=== PATIENT | male | born 1950 | race Caucasian/White ===

== ENCOUNTER 2023-07-06 09:17 | Outpatient (OUT) | payer MEDICARE, OTHER, SELFPAY ==
[2023-07-07 05:07] LABS: PSA, Free 0.93 ng/mL
== END 2023-07-06 09:18 | disposition home or self-care (01) ==
PROVIDERS: PCP Internal Medicine; Visit Provider Urology
DX: R97.20 Elevated prostate specific antigen [PSA] (principal); N40.1 Benign prostatic hyperplasia with lower urinary tract symptoms
CPT/HCPCS: 36415; 84153; 84154

== ENCOUNTER 2023-07-15 09:29 | Outpatient (OUT) | payer MEDICARE, OTHER, SELFPAY ==
[2023-07-15 10:08] LABS: Basophils Absolute Auto 0.1 10^3/uL (0.0-0.1); Eosinophils Absolute Auto 0.2 10^3/uL (0.0-0.7); Eosinophils Percent Auto 4.4 % (0.9-7.0); Hematocrit 37.6 % (42.0-54.0); Hemoglobin 13.1 g/dL (14.0-18.0); Immature Granulocytes Abs Auto 0.01 10^3/uL (0.00-0.03); Immature Granulocytes Pct Auto 0.2 % (0.0-0.5); Lymphocytes Absolute Auto 1.6 10^3/uL (1.2-3.8); Lymphocytes Percent Auto 31.3 % (20.5-60.0); Mean Corpuscular HGB Conc 34.8 g/dL (29.9-35.2); Mean Corpuscular Hemoglobin 32.1 pg (25.9-34.0); Mean Corpuscular Volume 92.2 fL (80.0-94.0); Mean Platelet Volume 9.8 fL (9.5-13.5); Monocytes Absolute Auto 0.5 10^3/uL (0.3-0.8); Monocytes Percent Auto 9.6 % (1.7-12.0); Neutrophils Absolute Auto 2.7 10^3/uL (1.4-6.5); Neutrophils Percent Auto 53.5 % (43.0-75.0); Platelet Count 188 10^3/uL (150-450); Red Blood Count 4.08 10^6/uL (4.70-6.10); Red Cell Distribution Width 12.1 % (11.0-15.0)
[2023-07-15 11:17] LABS: Creatinine Urine Random 27.89 mg/dL (20.00-300.00); Microalbum Creatinine Ratio Ur 46.6 mg/g (0.0-29.9); Microalbumin Urine Random <1.3 mg/dL (<=30.0)
[2023-07-15 11:21] LABS: Alanine Aminotransferase 22 U/L (16-63); Albumin Level 3.8 g/dL (3.4-5.0); Alkaline Phosphatase 74 U/L (46-116); Anion Gap 9.1; Aspartate Amino Transferase 17 U/L (15-37); BUN Creatinine Ratio 21.2; Bilirubin Total 0.9 mg/dL (0.2-1.0); Calcium 8.9 mg/dL (8.5-10.1); Carbon Dioxide 31.3 mmol/L (21.0-32.0); Chloride 103 mmol/L (98-107); Chol HDL Ratio 3.1; Cholesterol 138 mg/dL (<=200); Estimated GFR (African America >60 (>=60); Estimated GFR (Non-African Ame >60 (>=60); Globulin 3.7 g/dL; Glucose 129 mg/dL (74-106); HDL Cholesterol 44 mg/dL (40-60); LDL Cholesterol Calculated 86.4 mg/dL; Potassium 3.4 mmol/L (3.5-5.1); Sodium 140 mmol/L (136-145); Total Protein 7.5 g/dL (6.4-8.2); Triglycerides 38 mg/dL (<=150); VLDL CHOLESTEROL 7.6 mg/dL
[2023-07-15 14:23] LABS: Estimated Average Glucose 140 mg/dL; Glycohemoglobin A1C 6.5 % (4.5-6.2)
== END 2023-07-15 09:30 | disposition home or self-care (01) ==
LOC: LAB 09:33
PROVIDERS: PCP Internal Medicine; Visit Provider Internal Medicine
DX: E11.21 Type 2 diabetes mellitus with diabetic nephropathy (principal); N18.32 Chronic kidney disease, stage 3b; I12.9 Hypertensive chronic kidney disease with stage 1 through stage 4 chronic kidney disease, or unspecified chronic kidney disease
CPT/HCPCS: 36415; 80053; 80061; 82043; 82570; 83036; 85025

== ENCOUNTER 2023-11-04 09:42 | Outpatient (OUT) | payer MEDICARE, OTHER, SELFPAY ==
--- NOTE | 2023-11-04 10:21 | CA_ITS ---
Patient Name Site Name ALINE OROSCO [facility] Account No Medical Record Number Age Sex Date Time [id number] [facility]:[id number] M 11/04/2023 10:00 At the Request Of CASSANDRA BRYAN ECHOCARDIOGRAM REPORT PROCEDURE: CA ECHO DOPPLER COMPLETE INDICATIONS: Atrial fibrillation, hypertension, diabetes COMPARISON: None. DESCRIPTION: COMPLETE ECHOCARDIOGRAM Real-time transthoracic echocardiography with 2D, M-mode, spectral and color flow Doppler performed. QUALITY: Technical quality was good. 76 , 245#, BSA 2.42 m2 LEFT VENTRICLE: Normal chamber size. Mild concentric left ventricular hypertrophy. Normal systolic function. LV EF: Normal left ventricular ejection fraction, (55%). DIASTOLIC: Diastolic function is indeterminate. ATRIAL SEPTUM: LEFT ATRIUM: Moderate dilatation. RIGHT ATRIUM: Moderate dilatation. RIGHT VENTRICLE: Normal chamber size. Normal right ventricular systolic function. TRICUSPID VALVE: Normal mobility and thickness. No stenosis with trivial regurgitation. Doppler studies reveal moderately elevated right sided pressures. RVSP 45 mmHg MITRAL VALVE: Mildly thickened with normal mobility. No evidence of mitral valve stenosis. Mild mitral annular calcification. Trivial mitral regurgitation. AORTIC VALVE: Normal trileaflet appearance. Mildly calcified aortic valve. Normal leaflet mobility. No evidence of aortic valve stenosis. No aortic regurgitation. AORTIC ROOT: Normal diameter and appearance. PULMONIC VALVE: Normal thickness and mobility. No stenosis. Trivial regurgitation. PERICARDIUM: No evidence of pericardial effusion. IVC: Not well visualized. PLEURA: CONCLUSION: 1. Normal left ventricular systolic function. LVEF is 55%. 2. Normal right ventricular size and systolic function. 3. No significant valvular dysfunction. 4. Moderate biatrial dilatation. 5. Moderately elevated right-sided pressures. RVSP is 45 mmHg. Adult Echocardiography Procedure Report Left Ventricle LVEDD (3.7 - 5.6 cm): 4.94 cm LVESD (2.2 - 4.0 cm): 3.22 cm LVIVS thickness (0.6 - 1.2 cm): 1.38 cm LVPW thickness (0.5 - 1.0 cm): 1.16 cm e': 0.11 m/s E - e': 6.57 LVOT Max Gradient: 1.82 mm[Hg] LVOT Area (cm2): 0.67 m/s Peak Velocity (LVOT): 0.67 m/s Mean Velocity (LVOT): 0.47 m/s LVOT Diameter 2.43 cm Left Atrium LA Volume Index (2D A2C): 47.00 ml/m2 Left Atrium Systolic Dimension: 5.47 cm Mitral Valve MV E to A Ratio: 2.05 Mitral Valve A-Wave Peak Velocity: 0.35 m/s Mitral Valve E-Wave Peak Velocity: 0.71 m/s Right Ventricle Aorta AO Root Diam: 3.73 cm Ascending Ao Diam: 3.31 cm Aortic Valve AoV Area (Peak Rick): 2.68 cm2, 2.68 cm2 AoV Area (VTI): 4.09 cm2, 4.09 cm2 Peak Velocity(Antegrade Flow): 1.17 m/s Peak Gradient(Antegrade Flow): 5.47 mm[Hg] Mean Velocity(Antegrade Flow): 0.70 m/s Mean Gradient(Antegrade Flow): 2.36 mm[Hg] Velocity Time Integral: 22.35 cm Tricuspid Valve Peak Velocity (Regurgitant Flow): 3.06 m/s Pulmonic Valve Peak Velocity: 0.89 m/s Peak Gradient: 3.27 mm[Hg], 3.09 mm[Hg] Right Atrium Right Atrium Systolic Pressure: 62.82 ml, 62.82 ml Dictated by: Carlitos Soria M.D. on 11/04/2023 at 19:51 Approved by: Carlitos Soria M.D. on 11/04/2023 at 19:55
== END 2023-11-04 09:43 | disposition home or self-care (01) ==
LOC: CARD 09:42
PROVIDERS: PCP Internal Medicine; Visit Provider Nurse Practitioner
DX: I48.0 Paroxysmal atrial fibrillation (principal)
CPT/HCPCS: 93306

== ENCOUNTER 2024-01-04 08:59 | Outpatient (OUT) | payer MEDICARE, OTHER, SELFPAY ==
--- OUTSIDE RECORDS SUMMARY | 2024-01-04 09:20 | XMS_ITS | CCD ---
Author Name Unknown Address [address] [place] [address] Organization [facility] Care Team Providers Care Compensation Business Partner Name Role Phone PATTI THOMAS Referring Unavailable TEN ECKERT Admitting Unavailable TEN ECKERT Attending Unavailable PATTI THOMAS Primary Care Unavailable TEN ECKERT Admitting Unavailable TEN ECKERT Attending Unavailable RENETTA, PATTI Primary Care Unavailable PATTI THOMAS Referring Unavailable TEN ECKERT Admitting Unavailable TEN ECKERT Attending Unavailable PATTI THOMAS Primary Care Unavailable PATTI THOMAS Referring Unavailable PATTI THOMAS Primary Care Physician Cirilo Rehman Unavailable POST BELTRAN PATTI Primary Care Unavailable SIRI, DR DANNY Simon Admitting Unavailable SIRI, DR DANNY Simon Attending Unavailable SIRI, DR DANNY Simon Consulting Unavailable SANDIP, DR RONALDO Lancaster Consulting Unavailable MISC, DR FREED Attending Unavailable MISC, DR FREED Consulting Unavailable MISC, DR FREED Admitting Unavailable POST BELTRAN, PATTI Primary Care Unavailable MISC, DR FREED Attending Unavailable MISC, DR FREED Consulting Unavailable POST EMERJanelle, PATTI Primary Care Unavailable MISC, DR FREED Admitting Unavailable POST EMERJanelle, DR PATTI Abdul Consulting Van GONG, DR PATTI Abdul Admitting Unavai labkourtney GONG, PATTI Primary Care Unavailable POST BELTRAN, DR PATTI Abdul Attending Van GONG, DR PATTI Abdul Consulting CASSANDRA Weems Attending Unavailable TEN ECKERT Attending Unavailable CASSANDRA BRYAN Attending Unavailable Danny HORNER Referring Unavailable Danny HORNER Attending Unavailable Danny HORNER Attending Unavailable COOK, Danny P Attending Unavailable COOK, Danny P Attending Unavailable COOK, Danny P Admitting Unavailable COOK, Danny P Referring Unavailable COOK, Danny P Attending Unavailable COOK, Danny P Referring Unavailable COOK, Danny P Attending Unavailable COOK, Danny P Attending Unavailable COOK, Danny P Attending Unavailable COOK, Danny P Attending Unavailable PATTI THOMAS Attending Unavailab le Allergies Allergy Classification Reported Allergen(s) Allergy Type Date of Onset Reaction(s) Facility (8 sources) Adhesive Tape; Translations: [Tape] Propensity to adverse reactions (disorder) 0 rash, Unknown [facility] Repository (8 sources) Penicillins; Translations: [penicillins] Drug allergy (disorder) 9 Cutaneous eruption (morphologic abnormality), Moderate (severity modifier) (qualifier value) [facility] (8 sources) hydroCHLOROthia zide; Translations: [hydrochlorothi azide] Drug Allergy 1 unknown, ABNORMAL LABS [facility] Other (1 source) Penicillin G Drug Allergy Unknown [facility] Other (1 source) Adhesive agent Drug allergy (disorder) [facility] Repository (1 source) Penicillin Drug Allergy [facility] Rep[facility] (1 source) ADHESIVE TAPE-SILICONES; Translations: [ADHESIVE TAPE-SILICONES] Propensity to adverse reactions to drug (disorder) 2 [facility] Repository Medications Current Medications Medication Drug Class(es) Dates Sig (Normalized) Sig (Original) acetaminophen 325 mg / HYDROcodone bitartrate 7.5 mg oral tablet (2 sources) Opioid Agonist Start: 09-29-2023 Gary 325 mg-7.5 mg oral tablet See Instructions, 1 tab(s), Refill(s) 0, take 1 hr prior to procedure, [facility], 195, cm, 09/08/23 13:52:00 EDT, Height/Length Dosing, 110, kg, 09/08/23 13:52:00 EDT, Weight Dosing Start Date: 09/29/23 Status: Ordered acetaminophen 325 mg / traMADol hydrochloride 37.5 mg oral tablet (2 sources) Opioid Agonist Start: 09-29-2023 Ultracet 325 mg-37.5 mg Tab See Instructions, 20 tab(s), Refill(s) 0, take 1-2 tabs every 6 hrs as needed for pain - following procedure, [facility] 1155, 195, cm, 09/08/23 13:52:00 EDT, Height/Length Dosing, 110, kg, 09/08/23 13:52:00 EDT, Weight Dosing Start Date: 09/29/23 Status: Ordered amLODIPine 10 mg oral tablet (6 sources) Dihydropyridine Calcium Channel Teddy Start: 05-20-2019 take 1 tablet by mouth once daily amLODIPine 10 mg Tab 10 mg = 1 tab(s), Oral, Daily, Refills(s) 0, High blood pressure Start Date: 05/20/19 Status: Ordered apixaban 5 mg oral tablet (6 sources) Factor Xa Inhibitor Start: 02-05-2022 take 1 tablet by mouth twice daily Eliquis 5 mg oral tablet 5 mg = 1 tab(s), Oral, BID Start Date: 02/05/22 Status: Ordered take 1 tablet by mouth every twe lve hours Eliquis 5 MG 1 TABLET Orally TWICE A DAY Active aspirin 81 mg oral tablet (1 source) Platelet Aggregation Inhibitor, Nonsteroidal Anti-inflammatory Drug Start: 01-18-2020 take 1 mg by mouth once daily aspirin 81 mg oral tablet mg tab(s), Oral, Daily, Refills(s) 0 Start Date: 01/18/20 Status: Ordered ciprofloxacin 500 mg oral tablet (3 sources) Quinolone Antimicrobial Start: 09-29-2023 ciprofloxacin 500 mg Tab See Instructions, start 3 days prior to procedure - take 1 tab twice daily for 7 days, # 14 tab(s), Refills(s) 0, Pharmacy: [facility] 1155, 195, cm, 09/08/23 13:52:00 EDT, Height/Length Dosing, 110, kg, 09/08/23 13:52:00 EDT, Weight Dosing Start Date: 09/29/23 Status: Ordered Start: 06-29-2020 take 1 tablet by wojciech th every twelve hours Cipro 500 mg Tab 500 mg = 1 tab(s), Oral, q12hr Start Date: 06/29/20 Status: Ordered diazePAM 10 mg oral tablet (2 sources) Benzodiazepine Start: 09-29-2023 Valium 10 mg T ab See Instructions, take 1 hr prior to procedure, # 1 tab(s), Refills(s) 0, Pharmacy: [facility] 1155, 195, cm, 09/08/23 13:52:00 EDT, Height/Length Dosing, 110, kg, 09/08/23 13:52:00 EDT, Weight Dosing Start Date: 09/29/23 Status: Ordered flecainide acetate 100 mg oral tablet (2 sources) Antiarrhythmic Start: 02-05-2022 flecainide 100 mg Tab 100 mg = 1 tab(s), Oral Start Date: 02/05/22 Status: Ordered take 1 tablet by wojciech th every twelve hours Flecainide Acetate 100 MG 1 TABLET Orall y twice a day Active fosinopril sodium 40 mg oral tablet (6 sources) Angiotensin Converting Enzyme Inhibitor Start: 07-14-2019 take 1 tablet by mouth once daily fosinopril 40 mg Tab 40 mg = 1 tab(s), Oral, Daily, High blood pressure Start Date: 07/14/19 Status: Ordered metFORMIN hydrochloride 500 mg oral tablet (6 sources) Biguanide Start: 05-20-2019 take 500 mg by mouth twice daily metformin 500 mg, Oral, BID, Refills(s) 0, Blood glucose Start Date: 05/20/19 Status: Ordered 24 hr metoprolol succinate 50 mg extended release oral tablet (6 sources) beta-Adrenergic Teddy Start: 01-18-2020 take 1 mg by mouth once daily metoprolol 50 mg ER Tab mg tab(s), Oral, Daily, Refills(s) 0 Start Date: 01/18/20 Status: Ordered metroNIDAZOLE 500 mg oral tablet (5 sources) Nitroimidazole Antimicrobial Start: 06-29-2020 take 1 tablet by mouth three times daily MetroNIDAZOLE 500 mg Tab 500 mg = 1 tab(s), Oral, TID Start Date: 06/29/20 Status: Ordered omeprazole 20 mg delayed release oral capsule (5 sources) Proton Pump Inhibitor Start: 07-14-2023 take 1 mg by mouth once daily omeprazole 20 mg Cap-DR mg cap(s), Oral, Daily Start Date: 07/14/23 Status: Ordered take 1 capsule by mouth once gianni ly Omeprazole 20 MG 1 capsule 30 minutes before morning meal Orally Once a day Active Klor-Con (11 sources) Start: 02-05-2022 Klor-Con Oral Start Date: 02/05/22 Status: Ordered Start: 06-22-2019 take 1 tablet by wojciech th three times daily potassium chloride 20 mEq ER Tab 20 mEq = 1 tab(s), Oral, TID, Other (see comment) Start Date: 06/22/19 Status: Ordered simvastatin 40 mg oral tablet (6 sources) HMG-CoA Reductase Inhibitor Start: 05-20-2019 take 1 tablet by mouth once daily at bedtime simvastatin 40 mg Tab 40 mg = 1 tab(s), Oral, Once a day (at bedtime), Refills(s) 0, High cholesterol Start Date: 05/20/19 Status: Ordered traMADol hydrochloride 50 mg oral tablet (3 sources) Opioid Agonist Start: 09-30-2023 take 1 tablet by mouth every six hours Ultram 50 mg Tab 50 mg = 1 tab(s), Oral, q6hr, # 20 tab(s), Refills(s) 0, Pharmacy: [facility], 195, cm, 09/08/23 13:52:00 EDT, Height/Length Dosing, 110, kg, 09/08/23 13:52:00 EDT, Weight Dosing Start Date: 09/30/23 Status: Ordered Triamcinolone (5 sources) Corticosteroid Start: 07-14-2023 triamcinolone Once Start Date: 07/14/23 Status: Ordered Triamcinolone Ac etonide 0.1 % 1 application Externally Twice a day Active Completed/Discontinued Medications Medication Drug Class(es) Dates Sig (Normalized) Sig (Original) oxybutynin chloride 5 mg oral tablet (2 sources) Cholinergic Muscarinic Antagonist Start: 09-29-2023 take 1 tablet by mouth twice daily oxybutynin 5 mg Tab 5 mg = 1 tab(s), Oral, BID, PRN for urinary discomfort - 1 tab BID after procedure, # 10 tab(s), Refills(s) 0, Pharmacy: [facility], 195, cm, 09/08/23 13:52:00 EDT, Height/Length Dosing, 110, kg, 09/08/23 13:52:00 EDT, Weight Dosing Start Date: 09/29/23 Status: Ordered Problems Active Problems Problem Classification Problem Date Documented Date Episodic/Chronic Calculus of urinary tract (16 sources) History of calculus of kidney; Translations: [Personal history of urinary calculi] Onset: 1 Resolved: 1 Episodic Cardiac dysrhythmias (2 sources) Paroxysmal atrial fibrillation; Translations: [Paroxysmal atrial fibrillation] Onset: 3 Chronic Chronic kidney disease (3 sources) Chronic kidney disease stage 2; Translations: [Chronic kidney disease, stage 2 (mild)] Onset: 1 Resolved: 1 Chronic Chronic kidney disease (5 sources) Chronic kidney disease; Translations: [CHRONIC KIDNEY DISEASE STAGE 3B] Onset: 2 Complication of device; implant or graft (5 sources) Retained ureteric stent 07-22-2019 Episodic Diabetes mellitus with complications (3 sources) Disorder of kidney due to diabetes mellitus; Translations: [Type 2 diabetes mellitus with diabetic chronic kidney disease] Onset: 1 Resolved: 1 Chronic Diabetes mellitus without complication (5 sources) Diabetes mellitus 05-20-2019 Chronic Disorders of lipid metabolism (6 sources) Hypercholesterolemia; Translations: [Mixed hyperlipidemia] Onset: 2 06-30-2019 Chronic Essential hypertension (7 sources) Hypertensive disorder; Translations: [Essential (primary) hypertension] Onset: 2 05-20-2019 Chronic Genitourinary symptoms and ill-defined conditions (20 sources) Blood in urine; Translations: [Increased frequency of urination] Onset: 1 Resolved: 1 06-30-2019 Episodic Hyperplasia of prostate (8 sources) Benign prostatic hypertrophy with outflow obstruction; Translations: [Benign prostatic hyperplasia with lower urinary tract symptoms] Onset: 2 Chronic Hypertension with complications and secondary hypertension (6 sources) Chronic kidney disease due to hypertension; Translations: [Hypertensive chronic kidney disease with stage 1 through stage 4 chronic kidney disease, or unspecified chronic kidney disease] Onset: 1 Resolved: 1 Chronic Other aftercare (2 sources) Long-term current use of anticoagulant; Translations: [alf (current) use of anticoagulants] Onset: 3 Episodic Other diseases of bladder and urethra (5 sources) Hypertrophy of bladder 06-29-2020 Chronic Other diseases of kidney and ureters (1 source) Secondary hyperparathyroidism; Translations: [Secondary hyperparathyroidism of renal origin] Chronic Other diseases of kidney and ureters (2 sources) Urinary tract obstruction; Translations: [Other obstructive and reflux uropathy] Onset: 2 Episodic Other non-epithelial cancer of skin (5 sources) Malignant neoplasm of skin 05-20-2019 Episodic Other nutritional; endocrine; and metabolic disorders (1 source) Overweight in adulthood with body mass index of 25 or more but less than 30; Translations: [Body mass index (BMI) 28.0-28.9, adult] Onset: 2 Episodic Other nutritional; endocrine; and metabolic disorders (5 sources) Body mass index 25-29 - overweight 02-05-2022 Episodic Other screening for suspected conditions (not mental disorders or infectious disease) (12 sources) Raised prostate specific antigen; Translations: [Elevated prostate specific antigen [PSA]] Onset: 2 Episodic Unclassified (5 sources) Drug therapy finding 06-29-2020 Unclassified (2 sources) Other persistent atrial fibrillation; Translations: [Other persistent atrial fibrillation] Onset: 2 Past or Other Problems Problem Classification Problem Date Documented Da te Episodic/Chronic Acute and unspecified renal failure (1 source) Acute kidney failure, unspecified Onset: 09-11-2021 Resolved: 09-11-2021 Episodic Deficiency and other anemia (1 source) Anemia, unspecified Onset: 09-11-2021 Resolved: 09-11-2021 Episodic Other aftercare (4 sources) alf (current) use of anticoagulants; 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] Onset: 05-27-2022 Episodic Results Test Name Value Interpretation Reference Range Facil ity Screenson 10-29-2023 Screens [id number]# 1.00TIFF Normal [facility] Ambulatory Visit Summaryon 1 12-29-2022 Ambulatory Visit Summary ALINE TOMLIN :1950 Visit Date:10/28/2023 Ambulatory Visit Instructions Your Diagnosis BPH with obstruction/lower urinary tract symptoms Urinary retention Elevated PSA History of kidney stones Anticoagulated Tests Performed Urnls Dip Stick Auto w/o Microscopy POC [id number] Your Care Team Attending Physician - SIRI COLORADO, Danny Simon Primary Care Physician - PATTI THOMAS DO This Is Your Medications List Contact prescribing physician if questions or concerns amlodipine (amLODIPine 10 mg Tab) apixaban (Eliquis 5 mg oral tablet) fosinopril (fosinopril 40 mg Tab) metformin metoprolol (metoprolol 50 mg ER Tab) metronidazole (MetroNIDAZOLE 500 mg Tab) omeprazole (omeprazole 20 mg Cap-DR) potassium chloride (Klor-Con) potassium chloride (potassium chloride 20 mEq ER Tab) simvastatin (simvastatin 40 mg Tab) tramadol (Ultram 50 mg Tab) triamcinolone [Image Removed: STOP]Stop taking these medications acetaminophen-hydroco done (Gary 325 mg-7.5 mg oral tablet) acetaminophen-tramado l (Ultracet 325 mg-37.5 mg Tab) ciprofloxacin (ciprofloxacin 500 mg Tab) diazepam (Valium 10 mg Tab) oxybutynin (oxybutynin 5 mg Tab) Procedures Performed Cystoscopic removal of ureteric stent (07/25/2019), Cysto w/ homium laser (07/14/2019), ESWL of kidney (06/03/2019), Ureteral stent-placement set (05/18/2019), Cystoscopy, excision of skin cancers, Tonsillectomy. Discharge Vitals Heart Rate (Peripheral) 62 Respiratory Rate 16 Blood Pressure 137/76 Height 195 cm Height 77 in Weight 110 kg Weight 242 lb BMI 28.93 What to do next Scheduled Follow-Up Appointments Thursday 9:15 AM EDT With: SIRI COLORADO, Danny Simon Where: [facility] Patient Educationon 10-28-20 Patient Education Urology Benign Prostatic Hyperplasia Benign prostatic hyperplasia (BPH) is an enlarged prostate gland that is caused by the normal aging process. The prostate may get bigger as a man gets older. The condition is not caused by cancer. The prostate is a walnut-sized gland that is involved in the production of semen. It is located in front of the rectum and below the bladder. The bladder stores urine. The urethra carries stored urine out of the body. An enlarged prostate can press on the urethra. This can make it harder to pass urine. The buildup of urine in the bladder can cause infection. Back pressure and infection may progress to bladder damage and kidney (renal) failure. What are the causes? This condition is part of the normal aging process. However, not all men develop problems from this condition. If the prostate enlarges away from the urethra, urine flow will not be blocked. If it enlarges toward the urethra and compresses it, there will be problems passing urine. What increases the risk? This condition is more likely to develop in men older than 50 years. What are the signs or symptoms? Symptoms of this condition include: ? Getting up often during the night to urinate. ? Needing to urinate frequently during the day. ? Difficulty starting urine flow. ? Decrease in size and strength of your urine stream. ? Leaking (dribbling) after urinating. ? Inability to pass urine. This needs immediate treatment. ? Inability to completely empty your bladder. ? Pain when you pass urine. This is more common if there is also an infection. ? Urinary tract infection (UTI). How is this diagnosed? This condition is diagnosed based on your medical history, a physical exam, and your symptoms. Tests will also be done, such as: ? A post-void bladder scan. This measures any amount of urine that may remain in your bladder after you finish urinating. ? A digital rectal exam. In a rectal exam, your health care provider checks your prostate by putting a lubricated, gloved finger into your rectum to feel the back of your prostate gland. This exam detects the size of your gland and any abnormal lumps or growths. ? An exam of your urine (urinalysis). ? A prostate specific antigen (PSA) screening. This is a blood test used to screen for prostate cancer. ? An ultrasound. This test uses sound waves to electronically produce a picture of your prostate gland. Your health care provider may refer you to a specialist in kidney and prostate diseases (urologist). How is this treated? Once symptoms begin, your health care provider will monitor your condition (active surveillance or watchful waiting). Treatment for this condition will depend on the severity of your condition. Treatment may include: ? Observation and yearly exams. This may be the only treatment needed if your condition and symptoms are mild. ? Medicines to relieve your symptoms, including: ? Medicines to shrink the prostate. ? Medicines to relax the muscle of the prostate. ? Surgery in severe cases. Surgery may include: ? Prostatectomy. In this procedure, the prostate tissue is removed completely through an open incision or with a laparoscope or robotics. ? Transurethral resection of the prostate (TURP). In this procedure, a tool is inserted through the opening at the tip of the penis (urethra). It is used to cut away tissue of the inner core of the prostate. The pieces are removed through the same opening of the penis. This removes the blockage. ? Transurethral incision (TUIP). In this procedure, small cuts are made in the prostate. This lessens the prostate's pressure on the urethra. ? Transurethral microwave thermotherapy (TUMT). This procedure uses microwaves to create heat. The heat destroys and removes a small amount of prostate tissue. ? Transurethral needle ablation (TUNA). This procedure uses radio frequencies to destroy and remove a small amount of prostate tissue. ? Interstitial laser coagulation (ILC). This procedure uses a laser to destroy and remove a small amount of prostate tissue. ? Transurethral electrovaporization (TUVP). This procedure uses electrodes to destroy and remove a small amount of prostate tissue. ? Prostatic urethral lift. This procedure inserts an implant to push the lobes of the prostate away from the urethra. Follow these instructions at home: ? Take [id number] and prescription medicines only as told by your health care provider. ? Monitor your symptoms for any changes. Contact your health care provider with any changes. ? Avoid drinking large amounts of liquid before going to bed or out in public. ? Avoid or reduce how much caffeine or alcohol you drink. ? Give yourself time when you urinate. ? Keep all follow-up visits. This is important. Contact a health care provider if: ? You have unexplained back pain. ? Your symptoms do not get better with treatment. ? You develop side effects from the medicine (more content not included)... Normal [facility] Urology Office/Clinic Noteon 10-28-2023 Urology Office/Clinic Note Chief Complaint F/U to [facility] Staff 72 year old male here for 2 week follow up to [facility] done 10/12/23, cath removed IO 10/14 Previous Dx: Elevated psa, Urinary retention, bph with luts, hx of kidney stones Dysuria: no Incomplete bladder emptying: no, PVR 164mL. Hematuria: UA shows large, Pt. states the start of his stream is pink Frequency: Pt. states depends on how much he drinks Urgency: no Nocturia: 1x Stream: good stream Post void dripping: no Wearing pads/ Depends: no Urge incontinence: no Stress incontinence: no Incontinence without Sensory Awareness: no Abdominal pain: no Flank pain: no History of Present Illness Tests reviewed: reviewed UA I have reviewed the previous health record information and history for this patient from Dr. Horner. I have reviewed and verified the staff HPI to be accurate for this encounter. There have been no associated fever, chills, flank pain, or blood in the urine. Denies any urinary infections since last encounter. Review of Systems PHQ Score Initial Depression Screen Score: 0 SCORE ROS - Provider Constitutional: denies weight loss, denies hot flashes. Eyes: denies eye problems. Gastrointestinal: denies nausea, denies vomiting. Cardiovascular: denies chest pain or angina. Integumentary: no dryness Musculoskeletal: denies musculoskeletal symptoms. ENMT: denies otolaryngeal symptoms. Respiratory: no shortness of breath. Heme/Lymph: denies easy bleeding tendency, denies easy bruising tendency. Psychiatric: no confusion, no anxiety. Genitourinary: See HPI. Physical Exam Vitals & Measurements HR: 62(Peripheral) RR: 16 BP: 137/76 HT: 77 in HT: 195 cm WT: 110 kg WT: 242 lb BMI: 28.93 General Appearance: alert, no distress, well nourished, well developed male. Genitourinary: normal scrotum, normal testes, normal urethra, normal epididymis, normal vas deferens/spermatic cord. Flank Pain: none. Bladder: nonpalpable. Assessment/Plan Pt here for follow up to recent REZUM procedure. Pt here w/ today Portions of this record may have been created with voice recognition artificial intelligence software, specifically [employer], [employer] and or [employer]. Substitutions may have occurred due to the inherent limitations of voice recognition and artificial intelligence software. 1. BPH with obstruction/lower urinary tract symptoms (N40.1: Benign prostatic hyperplasia with lower urinary tract symptoms) S/p Cysto 08/04/23 - prostate was obstructing, measures about 4cm long with lateral lobe hypertrophy and a moderately high riding bladder neck, universal protrusion of the prostate into the bladder lumen and the prostate in that location was quite vascular, the rest of the bladder demonstrates grade 3 trabeculation S/p REZUM 10/12/23. Cantrell removed 10/14/23. IPSS 3 (9) UA today shows large blood. Intermittent pink tinged urine at the beginning of stream. Happy w/ procedure so far. -F/up in January w/ PVR 2. Urinary retention (R33.9: Retention of urine, unspecified) PVR (cc): 07/14/23 - 310 10/28/23 - 164 See #1 3. Elevated PSA (R97.20: Elevated prostate specific antigen [PSA]) PSA: 12/13/18 - 3.89 06/07/20 - 4.64 01/07/21 - 3.90 & 15% 01/30/22 - 4.88 02/02/23 - 5.30 & 15% 07/06/23 - 5.00 & 19% -PSA due in January 4. History of kidney stones (Z87.442: Personal history of urinary calculi) KUB 02/02/23 - Neg for stones. Asymptomatic. 5. Anticoagulated (Z79.01: director long term care (current) use of anticoagulants) Eliquis. Pt restarted Eliquis on 10/19/23. Overall he is doing fairly well. Already has decreased his IPSS score to about half of what it was previously. He still has some moderate urinary retention but this is improved as documented above. He already has a follow-up in January 2024 with a repeat free and total PSA. He is already happy with the results and hopefully he will improve even more as the bladder outlet opens with resolution of the steam effect on the prostate. Follow-up With When Contact Information SIRI COLORADO, Danny Simon, URL [address] [place] [address] [place] [phone] Additional Instructions: January w/ PSA & PVR Patient Education Benign Prostatic Hyperplasia I, Stacy Medeiros, personally scribed for Dr. Horner on 10/28/2023 08:22:15. . Documentation recorded by the scribe, Stacy Medeiros, accurately reflects the services(s) I performed and decisions made by me. Authenticated by Dr. Horner on 10/28/2023 08:24:36. Problem List/Past Medical History Ongoing Anticoagulated Bladder wall thickening BMI 28.0-28.9,adult BPH with obstruction/lower urinary tract symptoms Elevated PSA Frequent urination History of kidney stones Kidney stone Microscopic hematuria Nocturia Retained ureteral stent Urinary retention Urinary urgency Historical Cancer of skin DM - Diabetes mellitus Hyp (more content not included)... Normal [facility] Comment on above: Result Comment: Elec tronically Signed By: Danny HORNER MD\.br\Date and Time Signed: 10/28/23 08:25 EST\.br\Electronically Co-Signed By: Stacy Medeiros\.br\Date and Time Co-Signed: 10/28/23 08:22 EST Office Visiton 10-26-2023 Follow-up visit [id number] Aline Tomlin 1950 M Date Provider Department Center 10/26/2023 Shamika6-CASSANDRA [facility] Family History Problem Relation Age of Onset Other Father Family Status - Relation Status Age at Father Level of Service:96773 ID OFFICE/OUTPATIENT ESTABLISHED MOD MDM 30 MIN Normal [facility] Ambulatory Visit Summaryon 1 12-15-2022 Ambulatory Visit Summary ALINE TOMLIN :1950 Visit Date:10/14/2023 Ambulatory Visit Instructions Your Care Team Attending Physician - Danny HORNER MD Primary Care Physician - PATTI THOMAS DO Referring Physician - Danny HORNER MD This Is Your Medications List acetaminophen-hydroco done (Gary 325 mg-7.5 mg oral tablet) acetaminophen-tramado l (Ultracet 325 mg-37.5 mg Tab) amlodipine (amLODIPine 10 mg Tab) apixaban (Eliquis 5 mg oral tablet) ciprofloxacin (ciprofloxacin 500 mg Tab) diazepam (Valium 10 mg Tab) fosinopril (fosinopril 40 mg Tab) metformin metoprolol (metoprolol 50 mg ER Tab) metronidazole (MetroNIDAZOLE 500 mg Tab) omeprazole (omeprazole 20 mg Cap-DR) oxybutynin (oxybutynin 5 mg Tab) potassium chloride (Klor-Con) potassium chloride (potassium chloride 20 mEq ER Tab) simvastatin (simvastatin 40 mg Tab) tramadol (Ultram 50 mg Tab) triamcinolone Procedures Performed Cystoscopic removal of ureteric stent (07/25/2019), Cysto w/ homium laser (07/14/2019), ESWL of kidney (06/03/2019), Ureteral stent-placement set (05/18/2019), Cystoscopy, excision of skin cancers, Tonsillectomy. What to do next Scheduled Follow-Up Appointments Thursday 8:00 AM EST With: SIRI COLORADO, Danny Simon Where: [facility] Normal [address] [place] [address]- \.br\ Medications\.br\ What How Much When Instructions\.br\ Unchanged acetaminophen-hydroc odone (Gary 325 mg-7.5 mg oral tablet) See instructions take 1 hr prior to procedure \.br\ Unchanged acetaminophen-tramad ol (Ultracet 325 mg-37.5 mg Tab) See instructions take 1-2 tabs every 6 hrs as needed for pain - following procedure \.br\ Unchanged amlodipine (amLODIPine 10 mg Tab) 1 Tablets By Mouth Every day\.br\ Unchanged apixaban (Eliquis 5 mg oral tablet) 1 Tablets By Mouth 2 times a day\.br\ Unchanged ciprofloxacin (ciprofloxacin 500 mg Tab) See instructions start 3 days prior to procedure - take 1 tab twice daily for 7 days \.br\ Unchanged diazepam (Valium 10 mg Tab) See instructions take 1 hr prior to procedure \.br\ Unchanged fosinopril (fosinopril 40 mg Tab) 1 Tablets By Mouth Every day\.br\ Unchanged metformin 500 Milligram By Mouth 2 times a day\.br\ Unchanged metoprolol (metoprolol 50 mg ER Tab) By Mouth Every day\.br\ Unchanged metronidazole (MetroNIDAZOLE 500 mg Tab) 1 Tablets By Mouth 3 times a day\.br\ Unchanged omeprazole (omeprazole 20 mg Cap-DR) By Mouth Every day\.br\ Unchanged oxybutynin (oxybutynin 5 mg Tab) 1 Tablets By Mouth 2 times a day PRN for urinary discomfort - 1 tab BID after procedure \.br\ Unchanged potassium chloride (Klor-Con) By Mouth\.br\ Unchanged potassium chloride (potassium chloride 20 mEq ER Tab) 1 Tablets By Mouth 3 times a day\.br\ Unchanged simvastatin (simvastatin 40 mg Tab) 1 Tablets By Mouth Once a day (at bedtime)\.br\ Unchanged tramadol (Ultram 50 mg Tab) 1 Tablets By Mouth Every 6 hours\.br\ Unchanged triamcinolone Once\.br\ Allergies\.br\ Tape (rash)\.br\ hydroCHLOROthiazide (unknown)\.br\ penicillins (Rash, Moderate)\.br\ Problems\.br\ Ongoing - Any problem that you are currently receiving treatment for.\.br\ Anticoagulated\.br\ Bladder wall thickening\.br\ BMI 28.0-28.9,adult\.br\ BPH with obstruction/lower urinary tract symptoms\.br\ Elevated PSA\.br\ Frequent urination\.br\ History of kidney stones\.br\ Kidney stone\.br\ Microscopic hematuria\.br\ Nocturia\.br\ Retained ureteral stent\.br\ Urinary retention\.br\ Urinary urgency\.br\ Historical - Any problem that you are no longer receiving treatment for.\.br\ Cancer of skin\.br\ DM - Diabetes mellitus\.br\ Hypertension\.br\ Patient Survey\.br\ You may receive a survey via text or e-mail asking about your office visit. Please share your experience with us by completing your survey. We appreciate your feedback and thank you for choosing us for your care.\.br\ \.br\ [facility] Consent for Procedure/Surger yon 10-12-2023 Consent for Procedure/Surgery [id number] .00TIFF Normal [facility] Consent for Treatmenton Consent for Treatment [id number] .00TIFF [facility] Inpatient Patient Summaryon 10-12-2023 Inpatient Patient Summary [place] [id number] Clinical Summary Person Information Name: ALINE TOMLIN Age: 72 Years : 1950 Sex: Male PCP: PATTI THOMAS DO Franko Marital Status: Race: White Ethnicity: Non- or Language: Maltese Visit Id: Visit Reason: BPH WITH LUTS Speciality: Acuity: Enc Type: Outpatient Med Service: Surgery Arrival: 10/12/2023 13:08:10 Discharge: Dispo Type: Address: [address] [place] [address] [id number] Provider Notes: Diagnosis: Other obstructive and reflux uropathy Problems Active Urinary retention BMI 28.0-28.9,adult Elevated PSA History of kidney stones Urinary urgency Anticoagulated Bladder wall thickening BPH with obstruction/lower urinary tract symptoms Microscopic hematuria Kidney stone Retained ureteral stent Nocturia Frequent urination Smoking Status: Functional Status: Sensory Deficits: History of Falls: Mobility Assistance Prior to Admission: ADLs: Current Level of Assistance for Self-Care/Mobility: Cognitive Status: Allergies penicillins () () Tape (rash) hydroCHLOROthiazide (unknown) Laboratory or Other Results This Visit (last charted value for your 10/12/2023 visit) No Laboratory or Other Results This Visit Measurements: Height: 195 cm Weight: Blood Pressure: Not Valued / Not Valued BMI: Procedures No Procedures Documented Immunizations No Immunizations Documented This Visit Final Med List: acetaminophen-hydroco done (Gary 325 mg-7.5 mg oral tablet) take 1 hr prior to procedure. Refills: 0. acetaminophen-tramado l (Ultracet 325 mg-37.5 mg Tab) take 1-2 tabs every 6 hrs as needed for pain - following procedure. Refills: 0. amlodipine (amLODIPine 10 mg Tab) 1 Tablets By Mouth every day. apixaban (Eliquis 5 mg oral tablet) 1 Tablets By Mouth 2 times a day. ciprofloxacin (ciprofloxacin 500 mg Tab) start 3 days prior to procedure - take 1 tab twice daily for 7 days. Refills: 0. diazepam (Valium 10 mg Tab) take 1 hr prior to procedure. Refills: 0. fosinopril (fosinopril 40 mg Tab) 1 Tablets By Mouth every day. metformin 500 Milligram By Mouth 2 times a day. metoprolol (metoprolol 50 mg ER Tab) By Mouth every day. metronidazole (MetroNIDAZOLE 500 mg Tab) 1 Tablets By Mouth 3 times a day. omeprazole (omeprazole 20 mg Cap-DR) By Mouth every day. oxybutynin (oxybutynin 5 mg Tab) 1 Tablets By Mouth 2 times a day. PRN for urinary discomfort - 1 tab BID after procedure. Refills: 0. potassium chloride (Klor-Con) By Mouth. potassium chloride (potassium chloride 20 mEq ER Tab) 1 Tablets By Mouth 3 times a day. simvastatin (simvastatin 40 mg Tab) 1 Tablets By Mouth once a day (at bedtime). tramadol (Ultram 50 mg Tab) 1 Tablets By Mouth every 6 hours. Refills: 0. triamcinolone Once. Care Team Members: Attending Physician: Danny HORNER MD Consulting Physician: Referring Physician: Danny HORNER MD Follow up: With: Address: When: Danny Smith [facility], [address], [place] [address] Business (1) Within 1 week Comments: Call for followup appointment next week. Push fluids to keep the urine clear. The plan will be for you to stay off of your Eliquis until seen in the office but if you are having no bleeding even by Thursday of this week, please give the office a call. We may restart your Eliquis sooner. Type Location Start Finish State [place]RO Office [place] [facility] [place] 01/12/2024 9:45 AM 01/12/2024 10:00 AM Confirmed Patient Education Information: EU - Rezum Discharge Instructions (Custom) [facility] IntraOperative Documentson 1 12-13-2022 IntraOperative Documents [id number] .00TIFF [facility] Main OR Intraoperative Recor don 10-12-2023 Main OR Intraoperative Record IntraOp Document Type FTURO Summary Primary Physician: Danny HORNER MD Finalized Date/Time: 10/12/23 14:57:45 Pt. Name: ALINE TOMLIN/Sex: 1950 Male Med Rec #: [id number] Physician: Danny HORNER MD Financial #: [id number] Pt. Type: O Room/Bed: / Admit/Disch: 10/12/23 13:08:10 - Institution: Case Times FTURO Entry 1 Patient Times In Room 10/12/23 14:45:00 Out Room 10/12/23 15:05:00 Procedure Times Start 10/12/23 14:50:00 Stop 10/12/23 15:00:00 Anesthesia Times Last Modified By: Marta DENNY, EARLENE, Racquel 10/12/23 14:56:25 Case Attendance FTURO Entry 1 Entry 2 Entry 3 Case Attendee SIRI COLORADO, Danny Lozano RN, CNOR, Winston VENTURA, Allyson Clement Role Performed Surgeon - Primary Camp Coordinator - Primary Scrub - Primary Time In 10/12/23 14:45:00 10/12/23 14:45:00 10/12/23 14:45:00 Time Out 10/12/23 15:05:00 10/12/23 15:05:00 10/12/23 15:05:00 Procedure CYSTOSCOPY LOCAL CYSTOSCOPY LOCAL CYSTOSCOPY LOCAL REZUM(.) REZUM(.) REZUM(.) Comments Last Modified By: Marta DENNY, THAIOR, Marta DENNY, THAIOR, Marta DENNY, THAIOR, Racquel 10/12/23 Racquel 10/12/23 Racquel 10/12/23 14:56:26 14:56:26 14:56:26 Surgical Procedures FTURO Entry 1 Procedure Description Procedure CYSTOSCOPY LOCAL REZUM Modifiers . Surgeon Description CYSTOSCOPY LOCAL REZUM Primary Procedure Yes Primary Surgeon SIRI COLORADO, Danny Simon Start 10/12/23 14:50:00 Stop 10/12/23 15:00:00 Anesthesia Type Local Surgical Service Urology Wound Class 2 - Clean-Contaminated Last Modified By: Marta DENNY, THAIOR, Racquel 10/12/23 14:56:27 General Comments: treatments x 6 General Case Data FTURO Pre-Care Text: Classifies surgical wound, implements aseptic technique, initiates traffic control Entry 1 Case Information OR URO 1 FT Case Level None Wound Class 2 - Clean-Contaminated Specialty Urology Preop Diagnosis BPH WITH LUTS Postop Same As Preop Yes Postop Diagnosis BPH WITH LUTS Outcomes Met? Yes Last Modified By: Marta DENNY, EARLENE, Racquel 10/12/23 13:53:02 Post-Care Text: The patient is free from signs and symptoms of infection EU IntraOp - FTURO Pre-Care Text: Implements protective measures prior to operative or invasive procedure, confirms identity before the operative or invasive procedure, verifies operative procedure, surgical site, and laterality Entry 1 EU Perioperative Protocols Procedure(s) CYSTOSCOPY LOCAL Patient Identity Birthday, ID Raheem PHOENIX(.) Verified (select at Check, Patient least 2): Participation Consents / H and P HandP, Surgery/Procedure Operative Site N/A Verified Consent Marking Verified Surgical Site Yes Laterality Verified n/a Verified Procedure Verified Yes Correct Patient Yes Position Verified Availability Equipment, Implant, Time Out Danny HORNER MD, Verified (If Medication Participants Marta DENNY, THAIOR, Applicable) Winston Clement DINKEY BRAKEMAN, Allyson Gustafson Time Out Complete 10/12/23 14:48:00 Allergies Reviewed? Yes Allergies Reviewed Self/Patient With Body Position Low Lithotomy Prep Area penis Prep Agents Betadine Solution Skin. Condition Unable to Visualize Additional None Specimens Collected Vitals - EU Blood Pressure Pulse Respirations SPO2 EBL 0 IandO - EU Total Intake 0 mL Total Output 0 mL Outcomes Met? Yes Last Modified By: EARLENE Lozano RN, Ruthann 10/12/23 14:50:28 Post-Care Text: The patient is free from signs and symptoms of injury caused by extraneous objects Sign Out FTURO Entry 1 Before Patient Leaves OR Nurse verbally Yes Nurse verbally n/a confirms with the confirms with the team the name of team that the procedure(s) instrument, sponge, recorded and needle counts are correct (or N/A) Nurse verbally n/a Nurse verbally n/a confirms with the confirms with the team how the team whether there specimen is labeled are any equipment (including patient problems to be name), if applicable addressed Sign Out Complete 10/12/23 15:04:00 Last Modified By: EARLENE Lozano RN, Ruthann 10/12/23 14:56:38 Case Comments Finalized By: EARLENE Lozano RN, Ruthann Document Signatures Signed By: EARLENE Lozano RN, Ruthann 10/12/23 14:56 EARLENE Lozano RN, Ruthann 10/12/23 14:57 Normal [facility] Main OR Preoperative Recordo n 10-12-2023 Main OR Preoperative Record Holding Area Document Type FTURO Summary Primary Physician: Danny HORNER MD Finalized Date/Time: 10/12/23 14:53:30 Pt. Name: ALINE TOMLIN /Sex: 1950 Male Med Rec #: [id number] Physician: Danny HORNER MD Financial #: [id number] Pt. Type: O Room/Bed: / Admit/Disch: 10/12/23 13:08:10 - Institution: Case Times Holding FTURO Pre-Care Text: Verifies consent for planned procedure, identifies individual values and wishes concerning care, includes family members in perioperative teaching Secures patient's records' belongings, and valuables, maintains patient's dignity and privacy, and maintains patient confidentiality Entry 1 In Holding 10/12/23 13:47:00 Outcomes Met? Yes Last Modified By: Patti Jurado LPN 10/12/23 13:47:58 Post-Care Text: The patient participates in decisions affecting his or her perioperative plan of care The patient's right to privacy is maintained Surgery Checklist FTURO Entry 1 Patient Birthday, ID Band Procedure History and Physical, Identification: Check, Patient Verification: Surgical Consent, With Participation Patient NPO after Midnight: n/a Date/Time: 10/12/23 13:48:00 Personal Items: Glasses Personal Items bilat hearing aids, Comment: glasses Limitations: hard of hearing, up ad Complaints of Pain: No klarissa Skin Integrity Intact, State Center, Warm, & Dry Vitals - EU Blood Pressure 166/88 Pulse 64 bpm Respirations 20 br/min SPO2 96 % RN Reviewed Yes Last Modified By: EARLENE Lozano RN, Ruthann 10/12/23 14:53:28 General Comments: Temp 36.6 Finalized By: EARLENE Lozano RN, Ruthann Document Signatures Signed By: Patti Jurado LPN 10/12/23 13:49 EARLENE Lozano RN, Ruthann 10/12/23 14:53 Normal [facility] Operative Reporton 3 Operative Report Patient: ALINE TOMLIN Age: 72 years Sex: Male : 1950 Associated Diagnoses: None Author: Danny HORNER MD Procedure Operative Information Details: Date/ Time: 10/12/2023 14:57:00. Pre-Op Dx: BPH w/ LUTS - N40.1, Urinary Retention - R33.8. Post-Op Dx: Same. Anesthesia Type: Local. Procedure: REZUM ablation of the prostate. Complications: None. Risks/Benefits/Inform ed Consent: Surgical risks, benefits, details of the procedure have been explained to the patient, Full informed consent has been obtained. Indications: The patient has BPH with LUTS and presents for the REZUM trans-urethral water vapor ablation of the prostate, He understands the risks, benefits, details of this procedure including but not limited to bleeding, infection, continued difficulties urinating, blood in the semen, pain during urination, increased urinary frequency, Despite these risks, among others, he wishes to proceed. Intraoperative Information Prepped: The patient is brought back to the operative suite, The patient is placed in the supine position, 10 cc of 2% viscous Xylocaine jelly prior to the catheterization, The bladder is catheterized with a 16 Fr straight catheter, 60 cc of 1% xylocaine solution is instilled followed by 10 cc of 2% viscous Xylocaine jelly, After waiting approximately 20 minutes, he is positioned in the modified dorso-lithotomy position and prepped in the usual fashion, The 30-degree cystoscope lens is placed, The anterior urethra, membranous urethra, and prostatic urethra is visualized. Procedure: The bladder demonstrates no tumor or stones, 6 targeted treatments were delivered to the prostate, staying at least 1 cm from the bladder neck, Each location is treated for 9 seconds, per protocol, 5 treatments were given into the lateral lobes by 1 cm, 1 treatments administered to the median lobe, The bladder is again inspected and is free of injury and is clear of blood clots, A Cantrell catheter is placed, the balloon inflated, and leg bag attached. Specimens Removed: None. Devices Implanted: None. Postoperative Information Discharge: The patient tolerates the procedure well and is discharged home in satisfactory condition, Discharge instructions are provided, Leg bag for Cantrell. Follow up next week for Cantrell removal. Stay off Eliquis until your office visit unless you have no bleeding by Thursday. Call the office if this is the case. . Normal [facility] Comment on above: Result Comment: Elec tronically Signed By: Danny HORNER MD\.br\Date and Time Signed: 10/12/23 14:58 EST Outpatient Surgery Discharge Instructionon 10-12-2023 Outpatient Surgery Discharge Instruction [address] [address] Patient Discharge Instructions PERSON INFORMATION Name: ALINE TOMLIN Date of : 1950 Current Date: 10/12/2023 15:00:07 PHYSICIANS Admitting Physician: Danny HORNER MD Comment: Discharge Diagnosis: Other obstructive and reflux uropathy ALIEN TOMLIN has been given the following list of follow-up instructions, prescriptions, and patient education materials: IF UNABLE TO CONTACT YOUR PHYSICIAN AND YOU FEEL IT IS AN EMERGENCY, GO TO THE NEAREST EMERGENCY ROOM OR CALL 911 Follow up: With: Address: When: Danny HORNER [address] [place], [place] [address], [address], [address] [address] Business (1) Within 1 week Comments: Call for followup appointment next week. Push fluids to keep the urine clear. The plan will be for you to stay off of your Eliquis until seen in the office but if you are having no bleeding even by Thursday of this week, please give the office a call. We may restart your Eliquis sooner. Type Location Start [facility] URO [place] [facility] [place] [facility] 01/12/2024 9:45 AM 01/12/2024 10:00 AM Confirmed Comment: PATIENT EDUCATION INFORMATION Instructions: Rezum Post-Procedure Instructions General Recommendations 1. Drink some extra fluids (water preferred) for the first few days following the procedure. Avoid alcohol and caffeine until your irritative symptoms have resolved. 2. Take the medication as prescribed by your doctor. Usually this will include an antibiotic, pain medication or antispasmodic if needed. 3. Avoid lifting heavy objects (>10 lbs) or excessive straining as this may cause bleeding in the first week after surgery. 4. Catheter instructions: ? You will go home with a Cantrell catheter attached to a catheter bag. ? Follow your doctor?s instructions. 5. You may resume your normal diet. Common Treatment Related Symptoms The following are common treatment related signs and symptoms that you may experience after the procedure. They may also occur following removal of the catheter. After the procedure, your general urinary symptoms may temporarily worsen and then gradually improve. 1. Blood in the Urine. It is common to see some blood in the urine for 1 to 2 weeks. Limit any physical activities and drink some extra water to flush the bladder but you do not need to drink excessively or be alarmed. If you think the bleeding is excessive or you are having trouble urinating, call the number below. 2. Painful Urination. It is common to have some pain or burning with urination for 1 to 2 weeks. It should gradually improve. If it persists or starts to worsen, call the number below. 3. Slow Urinary Stream. After the procedure, swelling of the prostate occurs which may or may not make the urinary stream weaker. This should gradually improve. If you are having a lot of difficulty trying to urinate or cannot urinate, call your doctor. 4. Urinary Urgency, Frequency or Leakage. You may experience frequency and/or a strong urge to urinate while the prostate heals. Sometimes, you may find the urge is so strong that it is difficult to hold your urine and leakage can occur. 6. Blood in the Semen. This may occur up to several weeks following the procedure. The semen may have red or a ?cody? color. This condition will almost always resolve without any treatment. You should not be alarmed. Frequently Asked Questions Your Treating Doctor may override these recommendations. You should follow his/her instructions. 1. When can I resume normal physical activities? You may resume your daily activities immediately. You should limit vigorous workouts such as bike riding, running, treadmills, and heavy weight lifting for the first week. If you experience any bleeding, limit your activities and increase your water intake. 2. When can I resume sexual activity? In general, once you do not see any blood in the urine you may resume sexual activity. You may experience blood in the semen as described in the ?Common Treatment Related Symptoms? section. 3. When can I resume my medications including blood thinners? In general, you should continue with any of your regular medications but check with your doctor. Wait until your next office visit to decide when to restart any blood thinners. 4. When can I go back to work? In general, you can return to work the following day. If you are taking pain medication (narcotics) or have a physical job (lifting, construction work, etc.), check with your doctor. 5. When can I have an alcoholic beverage? You should avoid any alcohol until your irritative symptoms have resolved, typically 1-2 weeks. Alcohol is a bladder irritant and can worsen your symptoms. You should also follow the instructions regarding alcohol intake on the labels of your prescription medication. Contact your Doctor Immediately If you experience: 1. Fever (oral (more content not included)... Normal [facility] Formson 09-30-2023 Forms [id number]. 00TIFF Normal [facility] Formson 09-29-2023 Forms [id number]. 00TIFF [facility] Consenton 09-09-2023 Consent [id number] .00TIFF [facility] Screenson 09-09-2023 Screens [id number] 1.00TIFF [facility] Urology Office/Clinic Noteon 09-09-2023 Urology Office/Clinic Note Chief Complaint Pt is here to discuss UroLift/REZUM HPI Staff Aline is a 72 y.o. male here for 1 month follow up to discuss REZUM or UroLift. Previous Dx: bladder wall thickening, BPH w/ obstruction/lower urinary tract symptoms, elevated PSA, frequent urination, history of kidney stones, microscopic hematuria, nocturia, retained ureteral stent, urinary retention, urinary urgency. S/P cystoscopy done on 08/04/23, cysto/stent removal done on 07/25/19, cysto/holmium laser done on 07/14/19. Dysuria: denies Incomplete bladder emptying: denies Hematuria: denies Frequency: yes depending on fluid intake Urgency: mild Nocturia: 1x a night Stream: steady stream Leaking: denies Post void dripping: denies Wearing pads/ Depends: denies Urge incontinence: denies Stress incontinence: denies Incontinence without Sensory Awareness: denies Abdominal pain: denies Flank pain: denies Sexual complaints: _ History of Present Illness Tests reviewed: reviewed UA I have reviewed the previous health record information and history for this patient from . I have reviewed and verified the staff HPI to be accurate for this encounter. There have been no associated fever, chills, flank pain, or blood in the urine. Denies any urinary infections since last encounter. Review of Systems PHQ Score Initial Depression Screen Score: 0 ROS - Provider Constitutional: denies weight loss, denies hot flashes. Eyes: denies eye problems. Gastrointestinal: denies nausea, denies vomiting. Cardiovascular: denies chest pain or angina. Integumentary: no dryness Musculoskeletal: denies musculoskeletal symptoms. ENMT: denies otolaryngeal symptoms. Respiratory: no shortness of breath. Heme/Lymph: denies easy bleeding tendency, denies easy bruising tendency. Psychiatric: no confusion, no anxiety. Genitourinary: See HPI. Physical Exam Vitals & Measurements HR: 77(Peripheral) BP: 136/85 HT: 77 in HT: 195 cm WT: 110 kg WT: 242 lb BMI: 28.93 General Appearance: alert, no distress, well nourished, well developed male. Assessment/Plan 1. Elevated PSA (R97.20: Elevated prostate specific antigen [PSA]) PSA: 12/13/18 - 3.89 06/07/20 - 4.64 01/07/21 - 3.90 & 15% 01/30/22 - 4.88 02/02/23 - 5.30 & 15% 07/06/23 - 5.00 & 19% Advised pt that the outlet procedures would not increase the risks of prostate cancer. Advised pt that the procedure would possibly make the PSA go down, just from removing tissue from the prostate, but this does not lower the chances of prostate cancer. 2. Urinary retention (R33.9: Retention of urine, unspecified) PVR on 07/14/23 was 310 cc. S/p Cysto 08/04/23 - prostate was obstructing, measures about 4cm long with lateral lobe hypertrophy and a moderately high riding bladder neck, universal protrusion of the prostate into the bladder lumen and the prostate in that location was quite vascular, the rest of the bladder demonstrates grade 3 trabeculation Discussed the risks and benefits of Rezum and Urolift. Literature given today. Counseled pt on the risks of bleeding per procedure. Advised pt that he will need to hold the Eliquis for about 1 week total for the outlet procedure. inquired if the whole prostate could be removed. Counseled pt and on the reasoning behind not having a radical prostatectomy. Counseled pt on the risk of having to have a second procedure. Pt states that he would like to get the Rezum done. -Will schedule Rezum. The procedural risks, benefits, details, and treatment alternatives have been discussed with the patient. These include bleeding, infection, continued problems urinating, increased frequency with urgency during the healing process, painful urination, need for indwelling catheter after the procedure, and the need for additional procedures in the future, among others. The risk of penile erection problems and urinary leakage is less after this procedure than some others, but could still occur. Full informed consent has been obtained. Will order Local anesthesia. -Will send Cipro, Valium, Ultracet and Oxybutynin to pharm on file. Discussed the medication side effects, and the patient will monitor closely for these, as well as for symptom improvement. If severe side effects occur, the medication should be stopped and the office notified. Pt will need a cpr ambulance driver. 3. BPH with obstruction/lower urinary tract symptoms (N40.1: Benign prostatic hyperplasia with lower urinary tract symptoms) UA today shows trace-intact blood. IPSS 9(8). -See #2 4. History of kidney stones (Z87.442: Personal history of urinary calculi) KUB 02/02/23 - Neg for stones 5. Anticoagulated (Z79.01: alf (current) use of anticoagulants) Eliquis. Knows that being off this medication for about 1 week leads to about a 0.1% chance of having a CVA given the atrial fibrillation. This also comes into play when the discussing the various procedural intervention. Would like to avoid a prostate resection given the long h (more content not included)... Normal [facility] Comment on above: Result Comment: Elec tronically Signed By: Danny HORNER MD\.br\Date and Time Signed: 09/09/23 17:36 EDT\.br\Electronically Co-Signed By: Selene Mcgraw\.br\Date and Time Co-Signed: 09/08/23 14:54 EDT Ambulatory Visit Summaryon 1 Ambulatory Visit Summary ALINE TOMLIN :1950 Visit Date:09/08/2023 Ambulatory Visit Instructions Your Diagnosis Elevated PSA Urinary retention BPH with obstruction/lower urinary tract symptoms History of kidney stones Anticoagulated Tests Performed Urnls Dip Stick Auto w/o Microscopy POC 09993 Your Care Team Attending Physician - Danny HORNER MD Primary Care Physician - PATTI THOMAS DO This Is Your Medications List Contact prescribing physician if questions or concerns amlodipine (amLODIPine 10 mg Tab) apixaban (Eliquis 5 mg oral tablet) fosinopril (fosinopril 40 mg Tab) metformin metoprolol (metoprolol 50 mg ER Tab) metronidazole (MetroNIDAZOLE 500 mg Tab) omeprazole (omeprazole 20 mg Cap-DR) potassium chloride (Klor-Con) potassium chloride (potassium chloride 20 mEq ER Tab) simvastatin (simvastatin 40 mg Tab) triamcinolone Procedures Performed Cystoscopic removal of ureteric stent (07/25/2019), Cysto w/ homium laser (07/14/2019), ESWL of kidney (06/03/2019), Ureteral stent-placement set (05/18/2019), Cystoscopy, excision of skin cancers, Tonsillectomy. Discharge Vitals Heart Rate (Peripheral) 77 Blood Pressure 136/85 Height 195 cm Height 77 in Weight 110 kg Weight 242 lb BMI 28.93 What to do next Scheduled Follow-Up Appointments Thursday. 2023 9:45 AM EST With: Danny HORNER MD Where: [facility] Patient Educationon 09-08-20 23 Patient Education Urology Benign Prostatic Hyperplasia Benign prostatic hyperplasia (BPH) is an enlarged prostate gland that is caused by the normal aging process. The prostate may get bigger as a man gets older. The condition is not caused by cancer. The prostate is a walnut-sized gland that is involved in the production of semen. It is located in front of the rectum and below the bladder. The bladder stores urine. The urethra carries stored urine out of the body. An enlarged prostate can press on the urethra. This can make it harder to pass urine. The buildup of urine in the bladder can cause infection. Back pressure and infection may progress to bladder damage and kidney (renal) failure. What are the causes? This condition is part of the normal aging process. However, not all men develop problems from this condition. If the prostate enlarges away from the urethra, urine flow will not be blocked. If it enlarges toward the urethra and compresses it, there will be problems passing urine. What increases the risk? This condition is more likely to develop in men older than 50 years. What are the signs or symptoms? Symptoms of this condition include: ? Getting up often during the night to urinate. ? Needing to urinate frequently during the day. ? Difficulty starting urine flow. ? Decrease in size and strength of your urine stream. ? Leaking (dribbling) after urinating. ? Inability to pass urine. This needs immediate treatment. ? Inability to completely empty your bladder. ? Pain when you pass urine. This is more common if there is also an infection. ? Urinary tract infection (UTI). How is this diagnosed? This condition is diagnosed based on your medical history, a physical exam, and your symptoms. Tests will also be done, such as: ? A post-void bladder scan. This measures any amount of urine that may remain in your bladder after you finish urinating. ? A digital rectal exam. In a rectal exam, your health care provider checks your prostate by putting a lubricated, gloved finger into your rectum to feel the back of your prostate gland. This exam detects the size of your gland and any abnormal lumps or growths. ? An exam of your urine (urinalysis). ? A prostate specific antigen (PSA) screening. This is a blood test used to screen for prostate cancer. ? An ultrasound. This test uses sound waves to electronically produce a picture of your prostate gland. Your health care provider may refer you to a specialist in kidney and prostate diseases (urologist). How is this treated? Once symptoms begin, your health care provider will monitor your condition (active surveillance or watchful waiting). Treatment for this condition will depend on the severity of your condition. Treatment may include: ? Observation and yearly exams. This may be the only treatment needed if your condition and symptoms are mild. ? Medicines to relieve your symptoms, including: ? Medicines to shrink the prostate. ? Medicines to relax the muscle of the prostate. ? Surgery in severe cases. Surgery may include: ? Prostatectomy. In this procedure, the prostate tissue is removed completely through an open incision or with a laparoscope or robotics. ? Transurethral resection of the prostate (TURP). In this procedure, a tool is inserted through the opening at the tip of the penis (urethra). It is used to cut away tissue of the inner core of the prostate. The pieces are removed through the same opening of the penis. This removes the blockage. ? Transurethral incision (TUIP). In this procedure, small cuts are made in the prostate. This lessens the prostate's pressure on the urethra. ? Transurethral microwave thermotherapy (TUMT). This procedure uses microwaves to create heat. The heat destroys and removes a small amount of prostate tissue. ? Transurethral needle ablation (TUNA). This procedure uses radio frequencies to destroy and remove a small amount of prostate tissue. ? Interstitial laser coagulation (ILC). This procedure uses a laser to destroy and remove a small amount of prostate tissue. ? Transurethral electrovaporization (TUVP). This procedure uses electrodes to destroy and remove a small amount of prostate tissue. ? Prostatic urethral lift. This procedure inserts an implant to push the lobes of the prostate away from the urethra. Follow these instructions at home: ? Take ftnd-kth-olqdtld and prescription medicines only as told by your health care provider. ? Monitor your symptoms for any changes. Contact your health care provider with any changes. ? Avoid drinking large amounts of liquid before going to bed or out in public. ? Avoid or reduce how much caffeine or alcohol you drink. ? Give yourself time when you urinate. ? Keep all follow-up visits. This is important. Contact a health care provider if: ? You have unexplained back pain. ? Your symptoms do not get better with treatment. ? You develop side effects from the medicine (more content not included)... Normal [facility] Operative Reporton 3 Operative Report [id number] 0CD:127 Normal [facility] Screenson 07-15-2023 Screens [id number] #1.00CD:127 [facility] Ambulatory Visit Summaryon 0 07-14-2023 Ambulatory Visit Summary ALINE TOMLIN :1950 Visit Date:07/14/2023 Ambulatory Visit Instructions Your Diagnosis Elevated PSA Urinary retention BPH with obstruction/lower urinary tract symptoms History of kidney stones Tests Performed Urnls Dip Stick Auto w/o Microscopy POC 75634 Your Care Team Attending Physician - Danny HORNER MD Primary Care Physician - PATTI THOMAS DO This Is Your Medications List Contact prescribing physician if questions or concerns amlodipine (amLODIPine 10 mg Tab) apixaban (Eliquis 5 mg oral tablet) fosinopril (fosinopril 40 mg Tab) metformin metoprolol (metoprolol 50 mg ER Tab) metronidazole (MetroNIDAZOLE 500 mg Tab) omeprazole (omeprazole 20 mg Cap-DR) potassium chloride (Klor-Con) potassium chloride (potassium chloride 20 mEq ER Tab) simvastatin (simvastatin 40 mg Tab) triamcinolone Procedures Performed Cystoscopic removal of ureteric stent (07/25/2019), Cysto w/ homium laser (07/14/2019), ESWL of kidney (06/03/2019), Ureteral stent-placement set (05/18/2019), Cystoscopy, excision of skin cancers, Tonsillectomy. Discharge Vitals Temperature (Temporal Artery) 36.2 ?C Heart Rate (Peripheral) 60 Blood Pressure 159/77 Height 195 cm Height 77 in Weight 110.2 kg Weight 242.44 lb BMI 28.98 What to do next You Need to Schedule the Following Appointments Follow Up with Danny HORNER MD, URL When: Where: [address] [place] [address] [place] [id number]- Medications What How Much When Instructions Unchanged amlodipine (amLODIPine 10 mg Tab) 1 Tablets By Mouth Every day Contact prescribing physician if questions or concerns Unchanged apixaban (Eliquis 5 mg oral tablet) 1 Tablets By Mouth Contact prescribing physician if questions or concerns Unchanged fosinopril (fosinopril 40 mg Tab) 1 Tablets By Mouth Every day Contact prescribing physician if questions or concerns Unchanged metformin 500 Milligram By Mouth 2 times a day Contact prescribing physician if questions or concerns Unchanged metoprolol (metoprolol 50 mg ER Tab) By Mouth Every day Contact prescribing physician if questions or concerns Unchanged metronidazole (MetroNIDAZOLE 500 mg Tab) 1 Tablets By Mouth 3 times a day Contact prescribing physician if questions or concerns Unchanged omeprazole (omeprazole 20 mg Cap-DR) By Mouth Every day Contact prescribing physician if questions or concerns Unchanged potassium chloride (Klor-Con) By Mouth Contact prescribing physician if questions or concerns Unchanged potassium chloride (potassium chloride 20 mEq ER Tab) 1 Tablets By Mouth 3 times a day Contact prescribing physician if questions or concerns Unchanged simvastatin (simvastatin 40 mg Tab) 1 Tablets By Mouth Once a day (at bedtime) Contact prescribing physician if questions or concerns Unchanged triamcinolone Once Contact prescribing physician if questions or concerns Test Results Urnls Dip Stick Auto w/o Microscopy POC 32029 (07/14/2023) Bilirubin Urine Dipstick - Negative Blood Urine Dipstick - Negative Glucose Urine Dipstick - Negative Ketones Urine Dipstick - Negative Leukocytes Urine Dipstick - Negative Nitrite Urine Dipstick - Negative Protein Urine Dipstick - Negative Specific Edna Urine Dipstick - 1.015 Urine Appearance Urine Dipstick - Clear Urine Color Urine Dipstick - Yellow Urobilinogen Urine Dipstick - Normal 0.2-1 EU/dl pH Urine Dipstick - 7 Allergies Tape (rash) hydroCHLOROthiazide (unknown) penicillins (Rash, Moderate) Problems Ongoing - Any problem that you are currently receiving treatment for. Anticoagulated Bladder wall thickening BMI 28.0-28.9,adult BPH with obstruction/lower urinary tract symptoms Elevated PSA Frequent urination History of kidney stones Kidney stone Microscopic hematuria Nocturia Retained ureteral stent Urinary retention Urinary urgency Historical - Any problem that you are no longer receiving treatment for. Cancer of skin DM - Diabetes mellitus Hypertension Education Materials Cystoscopy Cystoscopy is a procedure that is used to help diagnose and sometimes treat conditions that affect the lower urinary tract. The lower urinary tract includes the bladder and the urethra. The urethra is the tube that drains urine from the bladder. Cystoscopy is done using a thin, tube-shaped instrument with a light and camera at the end (cystoscope). The cystoscope may be hard or flexible, depending on the goal of the procedure. The cystoscope is inserted through the urethra, into the bladder. Cystoscopy may be recommended if you have: ? Urinary tract infections that keep coming back. ? Blood in the urine (hematuria). ? An inability to control when you urinate (urinary incontinence) or an overactive bladder. ? Unusual cells found in a urine sample. ? A blockage in the urethra, such as a urinary stone. ? Painful urinati (more content not included)... Normal [facility] Urology Office/Clinic Noteon 07-14-2023 Urology Office/Clinic Note Chief Complaint 4 month follow up w/ PSA HPI Staff 4 month follow up w/PSA. Previous DX: BPH w/LUTS, elevated PSA, HX of kidney stones. S/P ESWL done 06/03/19. Current PSA 5.0 and 18.6% done 07/06/23, previously 5.3 and 15.1% on 02/02/23. IPSS SCORE 8. PVR today 310ml. Dysuria: denies pain and burning Incomplete bladder emptying: sometimes Hematuria: denies visible blood Frequency: 10x a day Urgency: denies Nocturia: once a night Stream: denies hesitancy, strong stream Leaking: denies Post void dripping: denies Wearing pads/ Depends: denies Urge incontinence: once in a while Stress incontinence: denies Incontinence without Sensory Awareness: denies Abdominal pain: denies Flank pain: once in a while Rt sided pain History of Present Illness Tests reviewed: reviewed UA, PSA, PVR I have reviewed the previous health record information and history for this patient from Dr. Horner. I have reviewed and verified the staff HPI to be accurate for this encounter. There have been no associated fever, chills, flank pain, or blood in the urine. Denies any urinary infections since last encounter. Review of Systems PHQ Score Initial Depression Screen Score: 0 ROS - Provider Constitutional: denies weight loss, denies hot flashes. Eyes: denies eye problems. Gastrointestinal: denies nausea, denies vomiting. Cardiovascular: denies chest pain or angina. Integumentary: no dryness Musculoskeletal: denies musculoskeletal symptoms. ENMT: denies otolaryngeal symptoms. Respiratory: no shortness of breath. Heme/Lymph: denies easy bleeding tendency, denies easy bruising tendency. Psychiatric: no confusion, no anxiety. Genitourinary: See HPI. Physical Exam Vitals & Measurements T: 36.2 ?C(Temporal Artery) HR: 60(Peripheral) BP: 159/77 HT: 77 in HT: 195 cm WT: 110.2 kg WT: 242.44 lb BMI: 28.98 General Appearance: alert, no distress, well nourished, well developed male. Assessment/Plan Pt here with his today. 1. Elevated PSA (R97.20: Elevated prostate specific antigen [PSA]) PSA: 12/13/18 - 3.89 06/07/20 - 4.64 01/07/21 - 3.90 & 15% 01/30/22 - 4.88 02/02/23 - 5.30 & 15% 07/06/23 - 5.00 & 19% PSA remains stable. Good percent free. Will cont to monitor. Bx not currently indicated. Follow up 6 mos with PSA FT or sooner if needed. Pt understands and agrees with plan. 2. Urinary retention (R33.9: Retention of urine, unspecified) PVR today 310 cc. I would expect pt's IPSS score to be worse with this degree of retention. States he sometimes has to push and will get a little more out. Educated pt on risks of urinary retention including worsening to total loss of bladder fxn. Possible etiologies of urinary retention including BERRY discussed. Will schedule cysto. The risks and benefits for cystoscopy have been discussed. The risks include bleeding, infection, and irritation of the bladder and urinary channel, among others. The patient, after being informed of procedural details and after questions have been answered, wishes to proceed. Full informed consent has been obtained. Will order Local anesthesia. Prophylactic abx sent to [facility]. 3. BPH with obstruction/lower urinary tract symptoms (N40.1: Benign prostatic hyperplasia with lower urinary tract symptoms) UA today negative for blood and infection. IPSS 8 (5). 4. History of kidney stones (Z87.442: Personal history of urinary calculi) KUB 02/02/23 - Neg for stones. The patient has the PSA levels as noted above. He is actually decreased a bit since last visit down to 5.0 with an intermediate free percent. We then had a long discussion about the fact that he has documented urinary retention despite only scoring an 8 on his IPSS score sheet. Due to the retention, it is my recommendation to perform cystoscopic evaluation to to evaluate both the bladder outlet and the bladder itself. We discussed that he can have ongoing urinary bladder damage in the face of significant obstruction despite a lack of significant symptoms. He agrees with the plan. Follow-up With When Contact Information SIRI COLORADODanny, URL [address] [address]- Additional Instructions: schedule cysto Patient Education Cystoscopy I, Benita Brown, personally scribed for Dr. Horner on 07/14/2023 12:07:01. . Documentation recorded by the scribe, Benita Brown, accurately reflects the services(s) I performed and decisions made by me. Authenticated by Dr. Horner on 07/14/2023 12:13:25. Portions of this record may have been created with voice recognition artificial intelligence software, specifically [employer] and or [employer]. Substitutions may have occurred due to the inherent limitations of voice recognition and artificial intelligence software. Problem List/Past Medical History Ongoing Anticoagulated Bladder wall thicken (more content not included)... Normal [facility] Comment on above: Result Comment: Elec tronically Signed By: Danny HORNER MD\.br\Date and Time Signed: 07/14/23 12:15 EDT\.br\Electronically Co-Signed By: Benita Brown\.br\Date and Time Co-Signed: 07/14/23 12:07 EDT Lab Reportson 07-07-2023 Lab Reports [id number] 00CD:127 Normal [facility] 36on 05-14-2023 36 Spoke w/ pt's about being due for DOAC labs and she states that [facility] and [facility] are also monitoring him with regular blood draws and no longer need to follow with [facility]. Will resolve episode. Normal [facility] Telephoneon 05-14-2023 Telephone [id number] Aline Tomlin 1950 M Date Provider Department Center 05/14/2023 MADELAINE BOYER [facility] [place] [facility] Family History Problem Relation Age of Onset Other Father Family Status - Relation Status Age at Father Reason for Visit and Comments: Anticoagulation [8] Normal [facility] Office Visiton 04-28-2023 Follow-up visit [id number] Aline Tomlin 1950 M Date Provider Department Center 04/28/2023 Monica-TEN ECKERT THO [place] Family History Problem Relation Age of Onset Other Father Family Status - Relation Status Age at Father Level of Service:[id number] ID OFFICE/OUTPATIENT ESTABLISHED MOD MDM 30-39 MIN Reason for Visit and Comments: Follow-up [[id number]] - 6 month follow up Normal [facility] Screenson 02-26-2023 Screens [id number]:127 Normal [facility] Ambulatory Visit Summaryon 0 02-25-2023 Ambulatory Visit Summary ALINE TOMLIN :1950 Visit Date:02/25/2023 Ambulatory Visit Instructions Your Diagnosis BPH with obstruction/lower urinary tract symptoms Elevated PSA History of kidney stones Tests Performed Urnls Dip Stick Auto w/o Microscopy POC 65541 Your Care Team Attending Physician - Danny HORNER MD Primary Care Physician - PATTI THOMAS DO This Is Your Medications List Contact prescribing physician if questions or concerns amlodipine (amLODIPine 10 mg Tab) apixaban (Eliquis 5 mg oral tablet) aspirin (aspirin 81 mg oral tablet) ciprofloxacin (Cipro 500 mg Tab) flecainide (flecainide 100 mg Tab) fosinopril (fosinopril 40 mg Tab) metformin metoprolol (metoprolol 50 mg ER Tab) metronidazole (MetroNIDAZOLE 500 mg Tab) potassium chloride (Klor-Con) potassium chloride (potassium chloride 20 mEq ER Tab) simvastatin (simvastatin 40 mg Tab) Procedures Performed Cystoscopic removal of ureteric stent (07/25/2019), Cysto w/ homium laser (07/14/2019), ESWL of kidney (06/03/2019), Ureteral stent-placement set (05/18/2019), Cystoscopy, excision of skin cancers, Tonsillectomy. Discharge Vitals Height 195 cm Height 77 in Weight 110.2 kg Weight 242.44 lb BMI 28.98 What to do next Scheduled Follow-Up Appointments Thursday 10:15 AM EDT With: Danny HORNER MD Where: [facility] Adan Riley [facility] Patient Educationon 02-26-20 Patient Education Oncology Prostate Cancer Screening Prostate cancer screening is testing that is done to check for the presence of prostate cancer in men. The prostate gland is a walnut-sized gland that is located below the bladder and in front of the rectum in males. The function of the prostate is to add fluid to semen during ejaculation. Prostate cancer is one of the most common types of cancer in men. Who should have prostate cancer screening? Screening recommendations vary based on age and other risk factors, as well as between the professional organizations who make the recommendations. In general, screening is recommended if: ? You are age 50 to 70 and have an average risk for prostate cancer. You should talk with your health care provider about your need for screening and how often screening should be done. Because most prostate cancers are slow growing and will not cause , screening in this age group is generally reserved for men who have a 10- to 15-year life expectancy. ? You are younger than age 50, and you have these risk factors: ? Having a father, brother, or uncle who has been diagnosed with prostate cancer. The risk is higher if your family member's cancer occurred at an early age or if you have multiple family members with prostate cancer at an early age. ? Being a male who is Black or is of [place] or sub-Saharan descent. In general, screening is not recommended if: ? You are younger than age 40. ? You are between the ages of 40 and 49 and you have no risk factors. ? You are 70 years of age or older. At this age, the risks that screening can cause are greater than the benefits that it may provide. If you are at high risk for prostate cancer, your health care provider may recommend that you have screenings more often or that you start screening at a younger age. How is screening for prostate cancer done? The recommended prostate cancer screening test is a blood test called the prostate-specific antigen (PSA) test. PSA is a protein that is made in the prostate. As you age, your prostate naturally produces more PSA. Abnormally high PSA levels may be caused by: ? Prostate cancer. ? An enlarged prostate that is not caused by cancer (benign prostatic hyperplasia, or BPH). This condition is very common in older men. ? A prostate gland infection (prostatitis) or urinary tract infection. ? Certain medicines such as male hormones (like testosterone) or other medicines that raise testosterone levels. A rectal exam may be done as part of prostate cancer screening to help provide information about the size of your prostate gland. When a rectal exam is performed, it should be done after the PSA level is drawn to avoid any effect on the results. Depending on the PSA results, you may need more tests, such as: ? A physical exam to check the size of your prostate gland, if not done as part of screening. ? Blood and imaging tests. ? A procedure to remove tissue samples from your prostate gland for testing (biopsy). This is the only way to know for certain if you have prostate cancer. What are the benefits of prostate cancer screening? ? Screening can help to identify cancer at an early stage, before symptoms start and when the cancer can be treated more easily. ? There is a small chance that screening may lower your risk of dying from prostate cancer. The chance is small because prostate cancer is a slow-growing cancer, and most men with prostate cancer from a different cause. What are the risks of prostate cancer screening? The main risk of prostate cancer screening is diagnosing and treating prostate cancer that would never have caused any symptoms or problems. This is called overdiagnosisand overtreatment. PSA screening cannot tell you if your PSA is high due to cancer or a different cause. A prostate biopsy is the only procedure to diagnose prostate cancer. Even the results of a biopsy may not tell you if your cancer needs to be treated. Slow-growing prostate cancer may not need any treatment other than monitoring, so diagnosing and treating it may cause unnecessary stress or other side effects. Questions to ask your health care provider ? When should I start prostate cancer screening? ? What is my risk for prostate cancer? ? How often do I need screening? ? What type of screening tests do I need? ? How do I get my test results? ? What do my results mean? ? Do I need treatment? Where to find more information ? The [employer]: www.cancer.org ? [employer]: www.auanet.org Contact a health care provider if: ? You have difficulty urinating. ? You have pain when you urinate or ejaculate. ? You have blood in your urine or semen. ? You have pain in your back or in the area of your prostate. Summary ? Prostate cancer is a common type of cancer in men. The prostate gland is located below the bladder and in front of the rectum. This gland adds flu (more content not included)... Normal [facility] Urology Office/Clinic Noteon 02-25-2023 Urology Office/Clinic Note Chief Complaint 1 year with PSA and KUB HPI Staff 72 year old male here for 1 year follow up with psa and kub Previous Dx: Bph with luts, elevated psa, Hx of kidney stones PSA 5.3 and 15.1% done 02/02/23, previous PSA 4.88 done 01/29/22 KUB done 02/02/23 Dysuria:no Incomplete bladder emptying: no Hematuria:no Frequency:no Urgency:mild Nocturia:1-2x's Stream:good stream Leaking: Post void dripping:no Wearing pads/ Depends:no Urge incontinence:occasion ally Stress incontinence:no Incontinence without Sensory Awareness:no Abdominal pain:no Flank pain:no History of Present Illness Tests reviewed: Reviewed UA, KUB, and PSA. I have reviewed the previous health record information and history for this patient from Dr. Horner. I have reviewed and verified the staff HPI to be accurate for this encounter. There have been no associated fever, chills, flank pain, or blood in the urine. Denies any urinary infections since last encounter. Review of Systems PHQ Score Initial Depression Screen Score: 0 ROS - Provider Constitutional: denies weight loss, denies hot flashes. Eyes: denies eye problems. Gastrointestinal: denies nausea, denies vomiting. Cardiovascular: denies chest pain or angina. Integumentary: no dryness Musculoskeletal: denies musculoskeletal symptoms. ENMT: denies otolaryngeal symptoms. Respiratory: no shortness of breath. Heme/Lymph: denies easy bleeding tendency, denies easy bruising tendency. Psychiatric: no confusion, no anxiety. Genitourinary: See HPI. Physical Exam Vitals & Measurements HT: 77 in HT: 195 cm WT: 110.2 kg WT: 242.44 lb BMI: 28.98 General Appearance: alert, no distress, well nourished, well developed male. Genitourinary: normal scrotum, normal testes, normal urethra, normal epididymis, normal vas deferens/spermatic cord. Flank Pain: none. Bladder: nonpalpable. Prostate: normal prostate, estimated weight 40 gms, no hard nodule observed. Assessment/Plan 1. BPH with obstruction/lower urinary tract symptoms (N40.1: Benign prostatic hyperplasia with lower urinary tract symptoms) Patient is not currently on any prostate medications. IPSS 5 - mild symptoms. No bothersome urinary complaints. UA today neg. 2. Elevated PSA (R97.20: Elevated prostate specific antigen [PSA]) PSA 12/13/18 - 3.89 06/07/20 - 4.64 01/07/21 - 3.9 & 15.1% 01/30/22 - 4.88 02/02/23 - 5.3 & 15.1% Discussed moving forward with prostate MRI due to increase vs. continued surveillance due to fluctuation over the years. AYLEEN - 40 gms, no hard nodules palpated. I advised continued surveillance with repeat PSA F/T in 4 months. MRI would be the next step if next PSA value has increased. All questions/concerns were discussed. Pt. to call the office if heencounters any issues prior. Pt. acknowledges understanding. 3. History of kidney stones (Z87.442: Personal history of urinary calculi) KUB 02/02/23 negative for any obvious stones. Denies pain or passage of stones since last encounter. Patient does have a fluctuating PSA but is now up to a level of 5.3. The free percent is in the middle range. He knows that prostate cancer presents is a possibility. We did offer both MRI versus close follow-up and he is chosen the latter. He knows if the PSA continues to increase imaging will be the next step as outlined above. Both the patient and his are in agreement with that plan. Follow-up With When Contact Information [place], Danny Simon, URL [address] [facility] [address] [place] [id number] Additional Instructions: 4 months w/ PSA F/T Patient Education Prostate Cancer Screening I, Stacy Medeiros, personally scribed for Dr. Horner on 02/25/2023 14:24:41. . Documentation recorded by the scribe, Stacy Medeiros, accurately reflects the services(s) I performed and decisions made by me. Authenticated by Dr. Horner on 02/25/2023 16:43:31. Problem List/Past Medical History Ongoing Anticoagulated Bladder wall thickening BMI 28.0-28.9,adult BPH with obstruction/lower urinary tract symptoms Elevated PSA Frequent urination History of kidney stones Kidney stone Microscopic hematuria Nocturia Retained ureteral stent Urinary urgency Historical Cancer of skin DM - Diabetes mellitus Hypertension Procedure/Surgical History Cystoscopic removal of ureteric stent (07/25/2019), Cysto w/ homium laser (07/14/2019), ESWL of kidney (06/03/2019), Ureteral stent-placement set (05/18/2019), Cystoscopy, excision of skin cancers, Tonsillectomy. Medications amLODIPine 10 mg Tab, 10 mg= 1 tab(s), Oral, Daily aspirin 81 mg oral tablet, Oral, Daily Cipro 500 mg Tab, 500 mg= 1 tab(s), Oral, q12hr, Not taking Eliquis 5 mg oral tablet, 5 mg= 1 tab(s), Oral flecainide 100 mg Tab, 100 mg= 1 tab(s), Oral fosinopril 40 mg Tab, 40 mg= 1 tab(s), Oral, Daily Klor-Con, Oral metformin, 500 mg, Oral, BID m (more content not included)... Normal [facility] Comment on above: Result Comment: Elec tronically Signed By: Danny HORNER MD\.br\Date and Time Signed: 02/25/23 16:45 EDT\.br\Electronically Co-Signed By: Stacy Medeiros.br\Date and Time Co-Signed: 02/25/23 14:25 EDT Lab Reportson 02-16-2023 Lab Reports [id number] .[id number]:127 Normal [facility] RAD - MISCon 02-16-2023 RAD - MISC [id number] .[id number]:127 Normal [facility] PSA, FREE AND TOTAL RATIOon 02-03-2023 % Free PSA 15.1 % Normal [facility] Comment on above: Result Comment: The table below lists the probability of prostate cancer for men with non-suspicious AYLEEN results and total PSA between 4 and 10 ng/mL, by patient age (Praful et al, CRYSTAL 1998, 279:1542). % Free PSA 50-64 yr 65-75 yr 0.00-10.00% 56% 55% 10.01-15.00% 24% 35% 15.01-20.00% 17% 23% 20.01-25.00% 10% 20% >25.00% 5% 9% Please note: Praful et al did not make specific recommendations regarding the use of percent free PSA for any other population of men. Performed By: #### P SAFREE #### [facility] [address] [address] [address] Manuel Callejas Prostate specific Ag [Mass/Vol] 5.3 ng/mL Critically high 0.0-4.0 [facility] Comment on above: Result Comment: Robert BRIONES methodology. . According to the [employer], Serum PSA should decrease and remain at undetectable levels after radical prostatectomy. The AUA defines biochemical recurrence as an initial PSA value 0.2 ng/mL or greater followed by a subsequent confirmatory PSA value 0.2 ng/mL or greater. Values obtained with different assay methods or kits cannot be used interchangeably. Results cannot be interpreted as absolute evidence of the presence or absence of malignant disease. Performed By: #### P SAFREE #### [facility] [address] [place], [place] [address] Dr. Manuel Callejas PSA, Free 0.80 ng/mL Normal N/A [facility] Comment on above: Result Comment: Robert salas ECLDONTA methodology. Performed By: #### P SAFREE #### [facility] [address] [place], [place] [address] Dr. Manuel Callejas XR KUB 1 VIEWon 02-02-2023 XR KUB 1 VIEW EXAMINATION: XR KUB 1 VIEW HISTORY: Kidney stone COMPARISON: No relevant comparison available. FINDINGS: KIDNEY/URETER - RIGHT: No visible renal or ureteral calcifications. KIDNEY/URETER - LEFT: No visible renal or ureteral calcifications. PELVIS: No visible ureteral stones. Stable left pelvic calcification consistent with a phlebolith. BOWEL: No abnormal dilation or deviation. BONES: No acute abnormality. OTHER: Negative. No abnormal gaseous collections. IMPRESSION: 1. No visible urinary tract calculi. Electronically authenticated by: RONALDO OROPEZA Date: 2023-02-02 10:53 Normal [facility] Telephoneon 11-17-2022 Telephone [id number] Aline Tomlin 1950 M Date Provider Department Center 11/17/2022 ElizabethWESLEY FARRELL [facility] Family History Problem Relation Age of Onset Other Father Family Status - Relation Status Age at Father Reason for Visit and Comments: Anticoagulation [8] - Annual review Normal [facility] Office Visiton 11-05-2022 Follow-up visit [id number] Aline Tomlin 1950 M Date Provider Department Center 11/05/2022 CASSANDRA NORWOOD [facility] Family History Problem Relation Age of Onset Other Father Family Status - Relation Status Age at Father Level of Service:01775 ID OFFICE/OUTPATIENT ESTABLISHED LOW MDM 20-29 MIN Reason for Visit and Comments: Atrial Fibrillation [80] Hypertension [839091] Hyperlipidemia [182] Normal [facility] MICROALBUMIN/ CREATININE RAT IOon 07-09-2022 Albumin, Urine 12.2 ug/mL Normal Not Estab. [facility] Comment on above: Performed By: #### M ALBCRL #### [facility] [address] [address] [address] Manuel Callejas Albumin/ Creatinine Ratio 23 mg/g creat Normal 0-29 [facility] Comment on above: Result Comment: Norm al: 0 - 29 Moderately increased: 30 - 300 Severely increased: >300 Performed By: #### M ALBCRL #### [facility] [address] [address] [address] Manuel Callejas Creatinine, Urine 52.2 mg/dL Normal Not Estab. [facility] Comment on above: Performed By: #### M ALBCRL #### [facility] [address] [address] [address] Manuel Callejas CBC AUTO DIFFon 07-08-2022 BASO # 0.1 103/ul Normal 0.0-0.1 [facility] Comment on above: Performed By: #### C BC #### [facility] [address] [address] [address] Manuel Callejas Basophils/100 WBC (Bld) 0.9 % Normal 0.2-2.0 [facility] Comment on above: Performed By: #### C BC #### [facility] [address] [address] [address] Manuel Callejas EO # 0.1 103/ul Normal 0.0-0.7 [facility] Comment on above: Performed By: #### C BC #### [facility] [address] [address] [address] Manuel Callejas Eosinophils/100 WBC (Bld) 2.1 % Normal 0.9-7.0 [facility] Comment on above: Performed By: #### C BC #### [facility] [address] [place] [address] Dr. Manuel Callejas Erythrocyte distribution width (RBC) [Ratio] 12.1 % Normal 11.0-15.0 [facility] Comment on above: Performed By: #### C BC #### [facility] [address] [place] [address] Dr. Manuel Callejas Hematocrit (Bld) [Volume fraction] 38.1 % Critically low 42.0-54.0 [facility] Comment on above: Performed By: #### C BC #### [facility] [address] [place] [address] Dr. Manuel Callejas Hemoglobin (Bld) [Mass/Vol] 13.1 g/dL Critically low 14.0-18.0 [facility] Comment on above: Performed By: #### C BC #### [facility] [address] [place] [address] Dr. Manuel Callejas IG # 0.01 10e3/ul Normal 0.00-0.03 [facility] Comment on above: Performed By: #### C BC #### [facility] [address] [address] [address] Manuel Callejas IG % 0.2 % Normal 0.0-0.5 [facility] Comment on above: Performed By: #### C BC #### [facility] [address] [place] [address] Dr. Manuel Callejas LYMPH # 1.9 103/ul Normal 1.2-3.8 [facility] Comment on above: Performed By: #### C BC #### [facility] [address] [place] [address] Dr. Manuel Callejas Lymphocytes/100 WBC (Bld) 32.3 % Normal 20.5-60.0 [facility] Comment on above: Performed By: #### C BC #### [facility] [address] [place] [address] Dr. Manuel Callejas MANUAL DIFF REQ NO Normal [facility] Comment on above: Performed By: #### C BC #### [facility] [address] [place] [address] Dr. Manuel Callejas MCH (RBC) [Entitic mass] 31.5 pg Normal 25.9-34.0 [facility] Comment on above: Performed By: #### C BC #### [facility] [address] [place] [address] Dr. Manuel Callejas MCHC (RBC) [Mass/Vol] 34.4 g/dL Normal 29.9-35.2 [facility] Comment on above: Performed By: #### C BC #### [facility] [address] [place] [address] Dr. Manuel Callejas MCV (RBC) [Entitic vol] 91.6 fL Normal 80.0-94.0 [facility] Comment on above: Performed By: #### C BC #### [facility] [address] [place] [address] Dr. Manuel Callejas MONO # 0.6 103/ul Normal 0.3-0.8 [facility] Comment on above: Performed By: #### C BC #### [facility] [address] [place] [address] Dr. Manuel Callejas Monocytes/100 WBC (Bld) 9.8 % Normal 1.7-12.0 [facility] Comment on above: Performed By: #### C BC #### [facility] [address] [place] [address] Dr. Manuel Callejas NEUT # 3.1 103/ul Normal 1.4-6.5 [facility] Comment on above: Performed By: #### C BC #### [facility] [address] [place] [address] Dr. Manuel Callejas Neutrophils/100 WBC (Bld) 54.7 % Normal 43.0-75.0 [facility] Comment on above: Performed By: #### C BC #### [facility] [address] [place] [address] Dr. Manuel Callejas Platelet mean volume (Bld) [Entitic vol] 9.6 fL Normal 9.5-13.5 [facility] Comment on above: Performed By: #### C BC #### [facility] [address] [place] [address] Dr. Manuel Callejas PLT 189 103/ul Normal 150-450 [facility] Comment on above: Performed By: #### C BC #### [facility] [address] [place] [address] Dr. Manuel Callejas RBC 4.16 106/ul Critically low 4.70-6.10 [facility] Comment on above: Performed By: #### C BC #### [facility] [address] [place] [address] Dr. Manuel Callejas WBC 5.7 103/ul Normal 4.0-11.0 [facility] Comment on above: Performed By: #### C BC #### [facility] [address] [place] [address] Dr. Manuel Callejas GLYCOHEMOGLOBIN A1Con 2021 ADA RECOMMENDATION SEE BELOW Normal [facility] Comment on above: Result Comment: ADA RECOMMENDED LIMIT 4.0 - 6.0 ADA THERAPEUTIC TARGET < 7.0 ACTION SUGGESTED > 7.0 Performed By: #### A 1C #### [facility] [address] [place] [address] Dr. Manuel Callejas Glucose [Mass/Vol] 137 mg/dL Normal [facility] Comment on above: Performed By: #### A 1C #### [facility] [address] [place] [address] Dr. Manuel Callejas HbA1c (Bld) [Mass fraction] 6.4 % Critically high 4.5-6.2 [facility] Comment on above: Performed By: #### A 1C #### [facility] [address] [address] [address] Manuel Callejas LIPID PROFILEon 07-08-2022 CHOL-HDL RATIO NORM SEE BELOW Normal [facility] Comment on above: Result Comment: 3.3 - 4.4 LOW RISK 4.4 - 7.1 AVERAGE RISK 7.1 - 11.0 MODERATE RISK >11.0 HIGH RISK Performed By: #### C MP, LIPID #### [facility] [address] [address] [address] Manuel Callejas Cholesterol [Mass/Vol] 155 mg/dL Normal <=200 [facility] Comment on above: Performed By: #### C MP, LIPID #### [facility] [address] [address] [address] Manuel Callejas Cholesterol in HDL [Mass/Vol] 44 mg/dL Normal 40-60 [facility] Comment on above: Performed By: #### C MP, LIPID #### [facility] [address] [address] [address] Manuel Callejas Cholesterol in LDL [Mass/Vol] 98.2 mg/dL Normal [facility] Comment on above: Performed By: #### C MP, LIPID #### [facility] [address] [address] [address] Manuel Callejas Cholesterol.total /Cholesterol in HDL [Mass ratio] 3.5 {ratio} Normal [facility] Comment on above: Performed By: #### C MP, LIPID #### [facility] [address] [address] [address] Manuel Callejas HDL NORMAL > or = 60 mg/dl - LO W CARDIOVASCULAR RISK <40 mg/dl - HIGH CARDIOVASCULAR RISK Normal [facility] Comment on above: Performed By: #### C MP, LIPID #### [facility] [address] [address] [address] Manuel Callejas LDL CALC NORMAL SEE BELOW Normal [facility] Comment on above: Result Comment: <100 mg/dl OPTIMAL 100 - 129 mg/dl NEAR OR ABOVE OPTIMAL 130 - 159 mg/dl BORDERLINE HIGH 160 - 189 mg/dl HIGH >190 mg/dl VERY HIGH Performed By: #### C MP, LIPID #### [facility] [address] [place] [address] Dr. Manuel Callejas Triglyceride [Mass/Vol] 64 mg/dL Normal <=150 [facility] Comment on above: Performed By: #### C MP, LIPID #### [facility] [address] [place] [address] Dr. Manuel Callejas VLDL CALC 12.8 mg/dL Normal [facility] Comment on above: Performed By: #### C MP, LIPID #### [facility] [address] [place] [address] Dr. Manuel Callejas PROF 14(COMP METB)on 022 Albumin [Mass/Vol] 3.8 g/dL Normal 3.4-5.0 [facility] Comment on above: Performed By: #### C MP, LIPID #### [facility] [address] [place] [address] Dr. Manuel Callejas Albumin/Globulin [Mass ratio] 1.1 {ratio} Normal [facility] Comment on above: Performed By: #### C MP, LIPID #### [facility] [address] [place] [address] Dr. Manuel Callejas ALP [Catalytic activity/Vol] 86 U/L Normal 46-116 [facility] Comment on above: Performed By: #### C MP, LIPID #### [facility] [address] [place] [address] Dr. Manuel Callejas ALT [Catalytic activity/Vol] 26 U/L Normal 16-63 [facility] Comment on above: Performed By: #### C MP, LIPID #### [facility] [address] [place] [address] Dr. Manuel Callejas Anion gap [Moles/Vol] 13.8 mmol/L Normal [facility] Comment on above: Performed By: #### C MP, LIPID #### [facility] [address] [place] [address] Dr. Manuel Callejas AST [Catalytic activity/Vol] 18 U/L Normal 15-37 [facility] Comment on above: Performed By: #### C MP, LIPID #### [facility] [address] [place] [address] Dr. Manuel Callejas Bilirubin [Mass/Vol] 0.6 mg/dL Normal 0.2-1.0 [facility] Comment on above: Performed By: #### C MP, LIPID #### [facility] [address] [place] [address] Dr. Manuel Callejas Calcium [Mass/Vol] 8.8 mg/dL Normal 8.5-10.1 [facility] Comment on above: Performed By: #### C MP, LIPID #### [facility] [address] [place] [address] Dr. Manuel Callejas Chloride [Moles/Vol] 103 mmol/L Normal 98-107 [facility] Comment on above: Performed By: #### C MP, LIPID #### [facility] [address] [place] [address] Dr. Manuel Callejas CO2 [Moles/Vol] 28.9 mmol/L Normal 21.0-32.0 [facility] Comment on above: Performed By: #### C MP, LIPID #### [facility] [address] [place] [address] Dr. Manuel Callejas Creatinine [Mass/Vol] 1.20 mg/dL Normal 0.70-1.30 [facility] Comment on above: Performed By: #### C MP, LIPID #### [facility] [address] [place] [address] Dr. Manuel Callejas EGFR-AF VENEZUELAN >60 Normal >=60 [facility] Comment on above: Performed By: #### C MP, LIPID #### [facility] [address] [place] [address] Dr. Manuel Callejas EGFR-NON AF VENEZUELAN =60 Normal >=60 [facility] Comment on above: Performed By: #### C MP, LIPID #### [facility] [address] [place] [address] Dr. Manuel Callejas Globulin (S) [Mass/Vol] 3.6 g/dL Normal [facility] Comment on above: Performed By: #### C MP, LIPID #### [facility] [address] [place] [address] Dr. Manuel Callejas Glucose [Mass/Vol] 146 mg/dL Critically high 74-106 [facility] Comment on above: Performed By: #### C MP, LIPID #### [facility] [address] [place] [address] Dr. Manuel Callejas Potassium [Moles/Vol] 3.7 mmol/L Normal 3.5-5.1 [facility] Comment on above: Performed By: #### C MP, LIPID #### [facility] [address] [place] [address] Dr. Manuel Callejas Protein [Mass/Vol] 7.4 g/dL Normal 6.4-8.2 [facility] Comment on above: Performed By: #### C MP, LIPID #### [facility] [address] [place] [address] Dr. Manuel Callejas Sodium [Moles/Vol] 142 mmol/L Normal 136-145 [facility] Comment on above: Performed By: #### C MP, LIPID #### [facility] [address] [place] [address] Dr. Manuel Callejas Urea nitrogen [Mass/Vol] 31.0 mg/dL Critically high 7.0-18.0 [facility] Comment on above: Performed By: #### C MP, LIPID #### [facility] [address] [place] [address] Dr. Manuel Callejas Urea nitrogen/Creatini ne [Mass ratio] 25.8 mg/mg Normal [facility] Comment on above: Performed By: #### C MP, LIPID #### [facility] [address] [place] [address] Dr. Manuel Callejas CBC AUTO DIFFon 05-27-2022 BASO # 0.0 103/ul Normal 0.0-0.1 [facility] Comment on above: Performed By: #### V ITAD #### [facility] [address] [place] [address] Dr. Manuel Callejas Basophils/100 WBC (Bld) 0.5 % Normal 0.2-2.0 [facility] Comment on above: Performed By: #### V ITAD #### [facility] [address] [place] [address] Dr. Manuel Callejas EO # 0.2 103/ul Normal 0.0-0.7 [facility] Comment on above: Performed By: #### V ITAD #### [facility] [address] [place] [address] Dr. Manuel Callejas Eosinophils/100 WBC (Bld) 2.2 % Normal 0.9-7.0 [facility] Comment on above: Performed By: #### V ITAD #### [facility] [address] [place] [address] Dr. Manuel Callejas Erythrocyte distribution width (RBC) [Ratio] 12.0 % Normal 11.0-15.0 [facility] Comment on above: Performed By: #### V ITAD #### [facility] [address] [place] [address] Dr. Manuel Callejas Hematocrit (Bld) [Volume fraction] 38.5 % Critically low 42.0-54.0 [facility] Comment on above: Performed By: #### V ITAD #### [facility] [address] [place] [address] Dr. Manuel Callejas Hemoglobin (Bld) [Mass/Vol] 13.1 g/dL Critically low 14.0-18.0 [facility] Comment on above: Performed By: #### V ITAD #### [facility] [address] [place] [address] Dr. Manuel Callejas IG # 0.05 10e3/ul Critically high 0.00-0.03 [facility] Comment on above: Performed By: #### V ITAD #### [facility] [address] [place] [address] Dr. Manuel Callejas IG % 0.6 % Critically high 0.0-0.5 [facility] Comment on above: Performed By: #### V ITAD #### [facility] [address] [place] [address] Dr. Manuel Callejas LYMPH # 2.2 103/ul Normal 1.2-3.8 [facility] Comment on above: Performed By: #### V ITAD #### [facility] [address] [place] [address] Dr. Manuel Callejas Lymphocytes/100 WBC (Bld) 27.1 % Normal 20.5-60.0 [facility] Comment on above: Performed By: #### V ITAD #### [facility] [address] [place] [address] Dr. Manuel Callejas MANUAL DIFF REQ NO Normal [facility] Comment on above: Performed By: #### V ITAD #### [facility] [address] [place] [address] Dr. Manuel Callejas MCH (RBC) [Entitic mass] 31.4 pg Normal 25.9-34.0 [facility] Comment on above: Performed By: #### V ITAD #### [facility] [address] [place] [address] Dr. Manuel Callejas MCHC (RBC) [Mass/Vol] 34.0 g/dL Normal 29.9-35.2 [facility] Comment on above: Performed By: #### V ITAD #### [facility] [address] [place] [address] Dr. Manuel Callejas MCV (RBC) [Entitic vol] 92.3 fL Normal 80.0-94.0 [facility] Comment on above: Performed By: #### V ITAD #### [facility] [address] [place] [address] Dr. Manuel Callejas MONO # 0.7 103/ul Normal 0.3-0.8 [facility] Comment on above: Performed By: #### V ITAD #### [facility] [address] [place] [address] Dr. Manuel Callejas Monocytes/100 WBC (Bld) 9.1 % Normal 1.7-12.0 [facility] Comment on above: Performed By: #### V ITAD #### [facility] [address] [address] [address] Manuel Callejas NEUT # 5.0 103/ul Normal 1.4-6.5 [facility] Comment on above: Performed By: #### V ITAD #### [facility] [address] [place] [address] Dr. Manuel Callejas Neutrophils/100 WBC (Bld) 60.5 % Normal 43.0-75.0 [facility] Comment on above: Performed By: #### V ITAD #### [facility] [address] [place] [address] Dr. Manuel Callejas Platelet mean volume (Bld) [Entitic vol] 9.1 fL Critically low 9.5-13.5 [facility] Comment on above: Performed By: #### V ITAD #### [facility] [address] [place] [address] Dr. Manuel Callejas PLT 202 103/ul Normal 150-450 [facility] Comment on above: Performed By: #### V ITAD #### [facility] [address] [place] [address] Dr. Manuel Callejas RBC 4.17 106/ul Critically low 4.70-6.10 [facility] Comment on above: Performed By: #### V ITAD #### [facility] [address] [place] [address] Dr. Manuel Callejas WBC 8.2 103/ul Normal 4.0-11.0 [facility] Comment on above: Performed By: #### V ITAD #### [facility] [address] [place] [address] Dr. Manuel Callejas PROF CHEM 8 (BAS METB)on Anion gap [Moles/Vol] 13.2 mmol/L Normal [facility] Comment on above: Performed By: #### B MP #### [facility] [address] [place] [address] Dr. Manuel Callejas Calcium [Mass/Vol] 8.9 mg/dL Normal 8.5-10.1 [facility] Comment on above: Performed By: #### B MP #### [facility] [address] [address] [address] Manuel Callejas Chloride [Moles/Vol] 106 mmol/L Normal 98-107 [facility] Comment on above: Performed By: #### B MP #### [facility] [address] [address] [address] Manuel Callejas CO2 [Moles/Vol] 25.9 mmol/L Normal 21.0-32.0 [facility] Comment on above: Performed By: #### B MP #### [facility] [address] [address] [address] Manuel Callejas Creatinine [Mass/Vol] 1.38 mg/dL Critically high 0.70-1.30 [facility] Comment on above: Performed By: #### B MP #### [facility] [address] [place] [address] Dr. Manuel Callejas EGFR-AF VENEZUELAN >60 Normal >=60 [facility] Comment on above: Performed By: #### B MP #### [facility] [address] [address] [address] Manuel Callejas EGFR-NON AF VENEZUELAN 51 mL/min/1.73m2 Critically low >=60 [facility] Comment on above: Performed By: #### B MP #### [facility] [address] [place] [address] Dr. Manuel Callejas Glucose [Mass/Vol] 126 mg/dL Critically high 74-106 [facility] Comment on above: Performed By: #### B MP #### [facility] [address] [address] [address] Manuel Callejas Potassium [Moles/Vol] 4.1 mmol/L Normal 3.5-5.1 [facility] Comment on above: Performed By: #### B MP #### [facility] [address] [place] [address] Dr. Manuel Callejas Sodium [Moles/Vol] 141 mmol/L Normal 136-145 [facility] Comment on above: Performed By: #### B MP #### [facility] [address] [address] [address] Manuel Callejas Urea nitrogen [Mass/Vol] 31.0 mg/dL Critically high 7.0-18.0 [facility] Comment on above: Performed By: #### B MP #### [facility] [address] [place] [address] Dr. Manuel Callejas Urea nitrogen/Creatini ne [Mass ratio] 22.5 mg/mg Normal [facility] Comment on above: Performed By: #### B MP #### [facility] [address] [place] [address] Dr. Manuel Callejas CALCIUM IONIZEDon 02-26-2022 Calcium, Ionized, Serum 4.9 mg/dL Normal 4.5-5.6 [facility] Comment on above: Performed By: #### V ITAD #### [facility] [address] [place] [address] Dr. Manuel Callejas PTH INTACTon 02-26-2022 PTH, Intact 29 pg/mL Normal 15-65 [facility] Comment on above: Performed By: #### P THINT #### [facility] [address] [place] [address] Dr. Manuel Callejas PROF CHEM 8 (BAS METB)on Anion gap [Moles/Vol] 8.9 mmol/L Normal [facility] Comment on above: Performed By: #### V ITAD #### [facility] [address] [place] [address] Dr. Manuel Callejas Calcium [Mass/Vol] 8.6 mg/dL Normal 8.5-10.1 [facility] Comment on above: Performed By: #### V ITAD #### [facility] [address] [place] [address] Dr. Manuel Callejas Chloride [Moles/Vol] 105 mmol/L Normal 98-107 [facility] Comment on above: Performed By: #### V ITAD #### [facility] [address] [place] [address] Dr. Manuel Callejas CO2 [Moles/Vol] 32.5 mmol/L Critically high 22.0-30.0 [facility] Comment on above: Performed By: #### V ITAD #### [facility] [address] [address] [address] Manuel Callejas Creatinine [Mass/Vol] 1.08 mg/dL Normal 0.66-1.25 [facility] Comment on above: Performed By: #### V ITAD #### [facility] [address] [address] [address] Manuel Callejas EGFR-AF VENEZUELAN >60 Normal >=60 [facility] Comment on above: Performed By: #### V ITAD #### [facility] [address] [place] [address] Dr. Manuel Callejas EGFR-NON AF VENEZUELAN >60 Normal >=60 [facility] Comment on above: Performed By: #### V ITAD #### [facility] [address] [place] [address] Dr. Manuel Callejas Glucose [Mass/Vol] 137 mg/dL Critically high 74-106 [facility] Comment on above: Performed By: #### V ITAD #### [facility] [address] [address] [address] Manuel Callejas Potassium [Moles/Vol] 3.4 mmol/L Normal 3.4-5.0 [facility] Comment on above: Performed By: #### V ITAD #### [facility] [address] [place] [address] Dr. Manuel Callejas Sodium [Moles/Vol] 143 mmol/L Normal 137-145 [facility] Comment on above: Performed By: #### V ITAD #### [facility] [address] [address] [address] Manuel Callejas Urea nitrogen [Mass/Vol] 23.0 mg/dL Critically high 7.0-18.0 [facility] Comment on above: Performed By: #### V ITAD #### [facility] [address] [place] [address] Dr. Manuel Callejas Urea nitrogen/Creatini ne [Mass ratio] 21.3 mg/mg Normal [facility] Comment on above: Performed By: #### V ITAD #### [facility] [address] [place] [address] Dr. Manuel Callejas URINE T PROTEIN CREAT RATIOo n 02-25-2022 Protein (U) [Mass/Vol] 16.9 mg/dL Critically high <=12.0 [facility] Comment on above: Performed By: #### U RTPCR #### [facility] [address] [address] [address] Manuel Callejas UR PROT CREAT RAT 0.31 Normal [facility] Comment on above: Performed By: #### U RTPCR #### [facility] [address] [address] [address] Manuel Callejas URINE CREAT 53.91 mg/dL Normal 20.00-300.00 [facility] Comment on above: Performed By: #### U RTPCR #### [facility] [address] [address] [address] Manuel Callejas VITAMIN D 25 OHon 02-25-2022 VIT D 25-OH 20.9 ng/mL Normal [facility] Comment on above: Performed By: #### V ITAD #### [facility] [address] [address] [address] Manuel Callejas VIT D RANGES SEE BELOW Normal [facility] Comment on above: Result Comment: <20 ng/mL Vit D deficient 20 - <30 ng/mL Vit D insufficient 30 - 100 ng/mL Vit D sufficient >100 ng/mL Potential Toxicity Performed By: #### V ITAD #### [facility] [address] [address] [address] Manuel Callejas Cardiovascular Lab Reporton 01-09-2021 Cardiovascular Lab Report [facility] Patient Name: [facility] MR #: [id number] Physician: Ten Eckert MD Department of Service Date: 01/09/2021 Medicine Birthdate: 1950 Division of Room #: CC Cardiology Adult Cardiovascular Services [address] [place] [address] Cardiovascular Laboratory Report DIRECT CARDIOVERSION PROCEDURE NOTE Date: 01/09/2021. Type of procedure: DC Cardioversion. Performed by: Ten Eckert MD. Fellow: Fran Dillard M.D. Informed consent: Signed by patient. Indication: Afib. Preparation and technique: Informed consent was obtained from the patient after explaining the indications, risks, and benefits as well as alternatives. The patient understood and agreed and signed the consent form. The patient was brought to the gold leaf laborer and direct current cardioversion was performed under conscious sedation. The patient received a total of 4.5 mg of midazolam and 25 mcg of fentanyl during the procedure. The patient confirmed that he had taken 4 weeks of full anticoagulation without missing any doses. A synchronized biphasic cardioversion was performed at 300 joules of energy. The patient was successfully cardioverted to sinus rhythm and postprocedure ECG was done to confirm. No complications throughout the procedure. Plan: Continue anticoagulation. Ten Eckert MD Cardiac Electrophysiology Electronically Signed by: Ten Eckert MD 01/26/2021 10:13 A Ten Eckert MD I was present for the entire procedure. Date Dict: 01/09/2021/12:20 P/Fran Dillard MD Date Trans: 01/09/2021 01:21 P/lilao [id number] cc: Patti hTomas M.D. [address] [facility] [address] Normal [facility] POC GLUCOSE LABon 11-30-2020 Glucose [Mass/Vol] 131 mg/dL High 70-100 [facility] Comment on above: Performed By: #### [id number] #### [facility] [address] [place], [place] [id number] [place] [address] *MRSA/MSSA DNA NASALon 11-29 *MRSA/MSSA DNA NASAL Clinical Report: (D) Specimen: NASAL SWAB Collected: 11/29/2020 06:30 Status: Final Last Updated: 11/29/2020 11:37 MSSA DNA (Final) Negative MRSA DNA (Final) Negative Normal [facility] Comment on above: Performed By: #### [id number] #### [facility] [address] [facility] [facility] [place], [place] [address] Cardiovascular Lab Reporton 11-29-2020 Cardiovascular Lab Report [facility] Patient Name: Christo Tomlin MR #: [id number] Department of Physician: Ten Eckert MD Medicine Service Date: 11/29/2020 Division of Birthdate: 1950 Cardiology Room #: 3AB [id number] Adult Cardiovascular Services [facility] [address] [place], [place] [address] Cardiovascular Laboratory Report ATRIAL FIBRILLATION ABLATION PROCEDURE NOTE DATE OF PROCEDURE: 11/29/2020 PERFORMING PHYSICIAN: Dr. Ten cEkert CONSENT: Patient NAME OF THE PROCEDURE: Pulmonary Vein Isolation and Comprehensive EP study. INDICATIONS FOR PROCEDURE: 1. Persistent atrial fibrillation non responsive to pharmacologic therapy. PROCEDURES PERFORMED: 1. Sonosite guided venous access as noted below and images stored in PACS. 2. Comprehensive EP study and catheter ablation for persistent atrial fibrillation through the pulmonary vein isolation technique. This includes right atrial recording and pacing, His bundle recording and right ventricular recording and pacing. 3. Intracardiac EP 3D mapping. 4. Intracardiac echocardiogram 5. Left atrial and coronary sinus recording and pacing to assess ablation results. 6. Left heart pressure measurements and LV pacing and recording. 7. Induction of arrhythmia and testing of ablation results using intravenous adenosine infusion. 8. Fluroscopy. FLUOROSCOPY: 2min 25s/ 17mGray PROCEDURE NOTE: Risks, benefits and alternatives of the procedure were discussed with the patient and family who agreed to proceed. Please refer to my consult note for details of the discussion and of indications. The patient was brought to the EP lab and a procedural pause was performed identifying the patient, the procedure. He was noted to be in atrial fibrillation at that time. LIZBETH was performed to rule out LA thrombus and clot following which cardioversion was performed with 200 joules and converted to sinus rhythm. He was noted to have somewhat diseased left atrial myocardium with markedly enlarged right atrium and severely enlarged left atrium. The cause for the RA dilatation was unknown as he was not noted to have a significant TR. The esophagus was noted to be in the midline. Both the groins were then prepared and draped. Ultrasound was used to determine the course and patency of the femoral veins on both sides and they were noted to be patent and the image stored in Merge. After infiltration with 1% lidocaine, 4 venous sheaths were placed in the right and left femoral vein access as noted below. RFV: 8Fx3 [employer] ThermoCool SF Bi-Directional over SL1/ Vizigo, SL1:Pentaray, ICE catheter. LFV: 8F x1 CS Catheter (EZ Steer) Heparin bolus was given followed by continuous intravenous drip to target ACT around 350. An intracardiac ultrasound catheter was inserted into the right atrium to examine the right atrial anatomy, atrial septum, pulmonary vein anatomy and to monitor for pericardial effusion and guide transseptal access. At baseline, there was no pericardial effusion and no KAREN clot. LA was noted to be mildly enlarged. Esophagus was mapped using the TerviuUND 3D mapping software with esophastar catheter and noted to be towards the midline. Double transseptal access technique was used to cross to the left side. Following the first transeptal access, which was achieved via puncture of the thinner aspect of the septum using Jann needle, Pentaray catheter was placed in the left atrium. Mean LA pressures were noted as below. LV pacing revealed no VA conduction. A second transseptal access was then achieved. With repeat access, SL1 sheath was exchanged over a wire to 8.5F Vizigo sheath. Pulmonary vein and left atrial anatomic mapping was performed using a 3-D CARTO computer-based mapping system. Identification of the pulmonary vein ostia was assisted by the left atrial signals on the ablation catheter, the ICE catheter and the Pentaray catheter placed in the individual pulmonary veins. There was a separate ostium on the left and separate on the right side. There was signals noted in all the veins. A temperature probe was placed in the esophagus to monitor and avoid rise of temperature by more than a degree celsius. Wide area circumferential ablation technique (WACA) was then performed. Power settings were 30watts in the anterior aspect of WACA and 25-30W while ablating on the posterior wall as well as the roof, where vagal response was observed. Following left WACA, entrance block was observed. Right sided PVI was then performed using a WACA approach with care to pace the anterior aspect of WACA and sanjana to ensure there was no phrenic capture. Upon completion of the right sided WACA, entrance block was seen and perivenous pacing confirmed isolation. In the end, all pulmonary veins were isolated. Adenosine was given in 12mg doses leading to hypotension and AV blo (more content not included)... Normal [facility] POC GLUCOSE LABon 11-29-2020 Glucose [Mass/Vol] 136 mg/dL High 70-100 [facility] Comment on above: Performed By: #### [id number] #### [facility] [address] [place] [address], [facility] Glucose [Mass/Vol] 133 mg/dL High 70-100 [facility] Comment on above: Performed By: #### [id number] #### [facility] [address] [place] [address], [facility] PROTHROMBIN TIMEon INR Coag (PPP) [Relative time] 1.04 {INR} Normal 0.91-1.16 [facility] Comment on above: Result Comment: ACCC P RECOMMENDED INR FOR WARFARIN THERAPY ---- ------- CONDITION INR PROPHYLAXIS OF VENOUS THROMBOSIS 2-3 (HIGH-RISK SURGERY) TREATMENT OF VENOUS THROMBOSIS 2-3 TREATMENT OF PULMONARY EMBOLISM 2-3 PREVENTION OF SYSTEMIC EMBOLISM: 2-3 ACUTE MYOCARDIAL INFARCTION TISSUE HEART VALVES VALVULAR HEART DISEASE ATRIAL FIBRILLATION RECURRENT SYSTEMIC EMBOLISM MECHANICAL HEART VALVE 2.5-3.5 FROM: ORAL ANTICOAGULANTS. MECHANISM OF ACTION, CLINICAL EFFECTIVENESS, AND OPTIMAL THERAPEUTIC RANGE. CHEST 1995;108:231S-246S. Performed By: #### [id number] #### [facility] [address] [place] [address], [facility] PT Coag (PPP) [Time] 13.6 s Normal 12.3-14.8 [facility] Comment on above: Result Comment: ALL RESULTS MUST BE INTERPRETED WITH RESPECT TO BLOOD DRAWING ARTIFACT OR DILUTION ERROR OF ANTICOAGULANT AT THE TIME OF SAMPLING. Performed By: #### [id number] #### [facility] [address] [place] [address], [facility] HOSPITAL TYPE AND CROSSMATCHon 2020 ABO INTERPRETATION B Normal [facility] Comment on above: Performed By: #### 6 [id number] #### [facility] [address] [place] [address], [facility] RH INTERPRETATION Positive Normal [facility] Comment on above: Performed By: #### 6 [id number] #### [facility] [address] [place] [address], [facility] *SARS-CoV-2 COVID-19on 11-27 SARS-CoV-2 (COVID-19) RNA HARPREET+probe Ql (Unsp spec) Not detected Normal Not Detected [facility] Comment on above: Order Comment: The A ptima SARS-CoV-2 assay is a nucleic acid amplification test intended for the qualitative detection of RNA from SARS-CoV-2 isolated and purified from nasopharyngeal (SALES ORDER CLERK),oropharyngeal (OP), nasal swab, sputum, and bronchoalveolar lavage (BAL) specimens from patients with signs and symptoms of infection who are suspected of COVID-19. Results are for the identification of SARS-CoV-2 RNA. The SARS-CoV-2 RNA is generally detectable during the acute phase of infection. The Aptima SARS-CoV-2 Assay on the [employer] Event Network and Kill Buck Fusion system is intended for use by laboratory personnel specifically instructed and trained in the operation of the Kill Buck and Kill Buck Fusion system. The Aptima SARS-CoV-2 assay is only for use under the Food and Drug Administration Emergency Use Authorization. Testing is limited to laboratories certified under the Clinical Laboratory Improvement Amendments of 1988 (CLIA), 42 U.S.C. ???263a, to perform high complexity tests. Not Detected: Not detected does not preclude SARS-CoV-2 infection and should not be used as the sole basis for patient management decisions. Not detected results must be combined with clinical observations, patient history, and epidemiological information. Performed By: #### 3 1792 #### [facility] [address] [place] [address], [facility] CREATININE BLOODon Creatinine [Mass/Vol] 1.06 mg/dL Normal 0.70-1.30 [facility] Comment on above: Performed By: #### 2 5656 #### [facility] [address] [place] [address], [facility] GFR/1.73 sq M.predicted among blacks MDRD (S/P/Bld) [Vol rate/Area] mL/min/{1.73_m2} Normal >60 [facility] Comment on above: Performed By: #### 2 5656 #### [facility] [address] [place] [address], [facility] GFR/1.73 sq M.predicted among non-blacks MDRD (S/P/Bld) [Vol rate/Area] mL/min/{1.73_m2} Normal >60 [facility] Comment on above: Performed By: #### 2 5656 #### [place] [address], [facility] CTA CHESTon 11-27-2020 CTA CHEST [facility] Department of Radiology [address] [place] [id number] Patient Name: ALINE TOMLIN : 1950 Sex: M Age: Race: White Pt. Location: [facility] Patient Status: D Ordered Date: 10/26/2020 11:15:00 AM Completed Date: 11/27/2020 12:09 PM Requesting Provider: TEN ECKERT Attending Provider: TEN ECKERT Report Copy To: PATTI THOMAS Signs & Symptoms: I48.0 Paroxysmal atrial fibrillation I10 History: [place] OK with Amanda - patient will come early for labs. NPC Req. Per Medicare A/B for CPT 44007 Med Nec-Passed 11/13/20 *SLA Comments: CT pulmonary veins for afib ablation Exam: CTA CHEST Addendum Begins 3-D maximum intensity projection images were generated and reviewed under concurrent physician supervision. Electronically signed: Carlo Barillas. Addendum Ends CTA CHEST 11/27/2020 12:11 PM CLINICAL INDICATIONS: I48.0 Paroxysmal atrial fibrillation I10 TECHNOLOGIST COMMENTS: pre ablation htn QUESTIONS PER RADIOLOGIST: CT pulmonary veins for afib ablation PROTOCOL: Axial CT angiography images were obtained with IV contrast. CONTRAST: Contrast: OMNIPAQUE 350 (LOCM), 100 milliliter, Intravenous TECHNIQUE: Multidetector CT axial slices of the chest were obtained with IV contrast. Multiplanar reformats were performed and viewed on a separate workstation and reviewed to further define anatomy and possible pathology. All CT scans at this facility use dose modulation, iterative reconstruction, and/or weight based dosing when appropriate to reduce radiation dose to as low as reasonably achievable. COMPARISON: None. FINDINGS: Lower neck: Thyroid gland within normal limits, no supraclavicle adenopathy. Vessels: Pulmonary arteries appeared grossly unremarkable. Mild atherosclerotic changes in the aorta. Moderate coronary artery calcification.. Mediastinum and Rachel: Within normal limits. Heart: Normal size. No pericardial effusion. Airways: Within normal limits Lungs: Bilateral mild dependent atelectasis. No focal consolidation. Pleura: Within normal limits. Chest Wall: Within normal limits. Upper Abdomen: Within normal limits. Bones: Bony spurring in the thoracic spine suggesting moderate spondylosis. There is normal size and morphology of the left atrium. There is maximum transverse dimensions of the left region of 8.7 x 5.6 cm. There is normal anatomy and morphology of the pulmonary veins with 2 veins seen draining on each side. The left inferior pulmonary vein ostium measures 17 mm and the first branch is at 2.5 cm. The right inferior pulmonary vein ostium measures 1.7 cm and the first branch is approximately 2.7 cm from the ostium. The right upper pulmonary vein ostium is 15 mm in diameter and the first branch is 3.2 cm from the ostium. The left superior pulmonary vein ostium is 18 mm in diameter and the first branch is 2.8 cm from the ostium. There is no filling defects in the left atrial appendage. IMPRESSION: Normal size and morphology of the left atrium and bilateral pulmonary veins with measurements described above. Bilateral mild dependent atelectasis and moderate coronary artery calcification. Mild thoracic spondylosis. Electronically signed: Parvin Valencia. Transcribed by: [id number], User Resident: Electronically Signed by: CARLO BARILLAS @ 12/09/2020 07:48 AM Normal [facility] Comment on above: Order Comment: CT pu lmonary veins for afib ablation CNOVon 09-01-2019 CNOV Office Visit (UROLMN ) ALINE TOMLIN ([id number]) 1950 M Date Time Provider Department 09/01/19 2:30 PM JEFF GUTIERREZ During your visit today, we recorded the following information about you: Pulse Blood pressure Weight Height 67/minute 157/79 113.7 kg 1.93 m Jeff Gutierrez MD 09/01/2019 3:43 PM Signed Followed for nephrolithiasis. No symptoms whatsoever. Dr. Horner did a laser of left ureteral stone 07/14/19 (failed ESWL 06/03/19). Voids with good stream. NF 2-3 (drinking at night), DF q3-4h. No hematuria, dysuria, fever, nausea, incontinence. Has some right flank pain. Bowels: No diarrhea, constipation, blood, vomiting. U/A neg today. No recent imaging. Patient is here to discuss possible right stone removal. I measure it at 5 mm in right mid-lower pole on CT from 04/27. Long discussion with patient and spouse regarding ESWL, URS/laser/stent, pros and cons, success and failure rates, etc. No obstruction and it is elective unless something has changed and I recommend another CT if patient contemplating intervention. Alternatively, patient can have the right stone followed conservatively by Dr. Horner. All questions answered. States BP's are OK at home but has HBP today. Imp: The primary encounter diagnosis was Renal calculi. Diagnoses of Essential hypertension and Flank pain were also pertinent to this visit. Plan: Patient to let me know if wants right stone intervention. F/U with Dr. Horner. Jeff Gutierrez MD, FACS Director, Surgical Stone Disease, [facility] communications director, [facility] Pager [phone] 09/01/2019 Referring Provider: DANNY HORNER [[id number]] Allergies As of Date: 09/01/2019 Noted Allergy Reaction ADHESIVE TAPE (ROSINS) 06/03/2019 2 - Rash 9 - Itching 14 - Other: See Comments PENICILLINS 06/03/2019 14 - Other: See Comments Date Reviewed: 09/01/2019 Reviewed by: Janene Barroso - Fully Assessed Primary Visit Diagnosis:Renal calculi [N20.0] Other Visit Diagnoses:Essential hypertension [I10] Flank pain [R10.9] Prescriptions as of 09/01/2019 Sig: METFORMIN 500 MG TABLET Take 500 mg by mouth twice da* SIMVASTATIN 40 MG TABLET Take 40 mg by mouth once damaris* POTASSIUM CHLORIDE ER 20 MEQ * Take by mouth. METOPROLOL SUCCINATE ER 100 M* Take 100 mg by mouth once gianni* HYDROCHLOROTHIAZIDE 12.5 MG T* TAKE 1 TABLET BY MOUTH EVERY * AMLODIPINE 10 MG TABLET Take 10 mg by mouth once damaris* FOSINOPRIL 40 MG TABLET Take 40 mg by mouth once damaris* OXYBUTYNIN CHLORIDE 5 MG TABL* Take 5 mg by mouth twice damaris* HYDROCODONE 5 MG-ACETAMINOPHE* TAKE 1 TO 2 TABLETS BY MOUTH * Problem List As Of Date 09/01/2019 Noted Resolved Calculus of ureter [N20.1] INVALID FOR* Essential hypertension [I10] INVALID FOR* Hyperlipidemia [E78.5] INVALID FOR* Diabetes mellitus (HCC) [E11.9] INVALID FOR* Family history of nephrolithiasis [Z84.1] INVALID FOR* Renal calculi [N20.0] INVALID FOR* Flank pain [R10.9] INVALID FOR* Disposition: Return if symptoms worsen or fail to improve. Follow-up and Disposition History Recorded Encounter Status:Closed by JEFF GUTIERREZ MD on 09/01/19 [facility] KENNYTOUTREACHolonnie 09-01-2019 [facility] ([facility] ALINE TOMLIN ([id number]) 1950 M Date Time Provider Department 09/01/19 JEFF GUTIERREZ During your visit today, we recorded the following information about you: Allergies As of Date: 09/01/2019 Noted Allergy Reaction ADHESIVE TAPE (ROSINS) 06/03/2019 2 - Rash 9 - Itching 14 - Other: See Comments PENICILLINS 06/03/2019 14 - Other: See Comments Date Reviewed: 09/01/2019 Reviewed by: Janene Barroso - Fully Assessed Visit Diagnosis:Screening for genitourinary condition [Z13.89] Prescriptions as of 09/01/2019 Sig: METFORMIN 500 MG TABLET Take 500 mg by mouth twice da* SIMVASTATIN 40 MG TABLET Take 40 mg by mouth once damaris* POTASSIUM CHLORIDE ER 20 MEQ * Take by mouth. METOPROLOL SUCCINATE ER 100 M* Take 100 mg by mouth once gianni* HYDROCHLOROTHIAZIDE 12.5 MG T* TAKE 1 TABLET BY MOUTH EVERY * AMLODIPINE 10 MG TABLET Take 10 mg by mouth once damaris* OXYBUTYNIN CHLORIDE 5 MG TABL* Take 5 mg by mouth twice damarsi* HYDROCODONE 5 MG-ACETAMINOPHE* TAKE 1 TO 2 TABLETS BY MOUTH * FOSINOPRIL 40 MG TABLET Take 40 mg by mouth once damaris* Problem List As Of Date 09/01/2019 Noted Resolved Calculus of ureter [N20.1] INVALID FOR* Essential hypertension [I10] INVALID FOR* Hyperlipidemia [E78.5] INVALID FOR* Diabetes mellitus (HCC) [E11.9] INVALID FOR* Family history of nephrolithiasis [Z84.1] INVALID FOR* Renal calculi [N20.0] INVALID FOR* Flank pain [R10.9] INVALID FOR* Encounter Status:Closed by PAUL, PRODUSER on 09/16/19 [facility] Patient Outreach (NEPHMN) ALINE TOMLIN ([id number]) 1950 M Date Time Provider Department 09/01/19 JEFF GUTIERREZ During your visit today, we recorded the following information about you: Allergies As of Date: 09/01/2019 Noted Allergy Reaction ADHESIVE TAPE (ROSINS) 06/03/2019 2 - Rash 9 - Itching 14 - Other: See Comments PENICILLINS 06/03/2019 14 - Other: See Comments Date Reviewed: 09/01/2019 Reviewed by: Janene Barroso - Fully Assessed Visit Diagnosis:Renal calculi [N20.0] Order(s):KENNETH CHEMSTRIP ONLY [SQUA] Order #: [id number]. #:[id number] Prescriptions as of 09/01/2019 Sig: METFORMIN 500 MG TABLET Take 500 mg by mouth twice da* SIMVASTATIN 40 MG TABLET Take 40 mg by mouth once damaris* POTASSIUM CHLORIDE ER 20 MEQ * Take by mouth. METOPROLOL SUCCINATE ER 100 M* Take 100 mg by mouth once gianni* HYDROCHLOROTHIAZIDE 12.5 MG T* TAKE 1 TABLET BY MOUTH EVERY * AMLODIPINE 10 MG TABLET Take 10 mg by mouth once damaris* OXYBUTYNIN CHLORIDE 5 MG TABL* Take 5 mg by mouth twice damaris* HYDROCODONE 5 MG-ACETAMINOPHE* TAKE 1 TO 2 TABLETS BY MOUTH * FOSINOPRIL 40 MG TABLET Take 40 mg by mouth once damaris* Problem List As Of Date 09/01/2019 Noted Resolved Calculus of ureter [N20.1] INVALID FOR* Essential hypertension [I10] INVALID FOR* Hyperlipidemia [E78.5] INVALID FOR* Diabetes mellitus (HCC) [E11.9] INVALID FOR* Family history of nephrolithiasis [Z84.1] INVALID FOR* Renal calculi [N20.0] INVALID FOR* Flank pain [R10.9] INVALID FOR* Encounter Status:Closed by EPIC, PRODUSER on 09/16/19 Normal [facility] PROGRESSon 09-01-2019 PROGRESS HNO ID: [id number] Author: Jeff Gutierrez Service: ? Author Type: Physician Type: Progress Notes Filed: 09/01/2019 3:43 PM Note Text: Followed for nephrolithiasis. No symptoms whatsoever. Dr. Horner did a laser of left ureteral stone 07/14/19 (failed ESWL 06/03/19). Voids with good stream. NF 2-3 (drinking at night), DF q3-4h. No hematuria, dysuria, fever, nausea, incontinence. Has some right flank pain. Bowels: No diarrhea, constipation, blood, vomiting. U/A neg today. No recent imaging. Patient is here to discuss possible right stone removal. I measure it at 5 mm in right mid-lower pole on CT from 04/27. Long discussion with patient and spouse regarding ESWL, URS/laser/stent, pros and cons, success and failure rates, etc. No obstruction and it is elective unless something has changed and I recommend another CT if patient contemplating intervention. Alternatively, patient can have the right stone followed conservatively by Dr. Horner. All questions answered. States BP's are OK at home but has HBP today. Imp: The primary encounter diagnosis was Renal calculi. Diagnoses of Essential hypertension and Flank pain were also pertinent to this visit. Plan: Patient to let me know if wants right stone intervention. F/U with Dr. Horner. Jeff Gutierrez MD, FACS Director, Surgical Stone Disease, [facility] communications director, [facility] [employer] Pager [phone] 09/01/2019 Normal [facility] Urinalysison 09-01-2019 Bilirubin, Urine Negative Normal Negative [facility] Comment on above: Performed By: #### U A ####[facility]CLau[place] [phone] Clarity (U) Clear Normal Clear [facility] Comment on above: Performed By: #### U A ####[facility] [place] [phone] Color (U) Yellow Normal Yellow [facility] Comment on above: Performed By: #### U A ####[place] [address] [place] [phone] Comments SEE COMMENT Normal [facility] Comment on above: Result Comment: Micr oscopic not warranted Performed By: #### U A ####[facility] AveCleveland[address]opher [place] [phone] Glucose Ql (U) Negative Normal Negative [facility] Comment on above: Performed By: #### U A ####[facility]ClevelGilbert [place] [phone] Hemoglobin/Blood, Ur Negative Normal Negative [facility] Comment on above: Performed By: #### U A ####[facility] [place] [phone] Ketones Ql (U) Negative Normal Negative [facility] Comment on above: Performed By: #### U A ####[facility]ClevelGilbert [place]ille [phone] Leukest Negative Normal Negative [facility] Comment on above: Performed By: #### U A ####[facility] [place] [phone] Nitrite Ql (U) Negative Normal Negative [facility] Comment on above: Performed By: #### U A ####[facility]level[address] [phone] pH (Bld) 5.5 Normal 4.5-8.0 [facility] Comment on above: Performed By: #### U A ####[place] [address] [place], [place] [phone] Protein (U) [Mass/Vol] Negative Normal Negative [facility] Comment on above: Performed By: #### U A ####[address] [phone] Specific Ed[place], Ur 1.021 Normal 1.005-1.030 [facility] Comment on above: Performed By: #### U A ####[address] [phone] Urine Royer Comment SEE COMMENT Normal [facility] Comment on above: Result Comment: N/A Performed By: #### U A ####[address] [phone] Urobilinogen Qn (U) Normal Normal Normal [facility] Comment on above: Performed By: #### U A ####[address] [phone] CNOVon 06-14-2019 CNOV Office Visit (UROLMN ) ALINE TOMLIN ([id number]) 1950 M Date Time Provider Department 06/14/19 10:00 AM JEFF GUTIERREZ During your visit today, we recorded the following information about you: Pulse Blood pressure Weight Height 65/minute 143/82 112.9 kg 1.956 m Jeff Gutierrez MD 06/14/2019 11:36 AM Signed Basic HPI: 68 year old male Presents today for follow up appt. pt had a lithotripsy with Dr. Horner on 06/03/2019, stent placed on 04/30/2019, and was referred for stone management. No past medical history on file. No past surgical history on file. No family history on file. Social History Socioeconomic History Marital status: Spouse name: Not on file Number of children: Not on file Years of education: Not on file Highest education level: Not on file Occupational History Not on file Social Needs Financial resource strain: Not on file Food insecurity: Worry: Not on file Inability: Not on file Transportation needs: Medical: Not on file Non-medical: Not on file Tobacco Use Smoking status: Not on file Substance and Sexual Activity Alcohol use: Not on file Drug use: Not on file Sexual activity: Not on file Lifestyle Physical activity: Days per week: Not on file Minutes per session: Not on file Stress: Not on file Relationships Social connections: Talks on phone: Not on file Gets together: Not on file Attends temple service: Not on file Active member of club or organization: Not on file Attends meetings of clubs or organizations: Not on file Relationship status: Not on file Intimate partner violence: Fear of current or ex partner: Not on file Emotionally abused: Not on file Physically abused: Not on file Forced sexual activity: Not on file Other Topics Concerns: Not on file Social History Narrative Not on file GUROS: UA: Component Latest Ref Rng AND Units 06/14/2019 Color Yellow Yellow Clarity Clear Clear Glucose, Urine Negative mg/dL Negative Bilirubin, Urine Negative Negative Ketones, Urine Negative Negative Specific Ed[place], Ur 1.005 - 1.030 1.007 Hemoglobin/Blood,Ur Negative 3+ (A) pH, Urine 4.5 - 8.0 5.5 Protein, Urine Negative mg/dL Trace (A) Urobilinogen Normal Normal Nitrites Negative Negative Leukest Negative 1+ (A) Comments SEE COMMENT WBC, Urine 0 - 5 /HPF 0-5 RBC, Urine 0 - 3 /HPF >25 (A) Cast 0 /LPF SEE COMMENT (A) Urine Royer Comment SEE COMMENT KUB: brought disc Renal Sono: none Kidney Stone Analysis: none 24 hour urine test: none Force of Stream: strong NOCTURIA: No, 2 times /night Day Time Frequency: 1-2hr, depending on PO intake, on diuretic Hesitancy: No Intermittency: No Incomplete Emptying: No Post void Dribbling: No Urinary Retention Hx:No Double Voiding: No Urgency: No Dysuria: No Incontinence history: No Gross hematuria history: No UTI Hx: No Stone Event Hx: yes diagnosed 04/30/2019 has a 10mm stone 04/30 double J stent placed at [facility] Review, other organ system: GI: Blood: No Constipation: No Diarrhea: No Nausea/Vomiting: No OTHER: denies pain Claudette Cerda TIRE MOLD ENGRAVER UROLOGY NOTE: We had the pleasure of seeing Aline Tomlin in our Multidisciplinary Stone Clinic today. He wants second opinion on treatment (left ESWL by Dr. Horner). He is a pleasant 68 year old male who first had a stone episode in 2019. He has not had a prior 24-hour urine metabolic evaluation. He has had 0 shockwave lithotripsies, 0 ureteroscopies and 0 percutaneous nephrolithotomies He has the following family history of stones: Side of Family Relationship Number of Stones Paternal Father Maternal Brother Significant comorbidities include: Medical Diabetes,Hypertension The patient is currently asymptomatic. . The characteristics and location of the pain are not suggestive of a musculoskeletal origin. Patient here for second opinion regarding choices for his 8 x 10 mm left upper ureteral stone if the ESWL failed (no post-op x-rays done yet but patient has appt. with Dr. Horner soon, for f/u). He was counseled on the most recent imaging studies. CT Scan Imaging Date: 04/29/19 Stone Side Location Length (mm) Width (mm) HU STSD 1 Left upper ureter 10 9 2 3 4 5 Renal US or KUB Imaging Date: 05/18/19, KUB Stone Side Location Length (mm) Width (mm) 1 Left upper ureter 10 8 2 3 4 5 He was counseled on the options of: 1. Observation - risks including stone growth, stone movement, pain, impact on renal function. Chance of spontaneous stone passage of the largest stone: 0% 2. Shockwave lithotripsy - risks of bleeding (1 in 1000 severe bleed), residual fragments, need for a secondary procedure. Success based on size, location, hounsfield units and hlol-[id number]-[id number] distance: 80-85% 3. Ureteroscopy - risks of UTI, ureteral injury (1 in 1000 severe injury requiring major surgery), morbidity from ureteral stent Success: 98% 4. PCNL - risks of lung injury (1%), transfusion (5%), embolization (1%), injury to other organs, need for secondary procedure. Success: 98% Imp: The primary encounter diagnosis was Calculus of ureter. Diagnoses of Essential hypertension, Hyperlipidemia, unspecified hyperlipidemia type, and Type 2 diabetes mellitus with other specified complication, without long-term current use of insulin (HCC) were also pertinent to this visit. Also + FH stones. Plan: Based on this discussion, he wishes to undergo f/u with Dr. Horner and if stone not resolved, he may choose to come back to [facility]. I spent >30 minutes in this visit (including reviewing x-rays and records plus patient discussion), with more than 50% of the total [id number]-[id number] time of the visit devoted to patient counseling/coordinati on of care. Jeff Gutierrez MD Director, Surgical Stone Disease [facility] Pager [phone] 06/14/2019 Jeff Gutierrez MD 06/14/2019 11:39 AM Signed Addended by: JEFF GUTIERREZ MD on: 06/14/2019 11:39 AM Modules accepted: Orders Referring Provider: SELF [[id number]] Allergies As of Date: 06/14/2019 Noted Allergy Reaction ADHESIVE TAPE (ROSINS) 06/03/2019 2 - Rash 9 - Itching 14 - Other: See Comments PENICILLINS 06/03/2019 14 - Other: See Comments Date Reviewed: 06/14/2019 Reviewed by: Janene Braroso - Fully Assessed Primary Visit Diagnosis:Calculus of ureter [N20.1] Other Visit Diagnoses:Essential hypertension [I10] Hyperlipidemia, unspecified hyperlipidemia type [E78.5] Type 2 diabetes mellitus with other specified complication, without long-term current use of insulin (HCC) [E11.69] Family history of nephrolithiasis [Z84.1] Abnormal urinalysis [R82.90] Order(s):URINE CULTURE [SQURCUL] Order #: [id number] Prescriptions as of 06/14/2019 Sig: METFORMIN 500 MG TABLET Take 500 mg by mouth twice da* SIMVASTATIN 40 MG TABLET Take 40 mg by mouth once damaris* POTASSIUM CHLORIDE ER 20 MEQ * Take by mouth. METOPROLOL SUCCINATE ER 100 M* Take 100 mg by mouth once gianni* HYDROCHLOROTHIAZIDE 12.5 MG T* TAKE 1 TABLET BY MOUTH EVERY * AMLODIPINE 10 MG TABLET Take 10 mg by mouth once damaris* OXYBUTYNIN CHLORIDE 5 MG TABL* Take 5 mg by mouth twice damaris* HYDROCODONE 5 MG-ACETAMINOPHE* TAKE 1 TO 2 TABLETS BY MOUTH * FOSINOPRIL 40 MG TABLET Take 40 mg by mouth once damaris* Problem List As Of Date 06/14/2019 Noted Resolved Calculus of ureter [N20.1] INVALID FOR* Essential hypertension [I10] INVALID FOR* Hyperlipidemia [E78.5] INVALID FOR* Diabetes mellitus (HCC) [E11.9] INVALID FOR* Family history of nephrolithiasis [Z84.1] INVALID FOR* Disposition: Return if symptoms worsen or fail to improve. Follow-up and Disposition History Recorded Encounter Status:Closed by JEFF GUTIERREZ MD on 06/14/19 Normal [facility] Urinalysison 06-14-2019 Bilirubin, Urine Negative Normal [facility] Comment on above: Performed By: #### U A #### [facility] [address] [place], [place] [address] Cast SEE COMMENT Critically abnormal 0 [facility] Comment on above: Result Comment: 1-3 Hyaline Cast Performed By: #### U A #### [facility] [address] [place], [place] [address] Clarity (U) Clear Normal Clear [facility] Comment on above: Performed By: #### U A #### [facility] [address] [place], [place] [address] Color (U) Yellow Normal Yellow [facility] Comment on above: Performed By: #### U A #### [facility] [address] [place], [place] [address] Comments SEE COMMENT Normal [facility] Comment on above: Result Comment: Micr oscopic Examination Performed Performed By: #### U A #### [facility] [address] [place], [place] [address] Glucose Ql (U) Negative Normal Negative [facility] Comment on above: Performed By: #### U A #### [facility] [address] [place] [address] Hemoglobin/Blood, Ur 3+ Critically abnormal Negative [facility] Comment on above: Performed By: #### U A #### [facility] [address] [place] [address] Ketones Ql (U) Negative Normal Negative [facility] Comment on above: Performed By: #### U A #### [facility] [address] [place], [place] [address] Leukest 1+ Critically abnormal Negative [facility] Comment on above: Performed By: #### U A #### [facility] [address] [place], [place] [address] Nitrite Ql (U) Negative Normal Negative [facility] Comment on above: Performed By: #### U A #### [facility] [address] [place] [phone] pH (Bld) 5.5 Normal 4.5-8.0 [facility] Comment on above: Performed By: #### U A #### [facility] [address] [place], [place] [address] Protein (U) [Mass/Vol] Trace Critically abnormal Negative [facility] Comment on above: Performed By: #### U A #### [facility] [address] [place] [phone] RBC (U) [#/Vol] /uL Critically abnormal 0-3 [facility] Comment on above: Performed By: #### U A #### [place] [phone] Specific Edna, Ur 1.007 Normal 1.005-1.030 [facility] Comment on above: Performed By: #### U A #### [place] [phone] Urine Royer Comment SEE COMMENT Normal [facility] Comment on above: Result Comment: N/A Performed By: #### U A #### [place] [phone] Urobilinogen Qn (U) Normal Normal Normal [facility] Comment on above: Performed By: #### U A #### [place] [phone] WBC (Bld) [#/Vol] 0-5 Normal 0-5 [facility] Comment on above: Performed By: #### U A #### [place] [phone] Urine Cultureon 06-14-2019 Bacteria identified Cx Nom (U) Sp. Request/Comment: - Specimen received in preservative Culture Result - No growth (<1,000 CFU/ml) Normal [facility] Comment on above: Performed By: #### U RCUL #### [place] [address] CNPTOUTREACHon 06-13-2019 CNPTOUTREACH Patient Outreach (UROLMN) ALINE TOMLIN ([id number]) 1950 M Date Time Provider Department 06/13/19 JEFF GUTIERREZ During your visit today, we recorded the following information about you: Allergies As of Date: 06/13/2019 (Not on File) Date Reviewed: Never Reviewed Visit Diagnosis:Renal calculi [N20.0] Order(s):UA CHEMSTRIP ONLY [SQUA] Order #: [id number]. #:[id number] Problem List As Of Date: 06/13/2019 (None) Encounter Status:Closed by [employer] on 06/28/19 [facility] PROGRESSon 06-13-2019 PROGRESS HNO ID: [id number] Author: Jeff Gutierrez Service: ? Author Type: Physician Type: Progress Notes Filed: 06/14/2019 11:36 AM Note Text: Basic HPI: 68 year old male Presents today for follow up appt. pt had a lithotripsy with Dr. Horner on 06/03/2019, stent placed on 04/30/2019, and was referred for stone management. No past medical history on file. No past surgical history on file. No family history on file. Social History Socioeconomic History Marital status: Spouse name: Not on file Number of children: Not on file Years of education: Not on file Highest education level: Not on file Occupational History Not on file Social Needs Financial resource strain: Not on file Food insecurity: Worry: Not on file Inability: Not on file Transportation needs: Medical: Not on file Non-medical: Not on file Tobacco Use Smoking status: Not on file Substance and Sexual Activity Alcohol use: Not on file Drug use: Not on file Sexual activity: Not on file Lifestyle Physical activity: Days per week: Not on file Minutes per session: Not on file Stress: Not on file Relationships Social connections: Talks on phone: Not on file Gets together: Not on file Attends temple service: Not on file Active member of club or organization: Not on file Attends meetings of clubs or organizations: Not on file Relationship status: Not on file Intimate partner violence: Fear of current or ex partner: Not on file Emotionally abused: Not on file Physically abused: Not on file Forced sexual activity: Not on file Other Topics Concerns: Not on file Social History Narrative Not on file GUROS: UA: Component Latest Ref Rng AND Units 06/14/2019 Color Yellow Yellow Clarity Clear Clear Glucose, Urine Negative mg/dL Negative Bilirubin, Urine Negative Negative Ketones, Urine Negative Negative Specific Edna, Ur 1.005 - 1.030 1.007 Hemoglobin/Blood,Ur Negative 3+ (A) pH, Urine 4.5 - 8.0 5.5 Protein, Urine Negative mg/dL Trace (A) Urobilinogen Normal Normal Nitrites Negative Negative Leukest Negative 1+ (A) Comments SEE COMMENT WBC, Urine 0 - 5 /HPF 0-5 RBC, Urine 0 - 3 /HPF >25 (A) Cast 0 /LPF SEE COMMENT (A) Urine Royer Comment SEE COMMENT KUB: brought disc Renal Sono: none Kidney Stone Analysis: none 24 hour urine test: none Force of Stream: strong NOCTURIA: No, 2 times /night Day Time Frequency: 1-2hr, depending on PO intake, on diuretic Hesitancy: No Intermittency: No Incomplete Emptying: No Post void Dribbling: No Urinary Retention Hx:No Double Voiding: No Urgency: No Dysuria: No Incontinence history: No Gross hematuria history: No UTI Hx: No Stone Event Hx: yes diagnosed 04/30/2019 has a 10mm stone 04/30 double J stent placed at [facility] Review, other organ system: GI: Blood: No Constipation: No Diarrhea: No Nausea/Vomiting: No OTHER: denies pain Claudette Cerda RN STAFF UROLOGY NOTE: We had the pleasure of seeing Aline Tomlin in our Multidisciplinary Stone Clinic today. He wants second opinion on treatment (left ESWL by Dr. Horner). He is a pleasant 68 year old male who first had a stone episode in 2019. He has not had a prior 24-hour urine metabolic evaluation. He has had 0 shockwave lithotripsies, 0 ureteroscopies and 0 percutaneous nephrolithotomies He has the following family history of stones: Side of Family Relationship Number of Stones Paternal Father Maternal Brother Significant comorbidities include: Medical Diabetes,Hypertension The patient is currently asymptomatic. . The characteristics and location of the pain are not suggestive of a musculoskeletal origin. Patient here for second opinion regarding choices for his 8 x 10 mm left upper ureteral stone if the ESWL failed (no post-op x-rays done yet but patient has appt. with Dr. Horner soon, for f/u). He was counseled on the most recent imaging studies. CT Scan Imaging Date: 04/29/19 Stone Side Location Length (mm) Width (mm) HU STSD 1 Left upper ureter 10 9 2 3 4 5 Renal US or KUB Imaging Date: 05/18/19, KUB Stone Side Location Length (mm) Width (mm) 1 Left upper ureter 10 8 2 3 4 5 He was counseled on the options of: 1. Observation - risks including stone growth, stone movement, pain, impact on renal function. Chance of spontaneous stone passage of the largest stone: 0% 2. Shockwave lithotripsy - risks of bleeding (1 in 1000 severe bleed), residual fragments, need for a secondary procedure. Success based on size, location, hounsfield units and pgfp-yb-firka distance: 80-85% 3. Ureteroscopy - risks of UTI, ureteral injury (1 in 1000 severe injury requiring major surgery), morbidity from ureteral stent Success: 98% 4. PCNL - risks of lung injury (1%), transfusion (5%), embolization (1%), injury to other organs, need for secondary procedure. Success: 98% Imp: The primary encounter diagnosis was Calculus of ureter. Diagnoses of Essential hypertension, Hyperlipidemia, unspecified hyperlipidemia type, and Type 2 diabetes mellitus with other specified complication, without long-term current use of insulin (HCC) were also pertinent to this visit. Also + FH stones. Plan: Based on this discussion, he wishes to undergo f/u with Dr. Horner and if stone not resolved, he may choose to come back to [facility]. I spent >30 minutes in this visit (including reviewing x-rays and records plus patient discussion), with more than 50% of the total vtpa-qv-joed time of the visit devoted to patient counseling/coordinati on of care. Jeff Gutierrez MD Director, Surgical Stone Disease [facility], [facility] Pager [phone] 06/14/2019 Normal [facility] ID-XR KUB 1 VIEW IMPORTon ID-XR KUB 1 VIEW IMPORT Images were obtained outside of [facility] [id number] N Normal [facility] ID-XR KUB 1 VIEW IMPORT Images were obtained outside of [facility] [id number] N Normal [facility] RF-XR RETROGRADE PYELOGRAM I MPORTon 04-30-2019 RF-XR RETROGRADE PYELOGRAM IMPORT Images were obtained outside of [facility] [id number] N Normal [facility] RF-XR RETROGRADE PYELOGRAM IMPORT Images were obtained outside of [facility] [id number] N Normal [facility] CT-CT ABD/PELVIS W CON IMPOR Ton 04-29-2019 CT-CT ABD/PELVIS W CON IMPORT Images were obtained outside of [facility] [id number] N Normal [facility] ID-CT ABD/PELVIS W CON IMPOR Ton 04-29-2019 ID-CT ABD/PELVIS W CON IMPORT Images were obtained outside of [facility] [id number] N Normal [facility] Vital Signs Date Time Vital Sign Value Performing Clinician Facility 10-28-2023 07:54-0500 Blood Pressure Location Danny HORNER [facility] 10-28-2023 07:54-0500 Diastolic blood pressure 76 mm[Hg] Danny HORNER [facility] 10-28-2023 07:54-0500 Heart rate 62 /min Danny HORNER [facility] 10-28-2023 07:54-0500 Respiratory rate 16 /min Danny HORNER [facility] 10-28-2023 07:54-0500 Systolic blood pressure 137 mm[Hg] Danny TopPatch [facility] 09-08-2023 13:48-0400 Diastolic blood pressure 85 mm[Hg] Danny TopPatch [facility] 09-08-2023 13:48-0400 Heart rate 77 /min Danny TopPatch [facility] 09-08-2023 13:48-0400 Systolic blood pressure 136 mm[Hg] Danny TopPatch [facility] 09-11-2021 16:00-0400 Body height 193.04 cm Cirilo Ori Other [facility] Other 09-11-2021 16:00-0400 Body mass index (BMI) [Ratio] 28.6 kg/m2 Cirilo Ori Other [facility] Other 09-11-2021 16:00-0400 Body temperature 96.2 [degF] Cirilo Ori Other [facility] Other 09-11-2021 16:00-0400 Body weight 106.6 kg Cirilo Ori Other [facility] Other 09-11-2021 16:00-0400 Diastolic blood pressure 75 mm[Hg] Cirilo Ori Other [facility] Other 09-11-2021 16:00-0400 Respiratory rate 18 /min Cirilo Ori Other [facility] Other 09-11-2021 16:00-0400 SaO2% (BldA) [Mass fraction] 98 % Cirilo Ori Other [facility] Other 09-11-2021 16:00-0400 Systolic blood pressure 135 mm[Hg] Cirilo Ori Other [facility] Other Encounters Encounter Date Encounter Type Care Provider Facility Start: 03-02-2024 ambulatory Danny HORNER Facility :[facility] Start: 01-12-2024 ambulatory Danny HORNER Facility :[facility] Start: 12-01-2023 End: 12-02-2023 ambulatory PATTI THOMAS Not Available Start: 10-28-2023 End: 10-29-2023 ambulatory Danny HORNER Facility: [place] Start: 10-28-2023 End: 10-28-2023 Patient encounter procedure Danny HORNER [facility] Start: 10-26-2023 End: 10-26-2023 ambulatory [facility] Start: 10-14-2023 End: 10-15-2023 ambulatory Danny HORNER Facility:[facility] [place] Start: 10-14-2023 End: 10-14-2023 Patient encounter procedure Danny HORNER [facility] Start: 10-12-2023 End: 10-13-2023 ambulatory Danny HORNER [facility] Start: 10-12-2023 End: 10-12-2023 Patient encounter procedure Danny HORNER [facility] Start: 09-08-2023 End: 09-09-2023 ambulatory Danny HORNER Facility:[facility] Start: 09-08-2023 End: 09-08-2023 Patient encounter procedure Danny HORNER [facility] Start: 08-04-2023 End: 08-05-2023 ambulatory Danny HORNER Facility:[facility]:[id number] Start: 07-14-2023 End: 07-15-2023 ambulatory Danny HORNER Facility:[facility] Start: 04-28-2023 End: [facility]: 02-25-2023 End: 02-26-2023 ambulatory Danny HORNER Facility:[facility] [place] Start: 02-02-2023 End: 02-03-2023 ambulatory PATTI GONG Facility:[facility] Start: 11-05-2022 End: 11-05-2022 ambulatory CASSANDRA [facility] Start: 07-08-2022 End: 07-09-[address] PATTI GONG Facility:[facility] Start: 05-27-2022 End: 05-28-[address] DOCTOR METZGER Facility:[facility] Start: 02-25-2022 End: 02-26-[address] DOCTOR METZGER Facility:[facility] Start: 02-05-2022 End: 02-05-2022 Patient encounter procedure Danny Simon SIRI [facility] Start: 09-11-2021 End: 09-11-2021 ambulatory Cirilo Ori Other [place] [facility] Other Start: 09-11-2021 Office outpatient vi sit 15 minutes Cirilo Ori [facility] Start: 01-09-2021 End: 01-10-2021 ambulatory TEN ECKERT Facility:[facility] Start: 11-29-2020 End: 11-30-2020 ambulatory PATTI THOMAS Facility:[facility] Start: 11-27-2020 End: 11-28-2020 ambulatory TEN ECKERT Facility:[facility] Procedures Date Procedure Procedure Detail Performing Clinician Start: 11-29-2020 Antibody screen PATTI THOMAS Comment on above: Performed By: #### 6 [id number] #### [facility] Sangeetha SMALL. [address] Start: 11-29-2020 ELECTROPHYS MAP 3D ADD-ON PATTI THOMAS Start: 11-29-2020 ELECTROPHYSIOLOGY EVALUATION PATTI THOMAS Start: 11-29-2020 INTRACARDIAC ECG (ICE) PATTI THOMAS Start: 11-29-2020 STIMULATION PACING HEART PATTI THOMAS Start: 11-29-2020 TX ATRIAL FIB PULM VEIN ISOL PATTI THOMAS Start: 07-25-2019 Cystoscopic removal of ureteric stent Danny TopPatch Start: 07-14-2019 Cysto w/ homium laser G mirella TopPatch Start: 06-03-2019 Extracorporeal shock wave lithotripsy of calculus of kidney Danny TopPatch Start: 05-18-2019 Ureteral stent-place ment set (physical object) Danny TopPatch Cystoscopy Danny TopPatch excision of skin cancers 1 G mirella TopPatch Comment on above: basal and squamos ce ll Tonsillectomy Danny TopPatch Immunizations Immunization Date Immunization Notes Care Provider J[facility] 07-23-2023 influenza virus vaccine, unspecified formulation Danny TopPatch [facility] 07-25-2022 influenza virus vaccine, unspecified formulation Danny TopPatch [facility] 01-29-2021 SARS-CoV-2 (COVID-19 ) mRNA BNT-162b2 vax Danny TopPatch [facility] 01-07-2021 SARS-CoV-2 (COVID-19 ) mRNA BNT-162b2 vax Danny HORNER [facility] 08-03-2020 influenza virus vaccine, unspecified formulation Danny HORNER [facility] 08-29-2019 influenza virus vaccine, unspecified formulation Danny HORNER [facility] 08-26-2018 influenza virus vaccine, unspecified formulation Danny HORNER [facility] Payers Date Payer Category Payer Medicare [id number] 1959 Unknown [id number] 1950 Unknown [id number] 2.16.8 [id number] 1950 Unknown [id number] 2.16.8 40.1.135772.3.579.2.647 1950 Unknown [id number] 2.16.8 40.1.653268.3.579.2.647 1950 Unknown [id number] 2.16.84 0.1.563259.3.579.2.593 1950 Unknown [id number] 2.16.84 0.1.000913.3.579.2.593 1950 Unknown [id number] 2.16.84 0.1.535342.3.579.2.593 1950 Unknown [id number] 2.16.84 0.1.163900.3.579.2.593 1950 Unknown [id number] 2.16.8 40.1.794014.3.579.2.727 1950 Unknown [id number] 2.16.8 40.1.136746.3.579.2.727 1950 Unknown [id number] 2.16.8 40.1.622688.3.579.2.727 1950 Unknown [id number] 2.16.8 40.1.086425.3.579.2.727 1950 Unknown [id number] 2.16.8 40.1.387684.3.579.2.727 1950 Unknown [id number] 2.16.8 40.1.522015.3.579.2.727 1950 Unknown [id number] 2.16.8 40.1.573740.3.579.2.727 1950 Unknown [id number] 2.16.8 40.1.095540.3.579.2.727 1950 Unknown [id number] 2.16.8 40.1.760624.3.579.2.727 1950 Unknown [id number] 2.16.84 0.1.092882.3.579.2.1259 Unknown [id number] Social History Date Type Detail Facility Start: 02-05-2022 End: 10-28-2023 Tobacco smoking status Never smoked tobacco (finding) [facility] Other Tobacco smoking status Never [facility] Sex Assigned At Male [facility] Other Functional Status Date Assessment Result Facility 10-28-2023 Functional Status N/A [facility] 10-02-2023 Functional Status N/A [facility] 09-08-2023 Functional Status N/A [facility] Clinical Notes 09-11-2021 to 10-28-2023 Note Date & Type Note Facility 10-28-2023 Hospital Discharge instructions Patient Education 10/28/2023 08:20:45 Benign Prostatic Hyperplasia Benign Prostatic Hyperplasia Benign prostatic hyperplasia (BPH) is an enlarged prostate gland that is caused by the normal aging process. The prostate may get bigger as a man gets older. The condition is not caused by cancer. The prostate is a walnut-sized gland that is involved in the production of semen. It is located in front of the rectum and below the bladder. The bladder stores urine. The urethra carries stored urine out of the body. An enlarged prostate can press on the urethra. This can make it harder to pass urine. The buildup of urine in the bladder can cause infection. Back pressure and infection may progress to bladder damage and kidney (renal) failure. What are the causes? This condition is part of the normal aging process. However, not all men develop problems from this condition. If the prostate enlarges away from the urethra, urine flow will not be blocked. If it enlarges toward the urethra and compresses it, there will be problems passing urine. What increases the risk? This condition is more likely to develop in men older than 50 years. What are the signs or symptoms? Symptoms of this condition include: Getting up often during the night to urinate. Needing to urinate frequently during the day. Difficulty starting urine flow. Decrease in size and strength of your urine stream. Leaking (dribbling) after urinating. Inability to pass urine. This needs immediate treatment. Inability to completely empty your bladder. Pain when you pass urine. This is more common if there is also an infection. Urinary tract infection (UTI). How is this diagnosed? This condition is diagnosed based on your medical history, a physical exam, and your symptoms. Tests will also be done, such as: A post-void bladder scan. This measures any amount of urine that may remain in your bladder after you finish urinating. A digital rectal exam. In a rectal exam, your health care provider checks your prostate by putting a lubricated, gloved finger into your rectum to feel the back of your prostate gland. This exam detects the size of your gland and any abnormal lumps or growths. An exam of your urine (urinalysis). A prostate specific antigen (PSA) screening. This is a blood test used to screen for prostate cancer. An ultrasound. This test uses sound waves to electronically produce a picture of your prostate gland. Your health care provider may refer you to a specialist in kidney and prostate diseases (urologist). How is this treated? Once symptoms begin, your health care provider will monitor your condition (active surveillance or watchful waiting). Treatment for this condition will depend on the severity of your condition. Treatment may include: Observation and yearly exams. This may be the only treatment needed if your condition and symptoms are mild. Medicines to relieve your symptoms, including: ?Medicines to shrink the prostate. ?Medicines to relax the muscle of the prostate. Surgery in severe cases. Surgery may include: ?Prostatectomy. In this procedure, the prostate tissue is removed completely through an open incision or with a laparoscope or robotics. ?Transurethral resection of the prostate (TURP). In this procedure, a tool is inserted through the opening at the tip of the penis (urethra). It is used to cut away tissue of the inner core of the prostate. The pieces are removed through the same opening of the penis. This removes the blockage. ?Transurethral incision (TUIP). In this procedure, small cuts are made in the prostate. This lessens the prostate's pressure on the urethra. ?Transurethral microwave thermotherapy (TUMT). This procedure uses microwaves to create heat. The heat destroys and removes a small amount of prostate tissue. ?Transurethral needle ablation (TUNA). This procedure uses radio frequencies to destroy and remove a small amount of prostate tissue. ?Interstitial laser coagulation (ILC). This procedure uses a laser to destroy and remove a small amount of prostate tissue. ?Transurethral electrovaporization (TUVP). This procedure uses electrodes to destroy and remove a small amount of prostate tissue. ?Prostatic urethral lift. This procedure inserts an implant to push the lobes of the prostate away from the urethra. Follow these instructions at home: Take dijt-kpi-tfwpyyg and prescription medicines only as told by your health care provider. Monitor your symptoms for any changes. Contact your health care provider with any changes. Avoid drinking large amounts of liquid before going to bed or out in public. Avoid or reduce how much caffeine or alcohol you drink. Give yourself time when you urinate. Keep all follow-up visits. This is important. Contact a health care provider if: You have unexplained back pain. Your symptoms do not get better with treatment. You develop side effects from the medicine you are taking. Your urine becomes very dark or has a bad smell. Your lower abdomen becomes distended and you have trouble passing urine. Get help right away if: You have a fever or chills. You suddenly cannot urinate. You feel light-headed or very dizzy, or you faint. There are large amounts of blood or clots in your urine. Your urinary problems become hard to manage. You develop moderate to severe low back or flank pain. The flank is the side of your body between the ribs and the hip. These symptoms may be an emergency. Get help right away. Call 911. Do not wait to see if the symptoms will go away. Do not drive yourself to the hospital. Summary Benign prostatic hyperplasia (BPH) is an enlarged prostate that is caused by the normal aging process. It is not caused by cancer. An enlarged prostate can press on the urethra. This can make it hard to pass urine. This condition is more likely to develop in men older than 50 years. Get help right away if you suddenly cannot urinate. This information is not intended to replace advice given to you by your health care provider. Make sure you discuss any questions you have with your health care provider. Document Revised: 05/14/2022 Document Reviewed: 05/14/2022 [employer] Patient Education 2022 [employer]. Follow Up Care 10/14/2023 11:06:19 With:SIRI [place], Danny Simon, URL Address: [facility] [address] [place] [address]- When: Unknown [facility] 10-26-2023 Note [place] [facility]iology Consul t Note Reason for visit: s/p PVI 10/26/23: he is here for 6-month follow-up He stopped his flecainide 04/2023 has been feeling well with no complaints of chest pain, shortness of breath, RAUSCH, palpitations, lightness 04/28/23 dr eckert HPI: Aline Tomlin is a 73 y.o. year old with past medical history of a-fib s/p ablation 11/27/2020, DCCV 01/2021, hypertension, dm2, and obstructive sleep apnea. He states he has been doing well since last visit with no palpitations. EKG 04/28/2023 SR showed normal qtc on flecainide ----- Previous HPI per Joel SALES ORDER CLERK 04/22/2022: 71 yo male PMH of HTN, DM2, HLD presents to clinic for routine f/u for persistent a fib s/p ablation, HTN, HPl, DM and KUSH Overall pt states he feels well, denied any acitvity limiting symptoms. Denied chest pain, shortness of breath, orthopnea, palpitations, lightheadedness, dizziness, or syncope. B/P log at home reviewed and overall his b/p is fairly well controlled witha couple outlyers 140-150/70's Previously he underwent PVI on 11/27/20 with findings as follows. He had Afib post ablation / blanking period (considered for 1-3months post abln), he was taken for DCCV on 01/09/21 and this converted him to SR. EKG 03/19/2021 SR 01/01/21 Afib with controlled VR. EP study: 11/27/20 LA baseline 14/6 (11)mmHg LA 600ms pacing 18/7 (11) mmHg LA 400ms pacing 2:1 block AH 86ms HV 63ms VERP 600/300ms AV Wenkebach 590ms AH jump NA AVNERP 800/390ms AERP 800/260ms POST PROCEDURE DIAGNOSIS 1. Persistent atrial fibrillation s/p PVI (WACA). 2. Atrial flutter s/p CTI ablation. 3. EP study revealing no retrograde VA conduction at 600ms pacing. 4. No inducible arrhythmia with Adenosine. 5. Normal LA filling pressures which increased with tachycardia suggestive of mild diastolic dysfunction. EKG 10/19/2020 shows atrial fibrillation 09/10/2020 shows evidence of atrial fibrillation Echocardiogram performed on 07/23/2020 revealed normal ejection fraction with a moderately dilated LA and moderately dilated RA there is mild mitral regurgitation. LIZBETH that was done before cardioversion with patient in A. fib showed EF of 35% on 07/25/2020 Lexiscan stress test 08/06/20 Normal myocardial perfusion study, Normal global left ventricular function with EF 56%, No transient ischemia dilatation and No ischemic ECG changes seen Event monitor 07/26/20 Rhythm: Atrial Fibrillation, Normal Sinus Rhythm, Sinus Bradycardia , Supraventricular Tachycardia, Premature atrial complexes, Ventricular Tachycardia, Premature ventricular complexes, Pauses, Idioventricular Rhythm Start of Examination: 07/26/2020 Recording Duration: 30 days Findings: During patient triggered events, the strips showed sinus rhythm with heart rates from 58 bpm to 114 bpm. Atrial fibrillation accounted for 69% of the total recordingsone pause of 2.8 sec on 08-21-2020 at 23:32 with underlying rhythm of atrial fibrillation.occasional premature ventricular contractions with <0.1% burden. Conclusions: Atrial Fibrillation (69%) Sinus Rhythm (26%) No ymptomatic arrhythmias Atrial Fibrillation with abbarency, sometimes with rapid ventricular esponse up to 170bpm lasting <1minute One 2.8 second pause during sleeping hours LIZBETH 07/25/20 Left Ventricle: The left ventricle is normal size. Global left ventricular systolic function is moderately reduced. The EF is 35 % visually. Leftventricular wall thickness is normal. No regional wall motion abnormality. No left ventricular hypertrophy. Right Ventricle: The right ventricle is normal in size. Left Atrium: The left atrium is normal in size. Overall Conclusions: Biphasic cardioversion was performed at 360 J, the patient was converted to sinus rhythm Of note passing the LIZBETH probe was doen after GA/intubation d/t difficulty w moderate sedation earlier this week. WithGA/intubation there still was difficulty & gentle pressure applied no bleeding however ENT vs GI eval is recommended Limited ECHO 07/26/20 Left Ventricle: The left ventricle is normal size. Global left ventricular systolic function is normal. The EF is 55 % visually. Left ventricular wall thickness is increased. No left ventricular hypertrophy. Right Ventricle: The right ventricle appears enlarged. Normal right ventricular systolic function. Left Atrium: The left atrium appears enlarged. Overall Conclusions: Due to suboptimal imaging Definity contrast was administered for opacification and better delineation of endocardial borders. PMH: Past Medical History: Diagnosis Date Atrial fibrillation (CMS/HCC) Diabetes mellitus (CMS/HCC) Hyperlipidemia Hypertension Sleep apnea Patient Active Problem List Diagnosis Other abnormal cytological findings on specimens from anus Benign prostatic hyperplasia with urinary obstruction Calculus of ureter C (more content not included)... [facility] 10-26-2023 Note Patient here for 6 m o follow up persistent afib s/p PVI, hypertension, and hyperlipidemia. Had routine labs in Jul 2023. Had a cystoscopy with Dr. Horner on 10/12/2023 and has noticed some hematuria since then. Says it's usually in the morning and then resolves. He has follow up with Dr. Horner in 2 days. Denies chest pain, SOB, palpitations, and lightheadedness/syncope. LE edema resolves by morning. Review of Systems HENT: Positive for hearing loss. Cardiovascular: Positive for leg swelling (resolves by morning). Genitourinary: Positive for hematuria (s/p cystoscopy 10/12/2023). All other systems reviewed and are negative. [facility] 10-12-2023 Note [id number] [facility] 10-12-2023 Note Rezum Post-Procedure Instructions General Recommendations 1. Drink some extra fluids (water preferred) for the first few days following the procedure. Avoid alcohol and caffeine until your irritative symptoms have resolved. 2. Take the medication as prescribed by your doctor. Usually this will include an antibiotic, pain medication or antispasmodic if needed. 3. Avoid lifting heavy objects (>10 lbs) or excessive straining as this may cause bleeding in the first week after surgery. 4. Catheter instructions: ? You will go home with a Cantrell catheter attached to a catheter bag. ? Follow your doctor?s instructions. 5. You may resume your normal diet. Common Treatment Related Symptoms The following are common treatment related signs and symptoms that you may experience after the procedure. They may also occur following removal of the catheter. After the procedure, your general urinary symptoms may temporarily worsen and then gradually improve. 1. Blood in the Urine. It is common to see some blood in the urine for 1 to 2 weeks. Limit any physical activities and drink some extra water to flush the bladder but you do not need to drink excessively or be alarmed. If you think the bleeding is excessive or you are having trouble urinating, call the number below. 2. Painful Urination. It is common to have some pain or burning with urination for 1 to 2 weeks. It should gradually improve. If it persists or starts to worsen, call the number below. 3. Slow Urinary Stream. After the procedure, swelling of the prostate occurs which may or may not make the urinary stream weaker. This should gradually improve. If you are having a lot of difficulty trying to urinate or cannot urinate, call your doctor. 4. Urinary Urgency, Frequency or Leakage. You may experience frequency and/or a strong urge to urinate while the prostate heals. Sometimes, you may find the urge is so strong that it is difficult to hold your urine and leakage can occur. 6. Blood in the Semen. This may occur up to several weeks following the procedure. The semen may have red or a ?cody? color. This condition will almost always resolve without any treatment. You should not be alarmed. Frequently Asked Questions Your Treating Doctor may override these recommendations. You should follow his/her instructions. 1. When can I resume normal physical activities? You may resume your daily activities immediately. You should limit vigorous workouts such as bike riding, running, treadmills, and heavy weight lifting for the first week. If you experience any bleeding, limit your activities and increase your water intake. 2. When can I resume sexual activity? In general, once you do not see any blood in the urine you may resume sexual activity. You may experience blood in the semen as described in the ?Common Treatment Related Symptoms? section. 3. When can I resume my medications including blood thinners? In general, you should continue with any of your regular medications but check with your doctor. Wait until your next office visit to decide when to restart any blood thinners. 4. When can I go back to work? In general, you can return to work the following day. If you are taking pain medication (narcotics) or have a physical job (lifting, construction work, etc.), check with your doctor. 5. When can I have an alcoholic beverage? You should avoid any alcohol until your irritative symptoms have resolved, typically 1-2 weeks. Alcohol is a bladder irritant and can worsen your symptoms. You should also follow the instructions regarding alcohol intake on the labels of your prescription medication. Contact your Doctor Immediately If you experience: 1. Fever (oral temperature ? 101?F), chills ? may be signs of an infection. 2. Inability to urinate. 3. Foul smelling or cloudy urine. 4. While there may be some pain related to the procedure, it is usually not severe. If you are experiencing severe pain or any condition you think may be serious, call your doctor. 5. If unable to contact your physician and you feel it is an emergency, go to the nearest emergency room or call 911. Cantrell Catheter Care, Male A Cantrell catheter is a soft, flexible tube that is placed into the bladder to drain urine. The catheter has a balloon to hold it inside the bladder. A Cantrell catheter may be inserted if: ? You leak urine or are not able to control when you urinate (urinary incontinence). ? You are not able to urinate when you need to (urinary retention). ? You had prostate surgery or surgery on the genitals. ? You have certain medical conditions, such as multiple sclerosis, dementia, or a spinal cord injury. To Prevent Infection: 1. Wash your hands with soap and water before and after handling your catheter. 2. Using mild soap and warm water on a clean washcloth; twice a day. ? Clean the area on your body closest to the catheter insertion site using a circular motion, moving away from t (more content not included)... [facility] 10-12-2023 Hospital Discharge instructions Patient Education 10/12/2023 14:48:48 - [facility] Discharge Instructions (Custom) [facility] Post-Procedure Instructions General Recommendations 1. Drink some extra fluids (water preferred) for the first few days following the procedure. Avoid alcohol and caffeine until your irritative symptoms have resolved. 2. Take the medication as prescribed by your doctor. Usually this will include an antibiotic, pain medication or antispasmodic if needed. 3. Avoid lifting heavy objects (>10 lbs) or excessive straining as this may cause bleeding in the first week after surgery. 4. Catheter instructions: You will go home with a Cantrell catheter attached to a catheter bag. Follow your doctor s instructions. 5. You may resume your normal diet. Common Treatment Related Symptoms The following are common treatment related signs and symptoms that you may experience after the procedure. They may also occur following removal of the catheter. After the procedure, your general urinary symptoms may temporarily worsen and then gradually improve. 1. Blood in the Urine. It is common to see some blood in the urine for 1 to 2 weeks. Limit any physical activities and drink some extra water to flush the bladder but you do not need to drink excessively or be alarmed. If you think the bleeding is excessive or you are having trouble urinating, call the number below. 2. Painful Urination. It is common to have some pain or burning with urination for 1 to 2 weeks. It should gradually improve. If it persists or starts to worsen, call the number below. 3. Slow Urinary Stream. After the procedure, swelling of the prostate occurs which may or may not make the urinary stream weaker. This should gradually improve. If you are having a lot of difficulty trying to urinate or cannot urinate, call your doctor. 4. Urinary Urgency, Frequency or Leakage. You may experience frequency and/or a strong urge to urinate while the prostate heals. Sometimes, you may find the urge is so strong that it is difficult to hold your urine and leakage can occur. 6. Blood in the Semen. This may occur up to several weeks following the procedure. The semen may have red or a cody color. This condition will almost always resolve without any treatment. You should not be alarmed. Frequently Asked Questions Your Treating Doctor may override these recommendations. You should follow his/her instructions. 1. When can I resume normal physical activities? You may resume your daily activities immediately. You should limit vigorous workouts such as bike riding, running, treadmills, and heavy weight lifting for the first week. If you experience any bleeding, limit your activities and increase your water intake. 2. When can I resume sexual activity? In general, once you do not see any blood in the urine you may resume sexual activity. You may experience blood in the semen as described in the Common Treatment Related Symptoms section. 3. When can I resume my medications including blood thinners? In general, you should continue with any of your regular medications but check with your doctor. Wait until your next office visit to decide when to restart any blood thinners. 4. When can I go back to work? In general, you can return to work the following day. If you are taking pain medication (narcotics) or have a physical job (lifting, construction work, etc.), check with your doctor. 5. When can I have an alcoholic beverage? You should avoid any alcohol until your irritative symptoms have resolved, typically 1-2 weeks. Alcohol is a bladder irritant and can worsen your symptoms. You should also follow the instructions regarding alcohol intake on the labels of your prescription medication. Contact your Doctor Immediately If you experience: 1. Fever (oral temperature = 101 F), chills may be signs of an infection. 2. Inability to urinate. 3. Foul smelling or cloudy urine. 4. While there may be some pain related to the procedure, it is usually not severe. If you are experiencing severe pain or any condition you think may be serious, call your doctor. 5. If unable to contact your physician and you feel it is an emergency, go to the nearest emergency room or call 911. Cantrell Catheter Care, Male A Cantrell catheter is a soft, flexible tube that is placed into the bladder to drain urine. The catheter has a balloon to hold it inside the bladder. A Cantrell catheter may be inserted if: You leak urine or are not able to control when you urinate (urinary incontinence). You are not able to urinate when you need to (urinary retention). You had prostate surgery or surgery on the genitals. You have certain medical conditions, such as multiple sclerosis, dementia, or a spinal cord injury. To Prevent Infection: 1. Wash your hands with soap and water before and after handling your catheter. 2. Using mild soap and warm water on a clean washcloth; twice a day. Clean the area on your body closest to the catheter insertion site using a circular motion, moving away from the catheter. Never wipe toward the catheter because this could sweep bacteria up into the urethra and cause infection. Remove all traces of soap. Pat the area dry with a clean towel and reposition the foreskin. No tub baths. No lotions, powders, or sprays unless directed by your physician. 3. Keep the tube secure. Do not let the tube pull or catch when you are moving around. Attach the catheter to your leg so there is no tension on the catheter. Use adhesive tape or a leg strap. If you are using adhesive tape, remove any sticky residue left behind by the previous tape you used. 4. Replace wet leg straps with dry ones. 5. Wear cotton underwear to absorb moisture and keep label drier. 6. Keep the drainage bag below the level of the bladder, but keep it off the floor. 7. Check throughout the day to be sure the catheter is working and urine is draining freely. Make sure the tubing does not become kinked or looped. 8. Do not pull on the catheter or try to remove it. Pulling could damage internal tissues. TAKING CARE OF THE DRAINAGE BAGS Emptying the Drainage Bag You must empty your drainage bag when it is ? full. 1. Wash your hands with soap and water before and after handling your catheter. 2. Keep the drainage bag below your hips, below the level of your bladder. This stops urine from going back into the tubing and into your bladder. 3. Hold the dirty bag over the toilet or a clean container. 4. Open the pour spout at the bottom of the bag and empty the urine into the toilet or container. Do not let the pour spout touch the toilet, container, or any other surface. Doing so can place bacteria on the bag, which can cause an infection. 5. Clean the pour spout with a gauze pad or cotton ball that has rubbing alcohol on it. 6. Close the pour spout. 7. Attach the bag to your leg with adhesive tape or a leg strap. Changing the Drainage Bag 1. Wash your hands with soap and water before and after handling your catheter. 2. Pinch off the rubber catheter so that urine does not spill out. 3. Disconnect the catheter tube from the drainage tube at the connection valve. Do not let the tubes touch any surface. 4. Clean the end of the catheter tube with an alcohol wipe. Use a different alcohol wipe to clean the end of the drainage tube. 5. Connect the catheter tube to the drainage tube of the clean drainage bag. 6. Attach the new bag to the leg with adhesive tape or a leg strap. Avoid attaching the new bag too tightly. 7. Place a cap on the drainage bag not in use and store in a clean towel. SEEK MEDICAL CARE IF: Your urine is cloudy or smells. Your catheter starts to leak. Your catheter falls out or is pulled out. You have pain, swelling, redness, or pus where the catheter enters the body. You have pain in the abdomen, legs, lower back, or bladder. You have a fever of 100.4 F (38 C) or higher You see pink, red, dark, coffee colored, or pus-like urine. You have nausea, vomiting, or chills. You are not feeling better in 2 to 3 days or you are feeling worse. You are not draining urine into the bag or your bladder feels full. MAKE SURE YOU: Understand the reason you have the catheter. Understand and follow these instructions to care for the catheter. Will watch your condition. Drink 6-8 glasses of water or liquids per day to keep your urine clear. Avoid Caffeinated drinks. They can irritate the bladder and cause bladder spasms. Keep your follow up appointments and call with any concerns. Follow Up Care 09/08/2023 14:49:27 With:Danny HORNER Address: [address] [place], [place] [id number]- [facility] (1) When:1 week Comments:Call for followup appointment next week. Push fluids to keep the urine clear. The plan will be for you to stay off of your Eliquis until seen in the office but if you are having no bleeding even by Thursday of this week, please give the office a call. We may restart your Eliquis sooner. [facility] 09-08-2023 Hospital Discharge instructions Patient Education 09/08/2023 14:53:41 Benign Prostatic Hyperplasia Benign Prostatic Hyperplasia Benign prostatic hyperplasia (BPH) is an enlarged prostate gland that is caused by the normal aging process. The prostate may get bigger as a man gets older. The condition is not caused by cancer. The prostate is a walnut-sized gland that is involved in the production of semen. It is located in front of the rectum and below the bladder. The bladder stores urine. The urethra carries stored urine out of the body. An enlarged prostate can press on the urethra. This can make it harder to pass urine. The buildup of urine in the bladder can cause infection. Back pressure and infection may progress to bladder damage and kidney (renal) failure. What are the causes? This condition is part of the normal aging process. However, not all men develop problems from this condition. If the prostate enlarges away from the urethra, urine flow will not be blocked. If it enlarges toward the urethra and compresses it, there will be problems passing urine. What increases the risk? This condition is more likely to develop in men older than 50 years. What are the signs or symptoms? Symptoms of this condition include: Getting up often during the night to urinate. Needing to urinate frequently during the day. Difficulty starting urine flow. Decrease in size and strength of your urine stream. Leaking (dribbling) after urinating. Inability to pass urine. This needs immediate treatment. Inability to completely empty your bladder. Pain when you pass urine. This is more common if there is also an infection. Urinary tract infection (UTI). How is this diagnosed? This condition is diagnosed based on your medical history, a physical exam, and your symptoms. Tests will also be done, such as: A post-void bladder scan. This measures any amount of urine that may remain in your bladder after you finish urinating. A digital rectal exam. In a rectal exam, your health care provider checks your prostate by putting a lubricated, gloved finger into your rectum to feel the back of your prostate gland. This exam detects the size of your gland and any abnormal lumps or growths. An exam of your urine (urinalysis). A prostate specific antigen (PSA) screening. This is a blood test used to screen for prostate cancer. An ultrasound. This test uses sound waves to electronically produce a picture of your prostate gland. Your health care provider may refer you to a specialist in kidney and prostate diseases (urologist). How is this treated? Once symptoms begin, your health care provider will monitor your condition (active surveillance or watchful waiting). Treatment for this condition will depend on the severity of your condition. Treatment may include: Observation and yearly exams. This may be the only treatment needed if your condition and symptoms are mild. Medicines to relieve your symptoms, including: ?Medicines to shrink the prostate. ?Medicines to relax the muscle of the prostate. Surgery in severe cases. Surgery may include: ?Prostatectomy. In this procedure, the prostate tissue is removed completely through an open incision or with a laparoscope or robotics. ?Transurethral resection of the prostate (TURP). In this procedure, a tool is inserted through the opening at the tip of the penis (urethra). It is used to cut away tissue of the inner core of the prostate. The pieces are removed through the same opening of the penis. This removes the blockage. ?Transurethral incision (TUIP). In this procedure, small cuts are made in the prostate. This lessens the prostate's pressure on the urethra. ?Transurethral microwave thermotherapy (TUMT). This procedure uses microwaves to create heat. The heat destroys and removes a small amount of prostate tissue. ?Transurethral needle ablation (TUNA). This procedure uses radio frequencies to destroy and remove a small amount of prostate tissue. ?Interstitial laser coagulation (ILC). This procedure uses a laser to destroy and remove a small amount of prostate tissue. ?Transurethral electrovaporization (TUVP). This procedure uses electrodes to destroy and remove a small amount of prostate tissue. ?Prostatic urethral lift. This procedure inserts an implant to push the lobes of the prostate away from the urethra. Follow these instructions at home: Take slxv-apk-hrangoz and prescription medicines only as told by your health care provider. Monitor your symptoms for any changes. Contact your health care provider with any changes. Avoid drinking large amounts of liquid before going to bed or out in public. Avoid or reduce how much caffeine or alcohol you drink. Give yourself time when you urinate. Keep all follow-up visits. This is important. Contact a health care provider if: You have unexplained back pain. Your symptoms do not get better with treatment. You develop side effects from the medicine you are taking. Your urine becomes very dark or has a bad smell. Your lower abdomen becomes distended and you have trouble passing urine. Get help right away if: You have a fever or chills. You suddenly cannot urinate. You feel light-headed or very dizzy, or you faint. There are large amounts of blood or clots in your urine. Your urinary problems become hard to manage. You develop moderate to severe low back or flank pain. The flank is the side of your body between the ribs and the hip. These symptoms may be an emergency. Get help right away. Call 911. Do not wait to see if the symptoms will go away. Do not drive yourself to the hospital. Summary Benign prostatic hyperplasia (BPH) is an enlarged prostate that is caused by the normal aging process. It is not caused by cancer. An enlarged prostate can press on the urethra. This can make it hard to pass urine. This condition is more likely to develop in men older than 50 years. Get help right away if you suddenly cannot urinate. This information is not intended to replace advice given to you by your health care provider. Make sure you discuss any questions you have with your health care provider. Document Revised: 05/14/2022 Document Reviewed: 05/14/2022 [employer] Patient Education 2022 [employer]. Follow Up Care 08/12/2023 12:59:54 With:SIRI COLORADO, Danny Simon, URL Address: [address] [place] [id number] When: Unknown Comments:Sched [facility]an 07-14-2023 Note Urology Cystoscopy Cystoscopy is a procedure that is used to help diagnose and sometimes treat conditions that affect the lower urinary tract. The lower urinary tract includes the bladder and the urethra. The urethra is the tube that drains urine from the bladder. Cystoscopy is done using a thin, tube-shaped instrument with a light and camera at the end (cystoscope). The cystoscope may be hard or flexible, depending on the goal of the procedure. The cystoscope is inserted through the urethra, into the bladder. Cystoscopy may be recommended if you have: ? Urinary tract infections that keep coming back. ? Blood in the urine (hematuria). ? An inability to control when you urinate (urinary incontinence) or an overactive bladder. ? Unusual cells found in a urine sample. ? A blockage in the urethra, such as a urinary stone. ? Painful urination. ? An abnormality in the bladder found during an intravenous pyelogram (IVP) or CT scan. Cystoscopy may also be done to remove a sample of tissue to be examined under a microscope (biopsy). Tell a health care provider about: ? Any allergies you have. ? All medicines you are taking, including vitamins, herbs, eye drops, creams, and oamu-oex-ivvcxlx medicines. ? Any problems you or family members have had with anesthetic medicines. ? Any blood disorders you have. ? Any surgeries you have had. ? Any medical conditions you have. ? Whether you are or may be . What are the risks? Generally, this is a safe procedure. However, problems may occur, including: ? Infection. ? Bleeding. ? Allergic reactions to medicines. ? Damage to other structures or organs. What happens before the procedure? Medicines Ask your health care provider about: ? Changing or stopping your regular medicines. This is especially important if you are taking diabetes medicines or blood thinners. ? Taking medicines such as aspirin and ibuprofen. These medicines can thin your blood. Do not take these medicines unless your health care provider tells you to take them. ? Taking pmjg-sgj-mhefwof medicines, vitamins, herbs, and supplements. Tests You may have an exam or testing, such as: ? X-rays of the bladder, urethra, or kidneys. ? CT scan of the abdomen or pelvis. ? Urine tests to check for signs of infection. General instructions ? Follow instructions from your health care provider about eating or drinking restrictions. ? Ask your health care provider what steps will be taken to help prevent infection. These steps may include: ? Washing skin with a germ-killing soap. ? Taking antibiotic medicine. ? Plan to have a responsible adult take you home from the hospital or clinic. What happens during the procedure? ? You will be given one or more of the following: ? A medicine to help you relax (sedative). ? A medicine to numb the area (local anesthetic). ? The area around the opening of your urethra will be cleaned. ? The cystoscope will be passed through your urethra into your bladder. ? Germ-free (sterile) fluid will flow through the cystoscope to fill your bladder. The fluid will stretch your bladder so that your health care provider can clearly examine your bladder odell. ? Your doctor will look at the urethra and bladder. Your doctor may take a biopsy or remove stones. ? The cystoscope will be removed, and your bladder will be emptied. The procedure may vary among health care providers and hospitals. What can I expect after the procedure? After the procedure, it is common to have: ? Some soreness or pain in your abdomen and urethra. ? Urinary symptoms. These include: ? Mild pain or burning when you urinate. Pain should stop within a few minutes after you urinate. This may last for up to 1 week. ? A small amount of blood in your urine for several days. ? Feeling like you need to urinate but producing only a small amount of urine. Follow these instructions at home: Medicines ? Take iebi-fbw-zslxswh and prescription medicines only as told by your health care provider. ? If you were prescribed an antibiotic medicine, take it as told by your health care provider. Do not stop taking the antibiotic even if you start to feel better. General instructions ? Return to your normal activities as told by your health care provider. Ask your health care provider what activities are safe for you. ? If you were given a sedative during the procedure, it can affect you for several hours. Do not drive or operate machinery until your health care provider says that it is safe. ? Watch for any blood in your urine. If the amount of blood in your urine increases, call your health care provider. ? Follow instructions from your health care provider about eating or drinking restrictions. ? If a tissue sample was removed for testing (biopsy) during your procedure, it is up to you to get your test results. Ask your health care provider, or the department th (more content not included)... [facility] 04-28-2023 Note [place] [facility] Consul t Note Reason for visit: s/p PVI HPI: Aline Tomlin is a 72 y.o. year old with past medical history of a-fib s/p ablation 11/27/2020, DCCV 01/2021, hypertension, dm2, and obstructive sleep apnea. He states he has been doing well since last visit with no palpitations. EKG 04/28/2023 SR showed normal qtc on flecainide ----- Previous HPI per Joel [facility] 04/22/2022: 71 yo male PMH of HTN, DM2, HLD presents to clinic for routine f/u for persistent a fib s/p ablation, HTN, HPl, DM and KUSH Overall pt states he feels well, denied any acitvity limiting symptoms. Denied chest pain, shortness of breath, orthopnea, palpitations, lightheadedness, dizziness, or syncope. B/P log at home reviewed and overall his b/p is fairly well controlled witha couple outlyers 140-150/70's Previously he underwent PVI on 11/27/20 with findings as follows. He had Afib post ablation / blanking period (considered for 1-3months post abln), he was taken for DCCV on 01/09/21 and this converted him to SR. EKG 03/19/2021 SR 01/01/21 Afib with controlled VR. EP study: 11/27/20 LA baseline 14/6 (11)mmHg LA 600ms pacing 18/7 (11) mmHg LA 400ms pacing 2:1 block AH 86ms HV 63ms VERP 600/300ms AV Wenkebach 590ms AH jump NA AVNERP 800/390ms AERP 800/260ms POST PROCEDURE DIAGNOSIS 1. Persistent atrial fibrillation s/p PVI (WACA). 2. Atrial flutter s/p CTI ablation. 3. EP study revealing no retrograde VA conduction at 600ms pacing. 4. No inducible arrhythmia with Adenosine. 5. Normal LA filling pressures which increased with tachycardia suggestive of mild diastolic dysfunction. EKG 10/19/2020 shows atrial fibrillation 09/10/2020 shows evidence of atrial fibrillation Echocardiogram performed on 07/23/2020 revealed normal ejection fraction with a moderately dilated LA and moderately dilated RA there is mild mitral regurgitation. LIZBETH that was done before cardioversion with patient in A. fib showed EF of 35% on 07/25/2020 Lexiscan stress test 08/06/20 Normal myocardial perfusion study, Normal global left ventricular function with EF 56%, No transient ischemia dilatation and No ischemic ECG changes seen Event monitor 07/26/20 Rhythm: Atrial Fibrillation, Normal Sinus Rhythm, Sinus Bradycardia , Supraventricular Tachycardia, Premature atrial complexes, Ventricular Tachycardia, Premature ventricular complexes, Pauses, Idioventricular Rhythm Start of Examination: 07/26/2020 Recording Duration: 30 days Findings: During patient triggered events, the strips showed sinus rhythm with heart rates from 58 bpm to 114 bpm. Atrial fibrillation accounted for 69% of the total recordingsone pause of 2.8 sec on 08-21-2020 at 23:32 with underlying rhythm of atrial fibrillation.occasional premature ventricular contractions with <0.1% burden. Conclusions: Atrial Fibrillation (69%) Sinus Rhythm (26%) No ymptomatic arrhythmias Atrial Fibrillation with abbarency, sometimes with rapid ventricular esponse up to 170bpm lasting <1minute One 2.8 second pause during sleeping hours LIZBETH 07/25/20 Left Ventricle: The left ventricle is normal size. Global left ventricular systolic function is moderately reduced. The EF is 35 % visually. Leftventricular wall thickness is normal. No regional wall motion abnormality. No left ventricular hypertrophy. Right Ventricle: The right ventricle is normal in size. Left Atrium: The left atrium is normal in size. Overall Conclusions: Biphasic cardioversion was performed at 360 J, the patient was converted to sinus rhythm Of note passing the LIZBETH probe was doen after GA/intubation d/t difficulty w moderate sedation earlier this week. WithGA/intubation there still was difficulty & gentle pressure applied no bleeding however ENT vs GI eval is recommended Limited ECHO 07/26/20 Left Ventricle: The left ventricle is normal size. Global left ventricular systolic function is normal. The EF is 55 % visually. Left ventricular wall thickness is increased. No left ventricular hypertrophy. Right Ventricle: The right ventricle appears enlarged. Normal right ventricular systolic function. Left Atrium: The left atrium appears enlarged. Overall Conclusions: Due to suboptimal imaging Definity contrast was administered for opacification and better delineation of endocardial borders. PMH: Past Medical History: Diagnosis Date Atrial fibrillation (CMS/HCC) Diabetes mellitus (CMS/HCC) Hyperlipidemia Hypertension Sleep apnea Patient Active Problem List Diagnosis Other abnormal cytological findings on specimens from anus Benign prostatic hyperplasia with urinary obstruction Calculus of ureter Cortical age-related cataract of both eyes Diabetes mellitus (CMS/HCC) Diverticulitis of colon Enlarged prostate Essential hypertension Family history of nephrolithiasis Flank pain Gastroesophageal (more content not included)... [facility] 11-05-2022 Note Lipid abnormalities are stable, continue crestor -LDL 98 on 08/08. -continue zocor, may consider redraw of lipids on follow to assess further interventions [facility] 11-05-2022 Note -Sr today -continue flecainide, eliquis, metoprolol -will discuss plan of flecainide on follow up with Dr. Eckert -[id number]: 3 [facility] 11-05-2022 Note Hypertension is stab le per home readings but he will send us home readings to verify -continue fosinopril, norvasc, metoprolol [facility] 11-05-2022 Note Patient here for 6 m o follow up persistent afib, hypertension, and hyperlipidemia. Had labs in May and Jun 2022. He is scheduled for colonoscopy tomorrow. Denies chest pain, SOB, palpitations, and bleeding on Eliquis. Still compliant with cpap therapy. Says he checks his BP daily at home and it averages around 130/70. Review of Systems HENT: Positive for hearing loss. All other systems reviewed and are negative. [facility] 11-05-2022 Note [place] [facility] Consul t Note Reason for visit: HPI: Aline Tomlin is a 72 y.o. year old with past medical history of a-fib s/p ablation 11/27/2020, DCCV 01/2021, hypertension, dm2, and obstructive sleep apnea. He states he has been doing well since last visit with no palpitations. His BP at home he states is generally lower around 130-140. He will send us his home readings to verify as the last two visits he has been hypertensive but per last visit note he had his home readings reviewed which were in normal range. EKG showed normal qtc on flecainide (468) which he has been tolerating. He is holding his eliquis today per his GI doctor for a colonoscopy, the office did not request clearance or request for holding medication. Review of Systems Constitutional: Negative for malaise/fatigue. Eyes: Negative for blurred vision. Cardiovascular: Negative for chest pain, dyspnea on exertion, leg swelling, near-syncope, orthopnea and palpitations. Respiratory: Negative for shortness of breath and sleep disturbances due to breathing. Neurological: Negative for dizziness, headaches and light-headedness. All other systems reviewed and are negative. ----- Previous HPI per Joel [facility]ANKENSH[facility] 04/22/2022: 71 yo male presents to clinic for routine f/u for persistent a fib s/p ablation, HTN, HPl, DM and KUSH Overall pt states he feels well, denied any acitvity limiting symptoms. Denied chest pain, shortness of breath, orthopnea, palpitations, lightheadedness, dizziness, or syncope. B/P log at home reviewed and overall his b/p is fairly well controlled witha couple outlyers 140-150/70's Previous HPI per Dr Eckert cc: Afib Patient is doing well and is maintaining sinus rhythm he has continued to exercise and lost weight and is at about 230lbs now. He is currently on flecainide and is tolerating it well. No new issues to report. Previously he underwent PVI on 11/27/20 with findings as follows. He had Afib post ablation / blanking period (considered for 1-3months post abln), he was taken for DCCV on 01/09/21 and this converted him to SR. EKG 03/19/2021 SR 01/01/21 Afib with controlled VR. EP study: 11/27/20 LA baseline 14/6 (11)mmHg LA 600ms pacing 18/7 (11) mmHg LA 400ms pacing 2:1 block AH 86ms HV 63ms VERP 600/300ms AV Wenkebach 590ms AH jump NA AVNERP 800/390ms AERP 800/260ms POST PROCEDURE DIAGNOSIS 1. Persistent atrial fibrillation s/p PVI (WACA). 2. Atrial flutter s/p CTI ablation. 3. EP study revealing no retrograde VA conduction at 600ms pacing. 4. No inducible arrhythmia with Adenosine. 5. Normal LA filling pressures which increased with tachycardia suggestive of mild diastolic dysfunction. HPI 69-year-old male with PMH of HTN, DM2, HLD who came to the hospital after passing out while in the [place]. At the time of admission, the patient's heart rate was 60. The patient had a run of atrial flutter at the time of admission, which later on converted to atrial fibrillation with rapid ventricular rate. The patient's heart rate did not drop less than 40 during hospitalization. Heparin was started due to CHADS-VASc score of 2. The patient underwent successful elective cardioversion after undergoing transesophageal echocardiogram to rule out left atrial appendage or left atrial thrombus. The patient's HCTZ was discontinued due to significant hypokalemia with potassium 2.8 and 2.9 along with hypomagnesemia and metoprolol was resumed. The patient has been tolerating 25 mg b.i.d. metoprolol without bradycardia for last 24 hours. The patient has been normal sinus rhythm post elective cardioversion and IV heparin has been changed to Eliquis. The patient remains chest pain free without any shortness of breath or dizziness or lightheadedness during hospitalization. Denies CP, SOB, RAUSCH, palpitations, dizziness/LH, orthopnea, PND, LE edema. He recently underwent sleep study which found severe KUSH EKG 10/19/2020 shows atrial fibrillation 09/10/2020 shows evidence of atrial fibrillation Echocardiogram performed on 07/23/2020 revealed normal ejection fraction with a moderately dilated LA and moderately dilated RA there is mild mitral regurgitation. LIZBETH that was done before cardioversion with patient in A. fib showed EF of 35% on 07/25/2020 Lexiscan stress test 08/06/20 Normal myocardial perfusion study, Normal global left ventricular function with EF 56%, No transient ischemia dilatation and No ischemic ECG changes seen Event monitor 07/26/20 Rhythm: Atrial Fibrillation, Normal Sinus Rhythm, Sinus Bradycardia , Supraventricular Tachycardia, Premature atrial complexes, Ventricular Tachycardia, Premature ventricular complexes, Pauses, Idioventricular Rhythm Start of Examination: 07/26/2020 Recording Duration: 30 days Findings: During patient triggered events, the (more content not included)... [facility] 02-05-2022 Hospital Discharge instructions Patient Education 02/05/2022 13:20:08 Benign Prostatic Hyperplasia Benign Prostatic Hyperplasia Benign prostatic hyperplasia (BPH) is an enlarged prostate gland that is caused by the normal aging process and not by cancer. The prostate is a walnut-sized gland that is involved in the production of semen. It is located in front of the rectum and below the bladder. The bladder stores urine and the urethra is the tube that carries the urine out of the body. The prostate may get bigger as a man gets older. An enlarged prostate can press on the urethra. This can make it harder to pass urine. The build-up of urine in the bladder can cause infection. Back pressure and infection may progress to bladder damage and kidney (renal) failure. What are the causes? This condition is part of a normal aging process. However, not all men develop problems from this condition. If the prostate enlarges away from the urethra, urine flow will not be blocked. If it enlarges toward the urethra and compresses it, there will be problems passing urine. What increases the risk? This condition is more likely to develop in men over the age of 50 years. What are the signs or symptoms? Symptoms of this condition include: Getting up often during the night to urinate. Needing to urinate frequently during the day. Difficulty starting urine flow. Decrease in size and strength of your urine stream. Leaking (dribbling) after urinating. Inability to pass urine. This needs immediate treatment. Inability to completely empty your bladder. Pain when you pass urine. This is more common if there is also an infection. Urinary tract infection (UTI). How is this diagnosed? This condition is diagnosed based on your medical history, a physical exam, and your symptoms. Tests will also be done, such as: A post-void bladder scan. This measures any amount of urine that may remain in your bladder after you finish urinating. A digital rectal exam. In a rectal exam, your health care provider checks your prostate by putting a lubricated, gloved finger into your rectum to feel the back of your prostate gland. This exam detects the size of your gland and any abnormal lumps or growths. An exam of your urine (urinalysis). A prostate specific antigen (PSA) screening. This is a blood test used to screen for prostate cancer. An ultrasound. This test uses sound waves to electronically produce a picture of your prostate gland. Your health care provider may refer you to a specialist in kidney and prostate diseases (urologist). How is this treated? Once symptoms begin, your health care provider will monitor your condition (active surveillance or watchful waiting). Treatment for this condition will depend on the severity of your condition. Treatment may include: Observation and yearly exams. This may be the only treatment needed if your condition and symptoms are mild. Medicines to relieve your symptoms, including: ?Medicines to shrink the prostate. ?Medicines to relax the muscle of the prostate. Surgery in severe cases. Surgery may include: ?Prostatectomy. In this procedure, the prostate tissue is removed completely through an open incision or with a laparoscope or robotics. ?Transurethral resection of the prostate (TURP). In this procedure, a tool is inserted through the opening at the tip of the penis (urethra). It is used to cut away tissue of the inner core of the prostate. The pieces are removed through the same opening of the penis. This removes the blockage. ?Transurethral incision (TUIP). In this procedure, small cuts are made in the prostate. This lessens the prostate's pressure on the urethra. ?Transurethral microwave thermotherapy (TUMT). This procedure uses microwaves to create heat. The heat destroys and removes a small amount of prostate tissue. ?Transurethral needle ablation (TUNA). This procedure uses radio frequencies to destroy and remove a small amount of prostate tissue. ?Interstitial laser coagulation (ILC). This procedure uses a laser to destroy and remove a small amount of prostate tissue. ?Transurethral electrovaporization (TUVP). This procedure uses electrodes to destroy and remove a small amount of prostate tissue. ?Prostatic urethral lift. This procedure inserts an implant to push the lobes of the prostate away from the urethra. Follow these instructions at home: Take dpga-lxt-xqfsnmg and prescription medicines only as told by your health care provider. Monitor your symptoms for any changes. Contact your health care provider with any changes. Avoid drinking large amounts of liquid before going to bed or out in public. Avoid or reduce how much caffeine or alcohol you drink. Give yourself time when you urinate. Keep all follow-up visits as told by your health care provider. This is important. Contact a health care provider if: You have unexplained back pain. Your symptoms do not get better with treatment. You develop side effects from the medicine you are taking. Your urine becomes very dark or has a bad smell. Your lower abdomen becomes distended and you have trouble passing your urine. Get help right away if: You have a fever or chills. You suddenly cannot urinate. You feel lightheaded, or very dizzy, or you faint. There are large amounts of blood or clots in the urine. Your urinary problems become hard to manage. You develop moderate to severe low back or flank pain. The flank is the side of your body between the ribs and the hip. These symptoms may represent a serious problem that is an emergency. Do not wait to see if the symptoms will go away. Get medical help right away. Call your local emergency services (911 in the [place] Do not drive yourself to the hospital. Summary Benign prostatic hyperplasia (BPH) is an enlarged prostate that is caused by the normal aging process and not by cancer. An enlarged prostate can press on the urethra. This can make it hard to pass urine. This condition is part of a normal aging process and is more likely to develop in men over the age of 50 years. Get help right away if you suddenly cannot urinate. This information is not intended to replace advice given to you by your health care provider. Make sure you discuss any questions you have with your health care provider. Document Released: 10/26/2006 Document Revised: 09/20/2019 Document Reviewed: 11/30/2017 [employer] Patient Education 2020 [employer]. 02/05/2022 13:20:05 Calorie Counting for Weight Loss Calorie Counting for Weight Loss Calories are units of energy. Your body needs a certain amount of calories from food to keep you going throughout the day. When you eat more calories than your body needs, your body stores the extra calories as fat. When you eat fewer calories than your body needs, your body benavides fat to get the energy it needs. Calorie counting means keeping track of how many calories you eat and drink each day. Calorie counting can be helpful if you need to lose weight. If you make sure to eat fewer calories than your body needs, you should lose weight. Ask your health care provider what a healthy weight is for you. For calorie counting to work, you will need to eat the right number of calories in a day in order to lose a healthy amount of weight per week. A dietitian can help you determine how many calories you need in a day and will give you suggestions on how to reach your calorie goal. A healthy amount of weight to lose per week is usually 1 2 lb (0.5 0.9 kg). This usually means that your daily calorie intake should be reduced by 500 750 calories. Eating 1,200 1,500 calories per day can help most women lose weight. Eating 1,500 1,800 calories per day can help most men lose weight. What is my plan? My goal is to have calories per day. If I have this many calories per day, I should lose around pounds per week. What do I need to know about calorie counting? In order to meet your daily calorie goal, you will need to: Find out how many calories are in each food you would like to eat. Try to do this before you eat. Decide how much of the food you plan to eat. Write down what you ate and how many calories it had. Doing this is called keeping a food log. To successfully lose weight, it is important to balance calorie counting with a healthy lifestyle that includes regular activity. Aim for 150 minutes of moderate exercise (such as walking) or 75 minutes of vigorous exercise (such as running) each week. Where do I find calorie information? The number of calories in a food can be found on a Nutrition Facts label. If a food does not have a Nutrition Facts label, try to look up the calories online or ask your dietitian for help. Remember that calories are listed per serving. If you choose to have more than one serving of a food, you will have to multiply the calories per serving by the amount of servings you plan to eat. For example, the label on a package of bread might say that a serving size is 1 slice and that there are 90 calories in a serving. If you eat 1 slice, you will have eaten 90 calories. If you eat 2 slices, you will have eaten 180 calories. How do I keep a food log? Immediately after each meal, record the following information in your food log: What you ate. Don't forget to include toppings, sauces, and other extras on the food. How much you ate. This can be measured in cups, ounces, or number of items. How many calories each food and drink had. The total number of calories in the meal. Keep your food log near you, such as in a small notebook in your pocket, or use a mobile ramon or website. Some programs will calculate calories for you and show you how many calories you have left for the day to meet your goal. What are some calorie counting tips? Use your calories on foods and drinks that will fill you up and not leave you hungry: ?Some examples of foods that fill you up are nuts and nut butters, vegetables, lean proteins, and high-fiber foods like whole grains. High-fiber foods are foods with more than 5 g fiber per serving. ?Drinks such as sodas, specialty coffee drinks, alcohol, and juices have a lot of calories, yet do not fill you up. Eat nutritious foods and avoid empty calories. Empty calories are calories you get from foods or beverages that do not have many vitamins or protein, such as candy, sweets, and soda. It is better to have a nutritious high-calorie food (such as an avocado) than a food with few nutrients (such as a bag of chips). Know how many calories are in the foods you eat most often. This will help you calculate calorie counts faster. Pay attention to calories in drinks. Low-calorie drinks include water and unsweetened drinks. Pay attention to nutrition labels for low fat or fat free foods. These foods sometimes have the same amount of calories or more calories than the full fat versions. They also often have added sugar, starch, or salt, to make up for flavor that was removed with the fat. Find a way of tracking calories that works for you. Get creative. Try different apps or programs if writing down calories does not work for you. What are some portion control tips? Know how many calories are in a serving. This will help you know how many servings of a certain food you can have. Use a measuring cup to measure serving sizes. You could also try weighing out portions on a kitchen scale. With time, you will be able to estimate serving sizes for some foods. Take some time to put servings of different foods on your favorite plates, bowls, and cups so you know what a serving looks like. Try not to eat straight from a bag or box. Doing this can lead to overeating. Put the amount you would like to eat in a cup or on a plate to make sure you are eating the right portion. Use smaller plates, glasses, and bowls to prevent overeating. Try not to multitask (for example, watch TV or use your computer) while eating. If it is time to eat, sit down at a table and enjoy your food. This will help you to know when you are full. It will also help you to be aware of what you are eating and how much you are eating. What are tips for following this plan? Reading food labels Check the calorie count compared to the serving size. The serving size may be smaller than what you are used to eating. Check the source of the calories. Make sure the food you are eating is high in vitamins and protein and low in saturated and trans fats. Shopping Read nutrition labels while you shop. This will help you make healthy decisions before you decide to purchase your food. Make a grocery list and stick to it. Cooking Try to cook your favorite foods in a healthier way. For example, try baking instead of frying. Use low-fat dairy products. Meal planning Use more fruits and vegetables. Half of your plate should be fruits and vegetables. Include lean proteins like poultry and fish. How do I count calories when eating out? Ask for smaller portion sizes. Consider sharing an entree and sides instead of getting your own entree. If you get your own entree, eat only half. Ask for a box at the beginning of your meal and put the rest of your entree in it so you are not tempted to eat it. If calories are listed on the menu, choose the lower calorie options. Choose dishes that include vegetables, fruits, whole grains, low-fat dairy products, and lean protein. Choose items that are boiled, broiled, grilled, or steamed. Stay away from items that are buttered, battered, fried, or served with cream sauce. Items labeled crispy are usually fried, unless stated otherwise. Choose water, low-fat milk, unsweetened iced tea, or other drinks without added sugar. If you want an alcoholic beverage, choose a lower calorie option such as a glass of wine or light beer. Ask for dressings, sauces, and syrups on the side. These are usually high in calories, so you should limit the amount you eat. If you want a salad, choose a garden salad and ask for grilled meats. Avoid extra toppings like avila, cheese, or fried items. Ask for the dressing on the side, or ask for olive oil and vinegar or lemon to use as dressing. Estimate how many servings of a food you are given. For example, a serving of cooked rice is cup or about the size of half a baseball. Knowing serving sizes will help you be aware of how much food you are eating at restaurants. The list below tells you how big or small some common portion sizes are based on everyday objects: ?1 oz 4 stacked dice. ?3 oz 1 deck of cards. ?1 tsp 1 . ?1 Tbsp a ping-pong ball. ?2 Tbsp 1 ping-pong ball. ? cup baseball. ?1 cup 1 baseball. Summary Calorie counting means keeping track of how many calories you eat and drink each day. If you eat fewer calories than your body needs, you should lose weight. A healthy amount of weight to lose per week is usually 1 2 lb (0.5 0.9 kg). This usually means reducing your daily calorie intake by 500 750 calories. The number of calories in a food can be found on a Nutrition Facts label. If a food does not have a Nutrition Facts label, try to look up the calories online or ask your dietitian for help. Use your calories on foods and drinks that will fill you up, and not on foods and drinks that will leave you hungry. Use smaller plates, glasses, and bowls to prevent overeating. This information is not intended to replace advice given to you by your health care provider. Make sure you discuss any questions you have with your health care provider. Document Released: 10/26/2006 Document Revised: 07/15/2019 Document Reviewed: 09/25/2017 [employer] Patient Education 2020 [employer]. 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 He appears to be euvolemic. I have advised him to monitor blood pressure at home and call office if stays above 140/90 mmHg. Sep, SHAMA (acute kidney injury) (ICD-10 - N17.9) He likely had a SHAMA either due to the obstructive uropathy or ATN . His renal function is back to normal. I have advised him adequately hydrate himself. Sep, Diabetes mellitus with chronic kidney disease (ICD-10 - E11.22) His blood sugars are within acceptable range. Currently takes Metformin.I would recommend to stop the Metformin if the GFR drops below 30 mm/min. I have advised him continue to follow with PCP for DM management. Continue fosinopril for renal protection. Sep, Proteinuria (ICD-10 - R80.9) He has transient proteinuria likely due to the diabetic kidney disease. He has unremarkanble w/u paraproteinemia or hepatitis MPGN or lupus. He is not vaccinated for hepatitis B. I have advised him to consider hepatitis B vaccine. Sep, Nephrolithiasis (ICD-10 - N20.0) He has a history of kidney stones. He follows with Dr. Horner. Continue to follow with Dr. Horner.I have advised him to adequately hydrate himself. Sep, Anemia (ICD-10 - D64.9) He has anemia but denies any rectal bleeding or melena. I would recommend to follow with the PCP for anemia work-up. Sep, CKD (chronic kidney disease) stage 2, GFR 60-89 ml/min (ICD-10 - N18.2) He has a mild CKD likely due to longstanding DM and HTN. I discussed with him the importance of good DM HTN control to surround the progression of CKD. [facility] Other Evaluation + Plan note Future Appointments Appointment Date:02/11/2023 11:15:00 AM Scheduled Provider:Danny HORNER MD Location:[facility] Appointment Type:URO Office Visit Diagnostic Tests Pending * PSA Free & Total 02/05/22 [facility] Evaluation + Plan note Future Appointments Appointment Date:10/12/2023 02:00:00 PM Scheduled Provider: Location:[facility] Appointment Type:Urology FT Appointment Date:01/12/2024 09:45:00 AM Scheduled Provider:Danny HORNER MD Location:[facility] Appointment Type:URO Office Visit [facility] Evaluation + Plan note Future Appointments Appointment Date:10/14/2023 10:30:00 AM Scheduled Provider: Location:[facility] Appointment Type:URO Nurse Visit Appointment Date:01/12/2024 09:45:00 AM Scheduled Provider:Danny HORNER MD [facility] Appointment Date:10/28/2023 08:00:00 AM Scheduled Provider:D[facility] MD [facility] App[facility] Type:URO Office Visit Appointment Date:01/12/2024 09:45:00 AM Scheduled Provider:Danny HORNER MD [facility] App[facility] Type:URO Office Visit [facility] Evaluation + Plan note Future Appointments Appointment Date:03/02/2024 09:15:00 AM Scheduled Provider:Danny HORNER MD Location:[facility] Appointment Type:URO Office Visit [facility] History general Narrative - Reported* Type Description Date Medical History HYPERTENSION Medical History HYPERLIPIDEMIA Medical History OBSTRUCTIVE SLEEP APNEA Medical History 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 Medical History DIABETES MELLITUS WITH NEPHROPAT HY Medical History THIRD DEGREE HEART BLOCK Medical History PERSISTENT ATRIAL FIBRILLATION Medical History GASTROESOPHAGEAL REF LUX DISEASE WITH ESOPHAGITIS WITHOUT HEMORRHAGE Medical History PROTEINURIA Medical History CATARACTS Surgical History TONSILLECTOMY Surgical History BASAL CELL CARCINOMA RIGHT SIDE OF NOSE 11/2008 Surgical History 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 Surgical History KIDNEY STONE WITH URETHRAL STEN T PLACEMENT 04/2019 Surgical History ELECTROSHOCK WAVE LITHOTRIPSY L EFT KIDNEY 06/03/2019 Surgical History LASER STONE EXTRACTI ON AND STENT PLACEMENT LEFT KIDNEY 07/14/2019 Surgical History CYSTOSCOPY WITH DR HORNER 07/02/20 Surgical History CARDIOVERSION 07/24/2020 Surgical History CARDIOVERSION UNDER GENERAL 07/10 Surgical History SKIN LESION REMOVED 09/27/2020 Surgical History AFIB ABLATION WITH EPS 1 Surgical History CARDIO VERSION 01/09/2021 Hospitalization History URETHRAL STENT PLACEMENT 05/08/2019 Hospitalization History A-FIB 0 Hospitalization History A-FIB WITH EPS 1 [facility] Other Hospital course Narrative No data available for this section [facility] Hospital Discharge instructions No data available for this section [facility] Progress note No data available for this section [facility] Summary Purpose Family History No Family History Records FoundNo Family History Records FoundNo Family History Records Found No data available for this section No data available for this section No data available for this section No Family History Records Found No data available for this section No Family History Records FoundNo Family History Records Found Advance Directives No Advanced Directives Records FoundNo Advanced Directives Records FoundNo Advanced Directives Records FoundNo Advanced Directives Records FoundNo Advanced Directives Records FoundNo Advanced Directives Records Found Additional Source Comments (unrecognized sect ion and content) No Status Records FoundNo Status Records FoundNo Status Records FoundNo Status Records FoundNo Status Records FoundNo Status Records Found INFORMATION SOURCE (unrecogn ized section and content) DATE CREATED AUTHOR 09/16/2019 [facility] DATE CREATED AUTHOR AUTHOR'S ORGANIZ ATION 11/17/2021 [facility] DATE CREATED AUTHOR AUTHOR'S ORGANIZ ATION 02/05/2023 [facility] DATE CREATED AUTHOR AUTHOR'S ORGANIZ ATION 10/27/[address] [facility] DATE CREATED AUTHOR AUTHOR'S ORGANIZ ATION 10/30/2023 [facility] DATE CREATED AUTHOR AUTHOR'S ORGANIZ ATION 12/06/2023 [facility] EPIC REASON FOR VISIT (unrecogniz ed section and content) SHAMA Patient Care team informatio n (unrecognized section and content) Personnel Name: PATTI THOMAS DO Address: Address: [address] [place] [address] Personnel Name: PATTI THOMAS DO Address: Address: [address] [place] [address] Personnel Name: PATTI THOMAS DO Address: Address: [address] [place] [address] Personnel Name: PATTI THOMAS DO Address: Address: [address] [place] [address] FOR RECORDS PERTAINING TO PATIENTS WHO ARE OR HAVE BEEN ENROLLED IN A CHEMICAL DEPENDENCY/SUBSTANCEABUSE PROGRAM, SOME INFORMATION MAY BE OMITTED. This clinical summary was aggregated from multiple sources. Caution should be exercised in using it in the provision of clinical care. This summary normalizes information from multiple sources, and as a consequence, information in this document may materially change the coding, format and clinical context of patient data. In addition, data may be omitted in some cases. CLINICAL DECISIONS SHOULD BE BASED ON THE PRIMARY CLINICAL RECORDS. [employer] provides no warranty or guarantee of the accuracy or completeness of information in this document.
[2024-01-05 04:07] LABS: PSA, Free 0.64 ng/mL; Prostate Specific Ag 3.6 ng/mL (0.0-4.0)
== END 2024-01-04 09:00 | disposition home or self-care (01) ==
LOC: LAB 09:01
PROVIDERS: PCP Internal Medicine; Visit Provider Urology
DX: N40.1 Benign prostatic hyperplasia with lower urinary tract symptoms (principal); R97.20 Elevated prostate specific antigen [PSA]
CPT/HCPCS: 36415; 84153; 84154

== ENCOUNTER 2025-03-18 00:58 | Emergency (ER) | payer MEDICARE, OTHER, SELFPAY ==
[2025-03-18] VITALS (39 sets, daily range): BP systolic 130–182; BP diastolic 69–105; PULSE 79–108; TEMP 37.3; O2SAT 88–95; BMI 29.8
--- OUTSIDE RECORDS SUMMARY | 2025-03-18 01:07 | XMS_ITS | CCD ---
Author Organization [facility] Care Team Providers Care Gas Jockey Name Role Phone PATTI THOMAS Referring Unavailable TEN ECKERT Admitting Unavailable TEN ECKERT Attending Unavailable DUNNGYPSY, PATTI Primary Care Unavailable TEN ECKERT Admitting Unavailable TEN ECKERT Attending Unavailable DUNN-EMERJanelle, PATTI Primary Care Unavailable DUNNGYPSY PATTI Referring Unavailable TEN ECKERT Admitting Unavailable TEN ECKERT Attending Unavailable DUNN-BELTRAN, PATTI Primary Care Unavailable DUNNARIADNA GIBSONRA Referring Unavailable PATTI THOMAS Primary Care Physician Cirilo Rehman Unavailable DUNN EMERY, PATTI Primary Care Unavailable SIRI, DR DANNY Simon Admitting Unavailable SIRI, DR DANNY Simon Attending Unavailable SIRI, DR DANNY Simon Consulting Unavailable SANDIP, DR RONALDO Lancaster Consulting Unavailable MISC, DR FREED Attending Unavailable MISC, DR FREED Consulting Unavailable MISC, DR FREED Admitting Unavailable DUNN EMERY, PATTI Primary Care Unavailable MISC, DR FREED Attending Unavailable MISC, DR FREED Consulting Unavailable DUNN EMERJanelle, PATTI Primary Care Unavailable MISC, DR FREED Admitting Unavailable DUNN EMERJanelle, DR PATTI Gomez Consulting Van labkourtney OCHOADUNN BELTRAN, DR PATTI Gomez Admitting Unavai lable DUNN EMERJanelle, PATTI Primary Care Unavailable DUNN BELTRAN, DR PATTI Gomez Attending Unanaei lable SINCERE GONG, DR PATTI Gomez Consulting Van yoole Dunn-Patti Gong DO Unavailable Alysa [place], Tri Gustafson Unavailable Checo [place], Zhang Tellez Unavailable Danny Horner MD Unavailable Ten Eckert MD Unavailable Dunn-WilliamsonPatti conn DO Primary Care Provider TNE ECKERT Attending Unavailable TEN ECKERT Attending Unavailable DUNN-EMERJanelle, PATTI Gomez Attending Unavailab le DUNN-EMERY, PATTI D Attending Unavailab le DUNN-EMERY, PATTI D Attending Unavailab le DUNN-EMERY, PATTI D Attending Unavailab le DUNN-EMERY, PATTI D Admitting Unavailab le DUNN-EMERY, PATTI D Attending Unavailab le DUNN-EMERY, PATTI D Admitting Unavailab le COOK, Danny P Attending Unavailable SIRI, Danny P Admitting Unavailable COOK, Danny P Attending Unavailable COOK, Danny P Attending Unavailable COOK, Danny P Admitting Unavailable COOK, Danny P Attending Unavailable Allergies Allergy Classification Reported Allergen(s) Allergy Type Date of Onset Reaction(s) Facility (12 sources) Adhesive Tape; Translations: [Tape] Propensity to adverse reactions (disorder) 020 rash, Unknown [facility] Repository (10 sources) Penicillins; Translations: [penicillins] Drug allergy (disorder) 019 Cutaneous eruption (morphologic abnormality), Moderate (severity modifier) (qualifier value) [facility] (12 sources) hydroCHLOROthiazide; Translations: [hydrochlorothiazide] Drug Allergy 021 unknown, ABNORMAL LABS [facility] tuul Other (6 sources) Penicillin G Drug Allergy 023 Unknown [facility] Other (1 source) Adhesive agent Drug allergy (disorder) [facility] Repository (1 source) Penicillin Drug Allergy [facility] Repository (5 sources) hydroCHLOROthiazide Drug Allergy 023 [facility] Work Phone: (1 source) ADHESIVE TAPE-SILICONES; Translations: [ADHESIVE TAPE-SILICONES] Propensity to adverse reactions to drug (disorder) 022 [facility] Repository (2 sources) Penicillin; Translations: [penicillins] Drug Allergy Cutaneous eruption (morphologic abnormality), Moderate (severity modifier) (qualifier value) [facility] Medications Current Medications Medication Drug Class(es) Dates Sig (Normalized) Sig (Original) acetaminophen 325 mg / HYDROcodone bitartrate 7.5 mg oral tablet (2 sources) Opioid Agonist Start: 09-29-2023 [place] 325 mg-7.5 mg oral tablet See Instructions, [...] as needed for pain - following procedure, [facility], 195, cm, 09/08/23 13:52:00 EDT, Height/Length Dosing, 110, kg, 09/08/23 13:52:00 EDT, Weight Dosing Start Date: 09/29/23 Status: Ordered amLODIPine 10 mg oral tablet (14 sources) Dihydropyridine Calcium Channel Teddy Start: 05-20-2019 take 1 tablet by mouth once daily amLODIPine 10 mg Tab 10 mg = 1 tab(s), Oral, Daily, Refills(s) 0, High blood pressure Start Date: 05/20/19 Status: Ordered Repeat number: 1 apixaban 5 mg oral tablet (14 sources) Factor Xa Inhibitor Start: 02-05-2022 take 1 tablet by mouth twice daily Eliquis 5 mg oral tablet 5 mg = 1 tab(s), Oral, BID Start Date: 02/05/22 Status: Ordered Repeat number: 1 aspirin 81 mg oral tablet (1 source) [...] days, # 14 tab(s), Refills(s) 0, Pharmacy: [facility] 1155, 195, cm, 09/08/23 13:52:00 EDT, Height/Length Dosing, 110, kg, 09/08/23 13:52:00 EDT, Weight Dosing Start Date: 09/29/23 Status: Ordered Start: 06-29-2020 take 1 tablet by wojciech th every twelve hours Cipro 500 mg Tab 500 mg = 1 tab(s), Oral, q12hr Start Date: 06/29/20 Status: Ordered cloNIDine hydrochloride 0.2 mg oral tablet (5 sources) Central alpha-2 Adrenergic Agonist take 1 tablet by mouth in the morning cloNIDine (Catapres) 0.2 MG tablet Take 0.2 mg by mouth in the morning and 0.2 mg before bedtime. Active take 1 tablet by mouth in the mo rning cloNIDine (Catapres) 0.1 MG tablet Take 0.1 mg by mouth in the morning and 0.1 mg before bedtime. Active diazePAM 10 mg oral tablet (2 sources) Benzodiazepine Start: 09-29-2023 Valium 10 mg Tab See Instructions, take 1 hr prior to procedure, # 1 tab(s), Refills(s) 0, Pharmacy: [facility]5, 195, cm, 09/08/23 13:52:00 EDT, Height/Length Dosing, 110, kg, 09/08/23 13:52:00 EDT, Weight Dosing Start Date: 09/29/23 Status: Ordered empagliflozin 25 mg oral tablet (5 sources) Sodium-Glucose Cotransporter 2 Inhibitor take 0.5 tablet by mouth once daily empagliflozin (Jardiance) 25 MG Take 0.5 tablets by mouth Daily [facility] Active flecainide acetate 100 mg oral tablet (2 sources) Antiarrhythmic Start: 02-05-2022 flecainide 100 mg Tab 100 mg = 1 tab(s), Oral Start Date: 02/05/22 Status: Ordered take 1 tablet by wojciech th every twelve hours Flecainide Acetate 100 MG 1 TABLET Orall y twice a day Active fosinopril sodium 40 mg oral tablet (14 sources) Angiotensin Converting Enzyme Inhibitor Start: 07-14-2019 take 1 tablet by mouth once daily fosinopril 40 mg Tab 40 mg = 1 tab(s), Oral, Daily, High blood pressure Start Date: 07/14/19 Status: Ordered Repeat number: 1 metFORMIN hydrochloride 500 mg oral tablet (16 sources) Biguanide Start: 08-09-2024 take 1 tablet by mouth once daily metFORMIN (Glucophage) 500 MG tablet Indications: Diabetic glomerulopathy (CMS/HCC) Take 1 tablet (500 mg) by mouth Daily Dose decreased per NAE Valdivia 08/09/2024 Active Start: 05-20-2019 End: 08-09-2024 take 500 mg by mouth twice daily metformin 500 mg, Oral, BID, Refills(s) 0, Blood glucose Start Date: 05/20/19 Status: Ordered Repeat number: 1 24 hr metoprolol succinate 50 mg extended release oral tablet (14 sources) beta-Adrenergic Teddy Start: 01-18-2020 take 1 mg by mouth once daily metoprolol 50 mg ER Tab mg tab(s), Oral, Daily, Refills(s) 0 Start Date: 01/18/20 Status: Ordered Repeat number: 1 metroNIDAZOLE 500 mg oral tablet (8 sources) Nitroimidazole Antimicrobial Start: 06-29-2020 take 1 tablet by mouth three times daily MetroNIDAZOLE 500 mg Tab 500 mg = 1 tab(s), Oral, TID Start Date: 06/29/20 Status: Ordered Repeat number: 1 omeprazole 20 mg delayed release oral capsule (15 sources) Proton Pump Inhibitor Start: 07-14-2023 End: 12-16-2024 take 1 capsule by mouth once daily in the morning omeprazole (PriLOSEC) [address] capsule Indications: Gastroesophageal reflux disease with esophagitis without hemorrhage Take 1 capsule (20 mg) by mouth Daily in the Morning Do not crush or chew. 90 capsule 3 12/16/2024 Active take 1 capsule by mouth once gianni ly Omeprazole 20 MG 1 capsule 30 minutes before morning meal Orally Once a day Active microencapsulated potassium chloride 20 meq extended release oral tablet (20 sources) Start: 01-09-2025 take 1 tablet by mouth in the morning, then take 1 tablet by mouth in the evening, then take 1 tablet by mouth at bedtime potassium chloride CR (Klor-Con M20) 20 MEQ ER tablet Indications: Stage 3b chronic kidney disease (HCC) ([facility]/HCC) Take 1 tablet (20 mEq) by mouth in the morning and 1 tablet (20 mEq) in the evening and 1 tablet (20 mEq) before bedtime. 270 tablet 3 01/09/2025 Active Start: 01-18-2024 take 1 tablet by wojciech th three times daily potassium chloride CR (Klor-Con M20) 20 MEQ ER tablet Indications: Stage 3b chronic kidney disease (HCC) (CMS/HCC) TAKE ONE TABLET BY MOUTH THREE TIMES A DAY 270 tablet 3 01/18/2024 Active Start: 02-05-2022 Klor-Con Oral Start Date: 02/05/22 Status: Ordered Repeat number: 1 Start: 02-05-2022 Klor-Con Oral Start Date: 02/05/22 Status: Ordered Start: 06-22-2019 take 1 tablet by wojciech th three times daily potassium chloride 20 mEq ER Tab 20 mEq = 1 tab(s), Oral, TID, Other (see comment) Start Date: 06/22/19 Status: Ordered Repeat number: 1 simvastatin 40 mg oral tablet (14 sources) HMG-CoA Reductase Inhibitor Start: 05-20-2019 take 1 tablet by mouth once daily at bedtime simvastatin 40 mg Tab 40 mg = 1 tab(s), Oral, Once a day (at bedtime), Refills(s) 0, High cholesterol Start Date: 05/20/19 Status: Ordered Repeat number: 1 traMADol hydrochloride 50 mg oral tablet (6 sources) Opioid Agonist Start: 09-30-2023 take 1 tablet by mouth every six hours Ultram 50 mg Tab 50 mg = 1 tab(s), Oral, q6hr, # 20 tab(s), Refills(s) 0, Pharmacy: [facility], 195, cm, 09/08/23 13:52:00 EDT, Height/Length Dosing, 110, kg, 09/08/23 13:52:00 EDT, Weight Dosing Start Date: 09/30/23 Status: Ordered Quantity: 20.0 Unit: tab(s) Repeat number: 1 triamcinolone acetonide 1 mg/ml topical cream (13 sources) Corticosteroid Start: 04-05-2024 triamcinolone (Kenalog) 0.1 % cream Indications: Dermatitis Apply topically 2 (two) times a day To affected areas 454 g 3 04/05/2024 Active Start: 07-14-2023 triamcinolone Once Start Date: 07/14/23 Status: Ordered Repeat number: 1 Start: 07-14-2023 triamcinolone Once Start Date: 07/14/23 [...] procedure, # 10 tab(s), Refills(s) 0, Pharmacy: [facility], 195, cm, 09/08/23 13:52:00 EDT, Height/Length Dosing, 110, kg, 09/08/23 13:52:00 EDT, Weight Dosing Start Date: 09/29/23 Status: Ordered Problems Active Problems Problem Classification Problem Date Documented Date Episodic/Chronic Administrative/socia l admission (2 sources) Patient encounter status; Translations: [Other specified counseling] 08-09-2024 Episodic Calculus of urinary tract (20 sources) History of calculus of kidney; Translations: [Personal history of urinary calculi] Onset: 1 Resolved: 1 Episodic Cardiac dysrhythmias (9 sources) Persistent atrial fibrillation; Translations: [Other persistent atrial fibrillation] Onset: 3 08-09-2024 Chronic Cataract (5 sources) Bilateral cortical age-related cataract eyes; Translations: [Cortical age-related cataract, bilateral] Onset: 3 12-01-2023 Chronic Chronic kidney disease (12 sources) Chronic kidney disease stage 2; Translations: [Chronic kidney disease, stage 2 (mild)] Onset: 1 Resolved: 1 Chronic Chronic kidney disease (5 sources) Chronic kidney disease; Translations: [CHRONIC KIDNEY DISEASE STAGE 3B] Onset: 2 Coagulation and hemorrhagic disorders (2 sources) Thrombophilia; Translations: [Other thrombophilia] 08-09-2024 Chronic Complication of device; implant or graft (8 sources) Retained ureteric stent 07-22-2019 Episodic Diabetes mellitus with complications (5 sources) Disorder of kidney due to diabetes mellitus; Translations: [Type 2 diabetes mellitus with diabetic chronic kidney disease] Onset: 1 Resolved: 1 Chronic Diabetes mellitus without complication (17 sources) Diabetes mellitus; Translations: [Type 2 diabetes mellitus with diabetic nephropathy] Onset: 3 05-20-2019 Chronic Disorders of lipid metabolism (18 sources) Hypercholesterolemia; Translations: [Mixed hyperlipidemia] Onset: 2 06-30-2019 Chronic Diverticulosis and diverticulitis (10 sources) Diverticular disease; Translations: [Diverticulosis of intestine, part unspecified, without perforation or abscess without bleeding] Onset: 3 Resolved: 3 07-20-2023 Chronic Esophageal disorders (7 sources) Gastro-esophageal reflux disease with esophagitis; Translations: [Gastroesophageal reflux disease with esophagitis without hemorrhage] Onset: 3 12-01-2023 Chronic Essential hypertension (17 sources) Hypertensive disorder; Translations: [Benign essential hypertension] Onset: 3 05-20-2019 Chronic Genitourinary symptoms and ill-defined conditions (20 sources) Blood in urine; Translations: [Increased frequency of urination] Onset: 1 Resolved: 1 06-30-2019 Episodic Hyperplasia of prostate (17 sources) Benign prostatic hypertrophy with outflow obstruction; Translations: [Benign prostatic hyperplasia with lower urinary tract symptoms] Onset: 2 Chronic Hypertension with complications and secondary hypertension (8 sources) Chronic kidney disease due to hypertension; Translations: [Hypertensive chronic kidney disease with stage 1 through stage 4 chronic kidney disease, or unspecified chronic kidney disease] Onset: 1 Resolved: 1 Chronic Immunizations and screening for infectious disease (2 sources) Needs influenza immunization; Translations: [Encounter for immunization] 08-09-2024 Episodic Other aftercare (3 sources) Long-term current use of anticoagulant; Translations: [longterm (current) use of anticoagulants] Onset: 3 Episodic Other diseases of bladder and urethra (8 sources) Hypertrophy of bladder 06-29-2020 Chronic Other diseases of kidney and ureters (1 source) Secondary hyperparathyroidism; Translations: [Secondary hyperparathyroidism of renal origin] Chronic Other diseases of kidney and ureters (2 sources) Urinary tract obstruction; Translations: [Other obstructive and reflux uropathy] Onset: 2 Episodic Other ear and sense organ disorders (7 sources) Sensorineural hearing loss, bilateral; Translations: [Sensorineural hearing loss, bilateral] Onset: 3 07-20-2023 Chronic Other non-epithelial cancer of skin (8 sources) Malignant neoplasm of skin 05-20-2019 Episodic Other nutritional; endocrine; and metabolic disorders (1 source) Overweight in adulthood with body mass index of 25 or more but less than 30; Translations: [Body mass index (BMI) 28.0-28.9, adult] Onset: 2 Episodic Other nutritional; endocrine; and metabolic disorders (8 sources) Body mass index 25-29 - overweight 02-05-2022 Episodic Other screening for suspected conditions (not mental disorders or infectious disease) (16 sources) Raised prostate specific antigen; Translations: [Elevated prostate specific antigen [PSA]] Onset: 2 Episodic Residual codes; unclassified (9 sources) Obstructive sleep apnea syndrome; Translations: [Obstructive sleep apnea (adult) (pediatric)] 08-09-2024 Chronic Residual codes; unclassified (9 sources) Dependence on continuous positive airway pressure ventilation; Translations: [Dependence on other enabling machines and devices] Onset: 4 08-09-2024 Chronic Unclassified (8 sources) Drug therapy finding 06-29-2020 Unclassified (2 sources) Other persistent atrial fibrillation; Translations: [Other persistent atrial fibrillation] Onset: 2 Past or Other Problems Problem Classification Problem Date Documented Da te Episodic/Chronic Acute and unspecified renal failure (1 source) Acute kidney failure, unspecified Onset: 09-11-2021 Resolved: 09-11-2021 Episodic Allergic reactions (5 sources) Inflammatory dermatosis; Translations: [Dermatitis, unspecified] Onset: 04-05-2024 04-05-2024 Episodic Deficiency and other anemia (1 source) Anemia, unspecified Onset: 09-11-2021 Resolved: 09-11-2021 Episodic Other aftercare (4 sources) longterm (current) use of anticoagulants; Translations: [BACK GRINDER CURRNT USE ANTICOAGULANTS] Onset: 05-27-2022 Episodic Other gastrointestinal disorders (5 sources) Stool DNA-based colorectal cancer screening positive; Translations: [Other fecal abnormalities] Onset: 07-20-2023 Resolved: 09-06-2023 09-06-2023 Episodic Other non-traumatic joint disorders (5 sources) Bilateral stiffness of knee joints; Translations: [Stiffness of right knee, not elsewhere classified] Onset: 08-09-2024 08-09-2024 Episodic Results Test Name Value Interpretation Reference Range Facility Ambulatory Visit Summaryon 0 03-08-2025 Ambulatory Visit Summary Ambulatory Visit Summary ALINE TOMLIN :1950 Visit Date:03/08/2025 Ambulatory Visit Instructions Your Diagnosis BPH with obstruction/lower urinary tract symptoms Urinary retention Elevated PSA History of kidney stones Anticoagulated Your Care Team Attending Physician - Danny [...] Height 195 cm Height 77 in Weight 109.0 kg Weight 240.304 lb BMI 28.67 What to do next You Need to Schedule the Following Appointments Follow Up with SIRI [place], Danny Simon, KEERTHI When: [facility] [address] [place] [phone]- Medications What How Much When Instructions Unchanged amlodipine (amLODIPine 10 mg Tab) 1 Tablets By Mouth Every day Contact prescribing physician if questions or concerns Unchanged apixaban (Eliquis 5 mg oral tablet) 1 Tablets By Mouth 2 times a day Contact prescribing physician if questions or concerns Unchanged fosinopril (fosinopril 40 mg Tab) 1 Tablets By Mouth Every day Contact prescribing physician if questions or concerns Unchanged metformin 500 Milligram By Mouth Every day Contact prescribing physician [...] Contact prescribing physician if questions or concerns Allergies Tape (rash) hydroCHLOROthiazide (unknown) penicillins (Rash, [...] of skin DM - Diabetes mellitus Hypertension Patient Survey You may receive a survey via text or e-mail asking about your office visit. Please share your experience with us by completing your survey. We appreciate your feedback and thank you for choosing us for your care. Education Materials Prostate Cancer Screening Prostate cancer screening is [...] recommendations. In general, screening is recommended if: ??? You are age 50 to 70 and [...] have a 10- to 15-year life expectancy. ??? You are younger than age 50, and you have these risk factors: ? Having a father, brother, or uncle who has been diagnosed with prostate cancer. The risk is higher if your family member's cancer occurred at an early age or if you have multiple family memb (more content not included)... Normal [facility] Urology Office/Clinic Noteon 03-08-2025 Urology Office/Clinic Note Urology Office/Clinic Note Chief Complaint 1 year with PSA HPI Staff 74 year old male here for 1 year with PSA Previous DX: BPH w/LUTS, urinary retention, elevated PSA, H/O kidney stones and anticoagulated S/p REZUM 10/12/23. PSA 01/30/22 - 4.88 02/02/23 - 5.30 & 15% 07/06/23 - 5.00 & 19% 01/03/24 - 3.5 & 17.8% [since REZUM] 02/22/25 - 3.6 & 22.2% IPSS 3 Pt. denies having incontinence Pt. denies having pain with urination Pt. denies having gross hematuria Pt. denies having abd pain Pt. denies having flank pain History of Present Illness Tests reviewed: reviewed UA and PSA. I have reviewed the previous health record information and history for this patient from Dr. Horner I have reviewed and verified the staff [...] HPI. Physical Exam Vitals & Measurements HT: 195 cm HT: 77 in WT: 109.0 kg WT: 240.304 lb BMI: 28.67 General Appearance: alert, no distress, well nourished, well developed male. Assessment/Plan 74 yo male here for BPH and elevated PSA f/up. Portions of this record may have been created with voice recognition artificial intelligence software, specifically [employer], [employer] and or [employer]. Substitutions may have occurred due to the [...] rest of the bladder demonstrates grade 3 trabeculation. S/p REZUM 10/12/23. UA today negative for blood or infection. IPSS 3 (3) Not taking any BPH meds. No bothersome urinary complaints. -Cont symptomatic monitoring 2. Urinary retention (R33.9: Retention of urine, unspecified) PVR 07/14/23 - 310 mL 10/28/23 - 164 mL 03/02/24 - 0 mL See #1 3. Elevated PSA (R97.20: Elevated prostate specific antigen [PSA]) PSA 12/13/18 - 3.89 06/07/20 - 4.64 01/07/21 - 3.90 & 15% 01/30/22 - 4.88 02/02/23 - 5.30 & 15% 07/06/23 - 5.00 & 19% 01/03/24 - 3.5 & 17.8% (s/p REZUM) 02/22/25 - 3.6 & 22.2% PSA remains stable. Will cont to monitor over time. -PSAFT in 1 year 4. History of kidney stones (Z87.442: Personal history of urinary calculi) KUB 02/02/23 neg for stones. No recent imaging. Denies pain or passage of stones since prior OV. Will order KUB prior to next visit. -Fluids -KUB in 1 year 5. 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 Elevated risk for periop complications in the future. Overall the patient understands that his PSA level remains low and stable status post Rezum procedure. He understands that prostatic tissue was fulgurated resulting in cell which can actually decrease the PSA over time. His urinary flow pattern is good. It has been a while since his last abdominal x-ray. KUB ordered prior to next visit. Reviewed urinalysis. Ordered PSA. Order KUB Follow-up With When Contact Information Danny HORNER MD, URL [address] [id number]- Additional Instructions: 1 year w/ PSAFT & KUB Patient Education Prostate Cancer Screening I, Stacy Medeiros, personally scribed for Dr. Horner on 03/08/2025 09:39:14. . Documentation recorded by the scribe, Stacy Medeiros, accurately reflects the services(s) I performed and decisions made by me. Authenticated by Dr. Horner on 03/08/2025 09:43:18. Problem List/Past Medical History Ongoing Anticoagulated Bladder wall thickening BMI 28.0-28.9,adult BPH with obstruction/lower urinary tract symptoms Elevated PSA Frequent urination History of kidney stones Kidney stone Microscopic hematuria Nocturia Retained ureteral stent Urinary retention Urinary urgency Historical Cancer of skin DM - Diabetes mellitus Hypertension Procedure/Surgical History Cystoscopic removal of ureteric stent (07/25/2019), (more content not included)... Normal [facility] Comment on above: Result Comment: Elec tronically Signed By: Danny HORNER MD\.br\Date and Time Signed: 03/08/25 09:46 EDT\.br\Electronically Co-Signed By: Stacy Medeiros\.br\Date and Time Co-Signed: 03/08/25 09:39 EDT CHEMISTRYOrdered By: SYSTEM SYSTEM on 02-22-2025 Albumin DL <= 20 mg/L (U) [Mass/Vol] 0.8 mg/dL Normal 0.0 - 1.9 mg/dL Remisol Chem Albumin/Creatinine DL <= 20 mg/L (U) [Mass ratio] 21.0 mg/gm Cr Normal 0.0 - 30.0 mg/gm Cr Remisol Chem Comment on above: Interpretive Data: 3 0-300 mg/g Cr indicates an increased risk for diabetic nephropathy. >300 mg/g Cr is consistent with clinical nephropathy. U Creatinine 38.1 mg/dL Invalid Interpretation Code Remisol Chem Free PSA [Mass/Vol] 0.8 ng/mL Invalid Interpretation Code Remisol Chem Comment on above: Interpretive Data: T he concentration of free PSA and total PSA determined with assays from different manufacturers can vary due to differences in assay methods and specificity. Values obtained with different security and privacy consultant's assays cannot be used interchangeably. The methodology used to obtain this result was chemiluminescence using [employer] Access Hybritech PSA reagent and Access [employer] free PSA reagent. Free PSA/Total PSA [Mass fraction] 22.2 % Low >=25.0% Remisol Chem Prostate specific Ag [Mass/Vol] 3.6 ng/mL High 0.1 - 3.5 ng/mL Remisol Chem Comment on above: Interpretive Data: T he concentration of PSA determined by different manufacturers can vary due to differences in assay methods and reagent specificity. Values obtained from different assay methods cannot be used interchangeably. The methodology used for this result was chemiluminescence using [employer] Access Hybritech PSA reagent. [facility] [place]/CR RATIOon ALBUMIN/CREATININE:M RTO:PT:URINE:QN:DETE CTION LIMIT <= 20 MG/L [facility] Comment on above: 30-300 mg/g Cr indic ates an increased risk for diabetic nephropathy. >300 mg/g Cr is consistent with clinical nephropathy. Creatinine (U) [Mass/Vol] 38.1 mg/dL [facility] ALBUMIN:MCNC:PT:URIN E:QN:DETECTION LIMIT <= 20 MG/L 0.8 mg/dL 0.0 - 1.9 mg/dL [facility] Original Ordering Provider: [facility] MA/Cr Ratioon 02-22-2025 Albumin DL <= 20 mg/L (U) [Mass/Vol] 0.8 mg/dL Normal 0.0-1.9 [facility] Comment on above: Performed By: #### 1 [id number] #### [facility] [address] [place] [address] Albumin/Creatinine DL <= 20 mg/L (U) [Mass ratio] 21.0 mg/gm Cr Normal .0-30.0 [facility] Comment on above: Result Comment: 30-3 00 mg/g Cr indicates an increased risk for diabetic nephropathy. >300 mg/g Cr is consistent with clinical nephropathy. Performed By: #### 1 [id number] #### [facility] [address] [place] [address] U Creatinine 38.1 mg/dL Invalid Interpretation Code [facility] Comment on above: Performed By: #### 1 [id number] #### [facility] [address] [place] [address] Laboratory - Hematology and Cell countson 12-16-2024 HbA1c (Bld) [Mass fraction] 7.3 % [facility] No Panel Informationon 12-16 [facility] Cobalamin (Vitamin B12) [Mas s/Vol]on 12-14-2024 [facility] Laboratory - Chemistry and C hemistry - challengeon 12-14-2024 Cobalamin (Vitamin B12) [Mass/Vol] 545 pg/mL [facility] TSH Qn 1.007 m[IU]/L [facility] Prostate specific Ag [Mass/Vol] 4.35 ng/mL [facility] Lipid 1996 panelon Cholesterol [Mass/Vol] 135 mg/dL [facility] HDL-C 35 [facility] LDL-C 91 [facility] Triglyceride [Mass/Vol] 57 mg/dL [facility] No Panel Informationon 12-14 [facility] Prostate specific Ag [Mass/V ol]on 12-14-2024 [facility] Office Visiton 11-22-2024 Follow-up visit [id number] Aline Tomlin 1950 M Date Provider Department Center 11/22/2024 TEN WARD [facility] Family History Problem Relation Age of Onset Other Father Family Status - Relation Status Age at Father Level of Service:[address] [place] OFFICE/OUTPATIENT ESTABLISHED LOW MDM 20 MIN Normal [facility] HbA1c (Bld) [Mass fraction]o n 08-05-2024 [facility] Laboratory - Hematology and Cell countson 08-05-2024 HbA1c (Bld) [Mass fraction] 6.7 % [facility] Microalbumin/Creatinine rati o panel (U)on 08-05-2024 Albumin DL <= 20 mg/L (U) [Mass/Vol] 6.9 mg/dL [facility] Albumin/Creatinine DL <= 1.0 mg/L (U) [Ratio] 52.1 [facility] Creatinine (U) [Mass/Vol] 132.4 mg/dL [facility] Office Visiton 05-24-2024 Follow-up visit [id number] Aline Tomlin 1950 M Date Provider Department Center 05/24/2024 TEN WARD [facility] Family History Problem Relation Age of Onset Other Father Family Status - Relation Status Age at Father Level of Service:[address] [place] OFFICE/OUTPATIENT ESTABLISHED LOW MDM 20 MIN Normal [facility] PSA, FREE AND TOTAL RATIOon 02-03-2023 % Free PSA 15.1 % Normal [facility] Comment on above: Result Comment: The table [...] men. Performed By: #### P SAFREE #### [facility] [address] [place] [address] Dr. Manuel aCllejas Prostate specific Ag [Mass/Vol] 5.3 ng/mL Critically high 0.0-4.0 [facility] Comment on above: Result Comment: Robert BRIONES methodology. . According to the [place] [employer], Serum PSA should decrease and [...] disease. Performed By: #### P SAFREE #### [facility] [address] [address] [address] Manuel Callejas PSA, Free 0.80 ng/mL Normal N/A [facility] Comment on above: Result Comment: Robert CARTERIA methodology. Performed By: #### P SAFREE #### [facility] [address] [place] [address] Dr. Manuel Callejas XR KUB 1 VIEWon [...] by: RONALDO OROPEZA Date: 2023-02-02 10:53 Normal [facility] MICROALBUMIN/ CREATININE RAT IOon 07-09-2022 Albumin, Urine 12.2 ug/mL Normal Not Estab. [facility] Comment on above: Performed By: #### M ALBCRL #### [facility] [address] [address] [address] Manuel Callejas Albumin/ Creatinine Ratio 23 mg/g creat Normal 0-29 [facility] Comment on above: Result Comment: Norm al: 0 - 29 Moderately increased: 30 - 300 Severely increased: >300 Performed By: #### M ALBCRL #### [facility] [address] [address] [address] Manuel Callejas Creatinine, Urine 52.2 mg/dL Normal Not Estab. [facility] Comment on above: Performed By: #### M ALBCRL #### [facility] [address] [place] [address] Dr. Manuel Callejas CBC AUTO DIFFon 07-08-2022 BASO # 0.1 103/ul Normal 0.0-0.1 [facility] Comment on above: Performed By: #### C BC #### [facility] [address] [place] [address] Dr. Manuel Callejas Basophils/100 WBC (Bld) 0.9 % Normal 0.2-2.0 [facility] Comment on above: Performed By: #### C BC #### [facility] [address] [place] [address] Dr. Manuel Callejas EO # 0.1 103/ul Normal 0.0-0.7 [facility] Comment on above: Performed By: #### C BC #### [facility] [address] [place] [address] Dr. Manuel Callejas Eosinophils/100 WBC (Bld) 2.1 % Normal 0.9-7.0 [facility] Comment on above: Performed By: #### C BC #### [facility] [address] [place] [address] Dr. Manuel Callejas Erythrocyte distribution width (RBC) [Ratio] 12.1 % Normal 11.0-15.0 [facility] Comment on above: Performed By: #### C BC #### [facility] [address] [place] [address] Dr. Manuel Callejas Hematocrit (Bld) [Volume fraction] 38.1 % Critically low 42.0-54.0 [facility] Comment on above: Performed By: #### C BC #### [facility] [address] [place] [address] Dr. Manuel Callejas Hemoglobin (Bld) [Mass/Vol] 13.1 g/dL Critically low 14.0-18.0 [facility] Comment on above: Performed By: #### C BC #### [facility] [address] [place] [address] Dr. Manuel Callejas IG # 0.01 10e3/ul Normal 0.00-0.03 [facility] Comment on above: Performed By: #### C BC #### [facility] [address] [place] [address] Dr. Manuel Callejas IG % 0.2 % Normal 0.0-0.5 [facility] Comment on above: Performed By: #### C BC #### [facility] [address] [place] [address] Dr. Manuel Callejas LYMPH # 1.9 103/ul Normal 1.2-3.8 [facility] Comment on above: Performed By: #### C BC #### [facility] [address] [place] [address] Dr. Manuel Callejas Lymphocytes/100 WBC (Bld) 32.3 % Normal 20.5-60.0 [facility] Comment on above: Performed By: #### C BC #### [facility] [address] [place] [address] Dr. Manuel Callejas MANUAL DIFF REQ NO Normal [facility] Comment on above: Performed By: #### C BC #### [facility] [address] [place] [address] Dr. Manuel Callejas MCH (RBC) [Entitic mass] 31.5 pg Normal 25.9-34.0 [facility] Comment on above: Performed By: #### C BC #### [facility] [address] [place] [address] Dr. Manuel Callejas MCHC (RBC) [Mass/Vol] 34.4 g/dL Normal 29.9-35.2 [facility] Comment on above: Performed By: #### C BC #### [facility] [address] [place] [address] Dr. Manuel Callejas MCV (RBC) [Entitic vol] 91.6 fL Normal 80.0-94.0 [facility] Comment on above: Performed By: #### C BC #### [facility] [address] [place] [address] Dr. Manuel Callejas MONO # 0.6 103/ul Normal 0.3-0.8 [facility] Comment on above: Performed By: #### C BC #### [facility] [address] [address] [address] Manuel Callejas Monocytes/100 WBC (Bld) 9.8 % Normal 1.7-12.0 [facility] Comment on above: Performed By: #### C BC #### [facility] [address] [address] [address] Manuel Callejas NEUT # 3.1 103/ul Normal 1.4-6.5 [facility] Comment on above: Performed By: #### C BC #### [facility] [address] [address] [address] Manuel Callejas Neutrophils/100 WBC (Bld) 54.7 % Normal 43.0-75.0 [facility] Comment on above: Performed By: #### C BC #### [facility] [address] [address] [address] Manuel Callejas Platelet mean volume (Bld) [Entitic vol] 9.6 fL Normal 9.5-13.5 [facility] Comment on above: Performed By: #### C BC #### [facility] [address] [address] [address] Manuel Callejas PLT 189 103/ul Normal 150-450 [facility] Comment on above: Performed By: #### C BC #### [facility] [address] [address] [address] Manuel Callejas RBC 4.16 106/ul Critically low 4.70-6.10 [facility] Comment on above: Performed By: #### C BC #### [facility] [address] [address] [address] Manuel Callejas WBC 5.7 103/ul Normal 4.0-11.0 [facility] Comment on above: Performed By: #### C BC #### [facility] [address] [address] [address] Manuel Callejas GLYCOHEMOGLOBIN A1Con 2021 ADA RECOMMENDATION SEE BELOW Normal [facility] Comment on above: Result Comment: ADA RECOMMENDED LIMIT 4.0 - 6.0 ADA THERAPEUTIC TARGET < 7.0 ACTION SUGGESTED > 7.0 Performed By: #### A 1C #### [facility] [address] [address] [address] Manuel Callejas Glucose [Mass/Vol] 137 mg/dL Normal [facility] Comment on above: Performed By: #### A 1C #### [facility] [address] [address] [address] Manuel Callejas HbA1c (Bld) [Mass fraction] 6.4 % Critically high 4.5-6.2 [facility] Comment on above: Performed By: #### A 1C #### [facility] [address] [place] [address] Dr. Manuel Callejas LIPID PROFILEon 07-08-2022 CHOL-HDL RATIO NORM SEE BELOW Normal [facility] Comment on above: Result Comment: 3.3 - 4.4 LOW RISK 4.4 - 7.1 AVERAGE RISK 7.1 - 11.0 MODERATE RISK >11.0 HIGH RISK Performed By: #### C MP, LIPID #### [facility] [address] [place] [address] Dr. Manuel Callejas Cholesterol [Mass/Vol] 155 mg/dL Normal <=200 [facility] Comment on above: Performed By: #### C MP, LIPID #### [facility] [address] [place] [address] Dr. Manuel Callejas Cholesterol in HDL [Mass/Vol] 44 mg/dL Normal 40-60 [facility] Comment on above: Performed By: #### C MP, LIPID #### [facility] [address] [place] [address] Dr. Manuel Callejas Cholesterol in LDL [Mass/Vol] 98.2 mg/dL Normal [facility] Comment on above: Performed By: #### C MP, LIPID #### [facility] [address] [place] [address] Dr. Manuel Calleajs Cholesterol.total/Ch olesterol in HDL [Mass ratio] 3.5 {ratio} Normal [facility] Comment on above: Performed By: #### C MP, LIPID #### [facility] [address] [address] [address] Manuel Callejas HDL NORMAL > or = 60 mg/dl - LO W CARDIOVASCULAR RISK <40 mg/dl - HIGH CARDIOVASCULAR RISK Normal [facility] Comment on above: Performed By: #### C MP, LIPID #### [facility] [address] [address] [address] Manuel Callejas LDL CALC NORMAL SEE BELOW Normal [facility] Comment on above: Result Comment: <100 mg/dl OPTIMAL 100 - 129 mg/dl NEAR OR ABOVE OPTIMAL 130 - 159 mg/dl BORDERLINE HIGH 160 - 189 mg/dl HIGH >190 mg/dl VERY HIGH Performed By: #### C MP, LIPID #### [facility] [address] [place] [address] Dr. Manuel Callejas Triglyceride [Mass/Vol] 64 mg/dL Normal <=150 [facility] Comment on above: Performed By: #### C MP, LIPID #### [facility] [address] [place] [address] Dr. Manuel Callejas VLDL CALC 12.8 mg/dL Normal [facility] Comment on above: Performed By: #### C MP, LIPID #### [facility] [address] [place] [address] Dr. Manuel Callejas PROF 14(COMP METB)on 022 Albumin [Mass/Vol] 3.8 g/dL Normal 3.4-5.0 [facility] Comment on above: Performed By: #### C MP, LIPID #### [facility] [address] [place] [address] Dr. Manuel Callejas Albumin/Globulin [Mass ratio] 1.1 {ratio} Normal [facility] Comment on above: Performed By: #### C MP, LIPID #### [facility] [address] [place] [address] Dr. Manuel Callejas ALP [Catalytic activity/Vol] 86 U/L Normal 46-116 [facility] Comment on above: Performed By: #### C MP, LIPID #### [facility] [address] [place] [address] Dr. Manuel Callejas ALT [Catalytic activity/Vol] 26 U/L Normal 16-63 [facility] Comment on above: Performed By: #### C MP, LIPID #### [facility] [address] [address] [address] Manuel Callejas Anion gap [Moles/Vol] 13.8 mmol/L Normal [facility] Comment on above: Performed By: #### C MP, LIPID #### [facility] [address] [address] [address] Manuel Callejas AST [Catalytic activity/Vol] 18 U/L Normal 15-37 [facility] Comment on above: Performed By: #### C MP, LIPID #### [facility] [address] [address] [address] Manuel Callejas Bilirubin [Mass/Vol] 0.6 mg/dL Normal 0.2-1.0 [facility] Comment on above: Performed By: #### C MP, LIPID #### [facility] [address] [place] [address] Dr. Manuel Callejas Calcium [Mass/Vol] 8.8 mg/dL Normal 8.5-10.1 [facility] Comment on above: Performed By: #### C MP, LIPID #### [facility] [address] [place] [address] Dr. Manuel Callejas Chloride [Moles/Vol] 103 mmol/L Normal 98-107 [facility] Comment on above: Performed By: #### C MP, LIPID #### [facility] [address] [address] [address] Manuel Callejas CO2 [Moles/Vol] 28.9 mmol/L Normal 21.0-32.0 [facility] Comment on above: Performed By: #### C MP, LIPID #### [facility] [address] [place] [address] Dr. Manuel Callejas Creatinine [Mass/Vol] 1.20 mg/dL Normal 0.70-1.30 [facility] Comment on above: Performed By: #### C MP, LIPID #### [facility] [address] [place] [address] Dr. Manuel Callejas EGFR-AF SAO TOMEAN >60 Normal >=60 [facility] Comment on above: Performed By: #### C MP, LIPID #### [facility] [address] [address] [address] Manuel Callejas EGFR-NON AF SAO TOMEAN =60 Normal >=60 [facility] Comment on above: Performed By: #### C MP, LIPID #### [facility] [address] [address] [address] Manuel Callejas Globulin (S) [Mass/Vol] 3.6 g/dL Normal [facility] Comment on above: Performed By: #### C MP, LIPID #### [facility] [address] [address] [address] Manuel Callejas Glucose [Mass/Vol] 146 mg/dL Critically high 74-106 [facility] Comment on above: Performed By: #### C MP, LIPID #### [facility] [address] [address] [address] Manuel Callejas Potassium [Moles/Vol] 3.7 mmol/L Normal 3.5-5.1 [facility] Comment on above: Performed By: #### C MP, LIPID #### [facility] [address] [address] [address] Manuel Callejas Protein [Mass/Vol] 7.4 g/dL Normal 6.4-8.2 [facility] Comment on above: Performed By: #### C MP, LIPID #### [facility] [address] [address] [address] Manuel Callejas Sodium [Moles/Vol] 142 mmol/L Normal 136-145 [facility] Comment on above: Performed By: #### C MP, LIPID #### [facility] [address] [address] [address] Manuel Callejas Urea nitrogen [Mass/Vol] 31.0 mg/dL Critically high 7.0-18.0 [facility] Comment on above: Performed By: #### C MP, LIPID #### [facility] [address] [address] [address] Manuel Callejas Urea nitrogen/Creatinine [Mass ratio] 25.8 mg/mg Normal [facility] Comment on above: Performed By: #### C MP, LIPID #### [facility] [address] [place] [address] Dr. Manuel Callejas CBC AUTO DIFFon 05-27-2022 BASO # 0.0 103/ul Normal 0.0-0.1 [facility] Comment on above: Performed By: #### V ITAD #### [facility] [address] [place] [address] Dr. Manuel Callejas Basophils/100 WBC (Bld) 0.5 % Normal 0.2-2.0 [facility] Comment on above: Performed By: #### V ITAD #### [facility] [address] [place] [address] Dr. Manuel Callejas EO # 0.2 103/ul Normal 0.0-0.7 [facility] Comment on above: Performed By: #### V ITAD #### [facility] [address] [place] [address] Dr. Manuel Callejas Eosinophils/100 WBC (Bld) 2.2 % Normal 0.9-7.0 [facility] Comment on above: Performed By: #### V ITAD #### [facility] [address] [place] [address] Dr. Manuel Callejas Erythrocyte distribution width (RBC) [Ratio] 12.0 % Normal 11.0-15.0 [facility] Comment on above: Performed By: #### V ITAD #### [facility] [address] [place] [address] Dr. Manuel Callejas Hematocrit (Bld) [Volume fraction] 38.5 % Critically low 42.0-54.0 [facility] Comment on above: Performed By: #### V ITAD #### [facility] [address] [place] [address] Dr. Manuel Callejas Hemoglobin (Bld) [Mass/Vol] 13.1 g/dL Critically low 14.0-18.0 [facility] Comment on above: Performed By: #### V ITAD #### [facility] [address] [place] [address] Dr. Manuel Callejas IG # 0.05 10e3/ul Critically high 0.00-0.03 [facility] Comment on above: Performed By: #### V ITAD #### [facility] [address] [place] [address] Dr. Manuel Callejas IG % 0.6 % Critically high 0.0-0.5 [facility] Comment on above: Performed By: #### V ITAD #### [facility] [address] [place] [address] Dr. Manuel Callejas LYMPH # 2.2 103/ul Normal 1.2-3.8 [facility] Comment on above: Performed By: #### V ITAD #### [facility] [address] [place] [address] Dr. Manuel Callejas Lymphocytes/100 WBC (Bld) 27.1 % Normal 20.5-60.0 [facility] Comment on above: Performed By: #### V ITAD #### [facility] [address] [place] [address] Dr. Manuel Callejas MANUAL DIFF REQ NO Normal [facility] Comment on above: Performed By: #### V ITAD #### [facility] [address] [place] [address] Dr. Manuel Callejas MCH (RBC) [Entitic mass] 31.4 pg Normal 25.9-34.0 [facility] Comment on above: Performed By: #### V ITAD #### [facility] [address] [place] [address] Dr. Manuel Callejas MCHC (RBC) [Mass/Vol] 34.0 g/dL Normal 29.9-35.2 [facility] Comment on above: Performed By: #### V ITAD #### [facility] [address] [place] [address] Dr. Manuel Callejas MCV (RBC) [Entitic vol] 92.3 fL Normal 80.0-94.0 [facility] Comment on above: Performed By: #### V ITAD #### [facility] [address] [place] [address] Dr. Manuel Callejas MONO # 0.7 103/ul Normal 0.3-0.8 [facility] Comment on above: Performed By: #### V ITAD #### [facility] [address] [place] [address] Dr. Manuel Callejas Monocytes/100 WBC (Bld) 9.1 % Normal 1.7-12.0 [facility] Comment on above: Performed By: #### V ITAD #### [facility] [address] [place] [address] Dr. Manuel Callejas NEUT # 5.0 103/ul Normal 1.4-6.5 [facility] Comment on above: Performed By: #### V ITAD #### [facility] [address] [place] [address] Dr. Manuel Callejas Neutrophils/100 WBC (Bld) 60.5 % Normal 43.0-75.0 [facility] Comment on above: Performed By: #### V ITAD #### [facility] [address] [place] [address] Dr. Manuel Callejas Platelet mean volume (Bld) [Entitic vol] 9.1 fL Critically low 9.5-13.5 [facility] Comment on above: Performed By: #### V ITAD #### [facility] [address] [place] [address] Dr. Manuel Callejas PLT 202 103/ul Normal 150-450 [facility] Comment on above: Performed By: #### V ITAD #### [facility] [address] [place] [address] Dr. Manuel Callejas RBC 4.17 106/ul Critically low 4.70-6.10 [facility] Comment on above: Performed By: #### V ITAD #### [facility] [address] [place] [address] Dr. Manuel Callejas WBC 8.2 103/ul Normal 4.0-11.0 [facility] Comment on above: Performed By: #### V ITAD #### [facility] [address] [place] [address] Dr. Manuel Callejas PROF CHEM 8 (BAS METB)on Anion gap [Moles/Vol] 13.2 mmol/L Normal [facility] [facility] Comment on above: Performed By: #### B MP #### [facility] [address] [address] [address] Manuel Callejas Calcium [Mass/Vol] 8.9 mg/dL Normal 8.5-10.1 [facility] Comment on above: Performed By: #### B MP #### [facility] [address] [address] [address] Manuel Callejas Chloride [Moles/Vol] 106 mmol/L Normal 98-107 [facility] Comment on above: Performed By: #### B MP #### [facility] [address] [address] [address] Manuel Callejas CO2 [Moles/Vol] 25.9 mmol/L Normal 21.0-32.0 [facility] Comment on above: Performed By: #### B MP #### [facility] [address] [address] [address] Manuel Callejas Creatinine [Mass/Vol] 1.38 mg/dL Critically high 0.70-1.30 [facility] Comment on above: Performed By: #### B MP #### [facility] [address] [place] [address] Dr. Manuel Callejas EGFR-AF SAO TOMEAN >60 Normal >=60 [facility] Comment on above: Performed By: #### B MP #### [facility] [address] [address] [address] Manuel Callejas EGFR-NON AF SAO TOMEAN 51 mL/min/1.73m2 Critically low >=60 [facility] Comment on above: Performed By: #### B MP #### [facility] [address] [address] [address] Manuel Callejas Glucose [Mass/Vol] 126 mg/dL Critically high 74-106 [facility] Comment on above: Performed By: #### B MP #### [facility] [address] [address] [address] Manuel Callejas Potassium [Moles/Vol] 4.1 mmol/L Normal 3.5-5.1 [facility] Comment on above: Performed By: #### B MP #### [facility] [address] [place] [address] Dr. Manuel Callejas Sodium [Moles/Vol] 141 mmol/L Normal 136-145 [facility] Comment on above: Performed By: #### B MP #### [facility] [address] [place] [address] Dr. Manuel Callejas Urea nitrogen [Mass/Vol] 31.0 mg/dL Critically high 7.0-18.0 [facility] Comment on above: Performed By: #### B MP #### [facility] [address] [place] [address] Dr. Manuel Callejas Urea nitrogen/Creatinine [Mass ratio] 22.5 mg/mg Normal [facility] Comment on above: Performed By: #### B MP #### [facility] [address] [place] [address] Dr. Manuel Callejas CALCIUM IONIZEDon 02-26-2022 Calcium, Ionized, Serum 4.9 mg/dL Normal 4.5-5.6 [facility] Comment on above: Performed By: #### V ITAD #### [facility] [address] [place] [address] Dr. Manuel Callejas PTH INTACTon 02-26-2022 PTH, Intact 29 pg/mL Normal 15-65 [facility] Comment on above: Performed By: #### P THINT #### [facility] [address] [place] [address] Dr. Manuel Callejas PROF CHEM 8 (BAS METB)on Anion gap [Moles/Vol] 8.9 mmol/L Normal [facility] Comment on above: Performed By: #### V ITAD #### [facility] [address] [place] [address] Dr. Manuel Callejas Calcium [Mass/Vol] 8.6 mg/dL Normal 8.5-10.1 [facility] Comment on above: Performed By: #### V ITAD #### [facility] [address] [place] [address] Dr. Manuel Callejas Chloride [Moles/Vol] 105 mmol/L Normal 98-107 [facility] Comment on above: Performed By: #### V ITAD #### [facility] [address] [place] [address] Dr. Manuel Callejas CO2 [Moles/Vol] 32.5 mmol/L Critically high 22.0-30.0 [facility] Comment on above: Performed By: #### V ITAD #### [facility] [address] [place] [address] Dr. Manuel Callejas Creatinine [Mass/Vol] 1.08 mg/dL Normal 0.66-1.25 [facility] Comment on above: Performed By: #### V ITAD #### [facility] [address] [place] [address] Dr. Manuel Callejas EGFR-AF SAO TOMEAN >60 Normal >=60 [facility] Comment on above: Performed By: #### V ITAD #### [facility] [address] [place] [address] Dr. Manuel Callejas EGFR-NON AF SAO TOMEAN >60 Normal >=60 [facility] Comment on above: Performed By: #### V ITAD #### [facility] [address] [place] [address] Dr. Manuel Callejas Glucose [Mass/Vol] 137 mg/dL Critically high 74-106 [facility] Comment on above: Performed By: #### V ITAD #### [facility] [address] [place] [address] Dr. Manuel Callejas Potassium [Moles/Vol] 3.4 mmol/L Normal 3.4-5.0 [facility] Comment on above: Performed By: #### V ITAD #### [facility] [address] [place] [address] Dr. Manuel Callejas Sodium [Moles/Vol] 143 mmol/L Normal 137-145 [facility] Comment on above: Performed By: #### V ITAD #### [facility] [address] [place] [address] Dr. Manuel Callejas Urea nitrogen [Mass/Vol] 23.0 mg/dL Critically high 7.0-18.0 [facility] Comment on above: Performed By: #### V ITAD #### [facility] [address] [place] [address] Dr. Manuel Callejas Urea nitrogen/Creatinine [Mass ratio] 21.3 mg/mg Normal [facility] Comment on above: Performed By: #### V ITAD #### [facility] [address] [place] [address] Dr. Manuel Callejas URINE T PROTEIN CREAT RATIOo n 02-25-2022 Protein (U) [Mass/Vol] 16.9 mg/dL Critically high <=12.0 [facility] Comment on above: Performed By: #### U RTPCR #### [facility] [address] [place] [address] Dr. Manuel Callejas UR PROT CREAT RAT 0.31 Normal [facility] Comment on above: Performed By: #### U RTPCR #### [facility] [address] [place] [address] Dr. Manuel Callejas URINE CREAT 53.91 mg/dL Normal 20.00-300.00 [facility] Comment on above: Performed By: #### U RTPCR #### [facility] [address] [place] [address] Dr. Manuel Callejas VITAMIN D 25 OHon 02-25-2022 VIT D 25-OH 20.9 ng/mL Normal [facility] Comment on above: Performed By: #### V ITAD #### [facility] [address] [place] [address] Dr. Manuel Callejas VIT D RANGES SEE BELOW Normal [facility] Comment on above: Result Comment: <20 ng/mL Vit D deficient 20 - <30 ng/mL Vit D insufficient 30 - 100 ng/mL Vit D sufficient >100 ng/mL Potential Toxicity Performed By: #### V ITAD #### [facility] [address] [place] [address] Dr. Manuel Callejas Cardiovascular Lab Reporton 01-09-2021 Cardiovascular Lab Report [facility] Patient Name: [facility] MR #: [id number] Physician: Ten Eckert MD Department of Service Date: 01/09/2021 Medicine Birthdate: 1950 Division of Room #: CC Cardiology Adult Cardiovascular Services [facility] [address] [facility]. [place] [id number] Cardiovascular Laboratory Report DIRECT CARDIOVERSION PROCEDURE NOTE [...] form. The patient was brought to the computer lab aide and direct current cardioversion was performed under [...] Dillard MD Date Trans: 01/09/2021 01:21 P/lilao [id number] cc: Patti Thomas M.D. [address] [facility] [place] [address] Normal [facility] POC GLUCOSE LABon 11-30-2020 Glucose [Mass/Vol] 131 mg/dL High 70-100 [facility] Comment on above: Performed By: #### 8 5499 #### [facility] *MRSA/MSSA DNA NASALon 11-29 *MRSA/MSSA DNA NASAL Clinical Report: (D ) Specimen: NASAL SWAB Collected: 11/29/2020 06:30 Status: Final Last Updated: 11/29/2020 11:37 MSSA DNA (Final) Negative MRSA DNA (Final) Negative Normal [facility] Comment on above: Performed By: #### 3 1595 #### [address] Cardiovascular Lab Reporton 11-29-2020 Cardiovascular Lab Report [facility] Patient Name: [facility] Aline MR #: [id number] Department of Physician: Ten Eckert MD Medicine Service Date: 11/29/2020 Division of Birthdate: 1950 Cardiology Room #: 3AB [id number] Adult Cardiovascular Services [place] [address] Cardiovascular Laboratory Report ATRIAL FIBRILLATION ABLATION PROCEDURE NOTE DATE OF PROCEDURE: 11/29/2020 PERFORMING PHYSICIAN: Dr. Ten Eckert CONSENT: Patient NAME OF THE PROCEDURE: Pulmonary [...] mildly enlarged. Esophagus was mapped using the [employer] Solar[employer]D 3D mapping software with esophastar catheter and [...] blo (more content not included)... Normal [facility] POC GLUCOSE LABon 11-29-2020 Glucose [Mass/Vol] 136 mg/dL High 70-100 [facility] Comment on above: Performed By: #### 8 5499 #### [facility] [address] [facility]. [address] Glucose [Mass/Vol] 133 mg/dL High 70-100 [facility] Comment on above: Performed By: #### 8 5499 #### [facility] [address] [facility]. [address] PROTHROMBIN TIMEon 1 INR Coag (PPP) [Relative time] 1.04 {INR} Normal 0.91-1.16 [facility] Comment on above: Result Comment: ACCC P RECOMMENDED INR FOR WARFARIN THERAPY ------- ------- CONDITION INR PROPHYLAXIS OF VENOUS THROMBOSIS 2-3 (HIGH-RISK SURGERY) TREATMENT OF VENOUS THROMBOSIS 2-3 TREATMENT OF PULMONARY EMBOLISM 2-3 PREVENTION OF SYSTEMIC EMBOLISM: 2-3 ACUTE MYOCARDIAL INFARCTION TISSUE HEART VALVES VALVULAR HEART DISEASE ATRIAL FIBRILLATION RECURRENT SYSTEMIC EMBOLISM MECHANICAL HEART VALVE 2.5-3.5 FROM: ORAL ANTICOAGULANTS. MECHANISM OF ACTION, CLINICAL EFFECTIVENESS, AND OPTIMAL THERAPEUTIC RANGE. CHEST 1995;108:231S-246S. Performed By: #### 5 6101 #### [facility] [address] PT Coag (PPP) [Time] 13.6 s Normal 12.3-14.8 [facility] Comment on above: Result Comment: ALL RESULTS MUST BE INTERPRETED WITH RESPECT TO BLOOD DRAWING ARTIFACT OR DILUTION ERROR OF ANTICOAGULANT AT THE TIME OF SAMPLING. Performed By: #### 5 6101 #### [facility] [address] [facility]. [address] TYPE AND CROSSMATCHon 2020 ABO INTERPRETATION B Normal [facility] Comment on above: Performed By: #### 6 2594 #### [facility] [address] [facility]. [address] RH INTERPRETATION Positive Normal [facility] Comment on above: Performed By: #### 6 2594 #### [facility] [address] [facility]. [address] *SARS-CoV-2 COVID-19on 11-27 SARS-CoV-2 (COVID-19) RNA HARPREET+probe Ql (Unsp spec) Not detected Normal Not Detected [facility] Comment on above: Order Comment: The A ptima SARS-CoV-2 assay is a nucleic acid amplification test intended for the qualitative detection of RNA from SARS-CoV-2 isolated and purified from nasopharyngeal ([employer]),oropharyngeal (OP), nasal swab, sputum, and bronchoalveolar lavage (BAL) specimens from patients with signs and symptoms of infection who are suspected of COVID-19. Results are for the identification of SARS-CoV-2 RNA. The SARS-CoV-2 RNA is generally detectable during the acute phase of infection. The Aptima SARS-CoV-2 Assay on the Advizzer and [place] Activation Life system is intended for use by laboratory personnel specifically instructed and trained in the operation of the [place] and [place] Fusion system. The Aptima SARS-CoV-2 assay is [...] information. Performed By: #### 3 1792 #### [place] [address], [facility] CREATININE BLOODon Creatinine [Mass/Vol] 1.06 mg/dL Normal 0.70-1.30 [facility] Comment on above: Performed By: #### 2 5656 #### [place] [address], [facility] GFR/1.73 sq M.predicted among blacks MDRD (S/P/Bld) [Vol rate/Area] mL/min/{1.73_m2} Normal >60 [facility] Comment on above: Performed By: #### 2 5656 #### [place] [address], [facility] GFR/1.73 sq M.predicted among non-blacks MDRD (S/P/Bld) [Vol rate/Area] mL/min/{1.73_m2} Normal >60 [facility] Comment on above: Performed By: #### 2 5656 #### [address] [address], [facility] CTA CHESTon 11-27-2020 CTA CHEST [facility] Department of Radiology [address] [place] [address] [id number] Patient Name: ALINE TOMLIN : 1950 Sex: M Age: Race: White Pt. Location: [facility] Patient Status: D Ordered Date: 10/26/2020 11:15:00 AM Completed Date: 11/27/2020 12:09 PM Requesting Provider: TEN ECKERT Attending Provider: TEN ECKERT Report Copy To: PATTI THOMAS Signs & Symptoms: I48.0 Paroxysmal atrial fibrillation I10 History: Magy OK with Amanda - patient will come early for labs. NPC Req. Per Medicare A/B for CPT 45164 Med Nec-Passed 11/13/20 *SLA Comments: CT pulmonary [...] spondylosis. Electronically signed: Parvin Valencia. Transcribed by: [email or web address], User Resident: Electronically Signed by: CARLO BARILLAS @ 12/09/2020 07:48 AM Normal [facility] Comment on above: Order Comment: CT pu lmonary veins for afib ablation CNOVon 09-01-2019 CNOV Office Visit (CONNOR ) ALINE TOMLIN ([id number]) 1950 M Date Time Provider Department 09/01/19 2:30 PM JEFF WRIGHT During your visit today, we recorded the following information about you: Pulse Blood pressure Weight Height 67/minute 157/79 113.7 kg 1.93 m Jeff Wright MD 09/01/2019 3:43 PM Signed Followed for [...] stone intervention. F/U with Dr. Horner. Jeff Wright MD, FACS Director, Surgical Stone Disease, [facility] [place] chemistry physics teacher, [facility] Medicine Pager [phone] 09/01/2019 Referring Provider: DANNY HORNER [[id number]] Allergies As of Date: 09/01/2019 Noted Allergy [...] Disposition History Recorded Encounter Status:Closed by JEFF WRIGHT MD on 09/01/19 [facility] KENNYTOGREGORIAEACHolonnie 09-01-2019 [facility] Patient Outreach (UROLMN) ALINE TOMLIN ([id number]) 1950 M Date Time Provider Department 09/01/19 JEFF WRIGHT During your visit today, we recorded the [...] pain [R10.9] INVALID FOR* Encounter Status:Closed by [employer], PRODUSER [facility]16[facility] ALINE TOMLIN ([id number]) 1950 M Date Time Provider Department 09/01/19 JEFF WRIGHT During your visit today, we recorded the following information about you: Allergies As of Date: 09/01/2019 Noted Allergy Reaction ADHESIVE TAPE (ROSINS) 06/03/2019 2 - Rash 9 - Itching 14 - Other: See Comments PENICILLINS 06/03/2019 14 - Other: See Comments Date Reviewed: 09/01/2019 Reviewed by: Janene Barroso - Fully Assessed Visit Diagnosis:Renal calculi [N20.0] Order(s):UA CHEMSTRIP ONLY [SQUA] Order #: [id number]. #:[id number] Prescriptions as of 09/01/2019 Sig: METFORMIN 500 [...] pain [R10.9] INVALID FOR* Encounter Status:Closed by [employer], PRODUSER on 09/16/19 Normal [facility] PROGRESSon 09-01-2019 PROGRESS HNO ID: [id number] Author: Jeff Wright Service: ? Author Type: Physician Type: Progress [...] stone intervention. F/U with Dr. Horner. Jeff Wright MD, FACS Director, Surgical Stone Disease, [facility] [place] chemistry physics teacher, [facility] of Medicine Pager [phone] 09/01/2019 Normal [facility] Urinalysison 09-01-2019 Bilirubin, Urine Negative Normal Negative [facility] Comment on above: Performed By: #### U A ####[place] [phone] Clarity (U) Clear Normal Clear [facility] Comment on above: Performed By: #### U A ####[place] [phone] Color (U) Yellow Normal Yellow [facility] Comment on above: Performed By: #### U A ####[place] [phone] Comments SEE COMMENT Normal [facility] Comment on above: Result Comment: Micr oscopic not warranted Performed By: #### U A ####[facility] [place], [place] [phone] Glucose Ql (U) Negative Normal Negative [facility] Comment on above: Performed By: #### U A ####[place] [address] [address] [phone] Hemoglobin/Blood,Ur Negative Normal Negative [facility] Comment on above: Performed By: #### U A ####[facility] [phone] Ketones Ql (U) Negative Normal Negative [facility] Comment on above: Performed By: #### U A ####[address] [address] [address] [place] [phone] Leukest Negative Normal Negative [facility] Comment on above: Performed By: #### U A ####[address] [address] [address] [phone] Nitrite Ql (U) Negative Normal Negative [facility] Comment on above: Performed By: #### U A ####[place] [phone] pH (Bld) 5.5 Normal 4.5-8.0 [facility] Comment on above: Performed By: #### U A ####[place] [phone] Protein (U) [Mass/Vol] Negative Normal Negative [facility] Comment on above: Performed By: #### U A ####[place] [phone] Specific [place], Ur 1.021 Normal 1.005-1.030 [facility] Comment on above: Performed By: #### U A ####[place] [phone] Urine Royer Comment SEE COMMENT Normal [facility] Comment on above: Result Comment: N/A Performed By: #### U A ####[place] [phone] Urobilinogen Qn (U) Normal Normal Normal [facility] Comment on above: Performed By: #### U A ####[address] [address] [address] [phone] CNOVon 06-14-2019 CNOV Office Visit (UROLMN ) ALINE TOMLIN ([id number]) 1950 M Date Time Provider Department 06/14/19 10:00 AM JEFF WRIGHT During your visit today, we recorded the following information about you: Pulse Blood pressure Weight Height 65/minute 143/82 112.9 kg 1.956 m Jeff Wright MD 06/14/2019 11:36 AM Signed Basic HPI: [...] file Gets together: Not on file Attends druze service: Not on file Active member of [...] Negative Negative Ketones, Urine Negative Negative Specific [place], Ur 1.005 - 1.030 1.007 Hemoglobin/Blood,Ur Negative [...] stone 04/30 double J stent placed at [facility] Review, other organ system: GI: Blood: No [...] based on size, location, hounsfield units and vikd-iy-kbabh distance: 80-85% 3. Ureteroscopy - risks of [...] with more than 50% of the total [id number] time of the visit devoted to patient counseling/coordinati on of care. Jeff Wright MD Director, Surgical Stone Disease [facility] [place], [facility] Pager [phone] 06/14/2019 Jeff Wright MD 06/14/2019 11:39 AM Signed Addended by: JEFF WRIGHT MD on: 06/14/2019 11:39 AM Modules accepted: Orders Referring Provider: SELF [200] Allergies As of Date: 06/14/2019 Noted Allergy Reaction ADHESIVE TAPE (ROSINS) 06/03/2019 2 - Rash 9 - Itching 14 - Other: See Comments PENICILLINS 06/03/2019 14 - Other: See Comments Date Reviewed: 06/14/2019 Reviewed by: Janene Barroso - Fully Assessed Primary Visit Diagnosis:Calculus of ureter [N20.1] Other Visit Diagnoses:Essential hypertension [I10] Hyperlipidemia, unspecified hyperlipidemia type [E78.5] Type 2 diabetes mellitus with other specified complication, without long-term current use of insulin (HCC) [E11.69] Family history of nephrolithiasis [Z84.1] Abnormal urinalysis [R82.90] Order(s):URINE CULTURE [SQURCUL] Order #: [id number] Prescriptions as of 06/14/2019 Sig: METFORMIN 500 [...] Disposition History Recorded Encounter Status:Closed by JEFF WRIGHT MD on 06/14/19 Normal [facility] Urinalysison 06-14-2019 Bilirubin, Urine Negative Normal Negative Barbra [facility] Comment on above: Performed By: #### U A #### [facility] [address] [place] [address] Cast SEE COMMENT Critically abnormal 0 [facility] Comment on above: Result Comment: 1-3 Hyaline Cast Performed By: #### U A #### [facility] [address] [place], [place] [address] Clarity (U) Clear Normal Clear [facility] Comment on above: Performed By: #### U A #### [facility] [address] [place], [place] [address] Color (U) Yellow Normal Yellow [facility] Comment on above: Performed By: #### U A #### [place] [phone] [place] [address] Comments SEE COMMENT Normal [facility] Comment on above: Result Comment: Micr oscopic Examination Performed Performed By: #### U A #### [facility] [facility] [place] [address] Glucose Ql (U) Negative Normal Negative [facility] Comment on above: Performed By: #### U A #### [facility] [address] [place] [address] Hemoglobin/Blood,Ur 3+ Critically abnormal Negative [facility] Comment on above: Performed By: #### U A #### [facility] [address] [place] [phone] Ketones Ql (U) Negative Normal Negative [facility] Comment on above: Performed By: #### U A #### [facility] [address] [place] [phone] Leukest 1+ Critically abnormal Negative [facility] Comment on above: Performed By: #### U A #### [facility] [address] [place] [address] Nitrite Ql (U) Negative Normal Negative [facility] Comment on above: Performed By: #### U A #### [facility] [address] [place] [phone] pH (Bld) 5.5 Normal 4.5-8.0 [facility] Comment on above: Performed By: #### U A #### [place] [phone] [phone] Protein (U) [Mass/Vol] Trace Critically abnormal Negative [facility] Comment on above: Performed By: #### U A #### [place] [phone] RBC (U) [#/Vol] /uL Critically abnormal 0-3 [facility] Comment on above: Performed By: #### U A #### [place] [phone] Specific [place], Ur 1.007 Normal 1.005-1.030 [facility] Comment on above: Performed By: #### U A #### [place] [phone] Urine Royer Comment SEE COMMENT Normal [facility] Comment on above: Result Comment: N/A Performed By: #### U A #### [place] [phone] Urobilinogen Qn (U) Normal Normal Normal [facility] Comment on above: Performed By: #### U A #### [place] [phone] WBC (Bld) [#/Vol] 0-5 Normal 0-5 [facility] Comment on above: Performed By: #### U A #### [place] [phone] Urine Cultureon 06-14-2019 Bacteria identified Cx Nom (U) Sp. Request/Comment: - Specimen received in preservative Culture Result - No growth (<1,000 CFU/ml) Normal [facility] Comment on above: Performed By: #### U RCUL #### [place] [phone] CNPTOUTREACHon 06-13-2019 [facility] Patient Outreach (UROERICAN) ALINE TOMLIN ([id number]) 1950 M Date Time Provider Department 06/13/19 JEFF WRIGHT During your visit today, we recorded the following information about you: Allergies As of Date: 06/13/2019 (Not on File) Date Reviewed: Never Reviewed Visit Diagnosis:Renal calculi [N20.0] Order(s):UA CHEMSTRIP ONLY [SQUA] Order #: [id number]. #:[id number] Problem List As Of Date: 06/13/2019 (None) Encounter Status:Closed by [place] on 06/28/19 [facility] PROGRESSon 06-13-2019 PROGRESS HNO ID: [id number] Author: Jeff Wright Service: ? Author Type: Physician Type: Progress [...] file Gets together: Not on file Attends druze service: Not on file Active member of [...] Negative Negative Ketones, Urine Negative Negative Specific [place], Ur 1.005 - 1.030 1.007 Hemoglobin/Blood,Ur Negative [...] stone 04/30 double J stent placed at [facility] Review, other organ system: GI: Blood: No Constipation: No Diarrhea: No Nausea/Vomiting: No OTHER: denies pain Claudette Cerda LOAN INSPECTOR UROLOGY NOTE: We had the pleasure of [...] based on size, location, hounsfield units and wycs-ne-hpazk distance: 80-85% 3. Ureteroscopy - risks of [...] with more than 50% of the total ehxy-he-eigt time of the visit devoted to patient counseling/coordinati on of care. Jeff Wright MD Director, Surgical Stone Disease [facility] [place], [facility] Pager [phone] 06/14/2019 [facility] AK-XR KUB 1 VIEW IMPORTon AK-XR KUB 1 VIEW IMPORT Images were obtained outside of [facility] [id number] N [facility] AK-XR KUB 1 VIEW IMPORT Images were obtained outside of [facility] [id number] N [facility] RF-XR RETROGRADE PYELOGRAM I MPORTon 04-30-2019 RF-XR RETROGRADE PYELOGRAM IMPORT Images were obtained outside of [facility] [id number] N [facility] RF-XR RETROGRADE PYELOGRAM IMPORT Images were obtained outside of [facility] [id number] N [facility] CT-CT ABD/PELVIS W CON IMPOR Ton 04-29-2019 CT-CT ABD/PELVIS W CON IMPORT Images were obtained outside of [facility] [id number] N Normal [facility] AK-CT ABD/PELVIS W CON IMPOR Ton 04-29-2019 AK-CT ABD/PELVIS W CON IMPORT Images were obtained outside of [facility] [id number] N Normal [facility] Vital Signs Date Time Vital Sign Value Performing Clinician Facility 12-16-2024 13:05-0500 Body mass index (BMI) [Ratio] 29.05 kg/m2 Patti Thomas DO Work Phone: [facility] 12-16-2024 13:05-0500 Body weight 111.13 kg Patti Dunn-Williamson DO Work Phone: [facility] 12-16-2024 13:05-0500 Diastolic blood pressure 78 mm[Hg] Patti Dunn-Williamson DO Work Phone: [facility] 12-16-2024 13:05-0500 Heart rate 72 /min Patti Dunn-Williamson DO Work Phone: [facility] 12-16-2024 13:05-0500 SaO2% (BldA) [Mass fraction] 97 % Patti Dunn-Williamson DO Work Phone: [facility] 12-16-2024 13:05-0500 Systolic blood pressure 138 mm[Hg] Patti Dunn-Williamson DO Work Phone: [facility] 08-09-2024 13:43-0400 Body mass index (BMI) [Ratio] 29.1 kg/m2 Patti Dunn-Williamson DO Work Phone: [facility] 08-09-2024 13:43-0400 Body weight 111.31 kg Patti Dunn-Williamson DO Work Phone: [facility] 08-09-2024 13:43-0400 Diastolic blood pressure 76 mm[Hg] Patti Dunn-Williamson DO Work Phone: [facility] 08-09-2024 13:43-0400 Heart rate 67 /min Patti Dunn-Williamson DO Work Phone: [facility] 08-09-2024 13:43-0400 SaO2% (BldA) [Mass fraction] 99 % Patti Dunn-Williamson DO Work Phone: [facility] 08-09-2024 13:43-0400 Systolic blood pressure 138 mm[Hg] Patti Dunn-Williamson DO Work Phone: [facility] 03-02-2024 09:18-0400 Body temperature 97.7 [degF] Danny HORNER [facility] 03-02-2024 09:18-0400 Diastolic blood pressure 82 mm[Hg] Danny COOK [facility] 03-02-2024 09:18-0400 Heart rate 71 /min Danny COOK [facility] 03-02-2024 09:18-0400 Respiratory rate 19 /min Danny COOK [facility] 03-02-2024 09:18-0400 Systolic blood pressure 137 mm[Hg] Danny COOK [facility] 10-28-2023 07:54-0500 Blood Pressure Location Danny COOK [facility] 10-28-2023 07:54-0500 Diastolic blood pressure 76 mm[Hg] Danny COOK [facility] 10-28-2023 07:54-0500 Heart rate 62 /min Danny COOK [facility] 10-28-2023 07:54-0500 Respiratory rate 16 /min Danny COOK [facility] 10-28-2023 07:54-0500 Systolic blood pressure 137 mm[Hg] Danny COOK [facility] 09-08-2023 13:48-0400 Diastolic blood pressure 85 mm[Hg] Danyn COOK [facility] 09-08-2023 13:48-0400 Heart rate 77 /min Danny COOK [facility] 09-08-2023 13:48-0400 Systolic blood pressure 136 mm[Hg] Danny HORNER [facility] 09-11-2021 16:00-0400 Body height 193.04 cm Cirilo Ori Other [facility] Other 09-11-2021 16:00-0400 Body mass index (BMI) [Ratio] 28.6 kg/m2 Cirilo Ori Other [facility] Other 09-11-2021 16:00-0400 Body temperature 96.2 [degF] Cirilo Ori Other [facility] Other 09-11-2021 16:00-0400 Body weight 106.6 kg Cirilo Ori Other [facility] Other 09-11-2021 16:00-0400 Diastolic blood pressure 75 mm[Hg] Cirilo Ori Other [facility] Other 09-11-2021 16:00-0400 Respiratory rate 18 /min Cirilo Ori Other [facility] Other 09-11-2021 16:00-0400 SaO2% (BldA) [Mass fraction] 98 % Icrilo Ori Other [facility] Other 09-11-2021 16:00-0400 Systolic blood pressure 135 mm[Hg] Cirilo Ori Other [facility] Other Encounters Encounter Date Encounter Type Care Provider Facility Start: 03-07-2026 ambulatory Danny HORNER Facility :[facility] Start: 03-08-2025 End: 03-08-2025 ambulatory Danny HORNER Facility:[facility] Start: 02-22-2025 End: 02-22-2025 Clinisync Result Encounter Patti Franko Dunn-Williamson DO Work Phone: [facility] Unsolicited Start: 02-22-2025 End: 02-22-2025 Clinisync Result Encounter Patti GaticaWilliamson DO Work Phone: [facility] Unsolicited Start: 02-22-2025 End: 02-22-2025 ambulatory PATTI THOMAS Facility[facility] Start: 02-22-2025 End: 02-22-2025 Patient encounter procedure Danny HORNER [facility] Start: 12-16-2024 End: 12-16-2024 Office outpatient visit 25 minutes Patti Dunn-Williamson DO Work Phone: [facility] Comment on above: Mixed hyperlipidemia (CMS/HCC) (Primary Dx); Gastroesophageal reflux disease with esophagitis without hemorrhage; Diabetes mellitus with nephropathy (CMS/HCC); Persistent atrial fibrillation (HCC) (CMS/HCC); Stage 3b chronic kidney disease (HCC) (CMS/HCC); Benign essential hypertension (CMS/HCC); KUSH on CPAP; CPAP (continuous positive airway pressure) dependence; Sensorineural hearing loss, bilateral Start: 12-16-2024 End: 12-16-2024 ambulatory PATTI THOMAS Not Available Start: 11-22-2024 End: 11-22-2024 ambulatory [facility] Start: 08-09-2024 End: 08-09-2024 Office outpatient visit 25 minutes Patti Manuely DO Work Phone: [employer] [facility] Comment on above: Medicare annual well ness visit, subsequent (Primary Dx); Diabetic glomerulopathy (CMS/HCC); Mixed hyperlipidemia (CMS/HCC); Diabetes mellitus with nephropathy (CMS/HCC); Persistent atrial fibrillation (HCC) (CMS/HCC); Stage 3b chronic kidney disease (HCC) (CMS/HCC); Benign essential hypertension (CMS/HCC); KUSH on CPAP; Need for immunization against influenza; CPAP (continuous positive airway pressure) dependence; Other thrombophilia (CMS/HCC); ACP (advance care planning) Start: 08-09-2024 End: 08-09-2024 Patient encounter procedure Patti Thomas DO Work Phone: [facility] Start: 08-09-2024 End: 08-09-2024 ambulatory PATTI THOMAS Not Available Start: 05-24-2024 End: 05-24-2024 ambulatory [facility] Start: 04-05-2024 End: 04-05-2024 ambulatory PATTI THOMAS Not Available Start: 03-02-2024 End: 03-02-2024 Patient encounter procedure Danny HORNER [facility] Start: 10-28-2023 End: 10-28-2023 Patient encounter procedure Danny HORNER [facility] Start: 10-14-2023 End: 10-14-2023 Patient encounter procedure Danyn HORNER [facility] Start: 10-12-2023 End: 10-12-2023 Patient encounter procedure Danny HORNER [facility] Start: 09-08-2023 End: 09-08-2023 Patient encounter procedure Danny HORNER [facility] [place] Start: 02-02-2023 End: 02-03-2023 ambulatory PATTI GONG Facility:[facility] Start: 07-08-2022 End: 07-09-[address] PATTI GONG Facility:[facility] Start: 05-27-2022 End: 05-28-[address] DOCTOR METZGER Facility:[facility] Start: 02-25-2022 End: 02-26-[address] DOCTOR METZGER Facility:[facility] Start: 02-05-2022 End: 02-05-2022 Patient encounter procedure Danny Aurora HORNER [facility] Start: 09-11-2021 End: 09-11-2021 ambulatory Cirilo Ori Other [facility] Other Start: 09-11-2021 Office outpatient vi sit 15 minutes Cirilo Ori [facility] Start: 01-09-2021 End: 01-10-2021 ambulatory TEN ECKERT Facility:[facility] Start: 11-29-2020 End: 11-30-2020 ambulatory PATTI THOMAS Facility:[facility] Start: 11-27-2020 End: 11-28-2020 ambulatory TEN ECKERT Facility:[facility] Procedures Date Procedure Procedure Detail Performing Clinician Start: 02-22-2025 [facility]/CR RATIO Patti OchoaaverSeverinoWilliamson DO Work Phone: Start: 12-16-2024 Hemoglobin glycosylated a1c Patti GaticaWilliamson DO Work Phone: Start: 08-29-2024 Cyanocobalamin vitamin b-12 Patti Ochoaaver-Williamson DO Work Phone: Start: 08-29-2024 Lipid panel Patti Acosta DO Work Phone: Start: 06-15-2024 Hemoglobin glycosylated a1c Patti OchoaaverSeverinoWilliamson DO Work Phone: Start: 02-15-2024 Urine albumin quantitative Patti GaticaWilliamson DO Work Phone: Start: 11-06-2022 Colonoscopy Patti Aguero DO Work Phone: Start: 11-29-2020 Antibody screen PATTI THOMAS Comment on above: Performed By: #### [id number] #### [facility] [address], [facility] Start: 11-29-2020 ELECTROPHYS MAP 3D ADD-ON PATTI THOMAS Start: 11-29-2020 ELECTROPHYSIOLOGY EVALUATION PATTI THOMAS Start: 11-29-2020 INTRACARDIAC ECG (ICE) PATTI THOMAS Start: 11-29-2020 STIMULATION PACING HEART PATTI THOMAS Start: 11-29-2020 TX ATRIAL FIB PULM VEIN ISOL PATTI THOMAS Start: 07-25-2019 Cystoscopic removal of ureteric stent Danny Vers[employer] Start: 07-14-2019 Cysto w/ homium laser [employer] Start: 06-03-2019 Extracorporeal shock wave lithotripsy of calculus of kidney [employer] Start: 05-18-2019 Ureteral stent-place ment set (physical object) [facility] [facility] Cystoscopy [facility] excision of skin cancers 1 [employer] Comment on above: basal and squamos ce ll Tonsillectomy V[employer] Plan of Treatment Date Care Activity Detail Author Start: 11-06-2032 Screening for malign ant neoplasm of colon [facility] Start: 09-05-2026 Glaucoma screening Diabetes: R etinopathy Screening [facility] Start: 08-09-2025 Medicare Annual Wellness (AWV) Medicare Annual Wellness (AWV) [facility] Start: 08-09-2025 Pneumococcal Vaccine : 65+ Years (1 of 2 - PCV) Pneumococcal Vaccine: 65+ Years (1 of 2 - PCV) [facility] Comment on above: Postponed from 10/24 (Patient Refused) Postponed from 10/24 (Patient Refused) Start: 08-04-2025 Screening for malign ant neoplasm of colon FIT-[facility] Start: 04-14-2025 End: 04-14-2025 Patient encounter procedure 04/14/2025 10:45 AM EDT Office Visit [facility] [address] [place] [phone] Patti Thomas, DO [address] [place] [address] [facility] Start: 03-15-2025 Hemoglobin A1c measurement Diabetes: Hemoglobin A1C [facility] Start: 02-14-2025 Urine screening for protein Diabetes: Urine Protein Screening [facility] Start: 01-02-2025 End: 12-16-2025 Microalbumin/Creatinine panel in random Urine Microalbumin / creatinine urine ratio Lab Routine Diabetes mellitus with nephropathy ([facility]) Expected: 01/02/2025, Expires: 12/16/2025 [facility] Work Phone: Comment on above: Expected: 01/02/2025 , Expires: 12/16/2025 Start: 12-16-2024 End: 12-16-2024 Patient encounter procedure 12/16/2024 1:00 PM EST Office Visit [facility] [address] [place] [phone] Patti Thomas, DO [address] [place] [address] [facility] Start: 09-15-2024 Hemoglobin A1c measurement Diabetes: Hemoglobin A1C [facility] Start: 1950 Screening for malign ant neoplasm of colon [facility] Immunizations Immunization Date Immunization Notes Care Provider Fa cility 08-09-2024 Seasonal trivalent influenza vaccine, adjuvanted, preservative free Patti Thomas DO Work Phone: [facility] 07-23-2023 influenza virus vaccine, unspecified formulation Danny HORNER [facility] 07-23-2023 Influenza, Seasonal, Quadrivalent, Adjuvanted Patti Dunn-Williamson DO Work Phone: [facility] 07-25-2022 influenza virus vaccine, unspecified formulation [facility] 07-25-2022 influenza, high dose seasonal, preservative-free Patti Dunn-Williamson DO Work Phone: [facility] 01-29-2021 SARS-CoV-2 (COVID-19 ) mRNA BNT-162b2 vax [facility] 01-07-2021 SARS-CoV-2 (COVID-19 ) mRNA BNT-162m5 vax [facility] 08-03-2020 influenza virus vaccine, unspecified formulation [facility] 08-03-2020 Seasonal trivalent influenza vaccine, adjuvanted, preservative free Patti Dunn-Williamson DO Work Phone: [facility] 08-29-2019 influenza virus vaccine, unspecified formulation Vigilix [facility] 08-29-2019 Seasonal trivalent influenza vaccine, adjuvanted, preservative free Patti Dunn-Williamson DO Work Phone: [facility] 08-26-2018 influenza virus vaccine, unspecified formulation Vig[facility]ix [facility] 08-26-2018 Seasonal trivalent influenza vaccine, adjuvanted, preservative free Patti Dunn-Williamson DO Work Phone: [facility] 10-06-2017 tetanus toxoid, redu laura diphtheria toxoid, and acellular pertussis vaccine, adsorbed Patti Dunn-Williamson DO Work Phone: [facility] 08-31-2017 influenza, high dose seasonal, preservative-free Patti Dunn-Williamson DO Work Phone: [facility] 09-01-2016 influenza, injectabl e, quadrivalent, preservative free Patti Dunn-Williamson DO Work Phone: [facility] 08-30-2015 seasonal influenza, intradermal, preservative free Patti Dunn-Williamson DO Work Phone: [facility] 10-27-2014 influenza, seasonal, injectable, preservative free Patti Dunn-Williamson DO Work Phone: [facility] Payers Date Payer Category Payer Unknown [id number] 2022 Private Health Insurance [facility] [employer] [id number] 5 2015 Medicare [id number] 5 1959 Medicare [id number] 1959 Unknown [id number] 1950 Unknown [id number] [id number] .2.647 1950 Unknown [id number] 2.840.1.427148.3.579 .2.647 1950 Unknown [id number] 2.16.840.1.964133.3.579 .2.647 1950 Unknown [id number] 2.16.840.1.436282.3.579 .2.593 1950 Unknown [id number] 2.16.840.1.451257.3.579 .2.593 1950 Unknown [id number] 2.16.840.1.425939.3.579 .2.593 1950 Unknown [id number] 2.16.840.1.830941.3.579 .2.593 1950 Unknown [id number] 2.16.840.1.845401.3.579 .2.1259 1950 Unknown [id number] 2.16.840.1.512482.3.579 .2.1259 1950 Unknown [id number] 2.16.840.1.452247.3.579 .2.1259 1950 Unknown [id number] 2.16.840.1.459672.3.579 .2.727 1950 Unknown [id number] 2.16.840.1.222545.3.579 .2.727 1950 Unknown [id number] 2.16.840.1.743582.3.579 .2.727 1950 Unknown [id number] 2.16.840.1.056680.3.579 .2.727 Unknown [id number] Social History Date Type Detail Facility Start: 02-05-2022 End: 03-02-2024 Tobacco smoking status Never smoked tobacco (finding) [facility] Other Tobacco smoking status Never [facility] Start: 08-02-2024 End: 09-12-2024 Sex Assigned At Male [facility] Other Start: 07-22-2023 Tobacco use and exposure Smokeless tobacco non-user [facility] Start: 09-12-2024 End: 12-16-2024 Alcoholic beverage intake Ex-drinker (finding) [facility] Start: 08-02-2024 End: 09-12-2024 [address] of [address] [facility] Start: 1950 Sex assigned at Not on file N [facility] Sexual Orientation [facility] Start: 05-09-2019 Sex Male (finding) [facility] Functional Status Date Assessment Result Facility 03-02-2024 Functional Status N/A [facility] 10-28-2023 Functional Status N/A [facility] 10-02-2023 Functional Status N/A [facility] 09-08-2023 Functional Status N/A [facility] [place] Clinical Notes 09-11-2021 to 03-08-2025 Patti Thomas, DO - 12/16/2024 1:47 PM ESTSandra Franko Thomas, DO - 12/16/2024 1:45 PM ESTSandra Franko Thomas, DO - 12/16/2024 1:44 PM ESTSandra Franko Thomas, DO - 12/16/2024 1:44 PM EST Note Date & Type Note Facility 03-08-2025 Note Patient Education Oncology Prostate Cancer Screening Prostate [...] recommendations. In general, screening is recommended if: ??? You are age 50 to 70 and [...] have a 10- to 15-year life expectancy. ??? You are younger than age 50, and [...] In general, screening is not recommended if: ??? You are younger than age 40. ??? You are between the ages of 40 and 49 and you have no risk factors. ??? You are 70 years of age or [...] high PSA levels may be caused by: ??? Prostate cancer. ??? An enlarged prostate that is not caused by cancer (benign prostatic hyperplasia, or BPH). This condition is very common in older men. ??? A prostate gland infection (prostatitis) or urinary tract infection. ??? Certain medicines such as male hormones (like [...] you may need more tests, such as: ??? A physical exam to check the size of your prostate gland, if not done as part of screening. ??? Blood and imaging tests. ??? A procedure to remove tissue samples from your prostate gland for testing (biopsy). This is the only way to know for certain if you have prostate cancer. What are the benefits of prostate cancer screening? Screening can help to identify cancer at an early stage, before symptoms start and when the cancer can be treated more easily. ??? There is a small chance that screening [...] Questions to ask your health care provider ??? When should I start prostate cancer screening? What is my risk for prostate cancer? How often do I need screening? What type of screening tests do I need? How do I get my test results? What do my results mean? Do I need treatment? Where to find more information ??? The [place] [employer]: www.cancer.org ??? [place] [employer]: www.auanet.org Contact a health care provider if: ??? You have difficulty urinating. ??? You have pain when you urinate or ejaculate. ??? You have blood in your urine or semen. ??? You have pain in your back or in the area of your prostate. Summary ??? Prostate cancer is a common type of cancer in men. The prostate gland (more content not included)... [facility] 12-16-2024 History of Present illness Narrative Associated Problem(s): Gastroesophageal reflux disease with esophagitis without hemorrhage -Pt advised to avoid food triggers and follow conservative management measures (including avoiding tight fitting pants, weight management, and elevating HOB as indicated) to keep GERD symptoms under control. -Take medications as recommended and monitor for alarm symptoms . Associated Problem(s): KUSH on CPAP He is compliant with tx Associated Problem(s): Benign essential hypertension (CMS/HCC) His BP is doing fine on current rx. Based on review of patient's medications and current medical status; continuation of medications most appropriate. Compliance with medications and/or management recommendations encouraged. Monitor Associated Problem(s): Stage 3b chronic kidney disease (HCC) (CMS/HCC) -We will continue to monitor your renal function for any significant decline in eGFR (which is a measure of how well your kidneys are working). We will continue to work to optimally control any underlying conditions that are associated with worsening effects on kidney function and I will adjust medications as needed due to any changes in your kidney function. Associated Problem(s): Persistent atrial fibrillation (HCC) (CMS/HCC) He saw his Jack Machine Operator recently. -At this time, rate is adequately controlled on current medications. Anticoagulation is being tolerated without any evidence of significant adverse effect. Will continue current regimen and monitor. Associated Problem(s): Diabetes mellitus with nephropathy (CMS/HCC) -He admits that he has been celebrating quite a bit the last couple months (including his and Arielle's 50th wedding anniversary). He reports he started making more appropriate food choices in the last week, so he expects his A1c to be better at his next appt. Will not make any medication changes at this time. -Chart reviewed to make sure patient is up to date on screenings for DM related comorbidities (ie annual dilated eye exam, annual ABDULLAHI and other labs and reminded to do daily foot exams). Specific goals for A1c and BP were reviewed and ways to achieve this goals discussed. ---he needs ABDULLAHI. Order provided and he can do with upcoming labs for Urologist Associated Problem(s): Mixed hyperlipidemia (CMS/HCC) -The importance of dietary modification, regular cardiovascular activity and compliance with any prescribed medication for longterm management/control of lipids has been discussed. Since high cholesterol (especially LDL) is associated with an elevated risk of cardiovascular disease, which includes coronary artery disease, stroke and peripheral vascular disease, and has also been linked to diabetes and high blood pressure risks, by appropriately treating LDL, these risks can be reduced. Images from the original note were not included. Subjective Patient ID: Aline Tomlin (: 1950) is a 74 y.o. male who presents for Routine 4 Mo Follow Up. HPI : Aline is being seen today for a routine four month follow up. Pt.'s lab results from 08/2024 are documented in EHR for reference. ([facility]) Care gaps indicate recommendation for an HbA1c and staff will obtain this in office today. Diabetes Management -DM was diagnosed several years ago -Associated complications: CKD 3, Hx of Diabetic Retinopathy -Current Medications: Metformin, Fosinopril, Simvastatin. Jardiance added ~04/2024 and metformin decreased to daily. -Currently reports doing FSBG checks once a day and readings rangin-140s -Previous A1c completed: in 06/2024 = 6.7% -Most recent A1c: in 12/2024 = 7.3% (up from previous- he admits to too many sweets the last few months) -Last ABDULLAHI: 07/2023-- order provided 12/16/2024 -Last lipids: 08/2024 -Last DM eye exam completed: 09/05/24 -Findings on eye exam: No evidence of DR -He sees Podiatry (Kalpesh) at the [facility]- last appt 12/12/2024 Current Outpatient Medications Medication Instructions amLODIPine (NORVASC) 10 mg, Oral, Daily cloNIDine (CATAPRES) 0.2 mg, 2 times daily Eliquis 5 mg, 2 times daily empagliflozin (Jardiance) 25 MG 0.5 tablets, Daily fosinopril (Monopril) 40 MG tablet TAKE ONE TABLET BY MOUTH DAILY FOR 90 DAYS metFORMIN (GLUCOPHAGE) 500 mg, Oral, Daily, Dose decreased per [facility] metoprolol succinate XL (Toprol-XL) 50 MG 24 hr tablet TAKE ONE TABLET BY MOUTH DAILY FOR 90 DAYS omeprazole (PRILOSEC) 20 mg, Oral, Daily in the morning, Do not crush or chew. potassium chloride CR (Klor-Con M20) 20 MEQ ER tablet 20 mEq, Oral, 3 times daily simvastatin (Zocor) 40 MG tablet TAKE ONE TABLET BY MOUTH DAILY FOR 90 DAYS triamcinolone (Kenalog) 0.1 % cream Topical, 2 times daily, To affected areas Allergies Allergen Reactions Hydrochlorothiazide Other Reaction(s): low K+ and Mg++ Penicillin G Unknown Patient Active Problem List Diagnosis Benign essential hypertension (CMS/HCC) Cortical age-related cataract of both eyes KUSH on CPAP Diabetes mellitus with nephropathy (CMS/HCC) Diverticulosis Hyperplasia of prostate with lower urinary tract symptoms (LUTS) Gastroesophageal reflux disease with esophagitis without hemorrhage Mixed hyperlipidemia (CMS/HCC) Persistent atrial fibrillation (HCC) (CMS/HCC) Sensorineural hearing loss, bilateral Stage 3b chronic kidney disease (HCC) (CMS/HCC) CPAP (continuous positive airway pressure) dependence Dermatitis Knee joint stiffness, bilateral Social History Tobacco Use Smoking status: Never Smokeless tobacco: Never Substance Use Topics Alcohol use: Not Currently Drug use: Never Review of Systems Constitutional: Negative for appetite change, chills, fatigue and fever. HENT: Negative for ear pain, hearing loss, nosebleeds, trouble swallowing and voice change. Gastrointestinal: Negative for abdominal pain, blood in stool, constipation, diarrhea, nausea and vomiting. Genitourinary: Positive for difficulty urinating and hematuria. Negative for dysuria. Hx BPH and hematuria. He follows with Urologist (Dr Horner). He had Rezum procedure ~09/2023 Musculoskeletal: Negative for arthralgias, back pain and gait problem. 08/2024- noting knees are getting more stiff. Especially after sitting in chair or car. Some locking, no falls. Walking and stretching seems to help. No significant pain at this time. Neurological: Negative for dizziness, tremors, seizures, speech difficulty, weakness, light-headedness, numbness and headaches. Psychiatric/Behavioral: Negative for confusion, hallucinations and sleep disturbance. Endocrine: Negative for polydipsia, polyphagia and polyuria. Objective Vital signs: BP 138/78 Pulse 72 Wt 245 lb SpO2 97% BMI 29.05 kg/m Recent Results (from the past 12 weeks) POCT glycated hemoglobin, total docked device Collection Time: 12/16/24 1:15 PM Result Value Ref Range Hemoglobin A1C 7.3 Physical Exam Constitutional: General: He is not in acute distress. Appearance: Normal appearance. HENT: Head: Normocephalic. Ears: Comments: He has bilateral hearing aids Eyes: General: No scleral icterus. Extraocular Movements: Extraocular movements intact. Conjunctiva/sclera: Conjunctivae normal. Neck: Vascular: No carotid bruit. Cardiovascular: Rate and Rhythm: Normal rate and regular rhythm. Heart sounds: No murmur heard. Pulmonary: Effort: Pulmonary effort is normal. No respiratory distress. Breath sounds: Normal breath sounds. No wheezing or rhonchi. Musculoskeletal: General: Swelling present. Normal range of motion. Cervical back: Normal range of motion. Comments: 1+ bilateral ankle edema Skin: General: Skin is warm and dry. Coloration: Skin is not jaundiced. Findings: No rash. Neurological: General: No focal deficit present. Mental Status: He is alert and oriented to person, place, and time. Motor: No weakness. Gait: Gait normal. Psychiatric: Mood and Affect: Mood normal. Thought Content: Thought content normal. Judgment: Judgment normal. Assessment/Plan Problem List Items Addressed This Visit Diabetes mellitus with nephropathy ([facility]/HCC) Overview Prescribed Metformin 03/2024- will add jardiance [facility]) Current Assessment & Plan -He admits that he has been celebrating quite a bit the last couple months (including his and Arielle's 50th anniversary). He reports he started making more appropriate food choices in the last week, so he expects his A1c to be better at his next appt. Will not make any medication changes at this time. -Chart reviewed to make sure patient is up to date on screenings for DM related comorbidities (ie annual dilated eye exam, annual ABDULLAHI and other labs and reminded to do daily foot exams). Specific goals for A1c and BP were reviewed and ways to achieve this goals discussed. ---he needs ABDULLAHI. Order provided and he can do with upcoming labs for Urologist Relevant Orders POCT glycated hemoglobin, total docked device (Completed) Microalbumin / creatinine urine ratio Mixed hyperlipidemia ([facility]) - Primary Overview Prescribed simvastatin 40 mg daily 07/2023- TC-138; TG-38, HDL-44, LDL- 86 --- 08/2024: could be an interaction between the amlodipine and simvastatin, but he has been on both these at current doses and there has not been any issue. Will continue to monitor for now. 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 Since high cholesterol (especially LDL) is associated with an elevated risk of cardiovascular disease, which includes coronary artery disease, stroke and peripheral vascular disease, and has also been linked to diabetes and high blood pressure risks, by appropriately treating LDL, these risks can be reduced. Persistent atrial fibrillation (HCC) (CMS/HCC) Overview Prescribed Eliquis and metoprolol Current Assessment & Plan He saw his Jack Machine Operator recently. -At this time, rate is adequately controlled on current medications. Anticoagulation is being tolerated without any evidence of significant adverse effect. Will continue current regimen and monitor. Stage 3b chronic kidney disease (HCC) ([facility]/HCC) Overview Adding Jardiance 03/2024 Current Assessment & Plan -We will continue to monitor your renal function for any significant decline in eGFR (which is a measure of how well your kidneys are working). We will continue to work to optimally control any underlying conditions that are associated with worsening effects on kidney function and I will adjust medications as needed due to any changes in your kidney function. Benign essential hypertension ([facility]) Overview Prescribed amlodipine, fosinopril and metoprolol Current Assessment & Plan His BP is doing fine on current rx. Based on review of patient's medications and current medical status; continuation of medications most appropriate. Compliance with medications and/or management recommendations encouraged. Monitor KUSH on CPAP Overview -Since untreated sleep apnea is linked to high blood pressure, diabetes, liver problems and possibly even dementia it is important to be compliant with recommended treatment. Adults with untreated moderate to severe sleep apnea are more than twice as likely to as those who do not have it. Lifestyle changes like losing weight, avoiding alcohol before bedtime and quitting smoking can be helpful for retirement management. But the most effective treatment is continuous positive airway pressure. So it is important to be compliant with prescribed treatment Current Assessment & Plan He is compliant with tx Gastroesophageal reflux disease with esophagitis without hemorrhage Overview Prescribed omeprazole Current Assessment & Plan -Pt advised to avoid food triggers and follow conservative management measures (including avoiding tight fitting pants, weight management, and elevating HOB as indicated) to keep GERD symptoms under control. -Take medications as recommended and monitor for alarm symptoms . Relevant Medications omeprazole (PriLOSEC) [address] capsule CPAP (continuous positive airway pressure) dependence Overview He reports he is using nightly and continues to have good response Sensorineural hearing loss, bilateral Overview She has hearing aids Health Maintenance Topic Date Due Pneumococcal Vaccine: 65+ Years (1 of 2 - PCV) 08/09/2025 (Originally 1956) Diabetes: Urine Protein Screening 02/14/2025 Diabetes: Hemoglobin A1C 03/15/2025 Medicare Annual Wellness (AWV) 08/09/2025 Diabetes: Retinopathy Screening 09/05/2026 Colorectal Cancer Screening 11/06/2032 Influenza Vaccine Completed Immunization History Administered Date(s) Administered Influenza, High Dose Seasonal, Preservative Free 08/31/2017, 07/25/2022 Influenza, Seasonal, Quadrivalent, Adjuvanted 07/23/2023 Influenza, injectable, quadrivalent, preservative free 09/01/2016 Influenza, seasonal, injectable, preservative free 10/27/2014 Influenza, seasonal, intradermal, preservative free 08/30/2015 Influenza, trivalent, adjuvanted 08/26/2018, 08/29/2019, 08/03/2020, 08/09/2024 Pfizer Purple Cap SARS-CoV-2 Vaccination 01/07/2021, 01/29/2021 Tdap 10/06/2017 I spent a total of 28 minutes on the date of the service which included: time spent preparing to see the patient by reviewing last office note and chronic conditions, talking to the patient/documenting in the chart, examining the patient, placing orders in the chart and documenting in the chart after the visit. Protocols reviewed and updated. A collaborative plan of care has been created for pt regarding specific health concerns. Any barriers to care have been identified and addressed. Any part of this document that has been added/copied from other documents has been reviewed for accuracy and updated as appropriate at the time of the patient encounter. -Follow up in about 4 months (around 04/15/2025) for routine monitoring and management of chronic conditions. Patti Thomas D.O. Board Certified Laborer Cutting Tool documented in this encounter [facility] 11-22-2024 Note [place] Cardiology Consul t Note Reason for visit: s/p PVI 11/22/24 Patient here for 6 mo follow up persistent afib, hypertension, and hyperlipidemia. He's still able to walk 4 miles during the weekdays without problems. Denies chest pain, SOB, palpitations, lightheadedness/syncope, and bleeding on Eliquis. No recent labs or imaging. BP readings are high in 150-160s. On Clonidine 0.1mg bid, Toprol XL 50 every day, Fosinopril 40 every day, Norvasc 10mg every day. Pulse check: SR. 05/24/24 Patient here for 6 mo follow up persistent afib, hypertension, and hyperlipidemia. Had echo in Oct 2023 after last apt Which revealed normal EF with moderate LA and RA dilatation. [facility] Jardiance last month. He denies chest pain, SOB, palpitations, lightheadedness/syncope, and bleeding on Eliquis. LE edema continues to resolve by morning time. his blood pressure readings was noted to be elevated. he brought in his reading that he is taken over the past month or so and notes that his BP readings are high which he can do correlates after being started on Jardiance. pulse check today shows sinus rhythm ECHO 11/04/23 10/26/23: he is here for 6-month follow-up He stopped his flecainide 04/2023 has been feeling well with no complaints of chest pain, shortness of breath, RAUSCH, palpitations, lightness 04/28/23 dr eckert HPI: Aline Tomlin is a 74 y.o. year old with past medical history [...] patient was converted to sinus rhythm Of no (more content not included)... [facility] 08-09-2024 History of Present illness Narrative Associated Problem(s): Benign essential hypertension (CMS/HCC) His BP is doing fine on current rx. Based on review of patient's medications and current medical status; continuation of medications most appropriate. Compliance with medications and/or management recommendations encouraged. Monitor Associated Problem(s): Stage 3b chronic kidney disease (HCC) (CMS/HCC) -We will continue to monitor your renal function for any significant decline in eGFR (which is a measure of how well your kidneys are working). We will continue to work to optimally control any underlying conditions that are associated with worsening effects on kidney function and I will adjust medications as needed due to any changes in your kidney function. Associated Problem(s): Persistent atrial fibrillation (HCC) (CMS/HCC) Rate is adequately controlled on current medications. Anticoagulation is being tolerated without any evidence of significant adverse effect. Will continue current regimen and monitor. Associated Problem(s): Diabetes mellitus with nephropathy (CMS/HCC) A1c has decreased a little (from 7.0% to 6.7%). He is tolerating the jardiance well and metformin has been [facility] by [facility]. Will continue to monitor glucose control. Chart reviewed to make sure patient is up to date on screenings for DM related comorbidities (ie annual dilated eye exam, annual ABDULLAHI and other labs and reminded to do daily foot exams). Specific goals for A1c and BP were reviewed and ways to achieve this goals discussed. Images from the original note were not included. Subjective : Chief Complaint: Aline Tomlin (: 1950) is an 73 y.o. male here for an annual Medicare Wellness visit and Routine 4 Mo Follow Up HPI : Aline is being seen today for an annual MW with the [employer] and a routine four month follow up. Llab results from 07/2023 are documented in EHR for reference. Care gaps indicate recommendations for a seasonal flu vaccine and a prevnar 20 vaccine. These recommendations will be reviewed with him today..... Pt reports that he would like the flu vaccine, but is going to decline getting the prevnar 20 today. -Administered fluad IM per protocol. He tolerated procedure without c/o voiced. Diabetes Management -DM was diagnosed several years ago -Associated complications: CKD 3, Hx of Diabetic Retinopathy -Current Medications: Metformin, Fosinopril, Simvastatin. Jardiance added ~04/2024 and metformin decreased to daily. -Currently reports doing FSBG checks once a day and readings rangin-140s -Previous A1c completed: in 03/2024 = 7.0% -Most recent A1c: in 06/2024 = 6.7% (remains stable) -Last ABDULLAHI: 07/2023 -Last lipids: 07/2023 -Last DM eye exam completed: 09/04/23 ( Pt reports he has an appt for his eye exam on 09/05/24) -Findings on eye exam: No evidence of DR -He sees Podiatry at the [facility]- last appt 03/15/2024 Current Outpatient Medications Medication Instructions amLODIPine (NORVASC) 10 mg, Oral, Daily cloNIDine (CATAPRES) 0.1 mg, Oral, 2 times daily Eliquis 5 mg, Oral, 2 times daily empagliflozin (Jardiance) 25 MG 0.5 tablets, Oral, Daily, Rx'd by [facility] fosinopril (Monopril) 40 MG tablet TAKE ONE TABLET BY MOUTH DAILY FOR 90 DAYS metFORMIN (GLUCOPHAGE) 500 mg, Oral, Daily, Dose decreased per [facility] metoprolol succinate XL (Toprol-XL) 50 MG 24 hr tablet TAKE ONE TABLET BY MOUTH DAILY FOR 90 DAYS omeprazole (PriLOSEC) [address] capsule TAKE ONE CAPSULE BY MOUTH ONCE DAILY 30 MINUTES BEFORE MEAL potassium chloride CR (Klor-Con M20) 20 MEQ ER tablet 20 mEq, Oral, 3 times daily simvastatin (Zocor) 40 MG tablet TAKE ONE TABLET BY MOUTH DAILY FOR 90 DAYS triamcinolone (Kenalog) 0.1 % cream Topical, 2 times daily, To affected areas Allergies Allergen Reactions Hydrochlorothiazide Other Reaction(s): low K+ and Mg++ Penicillin G Unknown Past Medical History: Diagnosis Date Bilateral hearing loss Cataracts, bilateral Chronic kidney disease, stage 3 (HCC) (CMS/HCC) Diabetes mellitus with nephropathy (CMS/HCC) Essential hypertension, benign ([facility]) GERD (gastroesophageal reflux disease) History of atrial fibrillation 2019 Hx cardioversions. He is currently on Eliquis History of third degree heart block Hx of diabetic retinopathy follows up routinely at [facility] Mixed hyperlipidemia ([facility]) KUSH on CPAP Proteinuria Urinary retention due to benign prostatic hyperplasia 2022 seeing Urology Patient's PSH, SOCHx and Family Hx have been reviewed and updated if needed. Review of Systems Constitutional: Negative for appetite change, chills, fatigue and fever. HENT: Negative for ear pain, hearing loss, nosebleeds, trouble swallowing and voice change. Gastrointestinal: Negative for abdominal pain, blood in stool, constipation, diarrhea, nausea and vomiting. Genitourinary: Positive for difficulty urinating and hematuria. Negative for dysuria. Hx BPH and hematuria. He follows with Urologist (Dr Horner). He had Rezum procedure ~09/2023 Musculoskeletal: Negative for arthralgias, back pain and gait problem. 08/2024- noting knees are getting more stiff. Especially after sitting in chair or car. Some locking, no falls. Walking and stretching seems to help. No significant pain at this time. Neurological: Negative for dizziness, tremors, seizures, speech difficulty, weakness, light-headedness, numbness and headaches. Psychiatric/Behavioral: Negative for confusion, hallucinations and sleep disturbance. Endocrine: Negative for polydipsia, polyphagia and polyuria. List of current healthcare providers: Patient Care Team: Patti Thomas DO as PCP - General (Internal Medicine) Patti Thomas DO as PCP - ACO Reach Tri Watt MD as Referring Physician (Dermatology) Zhang Kessler MD as Referring Physician (Ophthalmology) Danny Horner MD as Referring Physician (Urology) Ten Eckert MD as Referring Physician (Cardiac Electrophysiology) Medicare Annual Visit Over the past 2 weeks, how often have you been bothered by any of the following problems? Little interest or pleasure in doing things: (P) Not at all Feeling down, depressed, or hopeless: (P) Not at all Patient Health Questionnaire-2 Score: (P) 0 Lockhart Fall Risk History of Falling, Immediate or Within 3 Months: (P) No Secondary Diagnosis: (P) No Ambulatory Aid: (P) Walks without aid/bedrest/nurse assist Intravenous Therapy/Heparin Lock: (P) No Gait/Transferring: (P) Normal/bedrest/immobile Mental Status: (P) Oriented to own ability Lockhart Fall Risk Score: (P) 0 Health Risk Assessment Form Do you need help eating, bathing, using the toilet, dressing, or getting around your home?: (P) No Can you prepare your own meals?: (P) Yes Can you do your own housework without help?: (P) Yes Can you shop for groceries or clothes without help?: (P) Yes Do you exercise for about 20 minutes 3 or more days a week?: (P) Yes How confident are you that you can control and manage most of your health problems?: (P) Very confident Can you mange your money, credit cards and accounts, pay bills and taxes?: (P) Yes Vision Screening: Yes, patient sees regular automatic teller machine servicer/slurry blender Hearing Screening: Yes, uses hearing aids Cognitive Screening Self Assessment: No overt cognitive deficiency is apparent by direct observation Three Word Registration: Captalexa, Gopal, Picture Clock Drawing: Normal Clock - 2 Three Word Recall: All 3 words correct - 3 Total Score (0-5 Points): 5 Pain Assessment Pain Score: (P) 1 Objective : Vital signs: BP 138/76 Pulse 67 Wt 245 lb 6.4 oz SpO2 99% BMI 29.10 kg/m Recent Results (from the past 2016 hour(s)) Hemoglobin A1c Collection Time: 06/15/24 12:00 AM Result Value Ref Range HEMOGLOBIN A1C 6.7 Physical Exam Constitutional: General: He is not in acute distress. Appearance: Normal appearance. HENT: Head: Normocephalic. Ears: Comments: He has bilateral hearing aids Eyes: General: No scleral icterus. Extraocular Movements: Extraocular movements intact. Conjunctiva/sclera: Conjunctivae normal. Neck: Vascular: No carotid bruit. Cardiovascular: Rate and Rhythm: Normal rate and regular rhythm. Heart sounds: No murmur heard. Pulmonary: Effort: Pulmonary effort is normal. No respiratory distress. Breath sounds: Normal breath sounds. No wheezing or rhonchi. Musculoskeletal: General: No swelling. Normal range of motion. Cervical back: Normal range of motion. Skin: General: Skin is warm and dry. Coloration: Skin is not jaundiced. Findings: No rash. Neurological: General: No focal deficit present. Mental Status: He is alert and oriented to person, place, and time. Motor: No weakness. Gait: Gait normal. Psychiatric: Mood and Affect: Mood normal. Thought Content: Thought content normal. Judgment: Judgment normal. Assessment/Plan : Problem List Items Addressed This Visit Benign essential hypertension ([facility]/HCC) Overview Prescribed amlodipine, fosinopril and metoprolol Current Assessment & Plan His BP is doing fine on current rx. Based on review of patient's medications and current medical status; continuation of medications most appropriate. Compliance with medications and/or management recommendations encouraged. Monitor KUSH on CPAP Overview -Since untreated sleep apnea is linked to high blood pressure, diabetes, liver problems and possibly even dementia it is important to be compliant with recommended treatment. Adults with untreated moderate to severe sleep apnea are more than twice as likely to as those who do not have it. Lifestyle changes like losing weight, avoiding alcohol before bedtime and quitting smoking can be helpful for retirement management. But the most effective treatment is continuous positive airway pressure. So it is important to be compliant with prescribed treatment Diabetes mellitus with nephropathy ([facility]) Overview Prescribed Metformin 03/2024- will add jardiance ([facility]) Current Assessment & Plan A1c has decreased a little (from 7.0% to 6.7%). He is tolerating the jardiance well and metformin has been decreased [facility]ail[facility] by [facility]. Will continue to monitor glucose control. Chart reviewed to make sure patient is up to date on screenings for DM related comorbidities (ie annual dilated eye exam, annual ABDULLAHI and other labs and reminded to do daily foot exams). Specific goals for A1c and BP were reviewed and ways to achieve this goals discussed. Mixed hyperlipidemia ([facility]) Overview Prescribed simvastatin 40 mg daily 07/2023- TC-138; TG-38, HDL-44, LDL- 86 --- 08/2024: could be an interaction between the amlodipine and simvastatin, but he has been on both these at current doses and there has not been any issue. Will continue to monitor for now. He reports he will be having labs soon at [facility], so if LDL happens to be <50, would consider decrease in dose or simvastatin, but if LDL not at goal will change to a different statin rather than increase dose Persistent atrial fibrillation (HCC) ([facility]) Overview Prescribed Eliquis and metoprolol Current Assessment & Plan Rate is adequately controlled on current medications. Anticoagulation is being tolerated without any evidence of significant adverse effect. Will continue current regimen and monitor. Stage 3b chronic kidney disease (HCC) ([facility]) Overview Adding Jardiance 03/2024 Current Assessment & Plan -We will continue to monitor your renal function for any significant decline in eGFR (which is a measure of how well your kidneys are working). We will continue to work to optimally control any underlying conditions that are associated with worsening effects on kidney function and I will adjust medications as needed due to any changes in your kidney function. CPAP (continuous positive airway pressure) dependence Overview He reports he is using nightly and continues to have good response Other Visit Diagnoses Medicare annual wellness visit, subsequent - Primary Patient here for annual Medicare Wellness visit with Katrina Gardner NP. Demographics were updated. Self-assessment was completed. Past medical, family, and social history were updated. The medication list, including supplements being taken, was updated. A list of other current medical providers was established/updated. Time was spent discussing health maintenance issues, ordering proper testing, and a schedule was provided regarding recommended screening. We discussed safety issues and fall risk. Depression screening was completed and addressed. Fall screening was completed and addressed. Cognitive function was assessed by direct observation and assessment of ability to perform ADL's and IADL's was done. The current BMI was provided and will continue to be monitored at routine office visits as well. Major risk factors for chronic disease including family history were discussed and a list was provided with the care plan. Diabetic glomerulopathy ([facility]) Relevant Medications metFORMIN (Glucophage) 500 MG tablet Need for immunization against influenza Relevant Orders Flu vaccine, trivalent, adjuvanted, preservative free (Completed) Other thrombophilia ([facility]) ACP (advance care planning) Discussed LW/POA with patient. Patient does have this in place. The following health maintenance schedule was reviewed with the patient and provided in printed form in the after visit summary: Health Maintenance Topic Date Due Pneumococcal Vaccine: 65+ Years (1 of 2 - PCV) 08/09/2025 (Originally 1956) Diabetes: Retinopathy Screening 09/01/2024 Diabetes: Hemoglobin A1C 09/15/2024 Diabetes: Urine Protein Screening 02/14/2025 Colorectal Cancer Screening 11/06/2032 Influenza Vaccine Completed Immunization History Administered Date(s) Administered Influenza, High Dose Seasonal, Preservative Free 08/31/2017, 07/25/2022 Influenza, Seasonal, Quadrivalent, Adjuvanted 07/23/2023 Influenza, injectable, quadrivalent, preservative free 09/01/2016 Influenza, seasonal, injectable, preservative free 10/27/2014 Influenza, seasonal, intradermal, preservative free 08/30/2015 Influenza, trivalent, adjuvanted 08/26/2018, 08/29/2019, 08/03/2020, 08/09/2024 Pfizer Purple Cap SARS-CoV-2 Vaccination 01/07/2021, 01/29/2021 Tdap 10/06/2017 Orders Placed This Encounter Procedures Flu vaccine, trivalent, adjuvanted, preservative free Hemoglobin A1c This order was created through External Result Entry Order Specific Question: Print requisition? Answer: No Microalbumin / creatinine urine ratio This order was created through External Result Entry Order Specific Question: Print requisition? Answer: No -This patient was seen and examined by one of our Advanced Care Practitioner ([employer]) for the Medicare Wellness portion of this visit. History was confirmed/verified and barth elements of the physical exam were also completed by myself. The assessment and plan has been reviewed and amended as needed. I am in agreement with the information as documented above. -Patient's chronic conditions have been reviewed in preparation for this appointment. Protocols reviewed and updated. A collaborative plan of care has been created for pt regarding specific health concerns. Any barriers to care have been identified and addressed. Any part of this document that has been added/copied from other documents has been reviewed for accuracy and updated as appropriate at the time of the patient encounter. -Follow up in about 4 months (around 12/10/2024) for routine follow up visit. Priscilla Gardner NP Board Certified [employer] documented in this encounter [facility] 08-09-2024 Instructions Patti Thomas DO - 08/09/2024 1:30 PM EDT There could be an interaction between the amlodipine and simvastatin, but he has been on both these at current doses and there has not been any issue. Will continue to monitor for now. He reports he will be having labs soon at [facility], so if LDL happens to be <50, would consider decrease in dose or simvastatin, but if LDL not at goal will change to a different statin rather than increase dose documented in this encounter [facility] 05-24-2024 Note [place] Cardiology Consul t Note Reason for visit: s/p PVI 05/24/24 Patient here for 6 mo follow up persistent afib, hypertension, and hyperlipidemia. Had echo in Oct 2023 after last apt Which revealed normal EF with moderate LA and RA dilatation. The [facility] started him on low dose Jardiance last month. He denies chest pain, SOB, palpitations, lightheadedness/syncope, and bleeding on Eliquis. LE edema continues to resolve by morning time. his blood pressure readings was noted to be elevated. he brought in his reading that he is taken over the past month or so and notes that his BP readings are high which he can do correlates after being started on Jardiance. pulse check today shows sinus rhythm ECHO 11/04/23 10/26/23: he is here for 6-month follow-up [...] visually. Left ventricular wall thickness is increased. N (more content not included)... [facility] 03-02-2024 Hospital Discharge instructions Patient Education 03/02/2024 09:57:55 Benign Prostatic Hyperplasia Benign Prostatic Hyperplasia Benign [...] urethra. Follow these instructions at home: Take xbmm-tyw-ffaahtg and prescription medicines only as told by [...] provider. Document Revised: 05/14/2022 Document Reviewed: 05/14/2022 [employer] Patient Education 2022 [employer]. Follow Up Care 10/28/2023 08:26:21 With:SIRI COLORADO, Danny Simon, URL Address: [facility] [employer] [address] [place] [phone]- When: Unknown [facility] 10-28-2023 Hospital Discharge instructions Patient Education 10/28/2023 [...] urethra. Follow these instructions at home: Take jevg-iyb-oqzmaqa and prescription medicines only as told by [...] provider. Document Revised: 05/14/2022 Document Reviewed: 05/14/2022 [employer] Patient Education 2022 [employer]. Follow Up Care 10/14/2023 11:06:19 With:SIRI COLORADO, Danny Simon, URL Address: [address] [place], [place] [id number]- When: Unknown [facility] 10-12-2023 Hospital Discharge instructions Patient Education 10/12/2023 14:48:48 EU - Rezum Discharge Instructions (Custom) Re[facility] Post-Procedure Instructions General Recommendations 1. Drink [...] cotton underwear to absorb moisture and keep raw stock drier tender. 6. Keep the drainage bag below the [...] Care 09/08/2023 14:49:27 With:Danny HORNER Address: [address] [phone] Business (1) When:1 week Comments:Call for followup appointment next week. Push fluids to keep the urine clear. The plan will be for you to stay off of your Eliquis until seen in the office but if you are having no bleeding even by Thursday of this week, please give the office a call. We may restart your Eliquis sooner. [facility] 09-08-2023 Hospital Discharge instructions Patient Education 09/08/2023 [...] urethra. Follow these instructions at home: Take imgw-wov-cgjmbdc and prescription medicines only as told by [...] provider. Document Revised: 05/14/2022 Document Reviewed: 05/14/2022 [employer] Patient Education 2022 [employer]. Follow Up Care 08/12/2023 12:59:54 With:SIRI COLORADO, Danny Simon, URL Address: [address] [place], [place] [id number]- When: Unknown Comments:Taqueria Carrion [facility] 02-05-2022 Hospital Discharge instructions Patient [...] urethra. Follow these instructions at home: Take nmsd-mgc-uvxxipp and prescription medicines only as told by [...] 10/26/2006 Document Revised: 09/20/2019 Document Reviewed: 11/30/2017 [employer] Patient Education 2020 [employer]. 02/05/2022 13:20:05 Calorie Counting for Weight Loss [...] 10/26/2006 Document Revised: 07/15/2019 Document Reviewed: 09/25/2017 [employer] Patient Education [employer] Follow Up Care 01/23/2021 13:38:37 With:SIRI COLORADO, Danny Simon, URL Address: When:Within 1 Year(s) Comments:w/PSA & KUB [facility] 09-11-2021 Evaluation note Encounter Date Diagnosis Assessment [...] control to surround the progression of CKD. v2tel Other Evaluation + Plan note Future Appointments Appointment Date:02/11/2023 11:15:00 AM Scheduled Provider:Danny HORNER MD Location:[facility] Appointment Type:URO Office Visit Diagnostic Tests Pending * PSA Free & Total 02/05/22 [facility] Evaluation + Plan note Future Appointments Appointment Date:10/12/2023 02:00:00 PM Scheduled Provider: Location:[facility] Appointment Type:Urology FT Appointment Date:01/12/2024 09:45:00 AM Scheduled Provider:Danny HORNER MD Location:[facility] Appointment Type:URO Office Visit [facility] Evaluation + Plan note Future Appointments Appointment Date:10/14/2023 10:30:00 AM Scheduled Provider: Location:[facility] Appointment Type:URO Nurse Visit Appointment Date:01/12/2024 09:45:00 AM Scheduled Provider:Danny HORNER MD Location:[facility]ments Appointment Date:10/28/2023 08:00:00 AM Scheduled Provider:Danny HORNER MD Location:[facility] Appointment Type:URO Office Visit Appointment Date:01/12/2024 09:45:00 AM Scheduled Provider:Danny HORNER MD [facility] Appointment Type:URO Office Visit [facility] Evaluation + Plan note Future Appointments Appointment Date:03/02/2024 09:15:00 AM Scheduled Provider:Danny HORNER MD Location:[facility] Appointment Type:URO Office Visit [facility] Evaluation + Plan note Future Appointments Appointment Date:03/08/2025 09:30:00 AM Scheduled Provider:Danny HORNER MD Location:[facility] Appointment Type:URO Office Visit Diagnostic Tests Pending * PSA Free & Total 07/10/24 [facility] evaluation + Plan note Future Appointments Appointment Date:03/08/2025 09:30:00 AM Scheduled Provider:Danny HORNER MD Location:[facility] Appointment Type:URO Office Visit [facility] evaluation note* Diagnosis Medicare annual wellness visit, subsequent- Primary ACP (advance care planning) Other specified counseling Need for immunization against influenza Need for prophylactic vaccination and inoculation against influenza Benign essential hypertension (CMS/HCC) Essential hypertension, benign Mixed hyperlipidemia (CMS/HCC) Mixed hyperlipidemia Stage 3b chronic kidney disease (HCC) (CMS/HCC) Persistent atrial fibrillation (HCC) (CMS/HCC) Atrial fibrillation Diabetes mellitus with nephropathy ([facility]/HCC) KUSH on CPAP Hyperplasia of prostate with lower urinary tract symptoms (LUTS) Unspecified hyperplasia of prostate with urinary obstruction and other lower urinary tract symptoms (LUTS) Diabetes mellitus with nephropathy (CMS/HCC)- Primary Benign essential hypertension (CMS/HCC) Essential hypertension, benign Stage 3b chronic kidney disease (HCC) (CMS/HCC) Persistent atrial fibrillation (HCC) (CMS/HCC) Atrial fibrillation Mixed hyperlipidemia (CMS/HCC) Mixed hyperlipidemia KUSH on CPAP CPAP (continuous positive airway pressure) dependence Dependence on other enabling machine Gastroesophageal reflux disease with esophagitis without hemorrhage Cortical age-related cataract of both eyes Mixed hyperlipidemia (CMS/HCC)- Primary Mixed hyperlipidemia Gastroesophageal reflux disease with esophagitis without hemorrhage Diabetes mellitus with nephropathy (CMS/HCC) Dermatitis Contact dermatitis and other eczema, due to unspecified cause Persistent atrial fibrillation (HCC) (CMS/HCC) Atrial fibrillation Stage 3b chronic kidney disease (HCC) (CMS/HCC) Benign essential hypertension (CMS/HCC) Essential hypertension, benign CPAP (continuous positive airway pressure) dependence Dependence on other enabling machine KUSH on CPAP Secondary hyperparathyroidism of renal origin (CMS/HCC) Secondary hyperparathyroidism (of renal origin) Atherosclerosis of aorta (CMS/HCC) Atherosclerosis of aorta Medicare annual wellness visit, subsequent- Primary Diabetic glomerulopathy (CMS/HCC) Type II or unspecified type diabetes mellitus with renal manifestations, not stated as uncontrolled Mixed hyperlipidemia (CMS/HCC) Mixed hyperlipidemia Diabetes mellitus with nephropathy (CMS/HCC) Persistent atrial fibrillation (HCC) (CMS/HCC) Atrial fibrillation Stage 3b chronic kidney disease (HCC) (CMS/HCC) Benign essential hypertension (CMS/HCC) Essential hypertension, benign KUSH on CPAP Need for immunization against influenza Need for prophylactic vaccination and inoculation against influenza CPAP (continuous positive airway pressure) dependence Dependence on other enabling machine Other thrombophilia (CMS/HCC) ACP (advance care planning) Other specified counseling [facility] Diagnosis Medicare annual wellness visit, subsequent- Primary ACP (advance care planning) Other specified counseling Need for immunization against influenza Need for prophylactic vaccination and inoculation against influenza Benign essential hypertension (CMS/HCC) Essential hypertension, benign Mixed hyperlipidemia (CMS/HCC) Mixed hyperlipidemia Stage 3b chronic kidney disease (HCC) (CMS/HCC) Persistent atrial fibrillation (HCC) (CMS/HCC) Atrial fibrillation Diabetes mellitus with nephropathy (CMS/HCC) KUSH on CPAP Hyperplasia of prostate with lower urinary tract symptoms (LUTS) Unspecified hyperplasia of prostate with urinary obstruction and other lower urinary tract symptoms (LUTS) Diabetes mellitus with nephropathy (CMS/HCC)- Primary Benign essential hypertension (CMS/HCC) Essential hypertension, benign Stage 3b chronic kidney disease (HCC) (CMS/HCC) Persistent atrial fibrillation (HCC) (CMS/HCC) Atrial fibrillation Mixed hyperlipidemia (CMS/HCC) Mixed hyperlipidemia KUSH on CPAP CPAP (continuous positive airway pressure) dependence Dependence on other enabling machine Gastroesophageal reflux disease with esophagitis without hemorrhage Cortical age-related cataract of both eyes Mixed hyperlipidemia (CMS/HCC)- Primary Mixed hyperlipidemia Gastroesophageal reflux disease with esophagitis without hemorrhage Diabetes mellitus with nephropathy (CMS/HCC) Dermatitis Contact dermatitis and other eczema, due to unspecified cause Persistent atrial fibrillation (HCC) (CMS/HCC) Atrial fibrillation Stage 3b chronic kidney disease (HCC) (CMS/HCC) Benign essential hypertension (CMS/HCC) Essential hypertension, benign CPAP (continuous positive airway pressure) dependence Dependence on other enabling machine KUSH on CPAP Secondary hyperparathyroidism of renal origin (CMS/HCC) Secondary hyperparathyroidism (of renal origin) Atherosclerosis of aorta (CMS/HCC) Atherosclerosis of aorta Medicare annual wellness visit, subsequent- Primary Diabetic glomerulopathy (CMS/HCC) Type II or unspecified type diabetes mellitus with renal manifestations, not stated as uncontrolled Mixed hyperlipidemia (CMS/HCC) Mixed hyperlipidemia Diabetes mellitus with nephropathy (CMS/HCC) Persistent atrial fibrillation (HCC) (CMS/HCC) Atrial fibrillation Stage 3b chronic kidney disease (HCC) (CMS/HCC) Benign essential hypertension (CMS/HCC) Essential hypertension, benign KUSH on CPAP Need for immunization against influenza Need for prophylactic vaccination and inoculation against influenza CPAP (continuous positive airway pressure) dependence Dependence on other enabling machine Other thrombophilia (CMS/HCC) ACP (advance care planning) Other specified counseling Mixed hyperlipidemia (CMS/HCC)- Primary Mixed hyperlipidemia Gastroesophageal reflux disease with esophagitis without hemorrhage Diabetes mellitus with nephropathy (CMS/HCC) Persistent atrial fibrillation (HCC) (CMS/HCC) Atrial fibrillation Stage 3b chronic kidney disease (HCC) ([facility]/HCC) Benign essential hypertension ([facility]/HCC) Essential hypertension, benign KUSH on CPAP CPAP (continuous positive airway pressure) dependence Dependence on other enabling machine Sensorineural hearing loss, bilateral documented [facility] this encounter [facility] N[facility] - Reported* Type Description Date [...] Surgical History CYSTOSCOPY WITH DR HORNER 07/02/20 20 Surgical History CARDIOVERSION 07/24/2020 Surgical History CARDIOVERSION UNDER GENERAL 07/10 Surgical History SKIN LESION REMOVED 09/27/2020 Surgical History AFIB ABLATION WITH EPS 1 Surgical History CARDIO VERSION 01/09/2021 Hospitalization History URETHRAL STENT PLACEMENT 05/08/2019 Hospitalization History A-FIB 0 Hospitalization History A-FIB WITH EPS 1 v2tel Other Hospital course Narrative No data available for this section [facility] Hospital Discharge instructions No data available for this section [facility] Progress note No data available for this section [facility] Summary Purpose Family History No Family [...] section and content) DATE CREATED AUTHOR 09/16/2019 [facility] DATE CREATED AUTHOR AUTHOR'S ORGANIZ ATION 11/17/2021 [facility] DATE CREATED AUTHOR AUTHOR'S ORGANIZ ATION 02/05/2023 [facility] DATE CREATED AUTHOR AUTHOR'S ORGANIZ ATION 11/25/2024 [facility] DATE CREATED AUTHOR AUTHOR'S ORGANIZ ATION 12/21/2024 [facility] EPIC DATE CREATED AUTHOR AUTHOR'S ORGANIZ ATION 03/06/2025 [facility] DATE CREATED AUTHOR AUTHOR'S ORGANIZ ATION 03/09/20[facility] REASON FOR VISIT (unrecogniz ed section and content) Reason Comments Medicare Annual Wellness Visit Subsequen t Routine 6 Mo Follow Up Reason Comments Routine 4 Mo Follow Up Patient Care team informatio n (unrecognized section and content) 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 Specialty Start Date End Date Patti Thomas DO [address] [place] [address] PCP - ACO Reach 04/02/23 Patti Thomas DO [address] [place] [address] PCP - General Internal Medicine 07/23/23 Tri Watt MD [address] [address] Referring Physician Dermatology 07/22/23 Zhang Kessler MD [address] [place] [address] Referring Physician Ophthalmology 07/22/23 Danny Horner MD [address] [facility] [place] [address] Referring Physician Urology 07/22/23 Ten Eckert MD [address] [facility] [address] [place] [address] Referring Physician Cardiac Electrophysiology 07/22/23 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 Specialty Start Date End Date Patti Thomas DO [address] [place] [address] PCP - ACO Reach 04/02/23 Patti Thomas DO [address] [place] [address] PCP - General Internal Medicine 07/23/23 Tri Watt MD [address] [address] Referring Physician Dermatology 07/22/23 Zhang Kessler MD [address] [place] [address] Referring Physician Ophthalmology 07/22/23 Danny Horner MD [address] [place] [address] Referring Physician Urology 07/22/23 Ten Eckert MD [address] [facility] [address] [place] [phone] Referring Physician Cardiac Electrophysiology 07/22/23 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 [address] [place] [address] Referring Physician Dermatology 07/22/23 Zhang Kessler MD [address] [place] [address] Referring Physician Ophthalmology 07/22/23 Danny Horner MD [address] [facility] [place] [address] Referring Physician Urology 07/22/23 Ten Eckert MD [address] [facility] [address] [place] [address] Referring Physician Cardiac Electrophysiology 07/22/23 FOR RECORDS PERTAINING TO PATIENTS WHO ARE [...] BE BASED ON THE PRIMARY CLINICAL RECORDS. [employer] provides no warranty or guarantee of the accuracy or completeness of information in this document.
--- NOTE | 2025-03-18 02:04 | ED.GENADUL1 ---
HPI HPI - General Adult General Chief complaint: Weakness Stated complaint: hot/cold sweats Time Seen by Provider: 03/18/25 01:46 Source: patient Source information: Mode of arrival: walk-in Limitations: no limitations History of Present Illness HPI narrative: got up to the bathroom several times tonight and describes gen. body shaking afterward. No dysuria or dyspnea. No chest pain Related Data Home Medications ?Medication ?Instructions ?Recorded ?Confirmed amlodipine 10 mg tablet mg 03/18/25 clonidine HCl 0.2 mg tablet mg 03/18/25 fosinopril 40 mg tablet mg 03/18/25 metformin 500 mg tablet mg 03/18/25 metoprolol succinate 50 mg mg PO 03/18/25 tablet,extended release 24 hr omeprazole 20 mg capsule,delayed mg 03/18/25 release potassium chloride 20 mEq meq PO 03/18/25 tablet,extended release(part/cryst) simvastatin 40 mg tablet mg 03/18/25 triamcinolone acetonide 0.1 % applic topical 03/18/25 topical cream Allergies Allergy/AdvReac Type Severity Reaction Status Date / Time Penicillins Allergy Unknown Unknown Verified 03/18/25 01:23 hydrochlorothiazide Allergy shake Verified 03/18/25 01:23 adhesive tape AdvReac Rash Verified 03/18/25 01:23 Review of Systems ROS Status of ROS 10 or more systems reviewed and unremarkable except as noted in history and below [facility] Medical History (Updated 03/18/25 @ 06:34 by Norbert Wild MD) A-fib ?I48.91 - Unspecified atrial fibrillation (ICD-10) Kidney stones ?N20.0 - Calculus of kidney (ICD-10) Skin cancer ?C44.90 - Unspecified malignant neoplasm of skin, unspecified (ICD-10) GERD (gastroesophageal reflux disease) ?K21.9 - Gastro-esophageal reflux disease without esophagitis (ICD-10) Diabetes ?E11.9 - Type 2 diabetes mellitus without complications (ICD-10) Hypertension ?I10 - Essential (primary) hypertension (ICD-10) Surgical History (Updated 03/18/25 @ 01:25 by Patrizia Molina) History of cardiac ablation for atrial fibrillation ?Z98.890 - Other specified postprocedural states (ICD-10) ?I48.91 - Unspecified atrial fibrillation (ICD-10) Hx of tonsillectomy ?Z90.89 - Acquired absence of other organs (ICD-10) Social History Little interest or pleasure in doing things: not at all Feeling down, depressed, or hopeless: not at all Exam Constitutional Vital Signs, click to edit/add: Last Vital Signs Temp 99.1 F 03/18/25 01:14 Pulse 92 H 03/18/25 07:20 Resp 13 03/18/25 07:20 BP 135/69 03/18/25 07:30 Pulse Ox 92 L 03/18/25 07:20 O2 Del Method Room Air 03/18/25 01:14 Common normals: no apparent distress, average body habitus, oriented x3, no limitations, healthy appearing, alert and well nourished HENMS Common normals: normocephalic and head/scalp atraumatic Eye Common normals: PERRL and EOMs intact bilaterally Respiratory Common normals: normal respiratory effort, no retractions, no use of accessory muscles and clear to auscultation bilaterally Cardio Rate: tachycardic Rhythm: abnormal rhythm GI Common normals: Normal to inspection, nondistended, normoactive bowel sounds present and soft to palpation Extremity Common normals: normal to inspection Neuro Common normals: oriented x3, CN's II-XII intact bilaterally and moves all extremities Psych Appearance: grossly normal Course Vital Signs Vital signs: Vital Signs Temperature 99.1 F 03/18/25 01:14 Pulse Rate 96 H 03/18/25 01:14 Respiratory Rate 20 03/18/25 01:14 Blood Pressure 182/105 H 03/18/25 01:14 Pulse Oximetry 95 03/18/25 01:14 Oxygen Delivery Method Room Air 03/18/25 01:14 Temperature 99.1 F 03/18/25 01:14 Pulse Rate 92 H 03/18/25 07:20 Respiratory Rate 13 03/18/25 07:20 Blood Pressure 135/69 03/18/25 07:30 Pulse Oximetry 92 L 03/18/25 07:20 Oxygen Delivery Method Room Air 03/18/25 01:14 Medical Decision Making [facility] Narrative Medical decision making narrative: patient presents with complaint of shaking chills. Presents with low grade fever. No dyspnea. Known diabetic and history of A. fib. UA neg for infection. RBS 169. cxray with infiltrate LLL. Patient medicated with Rocephin and zithromax and discharged home Lab Data Labs: Lab Results 03/18/25 03/18/25 Range/Units 01:30 02:31 WBC 13.7 H (4.0-11.0) 10^3/uL RBC 5.09 (4.70-6.10) 10^6/uL Hgb 16.1 (14.0-18.0) g/dL Hct 47.4 (42.0-54.0) % MCV 93.1 (80.0-94.0) fL MCH 31.6 (25.9-34.0) pg MCHC 34.0 (29.9-35.2) g/dL RDW 12.6 (11.0-15.0) % Plt Count 184 (150-450) 10^3/uL MPV 10.7 (9.5-13.5) fL Neut % (Auto) 81.1 H (43.0-75.0) % Lymph % (Auto) 11.8 L (20.5-60.0) % Spencer % (Auto) 6.4 (1.7-12.0) % Eos % (Auto) 0.3 L (0.9-7.0) % Baso % (Auto) 0.2 (0.2-2.0) % Neut # (Auto) 11.1 H (1.4-6.5) 10^3/uL Lymph # (Auto) 1.6 (1.2-3.8) 10^3/uL Spencer # (Auto) 0.9 H (0.3-0.8) 10^3/uL Eos # (Auto) 0.0 (0.0-0.7) 10^3/uL Baso # (Auto) 0.0 (0.0-0.1) 10^3/uL Abs Immat Gran (auto) 0.03 (0.00-0.03) 10^3/uL Imm/Tot Granulo (auto) 0.2 (0.0-0.5) % Sodium 141 (136-145) mmol/L Potassium 3.4 L (3.5-5.1) mmol/L Chloride 104 (98-107) mmol/L Carbon Dioxide 31.5 (21.0-32.0) mmol/L Anion Gap 8.9 BUN 26.0 H (7.0-18.0) mg/dL Creatinine 1.31 H (0.70-1.30) mg/dL Est GFR ( Amer) >60 (>=60 mL/min/1.73m^2) Est GFR (Non-Af Amer) 53 L (>=60 mL/min/1.73m^2) BUN/Creatinine Ratio 19.8 Glucose 169 H (74-106) mg/dL Calcium 9.4 (8.5-10.1) mg/dL Urine Color Lt. yellow (YELLOW) Urine Clarity Clear (CLEAR) Urine pH 6.0 (5.0-9.0) Ur Specific [place] 1.010 (1.005-1.025) Urine Protein Trace (NEG/TRACE) mg/dL Urine Glucose (UA) >=1000 A (NEGATIVE) mg/dL Urine Ketones Negative (NEGATIVE) mg/dL Urine Occult Blood Small A (NEGATIVE) Urine Nitrite Negative (NEGATIVE) Urine Bilirubin Negative (NEGATIVE) Urine Urobilinogen 0.2 (0.2-1.0) EU/dL Ur Leukocyte Esterase Negative (NEGATIVE) Urine RBC 0-2 (0-2) #/HPF Urine WBC 0-2 A (NONE SEEN) #/HPF Ur Squamous Epith Cells Rare (NONE/RARE) #/LPF Urine Crystals None seen (None Seen) #/HPF Urine Bacteria None seen (NONE SEEN) #/HPF Urine Casts None seen (NONE SEEN) #/LPF Urine Mucus None seen (NONE SEEN) Ur Culture Indicated? No Discharge Plan Discharge Chief Complaint: Weakness Clinical Impression: LLL pneumonia Patient Disposition: Home, Self-Care Prescriptions / Home Meds: No Action metformin 500 mg tablet metoprolol succinate 50 mg tablet extended release 24 hr PO triamcinolone acetonide 0.1 % cream TOPICAL simvastatin 40 mg tablet clonidine HCl 0.2 mg tablet potassium chloride 20 mEq tablet,ER particles/crystals PO amlodipine 10 mg tablet fosinopril 40 mg tablet omeprazole 20 mg capsule,delayed release(DR/EC) Print Language: Albanian Instructions: Pneumonia (ED) Additional Instructions: follow up with your doctor Thursday for recheck. Drink plenty of fluids. Return if any worsening Referrals: PAT DASILVA [Primary Care Provider, Internal Medicine] - 1 week Discharge Date/Time: 03/18/25 08:38
[2025-03-18 05:41] LABS: Anion Gap 8.9
[2025-03-18 05:41] LABS: Bilirubin Urine NEGATIVE (NEGATIVE); Blood Urine SMALL (NEGATIVE); Clarity Urine CLEAR (CLEAR); Color Urine LT. YELLOW (YELLOW); Glucose Urine UA >=1000 mg/dL (NEGATIVE); Ketones Urine NEGATIVE (NEGATIVE); Leukocyte Esterase Urine NEGATIVE (NEGATIVE); Nitrite Urine NEGATIVE (NEGATIVE); Protein Urine TRACE mg/dL (NEG/TRACE); Urobilinogen Urine 0.2 EU/dL (0.2-1.0)
[2025-03-18 05:42] LABS: BUN Creatinine Ratio 19.8; Calcium 9.4 mg/dL (8.5-10.1); Carbon Dioxide 31.5 mmol/L (21.0-32.0); Chloride 104 mmol/L (98-107); Estimated GFR (African America >60 (>=60 mL/min/1.73m^2); Estimated GFR (Non-African Ame 53 (>=60 mL/min/1.73m^2); Glucose 169 mg/dL (74-106); Potassium 3.4 mmol/L (3.5-5.1); Sodium 141 mmol/L (136-145)
[2025-03-18 05:47] LABS: Basophils Percent Auto 0.2 % (0.2-2.0); Eosinophils Percent Auto 0.3 % (0.9-7.0); Hematocrit 47.4 % (42.0-54.0); Hemoglobin 16.1 g/dL (14.0-18.0); Immature Granulocytes Abs Auto 0.03 10^3/uL (0.00-0.03); Immature Granulocytes Pct Auto 0.2 % (0.0-0.5); Lymphocytes Absolute Auto 1.6 10^3/uL (1.2-3.8); Lymphocytes Percent Auto 11.8 % (20.5-60.0); Mean Corpuscular Hemoglobin 31.6 pg (25.9-34.0); Mean Corpuscular Volume 93.1 fL (80.0-94.0); Mean Platelet Volume 10.7 fL (9.5-13.5); Monocytes Absolute Auto 0.9 10^3/uL (0.3-0.8); Monocytes Percent Auto 6.4 % (1.7-12.0); Neutrophils Absolute Auto 11.1 10^3/uL (1.4-6.5); Neutrophils Percent Auto 81.1 % (43.0-75.0); Platelet Count 184 10^3/uL (150-450); Red Blood Count 5.09 10^6/uL (4.70-6.10); Red Cell Distribution Width 12.6 % (11.0-15.0); White Blood Count 13.7 10^3/uL (4.0-11.0)
--- NOTE | 2025-03-18 05:55 | ECG_ITS ---
[facility] Test Date: 2025-03-18 Pat Name: ALINE OROSCO Department: Room: - Gender: Male [employer]: : 1950 Requested By: [id number] Order Number: [id number] Reading MD: MELVIN MAXWELL M.D. Measurements Intervals [place] Rate: 91 P: -[id number] AR: -51860 QRS: 71 QRSD: 78 T: -11 QT: 352 QTc: 401 Interpretive Statements 1210 Atrial fibrillation 7500 Abnormal QRS-T angle 9140 abnormal rhythm ECG Compared to ECG 07/23/2020 06:00:31 No significant changes Electronically Signed On 03-19-2025 12:34:59 EDT by MELVIN MAXWELL M.D.
[2025-03-18 06:07] LABS: Bacteria Urine NONE SEEN #/HPF (NONE SEEN); Cast Seen? NONE SEEN #/LPF (NONE SEEN); Crystals Seen? None Seen #/HPF (None Seen); Mucus Urine NONE SEEN (NONE SEEN); RBC Urine 0-2 #/HPF (0-2); Squamous Epithelial Cell Urine RARE #/LPF (NONE/RARE); Urine Culture Indicated NO; WBC Urine 0-2 #/HPF (NONE SEEN)
[2025-03-18] MEDS: CEFTRIAXONE 1,000 MG in 0.9 % SODIUM CHLORIDE 50 ML 100 MG IV (06:53)
[2025-03-18] MEDS: AZITHROMYCIN 500 MG in 0.9 % SODIUM CHLORIDE 250 ML 250 MG IV (07:33)
--- NOTE | 2025-03-18 10:29 | PC.NURSE ---
Patients called asking if it is okay for patient to use his CPAP with his pneumonia. is concerned about the extra moisture from the CPAP making the pneumonia worse. RN spoke to Dr. Burger about the wifes concern and per dr. hatfield pt should have no worsening pneumonia with using his CPAP.
== END 2025-03-18 08:38 | disposition home or self-care (01) ==
PROVIDERS: Emergency Provider Internal Medicine; PCP Internal Medicine
DX: J18.9 Pneumonia, unspecified organism (principal); R50.9 Fever, unspecified; E11.9 Type 2 diabetes mellitus without complications; I48.91 Unspecified atrial fibrillation; Z79.84 Long term (current) use of oral hypoglycemic drugs
CPT/HCPCS: 36415; 71046; 80048; 81001; 85025; 93005; 96365; 96367; 99285; J0456; J0696

== ENCOUNTER 2025-04-07 09:13 | Outpatient (OUT) | payer MEDICARE, OTHER, SELFPAY ==
[2025-04-07 09:52] LABS: Magnesium 2.1 mg/dL (1.8-2.4); Potassium 3.6 mmol/L (3.5-5.1)
== END 2025-04-07 09:14 | disposition home or self-care (01) ==
LOC: LAB 09:17
PROVIDERS: PCP Internal Medicine; Visit Provider Internal Medicine Cardiovascular Disease
DX: I48.19 Other persistent atrial fibrillation (principal)
CPT/HCPCS: 36415; 83735; 84132

== ENCOUNTER 2025-04-18 13:32 | Emergency (ER) | payer MEDICARE, OTHER, SELFPAY ==
[2025-04-18 13:36] VITALS: BP 176/90; PULSE 51; TEMP 36.4; O2SAT 95; BMI 29.2
[2025-04-18] MEDS: MAGNESIUM CITRATE 296 ML SOLUTION PO (14:09)
--- NOTE | 2025-04-18 16:00 | ED.ABDPAIN1 ---
HPI - Abdominal Pain General Chief Complaint: Abdominal Pain Stated Complaint: CONSTIPATION Time Seen by Provider: 04/18/25 13:38 Source: patient Mode of arrival: walk-in History of Present Illness HPI narrative: patient comes to the ER with 4 days history of constipation, he denies any abdominal pain he denies any nausea vomiting or any other concerns, mentioned that he drink enough water and eat enough fibers in his diet he also denies any history of constipation before Patient apparently tried some senna earlier at the beginning of the 4 days and apparently had a small bowel movement, then the patient had MiraLAX 1 time and it did not give him enough effect, he still feels that he needed to go to the bathroom more Related Data Home Medications ?Medication ?Instructions ?Recorded ?Confirmed amlodipine 10 mg tablet mg 03/18/25 clonidine HCl 0.2 mg tablet mg 03/18/25 fosinopril 40 mg tablet mg 03/18/25 metformin 500 mg tablet mg 03/18/25 metoprolol succinate 50 mg mg PO 03/18/25 tablet,extended release 24 hr omeprazole 20 mg capsule,delayed mg 03/18/25 release potassium chloride 20 mEq meq PO 03/18/25 tablet,extended release(part/cryst) simvastatin 40 mg tablet mg 03/18/25 triamcinolone acetonide 0.1 % applic topical 03/18/25 topical cream Previous Rx's ?Medication ?Instructions ?Recorded bisacodyl 5 mg tablet,delayed 5 mg PO DAILY PRN constipation #10 04/18/25 release (Dulcolax (bisacodyl)) tabs Allergies Allergy/AdvReac Type Severity Reaction Status Date / Time Penicillins Allergy Unknown Unknown Verified 03/18/25 01:23 hydrochlorothiazide Allergy shake Verified 03/18/25 01:23 adhesive tape AdvReac Rash Verified 03/18/25 01:23 Review of Systems ROS Status of ROS 10 or more systems reviewed and unremarkable except as noted in history and below [facility] Medical History (Updated 04/18/25 @ 14:03 by Christel Valle MD) A-fib ?I48.91 - Unspecified atrial fibrillation (ICD-10) Kidney stones ?N20.0 - Calculus of kidney (ICD-10) Skin cancer ?C44.90 - Unspecified malignant neoplasm of skin, unspecified (ICD-10) GERD (gastroesophageal reflux disease) ?K21.9 - Gastro-esophageal reflux disease without esophagitis (ICD-10) Diabetes ?E11.9 - Type 2 diabetes mellitus without complications (ICD-10) Hypertension ?I10 - Essential (primary) hypertension (ICD-10) Surgical History (Updated 03/18/25 @ 01:25 by Patrizia Molina) History of cardiac ablation for atrial fibrillation ?Z98.890 - Other specified postprocedural states (ICD-10) ?I48.91 - Unspecified atrial fibrillation (ICD-10) Hx of tonsillectomy ?Z90.89 - Acquired absence of other organs (ICD-10) Social History Little interest or pleasure in doing things: not at all Feeling down, depressed, or hopeless: not at all Exam Narrative Exam Narrative: Nurses notes and vital signs reviewed and patient is not hypoxic. General: Well-appearing and in no apparent distress. Skin: Warm, dry, no pallor noted. No rash. Head: Normocephalic, atraumatic. Neck: Supple, non-tender. Eye: Pupils are equal, round and EOMI. No scleral icterus. Cardiovascular: Regular Rate and Rhythm without murmur, gallop or rub. Respiratory: No accessory muscle use or respiratory distress. Lungs are clear to auscultation, no wheezing, rales or rhonchi Chest Wall: no tenderness Back: No midline thoracic or lumbar vertebral tenderness. No CVA tenderness Musculoskeletal: normal ROM, no calf or popliteal tenderness, no lower extremity edema/swelling GI: Abdomen is soft, non-distended. Normal bowel sounds. No masses appreciated. No tenderness to palpation. No rebound, guarding, or rigidity noted. Neurological: A&O x4. No cranial nerve dysfunction observed. No truncal ataxia. Moves all extremities. Sensation intact. Psychiatric: Cooperative and interactive. Normal mood and affect. Constitutional Vital Signs, click to edit/add: Last Vital Signs Temp 97.5 F L 04/18/25 13:36 Pulse 51 L 04/18/25 13:36 Resp 16 04/18/25 13:36 BP 176/90 H 04/18/25 13:36 Pulse Ox 95 04/18/25 13:36 O2 Del Method Room Air 04/18/25 13:36 Course Vital Signs Vital signs: Vital Signs Temperature 97.5 F L 04/18/25 13:36 Pulse Rate 51 L 04/18/25 13:36 Respiratory Rate 16 04/18/25 13:36 Blood Pressure 176/90 H 04/18/25 13:36 Pulse Oximetry 95 04/18/25 13:36 Oxygen Delivery Method Room Air 04/18/25 13:36 Temperature 97.5 F L 04/18/25 13:36 Pulse Rate 51 L 04/18/25 13:36 Respiratory Rate 16 04/18/25 13:36 Blood Pressure 176/90 H 04/18/25 13:36 Pulse Oximetry 95 04/18/25 13:36 Oxygen Delivery Method Room Air 04/18/25 13:36 MDM - Abdominal Pain MDM Narrative Medical decision making narrative: The patient had a colonoscopy done in 2022 that had no acute finding and it His abdomen is benign and soft with no tenderness He does not have any nausea vomiting or any other concerning Right now the patient was provided with magnesium citrate at the 1 dose to help him with constipation after that he will start by 48 hours Dulcolax daily as needed for constipation I did explain to the patient the importance of hydration and fiber intake and ambulation Also the patient educated about alarming symptoms that would bring him back to the ER As per my assessment the patient is not taking enough laxative to help controlling his constipation and he is eager to have a bowel movement The patient is to follow up with primary care physician in next 2-3 days or to return to the emergency department should any of the signs or symptoms worsen or new symptoms develop. The patient agrees with the following Diagnosis and Treatment plan and the patient will be discharged home. Discharge Plan Discharge Chief Complaint: Abdominal Pain Clinical Impression: Constipation Patient Disposition: Home, Self-Care Time of Disposition Decision: 14:03 Condition: Good Mode of Transportation: Private Vehicle Prescriptions / Home Meds: New bisacodyl [Dulcolax (bisacodyl)] 5 mg tablet,delayed release (DR/EC) 5 mg PO DAILY PRN (Reason: constipation) Qty: 10 0RF No Action metformin 500 mg tablet metoprolol succinate 50 mg tablet extended release 24 hr PO triamcinolone acetonide 0.1 % cream TOPICAL simvastatin 40 mg tablet clonidine HCl 0.2 mg tablet potassium chloride 20 mEq tablet,ER particles/crystals PO amlodipine 10 mg tablet fosinopril 40 mg tablet omeprazole 20 mg capsule,delayed release(DR/EC) Print Language: Kittitian Instructions: Constipation (DC) Referrals: PAT DASILVA [Primary Care Provider, Internal Medicine] - 1 week Discharge Date/Time: 04/18/25 14:13
== END 2025-04-18 14:13 | disposition home or self-care (01) ==
PROVIDERS: Emergency Provider Emergency Medicine; PCP Internal Medicine
DX: K59.00 Constipation, unspecified (principal)
CPT/HCPCS: 99283

== ENCOUNTER 2025-04-24 08:34 | Outpatient (OUT) | payer MEDICARE, OTHER, SELFPAY ==
--- OUTSIDE RECORDS SUMMARY | 2025-04-10 06:41 | XMS_ITS | Encounter Summary ---
Author Organization [facility] Address [address] [place] [address] Care Team Providers Care Risk Control Field Representative Name Role Phone Patti Thomas MD Primary Care Provider [phone] Reason for Referral * (Routine) - Pending Review Specialty Diagnoses / Procedures Referred By Contac t Referred To Contact Procedures ECG 12 lead Ten Eckert MD [address] [place] [address] Phone: tel: fax: Referral ID Status Reason Start Date Expiration Date V isits Requested Visits Authorized [id number] Pending Review 04/10/2025 04/10/2026 1 1 * (Routine) - Pending Review Specialty Diagnoses / Procedures Referred By Contac t Referred To Contact Procedures ECG 12 lead Ten Eckert MD [address] [place] [address] Phone: tel: fax: Referral ID Status Reason Start Date Expiration Date V isits Requested Visits Authorized [id number] Pending Review 04/10/2025 04/10/2026 1 1 Reason for Visit * Auth/Cert (Routine) Specialty Diagnoses / Procedures Referred By Contac t Referred To Contact Diagnoses PAF (paroxysmal atrial fibrillation) (CMS/HCC) PAF (paroxysmal atrial fibrillation) (CMS/HCC) [I48.0] Procedures RI CARDIOVERSION ELECTIVE ARRHYTHMIA EXTERNAL RI CARDIOVERSION ELECTIVE ARRHYTHMIA INTERNAL SPX Cardioversion Ten Eckert MD [address] [place] [address] Phone: tel: fax: [facility] [address] [place] [address] Phone: tel: fax: Referral ID Status Reason Start Date Expiration Date Visits Re quested Visits Authorized [id number] 1 1 Encounter Details Date Type Department Care Team (Late st Contact Info) Description 04/10/2025 6:41 AM EDT - 04/10/2025 10:19 AM EDT Hospital Encounter [facility] [address] [place] [address] Ten Eckert MD [address] [place] [address] PAF (paroxysmal atrial fibrillation) ([facility]) Discharge Disposition: Home or Self Care () Social History Tobacco Use Types Packs/Day Years Used Date Smoking Tobacco: Never Smokeless Tobacco: Never Alcohol Use Standard Drinks/Week Comments Not Currently 0 (1 standard drink = 0.6 oz pur e alcohol) [place] Safety & Environment Answer Date Rec orded Fear of Current or Ex-Partner Not on file Emotionally Abused Not on file 12/31/2023 Physically Abused Not on file 12/31/2023 Sexually Abused Not on file 12/31/2023 Physically or Sexually Abused Not on file Sex and Gender Information Value Date Recorded Sex Assigned at Not on file Legal Sex Male 12:30 AM EDT Gender Identity Not on file Sexual Orientation Not on file documented as of this encounter Last Filed Vital Signs Vital Sign Reading Time Taken Comments Blood Pressure 123/71 04/10/2025 10:02 AM EDT Pulse 44 04/10/2025 10:02 AM EDT Temperature - - Respiratory Rate 14 04/10/2025 10:02 AM EDT Oxygen Saturation 97% 04/10/2025 10:02 AM EDT Inhaled Oxygen Concentration - - Weight - - Height - - Body Mass Index - - documented in this encounter Discharge Instructions * Attachments The following attachments cannot be sent through Care Everywhere. * Electrical Cardioversion Care After (Swedish) * Moderate Conscious Sedation Adult Care After (Swedish) documented in this encounter Medications at Time of Discharge amiodarone (Pacerone) 200 mg tabletIndications: PAF (paroxysmal atrial fibrillation) (CMS/HCC) Take 2 tablets (400 mg) by mouth two times daily for 14 days, THEN 1 tablet (200 mg) once daily as directed. 146 tablet 03/21/2025 5 amLODIPine (Norvasc) 10 mg tablet amlodipine 10 mg tablet TAKE ONE TABLET BY MOUTH DAILY apixaban (Eliquis) 5 mg tablet Eliquis 5 mg tablet TAKE ONE TABLET BY MOUTH TWICE A DAY 02/05/2022 cloNIDine (Catapres) 0.1 mg tabletIndications: Essential hypertension Take 1 tablet (0.1 mg) by mouth in the morning and at bedtime. 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 180 tablet 3 11/22/2024 6 empagliflozin (Jardiance) 25 mg Take 12.5 mg by mouth in the morning. 04/11/2024 fosinopril (Monopril) 40 mg tablet fosinopril 40 mg tablet TAKE ONE TABLET BY MOUTH DAILY FOR 90 DAYS 03/19/2019 lisinopril 40 mg tablet Take 40 mg by mouth in the morning. metFORMIN (Glucophage) 500 mg tablet Take 500 mg by mouth with breakfast. 05/06/2019 metoprolol succinate XL (Toprol-XL) 50 mg 24 hr tablet metoprolol succinate ER 50 mg tablet,extended release 24 hr TAKE ONE TABLET BY MOUTH DAILY FOR 90 DAYS 01/18/2020 omeprazole (PriLOSEC) [address] capsule omeprazole 20 mg capsule,delayed release TAKE ONE CAPSULE BY MOUTH ONCE DAILY 30 MINUTES BEFORE MEAL potassium chloride CR (Klor-Con M20) 20 mEq ER tablet potassium chloride ER 20 mEq tablet,extended release(part/cry st) TAKE ONE TABLET BY MOUTH THREE TIMES A DAY 06/03/2019 simvastatin (Zocor) 40 mg tablet simvastatin 40 mg tablet TAKE ONE TABLET BY MOUTH DAILY FOR 90 DAYS 03/16/2019 documented as of this encounter H&P Notes * Ten Eckert MD - 04/10/2025 9:26 AM EDT Images from the original note were not included. [place] Cardiology Consult Note Reason for visit: s/p PVI 03/21/25 Patient is here today for a follow up from [facility] ER. Patient states he was in the ER for pneumonia int he LLL, while in the ER patient was told he was back in A- Fib. Patient has no cardiac complaints. Patient has a follow up with PCP 03/23/2025. EKG 03/21/25 atrial fibrillation 11/22/24 Patient here for 6 mo follow [...] He denies chest pain, SOB, palpitations, lightheadedness/syncope, a nd bleeding on Eliquis. LE edema continues to [...] RAUSCH, palpitations, lightness 04/28/23 dr eckert HPI: Maikel Tomlin is a 74 y.o. year old with past medical history of a-fib s/p ablation 11/27/2020, DCCV 01/2021, hypertension, dm2, and obstructive sleep apnea. He states he has been doing well since last visit with no palpitations. EKG 04/28/2023 SR showed normal qtc on flecainide Previous HPI per Joel [employer] 04/22/2022: 71 yo male PMH of HTN, [...] Global left ventricular systolic function is moderately reduced.The EF is 35 % visually. Leftventricular wall [...] was difficulty & gentle pressure applied no bleedinghowever ENT vs GI eval is recommended Limited [...] suboptimal imaging Definity contrast was administered for opacificationand better delineation of endocardial borders. PMH: Past Medical History: Diagnosis Date Abnormal ECG Arrhythmia Atrial fibrillation (CMS/HCC) Diabetes mellitus (CMS/HCC) Hyperlipidemia Hypertension Sleep apnea Patient Active Problem List Diagnosis Other abnormal cytological findings on specimens from anus Benign prostatic hyperplasia with urinary obstruction Calculus of ureter Cortical age-related cataract of both eyes Diabetes mellitus (CMS/HCC) Diverticulitis of colon Enlarged prostate Essential hypertension Family history of nephrolithiasis Flank pain Gastroesophageal reflux disease with esophagitis without hemorrhage High prostate specific antigen (PSA) History of endocrine disorder History of renal calculi Hyperlipidemia Hypertrophy of bladder Increased frequency of urination Microscopic hematuria Nocturia Obstructive sleep apnea syndrome Overweight with body mass index (BMI) 25.0-29.9 Persistent atrial fibrillation (CMS/HCC) Diabetic renal disease (CMS/HCC) Sensorineural hearing loss, bilateral Stage 3b chronic kidney disease (CMS/HCC) Third degree heart block (CMS/HCC) Urinary urgency Retained ureteral stent Renal calculi Hematuria Anticoagulated Acquired hammer toe of left foot Callus Diabetic peripheral neuropathy associated with type 2 diabetes mellitus (CMS/HCC) Diverticulosis Encounter for therapeutic drug level monitoring Hyperplasia of prostate with lower urinary tract symptoms (LUTS) Hypokalemia 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 Tinea unguium CPAP (continuous positive airway pressure) dependence Dermatitis Encounter for fitting and adjustment of hearing aid Other hammer toe(s) (acquired), left foot Knee joint stiffness, bilateral Type 2 diabetes mellitus without complications (CMS/HCC) PAF (paroxysmal atrial fibrillation) (CMS/HCC) PSH: Past Surgical History: Procedure Laterality Date ABLATION OF DYSRHYTHMIC FOCUS CARDIOVERSION CTA CHEST W IV CONTRAST 12/09/2020 CT CHEST ANGIOGRAM W AND/OR WO IV CONTRAST WILLIS CONVERSION KIDNEY STONE SURGERY SH: Social Determinants of Health Tobacco Use: Low Risk (03/23/2025) Received from [facility] Patient History Smoking Tobacco Use: Never Smokeless Tobacco Use: Never Passive Exposure: Not on file Alcohol Use: Not on file Financial Resource Strain: Not on file Food Insecurity: Not on file Transportation Needs: Not on file Physical Activity: Not on file Stress: Not on file Social Connections: Not on file Intimate Partner Violence: Unknown (12/31/2023) [place] Safety & Environment Fear of Current or Ex-Partner: Not on file Emotionally Abused: Not on file Physically Abused: Not on file Sexually Abused: Not on file Physically or Sexually Abused: Not on file Depression: Not at risk (08/02/2024) Received from [facility] PHQ-2 Patient Health Questionnaire-2 Score: 0 Housing Stability: Not on file Utilities: Not on file Health Literacy: Not on file Allergies: Allergies Allergen Reactions Adhesive Tape-Silicones Hydrochlorothiazide Unknown Penicillins Other, Rash and Unknown Weight: 105kg Meds: No current facility-administered medications on file prior to encounter. Current Outpatient Medications on File Prior to Encounter Medication Sig Dispense Refill amiodarone (Pacerone) 200 mg tablet Take 2 tablets (400 mg) by mouth two times daily for 14 days, THEN 1 tablet (200 mg) once daily as directed. 146 tablet 0 amLODIPine (Norvasc) 10 mg tablet amlodipine 10 mg tablet TAKE ONE TABLET BY MOUTH DAILY apixaban (Eliquis) 5 mg tablet Eliquis 5 mg tablet TAKE ONE TABLET BY MOUTH TWICE A DAY cloNIDine (Catapres) 0.1 mg tablet Take 1 tablet (0.1 mg) by mouth in the morning and at bedtime. 180 tablet 3 cloNIDine (Catapres) 0.2 mg tablet Take 1 tablet (0.2 mg) by mouth two times daily. 180 tablet 3 empagliflozin (Jardiance) 25 mg Take 12.5 mg by mouth in the morning. fosinopril (Monopril) 40 mg tablet fosinopril 40 mg tablet TAKE ONE TABLET BY MOUTH DAILY FOR 90 DAYS metFORMIN (Glucophage) 500 mg tablet Take 500 mg by mouth with breakfast. metoprolol succinate XL (Toprol-XL) 50 mg 24 hr tablet metoprolol succinate ER 50 mg tablet,extended release 24 hr TAKE ONE TABLET BY MOUTH DAILY FOR 90 DAYS omeprazole (PriLOSEC) [address] capsule omeprazole 20 mg capsule,delayed release TAKE ONE CAPSULE BY MOUTH ONCE DAILY 30 MINUTES BEFORE MEAL potassium chloride CR (Klor-Con M20) 20 mEq ER tablet potassium chloride ER 20 mEq tablet,extended release(part/cryst) TAKE ONE TABLET BY MOUTH THREE TIMES A DAY simvastatin (Zocor) 40 mg tablet simvastatin 40 mg tablet TAKE ONE TABLET BY MOUTH DAILY FOR 90 DAYS lisinopril 40 mg tablet Take 40 mg by mouth in the morning. Review of Systems HENT: Positive for hearing loss. All other systems reviewed and are negative. Physical Exam: Constitutional General Appearance: well-nourished, well-developed, appears stated age Level of Distress: comfortable Psychiatric Mental Status: alert, normal affect Orientation: oriented to time, place, and person Insight: good judgement Eyes Lids and Conjunctivae: non-injected, no xanthelasma ENMT Ears: no lesions on external ear Nose: no lesions on external nose Oropharynx: no cyanosis, no pallor Neck Neck: supple, trachea midline Carotid Arteries: bilateral normal upstroke, no bruits Jugular Veins: normal jugular venous pressure Thyroid: not enlarged Lungs Respiratory Effort: unlabored Chest Exam: normal curvature, no thoracic deformity Auscultation: clear, no wheezing, no rales, no rhonchi Cardiovascular Rate And Rhythm: regular Heart Sounds: normal S1, normal s2, no gallop Systolic Murmur: not heard Diastolic Murmur: not heard Extremities: no cyanosis, no edema, no peripheral signs of emboli Peripheral Pulses Radial Pulse: normal Abdomen Inspection and Palpation: soft, non distended, no bruit, non tender Musculoskeletal Inspection: no joint swelling Neurologic Gait: normal gait Skin Inspection and Palpation: warm and dry Nails: no clubbing Labs: Labs reviewed from 07/08/2022 Lab Results Component Value Date TSH 1.52 07/24/2020 EKG: Echo: 11/04/23 LIZBETH 11/29/2020 Stress test: 08/06/2020 Coronary angiogram: @CATH@ Diagnostic Imaging: EP study: 11/27/20 Afib ablation LA baseline 14/6 (11)mmHg LA 600ms pacing [...] with tachycardia suggestive of mild diastolic dysfunction. Assessment and Plan: Persistent atrial fibrillation s/p PVI 11/2020 Patient had a recurrence of atrial fibrillation when he came down with pneumonia. Unfortunately he is not aware when he is in A-fib and when he is not. Will proceed with loop monitor for AF surveillance and to plan for ablation if he is in A-fib. Will plan on starting him on amiodarone and possible cardioversion if he does not convert on his own -[id number]: 3. Ct DOAC. continue focus on risk factor modification Essential hypertension blood pressure readings are elevated and I have suggested that he keep a blood pressure log of readings at 8 AM 2 PM and 8 PM -continue fosinopril 40 mg once daily, norvasc 10 mg once daily, Toprol-XL 50 mg once daily. will increase Clonidine to 0.2 mg twice daily and see how he does. Hyperlipidemia Lipid abnormalities are stable, continue crestor I discussed about cardioversion and the associated Immediate and web editor Risks as below and pt has agreed to proceed. Failure to convert: The electrical shock may not be strong enough to restore a regular heartbeat. Stroke: If a blood clot is present in the heart, the shock could dislodge it and cause a stroke. Low blood pressure: The shock may cause a temporary drop in blood pressure. Benavides: Skin benavides may occur where the electrodes are placed. Long-Term Risks: Recurrence of arrhythmia: The abnormal heartbeat may return after cardioversion. Heart damage: In rare cases, the electrical shock can damage the heart. Increased risk of blood clots: If the procedure is performed to treat atrial fibrillation, the riskof blood clots may increase in the intermediate. Ten Eckert MD Cardiac Electrophysiology [facility] documented in this encounter Procedure Notes * Ten Eckert MD - 04/10/2025 10:19 AM EDT DIRECT CARDIOVERSION PROCEDURE NOTE Date: 04/10/2025. Type of procedure: DC Cardioversion. Performed by: Ten Eckert MD Informed consent: Signed by patient. Preparation and technique: Patient was brought into the procedure room. After an informed consent was obtained following a discussion with the patient where I explained the risk and benefit of the procedure that is not limitedto skin benavides, fluid in the lungs, heart attack, stroke, or even , though that is very rare. Patches were placed in anteroposterior direction and once patient was made comfortable with Versed and Fentanyl. Following sedation, the patient underwent synchronized cardioversion using 360J which converted to sinus rhythm. Post procedure, the patient was stable. No complications noted. Plan: Continue anticoagulation and consider ablation. Ten Eckert MD Cardiac Electrophysiology documented in this encounter Nursing Notes * Heidy Tim RN - 04/10/2025 10:15 AM EDT RN educated pt on discharge instructions. RN encouraged pt to voice any questions or concerns. Pt verbalizes no questions or concerns at this time. Pt was wheeled off unit with all belongings, including hearing aides and glasses. documented in this encounter Miscellaneous Notes * Pre-Sedation Documentation - Ten Eckert MD - 04/10/2025 9:26 AM EDT Patient: Rhys Tomlin Procedure Information Date/Time: 04/10/25829 Procedure: Cardioversion - PC APPROVED Location: [facility] RISK CONTROL FIELD REPRESENTATIVE HOLDING ROOM / [facility] (Cath) Providers: Ten Eckert MD Clinical information reviewed: Allergies Meds Physical Exam Airway Mallampati: II TM distance: >3 FB Neck ROM: full Cardiovascular Dental Pulmonary Abdominal Anesthesia Plan ASA 3 CSE Anesthetic plan and risks discussed with patient. Use of blood products discussed with patient who. Additional Equipment Requests documented in this encounter Plan of Treatment Upcoming Encounters Date Type Department Care Team (Late st Contact Info) Description 05/15/2025 9:40 AM EDT Follow-Up [facility] Heart [facility] [address] [place] [address] Kenn Koenig CNP [address] [place] [address] documented as of this encounter Procedures Procedure Name Priority Date/Time Associated Diagnosis Comments ECG 12-LEAD Routine 04/10/2025 9:49 AM EDT CARDIOVERSION Routine 04/10/2025 9:34 AM EDT PAF (paroxysmal atrial fibrillation) (CMS/HCC) ECG 12-LEAD Routine 04/10/2025 8:31 AM EDT documented in this encounter Results * ECG 12 lead (04/10/2025 9:49 AM EDT) Ventricular Rate 44 BPM GE MUSE Atrial Rate 44 BPM GE MUSE RI Interval 220 ms GE MUSE QRS DURATION 94 ms GE MUSE QT Interval 484 ms GE MUSE QTC CALCULATION(BAZE TT) 413 ms GE MUSE P [place] 22 degrees GE MUSE R-[place] 3 degrees GE MUSE T Wave [place] 5 degrees GE MUSE 04/10/2025 9:44 AM EDT 04/10/2025 10:52 AM EDT Impressions GE MUSE - 04/10/2025 10:52 AM EDT Marked sinus bradycardia with 1st degree A-V block Nonspecific T wave abnormality Abnormal ECG When compared with ECG of 10-APR-2025 07:21, Sinus rhythm has replaced Atrial fibrillation Confirmed by Dora SHERWOOD SAMER J. ([id number]) on 04/10/2025 10:52:37 AM Narrative Procedure Note Emi Sherwood MD - 04/10/2025 IMPRESSION: Marked sinus bradycardia with 1st degree A-V block Nonspecific T wave abnormality Abnormal ECG When compared with ECG of 10-APR-2025 07:21, Sinus rhythm has replaced Atrial fibrillation Confirmed by Dora SHERWOOD SAMER J. ([id number]) on 04/10/2025 10:52:37 AM us Ten Eckert MD ECG ORDERABLES Final Result GE MUSE * CARDIOVERSION (04/10/2025 9:34 AM EDT) Anatomical Region Laterality Modality Other Narrative 04/13/2025 11:33 AM EDT DIRECT CARDIOVERSION PROCEDURE NOTE Date: 04/10/2025. Type of procedure: DC Cardioversion. Performed by: Ten Eckert MD Informed consent: Signed by patient. Preparation and technique: Patient was brought into the procedure room. After an informed consent was obtained following a discussion with the patient where I explained the risk and benefit of the procedure that is not limited to skin benavides, fluid in the lungs, heart attack, stroke, or even , though that is very rare. Patches were placed in anteroposterior direction and once patient was made comfortable with Versed and Fentanyl. Following sedation, the patient underwent synchronized cardioversion using 360J which converted to sinus rhythm. Post procedure, the patient was stable. No complications noted. Plan: Continue anticoagulation and consider ablation. Ten Eckert MD Cardiac Electrophysiology us Ten Eckert MD CV ELECTROPHYSIOLOGY PROCEDURES Final Result * ECG 12 lead (04/10/2025 8:31 AM EDT) Ventricular Rate 54 BPM GE MUSE QRS DURATION 88 ms GE MUSE QT Interval 492 ms GE MUSE QTC CALCULATION(BAZE TT) 466 ms GE MUSE R-[place] -1 degrees GE MUSE T Wave [place] -3 degrees GE MUSE 04/10/2025 7:21 AM EDT 04/10/2025 8:55 AM EDT Impressions GE MUSE - 04/10/2025 8:55 AM EDT Atrial fibrillation with slow ventricular response Abnormal ECG When compared with ECG of 19-MAR-2021 16:36, Previous ECG has undetermined rhythm, needs review Questionable change in QRS axis Confirmed by Dora SHERWOOD SAMER J. ([id number]) on 04/10/2025 8:55:30 AM Narrative Procedure Note Emi Sherwood MD - 04/10/2025 IMPRESSION: Atrial fibrillation with slow ventricular response Abnormal ECG When compared with ECG of 19-MAR-2021 16:36, Previous ECG has undetermined rhythm, needs review Questionable change in QRS axis Confirmed by Dora SHERWOOD SAMER J. ([id number]) on 04/10/2025 8:55:30 AM us Ten Eckert MD ECG ORDERABLES Final Result GE MUSE documented in this encounter Visit Diagnoses Diagnosis PAF (paroxysmal atrial fibrillation) (CMS/HCC)- Primary Atrial fibrillation PAF (paroxysmal atrial fibrillation) (CMS/HCC) Atrial fibrillation documented in this encounter Admitting Diagnoses Diagnosis PAF (paroxysmal atrial fibrillation) (CMS/HCC) Atrial fibrillation documented in this encounter Active and Recently Administered Medications Times are shown in EDT. PRN Medication Order 04/08/2025 04/09/2025 04/10/2025 fentaNYL (Sublimaze) injection (CANCELED) As needed, Starting on Thu04/10/25 at 0930, Intraprocedure 0930 (Given - Provid er: Heidy Tim RN) midazolam (Versed) injection (CANCELED) As needed, Starting on Thu04/10/25 at 0931, Intraprocedure 0931 (Given - Provid er: Heidy Tim RN) documented in this encounter Care Teams Risk Control Field Representative Relationship Specialty Start Date End Date Patti Thomas MD [id number] PCP - General 11/05/22 documented as of this encounter
--- OUTSIDE RECORDS SUMMARY | 2025-04-10 08:30 | XMS_ITS | Encounter Summary ---
Author Organization [facility] Address [address] [place] [address] Care Team Providers Care Setter Machine Name Role Phone Patti Thomas MD Primary Care Provider [phone] Reason for Visit * Auth/Cert (Routine) Specialty Diagnoses / Procedures Referred By Contac t Referred To Contact Diagnoses PAF (paroxysmal atrial fibrillation) (CMS/HCC) PAF (paroxysmal atrial fibrillation) (CMS/HCC) [I48.0] Procedures PA CARDIOVERSION ELECTIVE ARRHYTHMIA EXTERNAL PA CARDIOVERSION ELECTIVE ARRHYTHMIA INTERNAL SPX Cardioversion Ten Eckert MD [address] [place] [address] Phone: tel: fax: [facility] Heart [facility]ascular [facility] [address] [place] [address] Phone: tel: fax: Referral ID Status Reason Start Date Expiration Date Visits Re quested Visits Authorized [id number] 1 1 Encounter Details Date Type Department Care Team (Late st Contact Info) Description 04/10/2025 8:30 AM EDT - 04/10/2025 9:30 AM EDT Surgery [facility] Heart [facility] [address] [place] [address] Ten Eckert MD [address] [place] [address] Cardioversion Social History Tobacco Use Types Packs/Day Years Used Date Smoking Tobacco: Never Smokeless Tobacco: Never Alcohol Use Standard Drinks/Week Comments Not Currently 0 (1 standard drink = 0.6 oz pur e alcohol) [place] Safety & Environment Answer Date Rec orded [...] Sign Reading Time Taken Comments Blood Pressure 129/73 04/10/2025 7:59 AM EDT Pulse 45 04/10/2025 7:59 AM EDT Temperature - - Respiratory Rate 16 04/10/2025 7:59 AM EDT Oxygen Saturation 94% 04/10/2025 7:59 AM EDT Inhaled Oxygen Concentration - - Weight - - Height - - Body Mass Index - - documented in this encounter Discharge Instructions * Attachments The following attachments cannot be sent through Care Everywhere. * Electrical Cardioversion Care After (Ecuadorean) * Moderate Conscious Sedation Adult Care After (Ecuadorean) documented in this encounter Medications at Time of Discharge amiodarone (Pacerone) 200 mg tabletIndications: PAF (paroxysmal atrial fibrillation) ([facility]) Take 2 tablets (400 mg) by mouth [...] two times daily. 180 tablet 3 11/22/2024 empagliflozin (Jardiance) 25 mg Take 12.5 mg [...] from the original note were not included. [place] Cardiology Consult Note Reason for visit: s/p PVI 03/21/25 Patient is here today for a follow up from [facility] ER. Patient states he was in the [...] qtc on flecainide Previous HPI per Joel BLANKENSHIP 04/22/2022: 71 [...] with lower urinary tract symptoms (LUTS) Hypokalemia snf (current) use of anticoagulants Tinea unguium CPAP [...] Tobacco Use: Low Risk (03/23/2025) Received from [facility] Patient History Smoking Tobacco Use: Never Smokeless Tobacco Use: Never Passive Exposure: Not on file Alcohol Use: Not on file Financial Resource Strain: Not on file Food Insecurity: Not on file Transportation Needs: Not on file Physical Activity: Not on file Stress: Not on file Social Connections: Not on file Intimate Partner Violence: Unknown (12/31/2023) [place] Safety & Environment Fear of Current or Ex-Partner: Not on file Emotionally Abused: Not on file Physically Abused: Not on file Sexually Abused: Not on file Physically or Sexually Abused: Not on file Depression: Not at risk (08/02/2024) Received from [facility] PHQ-2 Patient Health Questionnaire-2 Score: 0 Housing [...] he does not convert on his own -[id number]: 3. Ct DOAC. 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 Ten Eckert MD Cardiac Electrophysiology [facility] documented in this encounter Procedure Notes * [...] EDT Patient: Rhys Tomlin Procedure Information Date/Time: 04/10/2530 Procedure: Cardioversion - PC APPROVED Location: [facility] STUDENT SERVICES COUNSELOR HOLDING ROOM / [facility] (Cath) Providers: Ten Eckert [...] Info) Description 05/15/2025 9:40 AM EDT Follow-Up [facility] [address] [place] [address] Kenn Koenig, MANIFEST/ORDER ORGANIZER [employer] [address] [place] [address] documented as of this encounter Procedures Procedure Name Priority Date/Time Associated Diagnosis Comments ECG 12-LEAD Routine 04/10/2025 9:49 AM EDT CARDIOVERSION Routine 04/10/2025 9:34 AM EDT PAF (paroxysmal atrial fibrillation) (CMS/HCC) ECG 12-LEAD Routine 04/10/2025 8:31 AM EDT documented in this encounter Results * ECG 12 lead (04/10/2025 9:49 AM EDT) Ventricular Rate 44 BPM GE MUSE Atrial Rate 44 BPM GE MUSE PA Interval 220 ms GE MUSE QRS DURATION 94 ms GE MUSE QT Interval 484 ms GE MUSE QTC CALCULATION(BAZE TT) 413 ms GE MUSE P [place] 22 degrees GE MUSE R-[place] 3 degrees GE MUSE T Wave [place] 5 degrees GE MUSE 04/10/2025 9:44 AM EDT 04/10/2025 10:52 AM EDT Impressions GE MUSE - 04/10/2025 10:52 AM EDT Marked sinus bradycardia with 1st degree A-V block Nonspecific T wave abnormality Abnormal ECG When compared with ECG of 10-APR-2025 07:21, Sinus rhythm has replaced Atrial fibrillation Confirmed by Dora SHERWOOD, SAMEAnisha J. ([id number]) on 04/10/2025 10:52:37 AM Narrative Procedure Note Emi Sherwood MD - 04/10/2025 IMPRESSION: Marked sinus bradycardia with 1st degree A-V block Nonspecific T wave abnormality Abnormal ECG When compared with ECG of 10-APR-2025 07:21, Sinus rhythm has replaced Atrial fibrillation Confirmed by Dora SHERWOOD SAMER J. ([id number]) on 04/10/2025 10:52:37 AM Ten Eckert MD ECG ORDERABLES Final Result [...] consider ablation. Ten Eckert MD Cardiac Electrophysiology Ten Eckert MD CV ELECTROPHYSIOLOGY PROCEDURES Final Result * ECG 12 lead (04/10/2025 8:31 AM EDT) Ventricular Rate 54 BPM GE MUSE QRS DURATION 88 ms GE MUSE QT Interval 492 ms GE MUSE QTC CALCULATION(BAZE TT) 466 ms GE MUSE R-[place] -1 degrees GE MUSE T Wave [place] -3 degrees GE MUSE 04/10/2025 7:21 AM [...] SAMER J. (57) on 04/10/2025 8:55:30 AM Ten Eckert MD ECG ORDERABLES Final Result GE MUSE documented in this encounter Visit Diagnoses Diagnosis PAF (paroxysmal atrial fibrillation) (CMS/HCC)- Primary Atrial fibrillation PAF (paroxysmal atrial fibrillation) (CMS/HCC) Atrial fibrillation documented in this encounter Admitting Diagnoses Diagnosis PAF (paroxysmal atrial fibrillation) (CMS/HCC) Atrial fibrillation documented in this encounter Administered Medications Inactive Administered Medications - up to 3 most recent administrations Medication Order MAR Action Action Date Dose Rate Site fentaNYL (Sublimaze) injection As needed, Starting on Thu04/10/25 at 0930, Intraprocedure Given 04/10/2025 9:30 AM EDT 25 mcg Right Hand midazolam (Versed) injection As needed, Starting on Thu04/10/25 at 0931, Intraprocedure Given 04/10/2025 9:31 AM EDT 0.5 mg documented in this encounter Active and Recently [...] RN) documented in this encounter Care Teams Setter Machine Relationship Specialty Start Date End Date Patti Thomas MD [address] [facility] [address] PCP - General 11/05/22 documented as of this encounter
--- OUTSIDE RECORDS SUMMARY | 2025-04-24 08:39 | XMS_ITS | Encounter Summary ---
Author Organization [facility] Address [address] [place] [address] Care Team Providers Care Flying Squad Worker Name Role Phone Patti Thomas MD Primary Care Provider [phone] [phone] Encounter Details Date Type Department Care Team (Late st Contact Info) Description 04/12/[address] [address] Ricarda Albrecht MA Social History Tobacco Use Types Packs/Day Years [...] on file documented as of this encounter Plan of Treatment Upcoming Encounters Date Type Department Care Team (Late st Contact Info) Description 05/15/2025 9:40 AM EDT Follow-Up [address] [address] Kenn Koenig, SR RISK MANAGEMENT CONSULTANT [address] [place], [place] [id number] documented as of this encounter Visit Diagnoses Not on filedocumented in this encounter Care Teams Flying Squad Worker Relationship Specialty Start Date End Date Patti Thomas MD [address] PCP - General 11/05/22 documented as of this encounter
--- OUTSIDE RECORDS SUMMARY | 2025-04-24 08:40 | XMS_ITS | Encounter Summary ---
Author Organization [facility] Address [address] [address] Care Team Providers Care Lead Ruby On Rails Developer Name Role Phone Patti Thomas MD Primary Care Provider [phone] Encounter Details Date Type Department Care Team (Late st Contact Info) Description 04/07/2025 Orders Only [place] [address] [place] [address] Provider, MD Makenzie [address] [place], [place] [id number] Social History Tobacco Use Types Packs/Day Years [...] Info) Description 05/15/2025 9:40 AM EDT Follow-Up [facility] [address] [place] [address] Kenn Koenig, ROUTE SALES PERSON [address] [place] [address] documented as of this encounter Procedures Procedure Name Priority Date/Time Associated Diagnosis Comments POTASSIUM Routine 04/07/2025 11:14 AM EDT MAGNESIUM Routine 04/07/2025 11:14 AM EDT documented in this encounter Results * Potassium (04/07/2025 11:14 AM EDT) Blood Venous blood specimen / Unknown Historical Provider LAB BLOOD ORDERABLES Reema l Result * Magnesium (04/07/2025 11:14 AM EDT) Blood Venous blood specimen / Unknown [facility] Provider LAB BLOOD ORDERABLES Reema l Result documented in this encounter Visit Diagnoses Not on filedocumented in this encounter Care Teams Lead Ruby On Rails Developer Relationship Specialty Start Date End Date Patti Thomas MD [address] PCP - General 11/05/22 documented as of this encounter
--- OUTSIDE RECORDS SUMMARY | 2025-04-24 08:40 | XMS_ITS | Clinical Summary ---
Author Organization [facility] Address [facility] [place] [address] Care Team Providers Care Acetylene Torch Burner Name Role Phone Frank Griffith MD Unavailable [phone] Allergies Active Allergy Reactions Criticality Noted Date Comments Adhesive Tape (Rosins) Rash,Itching,Othe r: See Comments 06/03/2019 Penicillins Other: See Comments 06/03/2019 Medications metFORMIN (GLUCOPHAGE) 500 mg tablet Take 500 mg by mouth twice daily. 4 05/06/2019 Active simvastatin (ZOCOR) 40 mg tablet Take 40 mg by mouth once daily. 3 03/16/2019 Active potassium chloride ER (K-DUR, KLOR-CON) 20 mEq tablet Take by mouth. 06/03/2019 Active metoprolol succinate ER (TOPROL XL) 100 mg Tb24 Take 100 mg by mouth once daily. 3 03/16/2019 Active hydroCHLOROthia zide (HYDRODIURIL, ESIDRIX) 12.5 mg tablet TAKE 1 TABLET BY MOUTH EVERY DAY IN THE MORNING 3 03/19/2019 Active amLODIPine (NORVASC) 10 mg tablet Take 10 mg by mouth once daily. 3 05/06/2019 Active oxybutynin (DITROPAN) 5 mg tablet Take 5 mg by mouth twice daily. 2 04/30/2019 Active HYDROcodone-sam taminophen (NORCO) 5-325 mg per tablet TAKE 1 TO 2 TABLETS BY MOUTH 6 TIMES PER DAY NEEDED 0 04/30/2019 Active fosinopril sodium (MONOPRIL) 40 mg tablet Take 40 mg by mouth once daily. 3 03/19/2019 Active Active Problems Problem Noted Date Diagnosed Date Renal calculi 09/01/2019 Flank pain 09/01/2019 Calculus of ureter 06/14/2019 Essential hypertension 06/14/2019 Hyperlipidemia 06/14/2019 Diabetes mellitus 06/14/2019 Family history of nephrolithiasis 06/14/2019 Social History Tobacco Use Types Packs/Day Years Used Date Smoking Tobacco: Never Smokeless Tobacco: Never Area Deprivation Index Answer Date Faisal rded National Score (1-100), lower number is lower ri sk Not on file 10/16/2020 State Score (1-10), lower number is lower risk N ot on file 10/16/2020 Data from: https://www.neighborhoodatlas.[facility]/. Last address used for calculation Not on file 10/16/2020 Sex and Gender Information Value Date Recorded Sex Assigned at Male 06/10/2019 6:55 PM EDT Legal Sex Male 9:21 AM EDT Gender Identity Male 06/10/2019 6:55 PM EDT Sexual Orientation Straight 06/10/2019 6: 55 PM EDT Last Filed Vital Signs Vital Sign Reading Time Taken Comments Blood Pressure 157/79 09/01/2019 2:31 PM EDT Pulse 67 09/01/2019 2:31 PM EDT Temperature - - Respiratory Rate - - Oxygen Saturation - - Inhaled Oxygen Concentration - - Weight 113.7 kg (250 lb 9.6 oz) 09/01/2019 2:31 PM EDT Height 193 cm (6' 4 ) 09/01/2019 2:31 PM EDT Body Mass Index 30.5 09/01/2019 2:31 PM EDT Plan of Treatment Health Maintenance Due Date Last Done Comments Anxiety Screening 1968 Depression Screening 1968 Hepatitis C Screening 1968 DTaP,Tdap,Td Vaccine (1 - Tdap) [address] Colonography 1995 Cologuard (FIT-DNA) 1995 Colonoscopy 1995 Colorectal Cancer Screening 1995 Diabetes Screening 1995 Fecal Occult Blood 1995 Sigmoidoscopy 1995 Pneumococcal Vaccine: 50+ (1 of 1 - PCV) 2000 Shingrix Vaccine (1 of 2) 2000 Covid-19 Vaccine (1 - 2023- season) 2024 Advance Directive Discussion 11/09/2024 Influenza Vaccine (Season Ended) 2025 08/24/20 19, 08/26/2018 RSV Vaccine (1 - 1-dose 75+ series) 2025 Insurance [place]IC[place] [id number] [employer] SUPPLEMENT Care Teams Acetylene Torch Burner Relationship Specialty Start Date End Date Frank Griffith MD [address] [place] [address] Referring Urology 07/26/19
--- OUTSIDE RECORDS SUMMARY | 2025-04-24 08:40 | XMS_ITS | Encounter Summary ---
Author Organization [facility] Address [address] [place] [address] Care Team Providers Care Instructional Specialist Name Role Phone Patti Thomas MD Primary Care Provider [phone] Encounter Details Date Type Department Care Team (Latest Contact Info) Description 04/10/2025 Travel Social History Tobacco Use Types Packs/Day Years [...] Info) Description 05/15/2025 9:40 AM EDT Follow-Up [facility] [address] [place] [address] Kenn Koenig, CHILDREN'S SERVICE WORKER [address] [place] [address] documented as of this encounter Visit Diagnoses Not on filedocumented in this encounter Care Teams Instructional Specialist Relationship Specialty Start Date End Date Patti Thomas MD [address] PCP - General 11/05/22 documented as of this encounter
--- OUTSIDE RECORDS SUMMARY | 2025-04-24 08:40 | XMS_ITS | Referral Summary ---
Author Organization [facility] Address [address] [place] [address] Care Team Providers Care Commercial Tire Service Technician Name Role Phone Patti Thomas MD Primary Care Provider [phone] Encounters Date Type Department Care Team Description 04/12/[address] [phone] Ricarda Albrecht MA 04/12/2025 Orders Only [address] [address] Makenzie Bruner MD 04/10/2025 Travel 04/10/2025 8:30 AM EDT - 04/10/2025 9:30 AM EDT Surgery [facility] [address] [place] [address] Ten Eckert MD Cardioversion 04/10/2025 6:41 AM EDT - 04/10/2025 10:19 AM EDT Hospital Encounter [facility] [place] [facility] [address] [place] [address] Ten Eckert MD PAF (paroxysmal atrial fibrillation) ([facility]/HCC) Discharge Disposition: Home or Self Care () 04/07/2025 Orders Only [address] [address] Makenzie Bruner MD 03/31/2025 Travel 03/31/2025 Orders Only [facility] [address] [place] [address] Arielle Zuniga RN Persistent atrial fibrillation (CMS/HCC) (Primary Dx) 03/21/2025 Orders Only [facility] [address] [place] [address] Mariel Stratton MA PAF (paroxysmal atrial fibrillation) (CMS/HCC) 03/21/2025 Orders Only [facility] [address] [place] [facility] [address] Ricarda Albrecht MA Palpitations; Longstanding persistent atrial fibrillation (CMS/HCC) 03/21/2025 10:30 AM EDT Office Visit [facility] [address] [place] [facility] [address] Ten Eckert MD PAF (paroxysmal atrial fibrillation) (CMS/HCC) from Last 3 Months Allergies Active Allergy Reactions Criticality Noted Date Comments Adhesive Tape-Silicones 11/05/2022 Hydrochlorothiazide Unknown 07/19/2021 Penicillins Other,Rash,Unknown Low 06/03/2019 Medications amLODIPine (Norvasc) 10 mg tablet amlodipine 10 mg tablet TAKE ONE TABLET BY MOUTH DAILY Active apixaban (Eliquis) 5 mg tablet Eliquis 5 mg tablet TAKE ONE TABLET BY MOUTH TWICE A DAY 2 Active fosinopril (Monopril) 40 mg tablet fosinopril 40 mg tablet TAKE ONE TABLET BY MOUTH DAILY FOR 90 DAYS 9 Active metFORMIN (Glucophage) 500 mg tablet Take 500 mg by mouth with breakfast. 9 Active metoprolol succinate XL (Toprol-XL) 50 mg 24 hr tablet metoprolol succinate ER 50 mg tablet,extended release 24 hr TAKE ONE TABLET BY MOUTH DAILY FOR 90 DAYS 0 Active omeprazole (PriLOSEC) [address] capsule omeprazole 20 mg capsule,delayed release TAKE ONE CAPSULE BY MOUTH ONCE DAILY 30 MINUTES BEFORE MEAL Active potassium chloride CR (Klor-Con M20) 20 mEq ER tablet potassium chloride ER 20 mEq tablet,extended release(part/cr yst) TAKE ONE TABLET BY MOUTH THREE TIMES A DAY 9 Active simvastatin (Zocor) 40 mg tablet simvastatin 40 mg tablet TAKE ONE TABLET BY MOUTH DAILY FOR 90 DAYS 9 Active empagliflozin (Jardiance) 25 mg Take 12.5 mg by mouth in the morning. 4 Active cloNIDine (Catapres) 0.1 mg tabletIndication s:Essential hypertension Take 1 tablet (0.1 mg) by mouth in the morning and at bedtime. 180 tablet 3 4 05/24/20 25 Active cloNIDine (Catapres) 0.2 mg tabletIndication s:Benign hypertensive heart disease without congestive heart failure Take 1 tablet (0.2 mg) by mouth two times daily. 180 tablet 3 5 11/22/19 26 Active lisinopril 40 mg tablet Take 40 mg by mouth in the morning. Active amiodarone (Pacerone) 200 mg tabletIndication s:PAF (paroxysmal atrial fibrillation) (CMS/HCC) Take 2 tablets (400 mg) by mouth two times daily for 14 days, THEN 1 tablet (200 mg) once daily as directed. 146 tablet 5 07/02/20 25 Active Active Problems Problem Noted Date Diagnosed Date PAF (paroxysmal atrial fibrillation) 03/21/2025 Type 2 diabetes mellitus without complications 0 11/22/2024 Knee joint stiffness, bilateral 08/09/2024 Overview (11/22/2024): At this time, not really interfering with function Advised can use topical Voltaren gel and do stretches (handouts provided) Encounter for fitting and adjustment of hearing aid 05/24/2024 Other hammer toe(s) (acquired), left foot 2023 Dermatitis 04/05/2024 CPAP (continuous positive airway pressure) depfransico johnson 12/01/2023 Overview (05/24/2024): He reports he is using nightly and continues to have good response Acquired hammer toe of left foot 10/26/2023 10/26/2023 Callus 10/26/2023 10/26/2023 Diabetic peripheral neuropat hy associated with type 2 diabetes mellitus 10/26/2023 10/26/2023 Encounter for therapeutic drug level monitoring 10/26/2023 10/26/2023 Hypokalemia 10/26/2023 10/26/2023 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 202210/26/2023 Tinea unguium 10/26/2023 10/26/2023 Diverticulosis 07/20/2023 10/26/2023 Hyperplasia of prostate with lower urinary tract symptoms (LUTS) 07/20/2023 10/26/2023 Overview (10/26/2023): Last Assessment & Plan: He is scheduled for a cystoscopy at the end of the month Retained ureteral stent 04/28/2023 Hematuria 04/28/2023 Anticoagulated 04/28/2023 Other abnormal cytological findings on specimens from anus 11/05/2022 Benign prostatic hyperplasia with urinary obstru ction 11/05/2022 High prostate specific antigen (PSA) 11/05/2022 History of renal calculi 11/05/2022 Hypertrophy of bladder 11/05/2022 Increased frequency of urination 11/05/2022 Microscopic hematuria 11/05/2022 Nocturia 11/05/2022 Overweight with body mass index (BMI) 25.0-29.9 11/05/2022 Urinary urgency 11/05/2022 Stage 3b chronic kidney disease 07/19/2021 Gastroesophageal reflux dise ase with esophagitis without hemorrhage 04/10/2021 Obstructive sleep apnea syndrome 12/06/2020 Persistent atrial fibrillation 09/10/2020 Assessment & Plan (11/05/2022 4:00 PM EST): -Sr today -continue flecainide, eliquis, metoprolol -will discuss plan of flecainide on follow up with Dr. Eckert -[id number]: 3 Third degree heart block 08/03/2020 Diverticulitis of colon 07/03/2020 Enlarged prostate 07/03/2020 Cortical age-related cataract of both eyes 09/06 Flank pain 09/01/2019 Renal calculi 09/01/2019 Calculus of ureter 06/14/2019 Diabetes mellitus 06/14/2019 Family history of nephrolithiasis 06/14/2019 Sensorineural hearing loss, bilateral 01/12/2017 History of endocrine disorder 11/27/2016 Diabetic renal disease 11/27/2016 Essential hypertension 11/06/2015 Assessment & Plan (11/05/2022 3:57 PM EST): Hypertension is stable per home readings but he will send us home readings to verify -continue fosinopril, norvasc, metoprolol Hyperlipidemia 11/06/2015 Assessment & Plan (11/05/2022 3:59 PM EST): Lipid abnormalities are stable, continue crestor -LDL 98 on 08/08. -continue zocor, may consider redraw of lipids on follow to assess further interventions Social History Tobacco Use Types Packs/Day Years Used Date Smoking Tobacco: Never Smokeless Tobacco: Never Tobacco Cessation:Counseling Given: Not Answered Alcohol Use Standard Drinks/Week Comments Not Currently [...] on file Sexual Orientation Not on file Last Filed Vital Signs Vital Sign Reading Time Taken Comments Blood Pressure 123/71 04/10/2025 10:02 AM EDT Pulse 44 04/10/2025 10:02 AM EDT Temperature - - Respiratory Rate 14 04/10/2025 10:02 AM EDT Oxygen Saturation 97% 04/10/2025 10:02 AM EDT Inhaled Oxygen Concentration - - Weight 105 kg (232 lb) 03/21/2025 11:19 AM EDT Height 193 cm (6' 4 ) 03/21/2025 11:19 AM EDT Body Mass Index 28.24 03/21/2025 11:19 AM EDT Plan of Treatment Upcoming Encounters Date Type Department Care Team (Late st Contact Info) Description 05/15/2025 9:40 AM EDT Follow-Up [facility] [address] [place] [address] Kenn Koenig, SHOE COBBLER [address] [place] [address] Procedures Procedure Name Priority Date/Time Associated Diagnosis Comments ECG 12-LEAD Routine 04/10/2025 9:49 AM EDT CARDIOVERSION Routine 04/10/2025 9:34 AM EDT PAF (paroxysmal atrial fibrillation) (CMS/HCC) ECG 12-LEAD Routine 04/10/2025 8:31 AM EDT POTASSIUM Routine 04/07/2025 11:14 AM EDT MAGNESIUM Routine 04/07/2025 11:14 AM EDT ECG 12-LEAD Routine 04/07/2025 8:56 AM EDT ECG 12 LEAD UNIT PERFORMED Routine 03/21/2025 11:54 AM EDT PAF (paroxysmal atrial fibrillation) (CMS/HCC) from Last 3 Months Results * ECG 12 lead (04/10/2025 9:49 AM EDT) Only the most recent of3 resultswithin the time period is included. Ventricular Rate 44 BPM GE MUSE Atrial Rate 44 BPM GE MUSE ME Interval 220 ms GE MUSE QRS DURATION 94 ms GE MUSE QT Interval 484 ms GE MUSE QTC CALCULATION(BAZE TT) 413 ms GE MUSE P [place] 22 degrees GE MUSE R-[place] 3 degrees GE MUSE T Wave [place] 5 degrees GE MUSE 04/10/2025 9:44 AM EDT 04/10/2025 10:52 AM EDT Impressions GE MUSE - 04/10/2025 10:52 AM EDT Marked sinus bradycardia with 1st degree A-V block Nonspecific T wave abnormality Abnormal ECG When compared with ECG of 10-APR-2025 07:21, Sinus rhythm has replaced Atrial fibrillation Confirmed by Dora MENCHACA, SAMEAnisha Herndon (57) on 04/10/2025 10:52:37 AM Narrative Procedure Note Emi Menchaca MD - 04/10/2025 IMPRESSION: Marked sinus bradycardia with 1st degree A-V block Nonspecific T wave abnormality Abnormal ECG When compared with ECG of 10-APR-2025 07:21, Sinus rhythm has replaced Atrial fibrillation Confirmed by Dora MENCHACA, EMI Herndon (57) on 04/10/2025 10:52:37 AM Ten Eckert [...] noted. Plan: Continue anticoagulation and consider ablation. Tne Eckert MD Cardiac Electrophysiology eTn Eckert MD CV ELECTROPHYSIOLOGY PROCEDURES Final Result * Potassium (04/07/2025 11:14 AM EDT) Blood Venous blood specimen / Unknown Makenzie Bruner MD LAB BLOOD ORDERABLES Reema l Result * Magnesium (04/07/2025 11:14 AM EDT) Blood Venous blood specimen / Unknown Historical Provider LAB BLOOD ORDERABLES Reema jin Result * ECG 12 lead unit performed (03/21/2025 11:54 AM EDT) Ten Eckert MD ECG ORDERABLES Final Result from Last 3 Months Insurance MEDICARE Member Subscriber Plan / Payer ( fective 2015-Present) Name:Maikel Tomlin Member ID:[id number] Relation to Subscriber:Self Name:Maikel Tomlin Subscriber ID:[id number] Payer ID:[id number] Group ID:Not on file Type:Medicare Address: [facility] [place] [id number] GENERIC OTHER Care Teams Commercial Tire Service Technician Relationship Specialty Start Date End Date Patti Thomas MD [address] PCP - General 11/05/22
--- OUTSIDE RECORDS SUMMARY | 2025-04-24 08:40 | XMS_ITS | Encounter Summary ---
Author Organization [facility] Address [address] [place] [address] Care Team Providers Care Radiologic Technologist Mammogram Name Role Phone Patti Thomas MD Primary Care Provider [phone] Encounter Details Date Type Department Care Team (Late st Contact Info) Description 04/12/2025 Orders Only [place] [address] [place] [address] Provider, MD Makenzie [address] [place], [place] [phone] Social History Tobacco Use Types Packs/Day Years [...] Info) Description 05/15/2025 9:40 AM EDT Follow-Up [facility] [address] [place] [address] Kenn Koenig, GRAB JACK WORKER [address] [place] [address] documented as of this encounter Procedures Procedure Name Priority Date/Time Associated Diagnosis Comments ECG 12-LEAD Routine 04/07/2025 8:56 AM EDT documented in this encounter Results * ECG 12 lead (04/07/2025 8:56 AM EDT) us Historical Provider ECG ORDERABLES Final Res ult documented in this encounter Visit Diagnoses Not on filedocumented in this encounter Care Teams Radiologic Technologist Mammogram Relationship Specialty Start Date End Date Patti Thomas MD [address] PCP - General 11/05/22 documented as of this encounter
--- NOTE | 2025-04-24 09:08 | XR_ITS ---
[facility] [place] [id number] Patient Name: ALINE OROSCO MRN: [id number] date: 1950 Sex: M Assigned Patient Location: [facility] Current Patient Location: [facility] Accession/Order Number: [id number] Exam Date: 04/24/2025 09:22 Report Date: 04/24/2025 09:24 At the request of: PAT GONG Procedure: XR chest 2V PA AND LATERAL CHEST: CLINICAL HISTORY: Follow up left lower lobe pneumonia J18. COMPARISON: 03/18/2025 Left basilar parenchymal change on the prior has resolved. There is no new consolidation, effusion or pneumothorax. The cardiac, hilar and mediastinal silhouettes are within normal limits. There is no vascular congestion. The visualized bony thorax is intact. End plate spurring is present the spine. XR/XR chest 2V IMPRESSION: NO ACUTE CARDIOPULMONARY ABNORMALITY. Impression dictated by: Shilpi Quispe M.D. 04/24/2025 9:24 AM Dictation Location: [place] [address] Electronically authenticated by: [id number] Y Date: 04/24/2025 09:24
== END 2025-04-24 08:35 | disposition home or self-care (01) ==
PROVIDERS: PCP Internal Medicine; Visit Provider Internal Medicine
DX: J18.9 Pneumonia, unspecified organism (principal)
CPT/HCPCS: 71046

== ENCOUNTER 2025-05-22 08:47 | Outpatient (OUT) | payer MEDICARE, OTHER, SELFPAY ==
--- OUTSIDE RECORDS SUMMARY | 2024-06-15 07:00 | XMS_ITS | Encounter Summary ---
Author Name [facility] [facility] [place] Address [address] [place] [id number] Care Team Providers Care Police Officer Booking Name Role Phone PITA PATEL Primary Care Provider Unavailabl e Insurance Providers: All historical and current Section Date Range: From patient's date of to the date document was created. This section includes the names of all active insurance providers for the patient. Insurance Provider Type of Coverage Plan Name Start of Policy Coverage End of Policy Coverage Group Number Member ID Insurance Provider's Telephone Number Policy Cardoso's Name Patient's Relationship to Policy Cardoso MEDICARE (WNR) MEDICARE (M) PART B Oct 09, 2015 PART B [id number] Anisha OROSCO PATIENT MEDICARE (WNR) MEDICARE (M) PART A Oct 09, 2015 PART A [id number] Anisha OROSCO PATIENT MEDICARE (WNR) MEDICARE (M) PART A Oct 09, 2015 PART A [id number] Anisha OROSCO PATIENT MEDICARE (WNR) MEDICARE (M) PART B Oct 09, 2015 PART B [id number] Anisha OROSCO PATIENT Selected Encounter This section includes the information on record at [place] for the Encounter. Date/Time Encounter Type Encounter Description Reason Provider Source Jun 15, 2024 11:00 AM [facility] 6 OR MORE PODIATRY ICD-10-CM E11.42 Type 2 diabetes mellitus with diabetic polyneuropathy SHERYL VALE Rosalinda Encounter Template Text not used by [facility] Assessments - Encounter Diagnoses This section includes the primary and secondary diagnoses documented for the Encounter. Date/Time Primary/Secondary Diagnosis Diagnosis Name Provider Source Jun 15, 2024 12:06 PM PRIMARY Type 2 diabetes mellitus with diabetic polyneuropathy [facility] Jun 15, 2024 12:06 PM SECONDARY Corns and callosities KAVINSHERYL [facility] Jun 15, 2024 12:06 PM SECONDARY Onycholysis KAVINSHERYL Rosalinda [facility] Jun 15, 2024 12:06 PM SECONDARY Tinea unguium KAVIN,SHERYL Rosalinda [facility] Jun 15, 2024 12:06 PM SECONDARY Type 2 diabetes mellitus without complications [facility] Plan of Treatment: Future Appointments (+ 6 months) and Future Tests (+/- 45 days) The Plan of Treatment section includes future care activities for the [facility] [place] [facility] This section includes future appointments and future orders which are active, pending or scheduled. Future Appointments This section includes appointments that were scheduled to occur 6 months from the date of the Encounter, up to a maximum of 20 appointments. The data comes from all [place] treatment facilities. Appointment Date/Time Appointment Type Appointme nt Facility Name Jun 17, 2024 09:00 AM AMBULATORY - NONE [facility] Aug 29, 2024 01:00 PM AMBULATORY - NONE [facility] Aug 30, 2024 09:00 AM AMBULATORY - NONE [facility] Sep 05, 2024 09:00 AM AMBULATORY - NONE [facility] Sep 12, 2024 01:30 PM AMBULATORY - SURGERY [facility] Dec 12, 2024 01:30 PM AMBULATORY SURGERY [facility] Lab Results: +/- 30 days of the encounter This section includes the Chemistry and Hematology Lab Results on record with [place] for the patient. Radiology Reports and Pathology Reports are provided separately, in subsequent sections. Lab Results This section contains the Chemistry/Hematology Results that were resulted 30 days before or 30 daysafter the date of the Encounter. Date/Time Source Result Type Result - Unit Interpretation Reference Range Specimen Type Comment Jun 15, 2024 10:37 AM [facility] VITAMIN B12 PLASMA Specimen Type: PLASMA No comment entered. Ordering Provider: PITA RG Report Released Date/Time: Apr 12, 2024 12:18 PM Reporting Lab: [address] [address] Performing Lab: [address] [address] VITAMIN B12 545 pg/mL [phone] Jun 15, 2024 10:37 AM [facility] HEMOGLOBIN A1C BLOOD Specimen Type: B LOOD Comment: Values obtained from A1C measurements can vary. For typical A1C assays, a reported value of 7.0 could actually be between 6.72 and 7.28 if measured by a reference method. A reported value of 9.0 could actually be between 8.73 and 9.27. Ref: http://[email or web address]/[email or web address] Ordering Provider: PITA RG Report Released Date/Time: Apr 11, 2024 11:24 AM Reporting Lab: [address] [address] Performing Lab: [address] [address] HEMOGLOBIN A1C 6.7 H 3.6-5.7 Jun 15, 2024 10:37 AM [facility] BASIC METABOLIC PANEL PLASMA Specimen Type: PLASMA No comment entered. Ordering Provider: PITA RG Report Released Date/Time: Apr 11, 2024 11:24 AM Reporting Lab: [address] [address] Performing Lab: [address] [address] BUN 25 mg/dL H 9-23 CALCIUM 9.0 mg/dL 8.5-10.1 CREATININE 1.1 mg/dL 0.7-1.3 CO2 23 mmol/L 22-29 GLUCOSE 139 mg/dL H 74-100 SODIUM 140 mmol/L 136-145 CHLORIDE 109 mmol/L H 98-107 POTASSIUM 4.0 mmol/L 3.5-5.1 ANION GAP 12.0 10-20 EGFR (CALCULATED) 71.0 mL/min Social History: Smoking Status (Most current) and Tobacco Use (All prior to encounter date) This section includes the most current, and the historical, smoking and tobacco- related health factors from the [place] facility where the Encounter took place. Current Smoking Status This section includes the most current smoking, or tobacco-related health factor, from the [place] facility where the Encounter took place. Date/Time Current Smoking Status Comment Khang ity Aug 31, 2023 09:30 AM VA-TOBACCO NEVER USED [facility] Tobacco Use History This section includes a history of the smoking, or tobacco-related health factors, that were collected on or before the date of the Encounter. The data comes from the [place] facility where the Encounter took place. Date/Time Smoking Status/Tobacco Use Comment F acility Aug 27, 2022 08:00 AM VA-TOBACCO NEVER USED [facility] Aug 26, 2021 08:00 AM VA-TOBACCO NEVER USED [facility] Aug 23, 2018 10:16 AM VA-TOBACCO NEVER USED [facility] Aug 09, 2018 09:15 AM VA-TOBACCO NEVER USED [facility] Sep 01, 2016 01:40 PM LIFETIME NON-USER OF TOBACCO [facility] Encounter Notes: All associated encounter notes This section contains the clinical notes associated to the Encounter. Date/Time Encounter Note(s) Provider Source Jun 15, 2024 07:21 AM PODIATRY NURSING O UTPATIENT NOTE: LOCAL TITLE: PODIATRY [facility] NURSING NOTE (T) STANDARD TITLE: PODIATRY NURSING OUTPATIENT NOTE DATE OF NOTE: JUN 15, 2024@07:21 ENTRY DATE: JUN 15, 2024@07:21:34 AUTHOR: SHERYL VALE COSIGNER: URGENCY: STATUS: COMPLETED PODIATRY [facility] NURSING NOTE (T) Has ADDENDA SUBJECTIVE: 73 year old vet ambulated into the clinic unassisted. CHIEF COMPLAINT: Vet here for foot and toenail care. Vet is a diabetic, last A1c 6.9 on 02/15/24. Vet states his blood sugar this am was around 140. Vet denies any pain in his feet or ankles. Review Allergies Allergies reviewed and updated per protocol. ALLERGIES/ADVERSE REACTIONS Type: DRUG Date/Time Reactant Severity Reaction 08/26/2021 08:06 HCTZ HYDROCHLOROTH COLD SWEATS 09/01/2016 13:38 PENICILLIN UNKNOWN Type: OTHER Date/Time Reactant Severity Reaction 08/26/2021 08:05 ADHESIVE TAPE ERYTHEMA MEDICATION LIST REVIEW REPORT Patient states no change in documented OTC/Herbals at this visit. OBJECTIVE: VASCULAR: - DP/PT palpable b/l - CFT < 3 secs b/l - Skin temp from heels to toes warm to warm b/l DERMATOLOGIC: - Nails 2-5 b/l elongated,thickened and yellow. Nails 3,4 right foot and hallux on left foot dystrophic. Hallux nails b/l thickened, elongated and discolored. - Web spaces clean and dry b/l - Skin intact, no open lesions or cracking noted. two hyperkeratotic tissue noted medial side of right and left hallux. No edema, varicosities or hair noted. NEUROLOGIC: - Protective sensation intact 10/10 checked with [facility]. MUSCULOSKELETAL: - Muscle strength 5/5 in all four quadrants - ROM within normal range. - Partially reducible 2nd digit contracture b/l - Hallux abducted with prominent medial eminence noted right 1st ray - Reducible contracture lesser digits PAVE FOOT EXAM A foot risk level was completed. The following risk level was identified for this patient: +POD RISK SCORE+ --LEVEL 2 - (MODERATE RISK) Sensory loss and may have one additional finding below Diminished circulation Foot deformity -POD RISK SCORE- Patient currently being followed by Podiatry or other foot care provider. LEVEL 2 FOOT EDUCATION: 1. Advised patient that therapeutic footwear and orthosis are required to accommodate foot deformities, to compensate for soft tissue atrophy, and to evenly distribute plantar foot pressures. 2. Advised patient not to walk barefoot. Instructed the patient to pay close attention to the style and fit of shoes. 3. Explained the importance of daily foot checks. Explained that loss of sensation leads to callouses. Callouses break down, which result in ulcers that may lead to gangrene and amputation. 4. Stressed the importance of daily foot hygiene. Warm (not hot) bathing of the feet, complete drying and thorough inspection for changes in the condition of the skin constitute daily foot care. Demonstrated how to do a thorough foot check. 5. Emphasized the use of clean, non-restrictive socks/stockings and well fitting shoes. 6. Stressed the importance of immediate follow-up of any foot injuries or ulcers. Explained that he/she should be non-weight bearing whenever there are lesions on the foot, to prevent cellular damage. Level of Understanding: Good Patient/Caregiver having difficulty examining feet No Patient/caregiver has difficulty cleansing feet No Patient walks barefoot Never Instructed on the importance of not walking barefoot OBSERVATIONS: After reviewing the H&P and clinical findings, the Dr. Gonzalez made the diagnosis of: Diabetes Mellitus with neuropathy, onychomycosis, anticoagulation therapy, onychoylsis (3), hyperkeratotic (2) PLAN: Dr. Gonzalez examined the patient, was consulted, and directed care of this patient. Treatment today consisted of: - 10 Nails debrided and dremeled without incident. - Nails 3,4 on right foot and hallux on left foot debrided to point of attachement without incident. - Dremeled two hyperkeratotic tissues, medial side of right hallux and medial side of left hallux without incident. - Reviewed diabetic foot education with vet - RTC in 3 months with podiatry nursing clinic /paulo/ SHERYL VALE LICENSED PRACTICAL NURSE Signed: 06/15/2024 12:06 Receipt Acknowledged By: 06/15/2024 12:10 /wilton GONZALEZ [employer] FORMULATOR 06/15/2024 ADDENDUM STATUS: COMPLETED Agree with above assessment and treatment /wilton GONZALEZ [employer] MAK[employer] FORMULATOR Signed: 06/15/2024 12:10 [facility]
--- OUTSIDE RECORDS SUMMARY | 2024-08-30 11:22 | XMS_ITS | Encounter Summary ---
Author Name [facility] [place] Organization [facility] [place] [place] Address [address] [place] [id number] Care Team Providers Care Director Of Reimbursement Name Role Phone PITA PATEL Primary Care [...] Policy [facility] MEDICARE (WNR) MEDICARE (M) PART A Oct 09, 2015 PART A [id number] Anisha OROSCO PATIENT MEDICARE (WNR) MEDICARE (M) PART B Oct 09, 2015 PART B [id number] Anisha OROSCO PATIENT MEDICARE (WNR) MEDICARE (M) PART A Oct 09, 2015 PART A [id number] Anisha OROSCO PATIENT MEDICARE (WNR) MEDICARE (M) PART B Oct 09, 2015 PART B [id number] Anisha OROSCO PATIENT Selected Encounter This section includes the information on record at CT for the Encounter. Date/Time Encounter Type Encounter Description Reason Provider Source Aug 30, 2024 03:22 PM QNHP OL DIG ASSMT&MGMT 5-10 CLINICAL PHARMACY ICD-10-CM Z51.81 Encounter for therapeutic drug level monitoring MARIBEL GRADY [facility] Encounter Template Text not used by CT Assessments - Encounter Diagnoses This section includes the primary and secondary diagnoses documented for the Encounter. 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 This section includes future appointments and future orders which are active, pending or scheduled. Future Appointments This section includes appointments that were scheduled to occur 6 months from the date of the Encounter, up to a maximum of 20 appointments. The data comes from all CT treatment facilities. Appointment Date/Time Appointment Type Appointme nt Facility Name Sep 05, 2024 09:00 AM AMBULATORY - NONE [facility] Sep 12, 2024 01:30 PM AMBULATORY SURGERY [facility] Dec 12, 2024 01:30 PM [facility] SURGERY [facility] Feb 27, 2025 09:00 AM [facility] Lab Results: +/- 30 days of the encounter This section includes the Chemistry and Hematology Lab Results on record with CT for the patient. Radiology Reports and Pathology Reports are provided separately, in subsequent sections. Lab Results This section contains the Chemistry/Hematology Results that were resulted 30 days before or 30 daysafter the date of the Encounter. Date/Time Source Result Type Result - Unit Interpretation Reference Range Specimen Type Comment Aug 29, 2024 01:07 PM [facility] CREATININE (W EGFR) PLASMA Specimen Type: PLASMA Comment: DLDLREF RANGE: NEAR OR ABOVE OPTIMAL: 100-129 mg/dL BORDERLINE DLDLHIGH: 130-159 mg/dL HIGH: 160-189 mg/dL VERY HIGH: >=190 TRIG REF RANGE: BORDERLINE HIGH: 150-199 mg/dL HIGH: 200-499 mg/dL TRIG VERY HIGH: >=500 mg/dL CREA eGFR was calculated using the CKD-EPI 2020 equation. CHOL REF RANGE: BORDERLINE HIGH: 200-239 mg/dL HIGH: >=240 mg/dL Ordering Provider: ENA PALACIOS Report Released Date/Time: Feb 16, 2024 02:04 PM Reporting Lab: [address] [id number] Performing Lab: [place] [id number] CREATININE 1.2 mg/dL 0.72-1.25 EGFR (CALCULATED) 64.0 mL/min Aug 29, 2024 01:07 PM [facility] HEPATIC FUNCTION PANEL PLASMA Specimen Type: PLASMA Comment: DLDLREF RANGE: NEAR OR ABOVE OPTIMAL: 100-129 mg/dL BORDERLINE DLDLHIGH: 130-159 mg/dL HIGH: 160-189 mg/dL VERY HIGH: >=190 TRIG REF RANGE: BORDERLINE HIGH: 150-199 mg/dL HIGH: 200-499 mg/dL TRIG VERY HIGH: >=500 mg/dL CREA eGFR was calculated using the CKD-EPI 2020 equation. CHOL REF RANGE: BORDERLINE HIGH: 200-239 mg/dL HIGH: >=240 mg/dL Ordering Provider: ENA PALACIOS Report Released Date/Time: Feb 16, 2024 02:04 PM Reporting Lab: [address] [phone] Performing Lab: [place] [id number] ALBUMIN 4.0 g/dL 3.2-4.6 ALKALINE PHOSPHATASE 80 U/L 40-150 ALT/SGPT 26 U/L <55 AST/SGOT 26 U/L 5-34 BILIRUBIN,DIRECT 0.4 mg/dL <0.5 PROTEIN, TOTAL 6.3 g/dL L 6.4-8.3 BILIRUBIN, TOTAL 1.1 mg/dL 0.2-1.2 Aug 29, 2024 01:07 PM [facility] CBC BLOOD Specimen Type: BLOOD No comment entered. Ordering Provider: ENA PALACIOS Report Released Date/Time: Feb 16, 2024 02:04 PM Reporting Lab: [address] [address] Performing Lab: [place] [phone] WBC COUNT 6.7 10*3/uL 3.6-11.0 RBC COUNT 4.45 10*6/uL L 4.47-5.83 HGB 14.0 g/dL 13.6-17.4 HCT 41.9 40.0-51.0 MCV 94.0 fL 80.0-96.0 MCH 31.4 pg H 27.0-31.0 MCHC 33.4 g/dL 31.5-36.5 PLT 185 10*3/uL 150-400 LYMPHS % 25.3 21.0-51.0 MONOCYTES % 11.1 H 4.0-8.0 NUCLEATED RBC/100WBC 0.2 /100{WBCs} RDW 12.7 11.2-15.8 NEUTROPHIL % 61.7 54.0-78.0 EOSINOPHIL % 1.3 0.0-3.0 BASOPHIL % 0.6 0.0-3.0 ABSOLUTE LYMPHOCYTE COUNT 1.7 10*3/uL 0. 8-5.0 ABSOLUTE NEUTROPHIL COUNT 4.1 10*3/uL 1. 9-8.6 ABSOLUTE BASOPHIL COUNT 0.0 10*3/uL 0.0- 0.3 ABSOLUTE MONOCYTE COUNT 0.7 10*3/uL 0.1- 0.9 ABSOLUTE EOSINOPHIL COUNT 0.1 10*3/uL 0. 0-0.3 MPV 9.4 fL 7.4-11.4 Aug 29, 2024 01:07 PM [facility] LIPID PROFILE PLASMA Specimen Type: Aurora LYON Comment: DLDLREF RANGE: NEAR OR ABOVE OPTIMAL: 100-129 mg/dL BORDERLINE DLDLHIGH: 130-159 mg/dL HIGH: 160-189 mg/dL VERY HIGH: >=190 TRIG REF RANGE: BORDERLINE HIGH: 150-199 mg/dL HIGH: 200-499 mg/dL TRIG VERY HIGH: >=500 mg/dL CREA eGFR was calculated using the CKD-EPI 2020 equation. CHOL REF RANGE: BORDERLINE HIGH: 200-239 mg/dL HIGH: >=240 mg/dL Ordering Provider: PITA PATEL Report Released Date/Time: Aug 29, 2024 01:07 PM Reporting Lab: [address] [phone] Performing Lab: [address] [phone] CHOLESTEROL 135 mg/dL <199 LDL CHOLESTEROL 91 mg/dL <99 HDL CHOLESTEROL 35 mg/dL L >60 TRIGLYCERIDE 57 mg/dL <149 Aug 29, 2024 01:07 PM [facility] PROSTATE SPECIFIC ANTIGEN SERUM Speci men Type: SERUM No comment entered. Ordering Provider: PITA PATEL Report Released Date/Time: Aug 29, 2024 01:07 PM Reporting Lab: [address] [phone] Performing Lab: [place] [phone] PROSTATE SPECIFIC ANTIGEN 4.35 ng/mL H <4. 00 Aug 29, 2024 01:07 PM [facility] TSH PLASMA Specimen Type: PLASMA Comment: DLDLREF RANGE: NEAR OR ABOVE OPTIMAL: 100-129 mg/dL BORDERLINE DLDLHIGH: 130-159 mg/dL HIGH: 160-189 mg/dL VERY HIGH: >=190 TRIG REF RANGE: BORDERLINE HIGH: 150-199 mg/dL HIGH: 200-499 mg/dL TRIG VERY HIGH: >=500 mg/dL CREA eGFR was calculated using the CKD-EPI 2020 equation. CHOL REF RANGE: BORDERLINE HIGH: 200-239 mg/dL HIGH: >=240 mg/dL Ordering Provider: PITA PATEL Report Released Date/Time: Aug 29, 2024 01:07 PM Reporting Lab: [address] [phone] Performing Lab: [place] [phone] TSH 1.007 u[IU]/mL 0.360-4.500 Encounter Notes: All associated encounter notes This section contains the clinical notes associated to the Encounter. Date/Time Encounter Note(s) Provider Source Aug 30, 2024 03:35 PM PHARMACY LETTERS: LOCAL TITLE: ANTICOAGULATION PATIENT LETTER STANDARD TITLE: PHARMACY LETTERS DATE OF NOTE: AUG 30, 2024@15:35 ENTRY DATE: AUG 30, 2024@15:35:17 AUTHOR: CARLO FARAH COSIGNER: URGENCY: STATUS: COMPLETED [facility] [address] [place] [address] Aug ALINE OROSCO [address] [place], [place] [address] Dear ALINE OROSCO, Your labs for your anticoagulation medication were consistent or similar to results in the past. Please continue your medication as directed by the [facility] Anticoagulation Clinic. This dosage should be: Apixaban 5 mg - One tablet TWICE A DAY If you are having any dizziness, headaches, vision problems, chest pain or bleeding of any kind, or have had any recent changes or new medications or are having any upcoming procedures, questions or concerns, please contact the anticoagulation clinic at [facility] at [phone], ext. [phone]. Remember to keep up with the refills of this medication as this medicine is very sensitive and you should not miss a dose. If you have blood drawn at one of [facility] Out[facility] Clinics ([facility]'s), please call that facility to schedule an appointment for bloodwork. If you need to reschedule, please call the Anticoagulation Clinic. Your next appointment to have labs drawn will be on Feb. This appointment is a REMINDER to complete your bloodwork for our clinic at your local [place]. If you have blood drawn at one of [facility] Outpatient Clinics ([facility]'s), please call that facility to schedule a LAB appointment time. If you need to reschedule, please call the Anticoagulation Clinic. The Anticoagulation clinic will continue to monitor your bloodwork. In order to minimize the number of lab draws for you, the lab work from your primary care provider or other providers will be reviewed for safely continuing your anticoagulation medication. Please get your bloodwork drawn as scheduled by your other providers, if any additional blood work is needed, the anticoagulation clinic will contact you. The anticoagulation clinic will renew the medication when it expires or becomes due for a renewal. Thank you, Anticoagulation Clinic CARLO FARAH [facility] Aug 30, 2024 03:22 PM PHARMACY E & M OF ANTICOAGULATION NOTE: LOCAL TITLE: ANTICOAGULATION NOTE (T) STANDARD TITLE: PHARMACY E & M OF ANTICOAGULATION NOTE DATE OF NOTE: AUG 30, 2024@15:22 ENTRY DATE: AUG 30, 2024@15:22:31 AUTHOR: CARLO FARAH EXP COSIGNER: MARIBEL GRADY URGENCY: STATUS: COMPLETED Today's date: Aug PRIMARY CLINIC: [facility] DRAWN AT : [place] REASON FOR VISIT: SKILLED NURSING ANTICOAGULATION FOR ATRIAL FIBRILLATION - CHRONIC (427.31) PERTINENT DATA: Pt is on Apixaban for NVAF START/END: 08/28/2022 - DURATION OF TREATMENT: Lifelong Estimated CLcr (Actual Body Weight): Est. CRCL 89.4 mL/min10/21/24 Age: 73 Measurement DT WEIGHT LB(KG)[BMI] 08/31/2023 09:19 254(115.21)[32*] 08/27/2022 07:50 253(114.76)[32*] 08/26/2021 08:10 238(107.95)[30*] 08/24/2019 09:41 252.3(114.44)[32*] 08/24/2019 09:38 252.3(114.44)[32*] 08/23/2018 10:04 262.9(119.25)[33*] WBC 6.7 (08/29/24 13:07) BLOOD RBC 4.45 (08/29/24 13:07) BLOOD HGB 14.0 (08/29/24 13:07) BLOOD HCT 41.9 (08/29/24 13:07) BLOOD MCV 94.0 (08/29/24 13:07) BLOOD MCH 31.4 (08/29/24 13:07) BLOOD MCHC 33.4 (08/29/24 13:07) BLOOD RDW 12.7 (08/29/24 13:07) BLOOD PLT 185 (08/29/24 13:07) BLOOD LYMPHS% 25.3 (08/29/24 13:07) BLOOD MONOS 11.1 (08/29/24 13:07) BLOOD NRBC 0.2 (08/29/24 13:07) BLOOD MPV 9.4 (08/29/24 13:07) BLOOD NEUT. % 61.7 (08/29/24 13:07) BLOOD EOSINOPHIL 1.3 (08/29/24 13:07) BLOOD BA% 0.6 (08/29/24 13:07) BLOOD LY # 1.7 (08/29/24 13:07) BLOOD NEUTRO# 4.1 (08/29/24 13:07) BLOOD BASO # 0.0 (08/29/24 13:07) BLOOD MONO # 0.7 (08/29/24 13:07) BLOOD EOSINO# 0.1 (08/29/24 13:07) BLOOD ALBUMIN: 4.0 (08/29/24 13:07) PLASMA ALKPHOS: 80 (08/29/24 13:07) PLASMA ALT/SGPT: 26 (08/29/24 13:07) PLASMA AST/SGOT: 26 (08/29/24 13:07) PLASMA BILI DIR: 0.4 (08/29/24 13:07) PLASMA BILI T: 1.1 (08/29/24 13:07) PLASMA T PROTEIN:6.3 (08/29/24 13:07) PLASMA Collection DT Specimen Test Name Result Units Ref Range 08/29/2024 13:07 PLASMA CREATININE 1.2 mg/dL 0.72 - 1.25 Comment: DLDLREF RANGE: NEAR OR ABOVE OPTIMAL: 100-129 mg/dL BORDERLINE Comment: DLDLHIGH: 130-159 mg/dL HIGH: 160-189 mg/dL VERY HIGH: >=190 Comment: TRIG REF RANGE: BORDERLINE HIGH: 150-199 mg/dL HIGH: 200-499 mg/dL Comment: TRIG VERY HIGH: >=500 mg/dL Comment: CREA eGFR was calculated using the CKD-EPI 2020 equation. Comment: CHOL REF RANGE: BORDERLINE HIGH: 200-239 mg/dL HIGH: >=240 mg/dL Active Outpatient Medications (including Supplies): Active Outpatient Medications Status 1) APIXABAN 5MG TAB TAKE ONE TABLET BY MOUTH TWICE A DAY ACTIVE DIRECTED BY [facility] ([phone]) 2) EMPAGLIFLOZIN 25MG TAB TAKE ONE-HALF TABLET BY MOUTH ACTIVE EVERY DAY FOR TYPE 2 DIABETES MELLITUS Active Non-VA Medications Status 1) Non-VA AMLODIPINE BESYLATE 10MG TAB 10MG MOUTH EVERY ACTIVE DAY 2) Non-VA FOSINOPRIL NA 40MG TAB 40MG MOUTH EVERY DAY ACTIVE 3) Non-VA METFORMIN HCL 500MG TAB 500MG MOUTH WITH ACTIVE DINNER 4) Non-VA METOPROLOL SUCCINATE 50MG SA TAB 50MG MOUTH ACTIVE EVERY DAY 5) Non-VA OMEPRAZOLE 20MG EC CAP 20MG MOUTH EVERY ACTIVE MORNING, ON AN EMPTY STOMACH 6) Non-VA POTASSIUM CL 20MEQ SA TAB (DISPERSIBLE) 20MEQ ACTIVE MOUTH THREE TIMES A DAY 7) Non-VA SIMVASTATIN 40MG TAB 40MG MOUTH AT BEDTIME ACTIVE 9 Total Medications Bleeding: No Thromboembolic Symptoms: No Falls/Accidents: No Comments: Hgb/Hct similar to previous results and renal/hepatic function supports current anticoagulation dose of apixaban 5mg twice daily. Plan to continue current direct oral anticoagulant therapy. Patient last filled medication on 07/12 for a 90 day supply and lab orders placed for RTC date. Refill sent. ---- CBC ---- BLOOD Aug 29 Feb 14 Aug 13 Feb 25 Reference 2023 2023 2022 2022 13:07 07:52 07:54 08:46 Units Ranges HGB 14.0 13.3 L 13.2 L 13.7 g/dL 13.6 - 17.4 HCT 41.9 38.9 L 39.0 L 41.0 % 40 - 51 ---- CHEM PROFILE ---- PLASMA Aug 29 Jun 15 Mar 03 Feb 14 Reference 2023 2023 2023 2023 13:07 10:37 09:10 07:52 Units Ranges CREAT 1.2 1.1 1.4 H 1.8 H mg/dL .7 - 1.3 AST/SGOT 26 U/L 0 - 33.9 ALT/SGPT 26 U/L 10 - 45 ALK PHOS 80 U/L 46 - 116 Feb Next blood test (CBC/SCr) Monitoring will be continued by the anticoagulation using primary care or other provider's labs, anticoagulation clinic will order any additional labs as deemed necessary. Orders placed. MEDICATION RECONCILIATION Patient/Caregiver unable to participate in medication reconciliation at this time Chart was reviewed. Letter sent to patient. DECISIONS ON DOSAGE AND FOLLOW-UP MADE BY: Dr. Maribel Grady Time spent on encounter = 10 minutes /paulo/ MARIBEL GRADY [facility] DIRECTOR Signed: 08/30/2024 19:57 for CARLO FARAH FIBER DRIER OPERATOR /[place] GRADY CLINICAL HOSPICE DIRECTOR Cosigned: 08/30/2024 19:57 MARIBEL GRADY [facility]
--- OUTSIDE RECORDS SUMMARY | 2024-09-05 05:00 | XMS_ITS | Encounter Summary ---
Author Name [facility] ([place]) Organization [facility] ([place]) Address [address] [place] [address] Care Team Providers Care Geospatial Technologist Name Role Phone PITA PATEL Primary Care [...] PART B Oct 09, 2015 PART B [id number] [phone] Anisha OROSCO PATIENT MEDICARE (WNR) MEDICARE (M) PART A Oct 09, 2015 PART A [id number] Anisha OROSCO PATIENT MEDICARE (WNR) MEDICARE (M) PART A Oct 09, 2015 PART A [id number] Anisha OROSCO PATIENT MEDICARE (WNR) MEDICARE (M) PART B Oct 09, 2015 PART B [id number] Anisha OROSCO PATIENT Selected Encounter This section includes the information on record at [place] for the Encounter. Date/Time Encounter Type Encounter Description Reason Provider Source Sep 05, 2024 09:00 AM OFFICE O/P EST MOD 30 MIN PRIMARY CARE/MEDICINE ICD-10-CM I48.91 Unspecified atrial fibrillation SONIA PATEL IHE Encounter Template Text not used by [place] Assessments - Encounter Diagnoses This section includes the primary and secondary diagnoses documented for the Encounter. Date/Time Primary/Secondary Diagnosis Diagnosis Name Provider Source Sep 05, 2024 01:06 PM PRIMARY Unspecified atrial fibrillation PITA PATEL [facility] Sep 05, 2024 01:06 PM SECONDARY Essential (primary) hypertension [facility] Sep 05, 2024 01:06 PM SECONDARY Hyperlipidemia, unspecified [facility] PAT[facility] Sep 05, 2024 01:06 PM SECONDARY Hypokalemia PITA PATEL [facility] Sep 05, 2024 01:06 PM SECONDARY Sleep apnea, unspecified PITA PATEL [facility] Sep 05, 2024 01:06 PM SECONDARY Type 2 diabetes mellitus without complications PITA PATEL [facility] Plan of Treatment: Future Appointments (+ 6 months) and Future Tests (+/- 45 days) The Plan of Treatment section includes future care activities for the patient from all [facility] This section includes future appointments and future orders which are active, pending or scheduled. Future Appointments This section includes appointments that were scheduled to occur 6 months from the date of the Encounter, up to a maximum of 20 appointments. The data comes from all [place] treatment facilities. Appointment Date/Time Appointment Type Appointme nt Facility Name Sep 12, 2024 01:30 PM [facility]ATORY - [facility] Dec 12, 2024 01:30 PM [facility]ORY - [facility] Feb 27, 2025 09:00 AM AMBULATORY - [facility] Lab Results: +/- 30 days of the encounter This section includes the Chemistry and Hematology Lab Results on record with [place] for the patient. Radiology Reports and Pathology Reports are provided separately, in subsequent sections. Lab Results This section contains the Chemistry/Hematology Results that were resulted 30 days before or 30 daysafter the date of the Encounter. Date/Time Source Result Type Result - Unit Interpretation Reference Range Specimen Type Comment Aug 29, 2024 01:07 PM [facility] CREATININE (W EGFR) PLASMA Specimen Type: PLASMA [...] Feb 16, 2024 02:04 PM Reporting Lab: [address] [address] Performing Lab: [place] [id number] CREATININE 1.2 mg/dL 0.72-1.25 EGFR (CALCULATED) 64.0 mL/min Aug 29, 2024 01:07 PM [facility] HEPATIC FUNCTION PANEL PLASMA Specimen Type: PLASMA [...] Feb 16, 2024 02:04 PM Reporting Lab: [address] [address] Performing Lab: [address] [address] ALBUMIN 4.0 g/dL 3.2-4.6 ALKALINE PHOSPHATASE 80 U/L 40-150 ALT/SGPT 26 U/L <55 AST/SGOT 26 U/L 5-34 BILIRUBIN,DIRECT 0.4 mg/dL <0.5 PROTEIN, TOTAL 6.3 g/dL L 6.4-8.3 BILIRUBIN, TOTAL 1.1 mg/dL 0.2-1.2 Aug 29, 2024 01:07 PM [facility] CBC BLOOD Specimen Type: BLOOD No comment entered. Ordering Provider: ENA PALACIOS Report Released Date/Time: Feb 16, 2024 02:04 PM Reporting Lab: [facility] [id number] [facility] [address] Performing Lab: [facility] [id number] [place] [id number] WBC COUNT 6.7 10*3/uL 3.6-11.0 RBC COUNT [...] fL 7.4-11.4 Aug 29, 2024 01:07 PM [facility] LIPID PROFILE PLASMA Specimen Type: P LASMA Comment: DLDLREF RANGE: NEAR OR ABOVE OPTIMAL: [...] Aug 29, 2024 01:07 PM Reporting Lab: [address] [address] Performing Lab: [address] [address] CHOLESTEROL 135 mg/dL <199 LDL CHOLESTEROL 91 mg/dL <99 HDL CHOLESTEROL 35 mg/dL L >60 TRIGLYCERIDE 57 mg/dL <149 Aug 29, 2024 01:07 PM [facility] TSH PLASMA Specimen Type: PLASMA Comment: DLDLREF [...] Aug 29, 2024 01:07 PM Reporting Lab: [address] [address] Performing Lab: [address] [address] TSH 1.007 u[IU]/mL 0.360-4.500 Aug 29, 2024 01:07 PM [facility] PROSTATE SPECIFIC ANTIGEN SERUM Speci men Type: SERUM No comment entered. Ordering Provider: PITA PATEL Report Released Date/Time: Aug 29, 2024 01:07 PM Reporting Lab: [address] [address] Performing Lab: [address] [address] PROSTATE SPECIFIC ANTIGEN 4.35 ng/mL H <4. 00 Social History: Smoking Status (Most current) and Tobacco Use (All prior to encounter date) This section includes the most current, and the historical, smoking and tobacco- related health factors from the [place] facility where the Encounter took place. Current Smoking Status This section includes the most current smoking, or tobacco-related health factor, from the [place] facility where the Encounter took place. Date/Time Current Smoking Status Comment Khang mejias Sep 05, 2024 09:00 AM NE-TOBACCO NEVER USED [facility] Tobacco Use History This section includes a history of the smoking, or tobacco-related health factors, that were collected on or before the date of the Encounter. The data comes from the [place] facility where the Encounter took place. Date/Time Smoking Status/Tobacco Use Comment F acility Aug 31, 2023 09:30 AM [facility]-TOBACCO NEVER USED [facility] Aug 27, 2022 08:00 AM VA-TOBACCO NEVER [...] the Encounter. Date/Time Encounter Note(s) Provider Source Sep 05, 2024 09:07 AM INTERNAL MEDICINE OUTPATIENT NOTE: LOCAL TITLE: PRIMARY CARE OUTPATIENT NOTE (T) STANDARD TITLE: INTERNAL MEDICINE OUTPATIENT NOTE DATE OF NOTE: SEP 05, 2024@09:07 ENTRY DATE: SEP 05, 2024@09:07:57 AUTHOR: PITA PATEL EXP COSIGNER: URGENCY: STATUS: COMPLETED In-person Note 73yo [place] Reason for Visit: Here for follow up visit. States he is feeling good. He follows with outside providers. 12 Active Problems PROBLEM LAST MOD PROVIDER Exposure to potentially hazardous substance 03/02/2024 NATHAN OLSON AF - Atrial fibrillation 08/26/2021 PITA PATEL Kidney stone 08/26/2021 PITA PATEL Acquired hammer toe of left foot 09/08/2019 MILLI GONZALEZ Sensorineural hearing loss, bilateral 03/09/2017 VAISHALI GUERIN Diabetic peripheral neuropathy associated with 09/12/2016 MILLI GONZALEZ type 2 diabetes mellitus Onychomycosis of toenails 09/12/2016 MILLI GONZALEZ Callosity 09/12/2016 MILLI GONZALEZ Benign essential hypertension 09/01/2016 MARTY GONG Diabetes mellitus 09/01/2016 MARTY GONG Hyperlipidemia 09/01/2016 MARTY GONG Hypokalemia 09/01/2016 MARTY GONG REVIEW OF SYSTEMS: (denies the following unless indicated otherwise): mood concerns headache fatigue/weight loss dysphagia/hoarseness chest pain dyspnea abdominal pain difficult or bloody elimination PATIENT ALLERGIES DETAILED ALLERGIES/ADVERSE REACTIONS Type: DRUG Date/Time Reactant Severity Reaction 08/26/2021 08:06 HCTZ HYDROCHLOROTH COLD SWEATS 09/01/2016 13:38 PENICILLIN UNKNOWN Type: OTHER Date/Time Reactant Severity Reaction 08/26/2021 08:05 ADHESIVE TAPE ERYTHEMA AMRS - MEDS (REC SUCCINCT) Active and Recently Inpatient, Outpatient and Clinic Medications (including Supplies): Active Outpatient Medications Status ========= 1) APIXABAN 5MG TAB TAKE ONE TABLET BY MOUTH TWICE A DAY ACTIVE (S) DIRECTED BY THE [facility] ([phone] [id number]) 2) EMPAGLIFLOZIN 25MG TAB TAKE ONE-HALF TABLET BY MOUTH ACTIVE EVERY DAY FOR TYPE 2 DIABETES MELLITUS Inactive Outpatient Medications Status ========= 1) TABLET CUTTER USE THIS SUPPLY ITEM DIRECTED FOR SPLITTING TABLETS Active Non-VA Medications Status ========= 1) Non-VA AMLODIPINE BESYLATE 10MG TAB 10MG [...] 40MG TAB 40MG MOUTH AT BEDTIME ACTIVE 10 Total Medications Report Released Date/Time: Aug 29, 2024@18:33 Provider: PITA PATEL Specimen: SERUM. [facility] [id number] Specimen Collection Date: Aug 29, 2024@13:07 Test name Result units Ref. range Site Code PROSTATE SPECIFIC ANTIGEN 4.35 H ng/mL Ref: <=4.00 [541] Report Released Date/Time: Aug 29, 2024@17:41 Provider: ENA PALACIOS Specimen: BLOOD. [facility] [id number] Specimen Collection Date: Aug 29, 2024@13:07 Test name Result units Ref. range Site Code WBC COUNT 6.7 K/cmm 3.6 - 11.0 [541] RBC COUNT 4.45 L M/cmm 4.47 - 5.83 [541] HGB 14.0 g/dL 13.6 - 17.4 [541] HCT 41.9 % 40.0 - 51.0 [541] MCV 94.0 fL 80.0 - 96.0 [541] MCH 31.4 H pg 27.0 - 31.0 [541] MCHC 33.4 g/dL 31.5 - 36.5 [541] RDW 12.7 % 11.2 - 15.8 [541] PLT 185 K/cmm 150 - 400 [541] MPV 9.4 fL 7.4 - 11.4 [541] NEUTROPHIL % 61.7 % 54.0 - 78.0 [541] LYMPHS % 25.3 % 21.0 - 51.0 [541] MONOCYTES % 11.1 H % 4.0 - 8.0 [541] EOSINOPHIL % 1.3 % 0.0 - 3.0 [541] BASOPHIL % 0.6 % 0.0 - 3.0 [541] ABSOLUTE NEUTROPHIL COUNT 4.1 K/cmm 1.9 - 8.6 [541] ABSOLUTE LYMPHOCYTE COUNT 1.7 K/cmm 0.8 - 5.0 [541] ABSOLUTE MONOCYTE COUNT 0.7 K/cmm 0.1 - 0.9 [541] ABSOLUTE EOSINOPHIL COUNT 0.1 K/cmm 0.0 - 0.3 [541] ABSOLUTE BASOPHIL COUNT 0.0 K/cmm 0.0 - 0.3 [541] NUCLEATED RBC/100WBC 0.2 /100 WBC None Established - None Established [541] Report Released Date/Time: Aug 29, 2024@18:50 Provider: ENA PALACIOS Specimen: PLASMA. [facility] [id number] Specimen Collection Date: Aug 29, 2024@13:07 Test name Result units Ref. range Site Code CREATININE 1.2 mg/dL 0.72 - 1.25 [541] Eval: REFERENCE RANGES CHANGED FOR CREAT ON 08.07.24 EGFR (CALCULATED) 64.0 mL/min [541] Eval: eGFR results >60 are imprecise. Many variables affect the calculated Eval: result. Interpretation of eGFR results >60 must be monitored Eval: over time. AST/SGOT 26 U/L 5 - 34 [541] Eval: REFERENCE RANGE CHANGED FOR AST ON 06.03.24 ALT/SGPT 26 U/L Ref: <=55 [541] Eval: REFERENCE RANGE CHANGED FOR ALT ON 06.03.24 ALKALINE PHOSPHATASE 80 U/L 40 - 150 [541] BILIRUBIN, TOTAL 1.1 mg/dL 0.2 - 1.2 [541] Eval: REFERENCE RANGE CHANGED FOR TBIL ON 7.10.24 BILIRUBIN,DIRECT 0.4 mg/dL Ref: <=0.5 [541] PROTEIN, TOTAL 6.3 L g/dL 6.4 - 8.3 [541] ALBUMIN 4.0 g/dL 3.2 - 4.6 [541] CHOLESTEROL 135 mg/dL Ref: <=199 [541] LDL CHOLESTEROL 91 mg/dL Ref: <=99 [541] HDL CHOLESTEROL 35 L mg/dL Ref: >=60 [541] TRIGLYCERIDE 57 mg/dL Ref: <=149 [541] TSH 1.007 uIU/mL 0.360 - 4.500 [541] Comment: DLDLREF RANGE: NEAR OR ABOVE OPTIMAL: 100-129 mg/dL BORDERLINE DLDLHIGH: 130-159 mg/dL HIGH: 160-189 mg/dL VERY HIGH: >=190 TRIG REF RANGE: BORDERLINE HIGH: 150-199 mg/dL HIGH: 200-499 mg/dL TRIG VERY HIGH: >=500 mg/dL CREA eGFR was calculated using the CKD-EPI 2020 equation. CHOL REF RANGE: BORDERLINE HIGH: 200-239 mg/dL HIGH: >=240 mg/dL PHYSICAL EXAM: Vital Signs: T: 97.4 F [36.3 C] (09/05/2024 08:54) P: 66 (09/05/2024 08:54) R: 16 (09/05/2024 08:54) BP: 136/88 (09/05/2024 08:54) Pain: 0 (09/05/2024 08:54) Height: 75 in [190.5 cm] (08/24/2019 09:38) Weight: 248 lb [112.49 kg] (09/05/2024 08:54) Pulse Ox: 98% (09/05/2024 08:54) General: appears well Head, Ears, Eyes, Nose, and Throat: Neck: Chest/Lungs: CTA Cardiovascular: RRR Gastrointestinal: Extremities: no edema ASSESSMENT/PLAN: reviewed labs with DM- sugars at goal with A1C 6.7%- taking once a day metformin and empagloflozin HTN- HTN- BP at goal, continue meds Atrial fib- stable, taking apixiban daily HLD- LDL at 91, not quite at goal, taking simvistatin from outside provider at a dose he can tolerate Potassium has been stable with three times a day KCL per civilian provider using CPAP nightly with good results HEALTH MAINTENANCE/CLINICAL REMINDERS: last colonoscopy done through civilian PCP Clinical Reminders Activity Avg Risk Colorectal Cancer Screen: AVERAGE RISK colorectal cancer screening is due based on information available to this clinical reminder Prior/outside colonoscopy results: polyps removed Date: November 06, 2022 Colonoscopy reminder set 3 years from SEP 05, 2024. Comments (optional): October 2027 Clinical Reminders Activity Assess Statin Use - Lipids (CVD/DM): The patient is currently on a moderate or high dose statin. MEDICATION RECONCILIATION Medication Reconciliation report reviewed and discussed with patient/caregiver. VA prescription medications, non-VA prescription medications, OTC and herbal medications reviewed: Patient/caregiver verifies that the list is complete and accurate and voices understanding. Patient/caregiver in possession of printed medication list. FOLLOW-UP: 1 year I am the Staff Provider. TOTAL TIME SPENT: Spent 30 minutes in care of this patient today including review of records, exam, and placing orders. /paulo/ PITA PATEL NURSE PRACTITIONER Signed: 09/05/2024 13:07 PITA PATEL [facility] Sep 05, 2024 08:49 AM PRIMARY CARE NURSI NOTE: LOCAL TITLE: OUTPATIENT NURSING INTAKE NOTE (T) STANDARD TITLE: PRIMARY CARE NURSING NOTE DATE OF NOTE: SEP 05, 2024@08:49 ENTRY DATE: SEP 05, 2024@08:49:17 AUTHOR: LUCY NORRIS COSIGNER: URGENCY: STATUS: COMPLETED Hemoglobin A1C Results: Collection DT Specimen Test Name Result Units Ref Range 06/15/2024 10:37 BLOOD HEMOGLOBIN A1C 6.7 H % 3.6 - 5.7 Comment: Values obtained from A1C measurements can vary. For typical A1C Comment: assays, a reported value of 7.0 could actually be between 6.72 and Comment: 7.28 if measured by a reference method. A reported value of 9.0 Comment: could actually be between 8.73 and 9.27. Ref: Comment: http://www.ngsp.org/CAPdata.asp 02/15/2024 07:53 BLOOD HEMOGLOBIN A1C 6.9 H % 3.6 - 5.7 Comment: Values obtained from A1C measurements can vary. For typical A1C Comment: assays, a reported value of 7.0 could actually be between 6.72 and Comment: 7.28 if measured by a reference method. A reported value of 9.0 Comment: could actually be between 8.73 and 9.27. Ref: Comment: http://www.ngsp.org/CAPdata.asp 08/31/2023 09:56 BLOOD HEMOGLOBIN A1C 6.5 H % 3.6 - 5.7 Comment: Values obtained from A1C measurements can vary. For typical A1C Comment: assays, a reported value of 7.0 could actually be between 6.72 and Comment: 7.28 if measured by a reference method. A reported value of 9.0 Comment: could actually be between 8.73 and 9.27. Ref: Comment: http://www.ngsp.org/CAPdata.asp Review Allergies Allergies reviewed and updated per protocol. ALLERGIES/ADVERSE REACTIONS Type: DRUG Date/Time Reactant Severity Reaction 08/26/2021 08:06 HCTZ HYDROCHLOROTH COLD SWEATS 09/01/2016 13:38 PENICILLIN UNKNOWN Type: OTHER Date/Time Reactant Severity Reaction 08/26/2021 08:05 ADHESIVE TAPE ERYTHEMA MEDICATION LIST REVIEW REPORT Patient states no change in documented OTC/Herbals at this visit. 1. Has the patient been feeling sad or distressed? No 2. Has the patient been having personal or family problems? No 3. Has the patient been experiencing worry and/or stress? No 4. Has the patient been having problems with drugs and/or alcohol? No 5. Crisis Line pocket card was provided to patient. No/patient declined [facility] not documented this visit. Clinical Reminders Activity Suicide Screen: C-SSRS Screening [place] Suicide Severity Rating Scale (C-SSRS) screener 1. Over the past month, have you wished you were or wished you could go to sleep and not wake up? No 2. Over the past month, have you had any actual thoughts of killing yourself? No 3. Over the past month, have you been thinking about how you might do this? Response not required due to responses to other questions. 4. Over the past month, have you had these thoughts and had some intention of acting on them? Response not required due to responses to other questions. 5. Over the past month, have you started to work out or worked out the details of how to kill yourself? Response not required due to responses to other questions. 6. If yes, at any time in the past month did you intend to carry out this plan? Response not required due to responses to other questions. 7. In your lifetime, have you ever done anything, started to do anything, or prepared to do anything to end your life (for example, collected pills, obtained a gun, gave away valuables, went to the roof but didn't jump)? No 8. If YES, was this within the past 3 months? Response not required due to responses to other questions. Homelessness/Food Insecurity Screen: In the past 2 months, have you been living in stable housing that you own, rent, or stay in as part of a household? Yes - Living in stable housing. Are you worried or concerned that in the next 2 months you may NOT have stable housing that you own, rent, or stay in as part of a household? No - Not worried about housing near future The reports the following: Within the past 12 months, you worried whether your food would run out before you got money to buy more. Never true Within the past 12 months, the food you bought just didn't last and you didn't have money to get more. Never true Learning Assessment: LEARNING NEEDS ASSESSMENT: I. Learning Preference: Visual Hearing Hands-on Written (in [place] language) II. Barriers to Learning: Visual Limitations : wears glasses Hearing Limitations : SOLOMON, wears hearing aids III. Social Influences Related to Educational Needs: No social barriers to learning IV. Readiness to Learn: Patient Appears ready to learn. Patient Education Documentation: LEARNING NEEDS ASSESSMENT: Learning Preference: Visual Hearing Hands-on Written (in [place] language) Barriers to Learning: Visual Limitations : wears glasses Hearing Limitations : SOLOMON, wears hearing aids Social Influences Related to Educational Needs: No social barriers to learning Pneumococcal Conjugate Vaccine (PCV15/PCV20): Refuses PCV vaccine Immunization: PNEUMOCOCCAL CONJUGATE, UNSPECIFIED FORMULATION Refusal Reason: PATIENT DECISION Patient refuses all immunization(s) in the PneumoPCV group Date Documented: 09/05/24 08:52 Tobacco Use Screening: The patient has never used tobacco. Herpes Zoster (Shingles) Vaccine: The patient declines to receive the recommended dose of zoster (shingles) vaccine. Immunization: ZOSTER RECOMBINANT Refusal Reason: PATIENT DECISION Patient refuses all immunization(s) in the ZOSTER group Date Documented: 09/05/24 08:52 Depression Screening: Perform PHQ-2 A PHQ-2 screen was performed. The score was 0 which is a negative screen for depression. Over the past two weeks, how often have you been bothered by the following problems? 1. Little interest or pleasure in doing things Not at all 2. Feeling down, depressed, or hopeless Not at all COVID-19 Immunization: Refused Pfizer Monovalent COVID-19 vaccine Immunization: COVID-19 (PFIZER), MRNA, LNP-S, PF, ELENA-SUCROSE, 30 MCG/0.3 ML (AGES 12+ YEARS) Refusal Reason: PATIENT DECISION Patient refuses all immunization(s) in the COVID-19 group Date Documented: 09/05/24 08:53 Alcohol Use Screen (AUDIT-C): Alcohol Screen: SCREEN FOR ALCOHOL (AUDIT-C) An alcohol screening test (AUDIT-C) was negative (score=0). 1. How often did you have a drink containing alcohol in the past year? Consider a drink to be a 12 ounce can or bottle of regular beer, 8 ounces of malt liquor, a 5 ounce glass of table wine, or a 1.5 ounce shot of liquor (like scotch, gin, or vodka). Never 2. How many drinks containing alcohol did you have on a typical day when you were drinking in the past year? Response not required due to responses to other questions. 3. How often did you have six or more drinks on one occasion in the past year? Response not required due to responses to other questions. Advance Directive Education Screen: Patient received information regarding Advance Directives: No - Patient declined information at this time. /paulo/ LUCY NORRIS LICENSED PRACTICAL NURSE Signed: 09/05/2024 09:04 LUCY NORRIS OC
--- OUTSIDE RECORDS SUMMARY | 2024-09-12 09:30 | XMS_ITS | Encounter Summary ---
Author Name [facility] Organization [facility] [place] Address [address] [place] [id number] Care Team Providers Care Maintenance Representative Name Role Phone PITA PATEL Primary Care [...] PART B Oct 09, 2015 PART B [id number] [phone] Anisha OROSCO PATIENT MEDICARE (WNR) MEDICARE (M) PART A Oct 09, 2015 PART A [id number] Anisha OROSCO PATIENT MEDICARE (WNR) MEDICARE (M) PART A Oct 09, 2015 PART A [id number] [phone] Anisha OROSCO PATIENT MEDICARE (WNR) MEDICARE (M) PART B Oct 09, 2015 PART B [id number] Anisha OROSCO PATIENT Selected Encounter This section includes the information on record at [place] for the Encounter. Date/Time Encounter Type Encounter Description Reason Provider Source Sep 12, 2024 01:30 PM [facility] 6 OR MORE PODIATRY ICD-10-CM E11.42 Type 2 diabetes mellitus with diabetic polyneuropathy SHERYL VALE Rosalinda Encounter Template Text not used by [place] Assessments - Encounter Diagnoses This section includes the primary and secondary diagnoses documented for the Encounter. Date/Time Primary/Secondary Diagnosis Diagnosis Name Provider Source Sep 12, 2024 02:13 PM PRIMARY Type 2 diabetes mellitus with diabetic polyneuropathy SHERYL VALE CB Sep 12, 2024 02:13 PM SECONDARY Nail dystrophy KAVINSHERYLDONTA POON CB Sep 12, 2024 02:13 PM SECONDARY Tinea unguium SHERYL VALE CB Sep 12, 2024 02:13 PM SECONDARY Type 2 diabetes mellitus without complications SHERYL VALE [facility] Plan of Treatment: Future Appointments (+ 6 months) and Future Tests (+/- 45 days) The Plan of Treatment section includes future care activities for the patient from all [place] treatmentfacilities. This section includes future appointments and future orders which are active, pending or scheduled. Future Appointments This section includes appointments that were scheduled to occur 6 months from the date of the Encounter, up to a maximum of 20 appointments. The data comes from all [place] treatment facilities. Appointment Date/Time Appointment Type Appointme nt Facility Name Dec 12, 2024 01:30 PM AMBULATORY - SURGERY [facility] Feb 27, 2025 09:00 AM AMBULATORY - NONE [facility] Lab Results: +/- 30 days of the encounter This section includes the Chemistry and Hematology Lab Results on record with [place] for the patient. Radiology Reports and Pathology Reports are provided separately, in subsequent sections. Lab Results This section contains the Chemistry/Hematology Results that were resulted 30 days before or 30 daysafter the date of the Encounter. Date/Time Source Result Type Result - Unit Interpretation Reference Range Specimen Type Comment Aug 29, 2024 01:07 PM [facility] CREATININE (W EGFR) PLASMA Specimen [...] Feb 16, 2024 02:04 PM Reporting Lab: [address] [id number] Performing Lab: [place] [id number] CREATININE 1.2 mg/dL 0.72-1.25 EGFR (CALCULATED) 64.0 mL/min Aug 29, 2024 01:07 PM [facility] HEPATIC FUNCTION PANEL PLASMA Specimen [...] Feb 16, 2024 02:04 PM Reporting Lab: [address] [phone] Performing Lab: [place] [id number] ALBUMIN 4.0 g/dL 3.2-4.6 ALKALINE PHOSPHATASE 80 U/L 40-150 ALT/SGPT 26 U/L <55 AST/SGOT 26 U/L 5-34 BILIRUBIN,DIRECT 0.4 mg/dL <0.5 PROTEIN, TOTAL 6.3 g/dL L 6.4-8.3 BILIRUBIN, TOTAL 1.1 mg/dL 0.2-1.2 Aug 29, 2024 01:07 PM [facility] CBC BLOOD Specimen Type: BLOOD No comment entered. Ordering Provider: ENA PALACIOS Report Released Date/Time: Feb 16, 2024 02:04 PM Reporting Lab: [address] [address] Performing Lab: [place] [id number] WBC COUNT 6.7 10*3/uL 3.6-11.0 RBC COUNT [...] fL 7.4-11.4 Aug 29, 2024 01:07 PM [facility] LIPID PROFILE PLASMA Specimen Type: [...] Aug 29, 2024 01:07 PM Reporting Lab: [address] [phone] Performing Lab: [address] [address] CHOLESTEROL 135 mg/dL <199 LDL CHOLESTEROL 91 mg/dL <99 HDL CHOLESTEROL 35 mg/dL L >60 TRIGLYCERIDE 57 mg/dL <149 Aug 29, 2024 01:07 PM [facility] TSH PLASMA Specimen Type: PLASMA [...] Aug 29, 2024 01:07 PM Reporting Lab: [place] [id number] Performing Lab: [place] [id number] TSH 1.007 u[IU]/mL 0.360-4.500 Aug 29, 2024 01:07 PM [facility] PROSTATE SPECIFIC ANTIGEN SERUM Speci men Type: SERUM No comment entered. Ordering Provider: PITA PATEL Report Released Date/Time: Aug 29, 2024 01:07 PM Reporting Lab: [address] [phone] Performing Lab: [place] [id number] PROSTATE SPECIFIC ANTIGEN 4.35 ng/mL H <4. 00 Social History: Smoking Status (Most current) and Tobacco Use (All prior to encounter date) This section includes the most current, and the historical, smoking and tobacco- related health factors from the [place] facility where the Encounter took place. Current Smoking Status This section includes the most current smoking, or tobacco-related health factor, from the [place] facility where the Encounter took place. Date/Time Current Smoking Status Comment [facility] Sep 05, 2024 09:00 AM [place]-TOBACCO NEVER USED [facility] Tobacco Use History This section includes a history of the smoking, or tobacco-related health factors, that were collected on or before the date of the Encounter. The data comes from the [place] facility where the Encounter took place. Date/Time Smoking Status/Tobacco Use Comment F acility Aug 31, 2023 09:30 AM [place]-TOBACCO NEVER USED [facility] Aug 27, 2022 [...] Encounter. Date/Time Encounter Note(s) Provider Source Sep 12, 2024 07:20 AM PODIATRY NURSING O UTPATIENT NOTE: LOCAL TITLE: PODIATRY [facility] NURSING NOTE (T) STANDARD TITLE: PODIATRY NURSING OUTPATIENT NOTE DATE OF NOTE: SEP 12, 2024@07:20 ENTRY DATE: SEP 12, 2024@07:20:16 AUTHOR: SHERYL VALE COSIGNER: URGENCY: STATUS: COMPLETED PODIATRY [facility] NURSING NOTE (T) Has ADDENDA SUBJECTIVE: 73 year old vet ambulated into clinic unassisted. CHIEF COMPLAINT: Vet here for foot and toenail care. Vet is a diabetic, last A1c 6.7 on 06/15/24. Vet denies any pain in his feet or ankles today. Review Allergies Allergies reviewed and updated per [...] warm b/l DERMATOLOGIC: - Nails 2-5 b/l elongated, thickened and discolored. Hallux nails b/l distrophic, slightly elongated, thickened and discolored. - Web spaces clean and dry b/l - Skin intact, no open lesions or cracking noted. No edema, varicosities or hair. NEUROLOGIC: - Protective sensation deminished 7/10 right foot 6/10 left foot checked with SWMF. Lite sensation to b/l heels and right toe. MUSCULOSKELETAL: - Muscle strength 5/5 in all four quadrants. - ROM within normal range. - Partially [...] Diabetes Mellitus with neuropathy, onychomycosis, anticoagulation therapy, onycholysis, PLAN: Dr. Gonzalez examined the patient, was consulted, and directed care of this patient. Treatment today consisted of: - 10 Nails debrided and dremeled without incident. - Reviewed diabetic foot education with vet - RTC in 3 months with blueprint machine operator. /paulo/ SHERYL VALE LICENSED PRACTICAL NURSE Signed: 09/12/2024 14:13 Receipt Acknowledged By: 09/13/2024 07:43 /paulo/ CARLITOS GONZALEZ PSYCHIATRIC RN 09/13/2024 ADDENDUM STATUS: COMPLETED Agree with the above assessment and treatment plan. Treatment plan/Debridement to reduce painful ambulation and risk of infection. /paulo/ CARLITOS GONZALEZ PSYCHIATRIC RN Signed: 09/13/2024 07:43 SHERYL VALE [facility]
--- OUTSIDE RECORDS SUMMARY | 2024-12-12 09:30 | XMS_ITS | Encounter Summary ---
Author Name [facility] Organization [facility] ([place]) Address [address] [place] [address] Care Team Providers Care Sourcing Manager Name Role Phone PITA PATEL Primary Care [...] PART A Oct 09, 2015 PART A [id number] Anisha OROSCO PATIENT MEDICARE (WNR) MEDICARE (M) PART B Oct 09, 2015 PART B [id number] Anisha OROSCO PATIENT MEDICARE (WNR) MEDICARE (M) PART A Oct 09, 2015 PART A [id number] Anisha OROSCO PATIENT MEDICARE (WNR) MEDICARE (M) PART B Oct 09, 2015 PART B [id number] Ainsha OROSCO PATIENT Selected Encounter This section includes the information on record at [place] for the Encounter. Date/Time Encounter Type Encounter Description Reason Provider Source Dec 12, 2024 01:30 PM OFFICE O/P EST MOD 30 MIN PODIATRY ICD-10-CM E11.42 Type 2 diabetes mellitus with diabetic polyneuropathy MUSTAPHA GONZALEZ E Encounter Template Text not used by [place] Assessments - Encounter Diagnoses This section includes the primary and secondary diagnoses documented for the Encounter. Date/Time Primary/Secondary Diagnosis Diagnosis Name Provider Source Dec 12, 2024 02:03 PM PRIMARY Type 2 diabetes mellitus with diabetic polyneuropathy DAMIAN GONZALEZ [facility] Dec 12, 2024 02:03 PM SECONDARY Tinea pedis DAMIAN GONZALEZ [facility] Dec 12, 2024 02:03 PM SECONDARY Tinea unguium DAMIAN GONZALEZ [facility] Plan of Treatment: Future Appointments (+ 6 months) and Future Tests (+/- 45 days) The Plan of Treatment section includes future care activities for the patient from all [place] treatmentfacilities. This section includes future appointments and future orders which are active, pending or scheduled. Future Appointments This section includes appointments that were scheduled to occur 6 months from the date of the Encounter, up to a maximum of 20 appointments. The data comes from all [place] treatment facilities. Appointment Date/Time Appointment Type Appointme nt Facility Name Feb 27, 2025 09:00 AM AMBULATORY - NONE FITO Abdul [facility] March 14, 2025 11:30 AM AMBULATORY - SURGERY MONICA GARCIA [facility] Social History: Smoking Status (Most current) and Tobacco Use (All prior to encounter date) This section includes the most current, and the historical, smoking and tobacco- related health factors from the [place] facility where the Encounter took place. Current Smoking Status This section includes the most current smoking, or tobacco-related health factor, from the [place] facility where the Encounter took place. Date/Time Current Smoking Status Comment Facil ity Sep 05, 2024 09:00 AM [place]TO[place] NEVER USED [facility] Tobacco Use History This section includes a history of the smoking, or tobacco-related health factors, that were collected on or before the date of the Encounter. The data comes from the [place] facility where the Encounter took place. Date/Time [...] the Encounter. Date/Time Encounter Note(s) Provider Source Dec 12, 2024 01:34 PM PODIATRY NOTE: LOCAL TITLE: PODIATRY CLINIC NOTE (T) STANDARD TITLE: PODIATRY NOTE DATE OF NOTE: DEC 12, 2024@13:34 ENTRY DATE: DEC 12, 2024@13:34:23 AUTHOR: CARLITOS GONZALEZ COSIGNER: URGENCY: STATUS: COMPLETED [facility] SOAP Note SUBJECTIVE: The patient is a 74 year old MALE. Chief Complaint: dm foot care Past Medical History: Pt presents today for dm foot care. Pt states that he has occasional days with neuropathy pain in the feet, overall not too much. Recent A1C was 6.7. PATIENT ALLERGIES DETAILED ALLERGIES/ADVERSE REACTIONS Type: DRUG [...] TWICE A DAY ACTIVE DIRECTED BY THE [facility] ([phone] [id number]) 2) EMPAGLIFLOZIN 25MG TAB TAKE ONE-HALF TABLET BY MOUTH ACTIVE EVERY DAY FOR TYPE 2 DIABETES MELLITUS Active Non-VA Medications Status ========= 1) Non-VA [...] MOUTH AT BEDTIME ACTIVE 9 Total Medications MEDICATION RECONCILIATION MEDICATION RECONCILIATION REPORT reviewed and discussed with patient. VA prescription medications: Patient verifies that they are in receipt of a complete and accurate list of medications. Prescription medications from another source: Patient reports changes to the non-VA prescriptions and the patient verifies that they are in receipt of a complete and accurate list of medications. Please see the Medications Tab. Over the counter medications, vitamins, herbals, and nutritional supplements: Patient verifies that they are in receipt of a complete and accurate list of medications. ALLERGIES: ALLERGIES/ADVERSE REACTIONS Type: DRUG Date/Time Reactant Severity Reaction 08/26/2021 08:06 HCTZ HYDROCHLOROTH COLD SWEATS 09/01/2016 13:38 PENICILLIN UNKNOWN Type: OTHER Date/Time Reactant Severity Reaction 08/26/2021 08:05 ADHESIVE TAPE ERYTHEMA Food allergies: None known FOOT RISK LEVEL: DATE TIME HEALTH FACTOR ---- ---- 12/15/2023 15:30 DAY LIMB CARE LEVEL 2 03/15/2024 13:00 DAY LIMB CARE LEVEL 2 06/15/2024 11:00 DAY LIMB CARE LEVEL 2 09/12/2024 13:30 DAY LIMB CARE LEVEL 2 ACTIVE PROBLEM Sleep apnea 09/05/2024 Chronic kidney disease stage 3A 09/05/2024 Exposure to Potentially Hazardous 03/02/2024 Substance ([facility] [id number]) AF- Atrial Fibrillation ([facility] [id number]) 08/26/2021 Kidney stone 08/26/2021 Acquired hammer toe of left foot 09/08/2019 Sensorineural hearing loss, bilateral 03/09/2017 Diabetic peripheral neuropathy 09/12/2016 associated with type 2 diabetes mellitus Onychomycosis of toenails 09/12/2016 Callus 09/12/2016 Benign essential hypertension 09/01/2016 Diabetes mellitus 09/01/2016 Hyperlipidemia 09/01/2016 Hypokalemia 09/01/2016 OBJECTIVE: Vasc: DP/PT palpable, 2/4 b/l. CFT < 3 seconds to the digits. Skin temperature warm to warm from proximal to distal b/l. Mild nonpitting edema noted b/l lower legs. + hair growth to the digits Neuro: Protective sensation intact at 10/10 sites left, 9/10 right as tested with SWMF. Light touch sensation intact to the hallux b/l. Derm: Nails 1-5 b/l thickened, elongated and discolored; copious subungual debris. Webspaces 1-4 right, 1-2,4 left clean, dry, and intact. Webspace 3 left with maceration, mild erosion and malodor. Skin erythematous and scaling in mocassin distribution. Minimal hyperkeratosis noted to medial hallux IPJ left Musc: 5/5 muscle strength for all 4 quadrants. Partially reducible 2nd digit contracture b/l, left greater than right. Hallux abducted with prominent medial eminence noted right 1st ray, reduced 1st MPJ ROM, no pain to palpation. Reducible contracture lesser digits. PAVE FOOT EXAM A foot risk level [...] on the importance of not walking barefoot ASSESSMENT: After reviewing the H&P and clinical findings, this provider made the diagnosis of: Diabetes with neuropathy Onychomycosis Hyperkeratotic lesions Hammer toe Bunion deformity Anticoagulation therapy Tinea pedis PLAN: Treatment today consisted of: -Patient examination and evaluation. -Debridement of nails 1-5 b/l without incident -Debridement of hyperkeratotic lesion x 1 with rotary drill. -Rx lamisil 250mg x 14 days for tinea pedis -Patient to return to clinic in 3 months to f/u tinea pedis RESPONSE TO CARE/RATIONALE FOR CARE: Pt stable, will continue to see for hygienic care to prevent complications /es/ CARLITOS GONZALEZ [employer] Signed: 12/12/2024 14:04 CARLITOS GONZALEZ [facility]
--- OUTSIDE RECORDS SUMMARY | 2025-04-19 09:36 | XMS_ITS | Continuity of Care Document ---
Author Name [facility] Organization [facility] Care Team Providers Care Brass Bobbin Winder Name Role Phone [facility] Unavailable Unavailable Problems Combined list of problems from Department of [facility] and [facility] facilities. It does not include entries that were removed or entered in error. Problem Status Onset Date Problem Type Date of Resolution Comments Source Acquired hammer toe of left foot Active Condition [facility] AF- Atrial Fibrillation (SCT [id number]) Active Condition [facility] Benign essential hypertension Active Condition [facility] Callus Active Condition [facility] Chronic kidney disease stage 3A Active Condition [facility] Diabetes mellitus Active Condition [facility] Diabetic peripheral neuropathy associated with type 2 diabetes mellitus Active Condition [facility] Exposure to Potentially Hazardous Substance ([facility] [id number]) Active Condition [facility] Hyperlipidemia Active Condition [facility] Hypokalemia Active Condition [facility] Kidney stone Active Condition [facility] Onychomycosis of toenails Active Condition [facility] Sensorineural hearing loss, bilateral Active Condition [facility] Sleep apnea Active Condition [facility] Diagnosis: ICD-10-CM E11.42 Type 2 diabetes mellitus with diabetic polyneuropathy Active Diagnosis [facility] Diagnosis: ICD-10-CM E11.9 Type 2 diabetes mellitus without complications Active Diagnosis [facility] Diagnosis: ICD-10-CM I48.91 Unspecified atrial fibrillation Active Diagnosis [facility] Diagnosis: ICD-10-CM Z51.81 Encounter for therapeutic drug level monitoring Active Diagnosis [facility] Diagnosis: ICD-10-CM Z46.1 Encounter for fitting and adjustment of hearing aid Active Diagnosis [facility] [place] [facility] Diagnosis: ICD-10-CM H90.3 Sensorineural hearing loss, bilateral Active Diagnosis [facility] [place] [facility] Medications Combined list of outpatient medications from Department of [facility] and [facility] facilities.Medications provided include 1) outpatient medications from the last 15 months, and 2) patient-reported medications. Medication Details Route Status Patient Instructions Prescription Expires Prescription Number Last Dispense Date Ordering Provider Order Date Order Qty Source AMLODIPINE BESYLATE 10MG TAB TAKE ONE TABLET BY MOUTH EVERY DAY ORAL ACTIVE Bashir GONZALEZ 2017 [facility] APIXABAN 5MG TAB TAKE ONE TABLET BY MOUTH TWICE A DAY DIRECTED BY [facility] EXT.[id number] 7) ORAL ACTIVE 07/05/2025 [id number] Franko CORADO [address] [facility] APIXABAN 5MG TAB TAKE ONE TABLET BY MOUTH TWICE A DAY DIRECTED BY THE [facility] EXT.[id number] 7) ORAL DISCONT INUED 08/14/2024 [id number] YUSUF AZAR [address] [facility] CLONIDINE HCL 0.2MG TAB TAKE ONE TABLET BY MOUTH TWICE A DAY ORAL ACTIVE Bashir GONZALEZ 2024 [facility] EMPAGLIFLOZ IN 25MG TAB TAKE ONE-HALF TABLET BY MOUTH EVERY DAY FOR TYPE 2 DIABETES MELLITUS ORAL ACTIVE 02/28/2026 [id number] IFRAH,REBEC CA LAVELL 2024 45 [facility] EMPAGLIFLOZ IN 25MG TAB TAKE ONE-HALF TABLET BY MOUTH EVERY DAY FOR TYPE 2 DIABETES MELLITUS ORAL DISCONT INUED 09/06/2025 [id number] IWONA PATEL 2023 45 [facility] EMPAGLIFLOZ IN 25MG TAB TAKE ONE-HALF TABLET BY MOUTH EVERY DAY FOR TYPE 2 DIABETES MELLITUS ORAL DISCONT INUED 06/18/2025 [id number] IFRAH,REBEC CA LAVELL 2023 45 [facility] EMPAGLIFLOZ IN 25MG TAB TAKE ONE-HALF TABLET BY MOUTH EVERY DAY FOR TYPE 2 DIABETES MELLITUS ORAL DISCONT INUED (EDIT) 04/12/2025 [id number] IFRAH,REBEC CA LAVELL 2023 30 [facility] FOSINOPRIL NA 40MG TAB TAKE ONE TABLET BY MOUTH EVERY DAY ORAL ACTIVE Bashir GONZALEZ [address] [facility] METFORMIN HCL 500MG TAB TAKE ONE TABLET BY MOUTH WITH DINNER ORAL ACTIVE IFRAH,REBEC CA LAVELL 2023 [facility] METOPROLOL SUCCINATE 50MG TAB,SA TAKE ONE TABLET BY MOUTH EVERY DAY ORAL ACTIVE IFRAH,REBEC CA LAVELL 2023 [facility] OMEPRAZOLE 20MG CAP,EC TAKE 1 CAPSULE BY MOUTH EVERY MORNING, ON AN EMPTY STOMACH ORAL ACTIVE AMANDA,RE YAMILETH A [address] [facility] POTASSIUM CHLORIDE 20MEQ TAB,SA (DISPERSIBL E) TAKE ONE TABLET BY MOUTH THREE TIMES A DAY ORAL ACTIVE AMANDA,RE YAMILETH A 2023 [facility] SIMVASTATIN 40MG TAB TAKE ONE TABLET BY MOUTH AT BEDTIME ORAL ACTIVE IFRAH,REBEC CA LAVELL 2024 [facility] TERBINAFINE HCL 250MG TAB TAKE ONE TABLET BY MOUTH EVERY DAY FOR ATHLETE' S FOOT ORAL 01/11/2025 [id number] Bashir GONZALEZ 2024 14 [facility] Allergies, Adverse Reactions, Alerts Combined list of allergies from [facility] of Defense and [facility] facilities. It does not include entries that were removed or entered in error. Substance Category Reaction Severity Reaction type Status Date Reported Comments Source ADHESIVE TAPE Propensity to adverse reaction (finding) Erythema active 1 [facility] HCTZ HYDROCHLOROTH IAZIDE Propensity to adverse reactions to drug (finding) Cold sweat active 1 [facility] PENICILLIN Propensity to adverse reactions to drug (finding) active 6 [facility] Immunizations Combined list of available immunizations from the Department of Defense and Veterans Affairs facilities. Immunization Series Date Given Administered By Site Reaction Lot Number CVX Code Drug Shed Hand Status Comments Source INFLUENZA, ADJUVANTED, TRIVALENT, PF 6 2023 168 complet ed HISTORICA L INFORMATI ON - FROM OTHER REGISTRY, [facility] INFLUENZA VACCINE, QUADRIVALENT, ADJUVANTED 5 2022 205 complet ed [facility]ISTORICA L INFORMATI ON - FROM OTHER REGISTRY, [facility] INFLUENZA, UNSPECIFIED FORMULATION [address] [facility] INFLUENZA, HIGH DOSE SEASONAL 4 2021 135 complet ed [facility]ISTORICA L INFORMATI ON - FROM OTHER REGISTRY, [facility] INFLUENZA VACCINE, QUADRIVALENT, ADJUVANTED 2020 205 complet ed [facility] COVID-19 (PFIZER), MRNA, LNP-S, PF, 30 MCG/0.3 ML DOSE [address] [facility] COVID-19 (PFIZER), MRNA, LNP-S, PF, 30 MCG/0.3 ML DOSE 1 [address] [facility] INFLUENZA, TRIVALENT, ADJUVANTED 3 2019 168 complet ed HISTORICA L INFORMATI ON - FROM OTHER REGISTRY, [facility] INFLUENZA, TRIVALENT, ADJUVANTED 2 2018 168 complet ed HISTORICA L INFORMATI ON - FROM OTHER REGISTRY, [facility] INFLUENZA, TRIVALENT, ADJUVANTED 2018 168 complet ed [facility] INFLUENZA, TRIVALENT, ADJUVANTED 1 2017 168 complet ed HISTORICA L INFORMATI ON - FROM OTHER REGISTRY, [facility] TDAP 2016 115 complet ed [facility] INFLUENZA, HIGH DOSE SEASONAL 2016 135 complet ed [facility] INFLUENZA, HIGH DOSE SEASONAL 2015 135 complet ed [facility] Results Combined list of recent chemistry, hematology and other laboratory results from Department of Defense and [facility] Affairs, ranging from 15 months to all on record, depending upon the facility. Order Name Results Value Reference Range Date Interpretation Specimen Comments Source CREATININ E (W EGFR) CREATININE [MASS/VOLUM E] IN SERUM OR PLASMA 1.2 mg/dL 0.72 - 1.25 08/29 Specimen Type: PLASMA Comment: DLDLREF RANGE: NEAR OR ABOVE OPTIMAL: 100-129 mg/dL BORDERLINE DLDLHIGH: 130-159 mg/dL HIGH: 160-189 mg/dL VERY HIGH: >=190 TRIG REF RANGE: BORDERLINE HIGH: 150-199 mg/dL HIGH: 200-499 mg/dL TRIG VERY HIGH: >=500 mg/dL CREA eGFR was calculated using the CKD-EPI 2020 equation. CHOL REF RANGE: BORDERLINE HIGH: 200-239 mg/dL HIGH: >=240 mg/dL Ordering Provider: KAMRAN PALACIOS Report Released Date/Time: Feb 16, 2024 02:04 PM Reporting Lab: [place] [id number] Performing Lab: [place] [id number] CREATININ E (W EGFR) GLOMERULAR FILTRATION RATE/1.73 SQ M.PREDICTED [VOLUME RATE/AREA] IN SERUM, PLASMA OR BLOOD BY CREATININE- BASED FORMULA (CKD-EPI 2020) 64.0 mL/min 08/29 Specimen Type: PLASMA Comment: DLDLREF RANGE: NEAR OR ABOVE OPTIMAL: 100-129 mg/dL BORDERLINE DLDLHIGH: 130-159 mg/dL HIGH: 160-189 mg/dL VERY HIGH: >=190 TRIG REF RANGE: BORDERLINE HIGH: 150-199 mg/dL HIGH: 200-499 mg/dL TRIG VERY HIGH: >=500 mg/dL CREA eGFR was calculated using the CKD-EPI 2020 equation. CHOL REF RANGE: BORDERLINE HIGH: 200-239 mg/dL HIGH: >=240 mg/dL Ordering Provider: KAMRAN PALACIOS Report Released Date/Time: Feb 16, 2024 02:04 PM Reporting Lab: [place] [id number] Performing Lab: [address] HEPATIC FUNCTION PANEL ALBUMIN [MASS/VOLUM E] IN SERUM OR PLASMA 4.0 g/dL 3.2 - 4.6 08/29 Specimen Type: PLASMA Comment: DLDLREF RANGE: NEAR OR ABOVE OPTIMAL: 100-129 mg/dL BORDERLINE DLDLHIGH: 130-159 mg/dL HIGH: 160-189 mg/dL VERY HIGH: >=190 TRIG REF RANGE: BORDERLINE HIGH: 150-199 mg/dL HIGH: 200-499 mg/dL TRIG VERY HIGH: >=500 mg/dL CREA eGFR was calculated using the CKD-EPI 2020 equation. CHOL REF RANGE: BORDERLINE HIGH: 200-239 mg/dL HIGH: >=240 mg/dL Ordering Provider: KAMRAN PALACIOS Report Released Date/Time: Feb 16, 2024 02:04 PM Reporting Lab: [place] [id number] Performing Lab: [address] [id number] [facility] HEPATIC FUNCTION PANEL ALKALINE PHOSPHATASE [ENZYMATIC ACTIVITY/VO LUME] IN SERUM OR PLASMA 80 U/L 40 - 150 08/29 Specimen Type: PLASMA Comment: DLDLREF RANGE: NEAR OR ABOVE OPTIMAL: 100-129 mg/dL BORDERLINE DLDLHIGH: 130-159 mg/dL HIGH: 160-189 mg/dL VERY HIGH: >=190 TRIG REF RANGE: BORDERLINE HIGH: 150-199 mg/dL HIGH: 200-499 mg/dL TRIG VERY HIGH: >=500 mg/dL CREA eGFR was calculated using the CKD-EPI 2020 equation. CHOL REF RANGE: BORDERLINE HIGH: 200-239 mg/dL HIGH: >=240 mg/dL Ordering Provider: KAMRAN PALACIOS Report Released Date/Time: Feb 16, 2024 02:04 PM Reporting Lab: [place] [id number] Performing Lab: [place] [id number] [place] [address] HEPATIC FUNCTION PANEL ALANINE AMINOTRANSF ERASE [ENZYMATIC ACTIVITY/VO LUME] IN SERUM OR PLASMA 26 U/L <55 - 55 08/29 Specimen Type: PLASMA Comment: DLDLREF RANGE: NEAR OR ABOVE OPTIMAL: 100-129 mg/dL BORDERLINE DLDLHIGH: 130-159 mg/dL HIGH: 160-189 mg/dL VERY HIGH: >=190 TRIG REF RANGE: BORDERLINE HIGH: 150-199 mg/dL HIGH: 200-499 mg/dL TRIG VERY HIGH: >=500 mg/dL CREA eGFR was calculated using the CKD-EPI 2020 equation. CHOL REF RANGE: BORDERLINE HIGH: 200-239 mg/dL HIGH: >=240 mg/dL Ordering Provider: KAMRAN PALACIOS Report Released Date/Time: Feb 16, 2024 02:04 PM Reporting Lab: [place] [id number] Performing Lab: [place] [id number] [facility] HEPATIC FUNCTION PANEL ASPARTATE AMINOTRANSF ERASE [ENZYMATIC ACTIVITY/VO LUME] IN SERUM OR PLASMA 26 U/L 5 - 34 08/29 Specimen Type: PLASMA Comment: DLDLREF RANGE: NEAR OR ABOVE OPTIMAL: 100-129 mg/dL BORDERLINE DLDLHIGH: 130-159 mg/dL HIGH: 160-189 mg/dL VERY HIGH: >=190 TRIG REF RANGE: BORDERLINE HIGH: 150-199 mg/dL HIGH: 200-499 mg/dL TRIG VERY HIGH: >=500 mg/dL CREA eGFR was calculated using the CKD-EPI 2020 equation. CHOL REF RANGE: BORDERLINE HIGH: 200-239 mg/dL HIGH: >=240 mg/dL Ordering Provider: KAMRAN PALACIOS Report Released Date/Time: Feb 16, 2024 02:04 PM Reporting Lab: [place] [id number] Performing Lab: [place] [id number] [place] [address] HEPATIC FUNCTION PANEL BILIRUBIN.D IRECT [MASS/VOLUM E] IN SERUM OR PLASMA 0.4 mg/dL <0.5 - 0.5 08/29 Specimen Type: PLASMA Comment: DLDLREF RANGE: NEAR OR ABOVE OPTIMAL: 100-129 mg/dL BORDERLINE DLDLHIGH: 130-159 mg/dL HIGH: 160-189 mg/dL VERY HIGH: >=190 TRIG REF RANGE: BORDERLINE HIGH: 150-199 mg/dL HIGH: 200-499 mg/dL TRIG VERY HIGH: >=500 mg/dL CREA eGFR was calculated using the CKD-EPI 2020 equation. CHOL REF RANGE: BORDERLINE HIGH: 200-239 mg/dL HIGH: >=240 mg/dL Ordering Provider: KAMRAN PALACIOS Report Released Date/Time: Feb 16, 2024 02:04 PM Reporting Lab: [place] [id number] Performing Lab: [place] [id number] [facility] HEPATIC FUNCTION PANEL PROTEIN [MASS/VOLUM E] IN SERUM OR PLASMA 6.3 g/dL 6.4 - 8.3 08/29 L Specimen Type: PLASMA Comment: DLDLREF RANGE: NEAR OR ABOVE OPTIMAL: 100-129 mg/dL BORDERLINE DLDLHIGH: 130-159 mg/dL HIGH: 160-189 mg/dL VERY HIGH: >=190 TRIG REF RANGE: BORDERLINE HIGH: 150-199 mg/dL HIGH: 200-499 mg/dL TRIG VERY HIGH: >=500 mg/dL CREA eGFR was calculated using the CKD-EPI 2020 equation. CHOL REF RANGE: BORDERLINE HIGH: 200-239 mg/dL HIGH: >=240 mg/dL Ordering Provider: KAMRAN PALACIOS Report Released Date/Time: Feb 16, 2024 02:04 PM Reporting Lab: [place] [id number] Performing Lab: [address] HEPATIC FUNCTION PANEL BILIRUBIN.T OTAL [MASS/VOLUM E] IN SERUM OR PLASMA 1.1 mg/dL 0.2 - 1.2 08/29 Specimen Type: PLASMA Comment: DLDLREF RANGE: NEAR OR ABOVE OPTIMAL: 100-129 mg/dL BORDERLINE DLDLHIGH: 130-159 mg/dL HIGH: 160-189 mg/dL VERY HIGH: >=190 TRIG REF RANGE: BORDERLINE HIGH: 150-199 mg/dL HIGH: 200-499 mg/dL TRIG VERY HIGH: >=500 mg/dL CREA eGFR was calculated using the CKD-EPI 2020 equation. CHOL REF RANGE: BORDERLINE HIGH: 200-239 mg/dL HIGH: >=240 mg/dL Ordering Provider: KAMRAN PALACIOS Report Released Date/Time: Feb 16, 2024 02:04 PM Reporting Lab: [place] [id number] Performing Lab: [place] [phone] CBC LEUKOCYTES [#/VOLUME] IN BLOOD BY AUTOMATED COUNT 6.7 10*3/u L 3.6 - 11.0 08/29 Specimen Type: BLOOD No comment entered. Ordering Provider: KAMRAN PALACIOS Report Released Date/Time: Feb 16, 2024 02:04 PM Reporting Lab: [place] [id number] Performing Lab: [address] CBC ERYTHROCYTE S [#/VOLUME] IN BLOOD BY AUTOMATED COUNT 4.45 10*6/u L 4.47 - 5.83 08/29 L Specimen Type: BLOOD No comment entered. Ordering Provider: KAMRAN PALACIOS Report Released Date/Time: Feb 16, 2024 02:04 PM Reporting Lab: [place] [id number] Performing Lab: [place] [id number] [place] [address] CBC HEMOGLOBIN [MASS/VOLUM E] IN BLOOD 14.0 g/dL 13.6 - 17.4 08/29 Specimen Type: BLOOD No comment entered. Ordering Provider: KAMRAN PALACIOS Report Released Date/Time: Feb 16, 2024 02:04 PM Reporting Lab: [place] [id number] Performing Lab: [place] [id number] [place] [address] CBC HEMATOCRIT [VOLUME FRACTION] OF BLOOD BY AUTOMATED COUNT 41.9 40.0 - 51.0 08/29 Specimen Type: BLOOD No comment entered. Ordering Provider: KAMRAN PALACIOS Report Released Date/Time: Feb 16, 2024 02:04 PM Reporting Lab: [place] [id number] Performing Lab: [place] [phone] CBC MCV [ENTITIC VOLUME] BY AUTOMATED COUNT 94.0 fL 80.0 - 96.0 08/29 Specimen Type: BLOOD No comment entered. Ordering Provider: KAMRAN PALACIOS Report Released Date/Time: Feb 16, 2024 02:04 PM Reporting Lab: [place] [id number] Performing Lab: [place] [phone] CBC MCH [ENTITIC MASS] BY AUTOMATED COUNT 31.4 pg 27.0 - 31.0 08/29 H Specimen Type: BLOOD No comment entered. Ordering Provider: KAMRAN PALACIOS Report Released Date/Time: Feb 16, 2024 02:04 PM Reporting Lab: [place] [id number] Performing Lab: [place] [id number] [facility] CBC MCHC [MASS/VOLUM E] BY AUTOMATED COUNT 33.4 g/dL 31.5 - 36.5 08/29 Specimen Type: BLOOD No comment entered. Ordering Provider: KAMRAN PALACIOS Report Released Date/Time: Feb 16, 2024 02:04 PM Reporting Lab: [place] [id number] Performing Lab: [place] [phone] CBC PLATELETS [#/VOLUME] IN BLOOD BY AUTOMATED COUNT 185 10*3/u L 150 - 400 08/29 Specimen Type: BLOOD No comment entered. Ordering Provider: KAMRAN PALACIOS Report Released Date/Time: Feb 16, 2024 02:04 PM Reporting Lab: [place] [id number] Performing Lab: [address] CBC LYMPHOCYTES /100 LEUKOCYTES IN BLOOD BY AUTOMATED COUNT 25.3 21.0 - 51.0 08/29 Specimen Type: BLOOD No comment entered. Ordering Provider: KAMRAN PALACIOS Report Released Date/Time: Feb 16, 2024 02:04 PM Reporting Lab: [place] [id number] Performing Lab: [place] [phone] CBC MONOCYTES/1 00 LEUKOCYTES IN BLOOD BY AUTOMATED COUNT 11.1 4.0 - 8.0 08/29 H Specimen Type: BLOOD No comment entered. Ordering Provider: KAMRAN PALACIOS Report Released Date/Time: Feb 16, 2024 02:04 PM Reporting Lab: [place] [id number] Performing Lab: [place] [phone] CBC NUCLEATED ERYTHROCYTE S/100 LEUKOCYTES [RATIO] IN BLOOD BY MANUAL COUNT 0.2 /100{W BCs} 08/29 Specimen Type: BLOOD No comment entered. Ordering Provider: KAMRAN PALACIOS Report Released Date/Time: Feb 16, 2024 02:04 PM Reporting Lab: [place] [phone] Performing Lab: [place] [phone] CBC ERYTHROCYTE DISTRIBUTIO N WIDTH [RATIO] BY AUTOMATED COUNT 12.7 11.2 - 15.8 08/29 Specimen Type: BLOOD No comment entered. Ordering Provider: KAMRAN PALACIOS Report Released Date/Time: Feb 16, 2024 02:04 PM Reporting Lab: [place] [id number] Performing Lab: [place] [phone] CBC NEUTROPHILS /100 LEUKOCYTES IN BLOOD BY AUTOMATED COUNT 61.7 54.0 - 78.0 08/29 Specimen Type: BLOOD No comment entered. Ordering Provider: KAMRAN PALACIOS Report Released Date/Time: Feb 16, 2024 02:04 PM Reporting Lab: [place] [id number] Performing Lab: [place] [phone] CBC EOSINOPHILS /100 LEUKOCYTES IN BLOOD BY AUTOMATED COUNT 1.3 0.0 - 3.0 08/29 Specimen Type: BLOOD No comment entered. Ordering Provider: KAMRAN PALACIOS Report Released Date/Time: Feb 16, 2024 02:04 PM Reporting Lab: [place] [id number] Performing Lab: [place] [phone] CBC BASOPHILS/1 00 LEUKOCYTES IN BLOOD BY AUTOMATED COUNT 0.6 0.0 - 3.0 08/29 Specimen Type: BLOOD No comment entered. Ordering Provider: KAMRAN PALACIOS Report Released Date/Time: Feb 16, 2024 02:04 PM Reporting Lab: [place] [id number] Performing Lab: [place] [phone] CBC LYMPHOCYTES [#/VOLUME] IN BLOOD BY AUTOMATED COUNT 1.7 10*3/u L 0.8 - 5.0 08/29 Specimen Type: BLOOD No comment entered. Ordering Provider: KAMRAN PALACIOS Report Released Date/Time: Feb 16, 2024 02:04 PM Reporting Lab: [place] [id number] Performing Lab: [place] [id number] [facility] CBC NEUTROPHILS [#/VOLUME] IN BLOOD 4.1 10*3/u L 1.9 - 8.6 08/29 Specimen Type: BLOOD No comment entered. Ordering Provider: KAMRAN PALACIOS Report Released Date/Time: Feb 16, 2024 02:04 PM Reporting Lab: [place] [id number] Performing Lab: [place] [phone] CBC BASOPHILS [#/VOLUME] IN BLOOD BY AUTOMATED COUNT 0.0 10*3/u L 0.0 - 0.3 08/29 Specimen Type: BLOOD No comment entered. Ordering Provider: KAMRAN PALACIOS Report Released Date/Time: Feb 16, 2024 02:04 PM Reporting Lab: [place] [id number] Performing Lab: [place] [phone] CBC MONOCYTES [#/VOLUME] IN BLOOD BY AUTOMATED COUNT 0.7 10*3/u L 0.1 - 0.9 08/29 Specimen Type: BLOOD No comment entered. Ordering Provider: KAMRAN PALACIOS Report Released Date/Time: Feb 16, 2024 02:04 PM Reporting Lab: [place] [id number] Performing Lab: [place] [phone] CBC EOSINOPHILS [#/VOLUME] IN BLOOD BY AUTOMATED COUNT 0.1 10*3/u L 0.0 - 0.3 08/29 Specimen Type: BLOOD No comment entered. Ordering Provider: KAMRAN PALACIOS Report Released Date/Time: Feb 16, 2024 02:04 PM Reporting Lab: [place] [id number] Performing Lab: [place] [phone] CBC PLATELET MEAN VOLUME [ENTITIC VOLUME] IN BLOOD BY AUTOMATED COUNT 9.4 fL 7.4 - 11.4 08/29 Specimen Type: BLOOD No comment entered. Ordering Provider: KAMRAN PALACIOS Report Released Date/Time: Feb 16, 2024 02:04 PM Reporting Lab: [place] [id number] Performing Lab: [place] [phone] LIPID PROFILE CHOLESTEROL [MASS/VOLUM E] IN SERUM OR PLASMA 135 mg/dL <199 - 199 08/29 Specimen Type: PLASMA Comment: DLDLREF RANGE: NEAR OR ABOVE OPTIMAL: 100-129 mg/dL BORDERLINE DLDLHIGH: 130-159 mg/dL HIGH: 160-189 mg/dL VERY HIGH: >=190 TRIG REF RANGE: BORDERLINE HIGH: 150-199 mg/dL HIGH: 200-499 mg/dL TRIG VERY HIGH: >=500 mg/dL CREA eGFR was calculated using the CKD-EPI 2020 equation. CHOL REF RANGE: BORDERLINE HIGH: 200-239 mg/dL HIGH: >=240 mg/dL Ordering Provider: DAJA PATEL CCA Report Released Date/Time: Aug 29, 2024 01:07 PM Reporting Lab: [place] [id number] Performing Lab: [place] [phone] LIPID PROFILE CHOLESTEROL IN LDL [MASS/VOLUM E] IN SERUM OR PLASMA BY DIRECT ASSAY 91 mg/dL <99 - 99 08/29 Specimen Type: PLASMA Comment: DLDLREF RANGE: NEAR OR ABOVE OPTIMAL: 100-129 mg/dL BORDERLINE DLDLHIGH: 130-159 mg/dL HIGH: 160-189 mg/dL VERY HIGH: >=190 TRIG REF RANGE: BORDERLINE HIGH: 150-199 mg/dL HIGH: 200-499 mg/dL TRIG VERY HIGH: >=500 mg/dL CREA eGFR was calculated using the CKD-EPI 2020 equation. CHOL REF RANGE: BORDERLINE HIGH: 200-239 mg/dL HIGH: >=240 mg/dL Ordering Provider: DAJA PATEL CCA Report Released Date/Time: Aug 29, 2024 01:07 PM Reporting Lab: [place] [id number] Performing Lab: [place] [phone] LIPID PROFILE CHOLESTEROL IN HDL [MASS/VOLUM E] IN SERUM OR PLASMA 35 mg/dL 60 08/29 L Specimen Type: PLASMA Comment: DLDLREF RANGE: NEAR OR ABOVE OPTIMAL: 100-129 mg/dL BORDERLINE DLDLHIGH: 130-159 mg/dL HIGH: 160-189 mg/dL VERY HIGH: >=190 TRIG REF RANGE: BORDERLINE HIGH: 150-199 mg/dL HIGH: 200-499 mg/dL TRIG VERY HIGH: >=500 mg/dL CREA eGFR was calculated using the CKD-EPI 2020 equation. CHOL REF RANGE: BORDERLINE HIGH: 200-239 mg/dL HIGH: >=240 mg/dL Ordering Provider: DAJA PATEL CCA Report Released Date/Time: Aug 29, 2024 01:07 PM Reporting Lab: [place] [id number] Performing Lab: [place] [phone] LIPID PROFILE TRIGLYCERID E [MASS/VOLUM E] IN SERUM OR PLASMA 57 mg/dL <149 - 149 08/29 Specimen Type: PLASMA Comment: DLDLREF RANGE: NEAR OR ABOVE OPTIMAL: 100-129 mg/dL BORDERLINE DLDLHIGH: 130-159 mg/dL HIGH: 160-189 mg/dL VERY HIGH: >=190 TRIG REF RANGE: BORDERLINE HIGH: 150-199 mg/dL HIGH: 200-499 mg/dL TRIG VERY HIGH: >=500 mg/dL CREA eGFR was calculated using the CKD-EPI 2020 equation. CHOL REF RANGE: BORDERLINE HIGH: 200-239 mg/dL HIGH: >=240 mg/dL Ordering Provider: DAJA PATEL CCA Report Released Date/Time: Aug 29, 2024 01:07 PM Reporting Lab: [place] [id number] Performing Lab: [place] [phone] TSH THYROTROPIN [UNITS/VOLU ME] IN SERUM OR PLASMA BY DETECTION LIMIT <= 0.005 MIU/L 1.007 u[IU]/ mL 0.360 - 4.500 08/29 Specimen Type: PLASMA Comment: DLDLREF RANGE: NEAR OR ABOVE OPTIMAL: 100-129 mg/dL BORDERLINE DLDLHIGH: 130-159 mg/dL HIGH: 160-189 mg/dL VERY HIGH: >=190 TRIG REF RANGE: BORDERLINE HIGH: 150-199 mg/dL HIGH: 200-499 mg/dL TRIG VERY HIGH: >=500 mg/dL CREA eGFR was calculated using the CKD-EPI 2020 equation. CHOL REF RANGE: BORDERLINE HIGH: 200-239 mg/dL HIGH: >=240 mg/dL Ordering Provider: DAJA PATEL CCA Report Released Date/Time: Aug 29, 2024 01:07 PM Reporting Lab: [place] [id number] Performing Lab: [place] [id number] [facility] PROSTATE SPECIFIC ANTIGEN PROSTATE SPECIFIC AG [MASS/VOLUM E] IN SERUM OR PLASMA 4.35 ng/mL <4.00 - 4.00 08/29 H Specimen Type: SERUM No comment entered. Ordering Provider: DAJA PATEL CCA Report Released Date/Time: Aug 29, 2024 01:07 PM Reporting Lab: [place] [id number] Performing Lab: [place] [id number] [facility] VITAMIN B12 COBALAMIN (VITAMIN B12) [MASS/VOLUM E] IN SERUM OR PLASMA 545 pg/mL 213 - 816 06/15 Specimen Type: PLASMA No comment entered. Ordering Provider: PITA RG Report Released Date/Time: Apr 12, 2024 12:18 PM Reporting Lab: [place] [id number] Performing Lab: [place] [id number] [facility] HEMOGLOBI N A1C HEMOGLOBIN A1C/HEMOGLO BIN.TOTAL IN BLOOD 6.7 3.6 - 5.7 06/15 H Specimen Type: BLOOD Comment: Values obtained from A1C measurement s can vary. For typical A1C assays, a reported value of 7.0 could actually be between 6.72 and 7.28 if measured by a reference method. A reported value of 9.0 could actually be between 8.73 and 9.27. Ref: http://www. ngsp.org/[place] Pdata.asp Ordering Provider: PITA RG Report Released Date/Time: Apr 11, 2024 11:24 AM Reporting Lab: [address] [phone] Performing Lab: [address] [address] [facility] BASIC METABOLIC PANEL UREA NITROGEN [MASS/VOLUM E] IN SERUM OR PLASMA 25 mg/dL 9 - 23 06/15 H Specimen Type: PLASMA No comment entered. Ordering Provider: PITA RG Report Released Date/Time: Apr 11, 2024 11:24 AM Reporting Lab: [address] [address] Performing Lab: [address] [address] [facility] BASIC METABOLIC PANEL CALCIUM [MASS/VOLUM E] IN SERUM OR PLASMA 9.0 mg/dL 8.5 - 10.1 06/15 Specimen Type: PLASMA No comment entered. Ordering Provider: PITA RG Report Released Date/Time: Apr 11, 2024 11:24 AM Reporting Lab: [address] [address] Performing Lab: [address] [address] [facility] BASIC METABOLIC PANEL CREATININE [MASS/VOLUM E] IN SERUM OR PLASMA 1.1 mg/dL 0.7 - 1.3 06/15 Specimen Type: PLASMA No comment entered. Ordering Provider: PITA RG Report Released Date/Time: Apr 11, 2024 11:24 AM Reporting Lab: [address] [address] Performing Lab: [address] [address] [facility] BASIC METABOLIC PANEL CARBON DIOXIDE, TOTAL [MOLES/VOLU ME] IN SERUM OR PLASMA 23 mmol/L 22 - 29 06/15 Specimen Type: PLASMA No comment entered. Ordering Provider: PITA RG Report Released Date/Time: Apr 11, 2024 11:24 AM Reporting Lab: [address] [address] Performing Lab: [address] [address] [facility] BASIC METABOLIC PANEL GLUCOSE [MASS/VOLUM E] IN SERUM OR PLASMA 139 mg/dL 74 - 100 06/15 H Specimen Type: PLASMA No comment entered. Ordering Provider: PITA RG Report Released Date/Time: Apr 11, 2024 11:24 AM Reporting Lab: [address] [address] Performing Lab: [address] [address] [facility] BASIC METABOLIC PANEL SODIUM [MOLES/VOLU ME] IN SERUM OR PLASMA 140 mmol/L 136 - 145 06/15 Specimen Type: PLASMA No comment entered. Ordering Provider: PITA RG Report Released Date/Time: Apr 11, 2024 11:24 AM Reporting Lab: [address] [address] Performing Lab: [address] [address] [facility] BASIC METABOLIC PANEL CHLORIDE [MOLES/VOLU ME] IN SERUM OR PLASMA 109 mmol/L 98 - 107 06/15 H Specimen Type: PLASMA No comment entered. Ordering Provider: PITA RG Report Released Date/Time: Apr 11, 2024 11:24 AM Reporting Lab: [address] [address] Performing Lab: [address] [address] [facility] BASIC METABOLIC PANEL POTASSIUM [MOLES/VOLU ME] IN SERUM OR PLASMA 4.0 mmol/L 3.5 - 5.1 06/15 Specimen Type: PLASMA No comment entered. Ordering Provider: PITA RG Report Released Date/Time: Apr 11, 2024 11:24 AM Reporting Lab: [address] [address] Performing Lab: [address] [address] [facility] BASIC METABOLIC PANEL ANION GAP IN SERUM OR PLASMA 12.0 10 - 20 06/15 Specimen Type: PLASMA No comment entered. Ordering Provider: PITA RG Report Released Date/Time: Apr 11, 2024 11:24 AM Reporting Lab: [address] [address] Performing Lab: [address] [address] [facility] BASIC METABOLIC PANEL GLOMERULAR FILTRATION RATE/1.73 SQ M.PREDICTED [VOLUME RATE/AREA] IN SERUM, PLASMA OR BLOOD BY CREATININE- BASED FORMULA (CKD-EPI 2020) 71.0 mL/min 06/15 Specimen Type: PLASMA No comment entered. Ordering Provider: PITA RG Report Released Date/Time: Apr 11, 2024 11:24 AM Reporting Lab: [address] [address] Performing Lab: [address] [address] [facility] BASIC METABOLIC PANEL UREA NITROGEN [MASS/VOLUM E] IN SERUM OR PLASMA 21 mg/dL 03/03 Specimen Type: PLASMA Comment: CREATININE eGFR was calculated using the CKD-EPI 2020 equation. Ordering Provider: PITA RG Report Released Date/Time: Mar 01, 2024 10:48 AM Reporting Lab: [address] [address] Performing Lab: [address] [address] [facility] BASIC METABOLIC PANEL CALCIUM [MASS/VOLUM E] IN SERUM OR PLASMA 9.4 mg/dL 8.7 - 10.4 03/03 Specimen Type: PLASMA Comment: CREATININE eGFR was calculated using the CKD-EPI 2020 equation. Ordering Provider: PITA RG Report Released Date/Time: Mar 01, 2024 10:48 AM Reporting Lab: [address] [address] Performing Lab: [address] [address] [facility] BASIC METABOLIC PANEL CREATININE [MASS/VOLUM E] IN SERUM OR PLASMA 1.4 mg/dL 0.70 - 1.30 03/03 H Specimen Type: PLASMA Comment: CREATININE eGFR was calculated using the CKD-EPI 2020 equation. Ordering Provider: PITA RG Report Released Date/Time: Mar 01, 2024 10:48 AM Reporting Lab: [address] [address] Performing Lab: [address] [address] [facility] BASIC METABOLIC PANEL CARBON DIOXIDE, TOTAL [MOLES/VOLU ME] IN SERUM OR PLASMA 27 mmol/L 21 - 32 03/03 Specimen Type: PLASMA Comment: CREATININE eGFR was calculated using the CKD-EPI 2020 equation. Ordering Provider: PITA RG Report Released Date/Time: Mar 01, 2024 10:48 AM Reporting Lab: [place] [phone] Performing Lab: [place] [phone] [facility] BASIC METABOLIC PANEL GLUCOSE [MASS/VOLUM E] IN SERUM OR PLASMA 178 mg/dL 74 - 106 03/03 H Specimen Type: PLASMA Comment: CREATININE eGFR was calculated using the CKD-EPI 2020 equation. Ordering Provider: PITA RG Report Released Date/Time: Mar 01, 2024 10:48 AM Reporting Lab: [place] [phone] Performing Lab: [place] [phone] [facility] BASIC METABOLIC PANEL SODIUM [MOLES/VOLU ME] IN SERUM OR PLASMA 141 mmol/L 136 - 148 03/03 Specimen Type: PLASMA Comment: CREATININE eGFR was calculated using the CKD-EPI 2020 equation. Ordering Provider: PITA RG Report Released Date/Time: Mar 01, 2024 10:48 AM Reporting Lab: [place] [phone] Performing Lab: [place] [phone] [facility] BASIC METABOLIC PANEL CHLORIDE [MOLES/VOLU ME] IN SERUM OR PLASMA 105 mmol/L 98 - 107 03/03 Specimen Type: PLASMA Comment: CREATININE eGFR was calculated using the CKD-EPI 2020 equation. Ordering Provider: PITA RG Report Released Date/Time: Mar 01, 2024 10:48 AM Reporting Lab: [address] [address] Performing Lab: [address] [address] [facility] BASIC METABOLIC PANEL POTASSIUM [MOLES/VOLU ME] IN SERUM OR PLASMA 3.8 mmol/L 3.5 - 5.1 03/03 Specimen Type: PLASMA Comment: CREATININE eGFR was calculated using the CKD-EPI 2020 equation. Ordering Provider: PITA RG Report Released Date/Time: Mar 01, 2024 10:48 AM Reporting Lab: [address] [address] Performing Lab: [address] [phone] [place] [address] BASIC METABOLIC PANEL ANION GAP IN SERUM OR PLASMA 12.8 mmol/L 10 - 03/03 Specimen Type: PLASMA Comment: CREATININE eGFR was calculated using the CKD-EPI 2020 equation. Ordering Provider: PITA RG Report Released Date/Time: Mar 01, 2024 10:48 AM Reporting Lab: [address] [address] Performing Lab: [address] [address] [facility] BASIC METABOLIC [facility] GLOMERULAR FILTRATION RATE/1.73 SQ M.PREDICTED [VOLUME RATE/AREA] IN SERUM, PLASMA OR BLOOD BY CREATININE- BASED FORMULA (CKD-EPI 2020) 53 mL/min 03/03 Specimen Type: PLASMA Comment: CREATININE eGFR was calculated using the CKD-EPI 2020 equation. Ordering Provider: PITA RG Report Released Date/Time: Mar 01, 2024 10:48 AM Reporting Lab: [address] [address] Performing Lab: [address] [address] [facility] Vital Signs Combined list of inpatient and outpatient Vital Signs from Department of Defense and Veterans Affairs, ranging from 12 months to all on record, depending upon the facility. Vital Sign Value Date Comments Source SYSTOLIC BLOOD PRESSURE 136 09/05/2024 08:54:47 [facility] DIASTOLIC BLOOD PRESSURE 88 09/05/2024 08:54:47 [facility] PULSE OXIMETRY 98 09/05/2024 08:54:47 [facility] WEIGHT 248 09/05/2024 08:54:47 [facility] BMI 31 kg/m2 09/05/2024 08:54:47 [facility] PAIN 0 09/05/2024 08:54:47 [facility] TEMPERATURE 97.4 09/05/2024 08:54:47 [facility] PULSE 66 09/05/2024 08:54:47 [facility] RESPIRATION 16 09/05/2024 08:54:47 [facility] Encounters Combined list of: 1) Encounters from Department of [facility] Affairs facilities going backup to the last 18 months, not all [place] inpatient encounters are included; 2) Encounters from the Department of [facility] facilities going backup to 280 months. 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 YUNIOR Orozco 12/15 RACHEL Luis [facility] HEARING AID CHECK BOTH EARS [id number] Diagnos is: ICD-10- CM Z46.1 Encount er for fitting and adjustm ent of hearing aid PARAGSNOW 01/20 [facility] HEARING AID CHECK BOTH EARS [id number] Diagnos is: ICD-10- CM H90.3 Sensori neural hearing loss, SATURNINO Monzon ICMaureen S 01/24 [facility] Outpatient Encounter [id number] 01/25 [facility] [place] DIG ASSMT&MGMT 5-10 [id number] Diagnos is: ICD-10- CM Z51.81 Encount er for therape utic drug level monitor PETEY Guerrier 02/15 [facility] [place] En[place] [id number] 02/22 [facility] [place] En[place] [id number] 02/23 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 DEBRIDE NAIL 6 [place] MORE [id number] Diagnos is: ICD-10- CM E11.42 Type 2 diabete s mellitu s with diabeti c polyneu ropathy KAVIN,KWAME A E 06/15 [facility] MTMS BY PHARM ADDL 15 MIN [id number] Diagnos is: ICD-10- CM E11.9 Type 2 diabete s mellitu s without complic ations IFRAH,REBECC A LAVELL 06/17 [facility] Outpatient Encounter [id number] 07/04 [facility] [place] En[place] [id number] 08/09 [facility] MTMS BY PHARM ADDL 15 MIN [id number] Diagnos is: ICD-10- CM E11.9 Type 2 diabete s mellitu s without complic ations IFRAH,REBECC A LAVELL 08/30 [facility] QNHP OL DIG ASSMT&MGMT 5-10 [id number] Diagnos is: ICD-10- CM Z51.81 Encount er for therape utic drug level monitor NATALYA Wang 08/30 [facility] [place] En[place] [id number] 09/05 [facility] [place] En[place] [id number] 09/05 [facility] OFFICE O/P EST MOD 30 MIN [id number] [id number] Diagnos is: ICD-10- CM I48.91 Unspeci fied atrial fibrill ation JOSE ANGEL PATEL 09/05 [facility] DEBRIDE NAIL 6 [place] MORE [id number] [id number] Diagnos is: ICD-10- CM E11.42 Type 2 diabete s mellitu s with diabeti c polyneu ropathy KWAME VALE 09/12 [facility] OFFICE O/P EST MOD 30 MIN [id number] Diagnos is: ICD-10- CM E11.42 Type 2 diabete s mellitu s with diabeti c polyneu ropathy YUNIOR GONZALEZ 12/12 [facility] MTMS BY PHARM ADDL 15 MIN [id number] [id number] Diagnos is: ICD-10- CM E11.9 Type 2 diabete s mellitu s without complic ations IFRAH,REBECC A LAVELL 02/27 RACHEL Luis [facility] Outpatient Encounter [id number] 03/01 [facility] OFFICE O/P EST LOW 20 MIN [id number] Diagnos is: ICD-10- CM 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 Social History Type Response Date Comment Sourc e Tobacco smoking status NHIS VA-TOBACCO NEVER USED 09/05/2024 [facility] History of tobacco use HI-TOBACCO NEVER USED 08/31/2023 [facility] History of tobacco use VA-TOBACCO NEVER USED 08/27/2022 [facility] History of tobacco use VA-TOBACCO NEVER USED 08/26/2021 [facility] History of tobacco use VA-TOBACCO NEVER USED 08/23/2018 [facility] History of tobacco use VA-TOBACCO NEVER USED 08/09/2018 [facility] History of tobacco use LIFETIME NON-USER OF TOBACCO 09/01/2016 [facility]ONNE[facility] Plan of Care List of future care activities from Department of Veterans Affairs facilities. Additional future care activities may be listed in the Assessment and Plan section. Date/Time Care Activity Care Activity Detail Facili ty 06/22/2025 AMBULATORY - SURGERY AMBULATORY - SURGERY [facility]
--- OUTSIDE RECORDS SUMMARY | 2025-05-15 09:40 | XMS_ITS | Encounter Summary ---
Author Organization [facility] Address [address] [place] [address] Care Team Providers Care Watch Repairer Name Role Phone Patti Thomas MD Primary Care Provider [phone] Reason for Referral * (Routine) - Pending Review Specialty Diagnoses / Procedures Referred By Contac t Referred To Contact Diagnoses PAF (paroxysmal atrial fibrillation) (CMS/HCC) Atrial fibrillation status post cardioversion (CMS/HCC) Procedures ECG 12 lead unit performed Kenn Koenig CNP [address] [place] [address] Phone: tel: fax: Referral ID Status Reason Start Date Expiration Date V isits Requested Visits Authorized [id number] Pending Review 05/15/2025 05/15/2026 1 1 Encounter Details Date Type Department Care Team (Late st Contact Info) Description 05/15/2025 9:40 AM EDT Follow-Up [facility] [address] [place] [id number] Kenn Koenig CNP [address] [place] [address] PAF (paroxysmal atrial fibrillation) (CMS/HCC); Atrial fibrillation status post cardioversion (CMS/HCC); Primary hypertension; Mixed hyperlipidemia Social History Tobacco Use Types Packs/Day Years [...] Sign Reading Time Taken Comments Blood Pressure 157/77 05/15/2025 9:32 AM EDT Pulse 48 05/15/2025 9:32 AM EDT Temperature - - Respiratory Rate - - Oxygen Saturation 98% 05/15/2025 9:32 AM EDT Inhaled Oxygen Concentration - - Weight 103 kg (228 lb) 05/15/2025 9:32 AM EDT Height 193 cm (6' 4 ) 05/15/2025 9:32 AM EDT Body Mass Index 27.75 05/15/2025 9:32 AM EDT documented in this encounter Progress Notes * Kenn Koenig, ANALYSIS ENGINEER - 05/15/2025 9:40 AM EDT Images from the original note were not included. SUBJECTIVE Reason for Visit: Maikel Tomlin is a 74 y.o. year old male patient being seen for follow-up visit status post direct cardioversion. HPI: Maikel Tomlin is a 74 y.o. year old male with significant medical history of paroxysmal atrial fibrillation, previously treated with pulmonary vein isolation on 11/27/2020 and direct current cardioversion (DCCV) on 01/09/2021, most recently underwent successful DCCV on 04/10/[address] Eckert with anglican of sinus rhythm. His medical history is also notable for hypertension and hyperlipidemia. 05/15/2025 office visit: Patient seen and evaluated in the office today, he is accompanied by his . He denies chest pain, shortness of breath, palpitations, lightheaded dizziness. He does endorse ankle swelling. On exam he has +1-2 bilateral ankle swelling. He has brought in a very detailed blood pressure log with systolics ranging from 140s to 150s. Twelve-lead ECG revealed sinus bradycardia with history AV block ventricular rate of 47 bpm; will reduce metoprolol succinate to 25 mg daily from 50 mg daily. I will add spironolactone 12.5 mg daily 03/21/25 office visit (Dr. Eckert): Patient is here today for a follow up from [facility] ER. Patient states he was in the ER for pneumonia int he LLL, while in the ER patient was told he was back in A- Fib. Patient has no cardiac complaints. Patient has a follow up with PCP 03/23/2025. 11/22/24: Patient here for 6 mo follow up [...] Norvasc 10mg every day. Pulse check: SR. 05/24/24: Patient here for 6 mo follow up [...] on Jardiance. pulse check today shows sinus rhythm. 10/26/23: he is here for 6-month follow-up He stopped his flecainide 04/2023 has been feeling well with no complaints of chest pain, shortness of breath, RAUSCH, palpitations, lightness Medical History[1] Surgical History[2] Problem List[3] family history includes Cancer in his mother; pacemaker in his father. Social History[4] OBJECTIVE Visit Vitals Smoking Status Never Physical Exam Constitutional: General Appearance: well-developed, appears stated age. Level of Distress: no acute distress. Neck: Jugular Veins: normal jugular venous pressure. Lungs: Auscultation: no rales or rhonchi and normal breath sounds. Cardiovascular: Rate And Rhythm: regular Heart Sounds: normal S1 and s2; Systolic Murmur: not heard. Diastolic Murmur: not heard. Extremities: +1-2 ankle swelling. Peripheral Pulses: Pulses: full and equal in all extremities except if noted. Abdomen: Inspection and Palpation: non distended or tender and soft. Musculoskeletal: Inspection: no joint tenderness or swelling. Neurologic: Gait: normal gait. Psychiatric: Mental Status: alert and normal affect. Skin: Inspection and Palpation: warm and dry. Allergies: Allergies[5] Outpatient Medications: Current Outpatient Medications Medication Instructions amiodarone (Pacerone) 200 mg tablet Take 2 tablets (400 mg) by mouth two times daily for 14 days, THEN 1 tablet (200 mg) once daily as directed. amLODIPine (Norvasc) 10 mg tablet amlodipine 10 mg tablet TAKE ONE TABLET BY MOUTH DAILY apixaban (Eliquis) 5 mg tablet Eliquis 5 mg tablet TAKE ONE TABLET BY MOUTH TWICE A DAY cloNIDine (CATAPRES) 0.1 mg, oral, 2 times daily cloNIDine (CATAPRES) 0.2 mg, oral, 2 times daily empagliflozin (JARDIANCE) 12.5 mg, oral, Daily fosinopril (Monopril) 40 mg tablet fosinopril 40 mg tablet TAKE ONE TABLET BY MOUTH DAILY FOR 90 DAYS lisinopril 40 mg, oral, Daily metFORMIN (GLUCOPHAGE) 500 mg, oral, Daily with breakfast metoprolol succinate XL (Toprol-XL) 50 mg 24 [...] TABLET BY MOUTH DAILY FOR 90 DAYS Recent Labs: Admission on 04/10/2025, Discharged on 04/10/2025 Component Date Value Ventricular Rate 04/10/2025 54 QRS DURATION 04/10/2025 88 QT Interval 04/10/2025 492 QTC CALCULATION(BAZETT) 04/10/2025 466 R-[place] 04/10/2025 -1 T Wave [place] 04/10/2025 -3 Ventricular Rate 04/10/2025 44 Atrial Rate 04/10/2025 44 CA Interval 04/10/2025 220 QRS DURATION 04/10/2025 94 QT Interval 04/10/2025 484 QTC CALCULATION(BAZETT) 04/10/2025 413 P [place] 04/10/2025 22 R-[place] 04/10/2025 3 T Wave [place] 04/10/2025 5 Labs 04/07/2025: Potassium 3.6, magnesium 2.1 Labs 03/18/2025: WBC 13.7, hemoglobin 16.1, platelets 184 Sodium 141, potassium 3.4, BUN 26, creatinine 1.31, EGFR 53, glucose 169, calcium 9.4 I have personally reviewed and anaylzed the following laboratory results above. These findings havebeen analyzed in the context of the patient's clinical presentation. Cardiovascular Diagnostic Studies: DIRECT CARDIOVERSION PROCEDURE NOTE 04/10/2025 Date: 04/10/2025. Type of procedure: DC Cardioversion. [...] consider ablation. Ten Eckert MD Cardiac Electrophysiology TTE 11/04/2023: 12 Lead ECG: Encounter Date: 04/10/25 ECG 12 lead Result Value Ventricular Rate 44 Atrial Rate 44 CA Interval 220 QRS DURATION 94 QT Interval 484 QTC CALCULATION(BAZETT) 413 P [place] 22 R-[place] 3 T Wave [place] 5 Impression Marked sinus bradycardia with 1st degree A-V block Nonspecific T wave abnormality Abnormal ECG When compared with ECG of 10-APR-2025 07:21, Sinus rhythm has replaced Atrial fibrillation Confirmed by Dora SHERWOOD, MONICO Herndon ([id number]) on 04/10/2025 10:52:37 AM I have personally reviewed and analyzed all available cardiac diagnostic tests and imaging reports.Findings have been analyzed in the context of the patient's clinical status. Assessment and Plan #Paroxysmal A-fib [id number] = 3 Previously treated with pulmonary vein isolation on 11/27/2020 and direct current cardioversion (DCCV) on 01/09/2021, most recently underwent successful DCCV on 04/10/[address] Eckert with anglican of sinus rhythm 12 ECG today 47 bpm with first-degree AV block - Continue amiodarone 200 mg daily - On metoprolol succinate 50 mg daily ---> will reduce to 25 mg daily - Continue apixaban 5 mg twice daily #Hypertension Blood pressure today is 157/77, HR 48 Elevated Blood pressure at home is 140s 150s systolic Of note has allergy to thiazides - Continue Fosinopril 40 mg daily - Continue amlodipine 10 mg daily - Continue clonidine 0.2 mg twice daily - Will add spironolactone 12.5 mg daily #Hyperlipidemia Most recent lipid panel reviewed, 08/29/2024: LDL 91, HDL 35, triglycerides 57, total cholesterol 135 Stable - Continue simvastatin 40 mg daily Plan Overview: Twelve-lead ECG Follow-up in 4-6 weeks Will add spironolactone 12.5 mg daily ---> BMP in one week Will reduce metoprolol succinate to 25 mg daily from 50 mg No follow-ups on file. Kenn Koenig, 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 Tinea unguium CPAP (continuous positive airway pressure) dependence Dermatitis Encounter for fitting and adjustment of hearing aid Other hammer toe(s) (acquired), left foot Knee joint stiffness, bilateral Type 2 diabetes mellitus without complications (CMS/HCC) PAF (paroxysmal atrial fibrillation) (CMS/HCC) [4] Social History Tobacco Use Smoking status: Never Smokeless tobacco: Never Substance Use Topics Alcohol use: Not Currently Drug use: Never [5] Allergies Allergen Reactions Adhesive Tape-Silicones Hydrochlorothiazide Unknown Penicillins Other, Rash and Unknown documented in this encounter Plan of Treatment Upcoming Encounters Date Type Department Care Team (Late st Contact Info) Description 07/03/2025 9:40 AM EDT Office Visit [facility] [address] [place] [address] Kenn Koenig CNP [address] [place] [address] Scheduled Orders Name Type Priority Associated Diagnoses Orde r Schedule Basic metabolic panel Lab Routine Primary hypertension Expected: 05/22/2025 (Approximate), Expires: 05/15/2026 documented as of this encounter Procedures Procedure Name Priority Date/Time Associated Diagnosis Comments ECG 12 LEAD UNIT PERFORMED Routine 05/15/2025 9:31 AM EDT PAF (paroxysmal atrial fibrillation) (CMS/HCC) Atrial fibrillation status post cardioversion ([facility]) documented in this encounter Results * ECG 12 lead unit performed (05/15/2025 9:31 AM EDT) us Kenn Koenig CNP ECG ORDERABLES Final Result documented in this encounter Visit Diagnoses Diagnosis PAF (paroxysmal atrial fibrillation) ([facility]) Atrial fibrillation Atrial fibrillation status post cardioversion ([facility]) Primary hypertension Unspecified essential hypertension Mixed hyperlipidemia documented in this encounter Care Teams Watch Repairer Relationship Specialty Start Date End Date Patti Thomas MD [address] PCP - General 11/05/22 documented as of this encounter
--- OUTSIDE RECORDS SUMMARY | 2025-05-22 08:50 | XMS_ITS | Clinical Summary ---
Author Organization [facility] Address [facility] [place] [address] Care Team Providers Care Mattress Stripper Name Role Phone Frank Griffith MD Unavailable [phone] Allergies Active Allergy Reactions Criticality Noted [...] N ot on file 10/16/2020 Data from: [email or web address] Last address used for calculation Not [...] 2024 Advance Directive Discussion 11/09/2024 Influenza Vaccine (#1) 2025 08/24/2019, 2017 RSV Vaccine (1 - 1-dose 75+ series) 2025 Insurance MEDICARE [place] [id number] [employer] SUPPLEMENT Care Teams Mattress Stripper Relationship Specialty Start Date End Date Frank Griffith MD [address] [place] [address] Referring Urology 07/26/19
[2025-05-22 10:10] LABS: Anion Gap 15.4; Blood Urea Nitrogen 25.0 mg/dL (7.0-18.0); Calcium 8.9 mg/dL (8.5-10.1); Carbon Dioxide 26.7 mmol/L (21.0-32.0); Chloride 105 mmol/L (98-107); Estimated GFR (African America >60 (>=60 mL/min/1.73m^2); Estimated GFR (Non-African Ame 59 (>=60 mL/min/1.73m^2); Glucose 253 mg/dL (74-106); Potassium 4.1 mmol/L (3.5-5.1); Sodium 143 mmol/L (136-145)
== END 2025-05-22 08:48 | disposition home or self-care (01) ==
LOC: LAB 08:49
PROVIDERS: PCP Internal Medicine
DX: I10 Essential (primary) hypertension (principal)
CPT/HCPCS: 36415; 80048

== ENCOUNTER 2025-05-31 09:09 | Outpatient (OUT) | payer MEDICARE, OTHER, SELFPAY ==
--- OUTSIDE RECORDS SUMMARY | 2025-04-19 09:36 | XMS_ITS | Continuity of Care Document ---
Author Name [facility] Organization [facility] Care Team Providers Care Regulatory Compliance Engineer Name Role Phone [facility] Unavailable Unavailable Problems Combined list of problems from Department of [facility] and [facility] facilities. It does not include entries that were removed or entered in error. Problem Status Onset Date Problem Type Date of Resolution Comments Source Acquired hammer toe of left foot Active Condition [facility] AF- Atrial Fibrillation ([id number] [id number]) Active Condition [facility] Benign essential hypertension Active Condition [facility] Callus Active Condition [facility] Chronic kidney disease stage 3A Active Condition [facility] Diabetes mellitus Active Condition [facility] Diabetic peripheral neuropathy associated with type 2 diabetes mellitus Active Condition [facility] Exposure to Potentially Hazardous Substance ([facility] [id number]) Active Condition [facility] Hyperlipidemia Active Condition [facility] Hypokalemia Active Condition [facility] Kidney stone Active Condition [facility] Onychomycosis of toenails Active Condition [facility] Sensorineural hearing loss, bilateral Active Condition [facility] Sleep apnea Active Condition [facility] Diagnosis: ICD-10-CM E11.42 Type 2 diabetes mellitus with diabetic polyneuropathy Active Diagnosis [facility] Diagnosis: ICD-10-CM E11.9 Type 2 diabetes mellitus without complications Active Diagnosis [facility] Diagnosis: ICD-10-CM I48.91 Unspecified atrial fibrillation Active Diagnosis [facility] Diagnosis: ICD-10-CM Z51.81 Encounter for therapeutic drug level monitoring Active Diagnosis [facility] Diagnosis: ICD-10-CM Z46.1 Encounter for fitting and adjustment of hearing aid Active Diagnosis [facility] Diagnosis: ICD-10-CM H90.3 Sensorineural hearing loss, bilateral Active Diagnosis [facility] Medications Combined list of outpatient medications from Department of [facility] and [facility] facilities.Medications provided include 1) outpatient medications from the last 15 months, and 2) patient-reported medications. Medication Details Route Status Patient Instructions Prescription Expires Prescription Number Last Dispense Date Ordering Provider Order Date Order Qty Source AMLODIPINE BESYLATE 10MG TAB TAKE ONE TABLET BY MOUTH EVERY DAY ORAL ACTIVE Bashir GONZALEZ 2017 [facility] APIXABAN 5MG TAB TAKE ONE TABLET BY MOUTH TWICE A DAY DIRECTED BY THE [facility] EXT.6106 7) ORAL ACTIVE 07/05/2025 [id number] Franko CORADO 2023 180 [facility] APIXABAN 5MG TAB TAKE ONE TABLET BY MOUTH TWICE A DAY DIRECTED BY THE [facility] EXT.6106 7) ORAL DISCONT INUED 08/14/2024 [id number] YUSUF AZAR 2022 180 [facility] CLONIDINE HCL 0.2MG TAB TAKE ONE TABLET BY MOUTH TWICE A DAY ORAL ACTIVE Bashir GONZALEZ 2024 [facility] EMPAGLIFLOZ IN 25MG TAB TAKE ONE-HALF TABLET BY MOUTH EVERY DAY FOR TYPE 2 DIABETES MELLITUS ORAL ACTIVE 02/28/2026 [id number] IFRAH,REBEC CA LAVELL 2024 45 [facility] EMPAGLIFLOZ IN 25MG TAB TAKE ONE-HALF TABLET BY MOUTH EVERY DAY FOR TYPE 2 DIABETES MELLITUS ORAL DISCONT INUED 09/06/2025 [id number] IWONA PATEL 2023 45 [facility] EMPAGLIFLOZ IN 25MG TAB TAKE ONE-HALF TABLET BY MOUTH EVERY DAY FOR TYPE 2 DIABETES MELLITUS ORAL DISCONT INUED 06/18/2025 [id number] IFRAH,REBEC CA LAVELL 2023 45 [facility] EMPAGLIFLOZ IN 25MG TAB TAKE ONE-HALF TABLET BY MOUTH EVERY DAY FOR TYPE 2 DIABETES MELLITUS ORAL DISCONT INUED (EDIT) 04/12/2025 [id number] IFRAH,REBEC CA LAVELL 2023 30 [facility] FOSINOPRIL NA 40MG TAB TAKE ONE TABLET BY MOUTH EVERY DAY ORAL ACTIVE Bashir GONZALEZ 2016 [facility] METFORMIN HCL 500MG TAB TAKE ONE TABLET BY MOUTH WITH DINNER ORAL ACTIVE IFRAH,REBEC CA LAVELL 2023 [facility] METOPROLOL SUCCINATE 50MG TAB,SA TAKE ONE TABLET BY MOUTH EVERY DAY ORAL ACTIVE IFRAH,REBEC CA LAVELL 2023 [facility] OMEPRAZOLE 20MG CAP,EC TAKE 1 CAPSULE BY MOUTH EVERY MORNING, ON AN EMPTY STOMACH ORAL ACTIVE AMANDA,RE YAMILETH A 2020 [facility] POTASSIUM CHLORIDE 20MEQ TAB,SA (DISPERSIBL E) TAKE ONE TABLET BY MOUTH THREE TIMES A DAY ORAL ACTIVE AMANDA,RE YAMILETH A 2023 [facility] SIMVASTATIN 40MG TAB TAKE ONE TABLET BY MOUTH AT BEDTIME ORAL ACTIVE IFRAH,REBEC CA LAVELL 2024 [facility] TERBINAFINE HCL 250MG TAB TAKE ONE TABLET BY MOUTH EVERY DAY FOR ATHLETE' S FOOT ORAL 01/11/2025 [id number] Bashir GONZALEZ 2024 14 [facility] Allergies, Adverse Reactions, Alerts Combined list of allergies from Department of Defense and [facility] facilities. It does not include entries that were removed or entered in error. Substance Category Reaction Severity Reaction type Status Date Reported Comments Source ADHESIVE TAPE Propensity to adverse reaction (finding) Erythema active 1 [facility] HCTZ HYDROCHLOROTH IAZIDE Propensity to adverse reactions to drug (finding) Cold sweat active 1 [facility] PENICILLIN Propensity to adverse reactions to drug (finding) active 6 [facility] Immunizations Combined list of available immunizations from the Department of Defense and Veterans Affairs facilities. Immunization Series Date Given Administered By Site Reaction Lot Number CVX Code Drug Structural Manager Status Comments Source INFLUENZA, ADJUVANTED, TRIVALENT, PF 6 2023 168 complet ed HISTORICA L INFORMATI ON - FROM OTHER REGISTRY, [facility] INFLUENZA VACCINE, QUADRIVALENT, ADJUVANTED 5 2022 205 complet ed HISTORICA L INFORMATI ON - FROM OTHER REGISTRY, [facility] INFLUENZA, UNSPECIFIED FORMULATION 2021 88 complet ed [facility] INFLUENZA, HIGH DOSE SEASONAL 4 2021 135 complet ed HISTORICA L INFORMATI ON - FROM OTHER REGISTRY, [facility] INFLUENZA VACCINE, QUADRIVALENT, ADJUVANTED 2020 205 complet ed [facility] COVID-19 (PFIZER), MRNA, LNP-S, PF, 30 MCG/0.3 ML DOSE 2 2020 208 complet ed [facility] COVID-19 (PFIZER), MRNA, LNP-S, PF, 30 MCG/0.3 ML DOSE 1 2020 208 complet ed [facility] INFLUENZA, TRIVALENT, ADJUVANTED 3 2019 168 complet ed HISTORICA L INFORMATI ON - FROM OTHER REGISTRY, [facility] INFLUENZA, TRIVALENT, ADJUVANTED 2 2018 168 complet ed [facility] INFORMATI ON - FROM OTHER REGISTRY, [facility] INFLUENZA, TRIVALENT, ADJUVANTED 2018 168 complet ed [facility] INFLUENZA, TRIVALENT, ADJUVANTED 1 2017 168 complet ed HISTORICA L INFORMATI ON - FROM OTHER REGISTRY, [facility] TDAP 2016 115 complet ed [facility] [...] Feb 16, 2024 02:04 PM Reporting Lab: [place] [id number] Performing Lab: [place] [id number] CREATININ E (W EGFR) GLOMERULAR FILTRATION [...] Feb 16, 2024 02:04 PM Reporting Lab: [place] [id number] Performing Lab: [address] HEPATIC FUNCTION PANEL ALBUMIN [MASS/VOLUM E] [...] Feb 16, 2024 02:04 PM Reporting Lab: [place] [id number] Performing Lab: [address] [address] [facility] HEPATIC FUNCTION PANEL ALKALINE PHOSPHATASE [ENZYMATIC ACTIVITY/VO [...] Feb 16, 2024 02:04 PM Reporting Lab: [place] [id number] Performing Lab: [place] [id number] [place] [address] HEPATIC FUNCTION PANEL ALANINE AMINOTRANSF ERASE [ENZYMATIC [...] Feb 16, 2024 02:04 PM Reporting Lab: [place] [id number] Performing Lab: [place] [id number] [facility] HEPATIC FUNCTION PANEL ASPARTATE AMINOTRANSF ERASE [ENZYMATIC [...] Feb 16, 2024 02:04 PM Reporting Lab: [place] [id number] Performing Lab: [place] [id number] [place] [address] HEPATIC FUNCTION PANEL BILIRUBIN.D IRECT [MASS/VOLUM E] [...] Feb 16, 2024 02:04 PM Reporting Lab: [place] [id number] Performing Lab: [place] [id number] [facility] HEPATIC FUNCTION PANEL PROTEIN [MASS/VOLUM E] IN [...] Feb 16, 2024 02:04 PM Reporting Lab: [place] [id number] Performing Lab: [address] HEPATIC FUNCTION PANEL BILIRUBIN.T OTAL [MASS/VOLUM [...] Feb 16, 2024 02:04 PM Reporting Lab: [place] [id number] Performing Lab: [place] [id number] CBC LEUKOCYTES [#/VOLUME] IN BLOOD BY AUTOMATED COUNT 6.7 10*3/u L 3.6 - 11.0 08/29 Specimen Type: BLOOD No comment entered. Ordering Provider: KAMRAN PALACIOS Report Released Date/Time: Feb 16, 2024 02:04 PM Reporting Lab: [place] [id number] Performing Lab: [address] CBC ERYTHROCYTE S [#/VOLUME] IN BLOOD BY AUTOMATED COUNT 4.45 10*6/u L 4.47 - 5.83 08/29 L Specimen Type: BLOOD No comment entered. Ordering Provider: KAMRAN PALACIOS Report Released Date/Time: Feb 16, 2024 02:04 PM Reporting Lab: [place] [id number] Performing Lab: [place] [id number] [place] [address] CBC HEMOGLOBIN [MASS/VOLUM E] IN BLOOD 14.0 g/dL 13.6 - 17.4 08/29 Specimen Type: BLOOD No comment entered. Ordering Provider: KAMRAN PALACOIS Report Released Date/Time: Feb 16, 2024 02:04 PM Reporting Lab: [place] [id number] Performing Lab: [place] [id number] [place] [address] CBC HEMATOCRIT [VOLUME FRACTION] OF BLOOD BY AUTOMATED COUNT 41.9 40.0 - 51.0 08/29 Specimen Type: BLOOD No comment entered. Ordering Provider: KAMRAN PALACIOS Report Released Date/Time: Feb 16, 2024 02:04 PM Reporting Lab: [place] [id number] Performing Lab: [place] [id number] CBC MCV [ENTITIC VOLUME] BY AUTOMATED COUNT 94.0 fL 80.0 - 96.0 08/29 Specimen Type: BLOOD No comment entered. Ordering Provider: KAMRAN PALACIOS Report Released Date/Time: Feb 16, 2024 02:04 PM Reporting Lab: [place] [id number] Performing Lab: [place] [id number] CBC MCH [ENTITIC MASS] BY AUTOMATED COUNT 31.4 pg 27.0 - 31.0 08/29 H Specimen Type: BLOOD No comment entered. Ordering Provider: KAMRAN PALACIOS Report Released Date/Time: Feb 16, 2024 02:04 PM Reporting Lab: [place] [id number] Performing Lab: [place] [id number] [facility] CBC MCHC [MASS/VOLUM E] BY AUTOMATED COUNT 33.4 g/dL 31.5 - 36.5 08/29 Specimen Type: BLOOD No comment entered. Ordering Provider: KAMRAN PALACIOS Report Released Date/Time: Feb 16, 2024 02:04 PM Reporting Lab: [place] [id number] Performing Lab: [place] [id number] CBC PLATELETS [#/VOLUME] IN BLOOD BY AUTOMATED COUNT 185 10*3/u L 150 - 400 08/29 Specimen Type: BLOOD No comment entered. Ordering Provider: KAMRAN PALACIOS Report Released Date/Time: Feb 16, 2024 02:04 PM Reporting Lab: [place] [id number] Performing Lab: [address] CBC LYMPHOCYTES /100 LEUKOCYTES IN BLOOD BY AUTOMATED COUNT 25.3 21.0 - 51.0 08/29 Specimen Type: BLOOD No comment entered. Ordering Provider: KAMRAN PALACIOS Report Released Date/Time: Feb 16, 2024 02:04 PM Reporting Lab: [place] [id number] Performing Lab: [place] [id number] CBC MONOCYTES/1 00 LEUKOCYTES IN BLOOD BY AUTOMATED COUNT 11.1 4.0 - 8.0 08/29 H Specimen Type: BLOOD No comment entered. Ordering Provider: KAMRAN PALACIOS Report Released Date/Time: Feb 16, 2024 02:04 PM Reporting Lab: [place] [id number] Performing Lab: [place] [id number] CBC NUCLEATED ERYTHROCYTE S/100 LEUKOCYTES [RATIO] IN BLOOD BY MANUAL COUNT 0.2 /100{W BCs} 08/29 Specimen Type: BLOOD No comment entered. Ordering Provider: KAMRAN PALACIOS Report Released Date/Time: Feb 16, 2024 02:04 PM Reporting Lab: [place] [id number] Performing Lab: [place] [id number] CBC ERYTHROCYTE DISTRIBUTIO N WIDTH [RATIO] BY AUTOMATED COUNT 12.7 11.2 - 15.8 08/29 Specimen Type: BLOOD No comment entered. Ordering Provider: KAMRAN PALACIOS Report Released Date/Time: Feb 16, 2024 02:04 PM Reporting Lab: [place] [id number] Performing Lab: [place] [id number] CBC NEUTROPHILS /100 LEUKOCYTES IN BLOOD BY AUTOMATED COUNT 61.7 54.0 - 78.0 08/29 Specimen Type: BLOOD No comment entered. Ordering Provider: KAMRAN PALACIOS Report Released Date/Time: Feb 16, 2024 02:04 PM Reporting Lab: [place] [id number] Performing Lab: [place] [id number] CBC EOSINOPHILS /100 LEUKOCYTES IN BLOOD BY AUTOMATED COUNT 1.3 0.0 - 3.0 08/29 Specimen Type: BLOOD No comment entered. Ordering Provider: KAMRAN PALACIOS Report Released Date/Time: Feb 16, 2024 02:04 PM Reporting Lab: [place] [id number] Performing Lab: [place] [id number] CBC BASOPHILS/1 00 LEUKOCYTES IN BLOOD BY AUTOMATED COUNT 0.6 0.0 - 3.0 08/29 Specimen Type: BLOOD No comment entered. Ordering Provider: KAMRAN PALACIOS Report Released Date/Time: Feb 16, 2024 02:04 PM Reporting Lab: [place] [id number] Performing Lab: [place] [id number] CBC LYMPHOCYTES [#/VOLUME] IN BLOOD BY AUTOMATED COUNT 1.7 10*3/u L 0.8 - 5.0 08/29 Specimen Type: BLOOD No comment entered. Ordering Provider: KAMRAN PALACIOS Report Released Date/Time: Feb 16, 2024 02:04 PM Reporting Lab: [place] [id number] Performing Lab: [place] [id number] [facility] CBC NEUTROPHILS [#/VOLUME] IN BLOOD 4.1 10*3/u L 1.9 - 8.6 08/29 Specimen Type: BLOOD No comment entered. Ordering Provider: KAMRAN PALACIOS Report Released Date/Time: Feb 16, 2024 02:04 PM Reporting Lab: [place] [id number] Performing Lab: [place] [id number] CBC BASOPHILS [#/VOLUME] IN BLOOD BY AUTOMATED COUNT 0.0 10*3/u L 0.0 - 0.3 08/29 Specimen Type: BLOOD No comment entered. Ordering Provider: KAMRAN APLACIOS Report Released Date/Time: Feb 16, 2024 02:04 PM Reporting Lab: [place] [id number] Performing Lab: [place] [phone] CBC MONOCYTES [#/VOLUME] IN BLOOD BY AUTOMATED COUNT 0.7 10*3/u L 0.1 - 0.9 08/29 Specimen Type: BLOOD No comment entered. Ordering Provider: KAMRAN PALACIOS Report Released Date/Time: Feb 16, 2024 02:04 PM Reporting Lab: [place] [id number] Performing Lab: [place] [id number] CBC EOSINOPHILS [#/VOLUME] IN BLOOD BY AUTOMATED COUNT 0.1 10*3/u L 0.0 - 0.3 08/29 Specimen Type: BLOOD No comment entered. Ordering Provider: KAMRAN PALACIOS Report Released Date/Time: Feb 16, 2024 02:04 PM Reporting Lab: [place] [id number] Performing Lab: [place] [phone] CBC PLATELET MEAN VOLUME [ENTITIC VOLUME] IN BLOOD BY AUTOMATED COUNT 9.4 fL 7.4 - 11.4 08/29 Specimen Type: BLOOD No comment entered. Ordering Provider: KAMRAN PALACIOS Report Released Date/Time: Feb 16, 2024 02:04 PM Reporting Lab: [place] [id number] Performing Lab: [place] [phone] LIPID PROFILE CHOLESTEROL [MASS/VOLUM E] IN [...] Aug 29, 2024 01:07 PM Reporting Lab: [place] [id number] Performing Lab: [place] [phone] LIPID PROFILE CHOLESTEROL IN LDL [MASS/VOLUM [...] Aug 29, 2024 01:07 PM Reporting Lab: [place] [id number] Performing Lab: [place] [phone] LIPID PROFILE CHOLESTEROL IN HDL [MASS/VOLUM [...] Aug 29, 2024 01:07 PM Reporting Lab: [place] [id number] Performing Lab: [place] [phone] LIPID PROFILE TRIGLYCERID E [MASS/VOLUM E] [...] Aug 29, 2024 01:07 PM Reporting Lab: [place] [id number] Performing Lab: [place] [phone] TSH THYROTROPIN [UNITS/VOLU ME] IN SERUM [...] Aug 29, 2024 01:07 PM Reporting Lab: [place] [id number] Performing Lab: [place] [id number] [facility] PROSTATE SPECIFIC ANTIGEN PROSTATE SPECIFIC AG [MASS/VOLUM E] IN SERUM OR PLASMA 4.35 ng/mL <4.00 - 4.00 08/29 H Specimen Type: SERUM No comment entered. Ordering Provider: DAJA PATEL CCA Report Released Date/Time: Aug 29, 2024 01:07 PM Reporting Lab: [place] [id number] Performing Lab: [place] [id number] [facility] VITAMIN B12 COBALAMIN (VITAMIN B12) [MASS/VOLUM E] IN SERUM OR PLASMA 545 pg/mL 213 - 816 06/15 Specimen Type: PLASMA No comment entered. Ordering Provider: PITA RG Report Released Date/Time: Apr 12, 2024 12:18 PM Reporting Lab: [place] [phone] Performing Lab: [place] [id number] [facility] HEMOGLOBI N A1C HEMOGLOBIN A1C/HEMOGLO BIN.TOTAL IN [...] Apr 11, 2024 11:24 AM Reporting Lab: [address] [address] Performing Lab: [address] [address] [facility] BASIC METABOLIC PANEL UREA NITROGEN [MASS/VOLUM E] IN SERUM OR PLASMA 25 mg/dL 9 - 23 06/15 H Specimen Type: PLASMA No comment entered. Ordering Provider: PITA RG Report Released Date/Time: Apr 11, 2024 11:24 AM Reporting Lab: [address] [address] Performing Lab: [address] [address] [facility] BASIC METABOLIC PANEL CALCIUM [MASS/VOLUM E] IN SERUM OR PLASMA 9.0 mg/dL 8.5 - 10.1 06/15 Specimen Type: PLASMA No comment entered. Ordering Provider: PITA RG Report Released Date/Time: Apr 11, 2024 11:24 AM Reporting Lab: [address] [address] Performing Lab: [address] [address] [facility] BASIC METABOLIC PANEL CREATININE [MASS/VOLUM E] IN SERUM OR PLASMA 1.1 mg/dL 0.7 - 1.3 06/15 Specimen Type: PLASMA No comment entered. Ordering Provider: PITA RG Report Released Date/Time: Apr 11, 2024 11:24 AM Reporting Lab: [address] [address] Performing Lab: [address] [address] [facility] BASIC METABOLIC PANEL CARBON DIOXIDE, TOTAL [MOLES/VOLU ME] IN SERUM OR PLASMA 23 mmol/L 22 - 29 06/15 Specimen Type: PLASMA No comment entered. Ordering Provider: PITA RG Report Released Date/Time: Apr 11, 2024 11:24 AM Reporting Lab: [address] [address] Performing Lab: [address] [address] [facility] BASIC METABOLIC PANEL GLUCOSE [MASS/VOLUM E] IN SERUM OR PLASMA 139 mg/dL 74 - 100 06/15 H Specimen Type: PLASMA No comment entered. Ordering Provider: PITA RG Report Released Date/Time: Apr 11, 2024 11:24 AM Reporting Lab: [address] [address] Performing Lab: [address] [address] [facility] BASIC METABOLIC PANEL SODIUM [MOLES/VOLU ME] IN SERUM OR PLASMA 140 mmol/L 136 - 145 06/15 Specimen Type: PLASMA No comment entered. Ordering Provider: PITA RG Report Released Date/Time: Apr 11, 2024 11:24 AM Reporting Lab: [address] [address] Performing Lab: [address] [address] [facility] BASIC METABOLIC PANEL CHLORIDE [MOLES/VOLU ME] IN SERUM OR PLASMA 109 mmol/L 98 - 107 06/15 H Specimen Type: PLASMA No comment entered. Ordering Provider: PITA RG Report Released Date/Time: Apr 11, 2024 11:24 AM Reporting Lab: [address] [address] Performing Lab: [address] [address] [facility] BASIC METABOLIC PANEL POTASSIUM [MOLES/VOLU ME] IN SERUM OR PLASMA 4.0 mmol/L 3.5 - 5.1 06/15 Specimen Type: PLASMA No comment entered. Ordering Provider: PITA RG Report Released Date/Time: Apr 11, 2024 11:24 AM Reporting Lab: [address] [address] Performing Lab: [address] [address] [facility] BASIC METABOLIC PANEL ANION GAP IN SERUM OR PLASMA 12.0 10 - 20 06/15 Specimen Type: PLASMA No comment entered. Ordering Provider: PITA RG Report Released Date/Time: Apr 11, 2024 11:24 AM Reporting Lab: [address] [address] Performing Lab: [address] [address] [facility] BASIC METABOLIC PANEL GLOMERULAR FILTRATION RATE/1.73 SQ M.PREDICTED [VOLUME RATE/AREA] IN SERUM, PLASMA OR BLOOD BY CREATININE- BASED FORMULA (CKD-EPI 2020) 71.0 mL/min 06/15 Specimen Type: PLASMA No comment entered. Ordering Provider: PITA RG Report Released Date/Time: Apr 11, 2024 11:24 AM Reporting Lab: [address] [address] Performing Lab: [address] [address] [facility] BASIC METABOLIC PANEL UREA NITROGEN [MASS/VOLUM E] IN SERUM OR PLASMA 21 mg/dL 03/03 Specimen Type: PLASMA Comment: CREATININE eGFR was calculated using the CKD-EPI 2020 equation. Ordering Provider: PITA RG Report Released Date/Time: Mar 01, 2024 10:48 AM Reporting Lab: [address] [address] Performing Lab: [address] [address] [facility] BASIC METABOLIC PANEL CALCIUM [MASS/VOLUM E] IN SERUM OR PLASMA 9.4 mg/dL 8.7 - 10.4 03/03 Specimen Type: PLASMA Comment: CREATININE eGFR was calculated using the CKD-EPI 2020 equation. Ordering Provider: PITA RG Report Released Date/Time: Mar 01, 2024 10:48 AM Reporting Lab: [address] [address] Performing Lab: [address] [address] [facility] BASIC METABOLIC PANEL CREATININE [MASS/VOLUM E] IN SERUM OR PLASMA 1.4 mg/dL 0.70 - 1.30 03/03 H Specimen Type: PLASMA Comment: CREATININE eGFR was calculated using the CKD-EPI 2020 equation. Ordering Provider: PITA RG Report Released Date/Time: Mar 01, 2024 10:48 AM Reporting Lab: [address] [address] Performing Lab: [address] [address] [facility] BASIC METABOLIC PANEL CARBON DIOXIDE, TOTAL [MOLES/VOLU ME] IN SERUM OR PLASMA 27 mmol/L 21 - 32 03/03 Specimen Type: PLASMA Comment: CREATININE eGFR was calculated using the CKD-EPI 2020 equation. Ordering Provider: PITA RG Report Released Date/Time: Mar 01, 2024 10:48 AM Reporting Lab: [place] [id number] Performing Lab: [place] [id number] [facility] BASIC METABOLIC PANEL GLUCOSE [MASS/VOLUM E] IN SERUM OR PLASMA 178 mg/dL 74 - 106 03/03 H Specimen Type: PLASMA Comment: CREATININE eGFR was calculated using the CKD-EPI 2020 equation. Ordering Provider: PITA RG Report Released Date/Time: Mar 01, 2024 10:48 AM Reporting Lab: [place] [id number] Performing Lab: [place] [id number] [facility] BASIC METABOLIC PANEL SODIUM [MOLES/VOLU ME] IN SERUM OR PLASMA 141 mmol/L 136 - 148 03/03 Specimen Type: PLASMA Comment: CREATININE eGFR was calculated using the CKD-EPI 2020 equation. Ordering Provider: PITA RG Report Released Date/Time: Mar 01, 2024 10:48 AM Reporting Lab: [place] [id number] Performing Lab: [place] [id number] [facility] BASIC METABOLIC PANEL CHLORIDE [MOLES/VOLU ME] IN SERUM OR PLASMA 105 mmol/L 98 - 107 03/03 Specimen Type: PLASMA Comment: CREATININE eGFR was calculated using the CKD-EPI 2020 equation. Ordering Provider: PITA RG Report Released Date/Time: Mar 01, 2024 10:48 AM Reporting Lab: [address] [address] Performing Lab: [address] [address] [facility] BASIC METABOLIC PANEL POTASSIUM [MOLES/VOLU ME] IN SERUM OR PLASMA 3.8 mmol/L 3.5 - 5.1 03/03 Specimen Type: PLASMA Comment: CREATININE eGFR was calculated using the CKD-EPI 2020 equation. Ordering Provider: PITA RG Report Released Date/Time: Mar 01, 2024 10:48 AM Reporting Lab: [address] [address] Performing Lab: [phone] [place] [address] BASIC METABOLIC PANEL ANION GAP IN SERUM OR PLASMA 12.8 mmol/L 10 - 03/03 Specimen Type: PLASMA Comment: CREATININE eGFR was calculated using the CKD-EPI 2020 equation. Ordering Provider: PITA RG Report Released Date/Time: Mar 01, 2024 10:48 AM Reporting Lab: [address] [address] Performing Lab: [address] [address] [facility] BASIC METABOLIC [facility] GLOMERULAR FILTRATION RATE/1.73 SQ M.PREDICTED [VOLUME RATE/AREA] IN SERUM, PLASMA OR BLOOD BY CREATININE- BASED FORMULA (CKD-EPI 2020) 53 mL/min 03/03 Specimen Type: PLASMA Comment: CREATININE eGFR was calculated using the CKD-EPI 2020 equation. Ordering Provider: PITA RG Report Released Date/Time: Mar 01, 2024 10:48 AM Reporting Lab: [address] [address] Performing Lab: [address] [address] [facility] Vital Signs Combined list of inpatient and outpatient Vital Signs from [employer] and [employer], ranging from 12 months to all on record, depending upon the facility. Vital Sign Value Date Comments Source SYSTOLIC BLOOD PRESSURE 136 09/05/2024 08:54:47 [facility] DIASTOLIC BLOOD PRESSURE 88 09/05/2024 08:54:47 [facility] PULSE OXIMETRY 98 09/05/2024 08:54:47 [facility] WEIGHT 248 09/05/2024 08:54:47 [facility] BMI 31 kg/m2 09/05/2024 08:54:47 [facility] PAIN 0 09/05/2024 08:54:47 [facility] TEMPERATURE 97.4 09/05/2024 08:54:47 [facility] PULSE 66 09/05/2024 08:54:47 [facility] RESPIRATION 16 09/05/2024 08:54:47 [facility] Encounters Combined list of: 1) Encounters from Department of [facility] facilities going backup to the last 18 months, not all [place] inpatient encounters are included; 2) Encounters from the Department of [facility] facilities going backup to 280 months. Location Location Details Encounter Type Encounter Number Reason For Visit Attending Provider ADM Date DC Date Status Disposition Source [facility] OFFICE O/P EST LOW 20 MIN [id number] Diagnos is: ICD-10- CM E11.42 Type 2 diabete s mellitu s with diabeti c polyneu YUNIOR Orozco 12/15 RACHEL Luis [facility] HEARING AID CHECK BOTH EARS [id number] Diagnos is: ICD-10- CM Z46.1 Encount er for fitting and adjustm ent of hearing aid PARAGSNOW 01/20 [facility] HEARING AID CHECK BOTH EARS [id number] Diagnos is: ICD-10- CM H90.3 Sensori neural hearing loss, SATURNINO Monzon ICMaureen S 01/24 [facility] Outpatient Encounter [id number] 01/25 [facility] QNHP OL DIG ASSMT&MGMT 5-10 [id number] Diagnos is: ICD-10- CM Z51.81 Encount er for therape utic drug level monitor PETEY Guerrier 02/15 [facility] Outpatient Encounter [id number] 02/22 [facility] Outpatient Encounter [id number] 02/23 [facility] MTMS BY PHARM ADDL 15 MIN [id number] Diagnos is: ICD-10- CM E11.9 Type 2 diabete s mellitu s without complic ations IFRAH,REBECC A LAVELL 03/01 [facility] [id number] Diagnos is: ICD-10- CM Z46.1 Encount er for fitting and adjustm ent of hearing aid ARIANEFANY DAVID A 03/03 [facility] MOBILE [facility] DEBRIDE NAIL 6 OR MORE [id number] Diagnos is: ICD-10- CM E11.42 Type 2 diabete s mellitu s with diabeti c polyneu ropathy KAVIN,KWAME A E 03/15 [facility] MTMS BY PHARM ADDL 15 MIN [id number] Diagnos is: ICD-10- CM E11.9 Type 2 diabete s mellitu s without complic ations IFRAH,REBECC A LAVELL 04/11 [facility] Out[facility] Encounter [id number] 04/15 [facility] DEBRIDE NAIL 6 OR MORE [id number] Diagnos is: ICD-10- CM E11.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 Outpatient Encounter [id number] 08/09 [facility] MTMS BY PHARM ADDL 15 MIN [id number] Diagnos is: ICD-10- CM E11.9 Type 2 diabete s mellitu s without complic ations IFRAH,REBECC A LAVELL 08/30 [facility] QNHP OL DIG ASSMT&MGMT 5-10 [id number] Diagnos is: ICD-10- CM Z51.81 Encount er for therape utic drug level monitor NATALYA Wang 08/30 [facility] Outpatient Encounter [id number] 09/05 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 YUNIOR GONZALEZ 12/12 [facility] MTMS BY PHARM ADDL 15 MIN [id number] Diagnos is: ICD-10- CM E11.9 Type 2 diabete s mellitu s without complic ations IFRAH,REBECC A LAVELL 02/27 RACHEL Luis [facility] Out[facility] Encounter [id number] 03/01 [facility] CB OFFICE O/P EST LOW 20 MIN [id number] Diagnos is: ICD-10- CM E11.42 Type [...] [facility] C [facility] History of tobacco use [place]-TOBACCO NEVER USED 08/31/2023 [facility] GAMEZOC History of [...] 06/22/2025 AMBULATORY - SURGERY [facility]
--- OUTSIDE RECORDS SUMMARY | 2025-05-31 09:13 | XMS_ITS | Clinical Summary ---
Author Organization [facility] Address [facility] [place] [address] Care Team Providers Care Medical Malpractice Paralegal Name Role Phone Frank Griffith MD Unavailable [phone] Allergies Active Allergy Reactions Criticality Noted [...] N ot on file 10/16/2020 Data from: [email or web address]/. Last address used for calculation [...] 2000 Shingrix Vaccine (1 of 2) 2000 Advance Directive Discussion 11/09/2024 Influenza Vaccine (#1) 2025 08/24/2019, 2017 RSV Vaccine (1 - 1-dose 75+ series) 2025 Insurance MEDICARE [employer] SUPPLEMENT Care Teams Medical Malpractice Paralegal Relationship Specialty Start Date End Date Frank Griffith MD [address] [place] [phone] Referring Urology 07/26/19
--- OUTSIDE RECORDS SUMMARY | 2025-05-31 09:13 | XMS_ITS | Encounter Summary ---
Author Organization [facility] Address [address] [facility] [place] [address] Care Team Providers Care Heat Treat Technician Name Role Phone Patti Thomas DO Unavailable [phone] Patti Thomas DO Primary Care Provider rTi Watt MD Unavailable [phone] Zhang Kessler MD Unavailable Frank Griffith MD Unavailable [phone] Ten Eckert MD Unavailable Patti Thomas DO Primary Care Provider Shameka Sinclair LPN Unavailable [phone] Luana Hutchinson RN Unavailable [phone] Encounter Details Date Type Department Care Team (Late st Contact Info) Description 07/15/2023 Orders Only [facility] [address] [place] [phone] A, Unknown Practice [address] [place] [id number] Social History Tobacco Use Types Packs/Day Years Used Date Smoking Tobacco: Never Assessed Sex and Gender Information Value Date Recorded Sex Assigned at Not on file Legal Sex Male 6:56 PM EDT Gender Identity Not on file Sexual Orientation Not on file documented as of this encounter Plan of Treatment Upcoming Encounters Date Type Department Care Team (Late st Contact Info) Description 09/01/2025 1:00 PM EDT Office Visit [facility] [address] [place] [phone] Patti Thomas DO [address] [place] [address] documented as of this encounter Procedures Procedure Name Priority Date/Time Associated Diagnosis Comments SCANNED LABS Routine 07/15/2023 4:45 PM EDT SCANNED LABS Routine 07/15/2023 3:24 PM EDT SCANNED LABS Routine 07/14/2023 3:14 PM EDT documented in this encounter Results * SCANNED LABS (07/15/2023 4:45 PM EDT) us Unknown Practice A LAB CHG PERFORMABLES Final Re sult * SCANNED LABS (07/15/2023 3:24 PM EDT) us Unknown Practice A LAB CHG PERFORMABLES Final Re sult * SCANNED LABS (07/14/2023 3:14 PM EDT) us Unknown Practice A LAB CHG PERFORMABLES Final Re sult documented in this encounter Visit Diagnoses Not on filedocumented in this encounter Care Teams Heat Treat Technician Relationship Specialty Start Date End Date Patti Thomas DO [address] [place] [address] PCP - ACO Reach 04/02/23 Patti Thomas DO [address] [place] [address] PCP - General Internal Medicine 03/17/23 07/21/23 Patti Thomas DO [address] [place] [address] PCP - General Internal Medicine 07/23/23 Tri Watt MD [address] [facility] [address] [place] [address] Referring Physician Dermatology 07/22/23 Zhang Kessler MD [address] [place] [address] Referring Physician Ophthalmology 07/22/23 Frank Griffith MD [address] [place] [address] Referring Physician Urology 07/22/23 Ten Eckert MD [address] [facility] [address] [place] [address] Referring Physician Cardiac Electrophysiology 07/22/23 Shameka Sinclair, PATIENT SERVICES MANAGER [address] [place] [address] Licensed Practical Nurse Family Medicine 04/26/25 04/26/25 Luana Hutchinson, RN [address] [place] [address] Registered Nurse Family Medicine 04/26/25 documented as of this encounter
--- OUTSIDE RECORDS SUMMARY | 2025-05-31 09:13 | XMS_ITS | Clinical Summary ---
Author Organization [facility] Address [address] [place] [address] Care Team Providers Care Software Quality Analyst Name Role Phone Patti Thomas DO Unavailable [phone] Tri Watt MD Unavailable [phone] Zhang Kessler MD Unavailable [phone] Frank Griffith MD Unavailable [phone] Ten Eckert MD Unavailable Patti Thomas DO Primary Care Provider Luana Hutchinson RN Unavailable [phone] Allergies Active Allergy Reactions Criticality Noted Date Comments Hydrochlorothiazide 07/20/2023 Other Reaction(s): low K+ and Mg++ Penicillin G Unknown 07/20/2023 Medications Eliquis 5 MG tablet Take 5 mg by mouth in the morning and 5 mg before bedtime. Active metoprolol succinate XL (Toprol-XL) 50 MG 24 hr tabletIndications: Hypertension, unspecified type TAKE ONE TABLET BY MOUTH DAILY FOR 90 DAYS 90 tablet 3 05/31/20 24 Active empagliflozin (Jardiance) 25 MG Take 0.5 tablets by mouth [facility] Active cloNIDine (Catapres) 0.2 MG tablet Take 0.2 mg by mouth in the morning and 0.2 mg before bedtime. Active metFORMIN (Glucophage) 500 MG tabletIndications: Diabetic glomerulopathy (HCC) Take 1 tablet (500 mg) by mouth Daily Dose decreased per RODRIGO Valdivia 08/09/20 24 Active omeprazole (PriLOSEC) [address] capsuleIndications :Gastroesophageal reflux disease with esophagitis without hemorrhage Take 1 capsule (20 mg) by mouth Daily in the Morning Do not crush or chew. 90 capsule 3 12/16/19 25 Active potassium chloride CR (Klor-Con M20) 20 MEQ ER tabletIndications: Stage 3b chronic kidney disease (CMS-HCC) Take 1 tablet (20 mEq) by mouth in the morning and 1 tablet (20 mEq) in the evening and 1 tablet (20 mEq) before bedtime. 270 tablet 3 01/10/20 25 Active amLODIPine (Norvasc) 10 MG tabletIndications: Benign essential hypertension Take 1 tablet (10 mg) by mouth Daily 90 tablet 3 01/24/20 25 Active triamcinolone (Kenalog) 0.1 % creamIndications:D ermatitis Apply topically in the morning and before bedtime. To affected areas. 454 g 3 03/15/20 25 Active amiodarone (Pacerone) 200 MG tablet Take 200 mg by mouth in the morning and 200 mg before bedtime. Active bisacodyl (Dulcolax) 5 MG EC tablet Take 5 mg by mouth Daily as needed for constipation Do not crush, chew, or split. Active simvastatin (Zocor) 40 MG tabletIndications: Mixed hyperlipidemia Take 1 tablet (40 mg) by mouth Daily 90 tablet 3 05/23/20 25 Active fosinopril (Monopril) 40 MG tabletIndications: Primary hypertension Take 1 tablet (40 mg) by mouth Daily 90 tablet 3 05/23/20 25 Active fosinopril (Monopril) 40 MG tabletIndications: Primary hypertension TAKE ONE TABLET BY MOUTH DAILY FOR 90 DAYS 90 tablet 3 06/07/20 24 025 Discontin ued(Reord er) simvastatin (Zocor) 40 MG tabletIndications: Mixed hyperlipidemia TAKE ONE TABLET BY MOUTH DAILY FOR 90 DAYS 90 tablet 3 06/07/20 24 025 Discontin ued(Reord er) Active Problems Problem Noted Date Diagnosed Date Knee joint stiffness, bilateral 08/09/2024 Overview (08/09/2024): At this time, not really interfering with function Advised can use topical Voltaren gel and do stretches (handouts provided) Dermatitis 04/05/2024 CPAP (continuous positive airway pressure) kathiafransico johnson 12/01/2023 Overview (12/01/2023): He reports he is using nightly and continues to have good response Benign essential hypertension 07/20/2023 Overview (07/23/2023): Prescribed amlodipine, fosinopril and metoprolol Assessment & Plan (05/07/2025 5:01 PM EDT): I have reinforced importance of lifestyle modifications (healthy diet choices, regular exercise and weight management) for usp control of blood pressure. Pt is aware of the increased risk of complications ( for example: stroke, heart failure, heart attack, kidney damage or ) when BP not adequately controlled. -Based on review of medications and current medical status; continuation of medications most appropriate. -Will continue to monitor on current rx Assessment & Plan (12/16/2024 1:44 PM EST): His BP is doing fine on current rx. Based on review of patient's medications and current medical status; continuation of medications most appropriate. Compliance with medications and/or management recommendations encouraged. Monitor Assessment & Plan (08/09/2024 2:11 PM EDT): His BP is doing fine on current rx. Based on review of patient's medications and current medical status; continuation of medications most appropriate. Compliance with medications and/or management recommendations encouraged. Monitor Assessment & Plan (04/05/2024 2:06 PM EDT): BP is doing fine on current rx. Based on review of patient's medications and current medical status; continuation of medications most appropriate. Compliance with medications and/or management recommendations encouraged. Monitor Assessment & Plan (12/01/2023 1:59 PM EST): -Pt is doing fine on current rx. Based on review of patient's medications and current medical status; continuation of medications most appropriate. Compliance with medications and/or management recommendations encouraged. Monitor Assessment & Plan (07/23/2023 3:23 PM EDT): -Reinforced importance of lifestyle modifications (healthy diet choices, regular exercise and weight management) for usp control of blood pressure. Limit salt. Follow the DASH diet. Advised of increased risk of complications ( for example: stroke, heart failure, heart attack, kidney damage or ) when BP not adequately controlled. BP goals reviewed and specific recommendations to achieve the goal/maintain goal BP discussed Cortical age-related cataract of both eyes 07/20 Overview (12/01/2023): asymptomatic Assessment & Plan (05/07/2025 5:02 PM EDT): He continues to follow with Ophthal and these are being monitored Diabetes mellitus with nephropathy 07/20/2023 Overview (04/05/2024): Prescribed Metformin 03/2024- will add jardiance [facility]) Assessment & Plan (05/07/2025 4:58 PM EDT): His glucose control remains stable. -I have reinforced the importance of dietary modification, routine exercise and weight control for usp DM management and reduction in risk for development and progression of complications (like vision loss, kidney failure, neuropathy, and increased risk of heart attack and stroke). -Chart reviewed to make sure patient is up to date on screenings for DM related comorbidities (ie annual dilated eye exam, annual ABDULLAHI and other labs and reminded to do daily foot exams). Specific goals for A1c and BP were reviewed and ways to achieve this goals discussed. Assessment & Plan (12/16/2024 1:49 PM EST): -He admits that he has been celebrating [...] can do with upcoming labs for Urologist Assessment & Plan (08/09/2024 2:10 PM EDT): A1c has decreased a little (from 7.0% [...] and ways to achieve this goals discussed. Assessment & Plan (04/05/2024 2:03 PM EDT): -At this appt, I reinforced the importance of dietary modification, routine exercise and weight control for usp DM management and reduction in risk for development and progression of complications (like vision loss, kidney failure, neuropathy, and increased risk of heart attack and stroke). Chart reviewed to make sure patient is up to date on screenings for DM related comorbidities (ie annual dilated eye exam, annual ABDULLAHI and other labs and reminded to do daily foot exams). Specific goals for A1c and BP were reviewed and ways to achieve this goals discussed. Assessment & Plan (12/01/2023 1:58 PM EST): While A1c is up from previous, his overall control is still reasonable. Encouraged him to get back on track on track with low CHO intake. -Chart reviewed to make sure patient is up to date on screenings for DM related comorbidities (ie annual dilated eye exam, annual ABDULLAHI and other labs and reminded to do daily foot exams). Specific goals for A1c and BP were reviewed and ways to achieve this goals discussed. Assessment & Plan (07/23/2023 3:27 PM EDT): -His glucose control remains very good (despite having increased) -At this appt, I reinforced the importance of dietary modification, routine exercise and weight control for usp DM management and reduction in risk for development and progression of complications (like vision loss, kidney failure, neuropathy, and increased risk of heart attack and stroke). Chart reviewed to make sure patient is up to date on screenings for DM related comorbidities (ie annual dilated eye exam, annual ABDULLAHI and other labs and reminded to do daily foot exams). Specific goals for A1c and BP were reviewed and ways to achieve this goals discussed. Diverticulosis 07/20/2023 Hyperplasia of prostate with lower urinary tract symptoms (LUTS) 07/20/2023 Overview (05/07/2025): He had procedure (Rezum) with Urology ~09/2023 Assessment & Plan (07/23/2023 3:32 PM EDT): He is scheduled for a cystoscopy at the end of the month Gastroesophageal reflux dise ase with esophagitis without hemorrhage 07/20/2023 Overview (12/01/2023): Prescribed omeprazole Assessment & Plan (12/16/2024 1:47 PM EST): -Pt advised to avoid food triggers and follow conservative management measures (including avoiding tight fitting pants, weight management, and elevating HOB as indicated) to keep GERD symptoms under control. -Take medications as recommended and monitor for alarm symptoms . Assessment & Plan (12/01/2023 1:52 PM EST): -Pt advised to avoid food triggers and follow conservative management measures (including avoiding tight fitting pants, weight management, and elevating HOB as indicated) to keep GERD symptoms under control. -Dietary modifications that can help with symptom management include: Eat smaller, more frequent meals rather than large one. Avoid food or liquids for 2-3 hours before lying down (no bedtime snacks!) Avoid or limit the following: Caffeinated products: coffee, tea, sodas, chocolate Red sauces and salsa Fatty, fried, or greasy foods Citric juices: orange, grapefruit Spicy foods Mints: peppermint, spearmint Alcohol -Take medications as recommended and monitor for alarm symptoms . Mixed hyperlipidemia 07/20/2023 Overview (12/16/2024): Prescribed simvastatin 40 mg daily 07/2023- TC-138; TG-38, HDL-44, LDL- 86 --- 08/2024: could be an interaction between the amlodipine and simvastatin, but he has been on both these at current doses and there has not been any issue. Will continue to monitor for now. He reports he will be having labs soon at [facility], so if LDL happens to be <50, would consider decrease in dose or simvastatin, but if LDL not at goal will change to a different statin rather than increase dose ---- 08/2024 LDL=91 Assessment & Plan (05/07/2025 4:58 PM EDT): -The importance of dietary modification, regular cardiovascular activity and compliance with any prescribed medication for intermediate management/control of lipids has been discussed. Since high cholesterol (especially LDL) is associated with an elevated risk of cardiovascular disease, which includes coronary artery disease, stroke and peripheral vascular disease, and has also been linked to diabetes and high blood pressure risks, by appropriately treating LDL, these risks can be reduced. Assessment & Plan (12/16/2024 1:39 PM EST): -The importance of dietary modification, regular cardiovascular activity and compliance with any prescribed medication for roasterman management/control of lipids has been discussed. Since high cholesterol (especially LDL) is associated with an elevated risk of cardiovascular disease, which includes coronary artery disease, stroke and peripheral vascular disease, and has also been linked to diabetes and high blood pressure risks, by appropriately treating LDL, these risks can be reduced. Assessment & Plan (04/05/2024 2:01 PM EDT): -Reinforced importance of dietary modification, regular cardiovascular activity and compliance with any prescribed medication for usp management/control of lipids. High cholesterol (especially LDL) is associated with an elevated risk of cardiovascular disease. This includes coronary artery disease. stroke and peripheral vascular disease. High cholesterol has also been linked to diabetes and high blood pressure risks. By appropriately treating LDL, these risks can be reduced. Assessment & Plan (12/01/2023 1:58 PM EST): -Reinforced importance of dietary modification, regular cardiovascular activity and compliance with any prescribed medication for usp management/control of lipids. High cholesterol (especially LDL) is associated with an elevated risk of cardiovascular disease. This includes coronary artery disease. stroke and peripheral vascular disease. High cholesterol has also been linked to diabetes and high blood pressure risks. By appropriately treating LDL, these risks can be reduced. Assessment & Plan (07/23/2023 3:23 PM EDT): -Reinforced importance of dietary modification, regular cardiovascular activity and compliance with any prescribed medication for usp management/control of lipids. High cholesterol (especially LDL) is associated with an elevated risk of cardiovascular disease. This includes coronary artery disease. stroke and peripheral vascular disease. High cholesterol has also been linked to diabetes and high blood pressure risks. By appropriately treating LDL, these risks can be reduced. Persistent atrial fibrillation 07/20/2023 Overview (05/07/2025): Prescribed Eliquis and metoprolol 03/2025:Dr Eckert recently started him on amiodarone 200mg bid x 14 days and then 100mg daily. He is scheduled to have a cardioversion done on 04/10/202504/2025- Cardioversion was successful Assessment & Plan (05/07/2025 5:00 PM EDT): At this time, he seems to to have maintained NSR (since the cardioversion) based on auscultation. Anticoagulation is being tolerated without any evidence of significant adverse effect. Will continue current regimen and monitoring. 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 -At this time, rate is adequately controlled on current medications. Anticoagulation is being tolerated without any evidence of significant adverse effect. Will continue current regimen and monitor. Assessment & Plan (08/09/2024 2:10 PM EDT): Rate is adequately controlled on current medications. Anticoagulation is being tolerated without any evidence of significant adverse effect. Will continue current regimen and monitor. Assessment & Plan (04/05/2024 2:05 PM EDT): At this time, rate is adequately controlled on current medications. Anticoagulation is being tolerated without any evidence of significant adverse effect. Will continue current regimen and monitor. Assessment & Plan (12/01/2023 1:53 PM EST): He denies any recent issues with feeling like heart skipping or racing . -At this time, rate is adequately controlled on current medications. Anticoagulation is being tolerated without any evidence of significant adverse effect. Will continue current regimen and monitor. Sensorineural hearing loss, bilateral 07/20/2023 Overview (12/16/2024): She has hearing aids Stage 3b chronic kidney disease 07/20/2023 Overview (05/07/2025): Added Jardiance 03/2024 for renal protective benefits Assessment & Plan (05/07/2025 5:01 PM EDT): -Will continue to monitor the renal function for any significant decline in eGFR. We will continue to work to optimally control any underlying conditions (DM and/or hypertension specifically) that are associated with worsening effects on kidney function and I will adjust medications as needed due to any changes in the kidney function. Assessment & Plan (12/16/2024 1:44 PM EST): -We will continue to monitor your renal function for any significant decline in eGFR (which is a measure of how well your kidneys are working). We will continue to work to optimally control any underlying conditions that are associated with worsening effects on kidney function and I will adjust medications as needed due to any changes in your kidney function. Assessment & Plan (08/09/2024 2:11 PM EDT): -We will continue to monitor your renal function for any significant decline in eGFR (which is a measure of how well your kidneys are working). We will continue to work to optimally control any underlying conditions that are associated with worsening effects on kidney function and I will adjust medications as needed due to any changes in your kidney function. Assessment & Plan (04/05/2024 2:05 PM EDT): -We will continue to monitor your renal function for any significant decline in eGFR (which is a measure of how well your kidneys are working). We will continue to work to optimally control any underlying conditions that are associated with worsening effects on kidney function and I will adjust medications as needed due to any changes in your kidney function. Assessment & Plan (12/01/2023 1:54 PM EST): -We will continue to monitor your renal function for any significant decline in eGFR (which is a measure of how well your kidneys are working). We will continue to work to optimally control any underlying conditions that are associated with worsening effects on kidney function and I will adjust medications as needed due to any changes in your kidney function. Assessment & Plan (07/23/2023 3:24 PM EDT): -We will continue to monitor your renal function for any significant decline in eGFR (which is a measure of how well your kidneys are working). We will continue to work to optimally control any underlying conditions that are associated with worsening effects on kidney function and I will adjust medications as needed due to any changes in your kidney function. KUSH on CPAP Overview (09/06/2023): -Since untreated sleep apnea is linked to [...] and quitting smoking can be helpful for usp management. But the most effective treatment is continuous positive airway pressure. So it is important to be compliant with prescribed treatment Assessment & Plan (12/16/2024 1:45 PM EST): He is compliant with tx Resolved Problems Problem Noted Date Diagnosed Date Resolved Date Diverticulitis of colon 07/20/202307/10 Positive colorectal cancer s creening using Cologuard test 07/20/2023 09/06/2023 Encounters Date Type Department Care Team Description 05/23/2025 Refill [facility] [address] [place] [id number] Maral Soares LPN Mixed hyperlipidemia ; Primary hypertension 05/04/2025 Patient Outreach [facility] [address] [place] [address] Luana Hutchinson, DENISHA 04/26/2025 11:15 AM EDT Office Visit [facility] [address] [place] [phone] Patti Thomas, DO Diabetes mellitus with nephropathy (HCC) (Primary Dx); Bradycardia; Mixed hyperlipidemia ; Persistent atrial fibrillation (HCC); Stage 3b chronic kidney disease (CMS-HCC); Benign essential hypertension ; Cortical age-related cataract of both eyes; CPAP (continuous positive airway pressure) dependence; Hyperplasia of prostate with lower urinary tract symptoms (LUTS); KUSH on CPAP 04/26/2025 Travel 04/24/2025 Clinisync Result Encounter [facility] Department Unsolicited Patti Thomas DO 04/20/2025 Patient Outreach [facility] [address] [place] [address] Luana Hutchinson, DENISHA 04/20/2025 Travel 04/17/2025 Telephone [facility] [address] [place] [phone] Galindo Cruz MA 03/24/2025 Orders Only [facility] [address] [place] [address] Carlitos Soria MD 03/23/2025 1:00 PM EDT Office Visit [facility] [address] [place] [phone] Patti Thomas, Pneumonia of left lower lobe due to infectious organism (Primary Dx) 03/23/2025 Travel 03/22/2025 Orders Only [facility] [address] [place] [address] Unallocated, [facility] MD Zohreh 03/21/2025 Travel 03/21/2025 Patient Outreach [facility] [address] [place] [phone] Waleska Adams LSW 03/15/2025 [facility]ill [facility] [address] [place] [phone] Galindo Cruz, MA Dermatitis 03/07/2025 Results Follow-Up [facility] [address] [place] [phone] Patti Thomas, from Last 3 Months Immunizations Immunization Administration Dates Next Due Influenza, High Dose Seasona l, Preservative Free 07/25/2022,08/31/2017 Influenza, Seasonal, Quadriv alent, Adjuvanted 07/23/2023 Influenza, injectable, quadr ivalent, preservative free 09/01/2016 Influenza, seasonal, injecta ble, preservative free 10/27/2014 Influenza, seasonal, intrade rmal, preservative free 08/30/2015 Influenza, trivalent, adjuvanted 024,08/03/2020,08/29/2019,2017 Tdap 10/06/2017 Family History Medical History Relation Name Comments No Known Problems Daughter Heart disease Father Heart failure Father Diabetes Father's Brother Brain cancer Mother Breast cancer Mother Lung cancer Mother Diabetes Paternal Grandfather Relation Name Status Comments Brother 2 Daughter 3 Father (Age 84) Father's Brother Mother (Age 86) Paternal Grandfather Sister 1 Social History Tobacco Use Types Packs/Day Years Used Date Smoking Tobacco: Never Smokeless Tobacco: Never Tobacco Cessation:Counseling Given: No Alcohol Use Standard Drinks/Week Comments Not Currently 0 (1 standard drink = 0.6 oz pur e alcohol) PHQ-2 Answer Date Recorded Patient Health Questionnaire-2 Score 0 08/02/2024 Sex and Gender Information Value Date Recorded Sex Assigned at Not on file Legal Sex Male 6:56 PM EDT Gender Identity Not on file Sexual Orientation Not on file Last Filed Vital Signs Vital Sign Reading Time Taken Comments Blood Pressure 124/72 04/26/2025 11:33 AM EDT Pulse 45 04/26/2025 11:33 AM EDT Temperature - - Respiratory Rate - - Oxygen Saturation 98% 04/26/2025 11:33 AM EDT Inhaled Oxygen Concentration - - Weight 105 kg (231 lb) 04/26/2025 11:33 AM EDT Height 195.6 cm (6' 5 ) 07/23/2023 2:48 PM EDT Body Mass Index 27.39 07/23/2023 2:48 PM EDT Plan of Treatment Upcoming Encounters Date Type Department Care Team (Late st Contact Info) Description 09/01/2025 1:00 PM EDT Office Visit [facility] [address] [place] [address] Patti Thomas DO [address] [place] [address] Health Maintenance Due Date Last Done Comments CT Colonography 1950 FIT 1950 FOBT 1950 Sigmoidoscopy 1950 Influenza Vaccine (#1) 2025 , 07/23/2023, 08/09/2022, Additional history exists Diabetes: Hemoglobin A1C 07/27/2025 025, 12/16/2024, 06/15/2024, Additional history exists FIT-DNA 08/04/2025 08/04/2022, 07/11, 05/04/2019, Additional history exists Medicare Annual Wellness (AWV) 08/09/2025 08/09/2024, 07/25/2022 Pneumococcal Vaccine: 65+ Years (1 of 2 - PCV) 08/09/2025 Postponed from 1969 (Patient Refused) Diabetes: Urine Protein Screening 02/22/2026 02/22/2025, 02/15/2024, 07/08/2022, Additional history exists Diabetes: Retinopathy Screening 09/05/2026 09/05/2024, 09/01/2022, 08/30/2021, Additional history exists Colonoscopy 11/06/2032 11/06/2022, 11/06/2022 Colorectal Cancer Screening 11/06/2032 Procedures Procedure Name Priority Date/Time Associated Diagnosis Comments POCT GLYCATED HEMOGLOBIN, TOTAL Routine 04/26/2025 11:38 AM EDT Diabetes mellitus with nephropathy (HCC) XR CHEST 2V 04/24/2025 9:24 AM EDT ECG 12-LEAD Routine 03/21/2025 9:20 AM EDT BASIC METABOLIC PANEL Routine 03/18/2025 12:49 PM EDT CBC WITH AUTO DIFFERENTIAL Routine 03/18/2025 12:49 PM EDT UA WITH CULT RFLX Routine 03/18/2025 12: 49 PM EDT ECG 12-LEAD Routine 03/18/2025 12:47 PM EDT DIABETIC RETINOPATHY SCREENING - OU - BOTH EYES Routine 09/05/2024 3:09 PM EDT MICROALBUMIN / CREATININE URINE RATIO Routine 02/15/2024 COLONOSCOPY Routine 11/06/2022 12:00 PM EST LAB COLOGUARD COLON CANCER SCREEN Routine 08/04/2022 from Last 3 Months or Most Recently Relevant to Health Maintenance Results * POCT Glycated hemoglobin, total (04/26/2025 11:38 AM EDT) Hemoglobin A1C 7.2 Blood 04/26/2025 11:3 8 AM EDT Patti Thomas DO POINT OF CARE TEST ENTE R/EDIT ORDERABLES Final Result * XR CHEST 2V (04/24/2025 9:24 AM EDT) Anatomical Region Laterality Modality Other 04/24/2025 9:24 AM EDT Narrative 04/24/2025 9:26 AM EDT The [address] [address] XRay Report Signed Patient: ALINE TOMLIN MR#: [id number] : 1950 Acct:[id number] Age/Sex: 74 / M ADM Date: 04/24/25 Loc: RAD Attending Dr: PATTI GONG Ordering Physician: PATTI DASILVA Date of Service: 04/24/25 Procedure(s): XR chest 2V Accession Number(s): [id number] cc: PATTI DASILVA [place] [id number] Patient Name: ALINE TOMLIN MRN: [id number] date: 1950 Sex: M Assigned Patient Location: RAD Current Patient Location: RAD Accession/Order Number: [id number] Exam Date: 04/24/2025 09:22 Report Date: 04/24/2025 09:24 At the request of: PATTI GONG Procedure: XR chest 2V PA AND LATERAL CHEST: CLINICAL HISTORY: Follow up left lower lobe pneumonia J18. COMPARISON: 03/18/2025 Left basilar parenchymal change on the prior has resolved. There is no new consolidation, effusion or pneumothorax. The cardiac, hilar and mediastinal silhouettes are within normal limits. There is no vascular congestion. The visualized bony thorax is intact. End plate spurring is present the spine. XR/XR chest 2V IMPRESSION: NO ACUTE CARDIOPULMONARY ABNORMALITY. Impression dictated by: Shilpi Quispe M.D. 04/24/2025 9:24 AM Dictation Location: [place] [address] Electronically authenticated by: [id number] Y Date: 04/24/2025 09:24 Dictated By: Shilpi Quispe M.D. Signed By: 04/24/25925 DD/ 3 TD/TT: Cdl Instructor: Procedure Note Radiology, Radiologist, MD - 04/24/2025 [place] [address] XRay Report Signed Patient: ALINE OTMLIN LMR#: [id number] : 1950Acct:[id number] Age/Sex: 74 / MADM Date: 04/24/25 Loc: RAD Attending Dr: PATTI GONG Ordering Physician: PATTI DASILVA Date of Service: 04/24/25 Procedure(s): XR chest 2V Accession Number(s): [id number] cc: PATTI DASILVA [address] [address] Patient Name: ALINE TOMLIN MRN: [id number] date: 1950 Sex: M Assigned Patient Location: [facility] Current Patient Location: RAD Accession/Order Number: [id number] Exam Date: 04/24/2025 09:22 Report Date: 04/24/2025 09:24 At the request of: PATTI GONG Procedure: XR chest 2V PA AND LATERAL CHEST: CLINICAL HISTORY: Follow up left lower lobe pneumonia J18. COMPARISON: 03/18/2025 Left basilar parenchymal change on the prior has resolved. There is no new consolidation, effusion or pneumothorax. The cardiac, hilar andmediastinal silhouettes are within normal limits. There is no vascular congestion.The visualized bony thorax is intact. End plate spurring is present thespine. XR/XR chest 2V IMPRESSION: NO ACUTE CARDIOPULMONARY ABNORMALITY. Impression dictated by: Shilpi Quispe M.D. 04/24/2025 9:24 AM Dictation Location: [place] [address] Electronically authenticated by: [id number] Y Date: 9:24 Dictated By: Shilpi Quispe M.D. Signed By:04/24/25925 DD/ 3 TD/TT: Cdl Instructor: us Patti Thomas DO [facility] Final Result * ECG 12 lead (03/21/2025 9:20 AM EDT) Only the most recent of2 resultswithin the time period is included. us Noms Provider Unallocated ECG ORDERABLES Fin al Result * UA WITH CULT RFLX (03/18/2025 12:49 PM EDT) us Norbert Wild MD LAB BLOOD ORDERABLES Final Resul t * CBC auto differential (03/18/2025 12:49 PM EDT) Blood Venous blood specimen / Unknown us Norbert Wild MD LAB BLOOD ORDERABLES Final Resul t * Basic metabolic panel (03/18/2025 12:49 PM EDT) Blood Venous blood specimen / Unknown us Norbert Wild MD LAB BLOOD ORDERABLES Final Resul t * Diabetic Retinopathy Screening - OU - Both Eyes (09/05/2024 3:09 PM EDT) Anatomical Region Laterality Modality Head Other Unknown Practice A OPHTH PHOTOGRAPHY Edited Resu lt - Final * Microalbumin / creatinine urine ratio (02/15/2024) MICROALBUMIN, URINE 6.9 ALB/CREAT RATIO 52.1 URINE CREAT 132.4 Urine Urine specimen obtained by clean catch procedure / Unknown 02/15/2024 Result [facility] Patti Thomas DO LAB URINE ORDERABLES Fi nal Result * Colonoscopy (11/06/2022 12:00 PM EST) Anatomical Region Laterality Modality Endoscopy 11/06/2022 12:0 0 PM EST Narrative 11/06/2022 12:00 PM EST PERFORMED AT [facility] LOCATION:[id number] diverticulosis noted, negative for polyps, repeat in 5 yrs d/t positive cologuard Procedure Note CONVERSION, GENERIC - 03/25/2023 PERFORMED AT [facility] LOCATION:[id number] diverticulosis noted, negative for polyps, repeat in 5 yrs d/t positivecologuard Result [facility] us Patti Thomas DO ENDOSCOPY PROCEDURE ORD ERABLES Final Result * (ABNORMAL) Cologuard?? colon cancer screening (08/04/2022) COLOGUARD RESULT REPORTABLE Positive( A) Negative [facility] Comment: POSITIVE TEST RESULT. A positive Cologuard result should be followed with a colonoscopy or visual examination of the colon. The normal value (reference range) for this assay is negative. TEST DESCRIPTION: Composite algorithmic analysis of stool DNA-biomarkers with hemoglobin immunoassay. Quantitative values of individual biomarkers are not reportable and are not associated with individual biomarker result reference ranges. Cologuard is intended for colorectal cancer screening of adults of either sex, 45 years or older, who are at average-risk for colorectal cancer (CRC). Cologuard has been approved for use by the U.S. FDA. The performance of Cologuard was established in a cross sectional study of average-risk adults aged 50-84. Cologuard performance in patients ages 45 to 49 years was estimated by sub-group analysis of near-age groups. Colonoscopies performed for a positive result may find as the most clinically significant lesion: colorectal cancer [4.0%], advanced adenoma (including sessile serrated polyps greater than or equal to 1cm diameter) [20%] or non- advanced adenoma [31%]; or no colorectal neoplasia [45%]. These estimates are derived from a prospective cross-sectional screening study of 10,000 individuals at average risk for colorectal cancer who were screened with both Cologuard and colonoscopy. (Mirian Song al, N Engl J Med 2014;370(14):7355-6010.) Cologuard may produce a false negative or false positive result (no colorectal cancer or precancerous polyp present at colonoscopy follow up). A negative Cologuard test result does not guarantee the absence of CRC or advanced adenoma (pre-cancer). The current Cologuard screening interval is every 3 years. ([place] [employer] Society and U.S. Multi-Society Task Force). Cologuard performance data in a 10,000 patient pivotal study using colonoscopy as the reference method can be accessed at the following location: www.Cubby.C-sam/results. Additional description of the Cologuard test process, warnings and precautions can be found at www.cologElastrard.com. 08/04/2022 Patti Thomas DO LAB MOLECULAR DIAGNOSTI CS ORDERABLES Final Result [facility] from Last 3 Months or Most Recently Relevant to Health Maintenance Insurance MEDICARE [place] Care Teams Software Quality Analyst Relationship Specialty Start Date End Date Patti Thomas DO [address] [facility] [address] [place] [address] PCP - ACO Reach 04/02/23 Patti Thomas DO [address] [facility] [address] [place] [address] PCP - General Internal Medicine 07/23/23 Tri Watt MD [address] [address] Referring Physician Dermatology 07/22/23 Zhang Kessler MD [address] [place] [address], [place] [address] Referring Physician Ophthalmology 07/22/23 Frank Griffith MD [address] [place] [address] Referring Physician Urology 07/22/23 Ten Eckert MD [address] [place] [address] Referring Physician Cardiac Electrophysiology 07/22/23 Luana Hutchinson, DENISHA [address] [place] [address] Registered Nurse Family Medicine 04/26/25
--- OUTSIDE RECORDS SUMMARY | 2025-05-31 09:13 | XMS_ITS | Encounter Summary ---
Author Organization [facility] Address [address] [facility] [place] [address] Care Team Providers Care Furnace Mason Name Role Phone Patti Thomas DO Unavailable [phone] Tri Watt MD Unavailable [phone] Zhang Kessler MD Unavailable [phone] Frank Griffith MD Unavailable [phone] Ten Eckert MD Unavailable Patti Thomas DO Primary Care Provider Shameka Sinclair LPN Unavailable [phone] Luana Hutchinson RN Unavailable [phone] Encounter Details Date Type Department Care Team (Late st Contact Info) Description 02/23/2025 Orders Only [facility] [address] [place] [address] Frank Griffith MD [address] [place] [address] Social History Tobacco Use Types Packs/Day Years [...] IM [address] [place] [address] Patti Thomas DO [address] [facility] [address] [place] [address] documented as of this encounter Procedures Procedure Name Priority Date/Time Associated Diagnosis Comments PSA, TOTAL AND FREE Routine 02/22/2025 8:09 AM EDT documented in this encounter Results * PSA, total and free (02/22/2025 8:09 AM EDT) Blood Venous blood specimen / Unknown us Frank Griffith MD LAB BLOOD ORDERABLES Final Res ult documented in this encounter Visit Diagnoses Not on filedocumented in this encounter Care Teams Furnace Mason Relationship Specialty Start Date End Date Patti Thomas DO [address] [facility] [address] [place] [address] PCP - ACO Reach 04/02/23 Patti Thomas DO [address] [facility] [address] [place] [address] PCP - General Internal Medicine 07/23/23 Tri Watt MD [address] [address] Referring Physician Dermatology 07/22/23 Zhang Kessler MD [address] [place] [address] Referring Physician Ophthalmology 07/22/23 Frank Griffith MD [address] [place] [address] Referring Physician Urology 07/22/23 Ten Eckert MD [address] [facility] [address] Referring Physician Cardiac Electrophysiology 07/22/23 Shameka Sinclair, WIND FARM ELECTRICAL SYSTEMS DESIGNER [address] [place] [address] Licensed Practical Nurse Family Medicine 04/26/25 04/26/25 Luana Hutchinson, RN [address] [place] [address] Registered Nurse Family Medicine 04/26/25 documented as of this encounter
--- OUTSIDE RECORDS SUMMARY | 2025-05-31 09:13 | XMS_ITS | Encounter Summary ---
Author Organization [facility] Address [address] [place] [address] Care Team Providers Care Chief Design Engineer Name Role Phone Patti Thomas MD Primary Care Provider [phone] Encounter Details Date Type Department Care Team (Late st Contact Info) Description 05/23/2025 Telephone [facility] [address] [place] [address] Emani Gomez MA Social History Tobacco Use Types Packs/Day [...] on file documented as of this encounter Miscellaneous Notes * Telephone Encounter - Emani Gomez MA - 05/23/2025 3:56 PM EDT Phone call from , states patient was prescribed Spirolactone, on May 15 which , states he has a rash appeared on May 20 his arms and forehead and he had a puffy right eye which hasresolved, now he has a puffy left eye. read that people who take potassium should not take this drug, states he is taking potassium 3 times a day. Per this is the only new medication. states they have not tried benadryl or any medications for the rash. Please advise. I called again and advised her to stop the Spirolactone until we hear from you. I did advise her to apply cortisone cream to the rash. Please call the patient???s back with the following message: While rash and eye puffiness are not common with spironolactone, they have been reported in rare cases and may represent a mild hypersensitivity reaction. Given the timing, it???s reasonable to continue holding the medication for now. Importantly, spironolactone is NOT contraindicated with potassium supplements when monitored appropriately. It is frequently used in combination with potassium in clinical practice. A BMP was proactively ordered one week after initiation to monitor kidney function, potassium, and electrolytes -- a standard and appropriate safety measure taken to ensure tolerance. At this time: - Continue holding spironolactone - Benadryl may be used if the rash becomes bothersome - Continue using cortisone cream - Seek immediate care for any worsening symptoms, especially swelling of the face or throat We will follow up once labs return to reassess and determine next steps. Thanks, Kenn Koenig [facility] Cardiovascular Medicine Advised of Knen Koenig's recommendation. verbalized understanding, and agreed with plan of care. documented in this encounter Plan of Treatment Upcoming Encounters Date Type Department Care Team (Late st Contact Info) Description 07/03/2025 9:40 AM EDT Office Visit [facility] [address] [place] [address] Kenn Koenig, GEOSPATIAL EXTRACTOR ANALYSIS [address] [place] [address] documented as of this encounter Visit Diagnoses Not on filedocumented in this encounter Care Teams Chief Design Engineer Relationship Specialty Start Date End Date Patti Thomas MD [address] [facility] [address] PCP - General 11/05/22 documented as of this encounter
--- OUTSIDE RECORDS SUMMARY | 2025-05-31 09:13 | XMS_ITS | Encounter Summary ---
Author Organization [facility] Address [address] [facility] [place] [address] Care Team Providers Care Box Sealing Machine Operator Name Role Phone Patti Thomas DO Unavailable [phone] Tri Watt MD Unavailable [phone] Zhang Kessler MD Unavailable [phone] Frank Griffith MD Unavailable [phone] Ten Eckert MD Unavailable Patti Thomas DO Primary Care Provider Shameka Sinclair LPN Unavailable [phone] Luana Hutchinson RN Unavailable [phone] Encounter Details Date Type Department Care Team (Late st Contact Info) Description 11/05/2023 Orders Only [facility] [address] [place] [address] A, Unknown Practice [address] [place] [address] Social History Tobacco Use Types Packs/Day Years Used Date Smoking Tobacco: Never Smokeless Tobacco: Never Alcohol Use Standard Drinks/Week Comments Not Currently 0 (1 standard drink = 0.6 oz pur e alcohol) PHQ-2 Answer Date Recorded Patient Health Questionnaire-2 Score 0 07/23/2023 Sex and Gender Information Value Date Recorded [...] IM [address] [place] [address] Patti Thomas DO [address] [place] [address] documented as of this encounter Procedures Procedure Name Priority Date/Time Associated Diagnosis Comments TRANSTHORACIC ECHO (TTE) COMPLETE Routine 11/04/2023 10:04 AM EST documented in this encounter Results * Transthoracic echo (TTE) complete (11/04/2023 10:04 AM EST) Anatomical Region Laterality Modality Heart Ultrasound us Unknown Practice A CV ECHO PROCEDURES Final Resu lt documented in this encounter Visit Diagnoses Not on filedocumented in this encounter Care Teams Box Sealing Machine Operator Relationship Specialty Start Date End Date Patti Thomas DO [address] [place] [address] PCP - ACO Reach 04/02/23 Patti Thomas DO [address] [place] [address] PCP - General Internal Medicine 07/23/23 Tri Watt MD [address] [address] Referring Physician Dermatology 07/22/23 Zhang Kessler MD [address] [place] [address] Referring Physician Ophthalmology 07/22/23 Frank Griffith MD [address] [place] [facility] [place] [address] Referring Physician Urology 07/22/23 Ten Eckert MD [address] [facility] [address] Referring Physician Cardiac Electrophysiology 07/22/23 Shameka Sinclair LPN [address] [facility] [address] [place] [address] Licensed Practical Nurse Family Medicine 04/26/25 04/26/25 Luana Hutchinson, DENISHA [address] [facility] [address] [place] [address] Registered Nurse Family Medicine 04/26/25 documented as of this encounter
--- OUTSIDE RECORDS SUMMARY | 2025-05-31 09:13 | XMS_ITS ---
Author Organization [facility] Address [address] [place] [address] Care Team Providers Care Student Success Counselor Name Role Phone Patti Thomas DO Unavailable [phone] Tri Watt MD Unavailable [phone] Zhang Kessler MD Unavailable [phone] Frank Griffith MD Unavailable [phone] Ten Eckert MD Unavailable Patti Thomas DO Primary Care Provider Luana Hutchinson RN Unavailable [phone] Chronic Care Management (CCM) Status:Enrolled (Active) Start date:04/26/2025 Enrollment date:05/04/2025 Enrollment reason:Identified as high-risk Overview <May 04, 2025, 15:36 - Luana Hutchinson RN> Patient gives verbal consent to be enrolled in CCM program and understands there could be a bill for this service. Case Team Name Relationship Phone Luana Hutchinson RN(Responsible Staff) Registered N [facility] [phone] Continued Care and Services Coordination
--- OUTSIDE RECORDS SUMMARY | 2025-05-31 09:13 | XMS_ITS | Encounter Summary ---
Author Organization [facility] Address [address] [facility] [place] [address] Care Team Providers Care Cash Register Operator Name Role Phone Patti Thomas DO Unavailable [phone] Patti Thomas DO Primary Care Provider Tri Watt MD Unavailable [phone] Zhang Kessler MD Unavailable [phone] Frank Griffith MD Unavailable Ten Eckert MD Unavailable Patti Thomas DO Primary Care Provider Shameka Sinclair LPN Unavailable Luana Hutchinson RN Unavailable [phone] Encounter Details Date Type Department Care Team (Late st Contact Info) Description 07/20/2023 Orders Only [facility] [address] [facility] [address] [place] [address] Emani Cavazos, CLOTH OPENER HAND [address] [place] [address] Social History Tobacco Use Types Packs/Day Years Used Date Smoking Tobacco: Never Assessed PHQ-2 Answer Date Recorded Patient Health Questionnaire-2 Score 0 07/23/2023 Sex and Gender Information Value Date Recorded Sex Assigned at Not on file Legal Sex Male 6:56 PM EDT Gender Identity Not on file Sexual Orientation Not on file COVID-19 Exposure Response Date Recorded In the last 10 days, have yo u been in contact with someone who was confirmed or suspected to have Coronavirus/COVID-19? No / Unsure 07/22/2023 5:28 PM EDT documented as of this encounter Functional Status * Over the past 2 weeks, how often have you been bothered by any of the following problems? Question Answer Date of Assessment Author Little interest or pleasure in doing things Not at all 07/23/2023 2:00 PM EDT Quyen Mcadams LP N Feeling down, depressed, or hopeless Not at all 07/23/2023 2:00 PM EDT Quyen Mcadams LP N Patient Health Questionnaire -2 Score 0 07/23/2023 2:00 PM EDT Quyen Mcadams LP N documented as of this encounter Plan of Treatment Upcoming Encounters Date Type Department Care Team (Late st Contact Info) Description 09/01/2025 1:00 PM EDT Office Visit [facility] [address] [place] [address] Patti Thomas DO [address] [place] [address] documented as of this encounter Visit Diagnoses Not on filedocumented in this encounter Care Teams Cash Register Operator Relationship Specialty Start Date End Date Patti Thomas DO [address] [place] [address] PCP - ACO Reach 04/02/23 Patti Thomas DO [address] [place] [address] PCP - General Internal Medicine 03/17/23 07/21/23 Patti Thomas DO [address] [place] [address] PCP - General Internal Medicine 07/23/23 Tri Watt MD [address] [address] Referring Physician Dermatology 07/22/23 Zhang Kessler MD [address] [place] [address] Referring Physician Ophthalmology 07/22/23 Frank Griffith MD [address] [place] [address] Referring Physician Urology 07/22/23 Ten Eckert MD [address] [place] [address] Referring Physician Cardiac Electrophysiology 07/22/23 Shameka Sinclair, SUPERVISOR [employer] [address] [facility] [address] [place] [address] Licensed Practical Nurse Family Medicine 04/26/25 04/26/25 Luana Hutchinson, RN [address] [facility] [address] [place] [address] Registered Nurse Family Medicine 04/26/25 documented as of this encounter
--- OUTSIDE RECORDS SUMMARY | 2025-05-31 09:13 | XMS_ITS | Encounter Summary ---
Author Organization [facility] Address [address] [facility] [place] [address] Care Team Providers Care Maintenance Service Technician Name Role Phone Patti Thmoas DO Unavailable [phone] Tri Watt MD Unavailable [phone] Zhang Kessler MD Unavailable [phone] Frank Griffith MD Unavailable [phone] Ten Eckert MD Unavailable Patti Thomas DO Primary Care Provider Shameka Sinclair LPN Unavailable [phone] Luana Hutchinson RN Unavailable [phone] Encounter Details Date Type Department Care Team (Late st Contact Info) Description 03/22/2025 Orders Only [facility] [address] [facility] [address] [place] [address] Unallocated, Noms Provider, [address] [place] [address] Social History Tobacco Use Types Packs/Day Years [...] IM [address] [place] [address] Patti Thomas DO [address] [facility] [address] [place] [address] documented as of this encounter Procedures Procedure Name Priority Date/Time Associated Diagnosis Comments ECG 12-LEAD Routine 03/21/2025 9:20 AM EDT documented in this encounter Results * ECG 12 lead (03/21/2025 9:20 AM EDT) us Noms Provider Unallocated MD ECG ORDERABLES Fin al Result documented in this encounter Visit Diagnoses Not on filedocumented in this encounter Care Teams Maintenance Service Technician Relationship Specialty Start Date End Date Patti Thomas DO [address] [facility] [address] [place] [address] PCP - ACO Reach 04/02/23 Patti Thomas DO [address] [facility] [address] [place] [address] PCP - General Internal Medicine 07/23/23 Tri Watt MD [address] [address] Referring Physician Dermatology 07/22/23 Zhang Kessler MD [address] [place] [address] Referring Physician Ophthalmology 07/22/23 Frank Griffith MD [address] [place] [address] Referring Physician Urology 07/22/23 Ten Eckert MD [address] [place] [address] Referring Physician Cardiac Electrophysiology 07/22/23 Shameka Sinclair, MIESHA [address] [facility] [address] [place] [address] Licensed Practical Nurse Family Medicine 04/26/25 04/26/25 Luana Hutchinson, DENISHA [address] [facility] [address] [place] [address] Registered Nurse Family Medicine 04/26/25 documented as of this encounter
--- OUTSIDE RECORDS SUMMARY | 2025-05-31 09:13 | XMS_ITS | Encounter Summary ---
Author Organization [facility] Address [address] [place] [address] Care Team Providers Care Carpenter Supervisor Wooden Ship Name Role Phone Patti Thomas MD Primary Care Provider [phone] Encounter Details Date Type Department Care Team (Late st Contact Info) Description 05/24/2025 Orders Only [place] [address] [place] [address] Emani Gomez MA Essential hypertension (Primary Dx) Social History Tobacco Use Types Packs/Day Years [...] Description 07/03/2025 9:40 AM EDT Office Visit [facility] [address] [place] [address] Kenn Koenig, ETHOLOGIST [address] [place] [address] Scheduled Orders Name Type Priority Associated Diagnoses Orde r Schedule Basic metabolic panel Lab Routine Essential hypertension Expected: 05/24/2025 (Approximate), Expires: 05/24/2026 documented as of this encounter Visit Diagnoses Diagnosis Essential hypertension- Primary Unspecified essential hypertension documented in this encounter Care Teams Carpenter Supervisor Wooden Ship Relationship Specialty Start Date End Date Patti Thomas MD [address] PCP - General 11/05/22 documented as of this encounter
--- OUTSIDE RECORDS SUMMARY | 2025-05-31 09:13 | XMS_ITS | Encounter Summary ---
Author Organization [facility] Address [address] [facility] [place] [address] Care Team Providers Care Aeronautical Research Engineer Name Role Phone Patti Thomas DO Unavailable [phone] Tri Watt MD Unavailable [phone] Zhang Kessler MD Unavailable [phone] Frank Griffith MD Unavailable [phone] Ten Eckert MD Unavailable Patti Thomas DO Primary Care Provider Shameka Sinclair LPN Unavailable [phone] Luana Hutchinson RN Unavailable [phone] Encounter Details Date Type Department Care Team (Late st Contact Info) Description 03/24/2025 Orders Only [facility] [address] [facility] [address] [place] [address] Carlitos Soria MD [address] [place] [address] Social History Tobacco Use Types Packs/Day Years [...] IM [address] [place] [address] Patti Thomas DO [address] [place] [address] documented as of this encounter Procedures Procedure Name Priority Date/Time Associated Diagnosis Comments UA WITH CULT RFLX Routine 03/18/2025 12: 49 PM EDT CBC WITH AUTO DIFFERENTIAL Routine 03/18/2025 12:49 PM EDT BASIC METABOLIC PANEL Routine 03/18/2025 12:49 PM EDT ECG 12-LEAD Routine 03/18/2025 12:47 PM EDT documented in this encounter Results * Basic metabolic panel (03/18/2025 12:49 PM EDT) Blood Venous blood specimen / Unknown us Norbert Wild MD LAB BLOOD ORDERABLES Final Resul t * CBC auto differential (03/18/2025 12:49 PM EDT) Blood Venous blood specimen / Unknown us Norbert Wild MD LAB BLOOD ORDERABLES Final Resul t * UA WITH CULT RFLX (03/18/2025 12:49 PM EDT) us Norbert Wild MD LAB BLOOD ORDERABLES Final Resul t * ECG 12 lead (03/18/2025 12:47 PM EDT) us Carlitos Soria MD ECG ORDERABLES Final Result documented in this encounter Visit Diagnoses Not on filedocumented in this encounter Care Teams Aeronautical Research Engineer Relationship Specialty Start Date End Date Patti Thomas, [address] [place] [address] PCP - ACO Reach 04/02/23 Patti Thomas DO [address] [place] [address] PCP - General Internal Medicine 07/23/23 Tri Watt MD [address] [address] Referring Physician Dermatology 07/22/23 Zhang Kessler MD [address] [place] [address] Referring Physician Ophthalmology 07/22/23 Frank Griffith MD [address] [place] [address] Referring Physician Urology 07/22/23 Ten Eckert MD [address] [place] [address] Referring Physician Cardiac Electrophysiology 07/22/23 Shameka Sinclair LPN [address] [place] [address] Licensed Practical Nurse Family Medicine 04/26/25 04/26/25 Luana Hutchinson, DENISHA [address] [place] [address] Registered Nurse Family Medicine 04/26/25 documented as of this encounter
--- OUTSIDE RECORDS SUMMARY | 2025-05-31 09:13 | XMS_ITS | Encounter Summary ---
Author Organization [facility] Address [address] [place] [address] Care Team Providers Care Roll Form Operator Name Role Phone Patti Thomas DO Unavailable [phone] Tri Watt MD Unavailable [phone] Zhang Kessler MD Unavailable [phone] Frank Griffith MD Unavailable [phone] Ten Eckert MD Unavailable Patti Thomas DO Primary Care Provider Shameka Sinclair LPN Unavailable [phone] Luana Hutchinson RN Unavailable [phone] Encounter Details Date Type Department Care Team (Late st Contact Info) Description 03/07/2025 Results Follow-Up [facility] [address] [facility] [address] [facility] [address] [place] [address] Patti Thomas, DO [address] [facility] [address] [place], [place] [id number] Social History Tobacco Use Types Packs/Day Years [...] [address] [place] [address] Patti Thomas DO [address] [place] [address] documented as of this encounter Visit Diagnoses Not on filedocumented in this encounter Care Teams Roll Form Operator Relationship Specialty Start Date End Date Patti Thomas DO [address] [place] [address] PCP - ACO Reach 04/02/23 Patti Thomas DO [address] [place] [address] PCP - General Internal Medicine 07/23/23 Tri Watt MD [address] [address] Referring Physician Dermatology 07/22/23 Zhang Kessler MD [address] [place] [address] Referring Physician Ophthalmology 07/22/23 Frank Griffith MD [address] [place] [address] Referring Physician Urology 07/22/23 Ten Eckert MD [address] [place] [address] Referring Physician Cardiac Electrophysiology 07/22/23 Shameka Sinclair LPN [address] [facility] 230 [place] [address] Licensed Practical Nurse Family Medicine 04/26/25 04/26/25 Luana Hutchinson RN [address] [address] Registered Nurse Family Medicine 04/26/25 documented as of this encounter
--- OUTSIDE RECORDS SUMMARY | 2025-05-31 09:13 | XMS_ITS | Encounter Summary ---
Author Organization [facility] Address [address] [facility] [address] Care Team Providers Care Executive Housekeeper Name Role Phone Patti Thomas DO Unavailable [phone] Tri Watt MD Unavailable [phone] Zhang Kessler MD Unavailable Frank Griffith MD Unavailable [phone] Ten Eckert MD Unavailable Patti Thomas DO Primary Care Provider Shameka Sinclair LPN Unavailable [phone] Luana Hutchinson RN Unavailable [phone] Encounter Details Date Type Department Care Team (Late st Contact Info) Description 09/04/2023 Orders Only [facility] [address] [place] [address] A, Unknown Practice [address] [place] [address] Social History Tobacco Use Types Packs/Day Years Used Date Smoking Tobacco: Never Smokeless Tobacco: Never Alcohol Use Standard Drinks/Week Comments Not Currently 0 (1 standard drink = 0.6 oz pur e alcohol) caffeine: none PHQ-2 Answer Date Recorded Patient Health Questionnaire-2 [...] IM [address] [place] [address] Patti Thomas DO [address] [place] [address] documented as of this encounter Procedures Procedure Name Priority Date/Time Associated Diagnosis Comments DIABETES EYE EXAM Routine 09/04/2023 3:09 PM EDT documented in this encounter Results * Diabetes Eye Exam (09/04/2023 3:09 PM EDT) us Unknown Practice A HEALTH MAINTENANCE Final Resu lt documented in this encounter Visit Diagnoses Not on filedocumented in this encounter Care Teams Executive Housekeeper Relationship Specialty Start Date End Date Patti Thomas DO [address] [place] [address] PCP - ACO Reach 04/02/23 Patti Thomas DO [address] [place] [address] PCP - General Internal Medicine 07/23/23 Tri Watt MD [address] [address] Referring Physician Dermatology 07/22/23 Zhang Kessler MD [address]00 [place] [address] Referring Physician Ophthalmology 07/22/23 Frank Griffith MD [address] [place] [address] Referring Physician Urology 07/22/23 Ten Eckert MD [address] [place] [address] Referring Physician Cardiac Electrophysiology 07/22/23 Shameka Sinclair LPN [address] [place] [address] Licensed Practical Nurse Family Medicine 04/26/25 04/26/25 Luana Hutchinson, DENISHA [address] [place] [address] Registered Nurse Family Medicine 04/26/25 documented as of this encounter
--- OUTSIDE RECORDS SUMMARY | 2025-05-31 09:13 | XMS_ITS | Encounter Summary ---
Author Organization [facility] Address [address] [facility] [address] [place] [address] Care Team Providers Care Machine Cloth Examiner Name Role Phone Patit Thomas DO Unavailable [phone] Tri Watt MD Unavailable [phone] Zhang Kessler MD Unavailable [phone] Frank Griffith MD Unavailable [phone] Ten Eckert MD Unavailable Patti Thomas DO Primary Care Provider Shameka Sinclair LPN Unavailable [phone] Luana Hutchinson RN Unavailable [phone] Encounter Details Date Type Department Care Team (Late st Contact Info) Description 07/28/2023 Orders Only [facility] [address] [place] [address] A, Unknown Practice [address] [place] [address] Social History Tobacco Use Types Packs/Day [...] PM EDT documented as of this encounter Plan of Treatment Upcoming Encounters Date Type Department Care Team (Late st Contact Info) Description 09/01/2025 1:00 PM EDT Office Visit [facility] [address] [place] [address] Patti Thomas DO [address] [place] [address] documented as of this encounter Procedures Procedure Name Priority Date/Time Associated Diagnosis Comments US KIDNEY & BLADDER Routine 07/18/2021 4:30 PM EDT documented in this encounter Results * US KIDNEY & BLADDER (07/18/2021 4:30 PM EDT) Anatomical Region Laterality Modality Radiographic Mitzy ging us Unknown Practice A IMG XR PROCEDURES Final Resul t documented in this encounter Visit Diagnoses Not on filedocumented in this encounter Care Teams Machine Cloth Examiner Relationship Specialty Start Date End Date Patti Thomas DO [address] [place] [address] PCP - ACO Reach 04/02/23 Patti Thomas DO [address] [place] [address] PCP - General Internal Medicine 07/23/23 Tri Watt MD [address] [address] Referring Physician Dermatology 07/22/23 Zhang Kessler MD [address] [place] [address] Referring Physician Ophthalmology 07/22/23 Frank Griffith MD [address] [place] [address] Referring Physician Urology 07/22/23 Ten Eckert MD [address] [place] [address] Referring Physician Cardiac Electrophysiology 07/22/23 Shameka Sinclair LPN [address] [place] [address] Licensed Practical Nurse Family Medicine 04/26/25 04/26/25 Luana Hutchinson, RN [address] [place] [address] Registered Nurse Family Medicine 04/26/25 documented as of this encounter
--- OUTSIDE RECORDS SUMMARY | 2025-05-31 09:13 | XMS_ITS | Encounter Summary ---
Author Organization [facility] Address [address] [facility] [address] [place] [address] Care Team Providers Care Drag Out Man Name Role Phone Patti Thomas DO Unavailable [phone] Tri Wtat MD Unavailable [phone] Zhang Kessler MD Unavailable [phone] Frank Griffith MD Unavailable [phone] Ten Eckert MD Unavailable Patti Thomas DO Primary Care Provider Shameka Sinclair LPN Unavailable [phone] Luana Hutchinson RN Unavailable [phone] Encounter Details Date Type Department Care Team (Late st Contact Info) Description 09/05/2024 Orders Only [facility] [address] [place] [address] A, Unknown Practice [address] [place] [address] Social History Tobacco Use Types Packs/Day [...] IM [address] [place] [address] Patti Thomas DO [address] [place] [address] documented as of this encounter Procedures Procedure Name Priority Date/Time Associated Diagnosis Comments DIABETIC RETINOPATHY SCREENING - OU - BOTH EYES Routine 09/05/2024 3:09 PM EDT documented in this encounter Results * Diabetic Retinopathy Screening - OU - Both Eyes (09/05/2024 3:09 PM EDT) Anatomical Region Laterality Modality Head Other us Unknown Practice A OPHTH PHOTOGRAPHY Edited Resu lt - Final documented in this encounter Visit Diagnoses Not on filedocumented in this encounter Care Teams Drag Out Man Relationship Specialty Start Date End Date Patti Thomas DO [address] [place] [address] PCP - ACO Reach 04/02/23 Patti Thomas DO [address] [place] [address] PCP - General Internal Medicine 07/23/23 Tri Watt MD [address] [address] Referring Physician Dermatology 07/22/23 Zhang Kessler MD 2600 [place] [address] Referring Physician Ophthalmology 07/22/23 Frank Griffith MD [address] [place] [address] Referring Physician Urology 07/22/23 Ten Eckert MD [address] [place] [address] Referring Physician Cardiac Electrophysiology 07/22/23 Shameka Sinclair, MIESHA [address] [place] [address] Licensed Practical Nurse Family Medicine 04/26/25 04/26/25 Luana Hutchinson, DENISHA [address] [facility] [address] [place] [address] Registered Nurse Family Medicine 04/26/25 documented as of this encounter
--- OUTSIDE RECORDS SUMMARY | 2025-05-31 09:13 | XMS_ITS | Clinical Summary ---
Author Organization [facility] Address [address] [place] [address] Care Team Providers Care Senior Wind Energy Consultant Name Role Phone Patti Thomas MD Primary Care Provider [phone] Allergies Active Allergy Reactions Criticality Noted Date Comments Adhesive Tape-Silicones 11/05/2022 Hydrochlorothiazide Unknown 07/19/2021 Penicillins Other,Rash,Unknown Low 06/03/2019 Spironolactone Rash Low 05/25/2025 Medications amLODIPine (Norvasc) 10 mg tablet amlodipine 10 mg tablet TAKE ONE TABLET BY MOUTH DAILY Active apixaban (Eliquis) 5 mg tablet Eliquis 5 mg tablet TAKE ONE TABLET BY MOUTH TWICE A DAY 02/06/20 22 Active fosinopril (Monopril) 40 mg tablet fosinopril 40 mg tablet TAKE ONE TABLET BY MOUTH DAILY FOR 90 DAYS 03/19/20 19 Active metFORMIN (Glucophage) 500 mg tablet Take 500 mg by mouth with breakfast. 05/06/20 19 Active omeprazole (PriLOSEC) [address] capsule omeprazole 20 mg capsule,delayed release TAKE ONE CAPSULE BY MOUTH ONCE DAILY 30 MINUTES BEFORE MEAL Active potassium chloride CR (Klor-Con M20) 20 mEq ER tablet potassium chloride ER 20 mEq tablet,extended release(part/cr yst) TAKE ONE TABLET BY MOUTH THREE TIMES A DAY 06/03/20 19 Active simvastatin (Zocor) 40 mg tablet simvastatin 40 mg tablet TAKE ONE TABLET BY MOUTH DAILY FOR 90 DAYS 03/16/20 19 Active empagliflozin (Jardiance) 25 mg Take 12.5 mg by mouth in the morning. 04/11/20 24 Active cloNIDine (Catapres) 0.1 mg tabletIndications :Essential hypertension Take 1 tablet (0.1 mg) by mouth in the morning and at bedtime. 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 180 tablet 3 11/22/19 25 026 Active amiodarone (Pacerone) 200 mg tabletIndications :PAF (paroxysmal atrial fibrillation) (CMS/HCC) Take 2 tablets (400 mg) by mouth two times daily for 14 days, THEN 1 tablet (200 mg) once daily as directed. 146 tablet 03/21/20 25 025 Active Additional Information Patient taking differently: 1 tablet daily, Reported on 05/15/2025 spironolactone (Aldactone) 25 mg tabletIndications :Primary hypertension Take 0.5 tablets (12.5 mg) by mouth in the morning. 15 tablet 5 05/15/20 25 026 Active metoprolol succinate XL (Toprol-XL) 25 mg 24 hr tabletIndications :Atrial fibrillation status post cardioversion (CMS/HCC) Take 1 tablet (25 mg) by mouth in the morning. Do not crush or chew. 30 tablet 5 05/15/20 25 026 Active metoprolol succinate XL (Toprol-XL) 50 mg 24 hr tablet metoprolol succinate ER 50 mg tablet,extended release 24 hr TAKE ONE TABLET BY MOUTH DAILY FOR 90 DAYS 01/18/20 20 025 Discontin ued(Reord er) lisinopril 40 mg tablet Take 40 mg by mouth in the morning. 025 Discontin ued(Med List Cleanup) Active Problems Problem Noted Date Diagnosed Date [...] Dermatitis 04/05/2024 CPAP (continuous positive airway pressure) veronica johnson 12/01/2023 Overview (05/24/2024): He reports he is using nightly and continues to have good response Acquired hammer toe of left foot 10/26/2023 10/26/2023 Callus 10/26/2023 10/26/2023 Diabetic peripheral neuropat hy associated with type 2 diabetes mellitus 10/26/2023 10/26/2023 Encounter for therapeutic drug level monitoring 10/26/2023 10/26/2023 Hypokalemia 10/26/2023 10/26/2023 snf (current) use of anticoagulants 202210/26/2023 Tinea unguium [...] flecainide on follow up with Dr. Eckert -[id number]: 3 Third degree heart block 08/03/2020 Diverticulitis [...] lipids on follow to assess further interventions Encounters Date Type Department Care Team Description 05/24/[address] [facility] [address] [place] [facility] [place] [address] Emani Gomez MA Essential hypertension (Primary Dx) 05/23/[address] [facility] [address] [place] [facility] [place] [facility] [place] [address] Emani Gomez MA 05/15/2025 9:40 AM EDT Follow-Up [facility] [address] [place] [facility] [place] [address] Kenn Koenig, KENNY PAF (paroxysmal atrial fibrillation) (CMS/HCC); Atrial fibrillation status post cardioversion (CMS/HCC); Primary hypertension; Mixed hyperlipidemia 04/12/[address] [facility] [address] [place] [facility] [place] [address] Ricarda Albrecht MA 04/12/[address] [facility] [address] [place] [facility] [place] [address] Makenzie Bruner MD 04/10/2025 8:30 AM EDT - 04/10/2025 9:30 AM EDT Surgery [facility] Heart [facility] Vascular [facility] [address] [place] [address] Ten Eckert MD Cardioversion 04/10/2025 6:41 AM EDT - 04/10/2025 10:19 AM EDT Hospital Encounter [facility] [address] [place] [address] Ten Eckert MD PAF (paroxysmal atrial fibrillation) (CMS/HCC) Discharge Disposition: Home or Self Care () 04/10/2025 Travel 04/07/[address] [facility] [address] [place] [facility] [place] [address] ProviderMakenzie MD 03/31/2025 Travel 03/31/2025 Orders Only [facility] [address] [place] [address] Arielle Zuniga, DENISHA Persistent atrial fibrillation (CMS/HCC) (Primary Dx) 03/21/2025 10:30 AM EDT Office Visit [facility] [address] [place] [facility] [place] [address] Ten Eckert MD PAF (paroxysmal atrial fibrillation) (CMS/HCC) 03/21/[address] [facility] [address] [place] [facility] [place] [address] Mariel Stratton MA PAF (paroxysmal atrial fibrillation) (CMS/HCC) 03/21/[address] [facility] [address] [place] [address] Ricarda Albrecht MA Palpitations; Longstanding persistent atrial fibrillation (CMS/HCC) from Last 3 Months Family History Medical History Relation Name Comments pacemaker Father Cancer Mother Relation Name Status Comments Brother Alive Father Mother Sister Alive Social History Tobacco Use Types Packs/Day Years [...] 14 04/10/2025 10:02 AM EDT Oxygen Saturation 98% 05/15/2025 9:32 AM EDT Inhaled Oxygen Concentration - - Weight 103 kg (228 lb) 05/15/2025 9:32 AM EDT Height 193 cm (6' 4 ) 05/15/2025 9:32 AM EDT Body Mass Index 27.75 05/15/2025 9:32 AM EDT Plan of Treatment Upcoming Encounters Date Type Department Care Team (Late st Contact Info) Description 07/03/2025 9:40 AM EDT Office Visit [facility] [address] [place] [address] Kenn Koenig, POSITIVE PRINTER OPERATOR [address] [place] [address] Health Maintenance Due Date Last Done Comments CT Colonography 1950 FIT-DNA 1950 FOBT 1950 Medicare Annual Wellness (AWV) 1950 Sigmoidoscopy 1950 Diabetes: Retinopathy Screening 1960 Depression Screening 1962 Pneumococcal Vaccine: 50+ Years (1 of 2 - PCV) 1969 Zoster Vaccines (1 of 2) 2000 Fall Risk Screening 2015 FIT 08/04/2023 08/04/2022 COVID-19 Vaccine ( season) 2024 01/29/2021, 01/07/2021 Diabetes: Hemoglobin A1C 09/15/2024 06/15/2024, 03/09 Influenza Vaccine (#1) 2025 , 07/23/2023, 08/09/2022, Additional history exists Adult Tetanus 10/06/2027 10/06/2017 Colonoscopy 11/06/2032 11/06/2022 Colorectal Cancer Screening 11/06/2032 HIB Vaccines Aged Out No longer eligi ble based on patient's age to complete this topic HPV Vaccines Aged Out No longer eligi ble based on patient's age to complete this topic IPV Vaccines Aged Out No longer eligi ble based on patient's age to complete this topic Meningococcal B Vaccine Aged Out No l onger eligible based on patient's age to complete this topic Meningococcal Vaccine Aged Out No cari juvenal eligible based on patient's age to complete this topic Rotavirus Vaccines Aged Out No longer eligible based on patient's age to complete this topic Procedures Procedure Name Priority Date/Time Associated Diagnosis Comments ECG 12 LEAD UNIT PERFORMED Routine 05/15/2025 9:31 AM EDT PAF (paroxysmal atrial fibrillation) ([facility]/HCC) Atrial fibrillation status post cardioversion (CMS/[facility]) ECG 12-LEAD Routine 04/10/2025 9:49 AM EDT [...] 3 Months Results * ECG 12 lead unit performed (05/15/2025 9:31 AM EDT) Only the most recent of2 resultswithin the time period is included. us Kenn Koenig CNP ECG ORDERABLES Final Result * ECG 12 lead (04/10/2025 9:49 AM EDT) Only the most recent of3 resultswithin the time period is included. Ventricular Rate 44 BPM GE MUSE Atrial Rate 44 BPM GE MUSE PA Interval 220 ms GE MUSE QRS DURATION 94 ms GE MUSE QT Interval 484 ms GE MUSE QTC CALCULATION(BAZE TT) 413 ms GE MUSE P [place] 22 degrees GE MUSE R-[place] 3 degrees GE MUSE T Wave [place] 5 degrees GE MUSE 04/10/2025 9:44 AM [...] Provider LAB BLOOD ORDERABLES Reema l Result from Last 3 Months Insurance MEDICARE GENERIC OTHER Care Teams Senior Wind Energy Consultant Relationship Specialty Start Date End Date Patti [place] MD [address] [facility] [address] PCP - General 11/05/22
--- OUTSIDE RECORDS SUMMARY | 2025-05-31 09:14 | XMS_ITS | Encounter Summary ---
Author Organization [facility] Address [address] [facility] [place] [address] Care Team Providers Care Sweep Molder Name Role Phone Patti Thomas DO Unavailable [phone] Tri Watt MD Unavailable Zhang Kessler MD Unavailable [phone] Frank Griffith MD Unavailable [phone] Ten Eckert MD Unavailable Patti Thomas DO Primary Care Provider Luana Hutchinson RN Unavailable [phone] Reason for Visit * Reason Onset Date Comments Med Refill 05/23/2025 Encounter Details Date Type Department Care Team (Late st Contact Info) Description 05/23/2025 Refill [facility] [address] [facility] [address] [place] [address] Maral Soares LPN Mixed hyperlipidemia ; Primary hypertension Social History Tobacco Use Types Packs/Day Years [...] IM [address] [place] [address] Patti [place] DO [address] [place] [address] documented as of this encounter Visit Diagnoses Diagnosis Mixed hyperlipidemia Mixed hyperlipidemia Primary hypertension Unspecified essential hypertension documented in this encounter Care Teams Sweep Molder Relationship Specialty Start Date End Date Patti [place] DO [address] [place] [address] PCP - ACO Reach 04/02/23 Patti [place] DO [address] [place] [address] PCP - General Internal Medicine 07/23/23 Tri Watt MD [address] [address] Referring Physician Dermatology 07/22/23 Zhang Kessler MD [address] [place] [address] Referring Physician Ophthalmology 07/22/23 Frank Griffith MD [address] [facility] [place] [address] Referring Physician Urology 07/22/23 Ten Eckert MD [address] [facility] [address] [facility] [place] [address] Referring Physician Cardiac Electrophysiology 07/22/23 Luana Hutchinson, RN [address] [place] [address] Registered Nurse Family Medicine 04/26/25 documented as of this encounter
[2025-05-31 10:34] LABS: Anion Gap 14.8; Blood Urea Nitrogen 20.0 mg/dL (7.0-18.0); Calcium 8.9 mg/dL (8.5-10.1); Carbon Dioxide 27.0 mmol/L (21.0-32.0); Chloride 105 mmol/L (98-107); Estimated GFR (African America >60 (>=60 mL/min/1.73m^2); Estimated GFR (Non-African Ame 58 (>=60 mL/min/1.73m^2); Glucose 200 mg/dL (74-106); Potassium 3.8 mmol/L (3.5-5.1); Sodium 143 mmol/L (136-145)
== END 2025-05-31 09:10 | disposition home or self-care (01) ==
LOC: LAB 09:11
PROVIDERS: PCP Internal Medicine
DX: I10 Essential (primary) hypertension (principal)
CPT/HCPCS: 36415; 80048

== ENCOUNTER 2025-07-17 07:45 | Outpatient (OUT) | payer MEDICARE, OTHER, SELFPAY ==
--- OUTSIDE RECORDS SUMMARY | 2025-07-03 09:40 | XMS_ITS | Encounter Summary ---
Author Organization [facility] Address [address] [facility] [place] [address] Care Team Providers Care Patient Care Representative Name Role Phone Patti Thomas MD Primary Care Provider [phone] Encounter Details Date Type Department Care Team (Late st Contact Info) Description 07/03/2025 9:40 AM EDT Office Visit [facility] [address] [place] [address] Kenn Koenig, [employer] [address] [place] [address] PAF (paroxysmal atrial fibrillation) (CMS/HCC) (Primary Dx); Primary hypertension; Mixed hyperlipidemia Social History Tobacco [...] Value Date Recorded Sex Assigned at Male 06/27/2025 3:15 PM EDT Legal Sex Male 12:30 AM EDT Gender Identity Male 06/27/2025 3:15 PM EDT Sexual Orientation Heterosexual or Straight 06/09 3:15 PM EDT documented as of this encounter Last Filed Vital Signs Vital Sign Reading Time Taken Comments Blood Pressure 152/65 07/03/2025 9:27 AM EDT Pulse 48 07/03/2025 9:27 AM EDT Temperature - - Respiratory Rate - - Oxygen Saturation 98% 07/03/2025 9:27 AM EDT Inhaled Oxygen Concentration - - Weight 104 kg (229 lb) 07/03/2025 9:27 AM EDT Height 193 cm (6' 4 ) 07/03/2025 9:27 AM EDT Body Mass Index 27.87 07/03/2025 9:27 AM EDT documented in this encounter Progress Notes * Kenn Koenig, KENNY - 07/03/2025 9:40 AM EDT Images from the original note were not included. SUBJECTIVE Reason for Visit: Maikel Tomlin is a 74 y.o. year old male patient being seen for follow-up visit. HPI: Maikel Tomlin is a 74 y.o. year old male with significant medical history of paroxysmal atrial fibrillation, previously treated with pulmonary vein isolation on 11/27/2020 and direct current cardioversion (DCCV) on 01/09/2021, most recently underwent successful DCCV on 04/10/[address] Eckert with jewish of sinus rhythm. His medical history is also notable for hypertension and hyperlipidemia. 07/03/2025 office visit: Patient seen and evaluated in the office today, accompanied by his . He denies chest pain and reports stable shortness of breath. 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 He requires a few breaks, but otherwise his SOB remains stable. He was noted to have askin rash after starting spironolactone. He was due for dermatology appointment and actually received a biopsy which confirmed medication reaction. Otherwise, denies lightheadedness or dizziness, palpitations. Endorses lower extremity edema. Trace lower extremity edema on exam. He is to call in approximately 1 to 2 weeks to report his blood pressures and we will make adjustments to his medication based on readings. 05/15/2025 office visit: Patient seen and evaluated [...] here today for a follow up from [facility]. Patient states he was in [...] not heard. Diastolic Murmur: not heard. Extremities: +1 LE edema. Peripheral Pulses: Pulses: full and equal in all extremities except if noted. Abdomen: Inspection and Palpation: non distended or tender and soft. Musculoskeletal: Inspection: no joint tenderness or swelling. Neurologic: Gait: normal gait. Psychiatric: Mental Status: alert and normal affect. Skin: Inspection and Palpation: warm and dry. Allergies: Allergies[5] Outpatient Medications: Current Outpatient Medications Medication Instructions amiodarone (PACERONE) 200 mg, oral, Daily, 1 tablet daily amLODIPine (Norvasc) 10 mg tablet amlodipine 10 mg tablet TAKE ONE TABLET BY MOUTH DAILY apixaban (Eliquis) 5 mg tablet Eliquis 5 mg tablet TAKE ONE TABLET BY MOUTH TWICE A DAY cloNIDine (CATAPRES) 0.1 mg, oral, 2 times daily cloNIDine (CATAPRES) 0.2 mg, oral, 2 times daily empagliflozin (JARDIANCE) 12.5 mg, Daily fosinopril (Monopril) 40 mg tablet fosinopril 40 mg tablet TAKE ONE TABLET BY MOUTH DAILY FOR 90 DAYS metFORMIN (GLUCOPHAGE) 500 mg, Daily with breakfast metoprolol succinate XL (TOPROL-XL) 25 mg, oral, Daily, Do not crush or chew. omeprazole (PriLOSEC) [address] capsule omeprazole [...] TABLET BY MOUTH DAILY FOR 90 DAYS spironolactone (ALDACTONE) 12.5 mg, oral, Daily Recent Labs: Admission on 04/10/2025, Discharged on 04/10/2025 Component Date Value Ventricular Rate 04/10/2025 54 QRS DURATION 04/10/2025 88 QT Interval 04/10/2025 492 QTC CALCULATION(BAZETT) 04/10/2025 466 R-[place] 04/10/2025 -1 T Wave [place] 04/10/2025 -3 Ventricular Rate 04/10/2025 44 Atrial Rate 04/10/2025 44 AL Interval 04/10/2025 220 QRS DURATION 04/10/2025 94 QT Interval 04/10/2025 484 QTC CALCULATION(BAZETT) 04/10/2025 413 P [place] 04/10/2025 22 R[place] 04/10/2025 3 T Wave [place] 04/10/2025 5 Labs 05/31/2025: Sodium 143, potassium 3.8, BUN 20, creatinine 1.23, eGFR 58, glucose 200,Calcium 8.9. I have personally reviewed and anaylzed the [...] Value Ventricular Rate 44 Atrial Rate 44 AL Interval 220 QRS DURATION 94 QT Interval 484 QTC CALCULATION(BAZETT) 413 P [place] 22 R-[place] 3 T Wave [place] 5 Impression Marked sinus bradycardia with 1st [...] clinical status. Assessment and Plan #Paroxysmal A-fib [id number] = 3 Previously treated with pulmonary vein isolation on 11/27/2020 and direct current cardioversion (DCCV) on 01/09/2021, most recently underwent successful DCCV on 04/10/[address] Eckert with jewish of sinus rhythm 12 ECG today 47 bpm with first-degree AV block - Continue amiodarone 200 mg daily - Continue metoprolol succinate 25 mg daily (decreased prior visit 05/15/2025 HR was low 40s) - Continue apixaban 5 mg twice daily #Hypertension Blood pressure today is 152/65, heart rate 48 Elevated Blood pressure at home is 140s 150s systolic from BP log Of note pt has allergy to thiazides Labs 05/31/2025: Sodium 143, potassium 3.8, BUN 20, creatinine 1.23, eGFR 58, glucose 200,Calcium 8.9. Prescribed lisinopril back in May of this year and developed a rash ---> biopsied per dermatology demonstrating medication reaction Of note has allergy to thiazides - Continue Fosinopril 40 mg daily - Continue amlodipine 10 mg daily - Continue clonidine 0.2 mg twice daily - Will add torsemide 10 mg daily #Hyperlipidemia Most recent lipid panel reviewed, 08/29/2024: LDL 91, HDL 35, triglycerides 57, total cholesterol 135 Stable - Continue simvastatin 40 mg daily #DM On Jardiance 25 mg daily Plan Overview: Will add torsemide 10 mg daily ---> BMP in one week Follow-up in 3 months This note was partially composed using voice recognition software. While every effort was made to ensure accuracy, some unintentional advisory internship errors may be present. 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 [address] [place] [address] Kenn Koenig CNP [address] [place] [address] Scheduled Orders Name Type Priority Associated Diagnoses Orde r Schedule Basic metabolic panel Lab Routine Primary hypertension Expected: 07/03/2025 (Approximate), Expires: 07/03/2026 documented as of this encounter Visit Diagnoses Diagnosis PAF (paroxysmal atrial fibrillation) (CMS/HCC)- Primary Atrial fibrillation Primary hypertension Unspecified essential hypertension Mixed hyperlipidemia documented in this encounter Care Teams Patient Care Representative Relationship Specialty Start Date End Date Patti Thomas MD [address] PCP - General 11/05/22 documented as of this encounter
--- OUTSIDE RECORDS SUMMARY | 2025-07-17 07:49 | XMS_ITS | Encounter Summary ---
Author Organization [facility] Address [address] [place] [address] Care Team Providers Care Tobacco Grader Name Role Phone Patti Thomas DO Unavailable [phone] Tri Watt MD Unavailable [phone] Zhang Kessler MD Unavailable [phone] Frank Griffith MD Unavailable [phone] Ten Eckert MD Unavailable Patti Thomas DO Primary Care Provider Shameka Sinclair LPN Unavailable [phone] Luana Hutchinson RN Unavailable [phone] Encounter Details Date Type Department Care Team (Late st Contact Info) Description 11/05/2023 Orders Only [facility] [address] [place] [id number] A, Unknown Practice [address] [place], [place] [id number] Social History Tobacco Use Types Packs/Day Years [...] 09/01/2025 1:00 PM EDT Office Visit [facility] [address] [place] [address] Patti Thomas DO [address] [place] [address] documented as of this encounter Procedures Procedure [...] on filedocumented in this encounter Care Teams Tobacco Grader Relationship Specialty Start Date End Date Patti Thomas DO [address] [facility] [address] [place] [address] PCP - ACO Reach 04/02/23 Patti Thomas DO [address] [facility] [address] [place] [address] PCP - General Internal Medicine 07/23/23 Tri Watt MD [address] [address] Referring Physician Dermatology 07/22/23 Zhang Kessler MD [address] [place] [address] Referring Physician Ophthalmology 07/22/23 Frank Griffith MD [address] [facility] [place] [address] Referring Physician Urology 07/22/23 Ten Eckert MD [address] [place] [address] Referring Physician Cardiac Electrophysiology 07/22/23 Shameka Sinclair, MIESHA [address] [facility] [address] [place] [address] Licensed Practical Nurse Family Medicine 04/26/25 04/26/25 Luana Hutchinson, DENISHA [address] [facility] [address] [place] [address] Registered Nurse Family Medicine 04/26/25 documented as of this encounter
--- OUTSIDE RECORDS SUMMARY | 2025-07-17 07:49 | XMS_ITS | Encounter Summary ---
Author Organization [facility] Address [address] [facility] [place] [address] Care Team Providers Care Extruder Operator Helper Name Role Phone Patti Thomas DO Unavailable [phone] Tri Watt MD Unavailable [phone] Zhang Kessler MD Unavailable [phone] Frank Griffith MD Unavailable Ten Eckert MD Unavailable Patti Thomas DO Primary Care Provider Shameka Sinclair LPN Unavailable [phone] Luana Hutchinson RN Unavailable [phone] Encounter Details Date Type Department Care Team (Late st Contact Info) Description 07/28/2023 Orders Only [facility] [address] [place] [id number] A, Unknown Practice [address] [place], [place] [id number] Social History Tobacco Use Types Packs/Day Years [...] Medicine [address] [place] [address] Patti Thomas DO [address] [place] [address] documented as of this encounter Procedures Procedure [...] on filedocumented in this encounter Care Teams Extruder Operator Helper Relationship Specialty Start Date End Date Patti Thomas DO [address] [place] [address] PCP - ACO Reach 04/02/23 Patti Thomas DO [address] [place] [address] PCP - General Internal Medicine 07/23/23 Tri Watt MD [address] [address] Referring Physician Dermatology 07/22/23 Zhang Kessler MD [address] [place] [address] Referring Physician Ophthalmology 07/22/23 Frank Griffith MD [address] [facility] [place] [address] Referring Physician Urology 07/22/23 Ten Eckert MD [address] [place] [address] Referring Physician Cardiac Electrophysiology 07/22/23 Shameka Sinclair LPN [address] [address] Licensed Practical Nurse Family Medicine 04/26/25 04/26/25 Luana Hutchinson, DENISHA [address] [address] Registered Nurse Family Medicine 04/26/25 documented as of this encounter
--- OUTSIDE RECORDS SUMMARY | 2025-07-17 07:49 | XMS_ITS | Encounter Summary ---
Author Organization [facility] Address [address] [place] [address] Care Team Providers Care Floor Waxer Name Role Phone Patti Thomas DO Unavailable [phone] Tri Watt MD Unavailable [phone] Zhang Kessler MD Unavailable [phone] Frank Griffith MD Unavailable [phone] Ten Eckert MD Unavailable Patti Thomas DO Primary Care Provider Shameka Sinclair LPN Unavailable [phone] Luana Hutchinson RN Unavailable [phone] Encounter Details Date Type Department Care Team (Late st Contact Info) Description 09/04/2023 Orders Only [facility] [address] [place] [id number] A, Unknown Practice [address] [place], [place] [id number] Social History Tobacco Use Types Packs/Day Years [...] Upcoming Encounters Date Type Department Care Team ([facility] Contact Info) Description 09/01/2025 1:00 PM EDT Office Visit [facility] [address] [place] [address] Patti Thomas DO [address] [place] [address] documented as of this encounter Procedures Procedure Name Priority Date/Time Associated Diagnosis Comments DIABETES EYE EXAM Routine 09/04/2023 3:09 PM EDT documented in this encounter Results * Diabetes Eye Exam (09/04/2023 3:09 PM EDT) us Unknown Practice [facility]INTENANCE Final Resu lt documented in this encounter Visit Diagnoses Not on filedocumented in this encounter Care Teams Floor Waxer Relationship Specialty Start Date End Date Patti Thomas DO [address] [place] [address] PCP - ACO Reach 04/02/23 Patti Thomas DO [address] [place] [address] PCP - General Internal Medicine 07/23/23 Tri Watt MD [address] [address] Referring Physician Dermatology 07/22/23 Zhang Kessler MD [address] [place] [address] Referring Physician Ophthalmology 07/22/23 Frank Griffith MD [address] [place] [address] Referring Physician Urology 07/22/23 Ten Eckert MD [address] [place] [address] Referring Physician Cardiac Electrophysiology 07/22/23 Shameka Sinclair LPN [address] [place] [address] Licensed Practical Nurse Family Medicine 04/26/25 04/26/25 Luana Hutchinson, DENISHA [address] [place] [address] Registered Nurse Family Medicine 04/26/25 documented as of this encounter
--- OUTSIDE RECORDS SUMMARY | 2025-07-17 07:49 | XMS_ITS | Clinical Summary ---
Author Organization [facility] Address [address] [place] [address] Care Team Providers Care Post Secondary Professional Name Role Phone Patti Thomas DO Unavailable [phone] Tri Watt MD Unavailable [phone] Zhang Kessler MD Unavailable [phone] Frank Griffith MD Unavailable [phone] Ten Eckert MD Unavailable Patti Thomas DO Primary Care Provider Luana Hutchinson RN Unavailable [phone] Allergies Active Allergy Reactions Criticality Noted Date Comments Hydrochlorothiazide Medium 07/20/2023 Other Reaction(s): low K+ and Mg++ Penicillin G Unknown Medium 07/20/2023 Spironolactone Other Medium 07/03/2025 Drug rash (confirmed by bx) Medications Eliquis 5 MG tablet Take 5 mg by mouth in the morning and 5 mg before bedtime. Active metoprolol succinate XL (Toprol-XL) 50 MG 24 hr tabletIndications: Hypertension, unspecified type TAKE ONE TABLET BY MOUTH DAILY FOR 90 DAYS 90 tablet 3 05/31/20 24 Active Additional Information Patient taking differently: 25 mg Daily, Reported on 06/07/2025 empagliflozin (Jardiance) 25 MG Take 0.5 tablets [...] Daily 90 tablet 3 05/23/20 25 Active Active Problems Problem Noted Date Diagnosed Date Knee joint stiffness, bilateral 08/09/2024 Overview (08/09/2024): At this time, not really interfering with function Advised can use topical Voltaren gel and do stretches (handouts provided) Dermatitis 04/05/2024 CPAP (continuous positive airway pressure) veronica johnson 12/01/2023 Overview (12/01/2023): He reports he [...] he will be having labs soon at [facility], so if LDL happens to be <50, would consider decrease in dose or simvastatin, but if LDL not at goal will change to a different statin rather than increase dose ---- 08/2024 LDL=91 Assessment & Plan (05/07/2025 4:58 PM EDT): -The importance of dietary modification, regular cardiovascular activity and compliance with any prescribed medication for fci management/control of lipids has been discussed. Since [...] and compliance with any prescribed medication for superintendent terminal management/control of lipids has been discussed. Since [...] be reduced. Persistent atrial fibrillation 07/20/2023 Overview (07/03/2025): -Prescribed Eliquis and metoprolol. -Previously treated with pulmonary vein isolation on 11/27/2020 and direct current cardioversion (DCCV) on 01/09/2021. 03/2025:Dr Eckert recently started him on amiodarone 200mg bid x 14 days and then 100mg daily. -Underwent successful DCCV on 04/10/[address] Eckert with congregational of sinus rhythm. Assessment & Plan (05/07/2025 5:00 PM EDT): At this time, he seems to to have maintained NSR (since the cardioversion) based on auscultation. Anticoagulation is being tolerated without any evidence of significant adverse effect. Will continue current regimen and monitoring. 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 -At this time, rate [...] Encounters Date Type Department Care Team Description 06/07/2025 Patient Outreach [facility] [address] [place] [address] Luana Hutchinson RN 05/23/2025 Refill [facility] [address] [place] [address] Maral Soares LPN Mixed hyperlipidemia ; Primary hypertension 05/04/2025 Patient Outreach [facility] [address] [place] [address] Luana Hucthinson RN 04/26/2025 11:15 AM EDT Office Visit [facility] [address] [place] [address] Patti Thomas, Diabetes mellitus with nephropathy (HCC) (Primary Dx); [...] Unsolicited Patti Thomas DO 04/20/2025 Patient Outreach [facility] [address] [place] [address] Luana Hutchinson RN 04/20/2025 Travel 04/17/2025 Telephone [facility] [address] [place] [address] Galindo Cruz MA from Last 3 Months Immunizations Immunization Administration [...] Medicine [address] [place] [address] Patti Thomas, [address] [place] [address] Health Maintenance Due Date Last Done Comments [...] Refused) Diabetes: Urine Protein Screening 02/22/2026 02/22/2025, 02/22/2025, 02/15/2024, Additional history exists Diabetes: Retinopathy Screening 09/05/2026 09/05/2024, 09/01/2022, 08/30/2021, Additional history exists Colonoscopy 11/06/2032 11/06/2022, 11/06/2022 Colorectal Cancer Screening 11/06/2032 Procedures Procedure Name Priority Date/Time Associated Diagnosis Comments POCT GLYCATED HEMOGLOBIN, TOTAL Routine 04/26/2025 11:38 AM EDT Diabetes mellitus with nephropathy (HCC) XR CHEST 2V 04/24/2025 9:24 AM EDT [facility] [place] RAT[facility] Routine 02/22/2025 9:40 AM EDT DIABETIC RETINOPATHY SCREENING - OU - BOTH EYES Routine 09/05/2024 3:09 PM EDT COLONOSCOPY Routine 11/06/2022 12:00 PM EST LAB COLOGUARD COLON CANCER SCREEN Routine 08/04/2022 from Last 3 Months or Most Recently Relevant to Health Maintenance Results * POCT Glycated hemoglobin, total (04/26/2025 11:38 AM EDT) Hemoglobin A1C 7.2 Blood 04/26/2025 11:3 8 AM EDT us Patti Thomas DO POINT OF CARE TEST ENTE R/EDIT ORDERABLES Final Result * XR CHEST 2V (04/24/2025 9:24 AM EDT) Anatomical Region Laterality Modality Other 04/24/2025 9:24 AM EDT Narrative 04/24/2025 9:26 AM EDT [address] [address] XRay Report Signed Patient: ALINE TOMLIN MR#: [id number] : 1950 Acct:[id number] Age/Sex: 74 / M ADM Date: 04/24/25 Loc: RAD Attending Dr: PATTI GONG Ordering Physician: PATTI DASILVA Date of Service: 04/24/25 Procedure(s): XR chest 2V Accession Number(s): [id number] cc: PATTI DASILVA [place] [id number] Patient Name: ALINE TOMLIN MRN: [id number] date: 1950 Sex: M Assigned Patient Location: [facility] Current Patient Location: RAD Accession/Order Number: [id number] Exam Date: 04/24/2025 09:22 Report Date: 04/24/2025 [...] Quispe M.D. 04/24/2025 9:24 AM Dictation Location: [place] [address] Electronically authenticated by: [id number] Y Date: 04/24/2025 09:24 Dictated By: Shilpi Quispe M.D. Signed By: 04/24/25925 DD/ 3 TD/TT: Administrative Office Clerk: Procedure Note Radiology, Radiologist, - 04/24/2025 [place] [address] XRay Report Signed Patient: ALINE TOMLIN LMR#: [id number] : 1950Acct:[id number] Age/Sex: 74 / MADM Date: 04/24/25 Loc: RAD Attending Dr: PATTI GONG Ordering Physician: PATTI DASILVA Date of Service: 04/24/25 Procedure(s): XR chest 2V Accession Number(s): [id number] cc: PATTI DASILVA [place] [address] Patient Name: ALINE TOMLIN MRN: [id number] date: 1950 Sex: M Assigned Patient Location: [facility] Current Patient Location: [facility] Accession/Order Number: [id number] Exam Date: 04/24/2025 09:22 Report Date: 04/24/2025 [...] Quispe M.D. 04/24/2025 9:24 AM Dictation Location: [place] [address] Electronically authenticated by: [id number] Y Date: 9:24 Dictated By: Shilpi Quispe M.D. Signed By:04/24/25925 DD/ 3 TD/TT: Administrative Office Clerk: us Patti Thomas DO [facility] Final Result * [facility]/CR RATIO (02/22/2025 9:40 AM EDT) [facility] ALBUMIN:MCNC:PT: URINE:QN:DETECTI ON LIMIT <= 20 MG/L 0.8 0.0 - 1.9 mg/dL [facility] U CREATININE 38.1 mg/dL [facility] ALBUMIN/CREATINI NE:MRTO:PT:URINE :QN:DETECTION LIMIT <= 20 MG/L 21.0 0.0 - 30.0 mg/gm Cr [facility] Comment: 30-300 mg/g Cr indicates an increased risk for diabetic nephropathy. >300 mg/g Cr is consistent with clinical nephropathy. Urine 02/22/2025 9:40 AM EDT 02/22/2025 10:26 AM EDT Narrative [facility] - 02/22/2025 10:57 AM EDT Original Ordering Provider: DO PATTI THOMAS Patti Thomas DO [facility] Final R esult [facility] * Diabetic Retinopathy Screening - OU - Both Eyes (09/05/2024 3:09 PM EDT) Anatomical Region Laterality Modality Head Other Unknown Practice A OPHTH PHOTOGRAPHY Edited Resu lt - Final * Colonoscopy (11/06/2022 12:00 PM EST) Anatomical Region Laterality Modality Endoscopy 11/06/2022 12:0 0 PM EST Narrative 11/06/2022 12:00 PM EST PERFORMED AT [facility] LOCATION:[id number] diverticulosis noted, negative for polyps, repeat in 5 yrs d/t positive cologuard Procedure Note CONVERSION, GENERIC - 03/25/2023 PERFORMED AT [facility] LOCATION:[id number] diverticulosis noted, negative for polyps, repeat in 5 yrs d/t positivecologuard us Patti Thomas DO ENDOSCOPY PROCEDURE ORD ERABLES Final Result * (ABNORMAL) Cologuard?? colon cancer screening (08/04/2022) COLOGUARD RESULT REPORTABLE Positive( A) Negative [facility] Comment: POSITIVE TEST RESULT. A [...] screened with both Cologuard and colonoscopy. (Mirian Santos et al, N Engl J Med 2014;370(14):1639-0243.) Cologuard may produce a false negative or false positive result (no colorectal cancer or precancerous polyp present at colonoscopy follow up). A negative Cologuard test result does not guarantee the absence of CRC or advanced adenoma (pre-cancer). The current Cologuard screening interval is every 3 years. ([place] [employer] Society and U.S. Multi-Society Task Force). Cologuard performance data in a 10,000 patient pivotal study using colonoscopy as the reference method can be accessed at the following location: www.[employer]/results. Additional description of the Cologuard test process, warnings and precautions can be found at [email or web address] [email or web address].com. 08/04/2022 Patti Thomas DO LAB MOLECULAR DIAGNOSTI CS ORDERABLES Final Result [facility] from Last 3 Months or Most Recently Relevant to Health Maintenance Insurance MEDICARE [employer] Care Teams Post Secondary Professional Relationship Specialty Start Date End Date Patti Thomas DO [address] [facility] [address] [place] [address] PCP - ACO Reach 04/02/23 Patti Thomas DO [address] [facility] [address] [place] [address] PCP - General Internal Medicine 07/23/23 Tri Watt MD [address] [address] Referring Physician Dermatology 07/22/23 Zhang Kessler MD [address] [place] [address] Referring Physician Ophthalmology 07/22/23 Frank Griffith MD [address] [place] [address] Referring Physician Urology 07/22/23 Ten Eckert MD [address] [place] [address] Referring Physician Cardiac Electrophysiology 07/22/23 Luana Hutchinson, DENISHA [address] [place] [address] Registered Nurse Family Medicine 04/26/25
--- OUTSIDE RECORDS SUMMARY | 2025-07-17 07:49 | XMS_ITS | Clinical Summary ---
Author Organization [facility] Address [facility] [place] [address] Care Team Providers Care Story Editor Name Role Phone Frank Griffith MD Unavailable [phone] Allergies Active Allergy Reactions Criticality Noted [...] N ot on file 10/16/2020 Data from: https://www.[email or web address].[email or web address]/. Last address used for calculation Not on [...] 2025 Insurance MEDICARE [employer] SU[employer]MENT Care Teams Story Editor Relationship Specialty Start Date End Date Frank Griffith MD [address] [place] [address] Referring Urology 07/26/19
--- OUTSIDE RECORDS SUMMARY | 2025-07-17 07:49 | XMS_ITS | Encounter Summary ---
Author Organization [facility] Address [address] [place] [address] Care Team Providers Care Yard Operator Name Role Phone Patti Thomas DO Unavailable [phone] Tri Watt MD Unavailable [phone] Zhang Kessler MD Unavailable [phone] Frank Griffith MD Unavailable [phone] Ten Eckert MD Unavailable Patti Thomas DO Primary Care Provider Shameka Sinclair LPN Unavailable [phone] Luana Hutchinson RN Unavailable [phone] Encounter Details Date Type Department Care Team (Late st Contact Info) Description 03/07/2025 Results Follow-Up [facility] [address] [address] [place] [address] Patti Thomas DO [address] [facility] [address] [place], [place] [id number] [facility] MA/CR RATIO Social History Tobacco Use Types Packs/Day Years [...] Medicine [address] [place] [address] Patti Thomas DO [address] [place] [address] documented as of this encounter Visit Diagnoses Not on filedocumented in this encounter Care Teams Yard Operator Relationship Specialty Start Date End Date Patti Thomas DO [address] [place] [address] PCP - ACO Reach 04/02/23 Patti Thomas DO [address] [place] [address] PCP - General Internal Medicine 07/23/23 Tri Watt MD [address] [address] Referring Physician Dermatology 07/22/23 Zhang Kessler MD [address] [place] [address] Referring Physician Ophthalmology 07/22/23 Frank Griffith MD [address] [place] [address] Referring Physician Urology 07/22/23 Ten Eckert MD [address] [place] [address] Referring Physician Cardiac Electrophysiology 07/22/23 Shameka Sinclair LPN [address] [address] Licensed Practical Nurse Family Medicine 04/26/25 04/26/25 Luana Hutchinson, DENISHA [address] [address] Registered Nurse Family Medicine 04/26/25 documented as of this encounter
--- OUTSIDE RECORDS SUMMARY | 2025-07-17 07:49 | XMS_ITS | Encounter Summary ---
Author Organization [facility] Address [address] [facility] [place] [address] Care Team Providers Care Panman Name Role Phone Patti Thomas DO Unavailable [phone] Patti Thomas DO Primary Care Provider Tri Watt MD Unavailable [phone] Zhang Kessler MD Unavailable Frank Griffith MD Unavailable [phone] Ten Eckert MD Unavailable Patti Thomas DO Primary Care Provider Shameka Sinclair LPN Unavailable Luana Hutchinson RN Unavailable [phone] Encounter Details Date Type Department Care Team (Late st Contact Info) Description 07/20/2023 Orders Only [facility] [address] [facility] [facility] [facility] [address] [place] [address] Emani Cavazos, ROPE RIDER [address] [place] [address] Social History Tobacco Use Types [...] Medicine [address] [place] [address] Patti Thomas DO [address] [place] [address] documented as of this encounter Visit Diagnoses Not on filedocumented in this encounter Care Teams Panman Relationship Specialty Start Date End Date Patti Thomas DO [address] [place] [address] PCP - ACO Reach 04/02/23 Patti Thomas DO [address] [place] [address] PCP - General Internal Medicine 03/17/23 07/21/23 Patti Thomas DO [address] [place] [address] PCP - General Internal Medicine 07/23/23 Tri Watt MD [address] [address] Referring Physician Dermatology 07/22/23 Zhang Kessler MD [address] [place] [address] Referring Physician Ophthalmology 07/22/23 Frank Griffith MD [address] [place] [address] Referring Physician Urology 07/22/23 Ten Eckert MD [address] [place] [address] Referring Physician Cardiac Electrophysiology 07/22/23 Shameka Sinclair, SUPPORT ASSISTANT [address] [facility] [address] [place] [address] Licensed Practical Nurse Family Medicine 04/26/25 04/26/25 Luana Hutchinson, RN [address] [facility] [address] [place] [address] Registered Nurse Family Medicine 04/26/25 documented as of this encounter
--- OUTSIDE RECORDS SUMMARY | 2025-07-17 07:49 | XMS_ITS | Encounter Summary ---
Author Organization [facility] Address [address] [facility] [place] [address] Care Team Providers Care Clinical Staff Anesthesiologist Name Role Phone Patti Thomas DO Unavailable [phone] Tri Watt MD Unavailable [phone] Zhang Kessler MD Unavailable [phone] Frank Griffith MD Unavailable [phone] Ten Eckert MD Unavailable Patti Thomas DO Primary Care Provider Shameka Sinclair LPN Unavailable [phone] Luana Hutchinson RN Unavailable [phone] Encounter Details Date Type Department Care Team (Late st Contact Info) Description 03/24/2025 Orders Only [facility] [address] [facility] [address] [place] [address] Carlitos Soria MD [address] [place] [address] Social History Tobacco Use Types [...] Description 09/01/2025 1:00 PM EDT Office Visit [facility] [address] [place] [address] Patti Thomas DO [address] [place] [address] documented as of this encounter Procedures Procedure [...] EDT) Blood Venous blood specimen / Unknown Result Akhil Wild MD LAB BLOOD ORDERABLES Final Resul t * CBC auto differential (03/18/2025 12:49 PM EDT) Blood Venous blood specimen / Unknown us Norbert Wild MD LAB BLOOD ORDERABLES Final Resul t * UA WITH CULT RFLX (03/18/2025 12:49 PM EDT) Result Akhil Wild MD LAB BLOOD ORDERABLES Final Resul t * ECG 12 lead (03/18/2025 12:47 PM EDT) Result Akhil Soria MD ECG ORDERABLES Final Result documented in this encounter Visit Diagnoses Not on filedocumented in this encounter Care Teams Clinical Staff Anesthesiologist Relationship Specialty Start Date End Date Patti Thomas DO [address] [place] [address] PCP - ACO Reach 04/02/23 Patti Thomas, DO [address] [place] [address] PCP - General Internal Medicine 07/23/23 Tri Watt MD [address] [address] Referring Physician Dermatology 07/22/23 Zhang Kessler MD [address] [place] [address] Referring Physician Ophthalmology 07/22/23 Frank Griffith MD [address] [facility] [place] [address] Referring Physician Urology 07/22/23 Ten Eckert MD [address] [facility] [address] [place] [address] Referring Physician Cardiac Electrophysiology 07/22/23 Shameka Sinclair LPN [address] [place] [address] Licensed Practical Nurse Family Medicine 04/26/25 04/26/25 Luana Hutchinson, DENISHA [address] [place] [address] Registered Nurse Family Medicine 04/26/25 documented as of this encounter
--- OUTSIDE RECORDS SUMMARY | 2025-07-17 07:49 | XMS_ITS | Encounter Summary ---
Author Organization [facility] Address [address] [facility] [place] [address] Care Team Providers Care Credit Advisor Name Role Phone Patti Thomas DO Unavailable [phone] Tri Watt MD Unavailable [phone] Zhang Kessler MD Unavailable [phone] Frank Griffith MD Unavailable Ten Eckert MD Unavailable Patti Thomas DO Primary Care Provider Shameka Sinclair LPN Unavailable [phone] Luana Hutchinson RN Unavailable Encounter Details Date Type Department Care Team (Late st Contact Info) Description 02/23/2025 Orders Only [facility] [address] [facility] [address] [place] [address] Frank Griffith MD [address] [place] [address] Social History Tobacco Use Types [...] Visit [facility] [place] [facility] [address] [facility] [address] [place] [address] Patti Thomas DO [address] [facility] [address] [place] [address] documented as of this encounter Procedures Procedure [...] on filedocumented in this encounter Care Teams Credit Advisor Relationship Specialty Start Date End Date Patti Thomas DO [address] [facility] [address] [place] [address] PCP - ACO Reach 04/02/23 Patti Thomas DO [address] [facility] [address] [place] [address] PCP - General Internal Medicine 07/23/23 Tri Watt MD [address] [address] Referring Physician Dermatology 07/22/23 Zhang Kessler MD [address] [place] [address] Referring Physician Ophthalmology 07/22/23 Frank Griffith MD [address] [place] [address] Referring Physician Urology 07/22/23 Ten Eckert MD [address] [place] [address] Referring Physician Cardiac Electrophysiology 07/22/23 Shameka Sinclair, MIESHA [address] [place] [address] Licensed Practical Nurse Family Medicine 04/26/25 04/26/25 Luana Hutchinson, RN [address] [place] [address] Registered Nurse Family Medicine 04/26/25 documented as of this encounter
--- OUTSIDE RECORDS SUMMARY | 2025-07-17 07:49 | XMS_ITS | Clinical Summary ---
Author Organization [facility] Address [address] [place] [address] Care Team Providers Care Resort Housekeeper Name Role Phone Patti Thomas MD Primary Care Provider [phone] Allergies Active Allergy Reactions Criticality Noted Date [...] Active Additional Information Patient not taking.Reported on 07/03/2025 cloNIDine (Catapres) 0.2 mg tabletIndications :Benign hypertensive heart disease without congestive heart failure Take 1 tablet (0.2 mg) by mouth two times daily. 180 tablet 3 11/22/19 25 026 Active spironolactone (Aldactone) 25 mg tabletIndications :Primary hypertension Take 0.5 tablets (12.5 mg) by mouth in the morning. 15 tablet 5 05/15/20 25 026 Active Additional Information Patient not taking.Reported on 07/03/2025 metoprolol succinate XL (Toprol-XL) 25 mg 24 hr tabletIndications :Atrial fibrillation status post cardioversion (CMS/HCC) Take 1 tablet (25 mg) by mouth in the morning. Do not crush or chew. 30 tablet 5 05/15/20 25 026 Active amiodarone (Pacerone) 200 mg tabletIndications :PAF (paroxysmal atrial fibrillation) (CMS/HCC) Take 1 tablet (200 mg) by mouth in the morning. 1 tablet daily 90 tablet 3 06/19/20 25 026 Active torsemide (Demadex) 10 mg tabletIndications :Primary hypertension Take 1 tablet (10 mg) by mouth in the morning. 90 tablet 3 07/03/20 25 026 Active amiodarone (Pacerone) 200 mg tabletIndications :PAF (paroxysmal atrial fibrillation) (CMS/HCC) Take 2 tablets (400 mg) by mouth two times daily for 14 days, THEN 1 tablet (200 mg) once daily as directed. 146 tablet 03/21/20 25 025 Discontin ued(Reord er) Active Problems Problem [...] level monitoring 10/26/2023 10/26/2023 Hypokalemia 10/26/2023 10/26/2023 prison (current) use of anticoagulants 202210/26/2023 Tinea unguium [...] flecainide on follow up with Dr. Eckert -[id number]: 3 Third degree heart block 08/03/2020 Diverticulitis [...] Encounters Date Type Department Care Team Description 07/03/2025 9:40 AM EDT Office Visit [address] [address] Kenn Koenig CNP PAF (paroxysmal atrial fibrillation) (CMS/HCC) (Primary Dx); Primary hypertension; Mixed hyperlipidemia 06/19/2025 Refill [place] [address] [place] [address] Ricarda Albrecht MA PAF (paroxysmal atrial fibrillation) (CMS/HCC) 05/24/2025 Orders Only [facility] [address] [place] [address] Emani Gomez MA Essential hypertension (Primary Dx) 05/23/2025 Telephone [facility] [address] [place] [address] Emani Gomez MA 05/15/2025 9:40 AM EDT Follow-Up [facility] [address] [place] [address] Kenn Koenig CNP PAF (paroxysmal atrial fibrillation) (CMS/HCC); Atrial fibrillation status post cardioversion (CMS/HCC); Primary hypertension; Mixed hyperlipidemia from Last 3 Months Family History Medical [...] Heterosexual or Straight 06/09 3:15 PM EDT Last Filed Vital Signs Vital Sign Reading Time Taken Comments Blood Pressure 152/65 07/03/2025 9:27 AM EDT Pulse 48 07/03/2025 9:27 AM EDT Temperature - - Respiratory Rate 14 04/10/2025 10:02 AM EDT Oxygen Saturation 98% 07/03/2025 9:27 AM EDT Inhaled Oxygen Concentration - - Weight 104 kg (229 lb) 07/03/2025 9:27 AM EDT Height 193 cm (6' 4 ) 07/03/2025 9:27 AM EDT Body Mass Index 27.87 07/03/2025 9:27 AM EDT Plan of Treatment Upcoming Encounters Date Type Department Care Team (Late st Contact Info) Description 09/14/2025 10:00 AM EST Office Visit [facility] [address] [place] [address] Kenn Koenig, HOT BILLET SHEAR OPERATOR [address] [place] [address] Health Maintenance Due Date Last Done Comments CT Colonography 1950 FIT-DNA 1950 FOBT 1950 Medicare Annual Wellness (AWV) 1950 Sigmoidoscopy 1950 Diabetes: Retinopathy Screening 1960 Depression Screening 1962 Pneumococcal Vaccine: 50+ Years (1 of 2 - PCV) 1969 Zoster Vaccines (1 of 2) 2000 Fall Risk Screening 2015 FIT 08/04/2023 08/04/2022 Diabetes: Hemoglobin A1C 09/15/2024 06/15/2024, 0506/2023 COVID-19 Vaccine ( season) 2025 01/29/2021, 01/07/2021 Influenza Vaccine (#1) 2025 , 07/23/2023, 08/09/2022, [...] (CMS/HCC) Atrial fibrillation status post cardioversion (CMS/HCC) from Last 3 Months Results * ECG 12 lead unit performed (05/15/2025 9:31 AM EDT) Kenn Koenig HOT BILLET SHEAR OPERATOR ECG ORDERABLES Final Result from Last 3 Months Insurance MEDICARE GENERIC OTHER Care Teams Resort Housekeeper Relationship Specialty Start Date End Date Patti Thomas MD [address] PCP - General 11/05/22
--- OUTSIDE RECORDS SUMMARY | 2025-07-17 07:49 | XMS_ITS | Encounter Summary ---
Author Organization [facility] Address [address] [facility] [place] [address] Care Team Providers Care Sportspersons Name Role Phone Patti Thomas DO Unavailable [phone] Tri Watt MD Unavailable [phone] Zhang Kessler MD Unavailable [phone] Frank Griffith MD Unavailable [phone] Ten Eckert MD Unavailable Patti Thomas DO Primary Care Provider Shameka Sinclair LPN Unavailable [phone] Luana Hutchinson RN Unavailable [phone] Encounter Details Date Type Department Care Team (Late st Contact Info) Description 03/22/2025 Orders Only [facility] [address] [place] [address] Unallocated, Noms Provider, [address] [place] [address] Social History Tobacco Use Types Packs/Day Years [...] [address] [place] [address] Patti Thomas DO [address] [place] [address] documented as of this encounter Procedures Procedure Name Priority Date/Time Associated Diagnosis Comments ECG 12-LEAD Routine 03/21/2025 9:20 AM EDT documented in this encounter Results * ECG 12 lead (03/21/2025 9:20 AM EDT) us Noms Provider Unallocated ECG ORDERABLES Fin al Result documented in this encounter Visit Diagnoses Not on filedocumented in this encounter Care Teams Sportspersons Relationship Specialty Start Date End Date Patti Thomas DO [address] [place] [address] PCP - ACO Reach 04/02/23 Patti Thomas DO [address] [place] [address] PCP - General Internal Medicine 07/23/23 Tri Watt MD [address] [address] Referring Physician Dermatology 07/22/23 Zhang Kessler MD [address] [place] [address] Referring Physician Ophthalmology 07/22/23 Frank Griffith MD [address] [place] [address] Referring Physician Urology 07/22/23 Ten Eckert MD [address] [place] [address] Referring Physician Cardiac Electrophysiology 07/22/23 Shameka Sinclair LPN [address] [place] [address] Licensed Practical Nurse Family Medicine 04/26/25 04/26/25 Luana Hutchinson, RN [address] [place] [address] Registered Nurse Family Medicine 04/26/25 documented as of this encounter
--- OUTSIDE RECORDS SUMMARY | 2025-07-17 07:49 | XMS_ITS | Encounter Summary ---
Author Organization [facility] Address [address] [place] [address] Care Team Providers Care Client Support Associate Name Role Phone Patti Thomas DO Unavailable [phone] Patti Thomas DO Primary Care Provider Tri Watt MD Unavailable [phone] Zhang Kessler MD Unavailable Frank Griffith MD Unavailable [phone] Ten Eckert MD Unavailable Patti Thomas DO Primary Care Provider Shameka Sinclair LPN Unavailable [phone] Luana Hutchinson RN Unavailable [phone] Encounter Details Date Type Department Care Team (Late st Contact Info) Description 07/15/2023 Orders Only [facility] [address] [place] [id number] A, Unknown Practice [address] [place] [id number] Social History Tobacco Use Types Packs/Day [...] 09/01/2025 1:00 PM EDT Office Visit [facility] [place] [facility] [address] [place] [phone] Patti Thomas DO [address] [place] [address] documented as of this encounter Procedures Procedure [...] on filedocumented in this encounter Care Teams Client Support Associate Relationship Specialty Start Date End Date Patti Thomas DO [address] [place] [address] PCP - ACO Reach 04/02/23 Patti Thomas DO [address] [place] [address] PCP - General Internal Medicine 03/17/23 07/21/23 Patti Thomas DO [address] [place] [address] PCP - General Internal Medicine 07/23/23 Tri Watt MD [address] [address] Referring Physician Dermatology 07/22/23 Zhang Kessler MD [address] [place] [address] Referring Physician Ophthalmology 07/22/23 Frank Griffith MD [address] [place] [address] Referring Physician Urology 07/22/23 Ten Eckert MD [address] [place] [address] Referring Physician Cardiac Electrophysiology 07/22/23 Shameka Sinclair, MASTIC MAN [address] [facility] [address] [place] [address] Licensed Practical Nurse Family Medicine 04/26/25 04/26/25 Luana Hutchinson, RN [address] [facility] [address] [place] [address] Registered Nurse Family Medicine 04/26/25 documented as of this encounter
--- OUTSIDE RECORDS SUMMARY | 2025-07-17 07:49 | XMS_ITS ---
Author Organization [facility] Address [address] [place] [address] Care Team Providers Care Hydraulic Hammer Operator Name Role Phone Patti Thomas DO Unavailable [phone] Tri Watt MD Unavailable [phone] Zhang Kessler MD Unavailable [phone] Frank Griffith MD Unavailable [phone] Ten Ecekrt MD Unavailable Patti Thomas DO Primary Care Provider Luana Hutchinson RN Unavailable [phone] Chronic Care Management (CCM) Status:Enrolled (Active) Start date:04/26/2025 Enrollment date:05/04/2025 Enrollment reason:Identified as high-risk Overview <May 04, 2025, 15:36 - Luana Hutchinson RN> Patient gives verbal consent to be enrolled in CCM program and understands there could be a bill for this service. Case Team Name Relationship Phone Luana Hutchinson RN(Responsible Staff) Registered [facility] [phone] Continued Care and Services Coordination
--- OUTSIDE RECORDS SUMMARY | 2025-07-17 07:49 | XMS_ITS | Encounter Summary ---
Author Organization [facility] Address [address] [facility] [place] [address] Care Team Providers Care Soup Person Name Role Phone Patti Thomas DO Unavailable [phone] Tri Watt MD Unavailable [phone] Zhang Kessler MD Unavailable Frank Griffith MD Unavailable [phone] Ten Eckert MD Unavailable Patti Thomas DO Primary Care Provider Shameka Sinclair LPN Unavailable [phone] Luana Hutchinson RN Unavailable [phone] Encounter Details Date Type Department Care Team (Late st Contact Info) Description 09/05/2024 Orders Only [facility] [address] [address] [place] [phone] A, Unknown Practice [address] [place], [place] [address] Social History Tobacco Use Types Packs/Day Years [...] [address] [place] [address] Patti Thomas DO [address] [place] [address] documented as of this encounter Procedures Procedure [...] on filedocumented in this encounter Care Teams Soup Person Relationship Specialty Start Date End Date Patti Thomas DO [address] [place] [address] PCP - ACO Reach 04/02/23 Patti Thomas DO [address] [place] [address] PCP - General Internal Medicine 07/23/23 Tri Watt MD [address] [address] Referring Physician Dermatology 07/22/23 [place] [address] [place] [address] Referring Physician Ophthalmology 07/22/23 Frank Griffith MD [address] [place] [address] Referring Physician Urology 07/22/23 Ten Eckert MD [address] [place] [address] Referring Physician Cardiac Electrophysiology 07/22/23 Shameka Sinclair LPN [address] [place] [address] Licensed Practical Nurse Family Medicine 04/26/25 04/26/25 Luana Hutchinson, RN [address] [place] [address] Registered Nurse Family Medicine 04/26/25 documented as of this encounter
--- OUTSIDE RECORDS SUMMARY | 2025-07-17 08:04 | XMS_ITS | CCD ---
Author Organization [facility] Care Team Providers Care Ssn/Ssbn Assistant Navigator Name Role Phone PATTI THOMAS Referring Unavailable TEN ECKERT Admitting Unavailable TEN ECKERT Attending Unavailable DUNNGYPSY, PATTI Primary Care Unavailable TEN ECKERT Admitting Unavailable TEN ECKERT Attending Unavailable DUNN-EMERJanelle, PATTI Primary Care Unavailable DUNNGYPSY PATTI Referring Unavailable TEN ECKERT Admitting Unavailable TEN ECKERT Attending Unavailable DUNN-BELTRAN, PATTI Primary Care Unavailable DUNNARIADNA GIBSONRA Referring Unavailable PATTI THOMAS Primary Care Physician [phone] Cirilo Rehman Unavailable DUNN LENOREY, PATTI Primary Care Unavailable SIRI, DR DANNY [...] FREED Admitting Unavailable DUNN EMERJanelle, DR PATTI Abdul Consulting Van OCHOAAVER BELTRAN, DR PATTI Abdul Admitting Unavai lable DUNN EMERJanelle, PATTI Primary Care Unavailable DUNN BELTRAN, DR PATTI Abdul Attending Kimi lable SINCERE GONG, DR PATTI Abdul Consulting Van yoole Dunn-Patti Gong DO Unavailable Alysa [place], Tri Gustafson Unavailable [phone] [place], Zhang Tellez Unavailable [phone] Danny Horner MD Unavailable Nichole [place], Ten Unavailable Patti Thomas DO Primary Care Provider PATTI THOMAS Attending Unavailab le DUNN-EMERY, PATTI Abdul Admitting Unavailab le DUNN-EMERY, PATTI Abdul Attending Unavailab le DUNN-EMERY, PATTI D Admitting Unavailab le COOK, Danny P Attending Unavailable COOK, Danny P Admitting Unavailable COOK, Danny P Attending Unavailable COOK, Danny P Attending Unavailable COOK, Danny P Admitting Unavailable COOK, Danny P Attending Unavailable DUNN-EMERY, PATTI Abdul Attending Unavailab le DUNN-EMERY, PATTI Abdul Attending Unavailab le DUNN-EMERY, PATTI Abdul Referring Unavailab le DUNN-EMERY, PATTI Abdul Attending Unavailab le DUNN-EMERY, PATTI Abdul Attending Unavailab le Sinclair LIVE IN CAREGIVER, Shameka Unavailable [phone] [facility] RN, Luana Unavailable KENN ARREDONDO Attending Unavailable NICHOLETEN BYRNES Attending Unavailable NICHOLE, TEN Attending Unavailable KENN ARREDONDO Attending Unavailable TEN ECKERT Admitting Unavailable NICHOLE, TEN Attending Unavailable NICHOLE, TEN Referring Unavailable NICHOLE, TEN Referring Unavailable Allergies Allergy Classification Reported Allergen(s) Allergy Type Date of Onset Reaction(s) Facility (12 sources) Adhesive Tape; Translations: [Tape] Propensity to adverse reactions (disorder) 020 rash, Unknown [facility] Repository (10 sources) Penicillins; Translations: [penicillins] Drug allergy (disorder) 019 Cutaneous eruption (morphologic abnormality), Moderate (severity modifier) (qualifier value) [facility] Repository (12 sources) hydroCHLOROthiazide; Translations: [hydrochlorothiazide] Drug Allergy 021 unknown, ABNORMAL LABS [place] Other (11 sources) Penicillin G Drug Allergy 023 Unknown [place] Other (1 source) Adhesive agent Drug allergy (disorder) [facility] Repository (1 source) Penicillin Drug Allergy [facility] Repository (10 sources) hydroCHLOROthiazide Drug Allergy 023 [facility] Healthcare Work Phone: (2 sources) Penicillin; Translations: [penicillins] Drug Allergy Cutaneous eruption (morphologic abnormality), Moderate (severity modifier) (qualifier value) [facility] (1 source) Spironolactone; Translations: [SPIRONOLACTONE] Drug Allergy 025 [facility] Repository (1 source) ADHESIVE TAPE-SILICONES; Translations: [ADHESIVE TAPE-SILICONES] Propensity to adverse reactions to drug (disorder) 022 [facility] Repository Medications Current Medications Medication Drug Class(es) Dates Sig (Normalized) Sig (Original) acetaminophen 325 mg / HYDROcodone bitartrate 7.5 mg oral tablet (2 sources) Opioid Agonist Start: 09-29-2023 [place] 325 mg-7.5 mg oral tablet See Instructions, [...] Weight Dosing Start Date: 09/29/23 Status: Ordered amiodarone hydrochloride 200 mg oral tablet (5 sources) Antiarrhythmic take 1 tablet by mouth in the morning amiodarone (Pacerone) 200 MG tablet Take 200 mg by mouth in the morning and 200 mg before bedtime. Active amLODIPine 10 mg oral tablet (19 sources) Dihydropyridine Calcium Channel Teddy Start: 05-20-2019 take 1 tablet by mouth once daily amLODIPine (Norvasc) 10 MG tablet Indications: Benign essential hypertension Take 1 tablet (10 mg) by mouth Daily 90 tablet 3 01/23/2025 Active apixaban 5 mg oral tablet (19 sources) Factor Xa Inhibitor Start: 02-05-2022 take [...] Refills(s) 0 Start Date: 01/18/20 Status: Ordered bisacodyl 5 mg delayed release oral tablet (2 sources) Stimulant Laxative take 1 tablet by mouth every twenty-four hours as needed for constipation bisacodyl (Dulcolax) 5 MG EC tablet Take 5 mg by mouth Daily as needed for constipation Do not crush, chew, or split. Active ciprofloxacin 500 mg oral tablet (3 sources) Quinolone Antimicrobial Start: 09-29-2023 ciprofloxacin 500 mg Tab See Instructions, start 3 days prior to procedure - take 1 tab twice daily for 7 days, # 14 tab(s), Refills(s) 0, Pharmacy: [facility] 1155, 195, cm, 09/08/23 13:52:00 EDT, Height/Length Dosing, 110, kg, 09/08/23 13:52:00 EDT, Weight Dosing Start Date: 09/29/23 Status: Ordered Start: 06-29-2020 take 1 tablet by wojciech th every twelve hours Cipro 500 mg Tab 500 mg = 1 tab(s), Oral, q12hr Start Date: 06/29/20 Status: Ordered cloNIDine hydrochloride 0.2 mg oral tablet (10 sources) Central alpha-2 Adrenergic Agonist take 1 [...] procedure, # 1 tab(s), Refills(s) 0, Pharmacy: [facility] 1155, 195, cm, 09/08/23 13:52:00 EDT, Height/Length Dosing, 110, kg, 09/08/23 13:52:00 EDT, Weight Dosing Start Date: 09/29/23 Status: Ordered empagliflozin 25 mg oral tablet (10 sources) Sodium-Glucose Cotransporter 2 Inhibitor take 0.5 tablet by mouth once daily empagliflozin (Jardiance) 25 MG Take 0.5 tablets by mouth Daily [facility] Active flecainide acetate 100 mg oral tablet (2 sources) Antiarrhythmic Start: 02-05-2022 flecainide 100 mg Tab 100 mg = 1 tab(s), Oral Start Date: 02/05/22 Status: Ordered take 1 tablet by wojciech every twelve hours Flecainide Acetate 100 MG 1 TABLET Orall y twice a day Active fosinopril sodium 40 mg oral tablet (19 sources) Angiotensin Converting Enzyme Inhibitor Start: 07-14-2019 take 1 tablet by mouth once daily fosinopril (Monopril) 40 MG tablet Indications: Primary hypertension TAKE ONE TABLET BY MOUTH DAILY FOR 90 DAYS 90 tablet 3 06/07/2024 Active metFORMIN hydrochloride 500 mg oral tablet (20 sources) Biguanide Start: 08-09-2024 take 1 tablet by mouth once daily metFORMIN (Glucophage) 500 MG tablet Indications: Diabetic glomerulopathy (HCC) Take 1 tablet (500 mg) by mouth Daily Dose decreased per RODRIGO Valdivia 08/09/2024 Active Start: 05-20-2019 End: 08-09-2024 take 500 mg by mouth twice daily metformin 500 mg, Oral, BID, Refills(s) 0, Blood glucose Start Date: 05/20/19 Status: Ordered Repeat number: 1 24 hr metoprolol succinate 50 mg extended release oral tablet (19 sources) beta-Adrenergic Teddy Start: 01-18-2020 take 1 tablet by mouth once daily metoprolol succinate XL (Toprol-XL) 50 MG 24 hr tablet Indications: Hypertension, unspecified type TAKE ONE TABLET BY MOUTH DAILY FOR 90 DAYS 90 tablet 3 05/31/2024 Active metroNIDAZOLE 500 mg oral tablet (8 sources) Nitroimidazole Antimicrobial Start: 06-29-2020 take 1 tablet by mouth three times daily MetroNIDAZOLE 500 mg Tab 500 mg = 1 tab(s), Oral, TID Start Date: 06/29/20 Status: Ordered Repeat number: 1 omeprazole 20 mg delayed release oral capsule (20 sources) Proton Pump Inhibitor Start: 07-14-2023 End: [...] tablet Indications: Stage 3b chronic kidney disease (CMS-HCC) Take [...] number: 1 simvastatin 40 mg oral tablet (19 sources) HMG-CoA Reductase Inhibitor Start: 05-20-2019 take 1 tablet by mouth once daily simvastatin (Zocor) 40 MG tablet Indications: Mixed hyperlipidemia TAKE ONE TABLET BY MOUTH DAILY FOR 90 DAYS 90 tablet 3 06/07/2024 Active traMADol hydrochloride 50 mg oral tablet (6 sources) Opioid Agonist Start: 09-30-2023 take 1 tablet by mouth every six hours Ultram 50 mg Tab 50 mg = 1 tab(s), Oral, q6hr, # 20 tab(s), Refills(s) 0, Pharmacy: [facility], 195, cm, 09/08/23 13:52:00 EDT, Height/Length Dosing, 110, kg, 09/08/23 13:52:00 EDT, Weight Dosing Start Date: 09/30/23 Status: Ordered Quantity: 20.0 Unit: tab(s) Repeat number: 1 triamcinolone acetonide 1 mg/ml topical cream (18 sources) Corticosteroid Start: 03-15-2025 triamcinolone (Kenalog) 0.1 % cream Indications: Dermatitis Apply topically in the morning and before bedtime. To affected areas. 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; Translations: [Cortical age-related cataract, bilateral] Onset: 3 12-01-2023 Chronic Chronic kidney disease (19 sources) Chronic kidney disease stage 2; Translations: [...] Resolved: 1 Chronic Diabetes mellitus without complication (20 sources) Diabetes mellitus; Translations: [Type 2 diabetes mellitus with diabetic nephropathy] Onset: 3 05-20-2019 Chronic Disorders of lipid metabolism (20 sources) Hypercholesterolemia; Translations: [Mixed hyperlipidemia] Onset: 2 06-30-2019 Chronic Diverticulosis and diverticulitis (20 sources) Diverticular disease; Translations: [Diverticulosis of intestine, part unspecified, without perforation or abscess without bleeding] Onset: 3 Resolved: 3 07-20-2023 Chronic Esophageal disorders (12 sources) Gastro-esophageal reflux disease with esophagitis; Translations: [Gastroesophageal reflux disease with esophagitis without hemorrhage] Onset: 3 12-01-2023 Chronic Essential hypertension (20 sources) Hypertensive disorder; Translations: [Benign essential hypertension] Onset: 3 05-20-2019 Chronic Genitourinary symptoms and ill-defined conditions (20 sources) Blood in urine; Translations: [Increased frequency of urination] Onset: 1 Resolved: 1 06-30-2019 Episodic Hyperplasia of prostate (20 sources) Benign prostatic hypertrophy with outflow obstruction; [...] sources) Long-term current use of anticoagulant; Translations: [ocean transportation intermediary (current) use of anticoagulants] Onset: 3 Episodic Other diseases of bladder and urethra (8 sources) Hypertrophy of bladder 06-29-2020 Chronic Other diseases of kidney and ureters (1 source) Secondary hyperparathyroidism; Translations: [Secondary hyperparathyroidism of renal origin] Chronic Other diseases of kidney and ureters (2 sources) Urinary tract obstruction; Translations: [Other obstructive and reflux uropathy] Onset: 2 Episodic Other ear and sense organ disorders (12 sources) Sensorineural hearing loss, bilateral; Translations: [Sensorineural [...] sources) Body mass index 25-29 - overweight 2 Episodic Other screening for suspected conditions (not mental disorders or infectious disease) (16 sources) Raised prostate specific antigen; Translations: [Elevated prostate specific antigen [PSA]] Onset: 2 Episodic Pneumonia (except that caused by tuberculosis or sexually transmitted disease) (2 sources) Left lower zone pneumonia; Translations: [Pneumonia, unspecified organism] 03-23-2025 Episodic Residual codes; unclassified (16 sources) Obstructive sleep apnea syndrome; Translations: [Obstructive sleep apnea (adult) (pediatric)] 08-09-2024 Chronic Residual codes; unclassified (16 sources) Dependence on continuous positive airway pressure ventilation; Translations: [Dependence on other enabling machines and devices] Onset: 08-09-2024 Chronic Unclassified (8 sources) Drug therapy finding 06-29-2020 Past or Other Problems Problem Classification Problem Date Documented Da te Episodic/Chronic Acute and unspecified renal failure (1 source) Acute kidney failure, unspecified Onset: 09-11-2021 Resolved: 09-11-2021 Episodic Allergic reactions (10 sources) Inflammatory dermatosis; Translations: [Dermatitis, unspecified] Onset: 04-05-2024 04-05-2024 Episodic Deficiency and other anemia (1 source) Anemia, unspecified Onset: 09-11-2021 Resolved: 09-11-2021 Episodic Other aftercare (4 sources) ocean transportation intermediary (current) use of anticoagulants; Translations: [LEG MAN CURRNT USE ANTICOAGULANTS] Onset: 05-27-2022 Episodic Other gastrointestinal disorders (10 sources) Stool DNA-based colorectal cancer screening positive; Translations: [Other fecal abnormalities] Onset: 07-20-2023 Resolved: 09-06-2023 09-06-2023 Episodic Other non-traumatic joint disorders (10 sources) Bilateral stiffness of knee joints; Translations: [Stiffness of right knee, not elsewhere classified] Onset: 08-09-2024 08-09-2024 Episodic Results Test Name Value Interpretation Reference Range Facility Office Visiton 07-03-2025 Follow-up visit [id number] Aline Tomlin 1950 M Date Provider Department Center 07/03/2025 [id number] ARREDONDO [facility] Family History Problem Relation Age of Onset Cancer Mother Other Father Family Status - Relation Status Age at Mother Father Sister Alive Brother Alive Level of Service:37929 [place] OFFICE/OUTPATIENT ESTABLISHED MOD MDM 30 MIN [facility] 36on 05-23-2025 36 Phone call from , states patient was prescribed Spirolactone, on May 15 which , states he has a rash appeared on May 20 his arms and forehead and he had a puffy right eye which has resolved, now he has a puffy left eye. [...] reassess and determine next steps. Thanks, Kenn Arredondo, [facility] Cardiovascular Medicine Advised of Kenn Arredondo's recommendation. verbalized understanding, and agreed with plan of care. [facility] Telephoneon 05-23-2025 Telephone [id number] Aline Tomlin 1950 M Date Provider Department Center 05/23/2025 [id number] LOU [facility] Family History Problem Relation Age of Onset Cancer Mother Other Father Family Status - Relation Status Age at Mother Father Sister Alive Brother Alive [facility] Follow-Upon 05-15-2025 Follow-Up [id number] Aline Tomlin 1950 M Date Provider Department Center 05/15/2025 [id number], ADAM [facility] Family History Problem Relation Age of Onset Cancer Mother Other Father Family Status - Relation Status Age at Mother Father Sister Alive Brother Alive Level of Service:21962 [place] OFFICE/OUTPATIENT ESTABLISHED MOD MDM 30 MIN Normal [facility] Laboratory - Hematology and Cell countson 04-26-2025 HbA1c (Bld) [Mass fraction] 7.2 % [facility] No Panel Informationon 04-26 [facility] XR CHEST 2Von 04-24-2025 [place] [address] XRay Report Signed Patient: ALINE TOMLIN MR#: [id number] : 1950 Acct:[id number] Age/Sex: 74 / M ADM Date: 04/24/25 Loc: RAD Attending Dr: PATTI GONG Ordering Physician: PATTI DASILVA Date of Service: 04/24/25 Procedure(s): XR chest 2V Accession Number(s): [id number] cc: PATTI DASILVA [place] [id number] Patient Name: ALINE TOMLIN MRN: [id number] date: 1950 Sex: M Assigned Patient Location: [facility] Current Patient Location: RAD Accession/Order Number: [id number] Exam Date: 04/24/2025 09:22 Report Date: 04/24/2025 [...] Quispe M.D. 04/24/2025 9:24 AM Dictation Location: Dialogic Electronically authenticated by: [id number] Y Date: 04/24/2025 09:24 Dictated By: Shilpi Quispe M.D. Signed By: 04/24/25925 DD/ 3 TD/TT: Assistant Manager Bilingual: [facility] Radiology, Radiologist, MD - 04/24/2025 [place] [address] XRay Report Signed Patient: ALINE TOMLIN MR#: [id number] : 1950 Acct:[id number] Age/Sex: 74 / M ADM Date: 04/24/25 Loc: [facility] Attending Dr: PATTI GONG Ordering Physician: PATTI DASILVA Date of Service: 04/24/25 Procedure(s): XR chest 2V Accession Number(s): [id number] cc: PATTI DASILVA [place] [id number] Patient Name: ALINE TOMLIN MRN: [facility]:[id number] date: 1950 Sex: M Assigned Patient Location: [facility] Current Patient Location: [facility] Accession/Order Number: [id number] Exam Date: 04/24/2025 09:22 Report Date: 04/24/2025 [...] Quispe M.D. 04/24/2025 9:24 AM Dictation Location: Dialogic Electronically authenticated by: [id number] Y Date: 04/24/2025 09:24 Dictated By: Shilpi Quispe M.D. Signed By: 04/24/25925 DD/ 3 TD/TT: Assistant Manager Bilingual: [facility] Radiology Study observation (narrative) [facility] [employer] XR CHEST 2VOrdered By: ITS [facility] on [facility]-24-20[facility] Orders Onlyon 04-12-2025 Orders Only [id number] Aline Tomlin 1950 M Date Provider Department Center 04/12/2025 [id number], HISTORICAL BH CARD [facility] Family History Problem Relation Age of Onset Cancer Mother Other Father Family Status - Relation Status Age at Mother Father Sister Alive Brother Alive [facility] HPon 04-10-2025 [facility] Cardiology Consul t Note Reason for visit: s/p PVI 03/21/25 Patient is here today for a follow up from [facility] ER. Patient states he was in the ER for pneumonia int he LLL, while in the ER patient was told he was back in A-Fib. Patient has no cardiac complaints. Patient has a follow up with PCP 03/23/2025. EKG 03/21/25 atrial fibrillation 11/22/24 Patient here for 6 mo follow up persistent afib, hypertension, and hyperlipidemia. He's still able to walk 4 miles during the weekdays without problems. Denies chest pain, SOB, palpitations, lightheadedness/synco pe, and bleeding on Eliquis. No recent labs [...] month. He denies chest pain, SOB, palpitations, lightheadedness/synco pe, and bleeding on Eliquis. LE edema continues [...] qtc on flecainide Previous HPI per Joel MANAGER STRATEGIC SOURCING 04/22/2022: 71 yo male PMH of HTN, [...] at 23:32 with underlying rhythm of atrial fibrillation.occasion al premature ventricular contractions with <0.1% burden. Conclusions: [...] visually. Leftventricular wall thickness is normal. No regiona (more content not included)... Normal [facility] NURSNOTEon 04-10-2025 NURSNOTE RN educated pt on discharge instructions. RN encouraged pt to voice any questions or concerns. Pt verbalizes no questions or concerns at this time. Pt was wheeled off unit with all belongings, including hearing aides and glasses. Normal [facility] Orders Onlyon 04-07-2025 Orders Only [id number] Ana LuisaAline Padmini 1950 Date Provider Department Center 04/07/2025 [id number], VIRLA [place] Family History Problem Relation Age of Onset Cancer Mother Other Father Family Status - Relation Status Age at Mother Father Sister Alive Brother Alive Normal [facility] Orders Onlyon 03-31-2025 Orders Only [id number] Aline Tomlin 1950 M Date Provider Department Center 03/31/2025 [id number] PEARCE [facility] [place] [facility] Family History Problem Relation Age of Onset Cancer Mother Other Father Family Status - Relation Status Age at Mother Father Sister Alive Brother Alive Normal [facility] Office Visiton 03-21-2025 Follow-up visit [id number] Aline Tomlin 1950 Date Provider Department Center 03/21/2025 Monica-TEN ECKERT THO [place] Family History Problem Relation Age of Onset Cancer Mother Other Father Family Status - Relation Status Age at Mother Father Sister Alive Brother Alive Level of Service:37737 [place] OFFICE/OUTPATIENT ESTABLISHED HIGH MDM 40 MIN Normal [facility] Orders Onlyon 03-21-2025 Orders Only [id number] Aline Tomlin 1950 Date Provider Department Center 03/21/2025 Tatum8-ANNABELLE REECE THO [place] Family History Problem Relation Age of Onset Cancer Mother Other Father Family Status - Relation Status Age at Mother Father Sister Alive Brother Alive Normal [facility] Ambulatory Visit Summaryon 0 03-08-2025 Ambulatory Visit Summary Ambulatory Visit Summary ANA LUISA ALINE [place] :1950 Visit Date:03/08/2025 Ambulatory Visit Instructions Your Diagnosis BPH with obstruction/lower urinary tract symptoms Urinary retention Elevated PSA History of kidney stones Anticoagulated Your Care Team Attending Physician - SIRI [...] Following Appointments Follow Up with SIRI [place], KEERTHI Escobedo When: Where: [facility] [address] [place] [address]- Medications What How Much When Instructions [...] family memb (more content not included)... Normal [facility] Urology Office/Clinic Noteon 03-08-2025 Urology Office/Clinic [...] with voice recognition artificial intelligence software, specifically [employer] and or [employer]. Substitutions may have occurred due to the [...] -KUB in 1 year 5. Anticoagulated (Z79.01: ocean transportation intermediary (current) use of anticoagulants) Eliquis. Elevated risk [...] Order KUB Follow-up With When Contact Information SIRI [place], Danny Simon, URL [address] [address]- Additional Instructions: 1 year w/ PSAFT & [...] stent (07/25/2019), (more content not included)... Normal [facility] Comment on above: Result Comment: Elec tronically Signed By: Danny HORNER MD\.br\Date and Time Signed: 03/08/25 09:46 EDT\.br\Electronically Co-Signed By: Stacy Medeiros.br\Date and Time Co-Signed: 03/08/25 09:39 EDT CHEMISTRYOrdered [...] methods and specificity. Values obtained with different grinder set up operator's assays cannot be used interchangeably. The methodology used to obtain this result was chemiluminescence using [employer]'s Access Hybritech PSA reagent and Access Hybritech [...] used for this result was chemiluminescence using [employer]'s Access Hy[employer]ch PSA reagent. [facility] MA/CR RATIOon 5 ALBUMIN/CREATININE:M RTO:PT:URINE:QN:DETE CTION LIMIT <= 20 MG/L 21 [facility] Comment on above: 30-300 mg/g Cr indic ates an increased risk for diabetic nephropathy. >300 mg/g Cr is consistent with clinical nephropathy. Creatinine (U) [Mass/Vol] 38.1 mg/dL [facility] ALBUMIN:MCNC:PT:URIN E:QN:DETECTION LIMIT <= 20 MG/L 0.8 mg/dL 0.0 - 1.9 mg/dL [facility] Original Ordering Provider: [facility] MA/Cr Ratioon 02-22-2025 Albumin DL <= 20 mg/L (U) [Mass/Vol] 0.8 mg/dL Normal 0.0-1.9 [facility] Comment on above: Performed By: #### 1 [id number] #### [facility] Laboratory [address] [place] [address] Albumin/Creatinine DL <= 20 mg/L (U) [Mass ratio] 21.0 mg/gm Cr Normal .0-30.0 [facility] Comment on above: Result Comment: 30-3 00 mg/g Cr indicates an increased risk for diabetic nephropathy. >300 mg/g Cr is consistent with clinical nephropathy. Performed By: #### 1 [id number] #### [facility] [address] [place] [address] U Creatinine 38.1 mg/dL Invalid Interpretation Code [facility] Comment on above: Performed By: #### 1 [id number] #### [facility] [address] [place] [address] Laboratory - Hematology and Cell countson 12-16-2024 HbA1c (Bld) [Mass fraction] 7.3 % [facility] No Panel Informationon 12-16 [facility] Cobalamin (Vitamin B12) [Mas s/Vol]on 12-14-2024 [facility] [facility] - Chemistry and C hemistry - challengeon 12-14-2024 Cobalamin (Vitamin B12) [Mass/Vol] 545 pg/mL [facility] TSH Qn 1.007 m[IU]/L [facility] Prostate specific Ag [Mass/Vol] 4.35 ng/mL [facility] Lipid 1996 panelon Cholesterol [Mass/Vol] 135 mg/dL [facility] HDL-C 35 [facility] LDL-C 91 [facility] Triglyceride [Mass/Vol] 57 mg/dL [facility] No Panel Informationon 12-14 [facility] Prostate specific Ag [Mass/V ol]on 12-14-2024 [facility] Office Visiton 11-22-2024 Follow-up visit [id number] Aline Tomlin 1950 M Date Provider Department Center 11/22/2024 TEN WARD [facility] Family History Problem Relation Age of Onset Other Father Family Status - Relation Status Age at Father Level of Service:73388 [place] OFFICE/OUTPATIENT ESTABLISHED LOW MDM 20 MIN Normal [facility] HbA1c (Bld) [Mass fraction]o n 08-05-2024 [facility] Laboratory - Hematology and Cell countson 08-05-2024 HbA1c (Bld) [Mass fraction] 6.7 % [facility] Microalbumin/Creatinine rati o panel (U)on 08-05-2024 Albumin DL <= 20 mg/L (U) [Mass/Vol] 6.9 mg/dL [facility] Albumin/Creatinine DL <= 1.0 mg/L (U) [Ratio] 52.1 [facility] Creatinine (U) [Mass/Vol] 132.4 mg/dL [facility] PSA, FREE AND TOTAL RATIOon 02-03-2023 % Free PSA 15.1 % Normal [facility] Comment on above: Result Comment: [...] men. Performed By: #### P SAFREE #### [facility] [address] [address] [address] Manuel Callejas Prostate specific Ag [Mass/Vol] 5.3 ng/mL Critically high 0.0-4.0 [facility] Comment on above: Result Comment: Robert BRIONES methodology. . According to the [place] [employer], Serum PSA should decrease and [...] disease. Performed By: #### P SAFREE #### [facility] [address] [address] [address] Manuel Callejas PSA, Free 0.80 ng/mL Normal N/A [facility] Comment on above: Result Comment: Robert BRIONES methodology. Performed By: #### P SAFREE #### [facility] [address] [address] [address] Manuel Callejas XR KUB 1 VIEWon [...] by: RONALDO OROPEZA Date: 2023-02-02 10:53 Normal [facility] MICROALBUMIN/ CREATININE RAT IOon 07-09-2022 Albumin, Urine 12.2 ug/mL Normal Not Estab. [facility] Comment on above: Performed By: #### M ALBCRL #### [facility] [address] [place] [address] Dr. Manuel Callejas Albumin/ Creatinine Ratio 23 mg/g creat Normal 0-29 [facility] Comment on above: Result Comment: Norm al: 0 - 29 Moderately increased: 30 - 300 Severely increased: >300 Performed By: #### M ALBCRL #### [facility] [address] [place] [address] Dr. Manuel Callejas Creatinine, Urine 52.2 mg/dL Normal Not Estab. [facility] Comment on above: Performed By: #### M ALBCRL #### [facility] [address] [place] [address] Dr. Manuel Callejas CBC AUTO DIFFon 07-08-2022 BASO # 0.1 103/ul Normal 0.0-0.1 [facility] Comment on above: Performed By: #### C BC #### [facility] [address] [place] [address] Dr. Manuel Callejas Basophils/100 WBC (Bld) 0.9 % Normal 0.2-2.0 [facility] Comment on above: Performed By: #### C BC #### [facility] [address] [place] [address] Dr. Manuel Callejas EO # 0.1 103/ul Normal 0.0-0.7 [facility] Comment on above: Performed By: #### C BC #### [facility] [address] [place] [address] Dr. Manuel Callejas Eosinophils/100 WBC (Bld) 2.1 % Normal 0.9-7.0 [facility] Comment on above: Performed By: #### C BC #### [facility] [address] [place] [address] Dr. Manuel Callejas Erythrocyte distribution width (RBC) [Ratio] 12.1 % Normal 11.0-15.0 [facility] Comment on above: Performed By: #### C BC #### [facility] [address] [place] [address] Dr. Manuel Callejas Hematocrit (Bld) [Volume fraction] 38.1 % Critically low 42.0-54.0 [facility] Comment on above: Performed By: #### C BC #### [facility] [address] [place] [address] Dr. Manuel Callejas Hemoglobin (Bld) [Mass/Vol] 13.1 g/dL Critically low 14.0-18.0 [facility] Comment on above: Performed By: #### C BC #### [facility] [address] [place] [address] Dr. Manuel Callejas IG # 0.01 10e3/ul Normal 0.00-0.03 [facility] Comment on above: Performed By: #### C BC #### [facility] [address] [place] [address] Dr. Manuel Callejas IG % 0.2 % Normal 0.0-0.5 [facility] Comment on above: Performed By: #### C BC #### [facility] [address] [place] [address] Dr. Manuel Callejas LYMPH # 1.9 103/ul Normal 1.2-3.8 [facility] Comment on above: Performed By: #### C BC #### [facility] [address] [place] [address] Dr. Manuel Callejas Lymphocytes/100 WBC (Bld) 32.3 % Normal 20.5-60.0 [facility] Comment on above: Performed By: #### C BC #### [facility] [address] [place] [address] Dr. Manuel Callejas MANUAL DIFF REQ NO Normal [facility] Comment on above: Performed By: #### C BC #### [facility] [address] [place] [address] Dr. Manuel Callejas MCH (RBC) [Entitic mass] 31.5 pg Normal 25.9-34.0 [facility] Comment on above: Performed By: #### C BC #### [facility] [id number] Manuel Callejas MCHC (RBC) [Mass/Vol] 34.4 g/dL Normal 29.9-35.2 [facility] Comment on above: Performed By: #### C BC #### [facility] [id number] Manuel Callejas MCV (RBC) [Entitic vol] 91.6 fL Normal 80.0-94.0 [facility] Comment on above: Performed By: #### C BC #### [facility] [address] [address] [address] Manuel Callejas MONO # 0.6 103/ul Normal 0.3-0.8 [facility] Comment on above: Performed By: #### C BC #### [facility] [address] [place] [address] Dr. Manuel Callejas Monocytes/100 WBC (Bld) 9.8 % Normal 1.7-12.0 [facility] Comment on above: Performed By: #### C BC #### [facility] [address] [place] [address] Dr. Manuel Callejas NEUT # 3.1 103/ul Normal 1.4-6.5 [facility] Comment on above: Performed By: #### C BC #### [facility] [address] [place] [address] Dr. Manuel Callejas Neutrophils/100 WBC (Bld) 54.7 % Normal 43.0-75.0 [facility] Comment on above: Performed By: #### C BC #### [facility] [address] [place], [place] [id number] Dr. Manuel Callejas Platelet mean volume (Bld) [Entitic vol] 9.6 fL Normal 9.5-13.5 [facility] Comment on above: Performed By: #### C BC #### [facility] [address] [place] [address] Dr. Manuel Callejas PLT 189 103/ul Normal 150-450 [facility] Comment on above: Performed By: #### C BC #### [facility] [address] [address] [address] Manuel Callejas RBC 4.16 106/ul Critically low 4.70-6.[address] [facility] Comment on above: Performed By: #### C BC #### [facility] [address] [place] [address] Dr. Manuel Callejas WBC 5.7 103/ul Normal 4.0-11.0 [facility] Comment on above: Performed By: #### C BC #### [facility] [address] [place] [address] Dr. Manuel Callejas GLYCOHEMOGLOBIN A1Con 2021 ADA RECOMMENDATION SEE BELOW Normal [facility] Comment on above: Result Comment: ADA RECOMMENDED LIMIT 4.0 - 6.0 ADA THERAPEUTIC TARGET < 7.0 ACTION SUGGESTED > 7.0 Performed By: #### A 1C #### [facility] [address] [place] [address] Dr. Manuel Callejas Glucose [Mass/Vol] 137 mg/dL Normal [facility] Comment on above: Performed By: #### A 1C #### [facility] [address] [place] [address] Dr. Manuel Callejas HbA1c (Bld) [Mass fraction] 6.4 % Critically high 4.5-6.2 [facility] Comment on above: Performed By: #### A 1C #### [facility] [address] [place] [address] Dr. Manuel Callejas LIPID PROFILEon 07-08-2022 CHOL-HDL RATIO NORM SEE BELOW Normal [facility] Comment on above: Result Comment: 3.3 - 4.4 LOW RISK 4.4 - 7.1 AVERAGE RISK 7.1 - 11.0 MODERATE RISK >11.0 HIGH RISK Performed By: #### C MP, LIPID #### [facility] [address] [place] [address] Dr. Manuel Callejas Cholesterol [Mass/Vol] 155 mg/dL Normal <=200 [facility] Comment on above: Performed By: #### C MP, LIPID #### [facility] [address] [place] [address] Dr. Manuel Callejas Cholesterol in HDL [Mass/Vol] 44 mg/dL Normal 40-60 [facility] Comment on above: Performed By: #### C MP, LIPID #### [facility] [address] [address] [address] Manuel Callejas Cholesterol in LDL [Mass/Vol] 98.2 mg/dL Normal [facility] Comment on above: Performed By: #### C MP, LIPID #### [facility] [address] [place] [address] Dr. Manuel Callejas Cholesterol.total/Ch olesterol in HDL [Mass ratio] 3.5 {ratio} Normal [facility] Comment on above: Performed By: #### C MP, LIPID #### [facility] [address] [place] [address] Dr. Manuel Callejas HDL NORMAL > or = 60 mg/dl - LO W CARDIOVASCULAR RISK <40 mg/dl - HIGH CARDIOVASCULAR RISK Normal [facility] Comment on above: Performed By: #### C MP, LIPID #### [facility] [address] [place] [address] Dr. Manuel Callejas LDL CALC NORMAL SEE BELOW Normal [facility] Comment on above: Result Comment: <100 mg/dl OPTIMAL 100 - 129 mg/dl NEAR OR ABOVE OPTIMAL 130 - 159 mg/dl BORDERLINE HIGH 160 - 189 mg/dl HIGH >190 mg/dl VERY HIGH Performed By: #### C MP, LIPID #### [facility] [address] [place] [address] Dr. Manuel Callejas Triglyceride [Mass/Vol] 64 mg/dL Normal <=150 [facility] Comment on above: Performed By: #### C MP, LIPID #### [facility] [address] [place] [address] Dr. Manuel Callejas VLDL CALC 12.8 mg/dL Normal [facility] Comment on above: Performed By: #### C MP, LIPID #### [facility] [address] [place] [address] Dr. Manuel Callejas PROF 14(COMP METB)on 022 Albumin [Mass/Vol] 3.8 g/dL Normal 3.4-5.0 [facility] Comment on above: Performed By: #### C MP, LIPID #### [facility] [address] [address] [address] Manuel Callejas Albumin/Globulin [Mass ratio] 1.1 {ratio} Normal [facility] Comment on above: Performed By: #### C MP, LIPID #### [facility] [address] [address] [address] Manuel Callejas ALP [Catalytic activity/Vol] 86 U/L Normal 46-116 [facility] Comment on above: Performed By: #### C MP, LIPID #### [facility] [address] [address] [address] Manuel Callejas ALT [Catalytic activity/Vol] 26 U/L Normal 16-63 [facility] Comment on above: Performed By: #### C MP, LIPID #### [facility] [address] [place] [address] Dr. Manuel Callejas Anion gap [Moles/Vol] 13.8 mmol/L Normal [facility] Comment on above: Performed By: #### C MP, LIPID #### [facility] [address] [place] [address] Dr. Manuel Callejas AST [Catalytic activity/Vol] 18 U/L Normal 15-37 [facility] Comment on above: Performed By: #### C MP, LIPID #### [facility] [address] [address] [address] Manuel Callejas Bilirubin [Mass/Vol] 0.6 mg/dL Normal 0.2-1.0 [facility] Comment on above: Performed By: #### C MP, LIPID #### [facility] [address] [address] [address] Manuel Callejas Calcium [Mass/Vol] 8.8 mg/dL Normal 8.5-10.1 [facility] Comment on above: Performed By: #### C MP, LIPID #### [facility] [address] [address] [address] Manuel Callejas Chloride [Moles/Vol] 103 mmol/L Normal 98-107 [facility] Comment on above: Performed By: #### C MP, LIPID #### [facility] [address] [address] [address] Manuel Callejas CO2 [Moles/Vol] 28.9 mmol/L Normal 21.0-32.0 [facility] Comment on above: Performed By: #### C MP, LIPID #### [facility] [address] [place] [address] Dr. Manuel Callejas Creatinine [Mass/Vol] 1.20 mg/dL Normal 0.70-1.30 [facility] Comment on above: Performed By: #### C MP, LIPID #### [facility] [address] [place] [address] Dr. Manuel Callejas EGFR-AF TURKISH >60 Normal >=60 [facility] Comment on above: Performed By: #### C MP, LIPID #### [facility] [address] [place] [address] Dr. Manuel Callejas EGFR-NON AF TURKISH =60 Normal >=60 [facility] Comment on above: Performed By: #### C MP, LIPID #### [facility] [address] [place] [address] Dr. Manuel Callejas Globulin (S) [Mass/Vol] 3.6 g/dL Normal [facility] Comment on above: Performed By: #### C MP, LIPID #### [facility] [address] [place] [address] Dr. Manuel Callejas Glucose [Mass/Vol] 146 mg/dL Critically high 74-[address] [facility] Comment on above: Performed By: #### C MP, LIPID #### [facility] [address] [place] [address] Dr. Manuel Callejas Potassium [Moles/Vol] 3.7 mmol/L Normal 3.5-5.1 [facility] Comment on above: Performed By: #### C MP, LIPID #### [facility] [address] [place] [address] Dr. Manuel Callejas Protein [Mass/Vol] 7.4 g/dL Normal 6.4-8.2 [facility] Comment on above: Performed By: #### C MP, LIPID #### [facility] [address] [place] [address] Dr. Manuel Callejas Sodium [Moles/Vol] 142 mmol/L Normal 136-145 [facility] Comment on above: Performed By: #### C MP, LIPID #### [facility] [address] [place] [address] Dr. Manuel Callejas Urea nitrogen [Mass/Vol] 31.0 mg/dL Critically high 7.0-18.0 [facility] Comment on above: Performed By: #### C MP, LIPID #### [facility] [address] [place] [address] Dr. Manuel Callejas Urea nitrogen/Creatinine [Mass ratio] 25.8 mg/mg Normal [facility] Comment on above: Performed By: #### C MP, LIPID #### [facility] [address] [place] [address] Dr. Manuel Callejas CBC AUTO DIFFon 05-27-2022 BASO # 0.0 103/ul Normal 0.0-0.1 [facility] Comment on above: Performed By: #### V ITAD #### [facility] [address] [place] [address] Dr. Manuel Callejas Basophils/100 WBC (Bld) 0.5 % Normal 0.2-2.0 [facility] Comment on above: Performed By: #### V ITAD #### [facility] [address] [place] [address] Dr. Manuel Callejas EO # 0.2 103/ul Normal 0.0-0.7 [facility] Comment on above: Performed By: #### V ITAD #### [facility] [address] [place] [address] Dr. Manuel Callejas Eosinophils/100 WBC (Bld) 2.2 % Normal 0.9-7.0 [facility] Comment on above: Performed By: #### V ITAD #### [facility] [address] [place] [address] Dr. Manuel Callejas Erythrocyte distribution width (RBC) [Ratio] 12.0 % Normal 11.0-15.0 [facility] Comment on above: Performed By: #### V ITAD #### [facility] [address] [address] [address] Manuel Callejas Hematocrit (Bld) [Volume fraction] 38.5 % Critically low 42.0-54.0 [facility] Comment on above: Performed By: #### V ITAD #### [facility] [address] [place] [address] Dr. Manuel Callejas Hemoglobin (Bld) [Mass/Vol] 13.1 g/dL Critically low 14.0-18.0 [facility] Comment on above: Performed By: #### V ITAD #### [facility] [address] [place] [address] Dr. Manuel Callejas IG # 0.05 10e3/ul Critically high 0.00-0.03 [facility] Comment on above: Performed By: #### V ITAD #### [facility] [address] [place] [address] Dr. Manuel Callejas IG % 0.6 % Critically high 0.0-0.[address] [facility] Comment on above: Performed By: #### V ITAD #### [facility] [address] [place] [address] Dr. Manuel Callejas LYMPH # 2.2 103/ul Normal 1.2-3.8 [facility] Comment on above: Performed By: #### V ITAD #### [facility] [address] [place] [address] Dr. Manuel Callejas Lymphocytes/100 WBC (Bld) 27.1 % Normal 20.5-60.0 [facility] Comment on above: Performed By: #### V ITAD #### [facility] [address] [place] [address] Dr. Manuel Callejas MANUAL DIFF REQ NO Normal [facility] Comment on above: Performed By: #### V ITAD #### [facility] [address] [place] [address] Dr. Manuel Callejas MCH (RBC) [Entitic mass] 31.4 pg Normal 25.9-34.0 [facility] Comment on above: Performed By: #### V ITAD #### [facility] [address] [address] [address] Manuel Callejas MCHC (RBC) [Mass/Vol] 34.0 g/dL Normal 29.9-35.2 [facility] Comment on above: Performed By: #### V ITAD #### [facility] [address] [place] [address] Dr. Manuel Callejas MCV (RBC) [Entitic vol] 92.3 fL Normal 80.0-94.0 [facility] Comment on above: Performed By: #### V ITAD #### [facility] [address] [place] [address] Dr. Manuel Callejas MONO # 0.7 103/ul Normal 0.3-0.8 [facility] Comment on above: Performed By: #### V ITAD #### [facility] [address] [place] [address] Dr. Manuel Callejas Monocytes/100 WBC (Bld) 9.1 % Normal 1.7-12.0 [facility] Comment on above: Performed By: #### V ITAD #### [facility] [address] [place] [address] Dr. Manuel Callejas NEUT # 5.0 103/ul Normal 1.4-6.5 [facility] Comment on above: Performed By: #### V ITAD #### [facility] [address] [place] [address] Dr. Manuel Callejas Neutrophils/100 WBC (Bld) 60.5 % Normal 43.0-75.0 [facility] Comment on above: Performed By: #### V ITAD #### [facility] [address] [place] [address] Dr. Manuel Callejas Platelet mean volume (Bld) [Entitic vol] 9.1 fL Critically low 9.5-13.5 [facility] Comment on above: Performed By: #### V ITAD #### [facility] [address] [place] [address] Dr. Manuel Callejas PLT 202 103/ul Normal 150-450 [facility] Comment on above: Performed By: #### V ITAD #### [facility] [address] [address] [address] Manuel Callejas RBC 4.17 106/ul Critically low 4.70-6.[address] [facility] Comment on above: Performed By: #### V ITAD #### [facility] [address] [address] [address] Manuel Callejas WBC 8.2 103/ul Normal 4.0-11.0 [facility] Comment on above: Performed By: #### V ITAD #### [facility] [address] [address] [address] Manuel Callejas PROF CHEM 8 (BAS METB)on Anion gap [Moles/Vol] 13.2 mmol/L Normal [facility] Comment on above: Performed By: #### B MP #### [facility] [address] [address] [address] Manuel Callejas Calcium [Mass/Vol] 8.9 mg/dL Normal 8.5-10.1 [facility] Comment on above: Performed By: #### B MP #### [facility] [address] [address] [address] Manuel Callejas Chloride [Moles/Vol] 106 mmol/L Normal 98-107 [facility] Comment on above: Performed By: #### B MP #### [facility] [address] [address] [address] Manuel Callejas CO2 [Moles/Vol] 25.9 mmol/L Normal 21.0-32.0 [facility] Comment on above: Performed By: #### B MP #### [facility] [address] [address] [address] Manuel Callejas Creatinine [Mass/Vol] 1.38 mg/dL Critically high 0.70-1.30 [facility] Comment on above: Performed By: #### B MP #### [facility] [address] [address] [address] Manuel Callejas EGFR-AF TURKISH >60 Normal >=60 [facility] Comment on above: Performed By: #### B MP #### [facility] [address] [address] [address] Manuel Callejas EGFR-NON AF TURKISH 51 mL/min/1.73m2 Critically low >=60 [facility] Comment on above: Performed By: #### B MP #### [facility] [address] [address] [address] Manuel Callejas Glucose [Mass/Vol] 126 mg/dL Critically high 74-[address] [facility] Comment on above: Performed By: #### B MP #### [facility] [address] [address] [address] Manuel Callejas Potassium [Moles/Vol] 4.1 mmol/L Normal 3.5-5.1 [facility] Comment on above: Performed By: #### B MP #### [facility] [address] [address] [address] Manuel Callejas Sodium [Moles/Vol] 141 mmol/L Normal 136-145 [facility] Comment on above: Performed By: #### B MP #### [facility] [address] [address] [address] Manuel Callejas Urea nitrogen [Mass/Vol] 31.0 mg/dL Critically high 7.0-18.0 [facility] Comment on above: Performed By: #### B MP #### [facility] [address] [address] [address] Manuel Callejas Urea nitrogen/Creatinine [Mass ratio] 22.5 mg/mg Normal [facility] Comment on above: Performed By: #### B MP #### [facility] [address] [address] [address] Manuel Callejas CALCIUM IONIZEDon 02-26-2022 Calcium, Ionized, Serum 4.9 mg/dL Normal 4.5-5.6 [facility] Comment on above: Performed By: #### V ITAD #### [facility] [address] [address] [address] Manuel Callejas PTH INTACTon 02-26-2022 PTH, Intact 29 pg/mL Normal 15-65 [facility] Comment on above: Performed By: #### P THINT #### [facility] [address] [address] [address] Manuel Callejas PROF CHEM 8 (BAS METB)on Anion gap [Moles/Vol] 8.9 mmol/L Normal [facility] Comment on above: Performed By: #### V ITAD #### [facility] [address] [place] [address] Dr. Manuel Callejas Calcium [Mass/Vol] 8.6 mg/dL Normal 8.5-10.1 [facility] Comment on above: Performed By: #### V ITAD #### [facility] [address] [place] [address] Dr. Manuel Callejas Chloride [Moles/Vol] 105 mmol/L Normal 98-107 [facility] Comment on above: Performed By: #### V ITAD #### [facility] [address] [place] [address] Dr. Manuel Callejas CO2 [Moles/Vol] 32.5 mmol/L Critically high 22.0-30.0 [facility] Comment on above: Performed By: #### V ITAD #### [facility] [address] [place] [address] Dr. Manuel Callejas Creatinine [Mass/Vol] 1.08 mg/dL Normal 0.66-1.25 [facility] Comment on above: Performed By: #### V ITAD #### [facility] [address] [place] [address] Dr. Manuel Callejas EGFR-AF TURKISH >60 Normal >=60 [facility] Comment on above: Performed By: #### V ITAD #### [facility] [address] [place] [address] Dr. Manuel Callejas EGFR-NON AF TURKISH >60 Normal >=60 [facility] Comment on above: Performed By: #### V ITAD #### [facility] [address] [place] [address] Dr. Manuel Callejas Glucose [Mass/Vol] 137 mg/dL Critically high 74-106 [facility] Comment on above: Performed By: #### V ITAD #### [facility] [address] [address] [address] Manuel Callejas Potassium [Moles/Vol] 3.4 mmol/L Normal 3.4-5.0 [facility] Comment on above: Performed By: #### V ITAD #### [facility] [address] [address] [address] Manuel Callejas Sodium [Moles/Vol] 143 mmol/L Normal 137-145 [facility] Comment on above: Performed By: #### V ITAD #### [facility] [address] [address] [address] Manuel Callejas Urea nitrogen [Mass/Vol] 23.0 mg/dL Critically high 7.0-18.0 [facility] Comment on above: Performed By: #### V ITAD #### [facility] [address] [place] [address] Dr. Manuel Callejas Urea nitrogen/Creatinine [Mass ratio] 21.3 mg/mg Normal [facility] Comment on above: Performed By: #### V ITAD #### [facility] [address] [place] [address] Dr. Manuel Callejas URINE T PROTEIN CREAT RATIOo n 02-25-2022 Protein (U) [Mass/Vol] 16.9 mg/dL Critically high <=12.0 [facility] Comment on above: Performed By: #### U RTPCR #### [facility] [address] [address] [address] Manuel Callejas UR PROT CREAT RAT 0.31 Normal [facility] Comment on above: Performed By: #### U RTPCR #### [facility] [address] [address] [address] Manuel Callejas URINE CREAT 53.91 mg/dL Normal 20.00-300.00 [facility] Comment on above: Performed By: #### U RTPCR #### [facility] [address] [place] [address] Dr. Manuel Callejas VITAMIN D 25 OHon 02-25-2022 VIT D 25-OH 20.9 ng/mL Normal [facility] Comment on above: Performed By: #### V ITAD #### [facility] [address] [address] [address] Manuel Callejas VIT D RANGES SEE BELOW Normal [facility] Comment on above: Result Comment: <20 ng/mL Vit D deficient 20 - <30 ng/mL Vit D insufficient 30 - 100 ng/mL Vit D sufficient >100 ng/mL Potential Toxicity Performed By: #### V ITAD #### [facility] [address] [address] [address] Manuel Callejas Cardiovascular Lab Reporton 01-09-2021 Cardiovascular Lab Report [facility] #: [id number] Physician: Ten Eckert MD Department of Service Date: 01/09/2021 Medicine Birthdate: 1950 Division of Room #: Cardiology Adult Cardiovascular Services [address] [place] [address] Cardiovascular Laboratory Report DIRECT CARDIOVERSION PROCEDURE NOTE [...] form. The patient was brought to the lab courier and direct current cardioversion was performed under [...] P/Fran Dillard MD Date Trans: 01/09/2021 01:21 P/cathie [id number] cc: Patti Thomas M.D. [address] [facility] Bldg[address] B [facility] [address] Normal [facility] POC GLUCOSE LABon 11-30-2020 Glucose [Mass/Vol] 131 mg/dL High 70-100 [facility] Comment on above: Performed By: #### 8 5499 #### [facility] [address] *MRSA/MSSA DNA NASALon 11-29 *MRSA/MSSA DNA NASAL Clinical Report: (D ) Specimen: NASAL SWAB Collected: 11/29/2020 06:30 Status: Final Last Updated: 11/29/2020 11:37 MSSA DNA (Final) Negative MRSA DNA (Final) Negative Normal [facility] Comment on above: Performed By: #### 3 1595 #### [address] Cardiovascular Lab Reporton 11-29-2020 Cardiovascular Lab Report [facility] Patient Name: [facility] MR #: [id number] Department of Physician: Ten Eckert MD Medicine Service Date: 11/29/2020 Division of Birthdate: 1950 Cardiology Room #: 3AB 282674 Adult Cardiovascular Services [address] [address] Cardiovascular Laboratory Report ATRIAL FIBRILLATION ABLATION PROCEDURE [...] mildly enlarged. Esophagus was mapped using the kSARIAUND 3D mapping software with esophastar catheter and [...] blo (more content not included)... Normal [facility] POC GLUCOSE LABon 11-29-2020 Glucose [Mass/Vol] 136 mg/dL High 70-100 [facility] Comment on above: Performed By: #### 8 5499 #### [facility] [address] [facility] [place] [address], [facility] Glucose [Mass/Vol] 133 mg/dL High 70-100 [facility] Comment on above: Performed By: #### 8 5499 #### [facility] [address] [facility] [place] [address], [facility] PROTHROMBIN TIMEon 1 INR Coag (PPP) [Relative time] 1.04 {INR} Normal 0.91-1.16 [facility] Comment on above: Result Comment: ACCC [...] Performed By: #### 5 6101 #### [facility] [address] [facility]. [address] PT Coag (PPP) [Time] 13.6 s Normal 12.3-14.8 [facility] Comment on above: Result Comment: ALL RESULTS MUST BE INTERPRETED WITH RESPECT TO BLOOD DRAWING ARTIFACT OR DILUTION ERROR OF ANTICOAGULANT AT THE TIME OF SAMPLING. Performed By: #### 5 6101 #### [facility] [address] [facility] [address] TYPE AND CROSSMATCHon 2020 ABO INTERPRETATION B Normal [facility] Comment on above: Performed By: #### 6 2594 #### [facility] [address] [facility] [place] [address], [facility] RH INTERPRETATION Positive Normal [facility] Comment on above: Performed By: #### 6 2594 #### [facility] [address] [facility] [address] *SARS-CoV-2 COVID-19on 11-27 SARS-CoV-2 (COVID-19) RNA HARPREET+probe Ql (Unsp spec) Not detected Normal Not Detected [facility] Comment on above: Order Comment: The A ptima SARS-CoV-2 assay is a nucleic acid amplification test intended for the qualitative detection of RNA from SARS-CoV-2 isolated and purified from nasopharyngeal (MANAGER STRATEGIC SOURCING),oropharyngeal (OP), nasal swab, sputum, and bronchoalveolar lavage (BAL) specimens from patients with signs and symptoms of infection who are suspected of COVID-19. Results are for the identification of SARS-CoV-2 RNA. The SARS-CoV-2 RNA is generally detectable during the acute phase of infection. The Aptima SARS-CoV-2 Assay on the Mobly [employer] system is intended for use by laboratory personnel specifically instructed and trained in the operation of the [place] and Mob[employer] Fusion system. The Aptima SARS-CoV-2 assay is [...] Performed By: #### 3 1792 #### [facility] [address] [place] [address], [facility] CREATININE BLOODon 1 Creatinine [Mass/Vol] 1.06 mg/dL Normal 0.70-1.30 [facility] Comment on above: Performed By: #### 2 5656 #### [facility] [address] [place] [address], [place] GFR/1.73 sq M.predicted among blacks MDRD (S/P/Bld) [Vol rate/Area] mL/min/{1.73_m2} Normal >60 [facility] Comment on above: Performed By: #### 2 5656 #### [facility] [address] [place] [address], [place] GFR/1.73 sq M.predicted among non-blacks MDRD (S/P/Bld) [Vol rate/Area] mL/min/{1.73_m2} Normal >60 [facility] Comment on above: Performed By: #### 2 5656 #### [address] CTA CHESTon 11-27-2020 CTA CHEST [facility] Department of Radiology [address] [place] [id number] Patient Name: ALINE TOMLIN : 1950 Sex: M Age: Race: White Pt. Location: [facility] Patient Status: D Ordered Date: 10/26/2020 11:15:00 AM Completed Date: 11/27/2020 12:09 PM Requesting Provider: TEN ECKERT Attending Provider: TEN ECKERT Report Copy To: PATTI THOMAS Signs & Symptoms: I48.0 Paroxysmal atrial fibrillation I10 History: Magy OK with Amanda - patient will come early for labs. NPC Req. Per Medicare A/B for CPT 52550 Med Nec-Passed 11/13/20 *SLA Comments: CT pulmonary [...] spondylosis. Electronically signed: Parvin Valencia. Transcribed by: [email or web address], User Resident: Electronically Signed by: CARLO BARILLAS @ 12/09/2020 07:48 AM Normal [facility] Comment on above: Order Comment: CT pu lmonary veins for afib ablation CNOVon 09-01-2019 CNOV Office Visit (UROLMN ) ANA LUISAALINE ([id number]) 1950 M Date Time Provider Department 09/01/19 2:30 PM JEFF WRIGHT UROCLIFF During your visit today, we recorded the [...] Wright MD, FACS Director, Surgical Stone Disease, [facility] pill maker, [facility] Pager [phone] 09/01/2019 Referring Provider: DANNY HORNER [[id number]] Allergies As of Date: 09/01/2019 Noted Allergy [...] Status:Closed by JEFF WRIGHT MD on 09/01/19 [facility] CNPTOUTREACHolonnie 09-01-2019 CNPTOUTREACH Patient Outreach (UROLMN) ALINE TOMLIN ([id number]) 1950 M Date Time Provider Department 09/01/19 [...] pain [R10.9] INVALID FOR* Encounter Status:Closed by [employer], PRODUSER [facility]16/19 [facility] ([facility]PHMN) ALINE TOMLIN ([id number]) 1950 M Date Time Provider Department 09/01/19 JEFF WRIGHT NEPHMN During your visit today, we recorded the following information about you: Allergies As of Date: 09/01/2019 Noted Allergy Reaction ADHESIVE TAPE (ROSINS) 06/03/2019 2 - Rash 9 - Itching 14 - Other: See Comments PENICILLINS 06/03/2019 14 - Other: See Comments Date Reviewed: 09/01/2019 Reviewed by: aJnene Barroso - Fully Assessed Visit Diagnosis:Renal calculi [N20.0] Order(s):UA CHEMSTRIP ONLY [SQUA] Order #: [id number]. #:[id number] Prescriptions as of 09/01/2019 Sig: METFORMIN 500 [...] TABLET Take 10 mg by mouth once daamris* OXYBUTYNIN CHLORIDE 5 MG TABL* Take 5 [...] pain [R10.9] INVALID FOR* Encounter Status:Closed by ERNESTINA MILLER on 09/16/19 [facility] PROGRESSon 09-01-2019 PROGRESS HNO ID: [id number] Author: Jeff Wright Service: ? Author Type: [...] Wright MD, FACS Director, Surgical Stone Disease, [facility] pill maker, [facility] Pager [phone] 09/01/2019 Normal [facility] Urinalysison 09-01-2019 Bilirubin, Urine Negative Normal [facility] Comment on above: Performed By: #### U A ####[address] [phone] Clarity (U) Clear Normal Clear [facility] Comment on above: Performed By: #### U A ####[address] [phone] Color (U) Yellow Normal Yellow [facility] Comment on above: Performed By: #### U A ####[address] [phone] Comments SEE COMMENT Normal [facility] Comment on above: Result Comment: Micr oscopic not warranted Performed By: #### U A ####[address] [phone] Glucose Ql (U) Negative Normal Negative [facility] Comment on above: Performed By: #### U A ####[place] [address] [address] [phone] Hemoglobin/Blood,Ur Negative Normal Negative [facility] Comment on above: Performed By: #### U A ####[place] [address] [address] [phone] Ketones Ql (U) Negative Normal Negative [facility] Comment on above: Performed By: #### U A ####[place] [address] [address] [phone] Leukest Negative Normal Negative [facility] Comment on above: Performed By: #### U A ####[place] [address] [address] [phone] Nitrite Ql (U) Negative Normal Negative [facility] Comment on above: Performed By: #### U A ####[place] [address] [address] [phone] pH (Bld) 5.5 Normal 4.5-8.0 [facility] Comment on above: Performed By: #### U A ####[place] [phone] Protein (U) [Mass/Vol] Negative Normal Negative [facility] Comment on above: Performed By: #### U A ####[place] [address] [address] [phone] Specific [place], Ur 1.021 Normal 1.005-1.030 [facility] Comment on above: Performed By: #### U A ####[place] [address] [address], [place] [phone] Urine Royer Comment SEE COMMENT Normal [facility] Comment on above: Result Comment: N/A Performed By: #### U A ####[facility] [address] [place], [place] [phone] Urobilinogen Qn (U) Normal Normal Normal [facility] Comment on above: Performed By: #### U A ####[facility] [place], [place] [phone] CNOVon 06-14-2019 CNOV Office Visit (UROLMN ) ALINE TOMLIN ([id number]) 1950 M Date Time Provider Department 06/14/19 [...] file Gets together: Not on file Attends christianity service: Not on file Active member of [...] Negative Negative Ketones, Urine Negative Negative Specific [place], Ur 1.005 - 1.030 1.007 Hemoglobin/Blood,Ur Negative [...] stone 04/30 double J stent placed at [facility] Review, other organ system: GI: Blood: No Constipation: No Diarrhea: No Nausea/Vomiting: No OTHER: denies pain Claudette Cerda LEASE EXAMINER UROLOGY NOTE: We had the pleasure of [...] based on size, location, hounsfield units and rzdk-dw-pbboa distance: 80-85% 3. Ureteroscopy - risks of [...] with more than 50% of the total aggu-dw-oomj time of the visit devoted to patient counseling/coordinati on of care. Jeff Wright MD Director, Surgical Stone Disease [facility] Pager [phone] 06/14/2019 Jeff Wright MD 06/14/2019 11:39 AM [...] urinalysis [R82.90] Order(s):URINE CULTURE [SQURCUL] Order #: [id number] Prescriptions as of 06/14/2019 Sig: METFORMIN 500 [...] by JEFF WRIGHT MD on 06/14/19 Normal [facility] Urinalysison 06-14-2019 Bilirubin, Urine Negative Normal [facility] Comment on above: Performed By: #### U A #### [place] [address] Cast SEE COMMENT Critically abnormal 0 [facility] Comment on above: Result Comment: 1-3 Hyaline Cast Performed By: #### U A #### [place] [address] Clarity (U) Clear Normal Clear [facility] Comment on above: Performed By: #### U A #### [place] [phone] Color (U) Yellow Normal Yellow [facility] Comment on above: Performed By: #### U A #### [place] [address] Comments SEE COMMENT Normal [facility] Comment on above: Result Comment: Micr oscopic Examination Performed Performed By: #### U A #### [facility] [place] [phone] Glucose Ql (U) Negative Normal Negative [facility] Comment on above: Performed By: #### U A #### [facility] [address] [place] [phone] Hemoglobin/Blood,Ur 3+ Critically abnormal Negative [facility] Comment on above: Performed By: #### U A #### [place] [phone] Ketones Ql (U) Negative Normal Negative [facility] Comment on above: Performed By: #### U A #### [facility] [address] [place] [address] Leukest 1+ Critically abnormal Negative [facility] Comment on above: Performed By: #### U A #### [place] [address] [place] [phone] Nitrite Ql (U) Negative Normal Negative [facility] Comment on above: Performed By: #### U A #### [place] [address] pH (Bld) 5.5 Normal 4.5-8.0 [facility] Comment on above: Performed By: #### U A #### [place] [address] Protein (U) [Mass/Vol] Trace Critically abnormal Negative [facility] Comment on above: Performed By: #### U A #### [place] [address] RBC (U) [#/Vol] /uL Critically abnormal 0-3 [facility] Comment on above: Performed By: #### U A #### [place] [address] Specific [place], Ur 1.007 Normal 1.005-1.030 [facility] Comment on above: Performed By: #### U A #### [place] [address] [place] [address] Urine Royer Comment SEE COMMENT Normal [facility] Comment on above: Result Comment: N/A Performed By: #### U A #### [place] [phone] Urobilinogen Qn (U) Normal Normal Normal [facility] Comment on above: Performed By: #### U A #### [address] [place], [place] [address] WBC (Bld) [#/Vol] 0-5 Normal 0-5 [facility] Comment on above: Performed By: #### U A #### [facility] [address] [place] [phone] Urine Cultureon 06-14-2019 Bacteria identified Cx Nom (U) Sp. Request/Comment: - Specimen received in preservative Culture Result - No growth (<1,000 CFU/ml) [facility] Comment on above: Performed By: #### U RCUL #### [address] [address] CNPTOUTREACHon 06-13-2019 CNPTOUTREACH Patient Outreach (UROLMN) ALINE TOMLIN ([id number]) 1950 M Date Time Provider Department 06/13/19 JEFF WRIGHT During your visit today, we recorded the following information about you: Allergies As of Date: 06/13/2019 (Not on File) Date Reviewed: Never Reviewed Visit Diagnosis:Renal calculi [N20.0] Order(s):UA CHEMSTRIP ONLY [SQUA] Order #: [id number]. #:[id number] Problem List As Of Date: 06/13/2019 (None) Encounter Status:Closed by ERNESTINA MILLER on 06/28/19 [facility] PROGRESSon 06-13-2019 PROGRESS HNO ID: [id number] Author: Jeff Wright Service: ? Author Type: [...] file Gets together: Not on file Attends christianity service: Not on file Active member of [...] Negative Negative Ketones, Urine Negative Negative Specific [place], Ur 1.005 - 1.030 1.007 Hemoglobin/Blood,Ur Negative [...] stone 04/30 double J stent placed at [facility] Review, other organ system: GI: Blood: No Constipation: No Diarrhea: No Nausea/Vomiting: No OTHER: denies pain Claudette Cerda LEASE EXAMINER UROLOGY NOTE: We had the pleasure of [...] based on size, location, hounsfield units and rifo-jr-fkkkn distance: 80-85% 3. Ureteroscopy - risks of [...] with more than 50% of the total kvpp-mz-vypd time of the visit devoted to patient counseling/coordinati on of care. Jeff Wright MD Director, Surgical Stone Disease [facility], [facility] Pager [phone] 06/14/2019 [facility] TN-XR KUB 1 VIEW IMPORTon TN-XR KUB 1 VIEW IMPORT Images were obtained outside of [facility] [id number] [facility] TN-XR KUB 1 VIEW IMPORT Images were obtained outside of [facility] [id number] [facility] RF-XR RETROGRADE PYELOGRAM I MPORTon 04-30-2019 RF-XR RETROGRADE PYELOGRAM IMPORT Images were obtained outside of [facility] [id number] [facility] RF-XR RETROGRADE PYELOGRAM IMPORT Images were obtained outside of [facility] [id number] Normal [facility] CT-CT ABD/PELVIS W CON IMPOR Ton 04-29-2019 CT-CT ABD/PELVIS W CON IMPORT Images were obtained outside of [facility] [id number] Normal [facility] TN-CT ABD/PELVIS W CON IMPOR Ton 04-29-2019 TN-CT ABD/PELVIS W CON IMPORT Images were obtained outside of [facility] [id number] N Normal [facility] Vital Signs Date Time Vital Sign Value Performing Clinician Facility 04-26-2025 11:33-0400 Body mass index (BMI) [Ratio] 27.39 kg/m2 Patti Dunn-[place] DO Work Phone: [facility] 04-26-2025 11:33-0400 Body weight 104.78 kg Patti Dunn-[place] DO Work Phone: [facility] 04-26-2025 11:33-0400 Diastolic blood pressure 72 mm[Hg] Patti Dunn-[place] DO Work Phone: [facility] 04-26-2025 11:33-0400 Heart rate 45 /min Patti Dunn-[place] DO Work Phone: [facility] 04-26-2025 11:33-0400 SaO2% (BldA) [Mass fraction] 98 % Patti Dunn-[place] DO Work Phone: [facility] 04-26-2025 11:33-0400 Systolic blood pressure 124 mm[Hg] Patti Dunn-[place] DO Work Phone: [facility] 03-23-2025 13:15-0400 Body mass index (BMI) [Ratio] 28.63 kg/m2 Patti Dunn-[place] DO Work Phone: [facility] 03-23-2025 13:15-0400 Body weight 109.5 kg Patti Dunn-[place] DO Work Phone: [facility] 03-23-2025 13:15-0400 Diastolic blood pressure 72 mm[Hg] Patti Dunn-[place] DO Work Phone: [facility] 03-23-2025 13:15-0400 Heart rate 63 /min Patti Dunn-[place] DO Work Phone: [facility] 03-23-2025 13:15-0400 SaO2% (BldA) [Mass fraction] 99 % Patti Dunn-[place] DO Work Phone: [facility] 03-23-2025 13:15-0400 Systolic blood pressure 138 mm[Hg] Patti Dunn-[place] DO Work Phone: [facility] 12-16-2024 13:05-0500 Body mass index (BMI) [Ratio] 29.05 kg/m2 Patti Dunn-[place] DO Work Phone: [facility] 12-16-2024 13:05-0500 Body weight 111.13 kg Patti Dunn-[place] DO Work Phone: [facility] 12-16-2024 13:05-0500 Diastolic blood pressure 78 mm[Hg] Patti Dunn-[place] DO Work Phone: [facility] 12-16-2024 13:05-0500 Heart rate 72 /min Patti Dunn-[place] DO Work Phone: [facility] 12-16-2024 13:05-0500 SaO2% (BldA) [Mass fraction] 97 % Patti Dunn-[place] DO Work Phone: [facility] 12-16-2024 13:05-0500 Systolic blood pressure 138 mm[Hg] Patti Dunn-[place] DO Work Phone: [facility] 08-09-2024 13:43-0400 Body mass index (BMI) [Ratio] 29.1 kg/m2 Patti Dunn-[place] DO Work Phone: [facility] 08-09-2024 13:43-0400 Body weight 111.31 kg Patti Dunn-[place] DO Work Phone: [facility] 08-09-2024 13:43-0400 Diastolic blood pressure 76 mm[Hg] Patti Dunn-[place] DO Work Phone: [facility] 08-09-2024 13:43-0400 Heart rate 67 /min Patti Dunn-[place] DO Work Phone: [facility] 08-09-2024 13:43-0400 SaO2% (BldA) [Mass fraction] 99 % Patti Dunn-Midlothian DO Work Phone: [facility] 08-09-2024 13:43-0400 Systolic blood pressure 138 mm[Hg] Patti Dunn-Midlothian DO Work Phone: [facility] 03-02-2024 09:18-0400 Body temperature 97.7 [degF] Danny Cold Crate [facility] 03-02-2024 09:18-0400 Diastolic blood pressure 82 mm[Hg] Danny COOK [facility] 03-02-2024 09:18-0400 Heart rate 71 /min Danny COOK [facility] 03-02-2024 09:18-0400 Respiratory rate 19 /min Danny COOK [facility] 03-02-2024 09:18-0400 Systolic blood pressure 137 mm[Hg] Danny COOK [facility] 10-28-2023 07:54-0500 Blood Pressure Location Danny COOK [facility] 10-28-2023 07:54-0500 Diastolic blood pressure 76 mm[Hg] Danny COOK [facility] 10-28-2023 07:54-0500 Heart rate 62 /min Danny COOK [facility] 10-28-2023 07:54-0500 Respiratory rate 16 /min Danny COOK [facility] 10-28-2023 07:54-0500 Systolic blood pressure 137 mm[Hg] Danny COOK [facility] 09-08-2023 13:48-0400 Diastolic blood pressure 85 mm[Hg] Danny Cold Crate [facility] 09-08-2023 13:48-0400 Heart rate 77 /min Danny Cold Crate [facility] 09-08-2023 13:48-0400 Systolic blood pressure 136 mm[Hg] Dnany Cold Crate [facility] 09-11-2021 16:00-0400 Body height 193.04 cm Cirilo Ori Other [facility] Other 09-11-2021 16:00-0400 Body mass index (BMI) [Ratio] 28.6 kg/m2 Cirilo Ori Other [facility] Other 09-11-2021 16:00-0400 Body temperature 96.2 [degF] Cirilo Ori Other [facility] Other 09-11-2021 16:00-0400 Body weight 106.6 kg Cirilo Ori Other [facility] Other 09-11-2021 16:00-0400 Diastolic blood pressure 75 mm[Hg] Cirilo Ori Other [facility] Other 09-11-2021 16:00-0400 Respiratory rate 18 /min Cirilo Ori Other [facility] Other 09-11-2021 16:00-0400 SaO2% (BldA) [Mass fraction] 98 % Cirilo Ori Other [facility] Other 09-11-2021 16:00-0400 Systolic blood pressure 135 mm[Hg] Cirilo Ori Other [facility] Other Encounters Encounter Date Encounter Type Care Provider Facility Start: 03-07-2026 ambulatory Danny HORNER Facility :[facility] Start: 07-03-2025 End: 07-03-2025 ambulatory [facility] Start: 05-15-2025 End: 05-15-2025 ambulatory [facility] Start: 04-26-2025 End: 04-26-2025 Office outpatient visit 25 minutes Patti Thomas DO Work Phone: [facility] Comment on above: Diabetes mellitus wi th nephropathy (HCC) (Primary Dx); Bradycardia; Mixed hyperlipidemia ; Persistent atrial fibrillation (HCC); Stage 3b chronic kidney disease (CMS-HCC); Benign essential hypertension ; Cortical age-related cataract of both eyes; CPAP (continuous positive airway pressure) dependence; Hyperplasia of prostate with lower urinary tract symptoms (LUTS); KUSH on CPAP Start: 04-26-2025 End: 04-26-2025 ambulatory PATTI THOMAS Not Available Start: 04-24-2025 End: 04-24-2025 Clinisync Result Encounter Patti Thomas DO Work Phone: [facility] Unsolicited Start: 04-24-2025 End: 04-24-2025 Clinisync Result Encounter Patti Thomas DO Work Phone: [facility] Start: 04-10-2025 ambulatory [facility] Start: 04-10-2025 End: 04-10-2025 ambulatory [facility] Start: 03-23-2025 End: 03-23-2025 Office outpatient visit 15 minutes Patti D Dunn-Midlothian DO Work Phone: [facility] Comment on above: Pneumonia of left lo wer lobe due to infectious organism (Primary Dx) Start: 03-23-2025 End: 03-23-2025 ambulatory PATTI D DUNN-EMERY Not Available Start: 03-21-2025 End: 03-21-2025 ambulatory [facility] Start: 03-08-2025 End: 03-08-2025 ambulatory Danny HORNER Facility:[facility] Start: 02-22-2025 End: 02-22-2025 Clinisync Result Encounter Patti D Dunn-Midlothian DO Work Phone: [facility] Start: 02-22-2025 End: 02-22-2025 Clinisync Result Encounter Patti D Dunn-Midlothian DO Work Phone: [facility]solic[facility] Start: 02-22-2025 End: 02-22-2025 ambulatory PATTI D DUNN-EMERY Facility:[facility] Start: 02-22-2025 End: 02-22-2025 Patient encounter procedure Danny HORNER [facility] Start: 12-16-2024 End: 12-16-2024 Office outpatient visit 25 minutes Patti D Dunn-Midlothian DO Work Phone: [facility] Comment on above: Mixed hyperlipidemia (CMS/HCC) [...] Not Available Start: 11-22-2024 End: 11-22-2024 ambulatory TEN [facility] Start: 08-09-2024 End: 08-09-2024 Office outpatient visit 25 minutes Patti Thomas DO Work Phone: [facility] Comment on above: Medicare annual [facility] visit, subsequent (Primary Dx); Diabetic glomerulopathy (CMS/HCC); Mixed hyperlipidemia (CMS/HCC); Diabetes mellitus with nephropathy (CMS/HCC); Persistent atrial fibrillation (HCC) (CMS/HCC); Stage 3b chronic kidney disease (HCC) (CMS/HCC); Benign essential hypertension (CMS/HCC); KUSH on CPAP; Need for immunization against influenza; CPAP (continuous positive airway pressure) dependence; Other thrombophilia ([facility]/HCC); ACP (advance care planning) Start: 08-09-2024 End: 08-09-2024 Patient encounter procedure Patti Thomas DO Work Phone: [facility] Start: 08-09-2024 End: 08-09-2024 ambulatory PATTI THOMAS Not Available Start: 03-02-2024 End: 03-02-2024 Patient encounter procedure Danny HORNER [facility] [place] Start: 10-28-2023 End: 10-28-2023 Patient encounter procedure Danny HORNER [facility] [place] Start: 10-14-2023 End: 10-14-2023 Patient encounter procedure Danny HORNER [facility] [place] Start: 10-12-2023 End: 10-12-2023 Patient encounter procedure Danny HORNER [facility] Start: 09-08-2023 End: 09-08-2023 Patient encounter procedure Danny Simon SIRI [facility] [place] Start: 02-02-2023 End: 02-03-2023 ambulatory PATTI GONG Facility:[facility] Start: 07-08-2022 End: 07-09-[address] PATTI GONG Facility:[facility] Start: 05-27-2022 End: 05-28-[address] DOCTOR METZGER Facility:[facility] Start: 02-25-2022 End: 02-26-[address] DOCTOR METZGER Facility:[facility] Start: 02-05-2022 End: 02-05-2022 Patient encounter procedure Danny HORNER [facility] [place] Start: 09-11-2021 End: 09-11-2021 ambulatory Cirilo Ori Other [facility] Other Start: 09-11-2021 Office outpatient vi sit 15 minutes Cirilo Ori [facility] Start: 01-09-2021 End: 01-10-2021 ambulatory TEN ECKERT Facility:[facility] Start: 11-29-2020 End: 11-30-2020 ambulatory PATTI THOMAS Facility:[facility] Start: 11-27-2020 End: 11-28-2020 ambulatory TEN ECKERT Facility:[facility] Procedures Date Procedure Procedure Detail Performing Clinician Start: 04-26-2025 Hemoglobin glycosylated a1c Patti Thomas DO Work Phone: Start: 04-24-2025 XR CHEST 2V Patti Acosta DO Work Phone: Start: 02-22-2025 [facility] MA/CR RATIO Patti Thomas DO Work Phone: Start: 12-16-2024 Hemoglobin glycosylated a1c Patti Thomas DO Work Phone: Start: 08-29-2024 Cyanocobalamin vitamin b-12 Patti Thomas DO Work Phone: Start: 08-29-2024 Lipid panel Patti Acosta DO Work Phone: Start: 06-15-2024 Hemoglobin glycosylated a1c Patti Thomas DO Work Phone: Start: 02-15-2024 Urine albumin quantitative Patti Thomas DO Work Phone: Start: 11-06-2022 Colonoscopy Patti Aguero DO Work Phone: Start: 11-29-2020 Antibody screen PATTI THOMAS Comment on above: Performed By: #### 6 [id number] #### [address] Start: 11-29-2020 ELECTROPHYS MAP 3D ADD-ON PATTI THOMAS Start: 11-29-2020 ELECTROPHYSIOLOGY EVALUATION PATTI THOMAS Start: 11-29-2020 INTRACARDIAC ECG (ICE) PATTI THOMAS Start: 11-29-2020 STIMULATION PACING HEART PATTI THOMAS Start: 11-29-2020 TX ATRIAL FIB PULM VEIN ISOL PATTI THOMAS Start: 07-25-2019 Cystoscopic removal of ureteric stent Danny Cold Crate Start: 07-14-2019 Cysto w/ homium laser [employer] Start: 06-03-2019 Extracorporeal shock wave lithotripsy of calculus of kidney [employer] Start: 05-18-2019 Ureteral stent-place ment set (physical object) [employer] Cystoscopy [employer] excision of skin cancers 1 G mirella HORNER Comment on above: basal and squamos ce ll Tonsillectomy Danny HORNER Plan of Treatment Date Care Activity Detail Author Start: 11-06-2032 Screening for malign ant neoplasm of colon [facility] Start: 09-05-2026 Glaucoma screening Diabetes: R etinopathy Screening [facility] Start: 02-22-2026 Urine screening for protein Diabetes: Urine Protein Screening [facility] Start: 09-01-2025 End: 09-01-2025 Patient encounter procedure 09/01/2025 1:00 PM EDT Office Visit [facility] [address] [place] [phone] Patti Thomas, DO [address] [place] [address] [facility] Start: 08-09-2025 Medicare Annual Wellness (AWV) Medicare Annual Wellness (AWV) [facility] Start: 08-09-2025 Pneumococcal Vaccine : 65+ Years (1 of 2 - PCV) Pneumococcal Vaccine: 65+ Years (1 of 2 - PCV) [facility] Comment on above: Postponed from 10/24 (Patient Refused) Postponed from 10/24 (Patient Refused) Start: 08-04-2025 Screening for malign ant neoplasm of colon FIT-DNA [facility] Start: 07-27-2025 Hemoglobin A1c measurement Diabetes: Hemoglobin A1C [facility] Start: 04-26-2025 End: 04-26-2025 Patient encounter procedure 04/26/2025 11:15 AM EDT Office Visit [facility] [address] [place] [phone] Patti Thomas, DO [address] [place] [address] [facility] Start: 04-23-2025 End: 03-23-2026 XR Chest 2 Views XR chest 2 views Imaging Routine Pneumonia of left lower lobe due to infectious organism Expected: 04/23/2025, Expires: 03/23/2026 [facility] Work Phone: Comment on above: Expected: 04/23/2025 , Expires: 03/23/2026 Start: 04-14-2025 End: 04-14-2025 Patient encounter procedure 04/14/2025 10:45 AM EDT Office Visit [facility] [address] [place] [phone] Patti Thomas, DO [address] [place] [address] [facility] Start: 03-15-2025 Hemoglobin A1c measurement Diabetes: Hemoglobin A1C [facility] Start: 02-14-2025 Urine screening for protein Diabetes: Urine Protein Screening [facility] Start: 01-02-2025 End: 12-16-2025 Microalbumin/Creatinine panel in random Urine Microalbumin / creatinine urine ratio Lab Routine Diabetes mellitus with nephropathy ([facility]) Expected: 01/02/2025, Expires: 12/16/2025 [facility] Work Phone: Comment on above: Expected: 01/02/2025 , Expires: 12/16/2025 Start: 12-16-2024 End: 12-16-2024 Patient encounter procedure 12/16/2024 1:00 PM EST Office Visit [facility] [address] [place] [phone] Patti Thomas, DO [address] [place] [address] [facility] Start: 09-15-2024 Hemoglobin A1c measurement Diabetes: Hemoglobin A1C [facility] Start: 1950 Screening for malign ant neoplasm of colon [facility] Immunizations Immunization Date Immunization Notes Care Provider Fa cility 08-09-2024 Seasonal trivalent influenza vaccine, adjuvanted, preservative free Patti Thomas DO Work Phone: [facility] 07-23-2023 influenza virus vaccine, unspecified formulation Danny Cold Crate [facility] 07-23-2023 Influenza, Seasonal, Quadrivalent, Adjuvanted Patti Dunn-Midlothian DO Work Phone: [facility] 07-25-2022 influenza virus vaccine, unspecified formulation Danny Cold Crate [facility] 07-25-2022 influenza, high dose seasonal, preservative-free Patti Dunn-Midlothian DO Work Phone: [facility] 01-29-2021 SARS-CoV-2 (COVID-19 ) mRNA BNT-162b2 vax [employer] [facility] 01-07-2021 SARS-CoV-2 (COVID-19 ) mRNA BNT-162b2 vax [employer] [facility] 08-03-2020 influenza virus vaccine, unspecified formulation [employer] [facility] 08-03-2020 Seasonal trivalent influenza vaccine, adjuvanted, preservative free Patti Dunn-Midlothian DO Work Phone: [facility] 08-29-2019 influenza virus vaccine, unspecified formulation Danny Cold Crate [facility] 08-29-2019 Seasonal trivalent influenza vaccine, adjuvanted, preservative free Patti Dunn-Midlothian DO Work Phone: [facility] 08-26-2018 influenza virus vaccine, unspecified formulation [employer] [facility] 08-26-2018 Seasonal trivalent influenza vaccine, adjuvanted, preservative free Patti Dunn-Midlothian DO Work Phone: [facility] 10-06-2017 tetanus toxoid, redu laura diphtheria toxoid, and acellular pertussis vaccine, adsorbed Patti Dunn-Midlothian DO Work Phone: [facility] 08-31-2017 influenza, high dose seasonal, preservative-free Patti Dunn-Midlothian DO Work Phone: [facility] 09-01-2016 influenza, injectabl e, quadrivalent, preservative free Patti Dunn-Midlothian DO Work Phone: [facility] 08-30-2015 seasonal influenza, intradermal, preservative free Patti Dunn-Midlothian DO Work Phone: [facility] 10-27-2014 influenza, seasonal, injectable, preservative free Patti Dunn-Midlothian DO Work Phone: [facility] Payers Date Payer Category Payer Unknown [id number] 2022 Private Health Insurance [facility] [place] [address] [id number] 5 2015 Medicare [id number] 5 1959 Medicare [id number] 1959 Unknown [id number] 1950 Unknown [id number] [id number] .2.647 1950 Unknown [id number] 2.16.840.1.435923.3.579 .2.647 1950 Unknown [id number] 2.16.840.1.001514.3.579 .2.647 1950 Unknown [id number] 2.16.840.1.811998.3.579 .2.593 1950 Unknown [id number] 2.16.840.1.005764.3.579 .2.593 1950 Unknown [id number] 2.16.840.1.880884.3.579 .2.593 1950 Unknown [id number] 2.16.840.1.940634.3.579 .2.593 1950 Unknown [id number] 2.16.840.1.319970.3.579 .2.727 1950 Unknown [id number] 2.16.840.1.832990.3.579 .2.727 1950 Unknown [id number] 2.16.840.1.387689.3.579 .2.727 1950 Unknown [id number] 2.16.840.1.418610.3.579 .2.727 1950 Unknown [id number] 2.16.840.1.334123.3.579 .2.1259 1950 Unknown [id number] 2.16.840.1.609081.3.579 .2.1259 1950 Unknown [id number] 2.16.840.1.934416.3.579 .2.1259 1950 Unknown [id number] [id number] .2.1259 Unknown [id number] Social History Date Type Detail Facility Start: 02-05-2022 End: 07-22-2023 Tobacco smoking status Never smoked tobacco (finding) [facility] Tobacco smoking status Never [facility] Start: 08-02-2024 End: 09-12-2024 Sex Assigned At Male [facility] [employer] Other Start: 07-22-2023 Tobacco use and exposure Smokeless tobacco non-user [facility] Start: 09-12-2024 End: 05-07-2025 Alcoholic beverage intake Ex-drinker (finding) [facility] Start: 08-02-2024 End: 09-12-2024 History of Social function [facility] Start: 1950 Sex assigned at Not on file N [facility] Sexual Orientation [facility] Start: 05-09-2019 Sex Male (finding) [facility] Functional Status Date Assessment Result Facility 03-02-2024 Functional Status N/A [facility] 10-28-2023 Functional Status N/A [facility] 10-02-2023 Functional Status N/A [facility] 09-08-2023 Functional Status N/A [facility] [place] Clinical Notes 09-11-2021 to 07-03-2025 Patti Thomas, DO - 05/07/2025 5:02 PM EDTSandra Franko Thomas, DO - 05/07/2025 5:01 PM EDTSkaitlyn Thomas, DO - 05/07/2025 5:01 PM EDTSkaitlyn Thomas, DO - 05/07/2025 5:00 PM EDT Note Date & Type Note Facility 07-03-2025 Note SUBJECTIVE Reason for Visit: Aline Tomlin is a 74 y.o. year old male patient being seen for follow-up visit. HPI: Aline Tomlin is a 74 y.o. [...] bit of yard work, keeping up with his landscaping. He requires a few breaks, but otherwise his SOB remains stable. He was noted to have a skin rash after starting spironolactone. He was due [...] here today for a follow up from [facility] ER. Patient states he was in the ER for pneumonia int he LLL, while in the ER patient was told he was back in A-Fib. Patient has no cardiac complaints. Patient has [...] mg tablet fosinopril 40 mg tablet TAKE ON (more content not included)... [facility] 05-15-2025 Note SUBJECTIVE Reason for Visit: Aline Tomlin is a 74 y.o. year old male patient being seen for follow-up visit status post direct cardioversion. HPI: Aline Tomlin is a 74 y.o. [...] here today for a follow up from [facility] ER. Patient states he was in the ER for pneumonia int he LLL, while in the ER patient was told he was back in A-Fib. Patient has no cardiac complaints. Patient has [...] THREE TIMES A DAY simvastatin (Zocor) 40 (more content not included)... [facility] 05-07-2025 History of Present illness Narrative Associated Problem(s): Cortical age-related cataract of both eyes He continues to follow with Ophthal and these are being monitored Associated Problem(s): Benign essential hypertension I have reinforced importance of lifestyle modifications (healthy diet choices, regular exercise and weight management) for [facility] control of blood pressure. Pt is aware of the increased risk of complications ( for example: stroke, heart failure, heart attack, kidney damage or ) when BP not adequately controlled. -Based on review of medications and current medical status; continuation of medications most appropriate. -Will continue to monitor on current rx Associated Problem(s): Stage 3b chronic kidney disease (CMS-HCC) -Will continue to monitor the renal function for any significant decline in eGFR. We will continue to work to optimally control any underlying conditions (DM and/or hypertension specifically) that are associated with worsening effects on kidney function and I will adjust medications as needed due to any changes in the kidney function. Associated Problem(s): Persistent atrial fibrillation (HCC) At this time, he seems to to have maintained NSR (since the cardioversion) based on auscultation. Anticoagulation is being tolerated without any evidence of significant adverse effect. Will continue current regimen and monitoring. Associated Problem(s): Mixed hyperlipidemia -The importance of dietary modification, regular cardiovascular activity and compliance with any prescribed medication for joint terminal attack controller management/control of lipids has been discussed. Since high cholesterol (especially LDL) is associated with an elevated risk of cardiovascular disease, which includes coronary artery disease, stroke and peripheral vascular disease, and has also been linked to diabetes and high blood pressure risks, by appropriately treating LDL, these risks can be reduced. Associated Problem(s): Diabetes mellitus with nephropathy (HCC) His glucose control remains stable. -I have reinforced the importance of dietary modification, routine exercise and weight control for [facility] DM management and reduction in risk for [...] for a routine four month follow up. Lab results from 03/2025 and 02/2025 are documented in EHR for reference. Care gaps indicate recommendation for an HbA1c and staff will obtain this in office today. -He is also due for a diabetic eye exam. He reported at his last routine visit that he was scheduled to see the eye Dr [facility] on 09/05/24 and there is no documentation of this, will confirm if he had it done. He is accompanied by his and she reports that pt had his eye exam done at [facility] back in August, staff will call for the report. Since last appt: -He had cardioversion done per Dr. Eckert on 04/10/25. Per Dr. Eckert's note pt converted to sinus rhythm and advised to continue anticoagulation (Eliquis). -He went to ER 04/18/2025 with c/o 4 days of constipation. He had called the office the day prior and was advised to start using Miralax. He reported that he had been hydrating well and eating fiber. He only took 1 dose of the Miralax. He and his report that he is now taking dulcolax 5mg daily per the ER Dr recommendation. He reports that he will see Dr. Eckert on 05/15/25 for follow up and is going to discuss with him that he feels the amiodarone he takes is causing the constipation. Diabetes Management -DM was diagnosed several years ago -Associated complications: CKD 3, Hx of Diabetic Retinopathy -Current Medications: Metformin, Fosinopril, Simvastatin. Jardiance added ~04/2024 and metformin decreased to daily. -Currently reports doing FSBG checks once a day and readings rangins -Previous A1c completed: in 12/2024 = 7.3% -Most recent A1c: in 04/2025 = 7.2% (stable) -Last ABDULLAHI: 02/2025 -Last lipids: 08/2024 -Last DM eye exam completed: 09/05/2024 (seen by Dr Mcclain at [facility] [place]) -Findings on eye exam: No evidence of DRLashell Asymptomatic cataracts. -He sees [facility]ry [facility]- last appt Current Outpatient Medications Medication Instructions amiodarone (PACERONE) 200 mg, 2 times daily amLODIPine (NORVASC) 10 mg, Oral, Daily bisacodyl (DULCOLAX) 5 mg, Daily PRN cloNIDine (CATAPRES) 0.2 mg, 2 times daily [...] Active Problem List Diagnosis Benign essential hypertension Cortical age-related cataract of both eyes KUSH on CPAP Diabetes mellitus with nephropathy (HCC) Diverticulosis Hyperplasia of prostate with lower urinary tract symptoms (LUTS) Gastroesophageal reflux disease with esophagitis without hemorrhage Mixed hyperlipidemia Persistent atrial fibrillation (HCC) Sensorineural hearing loss, bilateral Stage 3b chronic kidney disease (CMS-HCC) CPAP (continuous positive airway pressure) dependence Dermatitis Knee joint stiffness, bilateral Social History Tobacco Use Smoking status: Never Smokeless tobacco: Never Substance Use Topics Alcohol use: Not Currently Drug use: Never Review of Systems Constitutional: Negative for appetite change, chills, fatigue and fever. HENT: Negative for ear pain, hearing loss, nosebleeds, trouble swallowing and voice change. Cardiovascular: See HPI Gastrointestinal: Positive for constipation. Negative for abdominal pain, blood in stool, diarrhea, nausea and vomiting. -Seen in ER 04/2025 for constipation. He is now taking dulcolax daily and that is helping. Genitourinary: Positive for difficulty urinating and hematuria. [...] polyphagia and polyuria. Objective Vital signs: BP 124/72 Pulse (!) 45 Wt 231 lb SpO2 98% BMI 27.39 kg/m Recent Results (from the past 12 weeks) [facility] [place] MA/CR RATIO Collection Time: 02/22/25 9:40 AM Result Value Ref Range [facility] [place] ALBUMIN:MCNC:PT:URINE:QN:DETECTION LIMIT <= 20 MG/L 0.8 0.0 - 1.9 mg/dL U CREATININE 38.1 mg/dL ALBUMIN/CREATININE:MRTO:PT:URINE:Q N:DETECTION LIMIT <= 20 MG/L 21.0 0.0 - 30.0 mg/gm Cr POCT Glycated hemoglobin, total Collection Time: 04/26/25 11:38 AM Result Value Ref Range Hemoglobin A1C 7.2 Physical Exam Constitutional: General: He is not in acute distress. Appearance: Normal appearance. HENT: Head: Normocephalic. Ears: Comments: He has bilateral hearing aids Eyes: General: No scleral icterus. Extraocular Movements: Extraocular movements intact. Conjunctiva/sclera: Conjunctivae normal. Neck: Vascular: No carotid bruit. Cardiovascular: Rate and Rhythm: Normal rate. Rhythm irregular. Heart sounds: No murmur heard. Pulmonary: Effort: Pulmonary effort is normal. No respiratory distress. Breath sounds: No wheezing or rhonchi. Comments: Slightly coarser breathsounds LLL Musculoskeletal: General: Swelling present. Normal range of [...] Addressed This Visit Diabetes mellitus with nephropathy (HCC) - Primary Overview Prescribed Metformin 03/2024- [facility] Current Assessment & Plan His glucose control remains stable. -I have reinforced the importance of dietary modification, routine exercise and weight control for [facility] DM management and reduction in risk for [...] and ways to achieve this goals discussed. Relevant Orders POCT Glycated hemoglobin, total (Completed) Mixed hyperlipidemia Overview Prescribed simvastatin 40 mg daily 07/2023- TC-138; TG-38, HDL-44, LDL- 86 --- 08/2024: could be an interaction between the amlodipine and simvastatin, but he has been on both these at current doses and there has not been any issue. Will continue to monitor for now. He reports he will be having labs soon at [facility], so if LDL happens to be <50, would consider decrease in dose or simvastatin, but if LDL not at goal will change to a different statin rather than increase dose ---- 08/2024 LDL=91 Current Assessment & Plan -The importance of dietary modification, regular cardiovascular activity and compliance with any prescribed medication for chcf management/control of lipids has been discussed. Since high cholesterol (especially LDL) is associated with an elevated risk of cardiovascular disease, which includes coronary artery disease, stroke and peripheral vascular disease, and has also been linked to diabetes and high blood pressure risks, by appropriately treating LDL, these risks can be reduced. Persistent atrial fibrillation (HCC) Overview Prescribed Eliquis and metoprolol 03/2025:Dr Eckert recently started him on amiodarone 200mg bid x 14 days and then 100mg daily. He is scheduled to have a cardioversion done on 04/10/202504/2025- Cardioversion was successful Current Assessment & Plan At this time, he seems to to have maintained NSR (since the cardioversion) based on auscultation. Anticoagulation is being tolerated without any evidence of significant adverse effect. Will continue current regimen and monitoring. Stage 3b chronic kidney disease ([facility]) Overview Added Jardiance 03/2024 for renal protective benefits Current Assessment & Plan -Will continue to monitor the renal function for any significant decline in eGFR. We will continue to work to optimally control any underlying conditions (DM and/or hypertension specifically) that are associated with worsening effects on kidney function and I will adjust medications as needed due to any changes in the kidney function. Benign essential hypertension Overview Prescribed amlodipine, fosinopril and metoprolol Current Assessment & Plan I have reinforced importance of lifestyle modifications (healthy diet choices, regular exercise and weight management) for [facility] control of blood pressure. Pt is aware of the increased risk of complications ( for example: stroke, heart failure, heart attack, kidney damage or ) when BP not adequately controlled. -Based on review of medications and current medical status; continuation of medications most appropriate. -Will continue to monitor on current rx Cortical age-related cataract of both eyes Overview asymptomatic Current Assessment & Plan He continues to follow with Ophthal and these are being monitored KUSH on CPAP Overview -Since untreated sleep [...] and quitting smoking can be helpful for [place] management. But the most effective treatment is continuous positive airway pressure. So it is important to be compliant with prescribed treatment Hyperplasia of prostate with lower urinary tract symptoms (LUTS) Overview He had procedure (Rezum) with Urology ~09/2023 CPAP (continuous positive airway pressure) dependence Overview He reports he is using nightly and continues to have good response Other Visit Diagnoses Bradycardia Likley d/t meds (metoprolol and amiodarone). He has upcoming appt with Cardiology, so may be able to decrease amio dose Health Maintenance Topic Date Due Pneumococcal Vaccine: 65+ Years (1 of 2 - PCV) 08/09/2025 (Originally 1969) Diabetes: Hemoglobin A1C 07/27/2025 Medicare Annual Wellness (AWV) 08/09/2025 Diabetes: Urine Protein Screening 02/22/2026 Diabetes: Retinopathy Screening 09/05/2026 Colorectal Cancer Screening [...] Vaccination 01/07/2021, 01/29/2021 Tdap 10/06/2017 I spent at least 30 minutes on the date of the service which included: time spent preparing to see the patient by reviewing last office note (mine and specialists) and chronic conditions, talking to the patient/documenting [...] -Follow up in about 4 months (around 08/26/2025) for MW with MANAGER STRATEGIC SOURCING and routine appt with me; sooner of any acute issues. Patti Thomas D.O. Board Certified Assistant Boys Track Coach documented in this encounter [facility] 04-10-2025 Note DIRECT CARDIOVERSION PROCEDURE NOTE Date: 04/10/2025. Type [...] consider ablation. Ten Eckert MD Cardiac Electrophysiology [facility] 04-10-2025 Note Patient: Rhys Jarquin er Procedure Information Date/Time: 04/10/25 0830 Procedure: Cardioversion - PC APPROVED Location: [facility] DENTAL LABORATORY TECHNICIAN HOLDING ROOM / [facility] VASCULAR LAB (Cath) Providers: Ten Eckert MD Clinical information reviewed: Allergies Meds Physical Exam Airway Mallampati: II TM distance: >3 FB Neck ROM: full Cardiovascular Dental Pulmonary Abdominal Anesthesia Plan ASA 3 CSE Anesthetic plan and risks discussed with patient. Use of blood products discussed with patient who. Additional Equipment Requests [facility] 03-23-2025 History of Present illness Narrative Images from the original note were not included. Subjective Patient ID: Aline Tomlin (: 1950) is a 74 y.o. male who presents for ER Follow-up. HPI : Aline is being seen today for an ER follow up. He presented to the [facility] ER on 03/18/25 with complaints of weakness, chills and sweats. He has work up and it is determined that he is in a-fib and chest xray showing LLL infiltrate. He is given rocephin in the ER and sent home with oral zithromax. He has a follow up visit with his aerial sprayer, Dr. Eckert, on 03/21/25. Dr. Eckert notes pt.'s EKG shows him to be in a-fib. Plans to do a cardioversion in the near future is mentioned. ----- He is accompanied by his and she reports that Dr Eckert started him on amiodarone 200mg bid x 14 days and then 100mg daily thereafter. He is scheduled to have a cardioversion done on April 10 and instructed to go to the hospital a couple of days before the procedure to have an EKG done. If the EKG is normal Dr Eckert will cancel the cardioversion. He was given rx for oral zpak and he finished that yesterday and he is also taking cefuroxime 500mg bid x 10 days. He has about another week of the oral atx. He reports that he is feeling better and the harsh cough is improving. Current Outpatient Medications Medication Instructions amiodarone (PACERONE) 200 mg, 2 times daily amLODIPine (NORVASC) 10 mg, Oral, Daily cloNIDine [...] loss, nosebleeds, trouble swallowing and voice change. Cardiovascular: See HPI Gastrointestinal: Negative for abdominal pain, blood in [...] polyphagia and polyuria. Objective Vital signs: BP 138/72 Pulse 63 Wt 241 lb 6.4 oz SpO2 99% BMI 28.63 kg/m Physical Exam Constitutional: General: He is not in acute distress. Appearance: Normal appearance. HENT: Head: Normocephalic. Ears: Comments: He has bilateral hearing aids Eyes: General: No scleral icterus. Extraocular Movements: Extraocular movements intact. Conjunctiva/sclera: Conjunctivae normal. Neck: Vascular: No carotid bruit. Cardiovascular: Rate and Rhythm: Normal rate. Rhythm irregular. Heart sounds: No murmur heard. Pulmonary: Effort: Pulmonary effort is normal. No respiratory distress. Breath sounds: No wheezing or rhonchi. Comments: Slightly coarser breathsounds LLL Musculoskeletal: General: Swelling present. Normal range of [...] Assessment/Plan Problem List Items Addressed This Visit None Visit Diagnoses Pneumonia of left lower lobe due to infectious organism - Primary sx improving. Will complete ATX. Repeat CXR in 4 weeks to ensure resolution of the infiltrate. Call if sx worsen again Relevant Orders XR chest 2 views Health Maintenance Topic Date Due Diabetes: Hemoglobin A1C 03/15/2025 Pneumococcal Vaccine: 65+ Years (1 of 2 - PCV) 08/09/2025 (Originally 1969) Medicare Annual Wellness (AWV) 08/09/2025 Diabetes: Urine Protein Screening 02/22/2026 Diabetes: Retinopathy Screening 09/05/2026 Colorectal Cancer Screening [...] Tdap 10/06/2017 I spent a total of 20 minutes on the date of the service [...] time of the patient encounter. -Follow up for appt moved from 04/14/2025 to 04/26/2025 so he can get the F/U CXR PTV. Patti Thomas D.O. Board Certified Assistant Boys Track Coach documented in this encounter [facility] 03-21-2025 Note [place] Cardiology Consul t Note Reason for visit: s/p PVI 03/21/25 Patient is here today for a follow up from [facility] ER. Patient states he was in the ER for pneumonia int he LLL, while in the ER patient was told he was back in A-Fib. Patient has no cardiac complaints. Patient has [...] on flecainide ----- Previous HPI per Joel MANAGER STRATEGIC SOURCING 04/22/2022: 71 yo male PMH of HTN, [...] visually. Leftventricular wall thickness is normal. No regiona (more content not included)... [facility] 03-08-2025 Note Patient Education Oncology Prostate Cancer [...] Where to find more information ??? [employer] [place] [employer]: www.cancer.org ??? [place] [employer]: www.auanet.org Contact a health care [...] The prostate gland (more content not included)... [facility] 12-16-2024 History of Present illness Narrative Associated [...] atrial fibrillation (HCC) (CMS/HCC) He saw his Coin Machine Supervisor recently. -At this time, rate is adequately controlled on current medications. Anticoagulation is being tolerated without any evidence of significant adverse effect. Will continue current regimen and monitor. Associated Problem(s): Diabetes mellitus with nephropathy (CMS/HCC) -He admits that he has been celebrating quite a bit the last couple months (including his and Aida's 50 anniversary). He reports he started making more [...] to achieve this goals discussed. ---he needs BADULLAHI. Order provided and he can do with upcoming labs for Urologist Associated Problem(s): Mixed hyperlipidemia (CMS/HCC) -The importance of dietary modification, regular cardiovascular activity and compliance with any prescribed medication for chcf management/control of lipids has been discussed. Since [...] DR -He sees Podiatry (Kalpesh) at [facility]- last appt 12/12/2024 Current Outpatient Medications Medication [...] Addressed This Visit Diabetes mellitus with nephropathy (CMS/HCC) Overview Prescribed Metformin 03/2024- will add jardiance (which he can get through the [facility]) Current Assessment & Plan -He admits that he has been celebrating quite a bit the last couple months (including his and Aida's 50th wedding anniversary). He reports he started [...] Microalbumin / creatinine urine ratio Mixed hyperlipidemia (CMS/HCC) - Primary Overview Prescribed simvastatin 40 mg daily 07/2023- TC-138; TG-38, HDL-44, LDL- 86 --- 08/2024: could be an interaction between the amlodipine and simvastatin, but he has been on both these at current doses and there has not been any issue. Will continue to monitor for now. He reports he will be having labs soon at [facility], so if LDL happens to be <50, would consider decrease in dose or simvastatin, but if LDL not at goal will change to a different statin rather than increase dose ---- 08/2024 LDL=91 Current Assessment & Plan -The importance of dietary modification, regular cardiovascular activity and compliance with any prescribed medication for chcf management/control of lipids has been discussed. Since high cholesterol (especially LDL) is associated with an elevated risk of cardiovascular disease, which includes coronary artery disease, stroke and peripheral vascular disease, and has also been linked to diabetes and high blood pressure risks, by appropriately treating LDL, these risks can be reduced. Persistent atrial fibrillation (HCC) ([facility]) Overview Prescribed Eliquis and metoprolol Current Assessment & Plan He saw his Coin Machine Supervisor recently. -At this time, rate is adequately controlled on current medications. Anticoagulation is being tolerated without any evidence of significant adverse effect. Will continue current regimen and monitor. Stage 3b chronic kidney disease (HCC) ([facility]) Overview Adding Jardiance 03/2024 Current Assessment & [...] in your kidney function. Benign essential hypertension ([facility]) Overview Prescribed amlodipine, fosinopril and metoprolol Current [...] and quitting smoking can be helpful for [place] [facility] management. But the most effective treatment is [...] chronic conditions. Patti Thomas D.O. Board Certified Assistant Boys Track Coach documented in this encounter [facility] 11-22-2024 Note [place] [facility] Consul t Note Reason [...] on flecainide ----- Previous HPI per Joel MANAGER STRATEGIC SOURCING 04/22/2022: 71 yo male PMH of HTN, [...] rhythm Of no (more content not included)... [facility] 08-09-2024 History of Present illness Narrative [...] today for an annual MW with the MANAGER STRATEGIC SOURCING and a routine four month follow up. [...] of DR -He sees Podiatry at the [facility]- last appt 03/15/2024 Current Outpatient Medications Medication Instructions amLODIPine (NORVASC) 10 mg, Oral, Daily cloNIDine (CATAPRES) 0.1 mg, Oral, 2 times daily Eliquis 5 mg, Oral, 2 times daily empagliflozin (Jardiance) 25 MG 0.5 tablets, Oral, Daily, Rx'd by [facility] fosinopril (Monopril) 40 MG tablet TAKE ONE TABLET BY MOUTH DAILY FOR 90 DAYS metFORMIN (GLUCOPHAGE) 500 mg, Oral, Daily, Dose decreased per [facility] metoprolol succinate XL (Toprol-XL) 50 MG 24 [...] bilateral Chronic kidney disease, stage 3 (HCC) ([facility]) Diabetes mellitus with nephropathy ([facility]) Essential hypertension, benign ([facility]) GERD (gastroesophageal reflux disease) History of atrial fibrillation 2019 Hx cardioversions. 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 But the most effective treatment is continuous positive airway pressure. So it is important to be compliant with prescribed treatment Diabetes mellitus with nephropathy ([facility]) Overview Prescribed Metformin 03/2024- will add jardiance [...] to achieve this goals discussed. Mixed hyperlipidemia ([facility]) Overview Prescribed simvastatin 40 mg daily 07/2023- TC-138; TG-38, HDL-44, LDL- 86 --- 08/2024: could be an interaction between the amlodipine and simvastatin, but he has been on both these at current doses and there has not been any issue. Will continue to monitor for now. He reports he will be having labs soon at [facility], so if LDL happens to be <50, would consider decrease in dose or simvastatin, but if LDL not at goal will change to a different statin rather than increase dose Persistent atrial fibrillation (HCC) ([facility]) Overview Prescribed Eliquis and metoprolol Current Assessment & Plan Rate is adequately controlled on current medications. Anticoagulation is being tolerated without any evidence of significant adverse effect. Will continue current regimen and monitor. Stage 3b chronic kidney disease (HCC) ([facility]) Overview Adding Jardiance 03/2024 Current Assessment & [...] provided with the care plan. Diabetic glomerulopathy ([facility]) Relevant Medications metFORMIN (Glucophage) 500 MG tablet Need for immunization against influenza Relevant Orders Flu vaccine, trivalent, adjuvanted, preservative free (Completed) Other thrombophilia ([facility]) ACP (advance care planning) Discussed LW/POA with [...] Influenza, trivalent, adjuvanted 08/26/2018, 08/29/2019, 08/03/2020, 08/09/2024 Keynoir Purple Cap SARS-CoV-2 Vaccination 01/07/2021, 01/29/2021 Tdap [...] by one of our Advanced Care Practitioner (MANAGER STRATEGIC SOURCING/PA) for the Medicare Wellness portion of this [...] up visit. Priscilla Gardner NP Board Certified Assistant Boys Track Coach documented in this encounter [facility] 08-09-2024 Instructions Patti Thomas DO - 08/09/2024 1:30 PM EDT There could be an interaction between the amlodipine and simvastatin, but he has been on both these at current doses and there has not been any issue. Will continue to monitor for now. He reports he will be having labs soon at [facility], so if LDL happens to be <50, would consider decrease in dose or simvastatin, but if LDL not at goal will change to a different statin rather than increase dose documented in this encounter [facility] 03-02-2024 Hospital Discharge instructions Patient Education [...] urethra. Follow these instructions at home: Take ilxy-kym-qrdkruu and prescription medicines only as told by [...] provider. Document Revised: 05/14/2022 Document Reviewed: 05/14/2022 [employer] Patient Education 2022 Modernizing Medicine. Follow Up Care 10/28/2023 08:26:21 With:SIRI COLORADO, Danny Simon, URL Address: [address] [place] [address] When: Unknown [facility] 10-28-2023 Hospital Discharge instructions Patient Education 10/28/2023 [...] urethra. Follow these instructions at home: Take ajxt-ngd-hdnzjdi and prescription medicines only as told by [...] provider. Document Revised: 05/14/2022 Document Reviewed: 05/14/2022 Else[employer] Patient Education 2022 Modernizing Medicine. Follow Up Care 10/14/2023 11:06:19 With:SIRI COLORADO, Danny Simon, KEERTHI Address: [address] [place] [id number]- When: Unknown [facility] 10-12-2023 Hospital Discharge instructions Patient Education [...] cotton underwear to absorb moisture and keep pulp drier. 6. Keep the drainage bag below [...] Up Care 09/08/2023 14:49:27 With:Danny HORNER Address: [address] [place], [place] [id number]- [facility] (1) When:1 week Comments:Call for followup appointment next week. Push fluids to keep the urine clear. The plan will be for you to stay off of your Eliquis until seen in the office but if you are having no bleeding even by Thursday of this week, please give the office a call. We may restart your Eliquis sooner. [facility] 09-08-2023 Hospital Discharge instructions Patient Education [...] urethra. Follow these instructions at home: Take bkhe-gfh-wzzgdro and prescription medicines only as told by [...] provider. Document Revised: 05/14/2022 Document Reviewed: 05/14/2022 [employer] Patient Education 2022 Modernizing Medicine. Follow Up Care 08/12/2023 12:59:54 With:SIRI COLORADO, Danny Simon, URL Address: [facility] [place] [id number]- When: Unknown Comments:Taqueria Carrion [facility] 02-05-2022 Hospital Discharge instructions Patient Education 02/05/2022 [...] urethra. Follow these instructions at home: Take bszk-fsi-mwegjaz and prescription medicines only as told by [...] 10/26/2006 Document Revised: 09/20/2019 Document Reviewed: 11/30/2017 [employer] Patient Education 2020 Modernizing Medicine. 02/05/2022 13:20:05 Calorie Counting for Weight Loss [...] 10/26/2006 Document Revised: 07/15/2019 Document Reviewed: 09/25/2017 [employer] Patient Education 2020 Modernizing Medicine. Follow Up Care 01/23/2021 13:38:37 With:SIRI COLORADO, Danny Simon, URL Address: When:Within 1 Year(s) Comments:w/PSA & KUB [facility] 09-11-2021 Evaluation note Encounter Date Diagnosis [...] control to surround the progression of CKD. Flimmer Other Evaluation + Plan note Future Appointments Appointment Date:02/11/2023 11:15:00 AM Scheduled Provider:Danny HORNER MD Location:[facility] Appointment Type:URO Office Visit Diagnostic Tests Pending * PSA Free & Total 02/05/[address] [facility] Evaluation + Plan note Future Appointments Appointment Date:10/12/2023 02:00:00 PM Scheduled Provider: Location:[facility] Appointment Type:Urology FT Appointment Date:01/12/2024 09:45:00 AM Scheduled Provider:Danny HORNER MD Location:[facility] [place] Appointment Type:URO Office Visit [facility] Evaluation + Plan note Future Appointments Appointment Date:10/14/2023 10:30:00 AM Scheduled Provider: Location:[facility] Appointment Type:URO Nurse Visit Appointment Date:01/12/2024 09:45:00 AM Scheduled Provider:Danny HORNER MD Location:[facility] App[facility] Plan note Future Appointments Appointment Date:10/28/2023 08:00:00 AM Scheduled Provider:Danny HORNER MD Location:[facility] Appointment Type:URO Office Visit Appointment Date:01/12/2024 09:45:00 AM Scheduled Provider:Danny HORNER MD Location:[facility] Appointment Type:URO Office Visit [facility] Evaluation + Plan note Future Appointments Appointment Date:03/02/2024 09:15:00 AM Scheduled Provider:Danny HORNER MD Location:[facility] Appointment Type:URO Office Visit [facility] Evaluation + Plan note Future Appointments Appointment Date:03/08/2025 09:30:00 AM Scheduled Provider:Danny HORNER MD Location:[facility] Appointment Type:URO Office Visit Diagnostic Tests Pending * PSA Free & Total 07/10/24 [facility] Evaluation + Plan note Future Appointments Appointment Date:03/08/2025 09:30:00 AM Scheduled Provider:Danny HORNER MD Location:[facility] Appointment Type:URO Office Visit [facility] evaluation note* Diagnosis Medicare annual wellness visit, [...] (CMS/HCC) Essential hypertension, benign KUSH on CPAP CPAP (continuous positive airway pressure) dependence Dependence on other enabling machine Sensorineural hearing loss, bilateral [facility] [...] Dependence on other enabling machine Other thrombophilia ACP (advance care planning) Other specified counseling Mixed hyperlipidemia (CMS/HCC)- Primary Mixed hyperlipidemia Gastroesophageal reflux disease with esophagitis without hemorrhage Diabetes mellitus with nephropathy (CMS/HCC) Persistent atrial fibrillation (HCC) (CMS/HCC) Atrial fibrillation Stage 3b chronic kidney disease (HCC) (CMS/HCC) Benign essential hypertension (CMS/HCC) Essential hypertension, benign KUSH on CPAP CPAP (continuous positive airway pressure) dependence Dependence on other enabling machine Sensorineural hearing loss, bilateral Pneumonia of left lower lobe due to infectious organism- Primary documented in [facility] encounter [facility]* Diagnosis Medicare annual wellness visit, subsequent- Primary ACP (advance care planning) Other specified counseling Need for immunization against influenza Need for prophylactic vaccination and inoculation against influenza Benign essential hypertension Essential hypertension, benign Mixed hyperlipidemia Mixed hyperlipidemia Stage 3b chronic kidney disease (CMS-HCC) Persistent atrial fibrillation (HCC) Atrial fibrillation Diabetes mellitus with nephropathy (HCC) KUSH on CPAP Hyperplasia of prostate with lower urinary tract symptoms (LUTS) Unspecified hyperplasia of prostate with urinary obstruction and other lower urinary tract symptoms (LUTS) Diabetes mellitus with nephropathy (HCC)- Primary Benign essential hypertension Essential hypertension, benign Stage 3b chronic kidney disease (CMS-HCC) Persistent atrial fibrillation (HCC) Atrial fibrillation Mixed hyperlipidemia Mixed hyperlipidemia KUSH on CPAP CPAP (continuous positive airway pressure) dependence Dependence on other enabling machine Gastroesophageal reflux disease with esophagitis without hemorrhage Cortical age-related cataract of both eyes Mixed hyperlipidemia- Primary Mixed hyperlipidemia Gastroesophageal reflux disease with esophagitis without hemorrhage Diabetes mellitus with nephropathy (HCC) Dermatitis Contact dermatitis and other eczema, due to unspecified cause Persistent atrial fibrillation (HCC) Atrial fibrillation Stage 3b chronic kidney disease (CMS-HCC) Benign essential hypertension Essential hypertension, benign CPAP (continuous positive airway pressure) dependence Dependence on other enabling machine KUSH on CPAP Secondary hyperparathyroidism of renal origin (HCC) Secondary hyperparathyroidism (of renal origin) Atherosclerosis of aorta Medicare annual wellness visit, subsequent- Primary Diabetic glomerulopathy (HCC) Type II or unspecified type diabetes mellitus with renal manifestations, not stated as uncontrolled Mixed hyperlipidemia Mixed hyperlipidemia Diabetes mellitus with nephropathy (HCC) Persistent atrial fibrillation (HCC) Atrial fibrillation Stage 3b chronic kidney disease (CMS-HCC) Benign essential hypertension Essential hypertension, benign KUSH on CPAP Need for immunization against influenza Need for prophylactic vaccination and inoculation against influenza CPAP (continuous positive airway pressure) dependence Dependence on other enabling machine Other thrombophilia (HHS-HCC) ACP (advance care planning) Other specified counseling Mixed hyperlipidemia- Primary Mixed hyperlipidemia Gastroesophageal reflux disease with esophagitis without hemorrhage Diabetes mellitus with nephropathy (HCC) Persistent atrial fibrillation (HCC) Atrial fibrillation Stage 3b chronic kidney disease (CMS-HCC) Benign essential hypertension Essential hypertension, benign KUSH on CPAP CPAP (continuous positive airway pressure) dependence Dependence on other enabling machine Sensorineural hearing loss, bilateral Diabetes mellitus with nephropathy (HCC)- Primary Bradycardia Other specified cardiac dysrhythmias Mixed hyperlipidemia Mixed hyperlipidemia Persistent atrial fibrillation (HCC) Atrial fibrillation Stage 3b chronic kidney disease (CMS-HCC) Benign essential hypertension Essential hypertension, benign Cortical age-related cataract of both eyes CPAP (continuous positive airway pressure) dependence Dependence on other enabling machine Hyperplasia of prostate with lower urinary tract symptoms (LUTS) Unspecified hyperplasia of prostate with urinary obstruction and other lower urinary tract symptoms (LUTS) KUSH on CPAP [facility] [...] 0 Hospitalization History A-FIB WITH EPS 1 [place] Other Hospital course Narrative No data available for this section [facility] Hospital Discharge instructions No data available for this section [facility] Progress note No data available for this section [facility] [place] Summary Purpose Family History No Family History [...] section and content) DATE CREATED AUTHOR 09/16/2019 [facility] DATE CREATED AUTHOR AUTHOR'S ORGANIZ ATION 11/17/2021 [facility] DATE CREATED AUTHOR AUTHOR'S ORGANIZ ATION 02/05/2023 [facility] DATE CREATED AUTHOR AUTHOR'S ORGANIZ ATION 03/06/2025 [place] [facility] DATE CREATED AUTHOR AUTHOR'S ORGANIZ ATION 03/09/2025 [place] [facility] DATE CREATED AUTHOR AUTHOR'S ORGANIZ ATION 05/01/2025 [facility] DATE CREATED AUTHOR AUTHOR'S ORGANIZ ATION 07/04/2025 [facility] REASON FOR VISIT (unrecogniz ed section and content) Reason Comments Medicare Annual Wellness Visit Subsequen t Routine 6 Mo Follow Up Reason Comments Routine 4 Mo Follow Up Reason Comments ER Follow-up Patient Care team informatio n (unrecognized section and content) Ssn/Ssbn Assistant Navigator Relationship Specialty Start Date End Date Patti Thomas DO [address] [place] [address] PCP - ACO Reach 04/02/23 Patti Thomas DO [address] [place] [address] PCP - General Internal Medicine 07/23/23 Tri Watt MD [address] [address] Referring Physician Dermatology 07/22/23 Zhang Kessler MD [address] [place] [address] Referring Physician Ophthalmology 07/22/23 Danny Horner MD [address] [place] [address] Referring Physician Urology 07/22/23 Ten Eckert MD [address] [facility] [address] [place] [address] Referring Physician Cardiac Electrophysiology 07/22/23 Ssn/Ssbn Assistant Navigator Relationship Specialty Start Date End Date Patti Thomas DO [address] [address] PCP - ACO Reach 04/02/23 Patti Thomas DO [address] [address] PCP - General Internal Medicine 07/23/23 Tri Watt MD [address] [address] Referring Physician Dermatology 07/22/23 Zhang Kessler MD [address] [place] [address] Referring Physician Ophthalmology 07/22/23 Danny Horner MD [address] [place] [address] Referring Physician Urology 07/22/23 Ten Eckert MD [address] [facility] [address] [place] [address] Referring Physician Cardiac Electrophysiology 07/22/23 Ssn/Ssbn Assistant Navigator Relationship Specialty Start Date End Date Patti Thomas DO [address] [place] [address] PCP - ACO Reach 04/02/23 Patti Thomas DO [address] [facility] [address] [place] [address] PCP - General Internal Medicine 07/23/23 Tri Watt MD [address] [address] Referring Physician Dermatology 07/22/23 Zhang Kessler MD [address] [place] [address] Referring Physician Ophthalmology 07/22/23 Danny Horner MD [address] [place] [address] Referring Physician Urology 07/22/23 Ten cEkert MD [address] [facility] [address] [place] [address] Referring Physician Cardiac Electrophysiology 07/22/23 Ssn/Ssbn Assistant Navigator Relationship Specialty Start Date End Date Patti Thmoas DO [address] [place] [address] PCP - ACO Reach 04/02/23 Patti Thomas DO [address] [place] [address] PCP - General Internal Medicine 07/23/23 Tri Watt MD [address] [address] Referring Physician Dermatology 07/22/23 Zhang Kessler MD [address] [place] [id number] Referring Physician Ophthalmology 07/22/23 Danny Horner MD [address] [place] [address] Referring Physician Urology 07/22/23 Ten Eckert MD [address] [place] [address] Referring Physician Cardiac Electrophysiology 07/22/23 Ssn/Ssbn Assistant Navigator Relationship Specialty Start Date End Date Patti Thomas DO [address] [place] [address] PCP - ACO Reach 04/02/23 Patti Thomas DO [address] [place] [address] PCP - General Internal Medicine 07/23/23 Tri Watt MD [address] [address] Referring Physician Dermatology 07/22/23 Zhang Kessler MD [address] [place] [address] Referring Physician Ophthalmology 07/22/23 Danny Horner MD [address] [place] [address] Referring Physician Urology 07/22/23 Ten Eckert MD [address] [facility] [address] [place] [address] Referring Physician Cardiac Electrophysiology 07/22/23 Ssn/Ssbn Assistant Navigator Relationship Specialty Start Date End Date Patti Thomas DO [address] [facility] [address] [place] [address] PCP - ACO Reach 04/02/23 Patti Thomas DO [address] [facility] [address] [place] [address] PCP - General Internal Medicine 07/23/23 Tri Watt MD [address] [address] Referring Physician Dermatology 07/22/23 Zhang Kessler MD [address] [place] [address] Referring Physician Ophthalmology 07/22/23 Danny Horner MD [address] [place] [address] Referring Physician Urology 07/22/23 Ten Eckert MD [address] [place] [address] Referring Physician Cardiac Electrophysiology 07/22/23 Shameka Sincalir LPN [address] [place] [address] Licensed Practical Nurse Family Medicine 04/26/25 04/26/25 Luana Hutchinson, DENISHA [address] [place] [address] Registered Nurse Family Medicine 04/26/25 FOR RECORDS PERTAINING TO PATIENTS WHO ARE [...] BE BASED ON THE PRIMARY CLINICAL RECORDS. [employer] [facility]. provides no warranty or guarantee of the accuracy or completeness of information in this document.
[2025-07-17 08:08] LABS: Anion Gap 12.4; Blood Urea Nitrogen 26.0 mg/dL (7.0-18.0); Calcium 8.7 mg/dL (8.5-10.1); Carbon Dioxide 32.3 mmol/L (21.0-32.0); Chloride 104 mmol/L (98-107); Estimated GFR (African America 57 (>=60 mL/min/1.73m^2); Estimated GFR (Non-African Ame 47 (>=60 mL/min/1.73m^2); Glucose 273 mg/dL (74-106); Potassium 3.7 mmol/L (3.5-5.1); Sodium 145 mmol/L (136-145)
== END 2025-07-17 07:46 | disposition home or self-care (01) ==
LOC: LAB 07:46
PROVIDERS: PCP Internal Medicine
DX: I10 Essential (primary) hypertension (principal)
CPT/HCPCS: 36415; 80048

== ENCOUNTER 2025-10-26 12:30 | Outpatient (OUT) | payer MEDICARE, OTHER, SELFPAY | END 2025-10-26 12:31 | disposition home or self-care (01) | LOC: FHNEUROLOG 12:30 | PROVIDERS: PCP Internal Medicine; Visit Provider Psychiatry & Neurology Neurology | DX: G47.33 Obstructive sleep apnea (adult) (pediatric) (principal) | CPT/HCPCS: G0463 ==